=== PATIENT | male | born 1940 | race Caucasian/White ===

== ENCOUNTER → 2016-12-04 | Outpatient (CLI) | payer OTHER, BC ==
[~2016-12-04] MED LIST: ASPI1TAB83 PO; CHOL1TAB2 PO; CRG625 PO; CYAN100020 PO; FISHOIL PO; GLUCTAB7 PO; LISI-729 PO; LPT/40 PO; SERT-234 PO; SITA50TA5 PO; VITA25006 PO; VITACAP26 PO
[2016-12-04 09:51] LABS: ESTIMATED AVERAGE GLUCOSE 148 mg/dl; HA1C FLAG Normal (Normal)
[2016-12-04 10:01] LABS: ALT/SGPT 22 U/L (12-78); AST/SGOT 11 U/L (15-37); BLOOD UREA NITROGEN 25 mg/dl (7-18); BUN/CREATININE RATIO 21.2 (10-20); CALCIUM 8.9 mg/dl (8.5-10.1); CARBON DIOXIDE 24 mmol/L (21-32); CHLORIDE 106 mmol/L (98-107); GLUCOSE 155 mg/dl (70-99); POTASSIUM 4.1 mmol/L (3.5-5.1); SODIUM 139 mmol/L (136-145)
[2016-12-04 10:12] LABS: ALB/GLOB RATIO 1.1 (0.9-2); ALKALINE PHOSPHATASE 49 U/L (45-117); CHOLESTEROL 87 mg/dl (0-200); CHOLESTEROL/HDL RATIO 2.6; HDL CHOLESTEROL 34 mg/dl; LDL CHOLESTEROL CALCULATED 32 mg/dl; RATIO 455.6 mcg/mg (0-30.0); TRIGLYCERIDES 104 mg/dl (0-150); VERY LOW DENSITY LIPOPROT CALC 21 mg/dl
== END | disposition home or self-care (01) ==
LOC: C.LAB1850 08:29
PROVIDERS: ATTEND Family Medicine
DX: I25.10 Atherosclerotic heart disease of native coronary artery without angina pectoris (principal); E11.9 Type 2 diabetes mellitus without complications; E78.5 Hyperlipidemia, unspecified; I10 Essential (primary) hypertension

== ENCOUNTER → 2017-06-29 | Outpatient (CLI) | payer OTHER, BC ==
[~2017-06-29] MED LIST changes: +ASCO100061 PO; +CARV6.252 PO; +CIPR1TAB11 PO; +OMEG10007 PO; +TAMS0.4C38 PO
[2017-06-29 09:28] LABS: HEMATOCRIT 39.1 % (42-52); MEAN CELL VOLUME 95.1 fL (80-100); MEAN CORPUSCULAR HEMOGLOBIN 31.4 pg (25-34); MEAN PLATELET VOLUME 11.9 fL (7.4-10.4); PLATELET COUNT 149 K/uL (130-400); RED BLOOD COUNT 4.11 M/uL (4.7-6.1); WHITE BLOOD COUNT 7.03 K/uL (4.8-10.8)
[2017-06-29 09:45] LABS: ALT/SGPT 23 U/L (12-78); BLOOD UREA NITROGEN 18 mg/dl (7-18); BUN/CREATININE RATIO 16.5 (10-20); CARBON DIOXIDE 28 mmol/L (21-32); CHLORIDE 105 mmol/L (98-107); CHOLESTEROL 103 mg/dl (0-200); GLUCOSE 170 mg/dl (70-99); SODIUM 140 mmol/L (136-145); TRIGLYCERIDES 148 mg/dl (0-150); VERY LOW DENSITY LIPOPROT CALC 30 mg/dl
[2017-06-29 09:47] LABS: ALB/GLOB RATIO 1.1 (0.9-2); ALKALINE PHOSPHATASE 53 U/L (45-117); AST/SGOT 12 U/L (15-37); CHOLESTEROL/HDL RATIO 2.8; HDL CHOLESTEROL 37 mg/dl; LDL CHOLESTEROL CALCULATED 36 mg/dl
[2017-06-29 10:30] LABS: ESTIMATED AVERAGE GLUCOSE 163 mg/dl; HA1C FLAG Normal (Normal)
== END ==
LOC: C.LAB1850 08:11
PROVIDERS: ATTEND Family Medicine
DX: E55.9 Vitamin D deficiency, unspecified (principal); D64.9 Anemia, unspecified; E11.9 Type 2 diabetes mellitus without complications; E78.5 Hyperlipidemia, unspecified

== ENCOUNTER 2017-06-30 08:00 | Emergency (ER) | payer OTHER, BC ==
[~2017-06-30] VITALS: Ht 188 cm; Wt 105.9 kg
[~2017-06-30 08:00] MED LIST changes: -ASCO100061 PO; -CARV6.252 PO; -CIPR1TAB11 PO; -OMEG10007 PO; -TAMS0.4C38 PO
[2017-06-30 08:04] VITALS: TEMP 36.4; Ht 188 cm; Wt 105.9 kg
[2017-06-30] MEDS ORDERED: CARV6.252 PO (08:33)
[2017-06-30] MEDS ORDERED: ASCO100061 PO (08:33)
[2017-06-30] MEDS ORDERED: OMEG10007 PO (08:33)
--- NOTE | 2017-06-30 08:37 | EMERGENCY ROOM VISIT NOTE ---
History First contact with patient: 08:09 Chief Complaint: URINARY SYMPTOMS Stated Complaint: PROBLEMS OF FREQ./PAINFUL URINATION History of Present Illness The patient is a 76 year old male who presents to the Emergency Room with complaints of urinary pain The patient states that he has had 1 day or urinary burning with urination, rates the pain 5/10. The pain is at the meatus. He also urinates with a sense of incomplete voiding. He was urinating 3-4 times per hour but had difficulty getting good urinary flow. He denies any prostate problems. He denies flank pain or CVA pain. He denies abdominal pain, nausea, vomiting, diarrhea, or constipation. He denies chest pain, palpitations, shortness of breath, orthopnea, lower extremity edema. He denies shortness of breath, wheezing, or cough. He has not had fevers, chills or sweats. His appetite and intake of been within normal limits. Review of Systems A 10 point review of systems was negative unless stated above. Past Medical/Surgical History Medical Problems: (1) Ischemic cardiomyopathy (2) Ventricular fibrillation Family History No known family history Social History Smoking Status: Former Smoker Alcohol Use: none Drug Use: none Marital Status: Housing Status: lives with significant other Occupation Status: retired Current/Historical Medications Scheduled Ascorbic Acid (Ascorbic Acid), 1 TAB PO DAILY Aspirin (Aspirin), 81 MG PO DAILY Atorvastatin (Lipitor), 40 MG PO DAILY Carvedilol (Coreg), 6.25 MG PO BID Cholecalciferol (Vitamin D-3), 1,000 INTER.UNIT PO DAILY Ciprofloxacin Tab (Cipro), 2 TAB PO BID Cyanocobalamin (Vitamin B12), 1,000 MCG PO DAILY Fish Oil ([place]-3), 2 CAP PO DAILY Goomobcskaw-Nzqgorqxgqn-Zxj C- (Glucosamine Chondroitin), 1 TAB PO DAILY Lisinopril (Zestril), 5 MG PO DAILY Sertraline (Zoloft), 100 MG PO DAILY Sitagliptin-Metformin Hcl (Janumet), 50-1,000 MG PO BID Tamsulosin Hcl (Flomax), 0.4 MG PO DAILY Allergies NKA Physical Exam Vital Signs Date Time Temp Pulse Resp B/P (MAP) Pulse Ox O2 Delivery O2 Flow Rate FiO2 06/30/17 09:59 70 18 124/58 96 Room Air 06/30/17 08:04 36.4 71 17 126/71 97 Room Air Pain Rating (0-10): 0 Physical Exam Constitutional: Vital signs as above were reviewed. Eyes: Pupils equal, round, and reactive to light. Extraocular muscles are intact. No proptosis. No photophobia. ENT: Mucous membranes are moist. Oropharynx is clear. No sinus tenderness. Cardiovascular: Heart with a regular rate and rhythm. No pedal edema appreciated. Respiratory: Lungs clear to auscultation bilaterally. No wheezes, rales, or rhonchi appreciated. No accessory muscle use. No retractions. No increased work of breathing. GI: Abdomen soft, nontender, nondistended. Normal active bowel sounds. No abdominal hernias appreciated. No rebound. No guarding. No flank pain : No CVA tenderness appreciated. Rectal examination: No obvious prostatic enlargement or tenderness to palpation Musculoskeletal: No midline cervical or vertebral tenderness. No gross deformities. No bony tenderness. No calf swelling or tenderness. Integumentary: Warm, dry, no rashes appreciated. Neurological: Patient awake, alert, and oriented x 3. Lymph: No cervical lymphadenopathy appreciated. Medical Decision & Procedures Laboratory Results Test 06/30/17 08:07 Urine Color YELLOW Urine Appearance CLEAR (CLEAR) Urine pH 5.5 (4.5-7.5) Urine Specific [place] 1.015 (1.000-1.030) Urine Protein 1+ (NEG) Urine Glucose (UA) NEG (NEG) Urine Ketones NEG (NEG) Urine Occult Blood 2+ (NEG) Urine Nitrite NEG (NEG) Urine Bilirubin NEG (NEG) Urine Urobilinogen NEG (NEG) Urine Leukocyte Esterase MODERATE (NEG) Urine WBC (Auto) 10-30 /hpf (0-5) Urine RBC (Auto) 10-30 /hpf (0-4) Urine Hyaline Casts (Auto) 1-5 /lpf (0-5) Urine Epithelial Cells (Auto) 10-20 /lpf (0-5) Urine Bacteria (Auto) NEG (NEG) ED Course 08:10 - The patient was seen and evaluated by Dr. Danyel Rose MD [facility] UA and urine culture ordered 08:40 - Reviewed case with Dr. Katelynn Olmos. Bladder scanned 09:10 - Bladder scanned for 210 ml; catheterization deferred 09:15 - Antibiotics, Flomax prescribed Discussed post-hospital care with patient and plan to be re-assessed by PCP this week Patient discharge paperwork completed; patient discharged in stable condition Medical Decision This is a 76-year-old male presenting with dysuria for 1 day. Differential diagnosis includes urinary tract infection, STI, prostatitis, benign prostatic hypertrophy, pyelonephritis. The patient has stated a history of urinary tract stone, however symptoms were reportedly different at that time compared to now. His [id number] urinalysis did show leukocyte esterase without nitrites, and confirmatory urinalysis showed Leukocyte esterase without nitrites in addition to WBCs in the urine. The patient did not have any overt prostate tenderness or enlargement. The patient did have labs done yesterday by his PCP, in setting of being hemodynamically stable and appearing well, we reviewed these labs and noted that he was at baseline for his hemoglobin as well as his creatinine. As such, there was no acute indication to repeat labs in the emergency room today. The patient was bladder scanned in the emergency room for 210 ml. as such was no indication to place a straight a Mcneil catheter. Urinalysis was suggestive of UTI and outflow obstruction. Therefore both urinary tract infection as well as prostatitis with secondary mild outflow tract obstruction were considered in the diagnosis. Fortunately renal function was reviewed from yesterday and was normal. The patient was discharged on a course of ciprofloxacin with dosage adjusted to cover for a prostatitis. We recommended a minimum of 7 days to cover for urinary tract infection to the patient, and noted to him that the PCP will have to reassess and determine if a full 6 weeks course was required. He was also given Flomax given his symptoms of outflow obstruction. He was discharged in stable condition, given instructions on when to return to the emergency department or see his PCP. Head Trauma GCS Score: 15 Blood Pressure Screening Patient's blood pressure: Normal blood pressure Impression Primary Impression: Urinary tract infection Additional Impression: Prostatitis Departure Information Prescriptions Tamsulosin Hcl (FLOMAX) 0.4 Mg Cap 0.4 MG PO DAILY for 14 Days, #14 CAP Prov: Danyel Rose MD 06/30/17 Ciprofloxacin Tab (Cipro) 250 Mg Tab 2 TAB PO BID for 14 Days, #56 TAB Prov: Danyel Rose MD 06/30/17 Referrals Ritu Farrar MD (PCP) Patient Instructions My [facility] Problem Qualifiers
[2017-06-30 08:54] LABS: URINE APPEARANCE CLEAR (CLEAR); URINE BILIRUBIN NEG (NEG); URINE COLOR YELLOW; URINE NITRITE NEG (NEG); URINE PH 5.5 (4.5-7.5); URINE SPECIFIC GRAVITY 1.015 (1.000-1.030); UROBILINOGEN NEG (NEG)
[2017-06-30 08:59] LABS: MANUAL MICROSCOPIC REQUIRED? NO; REVIEW REQ? NO
[2017-06-30] MEDS ORDERED: TAMS0.4C38 PO (09:17)
[2017-06-30] MEDS ORDERED: CIPR1TAB11 PO (09:17)
[2017-06-30 09:59] VITALS: BP 124/58; PULSE 70; O2SAT 96
--- NOTE | 2017-06-30 14:53 | EMERGENCY ROOM VISIT NOTE ---
ED Visit Note First contact with patient: 08:09 Resident Physician Supervision Note: I interviewed and examined the patient. Discussed with Dr. Rose and agree with findings and plan as documented in the note. Any exceptions or clarifications are listed here: [None] The patient appeared to be doing well on exam. We discussed the urinalysis and physical exam findings. I did explain my concern over prostatitis versus UTI. The patient will be placed on Cipro 500 mg twice a day for 14 days. He will require an extended course and his PCP feels this is concerning for prostatitis at that time. Urine culture is pending. Documented By: Bruna Olmos
== END 2017-06-30 10:02 | disposition home or self-care (01) ==
LOC: C.EDB 08:02
DX: N39.0 Urinary tract infection, site not specified (principal); N41.9 Inflammatory disease of prostate, unspecified; I25.5 Ischemic cardiomyopathy; I49.01 Ventricular fibrillation; Z87.891 Personal history of nicotine dependence; Z79.82 Long term (current) use of aspirin; Z79.899 Other long term (current) drug therapy

== ENCOUNTER → 2017-08-06 | Outpatient (CLI) | payer OTHER, BC ==
[~2017-08-06] MED LIST changes: +ASCO100061 PO; +CARV6.252 PO; -CRG625 PO; -FISHOIL PO; +OMEG10007 PO; -VITA25006 PO; -VITACAP26 PO
== END | disposition home or self-care (01) ==
LOC: C.LAB1850 09:45
PROVIDERS: ATTEND Urology
DX: N41.1 Chronic prostatitis (principal)

== ENCOUNTER → 2017-09-24 | Outpatient (CLI) | payer OTHER, BC ==
--- NOTE | 2017-09-24 10:03 | DIAGNOSTIC IMAGING REPORT ---
KUB CLINICAL HISTORY: BLADDER STONE calcifications COMPARISON STUDY: CT 02/24/2011 FINDINGS: Nonobstructive bowel pattern. Several calcifications overlying the left kidney. Largest measures 3 cm overlying the left renal pelvis. 3 smaller calcifications overlying the lower pole left kidney measuring up to 1 cm. No significant right-sided nephrocalcinosis. Bowel pattern is nonobstructive. IMPRESSION: Several calcifications overlying left renal pelvis and lower pole left kidney with dimensions as noted. Nonobstructive bowel pattern. No significant pelvic bladder calcifications The above report was generated using voice recognition software. It may contain grammatical, syntax or spelling errors. Electronically signed by: Chaka Mason M.D. 09/24/2017 10:02 AM Dictated Date/Time: 09/24/2017 9:59 AM
== END | disposition home or self-care (01) ==
LOC: C.RAD1850 09:13
PROVIDERS: ATTEND Urology
DX: N21.0 Calculus in bladder (principal)

== ENCOUNTER → 2017-10-03 | Outpatient (CLI) | payer OTHER, BC ==
--- NOTE | 2017-10-03 09:55 | DIAGNOSTIC IMAGING REPORT ---
CT SCAN OF THE ABDOMEN AND PELVIS WITHOUT CONTRAST CLINICAL HISTORY: KIDNEY STONES COMPARISON STUDY: 02/24/2011 TECHNIQUE: CT scan of the abdomen and pelvis was performed from the lung bases to the proximal femurs. Images are reviewed in the axial, sagittal, and coronal planes. IV contrast was not administered for this examination. A dose lowering technique was utilized adhering to the principles of ALARA. CT DOSE: 936.52 mGy.cm FINDINGS: Lower chest: There is bilateral subpleural reticulation. There are no pleural effusions. Liver: The unenhanced liver is normal in size, contour, and attenuation. There is no intrahepatic biliary ductal dilatation. Gallbladder: Unremarkable. Spleen: Normal in size and attenuation. Pancreas: Unremarkable. Adrenal glands: Unremarkable. Kidneys: No right renal calculi are visualized. There is no right-sided hydronephrosis. There is mild to moderate left-sided hydronephrosis. There is a 2.5 cm calculus within the left renal pelvis. There are lower pole left renal calculi measuring 7 mm and 10 mm respectively. There are 2 punctate mid pole left renal calculi. There is left renal pelvis edema, likely secondary to obstructive change. Superimposed infection cannot be excluded. There is a ureteral transition at the level of the ureteral pelvic junction. This could be congenital, secondary to a stricture, or be secondary to the left renal pelvic calculus which may intermittently obstruct at this level. Bowel: There are no transition zones indicate bowel obstruction. There is colonic diverticulosis. There are no acute peridiverticular inflammatory changes. There are no findings to indicate acute appendicitis. Peritoneum: There is no intraperitoneal free air or abdominal ascites. There is a small fat-containing left inguinal hernia. Vasculature: The abdominal aorta is normal in course and caliber. Adenopathy: None. Pelvic viscera: The bladder, and pelvic viscera are unremarkable. Skeletal structures: No destructive osseous lesions are seen. IMPRESSION: 1. Left-sided nephrolithiasis. This includes a 2.5 cm calculus within the left renal pelvis, with secondary obstructive changes. There is mild to moderate left-sided hydronephrosis. There is left renal pelvic edema, likely secondary to obstruction although a superimposed infection could appear similar. Electronically signed by: Kevin Frias M.D. 10/03/2017 9:54 AM Dictated Date/Time: 10/03/2017 9:47 AM
== END | disposition home or self-care (01) ==
LOC: C.CTS 09:24
PROVIDERS: ATTEND Urology
DX: N20.0 Calculus of kidney (principal)

== ENCOUNTER 2017-10-26 15:01 | Observation (INO) | payer OTHER, BC ==
[~2017-10-26] VITALS: Ht 188 cm; Wt 100.9 kg
--- NOTE | 2017-10-26 15:35 | EMERGENCY ROOM VISIT NOTE ---
History Report prepared by Vini: Jos Galdamez Under the Supervision of: Dr. Lc Burnham M.D. First contact with patient: 15:27 Chief Complaint: CARDIAC ASSESSMENT Stated Complaint: DIZZINESS, DEFIBRILLATOR WENT OFF History of Present Illness The patient is a 76 year old male who presents to the Emergency Room for a cardiac assessment because his defibrillator suddenly went off around 1420 this afternoon while scraping some ice. He notes that he got dizzy prior to it going off. The patient denies any abdominal pain, fever, chills, nausea, vomiting, and diarrhea. He notes that he has been eating normally. Source of History: patient Onset: 1420 Position: other (heart) Quality: other (defibrillator went off) Timing: other (sudden) Associated Symptoms: No fevers, No chills, No nausea, No vomiting, No abdominal pain, No diarrhea Review of Systems See HPI for pertinent positives & negatives. A total of 10 systems reviewed and were otherwise negative. Past Medical & Surgical Medical Problems: (1) Defibrillator discharge (2) Ischemic cardiomyopathy (3) Ventricular fibrillation Social History Smoking Status: Former Smoker Alcohol Use: none Drug Use: none Marital Status: Housing Status: lives with significant other Occupation Status: retired Current/Historical Medications Scheduled Ascorbic Acid (Ascorbic Acid), 1,000 MG PO DAILY Aspirin (Aspirin), 81 MG PO DAILY Atorvastatin (Lipitor), 40 MG PO DAILY Carvedilol (Coreg), 12.5 MG PO BID Cholecalciferol (Vitamin D-3), 1,000 INTER.UNIT PO DAILY Cinnamon (Cinnamon), 1,000 MG PO DAILY Cyanocobalamin (Vitamin B12), 1,000 MCG PO DAILY Fish Oil ([place]-3), 2 CAP PO DAILY Glucosamine-Chondroitin (Glucosamine/Chondroitin), 1 TAB PO DAILY Lisinopril (Zestril), 20 MG PO DAILY Multivitamin (Multivitamin), 1 TAB PO DAILY Sitagliptin-Metformin Hcl (Janumet), 1 TAB PO BID Allergies Coded Allergies: No Known Allergies (Unverified , ., 06/30/17) Physical Exam Vital Signs Date Time Temp Pulse Resp B/P (MAP) Pulse Ox O2 Delivery O2 Flow Rate FiO2 10/26/17 17:19 68 20 119/75 96 Room Air 10/26/17 16:03 94 Room Air 10/26/17 16:03 94 Room Air 10/26/17 16:03 70 17 128/62 94 Room Air 10/26/17 15:49 69 10/26/17 15:10 36.6 79 18 147/71 97 Physical Exam GENERAL: Patient is a healthy-appearing well-nourished male HEAD: Normocephalic atraumatic EYES: Ocular movements intact pupils equal and react to light OROPHARYNX mucous membranes are moist no exudates present no erythema or edema present NECK: Supple no nuchal rigidity CHEST: Good equal expansion LUNGS: Clear and equal to auscultation CARDIAC: Normal S1 and S2 ABDOMEN: Soft nontender no guarding BACK: No CVA tenderness EXTREMITIES: No pain upon palpation normal muscle strength in all groups no clubbing cyanosis or edema NEURO: Patient is following commands and answering questions appropriately. Alert and oriented x3 Cranial Nerves 2-12 grossly intact Medical Decision & Procedures ER Provider Diagnostic Interpretation: Radiology results as stated below per my review and radiologist interpretation: CHEST ONE VIEW PORTABLE CLINICAL HISTORY: 76 years-old Male presenting with CHEST PAIN. TECHNIQUE: Portable upright AP view of the chest was obtained. COMPARISON: 02/26/2011. FINDINGS: Left subclavian implanted cardiac defibrillator with lead to the right ventricular apex unchanged. Median sternotomy wires and bypass graft rings noted. Multiple mediastinal surgical clips also noted. Atherosclerosis of aortic arch. Cardiac silhouette normal in size. Lungs and pleural spaces clear. Specifically, no pneumothorax. Hyperdensity at the lung apices could suggest calcification or pleurodesis. Post traumatic deformity of the left ribs. Degenerative changes of the spine. Upper abdomen normal. IMPRESSION: 1. No acute cardiopulmonary disease. Electronically signed by: Gavin Torres M.D. 10/26/2017 3:49 PM Dictated Date/Time: 10/26/2017 3:48 PM Laboratory Results 10/26/17 16:00 Red Blood Count 4.16, Mean Corpuscular Volume 93.0, Mean Corpuscular Hemoglobin 32.2, Mean Corpuscular Hemoglobin Concent 34.6, Mean Platelet Volume 12.1, Neutrophils (%) (Auto) 61.9, Lymphocytes (%) (Auto) 24.9, Monocytes (%) (Auto) 10.4, Eosinophils (%) (Auto) 2.4, Basophils (%) (Auto) 0.1, Neutrophils # (Auto ) 4.32, Lymphocytes # (Auto) 1.74, Monocytes # (Auto) 0.73, Eosinophils # (Auto ) 0.17, Basophils # (Auto) 0.01 Test 10/26/17 16:00 10/26/17 17:20 White Blood Count 6.99 K/uL (4.8-10.8) Red Blood Count 4.16 M/uL (4.7-6.1) Hemoglobin 13.4 g/dL (14.0-18.0) Hematocrit 38.7 % (42-52) Mean Corpuscular Volume 93.0 fL (80-100) Mean Corpuscular Hemoglobin 32.2 pg (25-34) Mean Corpuscular Hemoglobin Concent 34.6 g/dl (32-36) Platelet Count 153 K/uL (130-400) Mean Platelet Volume 12.1 fL (7.4-10.4) Neutrophils (%) (Auto) 61.9 % Lymphocytes (%) (Auto) 24.9 % Monocytes (%) (Auto) 10.4 % Eosinophils (%) (Auto) 2.4 % Basophils (%) (Auto) 0.1 % Neutrophils # (Auto) 4.32 K/uL (1.4-6.5) Lymphocytes # (Auto) 1.74 K/uL (1.2-3.4) Monocytes # (Auto) 0.73 K/uL (0.11-0.59) Eosinophils # (Auto) 0.17 K/uL (0-0.5) Basophils # (Auto) 0.01 K/uL (0-0.2) RDW Standard Deviation 45.7 fL (36.4-46.3) RDW Coefficient of Variation 13.4 % (11.5-14.5) Immature Granulocyte % (Auto) 0.3 % Immature Granulocyte # (Auto) 0.02 K/uL (0.00-0.02) Prothrombin Time 10.2 SECONDS (9.0-12.0) Prothromb Time International Ratio 1.0 (0.9-1.1) Activated Partial Thromboplast Time 25.2 SECONDS (21.0-31.0) Partial Thromboplastin Ratio 1.0 Total Bilirubin 0.5 mg/dl (0.2-1) Direct Bilirubin 0.1 mg/dl (0-0.2) Aspartate Amino Transf (AST/SGOT) 18 U/L (15-37) Alanine Aminotransferase (ALT/SGPT) 30 U/L (12-78) Alkaline Phosphatase 57 U/L (45-117) Total Creatine Kinase 72 U/L (39-308) Creatine Kinase MB 1.7 ng/ml (0.5-3.6) Creatine Kinase MB Ratio 2.4 (0-3.0) Total Protein 7.7 gm/dl (6.4-8.2) Albumin 3.8 gm/dl (3.4-5.0) Lipase 477 U/L (73-393) Influenza Type A Antigen Neg for Influ A (NEG) Influenza Type B Antigen Neg for Influ B (NEG) Labs reviewed by ED physician. Medications Administered Medications (Trade) Dose Ordered Sig/Tomy Route Start Time Stop Time Status Last Admin Dose Admin Amiodarone HCl (Cordarone Tab) 200 mg NOW STAT PO 10/26/17 17:01 10/26/17 17:02 DC 10/26/17 17:20 200 MG ECG Indication: other (defibrillator went off) Rate (beats per minute): 74 Rhythm: normal sinus Findings: other (Sinus arrythmia and old inferior infarct) Change: Patient's electrocardiogram per my interpretation. ED Course 1527: Past medical records reviewed. The patient was evaluated in room B11. A complete history and physical examination was performed. 1617: I discussed the patient's case with Dr. Serra - Cardiology, and he is going to talk with Dr. Mcnair - Cardiology about the case. 1701: Amiodarone HCl 200mg PO 1710: I reevaluated the patient, and I discussed the treatment plan with him and his family. He will be evaluated for further management by the hospitalist. 1713: I discussed the patient's case with Dr. Vazquez - [facility] Hospitalist, he has agreed to evaluate the patient for further management and care. Medical Decision Differential diagnosis: Etiologies such as cardiac ischemia, aortic dissection, pulmonary embolism, pneumonia, pneumothorax, musculoskeletal, infections, pericarditis, myocarditis , esophageal rupture, gastrointestinal, as well as others were entertained. This is a 76-year-old male who presents emergency department after in ICD firing. I did discuss the patient with his salesperson automobiles who asked that the patient be admitted and started on amiodarone. The pacer was interrogated by the [employer] and he has had 7 such episodes this week. Patient and family were in agreement with the treatment plan. Medication Reconcilliation Current Medication List: was personally reviewed by me Blood Pressure Screening Patient's blood pressure: Elevated blood pressure Monitored by the hospitalist Consults Time Called: 1701 Consulting Physician: Dr. George BERG Hospitalist Returned Call: [phone] I discussed the patient's case with Dr. Dr. George BERG Hospitalist, he has agreed to evaluate the patient for further management and care. Additional Consults: Time Called: 161 Consulted Physician: Dr. Serra - Cardiology Returned Call: [phone] Additional Comments: I discussed the patient's case with Dr. Maryse Riojas Cardiology, and he is going to talk with Dr. Mcnair - Cardiology about the case. Impression Primary Impression: Ventricular tachycardia Additional Impression: Defibrillator discharge Scribe Attestation The scribe's documentation has been prepared under my direction and personally reviewed by me in its entirety. I confirm that the note above accurately reflects all work, treatment, procedures, and medical decision making performed by me. Departure Information Dispostion Being Evaluated By Hospitalist Referrals Ritu Farrar MD (PCP) Patient Instructions My [facility] Problem Qualifiers
--- NOTE | 2017-10-26 15:51 | DIAGNOSTIC IMAGING REPORT ---
CHEST ONE VIEW PORTABLE CLINICAL HISTORY: 76 years-old Male presenting with CHEST PAIN. TECHNIQUE: Portable upright AP view of the chest was obtained. COMPARISON: 02/26/2011. FINDINGS: Left subclavian implanted cardiac defibrillator with lead to the right ventricular apex unchanged. Median sternotomy wires and bypass graft rings noted. Multiple mediastinal surgical clips also noted. Atherosclerosis of aortic arch. Cardiac silhouette normal in size. Lungs and pleural spaces clear. Specifically, no pneumothorax. Hyperdensity at the lung apices could suggest calcification or pleurodesis. Post traumatic deformity of the left ribs. Degenerative changes of the spine. Upper abdomen normal. IMPRESSION: 1. No acute cardiopulmonary disease. Electronically signed by: Gavin Torres M.D. 10/26/2017 3:49 PM Dictated Date/Time: 10/26/2017 3:48 PM
[2017-10-26] MEDS ORDERED: GLUC750T18 PO (16:03)
[2017-10-26] MEDS ORDERED: MULT-506 PO (16:03)
[2017-10-26] MEDS ORDERED: LISI-725 PO (16:03)
[2017-10-26] MEDS ORDERED: CINN1CAP2 PO (16:03)
[2017-10-26] MEDS ORDERED: CARV12.52 PO (16:03)
[2017-10-26 16:18] LABS: BASO % 0.1 %; BASO ABS # 0.01 K/uL (0-0.2); EOS % 2.4 %; EOS ABS # 0.17 K/uL (0-0.5); HEMATOCRIT 38.7 % (42-52); HEMOGLOBIN 13.4 g/dL (14.0-18.0); IG# 0.02 K/uL (0.00-0.02); LYMPH % 24.9 %; LYMPH ABS # 1.74 K/uL (1.2-3.4); MEAN CORPUSCULAR HEMOGLOBIN 32.2 pg (25-34); MEAN CORPUSCULAR HGB CONC 34.6 g/dl (32-36); MEAN PLATELET VOLUME 12.1 fL (7.4-10.4); MONO % 10.4 %; MONO ABS # 0.73 K/uL (0.11-0.59); NEUT % 61.9 %; NEUT ABS # 4.32 K/uL (1.4-6.5); PLATELET COUNT 153 K/uL (130-400); RED CELL DISTRIBUTION WIDTH CV 13.4 % (11.5-14.5); RED CELL DISTRIBUTION WIDTH SD 45.7 fL (36.4-46.3); WHITE BLOOD COUNT 6.99 K/uL (4.8-10.8)
[2017-10-26 16:38] LABS: ALBUMIN 3.8 gm/dl (3.4-5.0); ALT/SGPT 30 U/L (12-78); AST/SGOT 18 U/L (15-37); BLOOD UREA NITROGEN 24 mg/dl (7-18); CALCIUM 9.2 mg/dl (8.5-10.1); CARBON DIOXIDE 25 mmol/L (21-32); CREATININE 1.23 mg/dl (0.60-1.40); GLUCOSE 173 mg/dl (70-99); LIPASE 477 U/L (73-393); POTASSIUM 4.2 mmol/L (3.5-5.1); SODIUM 136 mmol/L (136-145)
[2017-10-26 16:43] LABS: ALKALINE PHOSPHATASE 57 U/L (45-117); CKMB 1.7 ng/ml (0.5-3.6); TOTAL PROTEIN 7.7 gm/dl (6.4-8.2)
[2017-10-26] MEDS ORDERED: AMIODARONE 200 MG TAB PO STA (17:01)
[2017-10-26] MEDS ORDERED: ACETAMINOPHEN 325 MG TAB PO PRN (17:30)
[2017-10-26] MEDS ORDERED: ALUMINUM/MAGNESIUM/SIMETH (MAALOX MAX) 30 ML UDC PO PRN (17:30)
[2017-10-26] MEDS ORDERED: NITROGLYCERIN 0.4 MG SL PER TAB CHARGE SL PRN (17:30)
[2017-10-26] MEDS ORDERED: MoRPHine SULFATE 2 MG/ML CARP IV PRN (17:30)
[2017-10-26] MEDS ORDERED: ONDANSETRON INJ 2 MG/ML 2 ML VIAL IV PRN (17:30)
[2017-10-26] MEDS ORDERED: MAGNESIUM HYDROXIDE SUSP 30 ML UDC PO PRN (17:30)
[2017-10-26] MEDS ORDERED: POLYETHYLENE (MIRALAX) 17 GM PACK PO PRN (17:30)
[2017-10-26 18:00] LABS: INFLUENZA B ANTIGEN Neg for Influ B (NEG)
--- NOTE | 2017-10-26 18:02 | History and Physical ---
History & Physical Date & Time of Service: Oct 26, 2017 at 17:36 Chief Complaint: Dizziness, Defibrillator Went Off Primary Care Physician: Ritu Farrar MD History of Present Illness Source: patient 76 y/o M Hx CAD, HTN, HPL, DM II, VF - defib placed 2001 - the pt had an episode of lightheadedness followed by his defibrillator discharging. This prompted him to attend the ER. His defibrillator was interrogated and 7 runs of sustained VT were appreciated over the past week. Cardiology was alerted and have instructed on admission for Amiodarone loading. The pt denies any CP, SOB, N/V, diaphoresis or fevers. 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 Smoking Status: Former Smoker Drug Use: none Marital Status: Housing status: lives with family Occupational Status: retired Immunizations History of Influenza Vaccine: N/A History of Tetanus Vaccine?: Yes History of Pneumococcal: Yes History of Hepatitis B Vaccine: No Multi-Drug Resistant Organisms History of MDRO: No Allergies Coded Allergies: No Known Allergies (Unverified , ., 06/30/17) Home Medications Scheduled Ascorbic Acid (Ascorbic Acid), 1,000 MG PO DAILY Aspirin (Aspirin), 81 MG PO DAILY Atorvastatin (Lipitor), 40 MG PO DAILY Carvedilol (Coreg), 12.5 MG PO BID Cholecalciferol (Vitamin D-3), 1,000 INTER.UNIT PO DAILY Cinnamon (Cinnamon), 1,000 MG PO DAILY Cyanocobalamin (Vitamin B12), 1,000 MCG PO DAILY Fish Oil ([place]-3), 2 CAP PO DAILY Glucosamine-Chondroitin (Glucosamine/Chondroitin), 1 TAB PO DAILY Lisinopril (Zestril), 20 MG PO DAILY Multivitamin (Multivitamin), 1 TAB PO DAILY Sitagliptin-Metformin Hcl (Janumet), 1 TAB PO BID Review of Systems Constitutional: No fever, No chills, No sweats Eyes: No worsening of vision ENT: No hearing loss, No unusual epistaxis, No nasal symptoms Respiratory: No cough, No sputum, No wheezing Cardiovascular: No chest pain, No orthopnea, No PND Abdomen: No pain, No vomiting Musculoskeletal: No joint pain Genitourinary - Male: No hematuria, No dysuria Neurologic: + problem reported (lightheaded prior to defib firing), No memory loss, No paralysis, No weakness Psychiatric: No depression symptoms Endocrine: No fatigue Hematologic / Lymphatic: No abnormal bleeding/bruising Integumentary: No rash Allergic / Immunologic: No environmental allergies Physical Exam Vital Signs Date Time Temp Pulse Resp B/P (MAP) Pulse Ox O2 Delivery O2 Flow Rate FiO2 10/26/17 17:19 68 20 119/75 96 Room Air 10/26/17 16:03 94 Room Air 10/26/17 16:03 94 Room Air 10/26/17 16:03 70 17 128/62 94 Room Air 10/26/17 15:49 69 10/26/17 15:10 36.6 79 18 147/71 97 General Appearance: WD/WN, no apparent distress, + pertinent finding (PLeasant , elderly male - AAO x 3 - no distress) Head: normocephalic Eyes: normal inspection ENT: normal ENT inspection, pharynx normal Neck: supple, no JVD Respiratory/Chest: chest non-tender, lungs clear, normal breath sounds Cardiovascular: regular rate, rhythm, no edema, no gallop Abdomen/GI: normal bowel sounds, non tender, soft Back: normal inspection Extremities/Musculoskelatal: normal inspection, no calf tenderness Neurologic/Psych: 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 II-XII nml as tested, no motor/sensory deficits, alert, oriented x 3 Skin: normal color Diagnostics Laboratory Results Results Past 24 Hours Test 10/26/17 16:00 10/26/17 17:20 Range/Units White Blood Count 6.99 4.8-10.8 K/uL Red Blood Count 4.16 4.7-6.1 M/uL Hemoglobin 13.4 14.0-18.0 g/dL Hematocrit 38.7 42-52 % Mean Corpuscular Volume 93.0 80-100 fL Mean Corpuscular Hemoglobin 32.2 25-34 pg Mean Corpuscular Hemoglobin Concent 34.6 32-36 g/dl Platelet Count 153 130-400 K/uL Mean Platelet Volume 12.1 7.4-10.4 fL Neutrophils (%) (Auto) 61.9 % Lymphocytes (%) (Auto) 24.9 % Monocytes (%) (Auto) 10.4 % Eosinophils (%) (Auto) 2.4 % Basophils (%) (Auto) 0.1 % Neutrophils # (Auto) 4.32 1.4-6.5 K/uL Lymphocytes # (Auto) 1.74 1.2-3.4 K/uL Monocytes # (Auto) 0.73 0.11-0.59 K/uL Eosinophils # (Auto) 0.17 0-0.5 K/uL Basophils # (Auto) 0.01 0-0.2 K/uL RDW Standard Deviation 45.7 36.4-46.3 fL RDW Coefficient of Variation 13.4 11.5-14.5 % Immature Granulocyte % (Auto) 0.3 % Immature Granulocyte # (Auto) 0.02 0.00-0.02 K/uL Sodium Level 136 136-145 mmol/L Potassium Level 4.2 3.5-5.1 mmol/L Chloride Level 103 98-107 mmol/L Carbon Dioxide Level 25 21-32 mmol/L Anion Gap 8.0 3-11 mmol/L Blood Urea Nitrogen 24 7-18 mg/dl Creatinine 1.23 0.60-1.40 mg/dl Est Creatinine Clear Calc Drug Dose 66.7 ml/min Estimated GFR () 66.1 Estimated GFR (Non- 57.1 BUN/Creatinine Ratio 19.8 10-20 Random Glucose 173 70-99 mg/dl Calcium Level 9.2 8.5-10.1 mg/dl Total Bilirubin 0.5 0.2-1 mg/dl Direct Bilirubin 0.1 0-0.2 mg/dl Aspartate Amino Transf (AST/SGOT) 18 15-37 U/L Alanine Aminotransferase (ALT/SGPT) 30 12-78 U/L Alkaline Phosphatase 57 45-117 U/L Total Creatine Kinase 72 39-308 U/L Creatine Kinase MB 1.7 0.5-3.6 ng/ml Creatine Kinase MB Ratio 2.4 0-3.0 Troponin I < 0.015 0-0.045 ng/ml Total Protein 7.7 6.4-8.2 gm/dl Albumin 3.8 3.4-5.0 gm/dl Lipase 477 73-393 U/L EKG Irregular sinus rhythm - inf inversions which are present on a previous EKG Impression Assessment and Plan 76 y/o M Hx CAD, HTN, HPL, DM II, VF - defib placed 2001 - the pt had an episode of lightheadedness followed by his defibrillator discharging. This prompted him to attend the ER. His defibrillator was interrogated and 7 runs of sustained VT were appreciated over the past week. Cardiology was alerted and have instructed on admission for Amiodarone loading. The pt denies any CP, SOB, N/V, diaphoresis or fevers. 1) Sustained VT - defib discharge - monitor on telemetry - started on loading dose of PO Amio per cardio instructions - will be evaluated by his warehouse logistics manager as inpatient 2) HTN - cont Carvedilol, Lisinopril 3) HPL - cont Atorvastatin 4) DM - placed on a SS Full code - Lovenox prophylaxis Total time for this admit including review of labs, meds, imaging, records - discussion with pt and ER attending - 40 min Level of Care Telemetry Resuscitation Status FULL RESUSCITATION VTE Prophylaxis VTE Risk Assessment Done? Y/N: Yes Risk Level: Moderate Given or contraindicated: Enoxaparin (Lovenox)SQ
[2017-10-26 19:26] VITALS: BP 131/72; PULSE 73; TEMP 36.7; O2SAT 95; Ht 188 cm; Wt 100.9 kg
[2017-10-26] MEDS: INSULIN ASPART 100 UNITS/ML 3 ML PEN SC SCH (19:44)
[2017-10-26 19:58] LABS: PTT PATIENT 25.2 SECONDS (21.0-31.0)
[2017-10-26] MEDS: CARVEDILOL 12.5 MG TAB PO SCH (21:13)
[2017-10-26] MEDS: AMIODARONE 200 MG TAB PO SCH (21:13)
[2017-10-26] MEDS ORDERED: IV FLUIDS COMPLETED PRN (21:15)
[2017-10-26] MEDS: ENOXAPARIN 40 MG/0.4 ML SYR SQ SCH (21:42)
[2017-10-26 23:12] VITALS: PULSE 77; O2SAT 98
[2017-10-26 23:39] VITALS: BP 107/60; PULSE 67; TEMP 36.4; O2SAT 97
[2017-10-27] VITALS (8 sets, daily range): BP systolic 91–128; BP diastolic 48–76; PULSE 65–73; TEMP 36.3–36.8; O2SAT 94–98
[2017-10-27] MEDS: CARVEDILOL 12.5 MG TAB PO SCH ×2 (07:25→21:44)
[2017-10-27] MEDS: ATORVASTATIN 20 MG TAB PO SCH (07:26)
[2017-10-27] MEDS: ASPIRIN 81 MG ECTAB PO SCH (07:26)
[2017-10-27] MEDS: AMIODARONE 200 MG TAB PO SCH ×4 (07:27→21:44)
[2017-10-27] MEDS: LISINOPRIL 20 MG TAB PO SCH (07:27)
[2017-10-27] MEDS: CYANOCOBALAMIN 500 MCG TAB (VIT B-12) PO SCH (07:28)
[2017-10-27] MEDS: INSULIN ASPART 100 UNITS/ML 3 ML PEN SC SCH ×4 (08:25→21:00)
[2017-10-27 08:28] LABS: BLOOD UREA NITROGEN 22 mg/dl (7-18); CALCIUM 8.9 mg/dl (8.5-10.1); CARBON DIOXIDE 28 mmol/L (21-32); CREATININE 1.26 mg/dl (0.60-1.40); GLUCOSE 199 mg/dl (70-99); POTASSIUM 4.3 mmol/L (3.5-5.1); SODIUM 137 mmol/L (136-145)
--- NOTE | 2017-10-27 14:03 | Hospitalist Progress Note ---
Hospitalist Progress Note Date of Service Oct 27, 2017. Subjective Pt evaluation today including: conversation w/ patient Patient is feeling well. He denies chest pain or shortness of breath. He did have a 14 beat run of V. tach on telemetry, followed by 1 normal beat, and then another 4 beat run of V. tach. All Other Systems: Reviewed and Negative Objective Vital Signs Date Time Temp Pulse Resp B/P (MAP) Pulse Ox O2 Delivery O2 Flow Rate FiO2 10/27/17 11:46 36.4 65 16 106/65 (79) 96 Nasal Cannula 10/27/17 11:36 Room Air 10/27/17 08:00 36.4 66 18 104/62 (76) 94 Room Air 10/27/17 08:00 Room Air 10/27/17 04:25 36.3 66 18 116/76 (89) 98 Room Air 10/27/17 04:00 Room Air 10/26/17 23:39 36.4 67 18 107/60 (76) 97 BiPAP 10/26/17 23:30 Room Air 10/26/17 23:12 77 98 10/26/17 20:00 Room Air 10/26/17 19:26 36.7 73 20 131/72 95 Room Air 10/26/17 18:44 74 22 158/90 95 10/26/17 17:19 68 20 119/75 96 Room Air 10/26/17 16:03 94 Room Air 10/26/17 16:03 94 Room Air 10/26/17 16:03 70 17 128/62 94 Room Air 10/26/17 15:49 69 10/26/17 15:10 36.6 79 18 147/71 97 Physical Exam General Appearance: WD/WN, no apparent distress Eyes: normal inspection, sclerae normal ENT: hearing grossly normal Neck: trachea midline Respiratory/Chest: lungs clear, normal breath sounds, no respiratory distress, no accessory muscle use Cardiovascular: regular rate, rhythm, no edema, no gallop, no murmur Abdomen: normal bowel sounds, non tender, soft, no organomegaly Extremities: non-tender, normal inspection, no pedal edema, no calf tenderness Neurologic/Psychiatric: no motor/sensory deficits, alert, normal mood/affect, oriented x 3 Skin: normal color, warm/dry, no rash Laboratory Results Last 24 Hours Test 2/9/18 16:00 10/26/17 17:20 10/26/17 19:23 10/27/17 06:48 White Blood Count 6.99 K/uL Red Blood Count 4.16 M/uL Hemoglobin 13.4 g/dL Hematocrit 38.7 % Mean Corpuscular Volume 93.0 fL Mean Corpuscular Hemoglobin 32.2 pg Mean Corpuscular Hemoglobin Concent 34.6 g/dl Platelet Count 153 K/uL Mean Platelet Volume 12.1 fL Neutrophils (%) (Auto) 61.9 % Lymphocytes (%) (Auto) 24.9 % Monocytes (%) (Auto) 10.4 % Eosinophils (%) (Auto) 2.4 % Basophils (%) (Auto) 0.1 % Neutrophils # (Auto) 4.32 K/uL Lymphocytes # (Auto) 1.74 K/uL Monocytes # (Auto) 0.73 K/uL Eosinophils # (Auto) 0.17 K/uL Basophils # (Auto) 0.01 K/uL RDW Standard Deviation 45.7 fL RDW Coefficient of Variation 13.4 % Immature Granulocyte % (Auto) 0.3 % Immature Granulocyte # (Auto) 0.02 K/uL Prothrombin Time 10.2 SECONDS Prothromb Time International Ratio 1.0 Activated Partial Thromboplast Time 25.2 SECONDS Partial Thromboplastin Ratio 1.0 Sodium Level 136 mmol/L Potassium Level 4.2 mmol/L Chloride Level 103 mmol/L Carbon Dioxide Level 25 mmol/L Anion Gap 8.0 mmol/L Blood Urea Nitrogen 24 mg/dl Creatinine 1.23 mg/dl Est Creatinine Clear Calc Drug Dose 66.7 ml/min Estimated GFR () 66.1 Estimated GFR (Non- 57.1 BUN/Creatinine Ratio 19.8 Random Glucose 173 mg/dl Calcium Level 9.2 mg/dl Total Bilirubin 0.5 mg/dl Direct Bilirubin 0.1 mg/dl Aspartate Amino Transf (AST/SGOT) 18 U/L Alanine Aminotransferase (ALT/SGPT) 30 U/L Alkaline Phosphatase 57 U/L Total Creatine Kinase 72 U/L Creatine Kinase MB 1.7 ng/ml Creatine Kinase MB Ratio 2.4 Troponin I < 0.015 ng/ml Total Protein 7.7 gm/dl Albumin 3.8 gm/dl Lipase 477 U/L Influenza Type A Antigen Neg for Influ A Influenza Type B Antigen Neg for Influ B Bedside Glucose 188 mg/dl 208 mg/dl Test 10/27/17 07:48 10/27/17 11:20 Sodium Level 137 mmol/L Potassium Level 4.3 mmol/L Chloride Level 102 mmol/L Carbon Dioxide Level 28 mmol/L Anion Gap 7.0 mmol/L Blood Urea Nitrogen 22 mg/dl Creatinine 1.26 mg/dl Est Creatinine Clear Calc Drug Dose 64.2 ml/min Estimated GFR () 64.2 Estimated GFR (Non- 55.4 BUN/Creatinine Ratio 17.5 Random Glucose 199 mg/dl Calcium Level 8.9 mg/dl Magnesium Level 2.1 mg/dl Troponin I < 0.015 ng/ml Bedside Glucose 197 mg/dl Assessment and Plan Patient is a 76 y/o male with a history of CAD S/P three-vessel CABG in 1998, HTN, HPL, DM II, VF - defib placed 2001 - the pt had an episode of lightheadedness followed by his defibrillator discharging. This prompted him to attend the ER. His defibrillator was interrogated and 7 runs of sustained VT were appreciated over the past week. Cardiology was alerted and have instructed on admission for Amiodarone loading. The pt denies any CP, SOB, N/V , diaphoresis or fevers. 1) Sustained VT - defib discharge -has had some recurrence of nonsustained V. tach since admission. Troponin negative 2. 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 Hemoglobin A1c well controlled at 7.3% in 2016 -Okay to restart home Janumet mg p.o. twice daily -Accu-Cheks and SSI-added carbohydrate coverage and lowered to the correction factor -Check hemoglobin A1c in the morning Full code - Lovenox prophylaxis Continued [facility] stay due to: abnormal vital signs Discharge planning: home
--- NOTE | 2017-10-27 16:13 | CARDIOLOGY CONSULTATION ---
DATE OF CONSULTATION: 10/27/2017 PERTINENT HISTORY: Mr. Carroll is a 76-year-old male admitted yesterday afternoon a defibrillator discharge. This consultation was ordered to assist in his cardiac management. Of note, he typically follows Dr. Craroll and Dr. Mcnair in the outpatient setting. The patient was in his usual state of health until yesterday afternoon when he had the abrupt onset of dizziness and then received a defibrillator discharge. He was scraping some ice at the time of this event. He then presented to the Emergency Room for further care. The [employer] public health representative interrogated his device and noted a total of 7 episodes of ventricular fibrillation. The initial 6 episodes were terminated by antitachycardia pacing. The 7th one required a defibrillation as described. The patient had been completely asymptomatic leading up to that defibrillator discharge. He has not experienced any palpitations. He also denies exertional anginal pectoris or limiting dyspnea. He further denies syncope, presyncope, PND, orthopnea, lower extremity edema, and claudication. The patient did have a device interrogation performed by Dr. Mcnair on 08/27/2017. This revealed only 1 episode of ventricular tachycardia which occurred on 09/02/2016. The patient had a stress echocardiogram performed in May 2016, which noted mild left ventricular dysfunction with an ejection fraction of 40-45%. There is an inferior wall motion abnormality. Stress images suggested diana-infarction ischemia. MEDICATIONS: Reviewed in detail. PAST MEDICAL HISTORY: 1. Coronary artery disease -- status post NM in 1988. 2. CABG x3 - 1998 -- JUNG to the LAD, radial artery graft to the OM1, and an SVG to the PDA. 3. Nonsustained ventricular tachycardia. 4. Single chamber ICD -- 2002, 2011. 5. Hypertension. 6. Hypercholesterolemia. 7. Diabetes mellitus. 8. Obstructive sleep apnea. 9. Nephrolithiasis. 10. BPH. 11. Depression. MEDICATIONS: 1. Carvedilol 12.5 mg b.i.d. 2. Lisinopril 20 mg per day. 3. Lipitor 40 mg at bedtime. 4. Aspirin 81 mg per day. 5. Vitamin B12 1000 mcg daily. 6. Glucophage 1000 mg b.i.d. 7. Januvia 50 mg b.i.d. 8. Lovenox 40 mg subQ daily. 9. Amiodarone 400 mg q.i.d. -- to be reduced. ALLERGIES: None. SOCIAL HISTORY: The patient is and lives with his . 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 Does not use tobacco or alcohol. FAMILY HISTORY: Father at age 47 from an NM. Mother at age 87 from a drug interaction. REVIEW OF SYSTEMS: A 10-point review of systems is negative except for that described above. PHYSICAL EXAMINATION: GENERAL: This is a well-developed, well-nourished white male in no acute distress. VITAL SIGNS: Blood pressure is 106/65 with a regular pulse of 65. Respiratory rate is 16. The patient is afebrile at 36.4 degrees Celsius. Saturations 96% on room air. HEENT: Negative. NECK: Supple with full carotid upstrokes. No carotid bruits. Jugular venous pressure is flat at 90 degrees. There is no thyromegaly. CARDIOVASCULAR: Reveals a regular rhythm with a normal S1 and S2. A 1/6 basal systolic ejection murmur is noted. No S3 or S4. CHEST: Reveals a well-healed midline scar. Palpable device is noted in the left subclavicular region. ABDOMEN: Soft without bruits. EXTREMITIES: Reveal intact radial artery pulses bilaterally. There is no peripheral edema. DATA: CBC notes a hemoglobin of 13.4, hematocrit 38.7, white count 6.99, platelet count 153,000. Electrolytes note a sodium of 137, potassium 4.3, chloride 102, bicarbonate 28, BUN 22, creatinine 1.26, glucose 199. Troponin I levels less than 0.015 x2. Chest x-ray notes a left-sided ICD. EKG notes sinus rhythm with an old inferior myocardial infarction. lunchroom monitor noted a 14-beat followed by a 4-beat run of ventricular tachycardia. No therapy is necessary. IMPRESSION: Mr. Carroll experienced 7 episodes of ventricular tachycardia which required therapies from his device. This occurred in approximately 1 week's time. I suggest initiating amiodarone to reduce his ventricular dysrhythmia. This was discussed with both Dr. Lisa and Dr. Mcnair who agreed. PLAN: 1. Change amiodarone to 200 mg q.i.d. 2. Continue all other medications. 3. Will likely be discharged tomorrow afternoon. 4. Further recommendations depending on his clinical course.
[2017-10-27] MEDS ORDERED: METFORMIN HCL 500 MG TAB PO SCH (16:15)
[2017-10-27] MEDS: SITAGLIPTIN 25 MG TAB PO SCH (21:43)
[2017-10-27] MEDS: ENOXAPARIN 40 MG/0.4 ML SYR SQ SCH (21:48)
[2017-10-28 04:16] VITALS: BP 107/65; PULSE 61; TEMP 36.4; O2SAT 99
[2017-10-28 06:17] LABS: CALCIUM 8.7 mg/dl (8.5-10.1); CREATININE 1.44 mg/dl (0.60-1.40); POTASSIUM 4.2 mmol/L (3.5-5.1)
[2017-10-28 07:23] VITALS: BP 114/69; PULSE 73; TEMP 36.5; O2SAT 92
[2017-10-28] MEDS: CYANOCOBALAMIN 500 MCG TAB (VIT B-12) PO SCH (07:57)
[2017-10-28] MEDS: SITAGLIPTIN 25 MG TAB PO SCH (07:57)
[2017-10-28] MEDS: ATORVASTATIN 20 MG TAB PO SCH (07:57)
[2017-10-28] MEDS: LISINOPRIL 20 MG TAB PO SCH (07:57)
[2017-10-28] MEDS: CARVEDILOL 12.5 MG TAB PO SCH (07:58)
[2017-10-28] MEDS: AMIODARONE 200 MG TAB PO SCH ×2 (07:58→11:52)
[2017-10-28] MEDS: ASPIRIN 81 MG ECTAB PO SCH (07:58)
[2017-10-28] MEDS: INSULIN ASPART 100 UNITS/ML 3 ML PEN SC SCH ×2 (08:00→11:54)
--- NOTE | 2017-10-28 10:07 | CARDIOLOGY PROGRESS NOTE ---
DATE: 10/28/2017 SUBJECTIVE: Mr. Carroll is resting comfortably in the bedside chair without complaints of chest pain, dyspnea, or palpitations. He also denies defibrillator discharges. OBJECTIVE: VITAL SIGNS: Blood pressure is 107/65 with a regular pulse of 61. Respiratory rate is 18. The patient is afebrile at 36.4 degrees Celsius. Saturation 99% on room air. NECK: Supple with full carotid upstrokes. No carotid bruits. Jugular venous pressure is flat at 90 degrees. There is no thyromegaly. CARDIOVASCULAR: Reveals a regular rhythm with normal S1 and S2. No S3, S4, or murmurs are noted. LUNGS: Clear without rales, rhonchi, or wheezes. ABDOMEN: Soft, nontender without bruits. EXTREMITIES: Reveal intact radial artery pulses bilaterally. There is no peripheral edema. DATA: CBC notes a hemoglobin of 13.4, hematocrit 38.7, white count 6.99, platelet count 153,000. Electrolytes note a sodium of 135, potassium 4.2, chloride 103, bicarb 26, BUN 30, creatinine 1.44, glucose 172. furniture designer noted one brief episode of ventricular tachycardia numbering 7 beats at approximately 12:30 a.m. IMPRESSION AND PLAN: 1. Recurrent ventricular tachycardia -- patient has tolerated the addition of amiodarone to his medical regimen. We will decrease him to 200 mg b.i.d. until seen by Dr. Mcnair in the outpatient setting. 2. Coronary artery disease -- status post myocardial infarction in 1988 and a 3-vessel bypass in 1998. Quiescent on his current medical regimen. 3. Single chamber implantable cardioverter-defibrillator - implanted in 2002, generator change in 2011. 4. Hypertension -- controlled. 5. Hypercholesterolemia -- continue statin. 6. Diabetes mellitus. 7. Disposition -- stable for hospital discharge.
[2017-10-28 11:40] VITALS: BP 114/69; PULSE 73; TEMP 36.5; O2SAT 92
[2017-10-28] MEDS ORDERED: CRD200 PO (11:40)
--- NOTE | 2017-10-28 11:49 | Discharge Instructions ---
Discharge Instructions Date of Service Oct 28, 2017. Admission Reason for Admission: Defibrillator Discharge Discharge Discharge Diagnosis / Problem: Defibrillator firing due to ventricular tachycardia Discharge Goals Goal(s): Learn about illness, Diagnostic testing, Therapeutic intervention Activity Recommendations Activity Limitations: resume your previous activity . Instructions / Follow-Up Instructions / Follow-Up From Dr. Marsh - You were admitted to the hospital because of your defibrillator firing. The [employer] malt liquors sales representative checked the device and confirmed that you had multiple episodes of ventricular tachycardia leading to the shocks. You were seen by Dr. Chele Serra, cardiology, who recommended starting amiodarone to PREVENT the ventricular tachycardia. At discharge we recommend AMIODARONE 200MG TWICE A DAY. This has been called into [facility], for you. Please see Dr. Mcnair, [facility] cardiology, within 2 weeks for your heart. Please see your primary care doctor within 1 week as well. Return to [facility] if - * your defibrillator fires * you experience chest pain or difficulty breathing * any other concerns Current Hospital Diet Patient's current hospital diet: Diabetes Type 2 Diet Discharge Diet Recommended Diet: AHA Diet (Heart Healthy), Diabetes Type 2 Diet Procedures Procedures Performed: interrogation of pacemaker/ICD showing multiple episodes of ventricular tachycardia Pending Studies Studies pending at discharge: yes List of pending studies: hemoglobin a1c Laboratory Results Hemoglobin A1c Test 10/28/17 05:22 Range/Units Medical Emergencies . Who to Call and When: Medical Emergencies: If at any time you feel your situation is an emergency, please call 911 immediately. . Non-Emergent Contact Non-Emergency issues call your: Primary Care Provider, [facility] Call Non-Emergent contact if: temperature is above 100.5, you have any medication questions . . "Provider Documentation" section prepared by Bola Marsh. . VTE Core Measure Inpt VTE Proph given/why not?: Enoxaparin (Lovenox)SQ
--- NOTE | 2017-10-28 17:16 | Discharge Summary ---
Discharge Summary Date of Service Oct 28, 2017. Discharge Summary Admission Date: Oct 26, 2017 at 17:23 Discharge Date: Oct 28, 2017 Discharge Disposition: Home Principal Diagnosis: ventricular tachycardia s/p AICD firing Problems/Secondary Diagnoses: 1) CAD s/p [place] 1988, CABG 1998 2) AICD/Pacer due to episodes of VF, VT 2001 - revised 2012 3) HTN 4) Hyperlipidemia 5) Type 2 DM Immunizations: Have You Had Influenza Vaccine: N/A History of Tetanus Vaccine?: Yes History of Pneumococcal: Yes History of Hepatitis B Vaccine: No Procedures: pacemaker/AICD interrogation Consultations: cardiology - Jaime Serra MD Medication Reconciliation New Medications: Amiodarone HCl (Amiodarone HCl) 200 Mg Tab 200 MG PO BID, #60 TAB 5 Refills for prevention of ventricular tachycardia Continued Medications: Ascorbic Acid (Ascorbic Acid) 1,000 Mg Tab 1000 MG PO DAILY Aspirin (Aspirin) 81 Mg Tab 81 MG PO DAILY Atorvastatin (Lipitor) 40 Mg Tab 40 MG PO DAILY, TAB Carvedilol (Coreg) 12.5 Mg Tab 12.5 MG PO BID, TAB Cholecalciferol (Vitamin D-3) 1,000 Unit Tab 1000 INTER.UNIT PO DAILY Cinnamon (Cinnamon) 500 Mg Cap 1000 MG PO DAILY Cyanocobalamin (Vitamin B12) 1,000 Mcg Tab 1000 MCG PO DAILY Fish Oil ([place]-3) 1 Ea Cap 2 CAP PO DAILY, CAP Glucosamine-Chondroitin (Glucosamine/Chondroitin) 1 Tab Tab 1 TAB PO DAILY Lisinopril (Zestril) 20 Mg Tab 20 MG PO DAILY, TAB Multivitamin (Multivitamin) Tab 1 TAB PO DAILY, TAB Sitagliptin-Metformin Hcl (Janumet) 1 Tab Tab 1 TAB PO BID Referrals At Discharge Follow up Referrals: Metaphysics Teacher Referral - Within 1-2 Weeks with Rojelio Mcnair M.D. Discharge Exam Physical Exam: General Appearance: WD/WN, no apparent distress ENT: pharynx normal Neck: no JVD Respiratory/Chest: lungs clear, no respiratory distress, no accessory muscle use Cardiovascular: regular rate, rhythm, no gallop, no murmur, normal peripheral pulses Abdomen / GI: normal bowel sounds, non tender, soft, no organomegaly Extremities: no pedal edema Neurologic/Psychiatric: alert, oriented x 3 Skin: no rash Hospital Course HISTORY OF PRESENT ILLNESS: 76 y/o male with history of CAD, HTN, Hyperlipidemia, DM II, VF/VT - defibrillator placed 2001 - who presented with an episode of lightheadedness followed by his defibrillator discharging. This prompted him to attend the ER. His defibrillator was interrogated and 7 runs of sustained VT were appreciated over the past week. Cardiology was alerted and gave instructions to perform amiodarone loading. The patient denied any CP, SOB, N/V, diaphoresis or fevers. HOSPITAL COURSE: Following amiodarone loading the patient demonstrated fewer runs of ventricular tachycardia on monitoring. He never had symptoms from the nonsustained ventricular tachycardia that was seen on telemetry. His defibrillator never fired while hospitalized. He was seen in consult by Dr. Chele Serra who recommended 200mg twice daily of amiodarone at discharge. Serial troponins were negative while hospitalized. He remained hemodynamically stable his entire course. He had no symptoms/signs of acute CHF during his brief stay. All other medical problems remained stable while here. Total Time Spent: Less than 30 minutes This includes examination of the patient, discharge planning, medication reconciliation, and communication with other providers. Discharge Instructions Please refer to the electronic Patient Visit Report (Discharge Instructions) for additional information. Follow-Up 1. see Dr. Farrar, PCP, within [address] Mcnair, cardiology, within 2 weeks Additional Copies To Lalit Carroll MD; Rojelio Mcnair M.D.; Ritu Farrar MD
[2017-10-29 06:36] LABS: HEMOGLOBIN A1C 8.2 % (4.5-5.6)
== END 2017-10-28 13:15 | disposition home or self-care (01) ==
LOC: C.EDB 15:03 → C.2T 17:23 → ENRESERV 18:34
PROVIDERS: ADMIT Internal Medicine; ATTEND Internal Medicine
DX: I47.2 Ventricular tachycardia (principal); I25.10 Atherosclerotic heart disease of native coronary artery without angina pectoris; I10 Essential (primary) hypertension; E78.5 Hyperlipidemia, unspecified; E11.9 Type 2 diabetes mellitus without complications; I25.5 Ischemic cardiomyopathy; E78.00 Pure hypercholesterolemia, unspecified; F32.9 Major depressive disorder, single episode, unspecified; G47.33 Obstructive sleep apnea (adult) (pediatric); N40.0 Benign prostatic hyperplasia without lower urinary tract symptoms; I25.2 Old myocardial infarction; Z95.1 Presence of aortocoronary bypass graft; Z95.810 Presence of automatic (implantable) cardiac defibrillator; Z79.82 Long term (current) use of aspirin; Z87.442 Personal history of urinary calculi; Z79.01 Long term (current) use of anticoagulants; Z87.891 Personal history of nicotine dependence; Z82.49 Family history of ischemic heart disease and other diseases of the circulatory system

== ENCOUNTER → 2017-11-09 | Outpatient (CLI) | payer OTHER, BC ==
[~2017-11-09] MED LIST changes: +CARV12.52 PO; -CARV6.252 PO; +CINN1CAP2 PO; +CRD200 PO; +GLUC750T18 PO; -GLUCTAB7 PO; +LISI-725 PO; -LISI-729 PO; +MULT-506 PO; -SERT-234 PO
== END | disposition home or self-care (01) ==
LOC: C.LAB1850 09:11
PROVIDERS: ATTEND Family Medicine
DX: E11.9 Type 2 diabetes mellitus without complications (principal)

== ENCOUNTER → 2017-11-27 | Outpatient (CLI) | payer OTHER, BC ==
[~2017-11-27] MED LIST changes: +ACET-1256 PO; +AMIO200T4 PO; +CHOL2000 PO; +KRIL1000 PO
[2017-11-27 12:37] LABS: ALBUMIN 3.8 gm/dl (3.4-5.0); TOTAL PROTEIN 7.2 gm/dl (6.4-8.2)
== END | disposition home or self-care (01) ==
LOC: C.LAB 10:37
PROVIDERS: ATTEND Internal Medicine Cardiovascular Disease

== ENCOUNTER 2017-12-11 05:16 | Inpatient (IN) | payer OTHER, BC ==
[2017-11-27 09:53] VITALS: BMI 29.0
--- NOTE | 2017-11-27 10:08 | PAT Medication Instructions ---
Service Date Nov 27, 2017. Current Home Medication List Acetaminophen (Tylenol), 500 MG PO PRN Amiodarone Hcl (Cordarone), 200 MG PO QAM Aspirin (Aspirin), 81 MG PO QAM Atorvastatin (Lipitor), 40 MG PO QPM Carvedilol (Coreg), 12.5 MG PO BID Cholecalciferol (Vitamin D3), 1 CAP PO NOON Cinnamon (Cinnamon), 1,000 MG PO NOON Cyanocobalamin (Vitamin B12), 500 MCG PO BID Glucosamine-Chondroitin (Glucosamine/Chondroitin), 1 TAB PO QPM Krill Oil (Krill Oil), 1 TAB PO NOON Lisinopril (Zestril), 20 MG PO QAM Multivitamin (Multivitamin), 1 TAB PO TIDM Sitagliptin-Metformin Hcl (Janumet), 1 TAB PO BID Medication Instructions For Your Scheduled Surgery - Hold the following medications 2 weeks prior to surgery: Krill Oil (Krill Oil), 1 TAB PO NOON Glucosamine-Chondroitin (Glucosamine/Chondroitin), 1 TAB PO QPM Cinnamon (Cinnamon), 1,000 MG PO NOON - Check with surgeon and certified wellness program manager for instructions: Aspirin (Aspirin), 81 MG PO QAM - Hold the following medications the morning of surgery: Cholecalciferol (Vitamin D3), 1 CAP PO NOON Cyanocobalamin (Vitamin B12), 500 MCG PO BID Lisinopril (Zestril), 20 MG PO QAM Multivitamin (Multivitamin), 1 TAB PO TIDM Sitagliptin-Metformin Hcl (Janumet), 1 TAB PO BID - Take the following medications the morning of surgery with a sip of water: Carvedilol (Coreg), 12.5 MG PO BID Acetaminophen (Tylenol), 500 MG PO PRN (okay to take up to 4 hours prior to surgery if needed) Amiodarone Hcl (Cordarone), 200 MG PO QAM - Take the following medications as scheduled the night before surgery: Sitagliptin-Metformin Hcl (Janumet), 1 TAB PO BID Multivitamin (Multivitamin), 1 TAB PO TIDM Cyanocobalamin (Vitamin B12), 500 MCG PO BID Carvedilol (Coreg), 12.5 MG PO BID Atorvastatin (Lipitor), 40 MG PO QPM Acetaminophen (Tylenol), 500 MG PO PRN (if needed) If you have any questions please call us at [phone] or [phone] or [phone]
[2017-11-27 11:21] LABS: BASO % 0.2 %; BASO ABS # 0.01 K/uL (0-0.2); EOS % 1.5 %; HEMATOCRIT 37.6 % (42-52); HEMOGLOBIN 13.2 g/dL (14.0-18.0); IG# 0.02 K/uL (0.00-0.02); LYMPH ABS # 1.32 K/uL (1.2-3.4); MEAN CELL VOLUME 93.1 fL (80-100); MEAN CORPUSCULAR HEMOGLOBIN 32.7 pg (25-34); MEAN CORPUSCULAR HGB CONC 35.1 g/dl (32-36); MEAN PLATELET VOLUME 12.6 fL (7.4-10.4); MONO % 10.3 %; MONO ABS # 0.68 K/uL (0.11-0.59); NEUT % 67.7 %; NEUT ABS # 4.46 K/uL (1.4-6.5); PLATELET COUNT 162 K/uL (130-400); RED CELL DISTRIBUTION WIDTH CV 14.1 % (11.5-14.5); RED CELL DISTRIBUTION WIDTH SD 47.6 fL (36.4-46.3); WHITE BLOOD COUNT 6.59 K/uL (4.8-10.8)
[2017-11-27 12:23] LABS: ALBUMIN 3.8 gm/dl (3.4-5.0); CALCIUM 9.6 mg/dl (8.5-10.1); CREATININE 1.52 mg/dl (0.60-1.40); POTASSIUM 4.9 mmol/L (3.5-5.1)
[2017-11-27 12:26] LABS: TOTAL PROTEIN 7.2 gm/dl (6.4-8.2)
[2017-12-11] VITALS (13 sets, daily range): BP systolic 108–130; BP diastolic 55–70; PULSE 55–62; TEMP 36.4–36.8; O2SAT 97–100; Ht 188 cm; Wt 99.8 kg
[~2017-12-11] VITALS: Ht 188 cm; Wt 99.8 kg
[~2017-12-11 05:16] MED LIST changes: -ASCO100061 PO; -CHOL1TAB2 PO; -CRD200 PO; -OMEG10007 PO
[2017-12-11] MEDS ORDERED: CEFAZOLIN 3000MG IV PUSH 22.5 ML IV SCH (06:00)
[2017-12-11] MEDS ORDERED: LACTATED RINGER'S 1000ML 1,000 ML IV SCH (06:00)
[2017-12-11] MEDS ORDERED: PROPOFOL IV EMULSION 10 MG/ML 20 ML VIAL IV ONE (06:32)
[2017-12-11] MEDS ORDERED: FENTANYL CITRATE INJ 50 MCG/1 ML 2 ML VIAL ONE (06:32)
[2017-12-11] MEDS ORDERED: MIDAZOLAM HCL 1 MG/ML 2ML VIAL ONE (06:32)
[2017-12-11] MEDS ORDERED: DEXAMETHASONE SOD INJ 4 MG/ML VIAL ONE (06:32)
[2017-12-11] MEDS ORDERED: ONDANSETRON INJ 2 MG/ML 2 ML VIAL ONE (06:32)
[2017-12-11] MEDS ORDERED: LIDOCAINE HCL 2% 2 ML VIAL (20MG/ML) ONE (06:32)
[2017-12-11] MEDS ORDERED: ROCURONIUM BROMIDE 10 MG/ML 5 ML VIAL IV ONE (06:32)
[2017-12-11] MEDS ORDERED: NEOSTIGMINE METHYLSULFATE 5 MG/5 ML SYR ONE (06:32)
[2017-12-11] MEDS ORDERED: GLYCOPYRROLATE INJ 0.2 MG/ML VIAL ONE (06:32)
[2017-12-11] MEDS ORDERED: SUCCINYLCHOLINE CHLORIDE 20 MG/ML 10 ML VIAL IV ONE (06:32)
[2017-12-11] MEDS ORDERED: Cysto-Conray II 17.2% 250ML BOTTLE ONE (07:04)
--- NOTE | 2017-12-11 07:06 | History & Physical Bridge Note ---
H&P Re-Evaluation Bridge Note: I have examined the patient, reviewed the History & Physical and in the interval since the performance of the History & Physical I have noted the following changes of clinical significance: No changes noted
[2017-12-11] MEDS ORDERED: EpHEDrine SULFATE INJ 50 MG/ML AMP IV PRN (07:30)
[2017-12-11] MEDS ORDERED: ONDANSETRON INJ 2 MG/ML 2 ML VIAL IV PRN ×2 (07:30→10:45)
[2017-12-11] MEDS ORDERED: FENTANYL CITRATE INJ 50 MCG/1 ML 2 ML VIAL IV PRN (07:30)
[2017-12-11] MEDS ORDERED: ATROPINE SULFATE 0.1 MG/ML 5ML SYR IV PRN (07:30)
[2017-12-11] MEDS ORDERED: OXYC1TAB3 PO (07:40)
[2017-12-11] MEDS ORDERED: SULF800T23 PO (07:40)
--- NOTE | 2017-12-11 07:43 | Discharge Instructions ---
Discharge Instructions Date of Service Dec 11, 2017. Admission Reason for Admission: Nephrolithiasis Discharge Discharge Diagnosis / Problem: Nephrolithiasis Discharge Goals Goal(s): Decrease discomfort, Improve function Activity Recommendations Activity Limitations: resume your previous activity Lifting Limitations: no more than 25 pounds, gradually increase as tolerated Exercise/Sports Limitations: rest today, gradually increase as tolerated Shower/Bathe: no limitations Driving or Machine Use: Resume driving in [address] while taking narcotics. . Instructions / Follow-Up Instructions / Follow-Up May have flank pain or bruising. Okay to increase activity slowly. May have blood in urine. May have pelvic discomfort. May have pain with voiding. Call if any fevers or chills. Monitor for drainage issues. You may resume taking your Aspirin and Krill oil in 1 week. Current Hospital Diet Patient's current hospital diet: Discharge Diet Recommended Diet: Diabetes Type 2 Diet Procedures Procedures Performed: PCNL Pending Studies Studies pending at discharge: yes List of pending studies: stone analysis Laboratory Results Hemoglobin A1c Test 11/09/17 09:17 Range/Units Estimated Average Glucose 183 mg/dl Hemoglobin A1c 8.0 H 4.5-5.6 % Medical Emergencies . Who to Call and When: Medical Emergencies: If at any time you feel your situation is an emergency, please call 911 immediately. . Non-Emergent Contact Non-Emergency issues call your: Primary Care Provider, Truck Repair Supervisor, Urologist Call Non-Emergent contact if: you have a fever, temperature is above 101, temperature is above 101.5, your pain is not controlled, your pain is worsening , your pain is unusual for you, your pain is concerning you, wound has increased drainage, wound has increased redness, wound has increased pain, you have any medication questions . . "Provider Documentation" section prepared by Miles Henderson. . [place] Drug Monitoring Program Search Results: patient reviewed within database, no issues identified
[2017-12-11] MEDS ORDERED: LIDOCAINE/EPINEPHRINE 1% 20 ML VIAL ONE (07:51)
[2017-12-11] MEDS ORDERED: BUPIVACAINE/EPINEPHRINE 0.5% MPF 1:200,000 30 ML VIAL ONE (07:53)
[2017-12-11] MEDS ORDERED: EpHEDrine SULFATE 50MG/5ML SYR ONE (08:23)
[2017-12-11] MEDS ORDERED: GELATIN SPONGE 12-7MM ONE (09:58)
--- NOTE | 2017-12-11 10:37 | [facility] Operative Report ---
Operative Report Operative Date Dec 11, 2017. Pre-Operative Diagnosis Large Left Renal Calculi, UPJ Post-Operative Diagnosis Same Procedure(s) Performed Left percutaneous nephroscopy with lithoclast lithlopaxy and dilation of nephrolithotomy and injection for nephrostogram and stent placement with nephrostomy tube exchange. Surgeon Santiago Corncob Pipes Assembler Surgeon(s) Wale Estimated Blood Loss Minimal Findings Large Left renal pelvis stone Specimens Stone fragments. Drains 10 Fr Nephrostomy Tube. 6 Fr Multilength Anesthesia Type General Complication(s) none Disposition Recovery Room / PACU Indications Large left stone with hydronephrosis 2.6 x 2.3 cm with addition 1 cm and 0.9 cm stones. Total stone volume > 5 cm. Risks and benefits discussed at length. Description of Procedure Patient was consented and brought back to the operating room. Patient was placed under anesthesia in the supine position. At this point, a catheter was placed and the patient was moved to the prone position. Patient was prepped and draped in the regular sterile fashion. A time out was completed. With timeout completed, a nephrostogram was completed through the tube, the nephrostomy tube was unsecured, and a wire was placed. This wire was manipulated and left into the ureter. Local anesthetic was placed into the skin. The nephrostomy tube was removed and an incision was made into the skin and subcutaneous tissues. The 8-10 Fr Dilator was taken over the wire and dilated the tract. The 10 fr sheath was left in place and a second wire was placed and secured once the sheath was removed. The balloon dilator was selected and the tissues were dilated to 12 mmHg. This was elevated for for adequate dilation and the nephrotomy sheath was placed over the partially deflated balloon. This was easily placed and advanced. The balloon was removed and the wire remained. The nephroscope was selected and taken into the pelvis.. The large stone was identified and the lithoclast device was selected. The stone was pulverized to fragments with the ultrasonic and pneumatic settings. Fragments were irrigated. The large stone was completely destroyed. Larger fragments were grasped and removed. The remaining pelvis was examined. Further stones were identified and pulverized with fragments removed. The lower pole was difficult to access and a stone in the lower pole could not be accessed. A flexible scope was selected an another attempt at accessing the 1 cm lower pole stone was attempted. This was unable to be accessed without considerable torquing of the sheath. The ureter and UPJ were inspected and stones were grasped and removed. The entire pelvis was found to be clear of stones except for the lower pole stone which could not be accessed. No additional stone fragments were discovered. The UPJ was examined and found to be clear of fragments. At this point, a 6Fr Multilength stent was placed into the bladder over the wire and curled into the renal pelvis. The Nephroscope was removed as well as the sheath and pressure was held for 5 minutes. This dislodged the stent and a wire had to be replaced and the stent readjusted. It was then replaced and found to be in better position. At this point, a second wire was placed. Surgical foam was placed into the subcutaneous tissues for assistance with hemostasis. The 10 Fr Nephrostomy tube was placed and curled into the renal pelvis. A final nephrostogram was completed and found to be in good position. The stent also remained in good position. The skin was cleaned. A 2-0 Vicryl suture was used to close subcutaneous tissues. A 2-0 Nylon was used to secure the tube in place. The Patient was cleaned and the nephrostomy tube bandaged. The patient was cleaned, aroused from anesthesia, and transferred to the pacu in stable condition having tolerated the procedure well with no complications. I was present and participated in all aspects of the procedure. I attest to the content of the Intraoperative Record and any orders documented therein. Any exceptions are noted below.
[2017-12-11] MEDS ORDERED: OXYBUTYNIN CHLORIDE 5 MG TAB PO PRN (10:45)
[2017-12-11] MEDS ORDERED: OXYCODONE/ACETAMINOPHEN 7.5-325 TAB PO PRN (10:45)
[2017-12-11] MEDS ORDERED: HYDROmorphone INJ 1 MG/ML SYR IV PRN (10:45)
[2017-12-11 11:19] LABS: HEMOGLOBIN 12.4 g/dL (14.0-18.0); MEAN CORPUSCULAR HEMOGLOBIN 32.4 pg (25-34); MEAN PLATELET VOLUME 11.6 fL (7.4-10.4); PLATELET COUNT 149 K/uL (130-400); RED CELL DISTRIBUTION WIDTH SD 47.9 fL (36.4-46.3); WHITE BLOOD COUNT 8.33 K/uL (4.8-10.8)
--- NOTE | 2017-12-11 11:19 | DIAGNOSTIC IMAGING REPORT ---
RETROGRADE INCLUDES KUB CLINICAL HISTORY: 77 years-old Male presenting with PERCUTANEOUS NEPHROLIHOTOMY. TECHNIQUE: 4 fluoroscopic spot image(s) obtained as part of an intraoperative procedure. COMPARISON: CT from 10/03/2017. FINDINGS/IMPRESSION: A nephroureterostomy tube was in place on the left with multiple prominent calculi evident in the left renal collecting system. Subsequently, a guidewire and scope were introduced into the collecting system. The dominant calculus was removed. Finally, a percutaneous left nephrostomy tube was placed. Please see surgical report for further details. Fluoroscopy dosage (mGy): 177.62. Fluoroscopy time: 599 seconds. Number of fluoroscopic spot images: 4. Electronically signed by: Gavin Torres M.D. 12/11/2017 11:18 AM Dictated Date/Time: 12/11/2017 11:16 AM
[2017-12-11 11:21] LABS: MEAN CORPUSCULAR HGB CONC 34.4 g/dl (32-36)
--- NOTE | 2017-12-11 11:34 | Anesthesiology Progress Note ---
Anesthesia Post Op Note Date & Time Dec 11, 2017 at 11:34 Vital Signs Pain Intensity: 0 Vital Signs Past 12 Hours Date Time Temp Pulse Resp B/P (MAP) Pulse Ox O2 Delivery O2 Flow Rate FiO2 12/11/17 11:22 36.8 100 Nasal Cannula 2 12/11/17 11:17 56 16 100 12/11/17 11:17 57 16 12/11/17 11:16 119/63 12/11/17 11:12 56 13 100 12/11/17 11:12 56 13 12/11/17 11:11 120/62 12/11/17 11:10 56 14 100 12/11/17 11:10 56 14 12/11/17 11:06 113/59 12/11/17 11:05 55 12 100 12/11/17 11:05 55 12 12/11/17 11:01 117/59 12/11/17 11:00 55 16 12/11/17 11:00 55 16 100 12/11/17 10:59 56 13 100 12/11/17 10:59 56 13 12/11/17 10:57 125/60 12/11/17 10:54 56 16 12/11/17 10:54 56 16 100 12/11/17 10:52 117/66 12/11/17 10:49 59 14 12/11/17 10:49 63 14 100 12/11/17 10:46 116/62 12/11/17 10:44 55 24 12/11/17 10:44 36.3 53 20 116/62 100 Oxymask 10 12/11/17 10:44 55 24 100 12/11/17 05:55 36.4 57 18 108/55 (72) 100 Room Air Notes Mental Status: alert / awake / arousable, participated in evaluation Pt Amnestic to Procedure: Yes Nausea / Vomiting: adequately controlled Pain: adequately controlled Airway Patency, RR, SpO2: stable & adequate BP & HR: stable & adequate Hydration State: stable & adequate Anesthetic Complications: no major complications apparent
[2017-12-11 11:38] LABS: CALCIUM 8.1 mg/dl (8.5-10.1); CREATININE 1.68 mg/dl (0.60-1.40); POTASSIUM 4.6 mmol/L (3.5-5.1)
[2017-12-11] MEDS: LACTATED RINGER'S 1000ML 1,000 ML IV SCH ×2 (13:00→21:31)
[2017-12-11] MEDS: ACETAMINOPHEN 500 MG TAB PO SCH ×2 (17:57→23:53)
[2017-12-11] MEDS: CIPROFLOXACIN / D5W 200 MG in PREMIXED IN D5W 100 ML IV SCH (17:57)
[2017-12-11] MEDS: MULTIVITAMIN TAB PO SCH (18:33)
[2017-12-11] MEDS: DOCUSATE SODIUM 100 MG CAP PO SCH (20:23)
[2017-12-11] MEDS: CARVEDILOL 12.5 MG TAB PO SCH (20:23)
[2017-12-11] MEDS: CYANOCOBALAMIN 500 MCG TAB (VIT B-12) PO SCH (20:23)
[2017-12-11] MEDS ORDERED: ATORVASTATIN 40 MG TAB PO SCH (21:00)
[2017-12-12 03:00] VITALS: BP 125/66; PULSE 59; TEMP 36.7; O2SAT 98
[2017-12-12] MEDS: CIPROFLOXACIN / D5W 200 MG in PREMIXED IN D5W 100 ML IV SCH (04:34)
[2017-12-12] MEDS: ACETAMINOPHEN 500 MG TAB PO SCH ×2 (05:38→11:20)
--- NOTE | 2017-12-12 07:14 | Clinical Documentation Query ---
CLINICAL DOCUMENTATION QUERY QUERY 1 OF 2 77 yo male admitted for left renal calculi. Lab results show a creatinine level of 1.68. Baseline as of 10/27/17 was 1.26. In your clinical opinion is this patient being managed for: ( X) Acute kidney failure ( ) Not Agree ( ) Other explanation of clinical findings (Please Explain) ( ) Unable to determine (Please Define) ( X ) Need to Discuss The medical record reflects the following clinical findings, treatment, and risk factors. Clinical Indicators: As above Treatment: IV hydration, I&O, serial PRPs Risk Factors: Age, CKD, HTN, s/p surgical intervention QUERY 2 OF 2 GFR ranges 38.9 to 55.4 over a one month period. In your clinical opinion is this patient being managed for: ( X ) Chronic kidney disease, stage 3 ( ) Not Agree ( ) Other explanation of clinical findings (Please Explain) ( ) Unable to determine (Please Define) ( X ) Need to Discuss The medical record reflects the following clinical findings, treatment, and risk factors. Clinical Indicators: As above Treatment: IV hydration, I&O, serial PRPs Risk Factors: Age, HTN, s/p surgical intervention Please clarify and document your clinical opinion in the progress notes and discharge summary. Terms such as "probable", "suspected", "likely", "questionable", "possible", or "still to be ruled out" are acceptable. IF IN AGREEMENT, YOU MUST DOCUMENT ABOVE DIAGNOSTIC STATEMENT IN DAILY PROGRESS NOTES AND DISCHARGE SUMMARY. This document is not part of the patient's record. Thank You, Latanya Capone RN [phone] Patient likely has SHARON on CKD3 due to obstructing staghorn stone. Had major procedure to treat stone which likely exacerbated symptoms temporarily due to intervention. Will adjust note to show this.
[2017-12-12 07:42] LABS: BASO % 0.1 %; BASO ABS # 0.01 K/uL (0-0.2); EOS ABS # 0.09 K/uL (0-0.5); HEMATOCRIT 35.5 % (42-52); HEMOGLOBIN 12.2 g/dL (14.0-18.0); IG# 0.03 K/uL (0.00-0.02); LYMPH % 16.2 %; LYMPH ABS # 1.41 K/uL (1.2-3.4); MEAN CELL VOLUME 94.9 fL (80-100); MEAN CORPUSCULAR HEMOGLOBIN 32.6 pg (25-34); MEAN CORPUSCULAR HGB CONC 34.4 g/dl (32-36); MEAN PLATELET VOLUME 11.8 fL (7.4-10.4); MONO % 16.7 %; MONO ABS # 1.46 K/uL (0.11-0.59); NEUT % 65.7 %; NEUT ABS # 5.72 K/uL (1.4-6.5); PLATELET COUNT 153 K/uL (130-400); RED CELL DISTRIBUTION WIDTH CV 14.2 % (11.5-14.5); RED CELL DISTRIBUTION WIDTH SD 48.8 fL (36.4-46.3); WHITE BLOOD COUNT 8.72 K/uL (4.8-10.8)
[2017-12-12 07:47] VITALS: BP 112/66; PULSE 57; TEMP 36.5; O2SAT 99
[2017-12-12] MEDS: LACTATED RINGER'S 1000ML 1,000 ML IV SCH (07:57)
[2017-12-12] MEDS: CARVEDILOL 12.5 MG TAB PO SCH (07:58)
[2017-12-12] MEDS: MULTIVITAMIN TAB PO SCH ×2 (07:59→11:19)
[2017-12-12] MEDS: CYANOCOBALAMIN 500 MCG TAB (VIT B-12) PO SCH (07:59)
[2017-12-12] MEDS: DOCUSATE SODIUM 100 MG CAP PO SCH (08:00)
[2017-12-12 08:07] LABS: CALCIUM 8.6 mg/dl (8.5-10.1); CREATININE 1.92 mg/dl (0.60-1.40); POTASSIUM 4.1 mmol/L (3.5-5.1)
--- NOTE | 2017-12-12 08:43 | DIAGNOSTIC IMAGING REPORT ---
ABD/PELVIS NO IV OR ORAL CONT CLINICAL HISTORY: 77 years-old Male presenting with s/p PCNL with stent placement and PCN placement . TECHNIQUE: Multidetector CT of the abdomen and pelvis was performed without the use of intravenous contrast. IV contrast: None. A dose lowering technique was used consistent with the principles of ALARA (as low as reasonably achievable). COMPARISON: 09/23/2017. CT DOSE (mGy.cm): The estimated cumulative dose is 1075.48 mGycm. FINDINGS: Fur Buyer topogram: Left percutaneous nephrostomy and left ureteral stent noted. Implanted cardiac defibrillator lead to the right ventricular apex. Median sternotomy wires with bypass graft rings noted. Lung bases: Minimal basilar opacities, likely atelectasis. Mosaic attenuation at the lung bases could suggest small airways disease. Normal heart size. Coronary artery, aortic valve, and minimal mitral annular calcification. No pericardial or pleural effusion. Liver: Normal morphology. Normal density. Biliary: No gross biliary ductal dilatation allowing for noncontrast technique. Gallbladder sludge or minimally radiodense gallstones may be present. Pancreas: Mild parenchymal atrophy. Coarse calcifications within the pancreatic head parenchyma may suggest a history of chronic pancreatitis. Spleen: Normal noncontrast appearance. Adrenal glands: Normal noncontrast appearance. Kidneys and ureters: A left percutaneous no fluoroscopy tube terminates in a lower pole calyx. A separate left ureteral stent is in place. High density material in the left renal collecting system likely suggest prior contrast administration. The previously noted large left renal calculus has been fragmented and much of it removed. Several nonobstructing renal calculi evident at the lower pole of the left kidney measuring up to 6 mm. Mild pelvocaliectasis on the left. Minimal fat stranding in the left renal pelvis and along the proximal left ureter, possibly in response to the presence of the stents. Minimal pelvocaliectasis on the right without convincing evidence of obstruction. Right ureter normal. No ureteral calculi. Bladder: Bladder decompressed with a Mcneli catheter. Gas within the bladder likely related to the presence of the Mcneil catheter. Pelvic organs: Prostate and seminal vesicles normal. Bowel: Few scattered diverticula in the sigmoid colon. The appendix is normal. No bowel obstruction. Peritoneal cavity: No free fluid or intraperitoneal gas. Lymph nodes: No gross lymphadenopathy allowing for noncontrast technique. Vasculature: Atherosclerosis of the normal caliber abdominal aorta. Abdominal wall: Small fat-containing right inguinal hernia. Nonspecific mild body wall edema. Musculoskeletal: Degenerative changes of the spine. Old fracture deformities of several posterior left ribs. Degenerative changes of the sacroiliac joints. IMPRESSION: 1. Left percutaneous nephrostomy and left ureteral stents in place. No left hydronephrosis. Mild prominence of the collecting system on the left likely indicates a flaccid system. 2. Interval fragmentation and removal of the majority of the previously noted large left renal calculus. Persistent nonobstructing lower pole left renal calculi. 3. Gallbladder sludge or minimally radiodense gallstones suggested. 4. Possible history of chronic pancreatitis. Electronically signed by: Gavin Torres M.D. 12/12/2017 8:41 AM Dictated Date/Time: 12/12/2017 6:59 AM
[2017-12-12] MEDS ORDERED: LISINOPRIL 20 MG TAB PO SCH (09:00)
[2017-12-12] MEDS ORDERED: AMIODARONE 200 MG TAB PO SCH (09:00)
--- NOTE | 2017-12-12 10:03 | Progress Note ---
Subjective Date of Service: Dec 12, 2017. Subjective Pt evaluation today including: conversation w/ patient, chart review, lab review 77 yo male s/p left PCNL. Pt denies pain this morning. Feels well. Mcneil catheter removed earlier this morning. Pt has not yet voided. PCN draining light martín colored urine. H&H stable. Cr slightly increased to 1.92 this morning. Problem List Medical Problems: (1) Prostatitis Status: Acute (2) Urinary tract infection Status: Acute (3) Ventricular tachycardia Status: Acute Review of Systems Constitutional: No fever, No chills Respiratory: No shortness of breath Cardiac: No chest pain Abdomen: No pain, No nausea, No vomiting Male : + hematuria Heme: No abnormal bleeding/bruising Objective Vital Signs Date Time Temp Pulse Resp B/P (MAP) Pulse Ox O2 Delivery O2 Flow Rate FiO2 12/12/17 08:00 Room Air 12/12/17 07:47 36.5 57 20 112/66 (81) 99 12/12/17 04:00 Room Air 12/12/17 03:00 36.7 59 16 125/66 (85) 98 Room Air 12/12/17 00:00 Room Air 12/11/17 23:05 36.6 61 16 112/65 (81) 97 BiPAP 12/11/17 20:00 Room Air 12/11/17 19:00 36.4 62 16 130/64 (86) 98 Room Air 12/11/17 15:32 36.4 59 18 116/64 (81) 100 Room Air 12/11/17 15:09 100 Room Air 12/11/17 15:00 36.6 55 18 118/62 (80) 100 12/11/17 14:00 36.7 62 18 121/64 (83) 100 Room Air 12/11/17 13:10 100 Room Air 12/11/17 13:07 55 18 116/70 (85) 100 Room Air 12/11/17 13:00 36.6 57 18 110/60 (77) 100 Room Air 12/11/17 13:00 36.6 60 18 110/62 (78) 100 Room Air 12/11/17 12:57 36.8 59 18 118/66 12/11/17 12:30 36.6 59 18 118/66 (83) 100 Room Air 12/11/17 12:00 36.8 59 16 118/66 (83) 100 Room Air 12/11/17 12:00 100 Room Air 12/11/17 12:00 36.8 57 16 119/63 (81) 100 Room Air 12/11/17 11:33 57 13 12/11/17 11:33 57 13 100 12/11/17 11:31 112/61 12/11/17 11:28 57 15 12/11/17 11:28 57 15 100 12/11/17 11:26 112/62 12/11/17 11:23 57 11 100 12/11/17 11:23 57 11 12/11/17 11:22 36.8 100 Nasal Cannula 2 12/11/17 11:21 120/64 12/11/17 11:18 57 11 12/11/17 11:18 57 11 100 12/11/17 11:17 56 16 100 12/11/17 11:17 57 16 12/11/17 11:16 119/63 12/11/17 11:12 56 13 100 12/11/17 11:12 56 13 12/11/17 11:11 120/62 12/11/17 11:10 56 14 100 12/11/17 11:10 56 14 12/11/17 11:06 113/59 12/11/17 11:05 55 12 100 12/11/17 11:05 55 12 12/11/17 11:01 117/59 12/11/17 11:00 55 16 12/11/17 11:00 55 16 100 12/11/17 10:59 56 13 100 12/11/17 10:59 56 13 12/11/17 10:57 125/60 12/11/17 10:54 56 16 12/11/17 10:54 56 16 100 12/11/17 10:52 117/66 12/11/17 10:49 59 14 12/11/17 10:49 63 14 100 12/11/17 10:46 116/62 12/11/17 10:44 55 24 12/11/17 10:44 36.3 53 20 116/62 100 Oxymask 10 12/11/17 10:44 55 24 100 Physical Exam General Appearance: no apparent distress Eyes: normal inspection ENT: hearing grossly normal Neck: no JVD Respiratory/Chest: no respiratory distress, no accessory muscle use Cardiovascular: no JVD Extremities: normal inspection Neurologic/Psychiatric: alert, normal mood/affect, oriented x 3 Skin: normal color Laboratory Results Last 24 Hours Test 12/11/17 11:05 12/11/17 11:07 12/11/17 16:12 12/11/17 20:30 Bedside Glucose 164 mg/dl 211 mg/dl 202 mg/dl White Blood Count 8.33 K/uL Red Blood Count 3.83 M/uL Hemoglobin 12.4 g/dL Hematocrit 36.0 % Mean Corpuscular Volume 94.0 fL Mean Corpuscular Hemoglobin 32.4 pg Mean Corpuscular Hemoglobin Concent 34.4 g/dl RDW Standard Deviation 47.9 fL RDW Coefficient of Variation 14.0 % Platelet Count 149 K/uL Mean Platelet Volume 11.6 fL Sodium Level 137 mmol/L Potassium Level 4.6 mmol/L Chloride Level 106 mmol/L Carbon Dioxide Level 23 mmol/L Anion Gap 8.0 mmol/L Blood Urea Nitrogen 25 mg/dl Creatinine 1.68 mg/dl Est Creatinine Clear Calc Drug Dose 46.6 ml/min Estimated GFR () 45.1 Estimated GFR (Non- 38.9 BUN/Creatinine Ratio 14.7 Random Glucose 181 mg/dl Calcium Level 8.1 mg/dl Test 12/12/17 06:25 12/12/17 07:27 Bedside Glucose 131 mg/dl White Blood Count 8.72 K/uL Red Blood Count 3.74 M/uL Hemoglobin 12.2 g/dL Hematocrit 35.5 % Mean Corpuscular Volume 94.9 fL Mean Corpuscular Hemoglobin 32.6 pg Mean Corpuscular Hemoglobin Concent 34.4 g/dl Platelet Count 153 K/uL Mean Platelet Volume 11.8 fL Neutrophils (%) (Auto) 65.7 % Lymphocytes (%) (Auto) 16.2 % Monocytes (%) (Auto) 16.7 % Eosinophils (%) (Auto) 1.0 % Basophils (%) (Auto) 0.1 % Neutrophils # (Auto) 5.72 K/uL Lymphocytes # (Auto) 1.41 K/uL Monocytes # (Auto) 1.46 K/uL Eosinophils # (Auto) 0.09 K/uL Basophils # (Auto) 0.01 K/uL RDW Standard Deviation 48.8 fL RDW Coefficient of Variation 14.2 % Immature Granulocyte % (Auto) 0.3 % Immature Granulocyte # (Auto) 0.03 K/uL Sodium Level 137 mmol/L Potassium Level 4.1 mmol/L Chloride Level 105 mmol/L Carbon Dioxide Level 26 mmol/L Anion Gap 6.0 mmol/L Blood Urea Nitrogen 21 mg/dl Creatinine 1.92 mg/dl Est Creatinine Clear Calc Drug Dose 41.3 ml/min Estimated GFR () 38.3 Estimated GFR (Non- 33.1 BUN/Creatinine Ratio 10.9 Random Glucose 129 mg/dl Calcium Level 8.6 mg/dl Assessment and Plan POD #1 s/p left PCNL AFVSS. Pt doing well post-op. Trial of void this AM. Advance diet as tolerated. Encourage use of IS. Encourage ambulation to hallway. Likely d/c home after lunch if tolerating PO, ambulating without difficulty, and voiding. Will plan to d/c PCN tube next week as an outpatient. Discharge planning: home
[2017-12-12] MEDS ORDERED: SULF800T23 PO ×3 (10:11→10:23)
[2017-12-12 10:59] VITALS: BP 112/69; PULSE 60; TEMP 36.6; O2SAT 100
[2017-12-12] MEDS ORDERED: CHOLECALCIFEROL 1000 INTER.UNIT TAB PO SCH (12:00)
--- NOTE | 2017-12-12 12:59 | Anesthesiology Progress Note ---
Anesthesia Post Op Note Date & Time Dec 12, 2017 at 12:58 Vital Signs Pain Intensity: 0.0 Vital Signs Past 12 Hours Date Time Temp Pulse Resp B/P (MAP) Pulse Ox O2 Delivery O2 Flow Rate FiO2 12/12/17 11:47 Room Air 12/12/17 10:59 36.6 60 20 112/69 (83) 100 3.0 12/12/17 08:00 Room Air 12/12/17 07:47 36.5 57 20 112/66 (81) 99 12/12/17 04:00 Room Air 12/12/17 03:00 36.7 59 16 125/66 (85) 98 Room Air Notes Mental Status: alert / awake / arousable, participated in evaluation Pt Amnestic to Procedure: Yes Nausea / Vomiting: adequately controlled Pain: adequately controlled Airway Patency, RR, SpO2: stable & adequate BP & HR: stable & adequate Hydration State: stable & adequate Anesthetic Complications: no major complications apparent
[2017-12-12 13:42] VITALS: BP 112/69; PULSE 60; TEMP 36.6; O2SAT 100
--- NOTE | 2017-12-12 15:43 | Discharge Summary ---
Discharge Summary Date of Service Dec 12, 2017. Admission Date/Reason Dec 11, 2017 at 10:54 Nephrolithiasis. Discharge Date/Disposition Dec 12, 2017 Home Diagnosis Principal Diagnosis: Left Staghorn Stone Secondary Diagnoses/Problems: SHARON on CKD3 Arrhythmia with AICD Procedure(s) Performed Left PCNL Medication Reconciliation See List and paper work Admission Physical Exam As per Admitting History & Physical. Hospital Course Patient was admitted and underwent procedure for large obstructing staghorn stone of kidney on left. Patient tolerated procedure well. Improved over time. Was monitored closely with imaging and labs postoperatively. POD1 the catheter was removed. The Neph tube was draining well. Mild blood in urine with light pink color. Patient was ambulating and tolerated diet. No issues. No flatus. No N/v. Improved overall. Patient was discharged to care of family. Discharge Instructions Please refer to the electronic Patient Visit Report (Discharge Instructions) for additional information.
[2017-12-12] MEDS ORDERED: METFORMIN HCL 500 MG TAB PO SCH (16:45)
[2017-12-12] MEDS ORDERED: SITAGLIPTIN 25 MG TAB PO SCH (16:45)
[2017-12-12] MEDS ORDERED: [UNRECOGNIZED DRUG - OTHER] PO SCH (21:00)
== END 2017-12-12 14:14 | disposition home or self-care (01) | DRG 660 ==
LOC: C.ACU 05:16 → C.2T 10:54 → ENRESERV 11:14
PROVIDERS: ADMIT Urology; ATTEND Urology
PROC: 0TC44ZZ Extirpation of Matter from Left Kidney Pelvis, Percutaneous Endoscopic Approach (ICD-10-PCS; principal; 2017-12-11 07:15)
PROC: 0T744DZ Dilation of Left Kidney Pelvis with Intraluminal Device, Percutaneous Endoscopic Approach (ICD-10-PCS; principal; 2017-12-11 07:15)
PROC: 0TC74ZZ Extirpation of Matter from Left Ureter, Percutaneous Endoscopic Approach (ICD-10-PCS; principal; 2017-12-11 07:15)
PROC: 0T7 Urinary System, Dilation (ICD-10-PCS; principal; 2017-12-11 07:15)
PROC: 0TF44ZZ Fragmentation in Left Kidney Pelvis, Percutaneous Endoscopic Approach (ICD-10-PCS; principal; 2017-12-11 07:15)
PROC: 0TP570Z Removal of Drainage Device from Kidney, Via Natural or Artificial Opening (ICD-10-PCS; principal; 2017-12-11 07:15)
PROC: 0TH Urinary System, Insertion (ICD-10-PCS; principal; 2017-12-11 07:15)
DX: N13.2 Hydronephrosis with renal and ureteral calculous obstruction (principal); N17.9 Acute kidney failure, unspecified; I49.9 Cardiac arrhythmia, unspecified; I13.10 Hypertensive heart and chronic kidney disease without heart failure, with stage 1 through stage 4 chronic kidney disease, or unspecified chronic kidney disease; E11.22 Type 2 diabetes mellitus with diabetic chronic kidney disease; N18.3 Chronic kidney disease, stage 3 (moderate); I25.10 Atherosclerotic heart disease of native coronary artery without angina pectoris; E78.5 Hyperlipidemia, unspecified; G47.33 Obstructive sleep apnea (adult) (pediatric); E55.9 Vitamin D deficiency, unspecified; E66.3 Overweight; Z68.28 Body mass index [BMI] 28.0-28.9, adult; Z79.82 Long term (current) use of aspirin; Z79.899 Other long term (current) drug therapy; Z95.1 Presence of aortocoronary bypass graft; Z95.810 Presence of automatic (implantable) cardiac defibrillator; Z98.890 Other specified postprocedural states; Z87.891 Personal history of nicotine dependence; Z80.3 Family history of malignant neoplasm of breast; Z80.8 Family history of malignant neoplasm of other organs or systems; Z83.3 Family history of diabetes mellitus; Z82.49 Family history of ischemic heart disease and other diseases of the circulatory system

== ENCOUNTER → 2018-01-30 | Outpatient (CLI) | payer OTHER, BC ==
[~2018-01-30] MED LIST changes: -ACET-1256 PO; -ASPI1TAB83 PO; -KRIL1000 PO; +OXYC1TAB3 PO
--- NOTE | 2018-01-30 10:13 | DIAGNOSTIC IMAGING REPORT ---
EXAMINATION: RENAL ULTRASOUND CLINICAL HISTORY: N20.0 Nephrolithiasis COMPARISON STUDY: CT scan dated 12/12/2017, renal ultrasound performed February 2008 FINDINGS: The right kidney measures 10.8 cm. The left kidney measures 11.4 cm. There is no evidence of right-sided hydronephrosis. There is minimal prominence of the left renal collecting system and proximal left ureter. There is a minimally complex 13 mm right renal cystic lesion. There is a 9 mm left renal cyst. There are echogenic foci within the lower pole the left kidney consistent with calculi. Bilateral ureteral jets are visualized. IMPRESSION : 1. Newly complex 13 mm right renal cyst, and 9 mm left renal cyst 2. Lower pole left-sided nephrolithiasis 3. Minimal prominence left renal pelvis and proximal left ureter. Significant obstruction is not felt to be present as bilateral ureteral jets were visualized Electronically signed by: Kevin Frias M.D. 01/30/2018 10:12 AM Dictated Date/Time: 01/30/2018 10:08 AM
== END | disposition home or self-care (01) ==
LOC: C.ULTR 09:31
PROVIDERS: ATTEND Urology
DX: N20.0 Calculus of kidney (principal); N28.1 Cyst of kidney, acquired

== ENCOUNTER 2018-05-04 17:58 | Emergency (ER) | payer OTHER, BC ==
[~2018-05-04] VITALS: Ht 188 cm; Wt 104.2 kg
[~2018-05-04 17:58] MED LIST changes: +OXYC-737 PO; -OXYC1TAB3 PO
[2018-05-04 18:03] VITALS: TEMP 36.3; Ht 188 cm; Wt 104.2 kg
[2018-05-04] MEDS ORDERED: LIDOCAINE 1% BUFFERED INJ 20 ML VIAL INFIL STA (18:26)
[2018-05-04] MEDS ORDERED: DIPHTHERIA/TETANUS/PERTUSSIS 0.5 ML SYR/VIAL IM. ONE (18:30)
--- NOTE | 2018-05-04 18:35 | EMERGENCY ROOM VISIT NOTE ---
ED Visit Note First contact with patient: 18:07 CHIEF COMPLAINT: Right thumb laceration HISTORY OF PRESENT ILLNESS: This [id number] 77-year-old male patient presents to the emergency department, ambulatory, approximately 30 minutes after cutting the right first finger on a tuna can. The patient states he was grabbing the lid of the can when he sliced the lateral aspect of the thumb. The bleeding has stopped. Denies weakness or numbness of the finger. The patient has full range of motion of the fingers. The patient rates the pain as throbbing and 1/10. The patient denies any other injuries. The patient's tetanus shot is not up to date. REVIEW OF SYSTEMS: A 6 system review of systems was completed with positives and pertinent negatives listed in the HPI. ALLERGIES: None MEDICATIONS: Amiodarone, atorvastatin, carvedilol, vitamin D, vitamin B12, lisinopril, Janumet PMH: Diabetes, hyperlipidemia, hypertension SOCIAL HISTORY: The patient lives locally with family. He denies drug, alcohol , tobacco use. PHYSICAL EXAM: Vital Signs: Reviewed Nurse's notes, vital signs stable. GENERAL : This is a 77-year-old white male, in no acute distress, well developed, well nourished. SKIN: There is a 1 cm long laceration on the lateral aspect of the right first finger. The laceration does not extend to the nail. The edges gape apart with traction. There is no foreign material in the wound and it looks clean. There is no active bleeding. No deep structures such as tendons, bones, or significant blood vessels are seen in the base of the wound. Extension and flexion of the finger is full and strong. Full range of motion of the wrist and other fingers. Capillary refill less than 2 seconds. Normal sensation to light and sharp touch. EMERGENCY DEPARTMENT COURSE: I examined the patient. Verbal consent was obtained to perform the procedure. Using sterile technique the wound was cleansed with Betadine. 1 ml of 1% buffered lidocaine was used to locally anesthetize the patient. The area was sterilely draped. Once the patient was anesthetized, the wound was copiously irrigated under pressure with sterile saline. The wound was explored and there were no deep structures injured. The laceration was repaired using 4 simple interrupted 5-0 nylon sutures. The patient tolerated the procedure well. Hemostasis was achieved. The area was cleaned with sterile saline and dressed with bacitracin ointment and bandage. The patient was given a tetanus booster. The patient was discharged home in good condition. I attest that I have personally reviewed the patient's current medication list. Patient was found to have normal blood pressure on screening and does not require follow-up. Differential diagnosis includes laceration, contusion, fracture, sprain/strain, tendon or ligament injury, neurovascular compromise, foreign body, assault, and others DIAGNOSIS: right thumb laceration The chart was completed utilizing [address] [employer] Speech voice recognition software. Grammatical errors, random word insertions, pronoun errors, and incomplete sentences are an occasional consequence of this system due to software limitations, ambient noise, and hardware issues. Any formal questions or concerns about the content, text, or information contained within the body of this dictation should be directly addressed to the provider for clarification. Problem List Medical Problems: (1) Ischemic cardiomyopathy Status: Chronic (2) Ventricular fibrillation Status: Chronic Current/Historical Medications Scheduled Amiodarone Hcl (Cordarone), 200 MG PO QAM Atorvastatin (Lipitor), 40 MG PO QPM Carvedilol (Coreg), 12.5 MG PO BID Cholecalciferol (Vitamin D3), 1 CAP PO NOON Cinnamon (Cinnamon), 1,000 MG PO NOON Cyanocobalamin (Vitamin B12), 500 MCG PO BID Glucosamine-Chondroitin (Glucosamine/Chondroitin), 1 TAB PO QPM Lisinopril (Zestril), 20 MG PO QAM Multivitamin (Multivitamin), 1 TAB PO TIDM Sitagliptin-Metformin Hcl (Janumet), 1 TAB PO BID Scheduled PRN Oxycodone Immediate Rel Tab (Roxicodone Ir), 5 MG PO Q4H PRN for Severe Pain Allergies Coded Allergies: No Known Allergies (Unverified , ., 12/11/17) Vital Signs Date Time Temp Pulse Resp B/P (MAP) Pulse Ox O2 Delivery O2 Flow Rate FiO2 05/04/18 18:03 36.3 59 20 145/75 98 Room Air Departure Information Impression Primary Impression: Laceration of finger Additional Impression: Need for tetanus booster Dispostion Home / Self-Care Condition GOOD Referrals Josafat Kohler D.OTrell (PCP) Patient Instructions ED Laceration Hand, My [facility] Additional Instructions You have received 4 sutures on your right thumb. These sutures are NOT dissolvable and WILL need to be removed by a health care provider in 12-14 days. You can return to the Emergency Department or contact your Primary Care Provider to have the sutures removed. You did receive a Tdap booster. Proper wound care is essential for adequate wound healing and infection prevention. You can shower and clean the wound with soap and water. Do not scour over the wound, pat dry with a towel. Do not submerse the wound (i.e. bathe or dish wash) until the sutures have been removed. You can use an antibiotic ointment with a dressing over the wound for the next 3-4 days. After this time you may leave the wound dry and open to the air. If crust develops over the wound you can use a Q-tip to apply a 1:1 peroxide:water solution to clean the wound. Look for signs of infection of the wound including: increased pain, swelling, foul discharge, streaking, or increased temperature. If any of these are noticed you should return to the Emergency Department for further assessment and treatment. As with any laceration you may have received nerve damage to the surrounding tissues. This damage may or may not be permanent. You should keep the area covered with sunscreen for the first 6 months to 1 year when at risk for exposure to help minimize scarring. For pain control, you can use the following yowd-lqr-skrhliu medicines (if >12 yo): Acetaminophen(Tylenol) may be used for fever or pain. Use 1000mg every six hours as needed. Avoid using more than 3000mg in a 24 hour period. Return to the emergency department if your symptoms worsen despite treatment course outlined above. Problem Qualifiers Primary Impression: Laceration of finger Encounter type: initial encounter Finger: thumb Damage to nail status: without damage Foreign body presence: without foreign body Laterality: right Qualified Codes: S61.011A - Laceration without foreign body of right thumb without damage to nail, initial encounter
--- NOTE | 2018-05-04 18:51 | EMERGENCY ROOM VISIT NOTE ---
ED Visit Note First contact with patient: 18:07 Staff note: I have reviewed the Patients chart and have discussed this case with my PA. I generally agree with the ED note and findings.
[2018-05-04 19:12] VITALS: BP 153/76; PULSE 56; O2SAT 97
== END 2018-05-04 19:14 | disposition home or self-care (01) ==
LOC: C.EDB 18:00 → C.EDD 19:14
DX: S61.011A Laceration without foreign body of right thumb without damage to nail, initial encounter (principal); W26.8XXA Contact with other sharp object(s), not elsewhere classified, initial encounter; E11.9 Type 2 diabetes mellitus without complications; I10 Essential (primary) hypertension; E78.5 Hyperlipidemia, unspecified; I49.01 Ventricular fibrillation; I25.5 Ischemic cardiomyopathy; Z79.84 Long term (current) use of oral hypoglycemic drugs; Z79.899 Other long term (current) drug therapy; Z23 Encounter for immunization

== ENCOUNTER 2019-07-16 16:18 | Inpatient (IN) ==
[2019-07-16 17:33] LABS: Alanine Aminotransferase 39 U/L (12-78); Albumin Level 3.6 gm/dl (3.4-5.0); Aspartate Aminotransferase 19 U/L (15-37); BUN Creatinine Ratio 16.3 (10-20); Blood Urea Nitrogen 25 mg/dl (7-18); Calcium 9.7 mg/dl (8.5-10.1); Carbon Dioxide 27 mmol/L (21-32); Chloride 108 mmol/L (98-107); Creatinine Clr Calc Pharmacy 50.9 ml/min; Est GFR (African American) 49.3; Est GFR (Non-African American) 42.5; Glucose 166 mg/dl (70-99); Lipase 313 U/L (73-393); Potassium 4.3 mmol/L (3.5-5.1); Sodium 141 mmol/L (136-145)
[2019-07-16 17:38] LABS: Alkaline Phosphatase 59 U/L (45-117); Bilirubin,Total 0.6 mg/dl (0.2-1); Creatine Kinase MB 2.7 ng/ml (0.5-3.6); Globulin 3.5 gm/dl (2.5-4.0); Total Protein 7.1 gm/dl (6.4-8.2); Troponin I < 0.015 ng/ml (0-0.045)
--- NOTE | 2019-07-16 17:40 | XRay Report ---
XR chest 1V portable CLINICAL HISTORY: Chest Pain dyspnea COMPARISON STUDY: 07/12/2019 FINDINGS: Permanent unipolar cardiac pacemaker/defibrillator. Chronic interstitial change left base. Lungs otherwise appear clear. IMPRESSION: Chronic and postoperative change. No acute process. The above report was generated using voice recognition software. It may contain grammatical, syntax or spelling errors. Electronically signed by: Chaka Mason M.D. 07/16/2019 5:39 PM
[2019-07-16 18:04] LABS: Hematocrit (blood only) 37.8 % (42-52); Hemoglobin 12.6 g/dL (14.0-18.0); Mean Corpuscular Hemoglobin 32.6 pg (25-34); Mean Corpuscular Hgb Conc 33.3 g/dL (32-36); Mean Corpuscular Volume 97.9 fL (80-100); Mean Platelet Volume 12.2 fL (7.4-10.4); Platelet Count 118 K/uL (130-400); RDW Coefficient of Variation 14.7 % (11.5-14.5); Red Blood Count 3.86 M/uL (4.7-6.1); White Blood Count 5.91 K/uL (4.8-10.8)
[2019-07-16 18:05] LABS: Basophils # (auto) 0.01 K/uL (0-0.2); Basophils % (auto) 0.2 %; Eosinophils # (auto) 0.16 K/uL (0-0.5); Eosinophils % (auto) 2.7 %; Immature Granulocytes # (auto) 0.01 K/uL (0.00-0.02); Immature Granulocytes % (auto) 0.2 %; Lymphocytes # (auto) 1.58 K/uL (1.2-3.4); Lymphocytes % (auto) 26.7 %; Monocytes # (auto) 0.63 K/uL (0.11-0.59); Monocytes % (auto) 10.7 %; Neutrophils # (auto) 3.52 K/uL (1.4-6.5); Neutrophils % (auto) 59.5 %; Platelet Estimate Decreased (Normal); Schistocytes 1+
--- NOTE | 2019-07-16 18:47 | History & Physical Report ---
Date of Service July 16, 2019 Assessment & Plan (1) Implantable cardioverter-defibrillator (ICD) discharge: (2) Pacemaker: (3) CAD (coronary atherosclerotic disease): (4) Chronic kidney disease, stage III (moderate): (5) Obstructive sleep apnea: (6) On amiodarone therapy: (7) Overweight: (8) Ischemic cardiomyopathy: (9) Defibrillator discharge: We will monitor on the telemetry floor. Cardiology was notified. Repeat labs in a.m. Monitor electrolytes. Check magnesium levels. Defibrillator was checked by the nursing technician today. Add subcu heparin for DVT prophylaxis. Add gentle IV fluids. Add sliding scale insulin. Continue home medications. CODE STATUS full code History of Present Illness Chief Complaint: Defibrillator fired x2 Primary Care Provider: Josafat Kohler DO The patient is 78-year-old male with history of ischemic cardiomyopathy, status post defibrillator. Today he presented to the emergency room after his defibrillator fired 2 times while he was mowing the lawn. He denies any chest pain. No shortness of breath, although he has history of dyspnea on exertion. His defibrillator was checked by the nursing technician and it appears that patient has had more than 23 episodes of V. tach since 05/26/2019. Cardiology was notified and patient will be admitted under observation for further evaluation and management. Allergies Allergy/AdvReac Type Severity Reaction Status Date / Time No Known Allergies Allergy . Verified 07/12/19 12:29 Home Medications Home Medications Medication Instructions Recorded Confirmed Type aspirin [Aspir-81] 81 mg PO QAM 11/13/18 07/16/19 History cyanocobalamin (vitamin B-12) 5,000 mcg PO QDL 11/13/18 07/16/19 History krill oil 1,000 mg PO QDL 11/13/18 07/16/19 History carvedilol 12.5 mg tablet 12.5 mg PO BID #180 tab 02/28/19 07/16/19 Rx lisinopril 20 mg tablet 20 mg PO QAM #90 tab 02/28/19 07/16/19 Rx cholecalciferol (vitamin D3) 2,000 2,000 units PO QDL 03/03/19 07/16/19 History unit capsule multivitamin tablet 1 tab PO TIDM tab 03/04/19 07/16/19 History hlnmwmduwkoti-nysbeesitegxb-ibpywghrovh 1 tab PO QAM PRN 03/04/19 07/16/19 History 5 mg-325 mg-200 mg tablet atorvastatin 40 mg PO HS 07/12/19 07/16/19 History sitagliptin-metformin [Janumet] 1 tab PO BIDM 07/12/19 07/16/19 History amiodarone 200 mg tablet 200 mg PO BID 07/15/19 07/16/19 History Past Med/Surg History Medical History Anemia (Acute) Benign prostatic hyperplasia (Acute) Bladder stones (Acute) Cardiac defibrillator in place (Acute) Chronic kidney disease, stage III (moderate) (Acute) Diabetes mellitus (Acute) Hearing loss (Acute) Hydronephrosis (Acute) Obstructive sleep apnea (Acute) On amiodarone therapy (Acute) Overweight (Acute) Paroxysmal ventricular tachycardia (Acute) SNHL (sensorineural hearing loss) (Acute) Sustained SVT (Acute) Ureteric stone (Acute) Urinary frequency (Acute) Vitamin D deficiency (Acute) Ischemic cardiomyopathy (Chronic Unknown) CAD (coronary artery disease) H/O [place] 1988, S/P CABG 1998 Depression Diabetes mellitus, type 2 H/O acute myocardial infarction 1988 History of ventricular fibrillation Hyperlipidemia Hypertension patient denies having HTN ICD (implantable cardioverter-defibrillator) in place 2002 AND REPLACED 2012-FIRED LAST SPRING 2017 Kidney stones AND BLADDER STONE Sleep apnea CPAP Surgical History S/P CABG (coronary artery bypass graft) (Acute) History of adenoidectomy History of cataract surgery R/L History of coronary artery bypass graft 3 VESSELS 1998 History of cystoscopy REMOVAL KIDNEY STONE History of laminectomy History of nasal septoplasty History of tonsillectomy S/P ICD (internal cardiac defibrillator) procedure Placed 2002, replaced 2012. Family History Mother Breast cancer Grandmother (Maternal) No problems noted. 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[employer] Model Required: No Beliefs That Will Affect Care: None Current Living Situation: Spouse Feels Safe at Home: Yes Smoking Status: Former smoker Second Hand Exposure: No ; Hx Alcohol Use: No Hx Substance Use: No Review of Systems Review of Systems: All systems reviewed & are unremarkable except as noted in HPI & below Physical Exam Physical Exam: GENERAL : No acute distress EYES: No icterus, gaze conjugate NOSE: No evidence of epistaxis MOUTH: No lesions or candidiasis, mucosa moist NECK: Supple LUNGS: CTA B/L, no wheezes, rales or rhonchi HEART: Regular, rate controlled ABDOMEN: Soft, NT, ND, BS Present EXTREMITIES: No LE edema, pedal pulses intact NEURO: A&OX3 Results & Data Vital Signs (Past 12 Hours) Vital Signs Temp Pulse Resp BP Pulse Ox 07/16/19 16:31 97 07/16/19 16:20 97.3 F L 72 22 161/77 H 97 Laboratory Results 07/16/19 17:00 07/16/19 17:00 Diagnostic Findings XR chest 1V portable CLINICAL HISTORY: Chest Pain dyspnea COMPARISON STUDY: 07/12/2019 FINDINGS: Permanent unipolar cardiac pacemaker/defibrillator. Chronic interstitial change left base. Lungs otherwise appear clear. IMPRESSION: Chronic and postoperative change. No acute process. Code Status & VTE Plan Code Status Full code VTE Prophylaxis Plan VTE Prophylaxis will be ordered: Yes PG Care Time/CCT Total # of Minutes Spent Total Time Spent with Patient: Total time spent is greater than 50% in coordination of care (as documented) at patient's floor/unit and/or counseling patient: 60 min
[2019-07-16] MEDS ORDERED: GLUCOSE 40% GEL 15 GM TUBE PO PRN (20:15)
[2019-07-16] MEDS ORDERED: CARBOHYDRATES FOR HYPOGLYCEMIA PO PRN (20:15)
[2019-07-16] MEDS ORDERED: GLUCAGON FOR INJ 1 MG VIAL IM PRN (20:15)
[2019-07-16] MEDS ORDERED: DEXTROSE 50% 50 ML SYRINGE IV PRN (20:15)
[2019-07-16] MEDS ORDERED: GLUCOSE 10 TABS/TUBE PO PRN (20:15)
--- NOTE | 2019-07-16 20:36 | Emergency Department Note ---
Entered by Anaya Murillo acting as a scribe for Jaime Beverly DO History of Present Illness General Chief complaint: Cardiac Assessment Stated complaint: DEFIBULLATOR WENT OFF Time Seen by Provider: 07/16/19 16:25 Source: patient History of Present Illness Provider complaint: Cardiac Assessment Onset (ago): hour(s) 1 Location: chest Radiation: non-radiation Relieved By: + none Exacerbated By: + none Associated symptoms: + denies other symptoms (Palpitations); no chest pain and no nausea/vomiting The patient is a 78 year old male who presents to the Emergency Room with complaints of cardiac symptoms that began about 1 hour prior when his life vest defibrillator went off. The patient states the symptoms do not radiate anywhere else on his body and are not relieved nor exacerbated by anything specific. The patient denies experiencing any chest pain, palpitations, or nausea/vomiting. The patient mentioned that he was at the emergency department on Sunday. Home Medications Home Medications Medication Instructions Recorded Confirmed Type aspirin [Aspir-81] 81 mg PO QAM 11/13/18 07/16/19 History cyanocobalamin (vitamin B-12) 5,000 mcg PO QDL 11/13/18 07/16/19 History krill oil 1,000 mg PO QDL 11/13/18 07/16/19 History carvedilol 12.5 mg tablet 12.5 mg PO BID #180 tab 02/28/19 07/16/19 Rx lisinopril 20 mg tablet 20 mg PO QAM #90 tab 02/28/19 07/16/19 Rx cholecalciferol (vitamin D3) 2,000 2,000 units PO QDL 03/03/19 07/16/19 History unit capsule multivitamin tablet 1 tab PO TIDM tab 03/04/19 07/16/19 History wzwfmoaabsegs-jmsebbfnjqjmr-eliesjmwbqc 1 tab PO QAM PRN 03/04/19 07/16/19 History 5 mg-325 mg-200 mg tablet atorvastatin 40 mg PO HS 07/12/19 07/16/19 History sitagliptin-metformin [Janumet] 1 tab PO BIDM 07/12/19 07/16/19 History amiodarone 200 mg tablet 200 mg PO BID 07/15/19 07/16/19 History Allergies Allergy/AdvReac Type Severity Reaction Status Date / Time No Known Allergies Allergy . Verified 07/12/19 12:29 Past Med/Surg History Medical History Anemia (Acute) Benign prostatic hyperplasia (Acute) Bladder stones (Acute) Cardiac defibrillator in place (Acute) Chronic kidney disease, stage III (moderate) (Acute) Diabetes mellitus (Acute) Hearing loss (Acute) Hydronephrosis (Acute) Obstructive sleep apnea (Acute) On amiodarone therapy (Acute) Overweight (Acute) Paroxysmal ventricular tachycardia (Acute) SNHL (sensorineural hearing loss) (Acute) Sustained SVT (Acute) Ureteric stone (Acute) Urinary frequency (Acute) Vitamin D deficiency (Acute) Ischemic cardiomyopathy (Chronic Unknown) CAD (coronary artery disease) H/O HI 1988, S/P CABG 1998 Depression Diabetes mellitus, type 2 H/O acute myocardial infarction 1988 History of ventricular fibrillation Hyperlipidemia Hypertension patient denies having HTN ICD (implantable cardioverter-defibrillator) in place 2002 AND REPLACED 2012-FIRED LAST SPRING 2017 Kidney stones AND BLADDER STONE Sleep apnea CPAP Surgical History S/P CABG (coronary artery bypass graft) (Acute) History of adenoidectomy History of cataract surgery R/L History of coronary artery bypass graft 3 VESSELS 1998 History of cystoscopy REMOVAL KIDNEY STONE History of laminectomy History of nasal septoplasty History of tonsillectomy S/P ICD (internal cardiac defibrillator) procedure Placed 2002, replaced 2012. Family History Mother Breast cancer Grandmother (Maternal) No problems noted. 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 and A total of 10 systems reviewed and were otherwise negative Physical Exam Vital Signs Vital Signs - 24 hr 07/16/19 16:20 07/16/19 16:31 07/16/19 16:32 Temperature 36.3 C L Temperature Source Oral Sepsis Recent Fever Within 48 Hours No Sepsis New/Unexplained Change in Mental Status No Sepsis Action Taken by Nursing No Action Required Pulse Rate 72 67 Respiratory Rate 22 24 Blood Pressure 161/77 H 157/76 H Blood Pressure Mean 105 103 Pulse Oximetry 97 97 95 Oxygen Delivery Method Room Air Room Air Room Air 07/16/19 16:39 07/16/19 16:45 07/16/19 17:00 Temperature Temperature Source Sepsis Recent Fever Within 48 Hours Sepsis New/Unexplained Change in Mental Status Sepsis Action Taken by Nursing Pulse Rate 67 64 Respiratory Rate 13 15 Blood Pressure Blood Pressure Mean Pulse Oximetry 96 94 Oxygen Delivery Method Room Air Room Air Room Air 07/16/19 17:30 07/16/19 18:00 Temperature Temperature Source Sepsis Recent Fever Within 48 Hours Sepsis New/Unexplained Change in Mental Status Sepsis Action Taken by Nursing Pulse Rate 63 63 Respiratory Rate 20 17 Blood Pressure Blood Pressure Mean Pulse Oximetry 92 94 Oxygen Delivery Method Room Air Room Air GENERAL: Patient is awake, alert, and in no acute distress.Patient is resting comfortably and showing no signs of anxiety EYES: The conjunctivae are clear. The pupils are round and reactive. EARS, NOSE, MOUTH AND THROAT: The nose is without any evidence of any deformity. Mucous membranes are moist.Tongue is midline NECK: The neck is nontender and supple. RESPIRATORY: Normal respiratory effort is noted. There is no evidence of wheezing rhonchi or rales to auscultation. CARDIOVASCULAR: Regular rate and rhythm noted. There no murmurs rubs or gallops normal S1 normal S2 GASTROINTESTINAL: The abdomen is soft. Bowel sounds are present in all quadrants. Abdomen is nontender. MUSCULOSKELETAL/EXTREMITIES: There is no evidence of gross deformity. Full range of motion is noted in the hips and shoulders. SKIN: There is no obvious evidence of any rash. There are no petechiae, pallor or cyanosis noted. Trace pedal edema bilaterally. NEUROLOGIC: Patient is awake alert and oriented x3. Strength is symmetric. Patellar reflexes are 2+ bilaterally. Course 1640: Past medical records reviewed. The patient was seen and evaluated by the Resident Physician in room C06 at this time. History and physical were discussed with me. 1811: I spoke with Dr. Gary-Cardiology about the patient's case and he recommends admission. 182: I spoke with Dr. Escalona- Hospitalist about the patient's case and he will accept the patient for further evaluation. Administered Medications Aspirin (Ecotrin Ectab) 81 mg PO QAM JANEEN Stop: 08/16/19 08:59 Last Admin: 07/17/19 08:44 Dose: 81 mg Documented by: [id number] Atorvastatin Calcium (Lipitor) 40 mg PO HS JANEEN Stop: 08/15/19 20:59 Last Admin: 07/16/19 21:05 Dose: 40 mg Documented by: [id number] Carvedilol (Coreg) 12.5 mg PO BID JANEEN Stop: 08/15/19 20:59 Last Admin: 07/17/19 08:45 Dose: 12.5 mg Documented by: [id number] Admin: 07/16/19 21:04 Dose: 12.5 mg Documented by: [id number] Enoxaparin Sodium (Lovenox) 40 mg SQ Q24H JANEEN Stop: 08/15/19 20:59 Last Admin: 07/16/19 21:04 Dose: 40 mg Documented by: [id number] Sodium Chloride (Nss 1000ml) 1,000 mls @ 60 mls/hr IV .[id number] JANEEN Stop: 08/15/19 19:47 Last Admin: 07/16/19 21:15 Dose: 60 mls/hr Documented by: [id number] Insulin Aspart (Novolog Flexpen) 0 units SC ACHS JANEEN Stop: 08/15/19 20:59 Last Admin: 07/17/19 08:42 Dose: 4 units Documented by: [id number] Cosigned by: [id number] Admin: 07/16/19 21:48 Dose: 3 units Documented by: [id number] Cosigned by: [id number] Lisinopril (Zestril) 20 mg PO QAM JANEEN Stop: 08/16/19 08:59 Last Admin: 07/17/19 08:44 Dose: 20 mg Documented by: [id number] Metformin HCl (Glucophage) 1,000 mg PO BIDM [facility] Stop: 08/16/19 07:59 Last Admin: 07/17/19 08:44 Dose: 1,000 mg Documented by: [id number] Multivitamins (Multivitamin Tab) 1 tab PO TIDM [facility] Stop: 08/16/19 07:59 Last Admin: 07/17/19 08:44 Dose: 1 tab Documented by: [id number] Sitagliptin Phosphate (Januvia) 50 mg PO BIDM [facility] Stop: 08/16/19 07:59 Last Admin: 07/17/19 08:44 Dose: 50 mg Documented by: [id number] Discontinued Medications Amiodarone HCl (Cordarone) 200 mg PO BID JANEEN Stop: 08/15/19 20:59 Last Admin: 07/17/19 08:43 Dose: 200 mg Documented by: [id number] Admin: 07/16/19 21:05 Dose: 200 mg Documented by: [id number] Amiodarone HCl (Cordarone) 200 mg PO NOW ONE Stop: 07/17/19 09:52 Last Admin: 07/17/19 10: Dose: 200 mg Documented by: [id number] Medical Decision Making Differential Diagnosis Differential diagnosis includes etiologies such as premature contractions, electrolyte abnormality, cardiac dysrhythmia, thyroid dysfunction, pulmonary embolism, infection, gastrointestinal, as well as others were entertained. Medical Records Attestation: I reviewed the patient's medical records. Home Medications Current Medication List: was personally reviewed by me Laboratory Data Attestation: I reviewed the patient's lab results. Result diagrams: 07/17/19 02:04 07/17/19 02:04 Lab Results 07/16/19 07/16/19 Range/Units 17:00 17:00 WBC 5.91 (4.8-10.8) K/uL RBC 3.86 L (4.7-6.1) M/uL Hgb 12.6 L (14.0-18.0) g/dL Hct 37.8 L (42-52) % MCV 97.9 (80-100) fL MCH 32.6 (25-34) pg MCHC 33.3 (32-36) g/dL RDW Std Deviation 52.0 H (36.4-46.3) fL RDW Coeff of David 14.7 H (11.5-14.5) % Plt Count 118 L (130-400) K/uL MPV 12.2 H (7.4-10.4) fL Immature Gran % (Auto) 0.2 % Neut % (Auto) 59.5 % Lymph % (Auto) 26.7 % Banks % (Auto) 10.7 % Eos % (Auto) 2.7 % Baso % (Auto) 0.2 % Immature Gran # (Auto) 0.01 (0.00-0.02) K/uL Neut # (Auto) 3.52 (1.4-6.5) K/uL Lymph # (Auto) 1.58 (1.2-3.4) K/uL Banks # (Auto) 0.63 H (0.11-0.59) K/uL Eos # (Auto) 0.16 (0-0.5) K/uL Baso # (Auto) 0.01 (0-0.2) K/uL Platelet Estimate Decreased L (Normal) Schistocytes 1+ Sodium 141 (136-145) mmol/L Potassium 4.3 (3.5-5.1) mmol/L Chloride 108 H (98-107) mmol/L Carbon Dioxide 27 (21-32) mmol/L Anion Gap 6.0 (3-11) BUN 25 H (7-18) mg/dl Creatinine 1.55 H (0.6-1.4) mg/dl Est Cr Clr Drug Dosing 50.9 ml/min Est GFR ( Amer) 49.3 Est GFR (Non-Af Amer) 42.5 BUN/Creatinine Ratio 16.3 (10-20) Glucose 166 H (70-99) mg/dl Calcium 9.7 (8.5-10.1) mg/dl Total Bilirubin 0.6 (0.2-1) mg/dl AST 19 (15-37) U/L ALT 39 (12-78) U/L Alkaline Phosphatase 59 (45-117) U/L CK-MB (CK-2) 2.7 (0.5-3.6) ng/ml Troponin I < 0.015 (0-0.045) ng/ml Total Protein 7.1 (6.4-8.2) gm/dl Albumin 3.6 (3.4-5.0) gm/dl Globulin 3.5 (2.5-4.0) gm/dl Albumin/Globulin Ratio 1.0 (0.9-2) Lipase 313 (73-393) U/L Imaging Data Radiologist's Impression: Radiology results as stated below per my review and the radiologist's interpretation: XR chest 1V portable CLINICAL HISTORY: Chest Pain dyspnea COMPARISON STUDY: 07/12/2019 FINDINGS: Permanent unipolar cardiac pacemaker/defibrillator. Chronic interstitial change left base. Lungs otherwise appear clear. IMPRESSION: Chronic and postoperative change. No acute process. The above report was generated using voice recognition software. It may contain grammatical, syntax or spelling errors. Electronically signed by: Chaka Mason M.D. 07/16/2019 5:39 PM ECG Data Attestation: I personally reviewed and interpreted this ECG as follows: Indication: other (Cardiac Assessment) Rate (beats per minute): 73 Rhythm: normal sinus ECG ST segments: ST depression (Atypical and lateral) ECG Findings: Other (No PACs or PVCs ) Comparison ECG Date: from (07/12/2019) Change: no significant change Blood Pressure Blood Pressure Findings: Elevated blood pressure Blood Pressure Disposition: further management by hospitalist USMAN Narrative Patient is a 78-year-old male who presented to the emergency department for an evaluation of chest pain. The patient has a history of a cardiac defibrillator he was seen in our facility recently for similar complaints when his defibrillator fired. He was mowing his grass today when he noticed his defibrillator firing. At this time he has no complaints. We had his defibr illator interrogated and it did fire appropriately. We discussed his case with the [facility] hardness inspector and they did recommend it at this time given the patient's return visit for wide-complex tachycardia he be admitted to the hospital for further inpatient work-up. We discussed his case with the on-call [facility] hospitalist group. They have agreed to evaluate the patient in the emergency department for further management disposition. Impression & Plan Chest pain, Defibrillator discharge, Non-sustained ventricular tachycardia Discharge Plan Visit Data *Final* Discharge Date/Time: 07/16/19 19:35 Chief Complaint: Cardiac Assessment Stated Complaint: DEFIBULLATOR WENT OFF ED Provider: Jaime Beverly ED Midlevel Provider: Pedro Don Problem: Chest pain, Defibrillator discharge, Non-sustained ventricular tachycardia Patient Disposition: Admitted As Inpatient Discharge Instructions Interventions: ED Discharge Assessment Last Done: 07/16/19 19:35 The scribe's documentation has been prepared under my direction and personally reviewed by me in its entirety. I confirm that the note above accurately reflects all work, treatment, procedures, and medical decision making performed by me.
[2019-07-16] MEDS: ENOXAPARIN INJ 40 MG/0.4 ML SYR SQ SCH (21:04)
[2019-07-16] MEDS: CARVEDILOL 12.5 MG TAB PO SCH (21:04)
[2019-07-16] MEDS: AMIODARONE 200 MG TAB PO SCH (21:05)
[2019-07-16] MEDS: ATORVASTATIN 40 MG TAB PO SCH (21:05)
[2019-07-16] MEDS: SODIUM CHLORIDE 0.9% 1000ML 1,000 ML IV SCH (21:15)
[2019-07-16] MEDS: INSULIN ASPART 100 UNITS/ML 3 ML PEN SC SCH (21:48)
[2019-07-17 04:05] LABS: Alanine Aminotransferase 32 U/L (12-78); Albumin Level 3.1 gm/dl (3.4-5.0); Alkaline Phosphatase 48 U/L (45-117); Aspartate Aminotransferase 13 U/L (15-37); BUN Creatinine Ratio 18.3 (10-20); Bilirubin,Total 0.6 mg/dl (0.2-1); Blood Urea Nitrogen 24 mg/dl (7-18); Calcium 8.6 mg/dl (8.5-10.1); Carbon Dioxide 30 mmol/L (21-32); Chloride 109 mmol/L (98-107); Creatinine Clr Calc Pharmacy 58.7 ml/min; Est GFR (African American) 59.3; Est GFR (Non-African American) 51.2; Glucose 146 mg/dl (70-99); Potassium 3.8 mmol/L (3.5-5.1); Sodium 142 mmol/L (136-145); Total Protein 6.1 gm/dl (6.4-8.2); Troponin I < 0.015 ng/ml (0-0.045)
[2019-07-17 04:07] LABS: Hemoglobin 11.5 g/dL (14.0-18.0); Mean Corpuscular Hemoglobin 31.9 pg (25-34); Mean Corpuscular Hgb Conc 32.9 g/dL (32-36); Mean Corpuscular Volume 97.2 fL (80-100); Mean Platelet Volume 12.3 fL (7.4-10.4); Platelet Count 108 K/uL (130-400); RDW Coefficient of Variation 14.6 % (11.5-14.5); RDW Standard Deviation 51.7 fL (36.4-46.3); White Blood Count 5.35 K/uL (4.8-10.8)
[2019-07-17 04:17] LABS: Bilirubin Direct 0.2 mg/dl (0-0.2)
[2019-07-17] MEDS: INSULIN ASPART 100 UNITS/ML 3 ML PEN SC SCH ×4 (08:42→21:39)
[2019-07-17] MEDS: AMIODARONE 200 MG TAB PO SCH ×2 (08:43→17:31)
[2019-07-17] MEDS: LISINOPRIL 20 MG TAB PO SCH (08:44)
[2019-07-17] MEDS: MULTIVITAMIN TAB PO SCH ×3 (08:44→17:32)
[2019-07-17] MEDS: ASPIRIN 81 MG ECTAB PO SCH (08:44)
[2019-07-17] MEDS: METFORMIN HCL 500 MG TAB PO SCH ×2 (08:44→17:32)
[2019-07-17] MEDS: SITAGLIPTIN PHOSPHATE 25 MG TAB PO SCH ×2 (08:44→17:31)
[2019-07-17] MEDS: CARVEDILOL 12.5 MG TAB PO SCH ×2 (08:45→21:22)
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
[2019-07-17] MEDS ORDERED: AMIODARONE 200 MG TAB PO ONE (09:51)
[2019-07-17] MEDS ORDERED: ATROPINE SULFATE 0.1 MG/ML 10ML SYR IV ONE (12:46)
[2019-07-17] MEDS ORDERED: DOBUTamine HCL 12.5 MG/ML 20 ML VIAL IV ONE (12:46)
[2019-07-17] MEDS ORDERED: METOPROLOL TARTRATE 1 MG/ML VIAL IV ONE (12:46)
[2019-07-17] MEDS: CHOLECALCIFEROL 1,000 UNITS TAB PO SCH (13:58)
[2019-07-17] MEDS: SODIUM CHLORIDE 0.9% 1000ML 1,000 ML IV SCH (13:59)
[2019-07-17] MEDS: CYANOCOBALAMIN (VITAMIN B-12) 2,500 MCG TAB.SUBL SL SCH (13:59)
--- NOTE | 2019-07-17 17:15 | Hospitalist Progress Note ---
Date of Service July 17, 2019 Assessment & Plan (1) Non-sustained ventricular tachycardia: interrogation of pacer shows multiple episodes of V tach most have been paced out of defibrillator went off twice though continue increased dose of Amiodarone Dr. Mcnair managing (2) Defibrillator discharge: due to V tach, happened twice (3) Implantable cardioverter-defibrillator (ICD) discharge: see above (4) Pacemaker: (5) CAD (coronary atherosclerotic disease): no ischemic changes on stress echo today (6) Chronic kidney disease, stage III (moderate): Cr is stable (7) Obstructive sleep apnea: (8) On amiodarone therapy: increase dose due to V tach (9) Overweight: (10) Ischemic cardiomyopathy: EF lower than in the past at 35% no signs of volume overload will d/w Dr. Mcnair tomorrow continue Coreg, Lisinopril Subjective patient feeling fine since admission, no further discharges of the defibrillator no chest pain or pressure, no dyspnea eating well d/w Dr. Mcnair, he would like to get dobutamine stress echo stress echo did not show any ischemic changes however, the EF has reduced to 35% which is new will follow up further with cardiology Review of Systems Review of Systems: All systems reviewed & are unremarkable except as noted in HPI & below Constitutional: no fever, no fatigue and no weakness Respiratory: no cough and no dyspnea Cardiovascular: no chest pain, no palpitations, no syncope and no edema Gastrointestinal: no abdominal pain, no nausea, no vomiting, no constipation and no diarrhea/loose stools Genitourinary: no dysuria and no urinary hesitancy Physical Exam Constitutional: WD/WN, vitals as above Eyes: PERRL, conjunctivae normal, anicteric sclerae ENMT: external ear and nose normal, oropharynx normal Neck: trachea midline, no thyromegaly Respiratory: normal respiratory effort, lungs clear to auscultation Cardiovascular: RRR, no murmur, no edema Gastrointestinal (Abdomen): normal bowel sounds, soft, nontender, no hepatosplenomegaly Musculoskeletal: no cyanosis or clubbing, extremities motor strength 5/5 Skin: no rashes, warm and dry Neurologic: patellar DTR's 2+ bilat, sensation intact and PERRL, EOMI, accommodation nl, no face palsy, no dysarthria Psychiatric: A+Ox3, euthymic affect Lymphatic: no cervical or axillary lymphadenopathy Results & Data Vital Signs (Past 12 Hours) Vital Signs Temp Pulse Pulse Resp BP Pulse Ox 07/17/19 16:01 59 L 07/17/19 15:27 36.6 C 56 L 18 104/53 L 95 07/17/19 11:10 36.5 C 58 L 18 126/55 L 97 07/17/19 07:07 36.4 C L 50 L 18 120/53 L 96 Laboratory Results Laboratory Results - last 24 hr 07/16/19 07/16/19 07/16/19 17:00 17:00 19:56 WBC 5.91 RBC 3.86 L Hgb 12.6 L Hct 37.8 L MCV 97.9 MCH 32.6 MCHC 33.3 RDW Std Deviation 52.0 H RDW Coeff of David 14.7 H Plt Count 118 L MPV 12.2 H Immature Gran % (Auto) 0.2 Neut % (Auto) 59.5 Lymph % (Auto) 26.7 [place] % (Auto) 10.7 Eos % (Auto) 2.7 Baso % (Auto) 0.2 Immature Gran # (Auto) 0.01 Neut # (Auto) 3.52 Lymph # (Auto) 1.58 [place] # (Auto) 0.63 H Eos # (Auto) 0.16 Baso # (Auto) 0.01 Platelet Estimate Decreased L Schistocytes 1+ Sodium 141 Potassium 4.3 Chloride 108 H Carbon Dioxide 27 Anion Gap 6.0 BUN 25 H Creatinine 1.55 H Est Cr Clr Drug Dosing 50.9 Est GFR ( Amer) 49.3 Est GFR (Non-Af Amer) 42.5 BUN/Creatinine Ratio 16.3 Glucose 166 H POC Glucose 144 H Calcium 9.7 Magnesium Total Bilirubin 0.6 Direct Bilirubin AST 19 ALT 39 Alkaline Phosphatase 59 CK-MB (CK-2) 2.7 Troponin I < 0.015 Total Protein 7.1 Albumin 3.6 Globulin 3.5 Albumin/Globulin Ratio 1.0 Lipase 313 Amiodarone Desmethylamiodarone 07/17/19 07/17/19 07/17/19 02:04 02:04 07:24 WBC 5.35 RBC 3.60 L Hgb 11.5 L Hct 35.0 L MCV 97.2 MCH 31.9 MCHC 32.9 RDW Std Deviation 51.7 H RDW Coeff of David 14.6 H Plt Count 108 L MPV 12.3 H Immature Gran % (Auto) Neut % (Auto) Lymph % (Auto) [place] % (Auto) Eos % (Auto) Baso % (Auto) Immature Gran # (Auto) Neut # (Auto) Lymph # (Auto) [place] # (Auto) Eos # (Auto) Baso # (Auto) Platelet Estimate Schistocytes Sodium 142 Potassium 3.8 Chloride 109 H Carbon Dioxide 30 Anion Gap 3.0 BUN 24 H Creatinine 1.33 Est Cr Clr Drug Dosing 58.7 Est GFR ( Amer) 59.3 Est GFR (Non-Af Amer) 51.2 BUN/Creatinine Ratio 18.3 Glucose 146 H POC Glucose 163 H Calcium 8.6 Magnesium 2.0 Total Bilirubin 0.6 Direct Bilirubin 0.2 AST 13 L ALT 32 Alkaline Phosphatase 48 CK-MB (CK-2) Troponin I < 0.015 Total Protein 6.1 L Albumin 3.1 L Globulin 3.0 Albumin/Globulin Ratio 1.0 Lipase Amiodarone Desmethylamiodarone 07/17/19 07/17/19 07/17/19 10:45 10:45 11:23 WBC RBC Hgb Hct MCV MCH MCHC RDW Std Deviation RDW Coeff of David Plt Count MPV Immature Gran % (Auto) Neut % (Auto) Lymph % (Auto) [place] % (Auto) Eos % (Auto) Baso % (Auto) Immature Gran # (Auto) Neut # (Auto) Lymph # (Auto) [place] # (Auto) Eos # (Auto) Baso # (Auto) Platelet Estimate Schistocytes Sodium Potassium Chloride Carbon Dioxide Anion Gap BUN Creatinine Est Cr Clr Drug Dosing Est GFR ( Amer) Est GFR (Non-Af Amer) BUN/Creatinine Ratio Glucose POC Glucose 132 H Calcium Magnesium Total Bilirubin Direct Bilirubin AST ALT Alkaline Phosphatase CK-MB (CK-2) Troponin I < 0.015 Total Protein Albumin Globulin Albumin/Globulin Ratio Lipase Amiodarone Pending Desmethylamiodarone Pending 07/17/19 16:10 WBC RBC Hgb Hct MCV MCH MCHC RDW Std Deviation RDW Coeff of David Plt Count MPV Immature Gran % (Auto) Neut % (Auto) Lymph % (Auto) [place] % (Auto) Eos % (Auto) Baso % (Auto) Immature Gran # (Auto) Neut # (Auto) Lymph # (Auto) [place] # (Auto) Eos # (Auto) Baso # (Auto) Platelet Estimate Schistocytes Sodium Potassium Chloride Carbon Dioxide Anion Gap BUN Creatinine Est Cr Clr Drug Dosing Est GFR ( Amer) Est GFR (Non-Af Amer) BUN/Creatinine Ratio Glucose POC Glucose 173 H Calcium Magnesium Total Bilirubin Direct Bilirubin AST ALT Alkaline Phosphatase CK-MB (CK-2) Troponin I Total Protein Albumin Globulin Albumin/Globulin Ratio Lipase Amiodarone Desmethylamiodarone Medications Administered Current Inpatient Medications Amiodarone HCl (Cordarone) 400 mg PO BIDM [facility] Stop: 08/16/19 16:59 Aspirin (Ecotrin Ectab) 81 mg PO QAM JANEEN Stop: 08/16/19 08:59 Last Admin: 07/17/19 08:44 Dose: 81 mg Documented by: Atorvastatin Calcium (Lipitor) 40 mg PO HS JANEEN Stop: 08/15/19 20:59 Last Admin: 07/16/19 21:05 Dose: 40 mg Documented by: Carvedilol (Coreg) 12.5 mg PO BID JANEEN Stop: 08/15/19 20:59 Last Admin: 07/17/19 08:45 Dose: 12.5 mg Documented by: Cyanocobalamin (Vitamin B-12) 5,000 mcg SL QDL JANEEN Stop: 08/16/19 11:29 Last Admin: 07/17/19 13:59 Dose: 5,000 mcg Documented by: Dextrose (Dextrose 50%) 25 - 50 ml IV UD PRN; Protocol PRN Reason: Hypoglycemia Protocol Stop: 08/15/19 20:14 Enoxaparin Sodium (Lovenox) 40 mg SQ Q24H JANEEN Stop: 08/15/19 20:59 Last Admin: 07/16/19 21:04 Dose: 40 mg Documented by: Glucagon (Glucagen) 1 mg IM UD PRN; Protocol PRN Reason: Hypoglycemia Protocol Stop: 08/15/19 20:14 Glucose (Glucose 40%) 15 - 30 gm PO UD PRN; Protocol PRN Reason: Hypoglycemia Protocol Stop: 08/15/19 20:14 Glucose (Dex4 Glucose) 4 - 8 tabs PO UD PRN; Protocol PRN Reason: Hypoglycemia Protocol Stop: 08/15/19 20:14 Sodium Chloride (Nss 1000ml) 1,000 mls @ 60 mls/hr IV .[id number] [facility] Stop: 08/15/19 19:47 Last Admin: 07/17/19 13:59 Dose: 60 mls/hr Documented by: Insulin Aspart (Novolog Flexpen) 0 units SC ACHS [facility] Stop: 08/15/19 20:59 Last Admin: 07/17/19 08:42 Dose: 4 units Documented by: Lisinopril (Zestril) 20 mg PO QAM [facility] Stop: 08/16/19 08:59 Last Admin: 07/17/19 08:44 Dose: 20 mg Documented by: Metformin HCl (Glucophage) 1,000 mg PO BIDM [facility] Stop: 08/16/19 07:59 Last Admin: 07/17/19 08:44 Dose: 1,000 mg Documented by: Miscellaneous (Carbohydrates For Hypoglycemia) 15 - 30 gm PO UD PRN PRN Reason: Hypoglycemia Treatment Stop: 08/15/19 20:14 Multivitamins (Multivitamin Tab) 1 tab PO TIDM [facility] Stop: 08/16/19 07:59 Last Admin: 07/17/19 13:59 Dose: 1 tab Documented by: Sitagliptin Phosphate (Januvia) 50 mg PO BIDM [facility] Stop: 08/16/19 07:59 Last Admin: 07/17/19 08:44 Dose: 50 mg Documented by: Vitamin D (Vitamin D3) 2,000 units PO QDL [facility] Stop: 08/16/19 11:29 Last Admin: 07/17/19 13:58 Dose: 2,000 units Documented by: PG Care Time/CCT Total # of Minutes Spent Total Time Spent with Patient: Total time spent is greater than 50% in coordination of care (as documented) at patient's floor/unit and/or counseling patient:
[2019-07-17] MEDS: ENOXAPARIN INJ 40 MG/0.4 ML SYR SQ SCH (21:19)
[2019-07-17] MEDS: ATORVASTATIN 40 MG TAB PO SCH (21:20)
[2019-07-18] MEDS: SODIUM CHLORIDE 0.9% 1000ML 1,000 ML IV SCH (06:41)
[2019-07-18] MEDS: INSULIN ASPART 100 UNITS/ML 3 ML PEN SC SCH ×2 (07:54→12:02)
[2019-07-18] MEDS: SITAGLIPTIN PHOSPHATE 25 MG TAB PO SCH (07:55)
[2019-07-18] MEDS: METFORMIN HCL 500 MG TAB PO SCH (07:55)
[2019-07-18] MEDS: CARVEDILOL 12.5 MG TAB PO SCH (07:55)
[2019-07-18] MEDS: AMIODARONE 200 MG TAB PO SCH (07:56)
[2019-07-18] MEDS: LISINOPRIL 20 MG TAB PO SCH (07:56)
[2019-07-18] MEDS: MULTIVITAMIN TAB PO SCH ×2 (07:56→11:34)
[2019-07-18] MEDS: ASPIRIN 81 MG ECTAB PO SCH (07:57)
[2019-07-18] MEDS: CYANOCOBALAMIN (VITAMIN B-12) 2,500 MCG TAB.SUBL SL SCH (11:34)
[2019-07-18] MEDS: CHOLECALCIFEROL 1,000 UNITS TAB PO SCH (11:34)
--- NOTE | 2019-07-18 14:49 | Discharge Summary ---
Date of Service July 18, 2019 Admission HPI Per Admitting Provider The patient is 78-year-old male with history of ischemic cardiomyopathy, status post defibrillator. Today he presented to the emergency room after his defibrillator fired 2 times while he was mowing the lawn. He denies any chest pain. No shortness of breath, although he has history of dyspnea on exertion. His defibrillator was checked by the accredited pharmacy technician and it appears that patient has had more than 23 episodes of V. tach since 05/26/2019. Cardiology was notified and patient will be admitted under observation for further evaluation and management. Principal Diagnosis Recurrent episodes of Ventricular tachycardia, discharge of ICD Discharge Exam Constitutional WD/WN, vitals as above Eyes PERRL, conjunctivae normal, anicteric sclerae ENMT external ear and nose normal, oropharynx normal Neck trachea midline, no thyromegaly Respiratory normal respiratory effort, lungs clear to auscultation Cardiovascular RRR, no murmur, no edema Gastrointestinal (Abdomen) normal bowel sounds, soft, nontender, no hepatosplenomegaly Musculoskeletal no cyanosis or clubbing, extremities motor strength 5/5 Skin no rashes, warm and dry Neurologic patellar DTR's 2+ bilat, sensation intact and PERRL, EOMI, accommodation nl, no face palsy, no dysarthria Psychiatric A+Ox3, euthymic affect Lymphatic no cervical or axillary lymphadenopathy Discharge Data Allergies Allergy/AdvReac Type Severity Reaction Status Date / Time No Known Allergies Allergy . Verified 07/12/19 12:29 Consultations 07/16/19 18:18 ED Decision to Admit Stat 07/16/19 19:48 Consult Cardiology Routine Hospital Course (1) Non-sustained ventricular tachycardia: interrogation of pacer shows multiple episodes of V tach most have been paced out defibrillator went off twice though Amiodarone increased from 200mg BID to 400mg BID amiodarone drug levels ordered, results pending discussed with Dr. Mcnair at length he would like the patient to be on 400mg BID for 7 more days then resume 200mg BID he will see the patient in a week in the office advised the patient to refrain from strenuous activity he can take light walks but told him to hire someone to complete some landscaping that needs done (2) Ischemic cardiomyopathy: EF lower than in the past at 35% no signs of volume overload continue Coreg, Lisinopril Dr. Mcnair feels that there is both an ischemic and non-ischemic component no need for heart catheterization follow up in one week, Dr. Mcnair will likely replace Lisinopril with Entresto provided patient with instructions to weigh himself daily (3) Defibrillator discharge: due to V tach, happened twice follow up with Dr. Mcnair (4) Pacemaker: (5) CAD (coronary atherosclerotic disease): no ischemic changes on stress echo on 07/17 (6) Chronic kidney disease, stage III (moderate): Cr is stable (7) Obstructive sleep apnea: (8) On amiodarone therapy: increase dose due to V tach see above (9) Overweight: Total Time Total Time Spent Total Time Spent (In Minutes): 35 min Total Time Includes: Examination of the Patient, Discharge Planning, Medication Reconciliation and Communication With Other Providers (Dr. Mcnair) Discharge Plan Discharge Items Patient Disposition: Home - Self-Care Reason For Visit: CARDIAC ARRHYTHMIA Discharge Diagnosis: ICD firing due to Ventricular Tachycardia Chronic systolic heart failure Cardiomyopathy Condition on Discharge: Good Goals: continue on Amiodarone twice a day for the next week Activity: Per Instructions section Lifting: None Bathing: No limitations Exercise/Sports: Gradually increase as tolerated Exercise Comment: no more than light walks, allow heart to rest, limit stress Driving/Machine Use: Resume 3 days after discharge Non-emergency contact: Primary Care Provider and Material Dispatcher Call non-emergency contact if: you have any medication questions and your symptoms worsen Follow-up/Referrals: Josafat Kohler, DO [Primary Care Provider] - Diet: Heart Healthy Addtl Attending Provider Instructions: Medications: - AMIODARONE: continue the increased dose of 400mg twice a day for the next 7 days, then resume 200mg twice a day Ventricular tachycardia causing discharge of ICD interrogation of the ICD shows that you have had multiple episodes of ventricular tachycardia, most episodes were "paced" out but twice you required shocks Dr. Mcnair recommends increased dose of Amiodarone the next week continue on Coreg he would like to see you in the clinic in one week to further discuss plan Systolic heart failure, cardiomyopathy echocardiogram shows ejection fraction is 35%, slightly reduced compared to prior echocardiogram you examine euvolemic (normal volume status) continue on Coreg and Lisinopril Dr. Mcnair plans to discuss changing some medications when you follow up with him, specifically starting Entresto be sure to weigh yourself every day to make sure you are not gaining water weight typically recommend that you weigh yourself in the morning after you urinate, prior to eating breakfast if your weight is ever up by 2-3 lbs from your baseline then you should call Dr. Mcnair's office FOLLOW UP - Dr. Mcnair in one week Pending Studies at Discharge: Yes Studies:: amiodarone levels in blood Stand-Alone Forms: My [facility], Smoking Cessation Medications and DC Order Prescriptions: New amiodarone 200 mg Tablet 400 mg PO BIDM 7 Days Qty: 28 RF: 0 Continued lisinopril 20 mg tablet 20 mg PO QAM Qty: 90 RF: 3 carvedilol 12.5 mg tablet 12.5 mg PO BID Qty: 180 RF: 3 amiodarone 200 mg tablet 200 mg PO BID RF: 0 cholecalciferol (vitamin D3) 2,000 unit capsule 2,000 units PO QDL RF: 0 atorvastatin 40 mg tablet 40 mg PO HS RF: 0 Janumet 50-1,000 mg tablet 1 tab PO BIDM RF: 0 cyanocobalamin (vitamin B-12) 5,000 mcg Capsule 5,000 mcg PO QDL RF: 0 krill oil 500 mg Capsule 1,000 mg PO QDL RF: 0 aspirin [Aspir-81] 81 mg Tablet,Delayed Release (Dr/Ec) 81 mg PO QAM RF: 0 multivitamin tablet 1 tab PO TIDM RF: 0 Mucinex Sinus-Max Sev Congestn 5-325-200 mg tablet 1 tab PO QAM PRN (Reason: Allergy Symptoms) RF: 0 Discharge Orders: Discharge Order (Routine); Ordered 07/18/19 Ordered By: Steve Garcias/Other Patient Handouts: Amiodarone Hydrochloride Oral tablet Admission Data Admit Date/Time: 07/16/19 18:25 Attending Provider: Steve Mendoza Admit Provider: Jeffery Escalona Primary Care Provider: Josafat Kohler Other Providers: Jeffery Escalona ; Eben Gary Other Interventions: Discharge Summary Assessment (RN) Last Done: 07/18/19 13:52 DC Date/Time DO NOT enter until pt leaves facility: 07/18/19 14:43
--- NOTE | 2019-07-18 22:22 | Cardiology Progress Note ---
Date of Service July 18, 2019 Assessment & Plan (1) Paroxysmal ventricular tachycardia: He has had a flurry of ventricular tachycardia recently, most paced terminated but several receiving ICD shocks when antitachycardia pacing failed. It appears to be a monomorphic ventricular tachycardia. There does appear to be an exercise component to it, however there is no clear evidence of ischemia on stress testing therefore it could just be a high catecholamine state. Amiodarone was reduced relatively recently, which may have contributed to the recurrence of ventricular tachycardia now. An amiodarone level is pending. I would like to continue the higher dose (400 mg twice daily) for a week while we wait the level to return, and then we should decrease it to 400 mg daily as long as the level is not high. (2) CAD (coronary atherosclerotic disease): He has a history of coronary artery disease, he does not have typical anginal symptoms but there does seem to be an exertional component to his ventricular tach based on the stress test however it does not appear to be ischemia. Nevertheless increase beta-blockade may help over the long run. (3) Cardiac defibrillator in place: His ICD is functioning well, it was interrogated and evaluated on admission here and I have reviewed his ventricular tachycardia and his settings which seem to be appropriate. Battery life is good. (4) Fatigue: He is describing fatigue which is worse lately than had been in the past. This is probably due to progressive left ventricular dysfunction. . (5) Ischemic cardiomyopathy: He has an ischemic cardiomyopathy, it has worsened recently. He is not on optimal medical therapy and we should try to get him there. I do not want to make too many changes all at once and with his increasing amiodarone I would prefer to wait to change his heart failure medications. I will be seeing him in the office in about a week, at that point I would like to try to increase his carvedilol which may also help with the ventricular tachycardia, and subsequently I would like to switch to Entresto. Subjective He is feeling well, no palpitations, no side effects on the increased amiodarone. Physical Exam Physical Exam: Constitutional: Alert, cooperative and in no distress. HEENT: Unremarkable Neck: No jugular venous distention, carotid pulses are normal and equal bilaterally without bruits. Pulmonary: Clear to auscultation bilaterally. Cardiac: Regular rhythm with no murmur, gallop or rub. Abdomen: Soft, nontender with normal bowel sounds. Extremities: No edema. Distal pulses intact. Neurologic: No focal findings. Gait is steady. Skin: The device site is well-healed without erythema, swelling or tenderness. No rash, ecchymoses or petechiae. Results & Data Vital Signs (Past 12 Hours) Vital Signs Temp Pulse Resp BP BP Pulse Ox 07/18/19 13:52 36.9 C 54 L 20 124/49 L 112/49 L 95 07/18/19 11:59 36.9 C 54 L 20 124/49 L 95 Laboratory Results Abnormal lab results 07/18/19 07/18/19 Range/Units 07:09 11:13 POC Glucose 138 H 127 H (70-99) Diagnostic Findings Stress test: No clear evidence of ischemia although target heart rate was not reached. Worsening of left ventricular function. Telemetry: Sinus rhythm, no ventricular tachycardia PG Care Time/CCT Total # of Minutes Spent Total Time Spent with Patient: Total time spent is greater than 50% in coordination of care (as documented) at patient's floor/unit and/or counseling patient:
== END 2019-07-18 14:43 | disposition home or self-care (01) | DRG 309 ==
LOC: ED 16:18 → 2E 18:25 → SUATTDRO 18:25 → 2E 19:35

== ENCOUNTER 2021-10-25 12:20 | Inpatient (IN) ==
[2021-10-25] MEDS ORDERED: ONDANSETRON INJ 2 MG/ML 2 ML VIAL IV STA (13:22)
[2021-10-25] MEDS ORDERED: SODIUM CHLORIDE 0.9% 1000ML 1,000 ML IV SCH (13:30)
--- NOTE | 2021-10-25 13:40 | XRay Report ---
XR chest 1V portable CLINICAL HISTORY: weakness TECHNIQUE: Single frontal radiograph of the chest was obtained. Comparison: Comparison is made to chest and abdomen radiographs 09/02/2020 FINDINGS: Pacemaker defibrillator is seen. Multiple fractured median sternotomy wires are noted. The cardiomedi astinal silhouette is stable. Reticular interstitial changes are seen in the bilateral lower lungs. N o evidence of acute airspace disease. No evidence of pleural effusion or pneumothorax. Old healed rib fractures are seen. IMPRESSION: Stable interstitial changes in bilateral lower lungs may represent atelectasis or fibrosis. No eviden ce of acute abnormality. ACT 112: Negative or not required by law. Electronically signed by: Steve Lomeli M.D. 10/25/2021 1:39 PM
--- NOTE | 2021-10-25 13:54 | CT Scan Report ---
CT head/brain wo con CLINICAL HISTORY: ed weak Technique: Contiguous axial CT images of the head were acquired from the base of the skull to the patti pierce without intravenous contrast administration. Images were viewed in brain, subd[facility] . Automated dose lowering techniques and/or adjustment according to patient size were utilized for this exam. Comparison: Comparison is made to CT head 09/01/2020 Findings: Areas of decreased attenuation are present in the periventricular and subcortical white matter bilate rally consistent with small vessel ischemic disease. Generalized cerebral atrophy with commensurate e nlargement of the ventricles, sulci, and cisterns is also present. There is no acute intracranial hem orrhage or evidence of acute territorial infarction. No shift of the midline structures, mass effect, or extra-axial abnormalities are shown. Atherosclerotic calcifications are present in the intracran ial segments of the internal carotid arteries. Imaged portions of the paranasal sinuses and mastoid air cells are clear. The orbits appear normal. There are no acute fractures of the calvaria or scalp swelling. Impression: No acute intracranial hemorrhage, no evidence of acute territorial infarction or other acute intracra nial disease process. ACT 112: Negative or not required by law. Electronically signed by: Steve Lomeli M.D. 10/25/2021 1:53 PM
[2021-10-25 14:01] LABS: Basophils # (auto) 0.01 K/uL (0-0.2); Basophils % (auto) 0.2 %; Eosinophils % (auto) 3.4 %; Hemoglobin 12.6 g/dL (14.0-18.0); Immature Granulocytes # (auto) 0.03 K/uL (0.00-0.02); Immature Granulocytes % (auto) 0.5 %; Lymphocytes # (auto) 1.01 K/uL (1.2-3.4); Lymphocytes % (auto) 17.4 %; Mean Corpuscular Hemoglobin 32.9 pg (25-34); Mean Corpuscular Hgb Conc 33.2 g/dL (32-36); Mean Corpuscular Volume 99.2 fL (80-100); Monocytes # (auto) 0.94 K/uL (0.11-0.59); Monocytes % (auto) 16.2 %; Neutrophils # (auto) 3.62 K/uL (1.4-6.5); Neutrophils % (auto) 62.3 %; Platelet Count 94 K/uL (130-400); Platelet Estimate Decreased (Normal); RDW Coefficient of Variation 16.7 % (11.5-14.5); RDW Standard Deviation 59.5 fL (36.4-46.3); Red Blood Count 3.83 M/uL (4.7-6.1); White Blood Count 5.81 K/uL (4.8-10.8)
[2021-10-25 14:22] LABS: Troponin I < 0.03 ng/ml (0-0.04)
[2021-10-25 14:43] LABS: Alanine Aminotransferase 62 U/L (7-52); Albumin Globulin Ratio 0.7 (0.9-2); Albumin Level 3.3 gm/dl (3.4-5.0); Alkaline Phosphatase 101 U/L (34-104); Anion Gap 6 (3-11); Aspartate Aminotransferase 72 U/L (13-39); BUN Creatinine Ratio 13.9 (10-20); Bilirubin,Total 0.7 mg/dl (0.2-1.0); Blood Urea Nitrogen 46 mg/dl (6-23); Calcium 12.2 mg/dl (8.5-10.1); Carbon Dioxide 25 mmol/L (21-32); Chloride 104 mmol/L (98-107); Creatinine Clr Calc Pharmacy 19.9 ml/min; Est GFR (African American) 19.5 ml/min; Est GFR (Non-African American) 16.8 ml/min; Glucose 122 mg/dl (70-99(Fasting)); Potassium 4.1 mmol/L (3.5-5.1); Sodium 135 mmol/L (136-145); Total Protein 7.8 gm/dl (6.0-8.3)
[2021-10-25 14:54] LABS: Appearance Urine Clear (Clear); Bilirubin Urine Negative (Negative); Blood Urine Negative (Negative); Color Urine Dark Yellow; Glucose Urine UA Negative (Negative); Ketones Urine Negative (Negative); Leukocyte Esterase Urine Negative (Negative); Nitrite Urine Negative (Negative); Protein Urine Negative (Negative); Specific Gravity Urine 1.016 (1.000-1.030); Urobilinogen Urine Negative (Negative); pH Urine 5.5 (4.5-7.5)
[2021-10-25 15:19] LABS: Globulin 4.5 gm/dl (2.5-4.0)
--- NOTE | 2021-10-25 15:38 | Emergency Department Note ---
History of Present Illness General Chief complaint: TIA Symptoms Stated complaint: REF FOR POSS MINI STROKE, FALL SUNDAY, TIA SYMPTOM Time Seen by Provider: 10/25/21 13:03 History of Present Illness Maximum Pain Intensity: 1 80-year-old male presents to the ED with a chief complaint of feeling a little dizzy. He also states that he is having some difficulty recalling some words and speaking slower than usual. He states that he seems to be very shaky when he is on his feet and has fallen 3 times since last . The patient states that he fell on when he slipped on the ice. On Sunday he fell twice by losing his balance. He states that he did not hit his head. He does complain of a mild frontal headache, however. Denies any upper respiratory symptoms. He has had some diarrhea for the past week or so. It seems to be under somewhat control with Pepto-Bismol and Imodium. He states that he has a little bit of nausea and decreased p.o. intake because of poor appetite. He has generalized weakness as well. He did vomit once in the emergency department shortly after arrival Home Medications Medication Instructions Recorded Confirmed Type cyanocobalamin (vitamin B-12) 5,000 mcg PO DAILY 11/13/18 10/25/21 History 5,000 mcg capsule cholecalciferol (vitamin D3) 50 2,000 units PO DAILY 03/03/19 10/25/21 History mcg (2,000 unit) capsule multivitamin 1 tab PO BID tab 03/04/19 10/25/21 History aspirin 81 mg tablet,delayed 81 mg PO DAILY 07/05/20 10/25/21 History release amiodarone 200 mg tablet 200 mg PO BID tab 10/29/20 10/25/21 History lutein 25 mg-zeaxanthin 5 mg 1 cap PO HS 11/05/20 10/25/21 History capsule tamsulosin 0.4 mg capsule 0.4 mg PO HS 11/05/20 10/25/21 History hydrocodone 5 mg-acetaminophen 325 1 tab PO Q4H PRN #20 tab 12/31/20 10/25/21 Rx mg tablet liraglutide 0.6 mg/0.1 mL (18 mg/3 1.2 mg SQ QAM #18 ml 04/21/21 10/25/21 Rx mL) subcutaneous pen injector (Victoza 2-Ronen) pen needle,diabetic dual safty 30 #100 ea 04/22/21 10/25/21 Rx gauge x 3/16" (BD AutoShield Duo Pen Needle) sitagliptin 50 mg-metformin 1,000 1 tab PO BID #180 tab 05/20/21 10/25/21 Rx mg tablet (Janumet) atorvastatin 40 mg tablet 40 mg PO HS #90 tab 05/31/21 10/25/21 Rx krill oil 500 mg capsule 500 mg PO DAILY cap 07/18/21 10/25/21 History triamterene 37.5 1 cap PO QAM #90 cap 08/15/21 10/25/21 Rx mg-hydrochlorothiazide 25 mg capsule carvedilol 12.5 mg tablet 12.5 mg PO BID #180 tab 08/29/21 10/25/21 Rx gabapentin 100 mg capsule 100 mg PO HS #90 cap 10/19/21 10/25/21 Rx Allergies Allergy/AdvReac Type Severity Reaction Status Date / Time No Known Drug Allergies Allergy Verified 10/25/21 14:22 Past Med/Surg History Medical History Atrial flutter Presented to the emergency room on August 16, 2020 after syncopal episode; arrhythmia ID'd based on his ICD evaluation, converted with an ICD shock and "seems to have remained in sinus rhythm. His current interrogation demonstrates no further atrial flutter since that shock." (Per cardio note 09/20/20) Benign prostatic hyperplasia CAD (coronary artery disease) H/O IN 1988, S/P CABG 1998 Chronic kidney disease, stage III (moderate) Depression HX Diabetes mellitus, type 2 H/O acute myocardial infarction 1988 History of ventricular fibrillation s/p ICD IONE (hard of hearing) Hyperlipidemia Hypertension patient denies having HTN/REPORTS HAS HAD LOW BLOOD PRESSURE OFF AND ON ICD (implantable cardioverter-defibrillator) in place INITIALLY IMPLANTED 2002 ; GENERATOR CHANGE 2011 AND DECEMBER 02, 2019- LAST SHOCK 07/2020 Ischemic cardiomyopathy (Unknown) S/p ICD implantation EF 40% per most recent echo 08/2020 Obstructive sleep apnea On CPAP Retroperitoneal lymphadenopathy SNHL (sensorineural hearing loss) Surgical History Difficult airway for intubation PT REPORTS WAS TOLD PT WAS DIFFICULT INTUBATION - UNKNOWN FURTHER DETAILS - ? SURGERY WAS TOLD THIS- POSSIBLY BYPASS SURGERY PER -PER PT 30+ YRS AGO? H/O tympanomastoidectomy RIGHT 11/12/20 [facility] History of adenoidectomy History of cardiac cath PRIOR TO HEART SURGERY, [facility] - NO STENT(S) History of cataract surgery R/L History of colonoscopy History of coronary artery bypass graft 3 [facility]SE[facility] 1999 History of cystoscopy REMOVAL KIDNEY STONE History of ear surgery left tympanomastoidectomy on 12/31/20 - Dr. Lynn History of laminectomy History of nasal septoplasty History of tonsillectomy and adenoidectomy Implantation of internal cardiac defibrillator (05/02/12) S/P ICD (internal cardiac defibrillator) procedure Placed 2002, generator change 2011 and 2019 Family History Mother Breast cancer Family history of diabetes mellitus Grandmother (Maternal) No problems noted. Grandmother (Paternal) Myocardial infarction Breast cancer Father Myocardial infarction Brother Brain cancer Sister Cancer Denies family history of Ovarian cancer Prostate cancer Colorectal cancer Social History Smoking Status: Former smoker Tobacco Type: Cigarettes Second Hand Exposure: No; Hx Alcohol Use: No Hx Substance Use: No Preferred Language: Amharic Communication Ability: Effective Visual Impairment: No Limitations Hearing Ability: Normal Candy Cutter Machine Required: No Beliefs That Will Affect Care: None marital status: Current Living Situation: Spouse current occupational status: retired Feels Safe at Home: Yes Childhood Exposure to Second-Hand Smoke: No Diet Comment: "go low" Dental Care, Regularly: Yes Physical Activity Frequency: 1-2 Times per Week Seatbelt Use: always Sunscreen Use: No Assistive Devices: None Review of Systems A total of 10 systems reviewed and were otherwise negative Physical Exam Vital Signs Vital Signs - 24 hr 10/25/21 12:22 10/25/21 14:58 Temperature 36.5 C Temperature Source Temporal Artery Scan Pulse Rate 56 L Respiratory Rate 18 Blood Pressure 121/73 Blood Pressure Mean 89 Pulse Oximetry 99 Oxygen Delivery Method Room Air Room Air Sepsis Recent Fever Within 48 Hours No Sepsis New/Unexplained Change in Mental Status No Sepsis Action Taken by Nursing No Action Required CONSTITUTIONAL/VITAL SIGNS: Reviewed / noted above. GENERAL: Non-toxic in appearance. INTEGUMENTARY: Warm, dry, and [place]. HEAD: Normocephalic. EYES: without scleral icterus or trauma. ENT/OROPHARYNX: clear and moist. LYMPHADENOPATHY/NECK: Is supple without lymphadenopathy or meningismus. RESPIRATORY: Clear to auscultation bilaterally. No increased work of breathing. CARDIOVASCULAR: Regular rate and rhythm. GI/ABDOMEN: Soft and nontender. No organomegaly or pulsatile mass. EXTREMITIES: Warm and well perfused. BACK: No CVA tenderness. NEUROLOGICAL: Intact without focal deficits. PSYCHIATRIC: normal affect. MUSCULOSKELETAL: Normally developed with good muscle tone. TRIAGE NURSING DOCUMENTATION REVIEWED. Course Administered Medications Discontinued Medications Ondansetron HCl (Ondansetron Inj 2 Mg/Ml 2 Ml Vial) 4 mg IV NOW STA Stop: 10/25/21 13:23 Last Admin: 10/25/21 13:42 Dose: 4 mg Documented by: [id number] Medical Decision Making Differential Diagnosis Differential includes acute coronary syndrome, myocardial infarction, CVA, TIA, anemia, infection, pneumonia, UTI, pyelonephritis, poor nutrition, dehydration, electrolyte disturbance,hypoglycemia. Medical Records Attestation: I reviewed the patient's medical records. Home Medications Current Medication List: was personally reviewed by me Laboratory Data Attestation: I reviewed the patient's lab results. Result diagrams: 10/25/21 12:44 10/25/21 12:44 Lab Results 10/25/21 10/25/21 10/25/21 Range/Units 12:44 12:44 12:44 WBC 5.81 (4.8-10.8) K/uL RBC 3.83 L (4.7-6.1) M/uL Hgb 12.6 L (14.0-18.0) g/dL Hct 38.0 L (42-52) % MCV 99.2 (80-100) fL MCH 32.9 (25-34) pg MCHC 33.2 (32-36) g/dL RDW Std Deviation 59.5 H (36.4-46.3) fL RDW Coeff of David 16.7 H (11.5-14.5) % Plt Count 94 L (130-400) K/uL Immature Gran % (Auto) 0.5 % Neut % (Auto) 62.3 % Lymph % (Auto) 17.4 % [place] % (Auto) 16.2 % Eos % (Auto) 3.4 % Baso % (Auto) 0.2 % Neut # (Auto) 3.62 (1.4-6.5) K/uL Lymph # (Auto) 1.01 L (1.2-3.4) K/uL [place] # (Auto) 0.94 H (0.11-0.59) K/uL Eos # (Auto) 0.20 (0-0.5) K/uL Baso # (Auto) 0.01 (0-0.2) K/uL Immature Gran # (Auto) 0.03 H (0.00-0.02) K/uL Platelet Estimate Decreased L (Normal) Sodium 135 L (136-145) mmol/L Potassium 4.1 (3.5-5.1) mmol/L Chloride 104 (98-107) mmol/L Carbon Dioxide 25 (21-32) mmol/L Anion Gap 6 (3-11) BUN 46 H (6-23) mg/dl Creatinine 3.30 H (0.6-1.4) mg/dl Est Cr Clr Drug Dosing 19.9 ml/min Est GFR ( Amer) 19.5 ml/min Est GFR (Non-Af Amer) 16.8 ml/min BUN/Creatinine Ratio 13.9 (10-20) Glucose 122 H (70-99(Fasting)) mg/dl Calcium 12.2 H* (8.5-10.1) mg/dl Total Bilirubin 0.7 (0.2-1.0) mg/dl AST 72 H (13-39) U/L ALT 62 H (7-52) U/L Alkaline Phosphatase 101 (34-104) U/L Troponin I < 0.03 (0-0.04) ng/ml Total Protein 7.8 (6.0-8.3) gm/dl Albumin 3.3 L (3.4-5.0) gm/dl Globulin 4.5 H (2.5-4.0) gm/dl Albumin/Globulin Ratio 0.7 L (0.9-2) TSH 3.221 (0.300-4.500) uIu/ml Urine Color Urine Appearance (Clear) Urine pH (4.5-7.5) Ur Specific Bradley (1.000-1.030) Urine Protein (Negative) Urine Glucose (UA) (Negative) Urine Ketones (Negative) Urine Blood (Negative) Urine Nitrite (Negative) Urine Bilirubin (Negative) Urine Urobilinogen (Negative) Ur Leukocyte Esterase (Negative) 10/25/21 Range/Units 14:20 WBC (4.8-10.8) K/uL RBC (4.7-6.1) M/uL Hgb (14.0-18.0) g/dL Hct (42-52) % MCV (80-100) fL MCH (25-34) pg MCHC (32-36) g/dL RDW Std Deviation (36.4-46.3) fL RDW Coeff of David (11.5-14.5) % Plt Count (130-400) K/uL Immature Gran % (Auto) % Neut % (Auto) % Lymph % (Auto) % [place] % (Auto) % Eos % (Auto) % Baso % (Auto) % Neut # (Auto) (1.4-6.5) K/uL Lymph # (Auto) (1.2-3.4) K/uL [place] # (Auto) (0.11-0.59) K/uL Eos # (Auto) (0-0.5) K/uL Baso # (Auto) (0-0.2) K/uL Immature Gran # (Auto) (0.00-0.02) K/uL Platelet Estimate (Normal) Sodium (136-145) mmol/L Potassium (3.5-5.1) mmol/L Chloride (98-107) mmol/L Carbon Dioxide (21-32) mmol/L Anion Gap (3-11) BUN (6-23) mg/dl Creatinine (0.6-1.4) mg/dl Est Cr Clr Drug Dosing ml/min Est GFR ( Amer) ml/min Est GFR (Non-Af Amer) ml/min BUN/Creatinine Ratio (10-20) Glucose (70-99(Fasting)) mg/dl Calcium (8.5-10.1) mg/dl Total Bilirubin (0.2-1.0) mg/dl AST (13-39) U/L ALT (7-52) U/L Alkaline Phosphatase (34-104) U/L Troponin I (0-0.04) ng/ml Total Protein (6.0-8.3) gm/dl Albumin (3.4-5.0) gm/dl Globulin (2.5-4.0) gm/dl Albumin/Globulin Ratio (0.9-2) TSH (0.300-4.500) uIu/ml Urine Color Dark Yellow Urine Appearance Clear (Clear) Urine pH 5.5 (4.5-7.5) Ur Specific [place] 1.016 (1.000-1.030) Urine Protein Negative (Negative) Urine Glucose (UA) Negative (Negative) Urine Ketones Negative (Negative) Urine Blood Negative (Negative) Urine Nitrite Negative (Negative) Urine Bilirubin Negative (Negative) Urine Urobilinogen Negative (Negative) Ur Leukocyte Esterase Negative (Negative) Imaging Data Radiologist's Impression: Chest X-Ray 10/25/21 13:18 XR chest 1V portable CLINICAL HISTORY: weakness TECHNIQUE: Single frontal radiograph of the chest was obtained. Comparison: Comparison is made to chest and abdomen radiographs 09/02/2020 FINDINGS: Pacemaker defibrillator is seen. Multiple fractured median sternotomy wires are noted. The cardiomediastinal silhouette is stable. Reticular interstitial changes are seen in the bilateral lower lungs. No evidence of acute airspace disease. No evidence of pleural effusion or pneumothorax. Old healed rib fractures are seen. IMPRESSION: Stable interstitial changes in bilateral lower lungs may represent atelectasis or fibrosis. No evidence of acute abnormality. ACT 112: Negative or not required by law. Electronically signed by: Steve Lomeli M.D. 10/25/2021 1:[address] 10/25/21 13:18 CT head/brain wo con CLINICAL HISTORY: ed weak Technique: Contiguous axial CT images of the head were acquired from the base of the skull to the vertex without intravenous contrast administration. Images were viewed in brain, subdural and bone windows. Automated dose lowering techniques and/or adjustment according to patient size were utilized for this exam. Comparison: Comparison is made to CT head 09/01/2020 Findings: Areas of decreased attenuation are present in the periventricular and subcortical white matter bilaterally consistent with small vessel ischemic disease. Generalized cerebral atrophy with commensurate enlargement of the ventricles, sulci, and cisterns is also present. There is no acute intracranial hemorrhage or evidence of acute territorial infarction. No shift of the midline structures, mass effect, or extra-axial abnormalities are shown. Atherosclerotic calcifications are present in the intracranial segments of the internal carotid arteries. Imaged portions of the paranasal sinuses and mastoid air cells are clear. The orbits appear normal. There are no acute fractures of the calvaria or scalp swelling. Impression: No acute intracranial hemorrhage, no evidence of acute territorial infarction or other acute intracranial disease process. ACT 112: Negative or not required by law. Electronically signed by: Steve Lomeli M.D. 10/25/2021 1:53 PM ECG Data Attestation: I personally reviewed and interpreted this ECG as follows: Additional Comments: Twelve-lead EKG: Per my interpretation there is a sinus bradycardia rate of 56. Occasional PVC. No ST elevation. Normal QTC. MDM Narrative 80-year-old male with a chief complaint of generalized weakness, decreased appetite, diarrhea for the past week had some nausea and vomiting. CT scan of the brain and chest x-ray did not show acute process. EKG shows a sinus rhythm at a rate of 56 with some occasional PVCs. CBC showed a slightly low platelet count. No cerumen anemia Troponin is negative. Chemistry panel was unremarkable with exception of a hypercalcemia. Urinalysis did not show obvious infection. Because of the patient's symptoms and hypercalcemia, I feel be beneficial to bring the patient in for further evaluation and care. Hospitalist will see the patient. Impression & Plan Hypercalcemia, Weakness, Fall, Anorexia, Diarrhea Discharge Plan Visit Data Chief Complaint: TIA Symptoms Stated Complaint: REF FOR POSS MINI STROKE, FALL SUNDAY, TIA SYMPTOM ED Provider: Lc Lew Discharge Problem: Hypercalcemia, Weakness, Fall, Anorexia, Diarrhea Patient Disposition: Being Evaluated by Hospitalist Forms Stand Alone Forms: My [facility] Prescriptions Prescriptions: No Action Victoza 2-Ronen 0.6 mg/0.1 mL (18 mg/3 mL) pen injector 1.2 mg SQ QAM Qty: 18 RF: 5 (DME) BD AutoShield Duo Pen Needle 30 gauge x 3/16" needle See Rx Instructions .ROUTE .MEDSUPPLY Qty: 100 RF: 1 Janumet 50-1,000 mg tablet 1 tab PO BID Qty: 180 RF: 1 atorvastatin 40 mg tablet 40 mg PO HS Qty: 90 RF: 1 triamterene-hydrochlorothiazid 37.5-25 mg capsule 1 cap PO QAM Qty: 90 RF: 3 carvedilol 12.5 mg tablet 12.5 mg PO BID Qty: 180 RF: 3 COVID-19 vacc,mRNA(Pfizer)(PF) 30 mcg/0.3 mL suspension for reconstitution 0.3 ml IM ONCE Qty: 0.3 RF: 0 amiodarone 200 mg tablet 200 mg PO BID RF: 0 cholecalciferol (vitamin D3) 2,000 unit capsule 2,000 units PO DAILY RF: 0 gabapentin 100 mg capsule 100 mg PO HS Qty: 90 RF: 1 tamsulosin 0.4 mg capsule 0.4 mg PO HS RF: 0 lutein-zeaxanthin 25-5 mg capsule 1 cap PO HS RF: 0 cyanocobalamin (vitamin B-12) 5,000 mcg Capsule 5,000 mcg PO DAILY RF: 0 multivitamin tablet 1 tab PO BID RF: 0 krill oil 500 mg capsule 500 mg PO DAILY RF: 0 aspirin 81 mg Tablet,Delayed Release (Dr/Ec) 81 mg PO DAILY RF: 0 hydrocodone-acetaminophen 5-325 mg tablet 1 tab PO Q4H PRN (Reason: pain) Qty: 20 RF: 0 Referrals Referrals: Josafat Kohler, [Primary Care Provider] -
--- NOTE | 2021-10-25 16:11 | History & Physical Report ---
Date of Service October 25, 2021 Assessment & Plan (1) Hypercalcemia: Plan: I believe his recent unsteadiness, dizziness, GI symptoms, feeling unwell, etc are from the high calcium levels. Suspect that the hypercalcemia is due to lymphoma. He is on HCTZ but has been on such for a long time and all previous calcium levels were normal. Doubt hyperparathyroidism, but will check intact PTH level. He has been losing weight with poor appetite. Again suspect these symptoms are from lymphoma. Plan - * NS hydration * calcitonin SC, 4units/kg, x 1 now * zometa 4mg IV x 1 * consider repeat calcitonin if effective * consider lasix if any volume overload * repeat BMP tonight * then another BMP in am * hold HCTZ * hold vitamin D supplements (2) Lymphoma: Plan: In 2020 he had imaging studies that were highly concerning for lymphoma. He has seen Dr Leon, and over the last few months he has simply been monitored carefully as opposed to starting treatment. Will check CT chest/abd/pelvis to determine if there is lymphoma progression. Will consult Dr Leon from oncology in the am. (3) Weakness: Plan: 2nd to #1. Perhaps also due to #2. Treat the high calcium. PT, OT when able. (4) Acute kidney injury: Plan: u/a is bland thus not suggestive of ATN. CT abd/pelvis does not show obstruction from kidney stones, BPH, or retroperitoneal lymph nodes. The SHARNO may simply be pre-renal from dehydration as he reports poor appetite/liquid intake of late as well as diarrhea. Further, he is on HCTZ. Hydrate with NS overnight BMP tonight, then again tomorrow. Treat high calcium. Hold HCTZ. (5) Chronic renal failure, stage 3b: Plan: baseline CrCl 30s/low 40s baseline Cr 1.6 to 1.8; today >3; see above (6) Fall: Plan: Suspect 2nd to rising calcium levels. PT/OT while here. (7) Severe protein-calorie malnutrition: Plan: 10kg of weight loss in the last 6-12 months. suspect 2nd to lymphoma. (8) Prolonged QT interval: Plan: likely due to amiodarone. but will check magnesium level in am. K level wnl. (9) Atrial flutter: Plan: continue beta lina continue amiodarone he is not on chronic anticoagulation (10) CAD (coronary atherosclerotic disease): Plan: no ischemic symptoms at this time hold statin due to transaminitis cont coreg cont asa (11) Diabetes mellitus: Plan: hold home meds loose sliding scale with novolog last A1c was February 2021 and was 7.5% (12) Paroxysmal ventricular tachycardia: Plan: continue amiodarone has ICD in place as well could consider an interrogation to ensure that dysrhythmia, etc is not contributing to his fatigue, etc (13) Transaminitis: Plan: etiology? hold statin trend (14) DVT prophylaxis: Plan: heparin 5000 BID History of Present Illness Chief Complaint: fatigue, poor appetite, falls/balance issues, weight loss Primary Care Provider: Josafat Kohler, DO Sal 80yo male with an extensive heart history including acute TX in 1988, CABG 3-vessel in 1998, T2DM, v. fib s/p AICD, kidney stones, CKD stage 3, aflutter, and recent dx of lymphoma in 2020 presents with difficulty with balance over the last 4-5 days, multiple episodes of nearly falling due to the imbalance, weakness, fatigue, weight loss, nausea, vague abdominal discomfort, and an episode of emesis in the ER today. Symptoms of fatigue/weight loss began in the last 2-3 months and have worsened. He is now down to <200 pounds which is the lowest he has been in a long time. He has been followed by Dr Leon for lymphoma and last set of CT scans/PET was in late 2020. He hadn't had a biopsy but lymphoma was suspected based on his CT scans. Denies any change in his chronic paresthesias. 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 Denies any fevers, chills, nightsweats. Today in the ER his total calcium level was noted to be 12.2. Previous levels were all normal. Allergies Allergy/AdvReac Type Severity Reaction Status Date / Time No Known Drug Allergies Allergy Verified 10/25/21 14:22 Home Medications Medication Instructions Recorded Confirmed Type cyanocobalamin (vitamin B-12) 5,000 mcg PO DAILY 11/13/18 10/25/21 History 5,000 mcg capsule cholecalciferol (vitamin D3) 50 2,000 units PO DAILY 03/03/19 10/25/21 History mcg (2,000 unit) capsule multivitamin 1 tab PO BID tab 03/04/19 10/25/21 History aspirin 81 mg tablet,delayed 81 mg PO DAILY 07/05/20 10/25/21 History release amiodarone 200 mg tablet 200 mg PO BID tab 10/29/20 10/25/21 History lutein 25 mg-zeaxanthin 5 mg 1 cap PO HS 11/05/20 10/25/21 History capsule tamsulosin 0.4 mg capsule 0.4 mg PO HS 11/05/20 10/25/21 History hydrocodone 5 mg-acetaminophen 325 1 tab PO Q4H PRN #20 tab 12/31/20 10/25/21 Rx mg tablet liraglutide 0.6 mg/0.1 mL (18 mg/3 1.2 mg SQ QAM #18 ml 04/21/21 10/25/21 Rx mL) subcutaneous pen injector ([employer] 2-Ronen) pen needle,diabetic dual safty 30 #100 ea 04/22/21 10/25/21 Rx gauge x 3/16" (BD AutoShield Duo Pen Needle) sitagliptin 50 mg-metformin 1,000 1 tab PO BID #180 tab 05/20/21 10/25/21 Rx mg tablet (Janumet) atorvastatin 40 mg tablet 40 mg PO HS #90 tab 05/31/21 10/25/21 Rx krill oil 500 mg capsule 500 mg PO DAILY cap 07/18/21 10/25/21 History triamterene 37.5 1 cap PO QAM #90 cap 08/15/21 10/25/21 Rx mg-hydrochlorothiazide 25 mg capsule carvedilol 12.5 mg tablet 12.5 mg PO BID #180 tab 08/29/21 10/25/21 Rx gabapentin 100 mg capsule 100 mg PO HS #90 cap 10/19/21 10/25/21 Rx Past Med/Surg History Medical History Atrial flutter Presented to the emergency room on August 16, 2020 after syncopal episode; arrhythmia ID'd based on his ICD evaluation, converted with an ICD shock and "seems to have remained in sinus rhythm. His current interrogation demonstrates no further atrial flutter since that shock." (Per cardio note 09/20/20) Benign prostatic hyperplasia CAD (coronary artery disease) H/O TX 1988, S/P CABG 1998 Chronic kidney disease, stage III (moderate) Depression HX Diabetes mellitus, type 2 H/O acute myocardial infarction 1988 History of ventricular fibrillation s/p ICD [place] (hard of hearing) Hyperlipidemia Hypertension patient denies having HTN/REPORTS HAS HAD LOW BLOOD PRESSURE OFF AND ON ICD (implantable cardioverter-defibrillator) in place INITIALLY IMPLANTED 2002 ; GENERATOR CHANGE 2011 AND DECEMBER 02, 2019- LAST SHOCK 07/2020 Ischemic cardiomyopathy (Unknown) S/p ICD implantation EF 40% per most recent echo 08/2020 Obstructive sleep apnea On CPAP Retroperitoneal lymphadenopathy SNHL (sensorineural hearing loss) Surgical History Difficult airway for intubation PT REPORTS WAS TOLD PT WAS DIFFICULT INTUBATION - UNKNOWN FURTHER DETAILS - ? SURGERY WAS TOLD THIS- POSSIBLY BYPASS SURGERY PER -PER PT 30+ YRS AGO? H/O tympanomastoidectomy RIGHT 11/12/20 [facility] History of adenoidectomy History of cardiac cath PRIOR TO HEART SURGERY, [facility] - NO STENT(S) History of cataract surgery R/L History of colonoscopy History of coronary artery bypass graft 3 VESSELS 1998 History of cystoscopy REMOVAL KIDNEY STONE History of ear surgery left tympanomastoidectomy on 12/31/20 - Dr. Lynn History of laminectomy History of nasal septoplasty History of tonsillectomy and adenoidectomy Implantation of internal cardiac defibrillator (05/02/12) S/P ICD (internal cardiac defibrillator) procedure Placed 2002, generator change 2011 and 2019 Family History Mother Breast cancer Family history of diabetes mellitus Grandmother (Maternal) No problems noted. Grandmother (Paternal) Myocardial infarction Breast cancer Father Myocardial infarction Brother Brain cancer Sister Cancer Denies family history of Ovarian cancer Prostate cancer Colorectal cancer Social History (Updated 10/25/21 @ 23:05 by Bola Marsh) Smoking Status: Former smoker Tobacco Type: Cigarettes packs per day: 2; Years Smoked: 31; Second Hand Exposure: No; Hx Alcohol Use: Yes (stopped use in 1976) Hx Substance Use: No Preferred Language: Kyrgyz Communication Ability: Effective Visual Impairment: No Limitations Hearing Ability: Normal Process Safety Engineer Required: No Beliefs That Will Affect Care: None marital status: Current Living Situation: Spouse current occupational status: 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 How many Children do You have: 2 Other Information That Helps Us Care for You: No Feels Safe at Home: Yes Childhood Exposure to Second-Hand Smoke: No Diet Comment: "go low" Dental Care, Regularly: Yes Physical Activity Frequency: 1-2 Times per Week Seatbelt Use: always Sunscreen Use: No Assistive Devices: None Review of Systems Review of Systems: gen - no fevers, no chills, no night-sweats; weight loss - about 10kg since early 2020 eyes - no visual loss HENT - no dysphagia neck - no pain CV - no chest pain or orthopnea Pulm - no cough, no dyspnea GI - emesis x 1 in the ER today; recent abdominal discomfort at home; nausea at home; diarrhea for 1-2 weeks - no dysuria musculo - no myalgias skin - no rash neuro - no focal motor weakness but has had balance troubles of late, unsteadiness, falls psych - no depression Physical Exam Physical Exam: gen - NAD, pleasant, awake & alert eyes - PERRL mouth - MM mildly dry neck - no JVD heart - RRR, s1 s2 lungs - CTA b/l abd - soft, NT, ND, BS+, no HSM ext - pulses 2+ b/l, no edema lymph - no cervical lymph nodes palpable; no axillary lymph nodes palpable neuro - strength 5/5 x 4 exts; DTRs 2+ b/l; no facial droop; finger/nose/finger maneuver w/o ataxia b/l psych - a/o x 3 skin - no rash chest - pacemaker/ICD device L upper chest Results & Data Results & Data ([facility]) Vital Signs (Past 12 Hours) Vital Signs Temp Pulse Pulse Resp BP BP Pulse Ox 10/25/21 15:36 53 L 18 137/58 L 100 10/25/21 12:22 36.5 C 56 L 18 121/73 99 Laboratory Results Laboratory Results - last 24 hr 10/25/21 10/25/21 10/25/21 12:44 12:44 12:44 WBC 5.81 RBC 3.83 L Hgb 12.6 L Hct 38.0 L MCV 99.2 MCH 32.9 MCHC 33.2 RDW Std Deviation 59.5 H RDW Coeff of David 16.7 H Plt Count 94 L Immature Gran % (Auto) 0.5 Neut % (Auto) 62.3 Lymph % (Auto) 17.4 [place] % (Auto) 16.2 Eos % (Auto) 3.4 Baso % (Auto) 0.2 Neut # (Auto) 3.62 Lymph # (Auto) 1.01 L [place] # (Auto) 0.94 H Eos # (Auto) 0.20 Baso # (Auto) 0.01 Immature Gran # (Auto) 0.03 H Platelet Estimate Decreased L Sodium 135 L Potassium 4.1 Chloride 104 Carbon Dioxide 25 Anion Gap 6 BUN 46 H Creatinine 3.30 H Est Cr Clr Drug Dosing 19.9 Est GFR ( Amer) 19.5 Est GFR (Non-Af Amer) 16.8 BUN/Creatinine Ratio 13.9 Glucose 122 H POC Glucose Calcium 12.2 H* Total Bilirubin 0.7 AST 72 H ALT 62 H Alkaline Phosphatase 101 Troponin I < 0.03 Total Protein 7.8 Albumin 3.3 L Globulin 4.5 H Albumin/Globulin Ratio 0.7 L TSH 3.221 Urine Color Urine Appearance Urine pH Ur Specific [place] Urine Protein Urine Glucose (UA) Urine Ketones Urine Blood Urine Nitrite Urine Bilirubin Urine Urobilinogen Ur Leukocyte Esterase SARS-CoV-2, RNA, NAAT 10/25/21 10/25/21 10/25/21 14:20 15:32 20:22 WBC RBC Hgb Hct MCV MCH MCHC RDW Std Deviation RDW Coeff of David Plt Count Immature Gran % (Auto) Neut % (Auto) Lymph % (Auto) [place] % (Auto) Eos % (Auto) Baso % (Auto) Neut # (Auto) Lymph # (Auto) [place] # (Auto) Eos # (Auto) Baso # (Auto) Immature Gran # (Auto) Platelet Estimate Sodium Potassium Chloride Carbon Dioxide Anion Gap BUN Creatinine Est Cr Clr Drug Dosing Est GFR ( Amer) Est GFR (Non-Af Amer) BUN/Creatinine Ratio Glucose POC Glucose 121 H Calcium Total Bilirubin AST ALT Alkaline Phosphatase Troponin I Total Protein Albumin Globulin Albumin/Globulin Ratio TSH Urine Color Dark Yellow Urine Appearance Clear Urine pH 5.5 Ur Specific [place] 1.016 Urine Protein Negative Urine Glucose (UA) Negative Urine Ketones Negative Urine Blood Negative Urine Nitrite Negative Urine Bilirubin Negative Urine Urobilinogen Negative Ur Leukocyte Esterase Negative SARS-CoV-2, RNA, NAAT NEGATIVE Diagnostic Findings Chest X-Ray 10/25/21 13:18 XR chest 1V portable CLINICAL HISTORY: weakness TECHNIQUE: Single frontal radiograph of the chest was obtained. Comparison: Comparison is made to chest and abdomen radiographs 09/02/2020 FINDINGS: Pacemaker defibrillator is seen. Multiple fractured median sternotomy wires are noted. The cardiomediastinal silhouette is stable. Reticular interstitial changes are seen in the bilateral lower lungs. No evidence of acute airspace disease. No evidence of pleural effusion or pneumothorax. Old healed rib fractures are seen. IMPRESSION: Stable interstitial changes in bilateral lower lungs may represent atelectasis or fibrosis. No evidence of acute abnormality. ACT 112: Negative or not required by law. Electronically signed by: Steve Lomeli M.D. 10/25/2021 1:[address] 10/25/21 13:18 CT head/brain wo con CLINICAL HISTORY: ed weak Technique: Contiguous axial CT images of the head were acquired from the base of the skull to the vertex without intravenous contrast administration. Images were viewed in brain, subdural and bone windows. Automated dose lowering techniques and/or adjustment according to patient size were utilized for this exam. Comparison: Comparison is made to CT head 09/01/2020 Findings: Areas of decreased attenuation are present in the periventricular and subcortical white matter bilaterally consistent with small vessel ischemic disease. Generalized cerebral atrophy with commensurate enlargement of the ventricles, sulci, and cisterns is also present. There is no acute intracranial hemorrhage or evidence of acute territorial infarction. No shift of the midline structures, mass effect, or extra-axial abnormalities are shown. Atherosclerotic calcifications are present in the intracranial segments of the internal carotid arteries. Imaged portions of the paranasal sinuses and mastoid air cells are clear. The orbits appear normal. There are no acute fractures of the calvaria or scalp swelling. Impression: No acute intracranial hemorrhage, no evidence of acute territorial infarction or other acute intracranial disease process. ACT 112: Negative or not required by law. Electronically signed by: Steve Lomeli M.D. 10/25/2021 1:53 PM Abdomen/Pelvis CT 10/25/21 16:47 CT abd pelvis wo con CLINICAL HISTORY: lymphoma, ARF; assess for obstruction, lymph nodes TECHNIQUE: Helical axial images of the abdomen and pelvis were obtained. Automated dose lowering techniques and/or adjustment according to patient size were utilized for this exam. This exam was performed without intravenous contrast. COMPARISON: Comparison is made to CT abdomen pelvis 07/27/2021 FINDINGS: Lower chest: For findings above the diaphragm, please see CT chest performed same day. Liver: Unremarkable. No focal lesions are seen. Gallbladder and biliary tree: No calcified gallstones. Normal caliber wall. No intra- or extrahepatic biliary ductal dilation. Pancreas: Unremarkable, no focal lesions. Spleen: Unremarkable. Adrenals: Unremarkable. Kidneys and ureters: Nonobstructive nephrolithiasis is seen. Bladder: Unremarkable. Reproductive organs: Unremarkable. Bowel: Diverticulosis is seen without evidence of diverticulitis. The appendix is normal. Lymph nodes Retroperitoneal: Interval enlargement in previously noted lymphadenopathy. For example, previously noted 33 x 21 mm node now measures 37 x 29 mm. Adjacent node measures 52 x 30 mm. Mesenteric: Subcentimeter lymph nodes are noted. Pelvic: Unremarkable. Peritoneum: Trace ascites is seen about the liver and spleen. Vessels: Atherosclerotic calcifications are seen. Abdominal wall: Fat-containing inguinal hernias are seen bilaterally. There is a small amount of fluid in the right hernia. Bones: Degenerative changes in the visualized spine. IMPRESSION: 1. Evaluation is limited by noncontrast technique. Interval enlargement of previously noted retroperitoneal lymphadenopathy. 2. Minimal ascites. 3. Nonobstructive nephrolithiasis. 4. Additional findings as above. ACT 112: Negative or not required by law. Electronically signed by: Steve Lomeli M.D. 10/25/2021 5:[address] 10/25/21 16:47 CT chest diagnostic wo con CLINICAL HISTORY: lymphoma; assess for chest involvement TECHNIQUE: Multidetector row helical CT of the chest was performed. Coronal and sagittal reformations were obtained. Automated dose lowering techniques and/or adjustment according to patient size were utilized for this exam. Comparison: Comparison is made to CT chest 02/24/2011 FINDINGS: Lungs and pleura: A right major fissure intraparenchymal lymph node is seen. Heart and pericardium: Heart size is normal. No pericardial effusion. Vessels: Moderate atherosclerotic changes in the aorta and coronary arteries. Mediastinum and david: Unremarkable. Chest wall and lower neck: Unremarkable. Abdomen: For findings below the diaphragm, please refer to CT of the abdomen dated the same. Bones: Degenerative changes of the thoracic spine. Old healed rib fractures are seen. IMPRESSION: Unremarkable evaluation of the chest. No lymphadenopathy is seen. ACT 112: Negative or not required by law. Electronically signed by: Steve Lomeli M.D. 10/25/2021 5:48 PM EKG - my reading - NSR, PVC, insignificant q's inferior leads, no ST changes; prolonged QTc Code Status & VTE Plan Code Status DNR/DNI PG Care Time/CCT Total # of Minutes Spent Total Time Spent with Patient: Total time spent is greater than 50% in coordination of care (as documented) at patient's floor/unit and/or counseling patient: Coding Level of Care Code 29299 Initial Inpt Care Lvl 3 Diagnoses Hypercalcemia E83.52 Weakness R53.1 Fall W19.XXXA Severe protein-calorie malnutrition E43 Lymphoma C85.90 Prolonged QT interval R94.31 Acute kidney injury N17.9 Chronic renal failure, stage 3b N18.32 Atrial flutter I48.3 Atrial flutter type: typical CAD (coronary atherosclerotic disease) I25.10 Diabetes mellitus E11.22; N18.3 Diabetes mellitus type: type 2 Diabetes mellitus usp insulin use: without usp use Diabetes mellitus complication status: with kidney complications Diabetes mellitus complication detail: with chronic kidney disease Chronic kidney disease stage: stage 3 (moderate) Paroxysmal ventricular tachycardia I47.2 Transaminitis R74.01 DVT prophylaxis Z29.9 (1) Atrial flutter Atrial flutter type: typical Qualified Code(s): I48.3 - Typical atrial flutter (2) Diabetes mellitus Diabetes mellitus type: type 2 Diabetes mellitus usp insulin use: without terminal carman use Diabetes mellitus complication status: with kidney complications Diabetes mellitus complication detail: with chronic kidney disease Chronic kidney disease stage: stage 3 (moderate) Qualified Code(s): E11.22 - Type 2 diabetes mellitus with diabetic chronic kidney disease; N18.3 - Chronic kidney disease, stage 3 (moderate)
[2021-10-25] MEDS ORDERED: CALCITONIN SALMON 400 UNITS/2 ML SQ ONE (16:49)
[2021-10-25] MEDS ORDERED: ZOLEDRONIC ACID 4 MG in 0.9 % SODIUM CHLORIDE 100 ML IV ONE (17:30)
[2021-10-25] MEDS ORDERED: CALCITONIN SALMON SQ ONE (17:30)
--- NOTE | 2021-10-25 17:49 | CT Scan Report ---
CT chest diagnostic wo con CLINICAL HISTORY: lymphoma; assess for chest involvement TECHNIQUE: Multidetector row helical CT of the chest was performed. Coronal and sagittal reformations were obtained. Automated dose lowering techniques and/or adjustment according to patient size were u tilized for this exam. Comparison: Comparison is made to CT chest 02/24/2011 FINDINGS: Lungs and pleura: A right major fissure intraparenchymal lymph node is seen. Heart and pericardium: Heart size is normal. No pericardial effusion. Vessels: Moderate atherosclerotic changes in the aorta and coronary arteries. Mediastinum and david: Unremarkable. Chest wall and lower neck: Unremarkable. Abdomen: For findings below the diaphragm, please refer to CT of the abdomen dated the same. Bones: Degenerative changes of the thoracic spine. Old healed rib fractures are seen. IMPRESSION: Unremarkable evaluation of the chest. No lymphadenopathy is seen. ACT 112: Negative or not required by law. Electronically signed by: Steve Lomeli M.D. 10/25/2021 5:48 PM
[2021-10-25] MEDS: SODIUM CHLORIDE 0.9% 1000ML 1,000 ML IV SCH ×2 (17:56→21:45)
--- NOTE | 2021-10-25 17:56 | CT Scan Report ---
CT abd pelvis wo con CLINICAL HISTORY: lymphoma, ARF; assess for obstruction, lymph nodes TECHNIQUE: Helical axial images of the abdomen and pelvis were obtained. Automated dose lowering tech niques and/or adjustment according to patient size were utilized for this exam. This exam was perfor med without intravenous contrast. COMPARISON: Comparison is made to CT abdomen pelvis 07/27/2021 FINDINGS: Lower chest: For findings above the diaphragm, please see CT chest performed same day. Liver: Unremarkable. No focal lesions are seen. Gallbladder and biliary tree: No calcified gallstones. Normal caliber wall. No intra- or extrahepatic biliary ductal dilation. Pancreas: Unremarkable, no focal lesions. Spleen: Unremarkable. Adrenals: Unremarkable. Kidneys and ureters: Nonobstructive nephrolithiasis is seen. Bladder: Unremarkable. Reproductive organs: Unremarkable. Bowel: Diverticulosis is seen without evidence of diverticulitis. The appendix is normal. Lymph nodes Retroperitoneal: Interval enlargement in previously noted lymphadenopathy. For example, previously no poppy 33 x 21 mm node now measures 37 x 29 mm. Adjacent node measures 52 x 30 mm. Mesenteric: Subcentimeter lymph nodes are noted. Pelvic: Unremarkable. Peritoneum: Trace ascites is seen about the liver and spleen. Vessels: Atherosclerotic calcifications are seen. Abdominal wall: Fat-containing inguinal hernias are seen bilaterally. There is a small amount of flui d in the right hernia. Bones: Degenerative changes in the visualized spine. IMPRESSION: 1. Evaluation is limited by noncontrast technique. Interval enlargement of previously noted retroper itoneal lymphadenopathy. 2. Minimal ascites. 3. Nonobstructive nephrolithiasis. 4. Additional findings as above. ACT 112: Negative or not required by law. Electronically signed by: Steve Lomeli M.D. 10/25/2021 5:54 PM
[2021-10-25] MEDS ORDERED: NITROGLYCERIN SL 0.4 MG/TAB TAB SL PRN (19:27)
[2021-10-25] MEDS ORDERED: ONDANSETRON INJ 2 MG/ML 2 ML VIAL IV PRN (19:27)
[2021-10-25] MEDS: INSULIN ASPART PER UNIT SC SCH (20:38)
[2021-10-25] MEDS ORDERED: ATORVASTATIN 40 MG TAB PO SCH (21:00)
[2021-10-25] MEDS: AMIODARONE 200 MG TAB PO SCH (21:52)
[2021-10-25] MEDS: TAMSULOSIN HCL 0.4 MG CAP PO SCH (21:52)
[2021-10-25] MEDS: GABAPENTIN 100 MG CAP PO SCH (21:52)
[2021-10-25] MEDS: carvediloL 12.5 MG TAB PO SCH (21:52)
[2021-10-25 23:45] LABS: BUN Creatinine Ratio 14.3 (10-20); Calcium 11.2 mg/dl (8.5-10.1); Creatinine Clr Calc Pharmacy 21.4 ml/min; Est GFR (African American) 21.3 ml/min; Est GFR (Non-African American) 18.4 ml/min; Potassium 4.4 mmol/L (3.5-5.1)
[2021-10-26] MEDS: ASPIRIN 81 MG ECTAB PO SCH (07:35)
[2021-10-26] MEDS: AMIODARONE 200 MG TAB PO SCH ×2 (07:36→20:25)
[2021-10-26] MEDS: CYANOCOBALAMIN (B-12) 2,500 MCG TABLET SCH (07:36)
[2021-10-26] MEDS: MULTIVITAMIN TAB PO SCH (07:36)
[2021-10-26] MEDS: carvediloL 12.5 MG TAB PO SCH ×2 (07:36→21:45)
[2021-10-26 08:11] LABS: BUN Creatinine Ratio 14.6 (10-20); Calcium 10.5 mg/dl (8.5-10.1); Creatinine Clr Calc Pharmacy 21.8 ml/min; Est GFR (African American) 21.8 ml/min; Est GFR (Non-African American) 18.8 ml/min; Magnesium 1.9 mg/dl (1.7-2.4)
[2021-10-26] MEDS ORDERED: HEPARIN SOD 5,000 UNIT/0.5 ML VIAL SQ SCH (09:00)
[2021-10-26 09:04] LABS: Potassium 4.5 mmol/L (3.5-5.1)
[2021-10-26] MEDS: INSULIN ASPART PER UNIT SC SCH ×4 (09:28→21:23)
[2021-10-26] MEDS: SODIUM CHLORIDE 0.9% 1000ML 1,000 ML IV SCH (12:20)
--- NOTE | 2021-10-26 13:38 | Hospitalist Progress Note ---
Date of Service October 26, 2021 Assessment & Plan (1) Hypercalcemia: Plan: Manifested by symptoms of unsteadiness, dizziness, and poor appetite; suspect hypercalcemia 2/2 lymphoma (unconfirmed) Continue gentle IV fluid hydration Calcium has improved this morning status post calcitonin and Zometa We will repeat calcitonin dose 4 units/kg subcu x1 now Intact PTH drawn, low level noted on labs this morning subsequently inconsistent with hyperparathyroidism Hydrochlorothiazide is on hold, will continue holding as patient does appear dehydrated Hold all vitamin D supplements Repeat BMP tomorrow morning (2) Lymphoma: Plan: In 2020 he had imaging studies that were highly concerning for lymphoma. He has seen Dr Leon, and over the last few months he has simply been monitored carefully as opposed to starting treatment. CT abdomen and pelvis as well as chest without contrast performed on 10/25/2021. Slight progression of the retroperitoneal lymphadenopathy noted. No lymphadenopathy noted in the chest. Dr Leon from oncology consulted, appreciate assistance. He is recommending lymph node biopsy. Consult placed to Dr. Pagan for biopsy. (3) Weakness: Plan: Secondary likely to both undiagnosed lymphoma as well as hypercalcemia Physical and Occupational Therapy eval has been placed (4) Acute kidney injury: Plan: Likely due to dehydration and poor oral intake Continue gentle IV fluid hydration and continue to closely monitor renal functi on Hold nephrotoxic agents Continue holding HCTZ (5) Chronic renal failure, stage 3b: Plan: Baseline CrCl 30s/low 40s Baseline Cr 1.6 to 1.8; today >3; see above (6) Severe protein-calorie malnutrition: Plan: 10kg of weight loss in the last 6-12 months like d/t #2 (7) Prolonged QT interval: Plan: Likely due to amiodarone. Magnesium and potassium both within normal limits (8) Atrial flutter: Plan: Currently examines in normal sinus rhythm Continue beta lina Continue amiodarone He is not on chronic anticoagulation (9) CAD (coronary atherosclerotic disease): Plan: No ischemic symptoms at this time Hold statin due to transaminitis Cont coreg and asa (10) Diabetes mellitus: Plan: Hold home meds Loose sliding scale with novolog Last A1c was February 2021 and was 7.5% (11) Paroxysmal ventricular tachycardia: Plan: Continue amiodarone Has ICD in place as well (12) Transaminitis: Plan: Etiology? Hold statin & trend (13) DVT prophylaxis: Plan: Chemoprophylaxis contraindicated in the setting of thrombocytopenia Discontinue heparin Plan: Discussed case with Dr. Leon, consulted general surgery for biopsy; however, they are stating that they are not able to biopsy node. Will discuss referral to tertiary center for biopsy. Consult cancelled. Dr. Leon will see in office in 1-2 weeks after discharge. Therapy asking for script for walker, no notes in chart for review. Pt may benefit from short stay in rehab due to his weakness and unstable gait; but ultimately, will wait to review therapy eval. Interventions as noted above, f/u labs in AM. Continue hydration and closely monitor for s/sx of volume overload. Admission and Anticipated Discharge Date Admission Date: October 25, 2021 Subjective Patient seen on rounds this morning. Pt resting comfortably in bed. Denies cp, dyspnea, n/v/d, f/c, headache, or gu symptoms. He reports trouble with ambulati ng to the bathroom, feels weak, dizzy, and unsteady. Hospitalized for hypercalcemia in setting of suspected lymphoma following with Dr. Leon. Seen this AM by Dr. Leon who recommends consult for lymph node biopsy. Review of Systems Review of Systems: CONSTITUTIONAL: +weight loss, weakness. Denies weight gain, fever and chills. HEENT: Denies changes in vision and hearing. RESPIRATORY: Denies SOB, cough, wheezing. CV: Denies palpitations, CP, lower extremity edema, orthopnea, PND. GI: +decreased appetite. Denies abdominal pain, nausea, vomiting and diarrhea (at least today). : Denies dysuria and urinary frequency, urgency, hesitancy. MUSCULOSKELETAL: Denies myalgia and joint pain. SKIN: Denies rash and pruritus. NEUROLOGICAL: +dizziness and unsteady gait. Denies headache, syncope, focal weakness, numbness, tingling. PSYCHIATRIC: Denies recent changes in mood. Denies anxiety and depression. Physical Exam Physical Exam: GENERAL: 80 yo wd/wn elderly WM. Pleasant, cooperative, NAD. LUNGS: Clear to auscultation bilaterally. No W/R/R. CARDIOVASCULAR: Regular rate and rhythm. No M/G/R. No JVD. ABDOMEN: Soft, non-tender and non-distended. BS normal x 4 quad. EXTREMITIES: No edema. Non-tender. Peripheral pulses +2/4. NEUROLOGIC: A&O x3. PSYCHIATRIC: Cooperative. Appropriate mood and affect. SKIN: Warm, dry, intact. No rashes or lesions. Results & Data Results & Data ([facility]) Vital Signs (Past 12 Hours) Vital Signs Temp Pulse Pulse Resp BP Pulse Ox 10/26/21 11:33 36.4 C L 16 132/64 96 10/26/21 08:29 55 L 10/26/21 07:37 36.5 C 56 L 16 121/56 L 97 10/26/21 03:51 36.3 C L 64 16 117/65 93 Laboratory Results 10/25/21 12:44 10/26/21 08:24 Ca= 10.5 down from 12.2 Creat=3.01 down from 3.07 AST=63 down from 72 ALT=54 down from 62 PG Care Time/CCT Total # of Minutes Spent Total Time Spent with Patient: Total time spent is greater than 50% in coordination of care (as documented) at patient's floor/unit and/or counseling patient: Coding Level of Care Code 98320 Subseq Hosp Care Lvl 3 Diagnoses Hypercalcemia E83.52 Lymphoma C85.90 Weakness R53.1 Acute kidney injury N17.9 Chronic renal failure, stage 3b N18.32 Severe protein-calorie malnutrition E43 Prolonged QT interval R94.31 Atrial flutter I48.3 Atrial flutter type: typical CAD (coronary atherosclerotic disease) I25.10 Diabetes mellitus E11.22; N18.3 Diabetes mellitus type: type 2 Diabetes mellitus half-way insulin use: without half-way use Diabetes mellitus complication status: with kidney complications Diabetes mellitus complication detail: with chronic kidney disease Chronic kidney disease stage: stage 3 (moderate) Paroxysmal ventricular tachycardia I47.2 Transaminitis R74.01 DVT prophylaxis Z29.9 (1) Atrial flutter Atrial flutter type: typical Qualified Code(s): I48.3 - Typical atrial flutter (2) Diabetes mellitus Diabetes mellitus type: type 2 Diabetes mellitus superintendent terminal insulin use: without superintendent terminal use Diabetes mellitus complication status: with kidney complications Diabetes mellitus complication detail: with chronic kidney disease Chronic kidney disease stage: stage 3 (moderate) Qualified Code(s): E11.22 - Type 2 diabetes mellitus with diabetic chronic kidney disease; N18.3 - Chronic kidney disease, stage 3 (moderate)
[2021-10-26] MEDS ORDERED: CALCITONIN SALMON 400 UNITS/2 ML SQ STA (14:03)
--- NOTE | 2021-10-26 14:22 | Consultation Report ---
MEDICAL ONCOLOGY CONSULTATION DATE OF SERVICE: 10/26/2021. REASON FOR CONSULTATION: Retroperitoneal lymphadenopathy. HISTORY OF PRESENT ILLNESS: Tony was admitted to [facility] yesterday as a result of difficulty with balance over the past 5 days or so, multiple episodes of nearly falling due to imb alance, weakness, fatigue, weight loss and anorexia. He also relates some vague abdominal discomfort . Had an emesis episode in the Emergency Room as well. Tony was introduced to me last year when I wa s consulted by his primary provider and general surgery for evaluation and management of retroperiton eal lymphadenopathy seen on the radiographic study. At that time, Tony had suffered a fall at home. He was evaluated by physicians in the [facility], and apparently, they had done radiogr aphic studies for potential trauma, which revealed retroperitoneal lymphadenopathy initially. He was recommended followup with his primary care physician thereafter. For the most part, Tony had remain ed asymptomatic. Both he and his were on a weight loss crusade and readily admitted that he had lost some weight,however, not unintentionally. He denied B symptoms at that time. Ultimately, a PE T scan was performed identifying the same lesion in the aortocaval area of the retroperitoneum measur ing 3.6 x 3 cm with an impressive SUV of 23.4. Dr. Pagan had been on consultation at the time and let the impression, he was not anxious to explore the area laparoscopically. Hence, Tony was sent t o me to determine expediencing necessary to establish diagnosis. I last visited with Tony in with plans to follow up in 3-4 months and a repeat CT scan of the abdomen and pelvis. However, now he is an inpatient with hypercalcemia and there is now a concern with disease progression, possible connection with his ongoing symptoms. PAST MEDICAL HISTORY: Significant for atrial flutter, BPH, CAD, chronic kidney disease, depression, type 2 diabetes mellitus, ventricular fibrillation, hyperlipidemia, hypertension, ICD implantation, i schemic cardiomyopathy, obstructive sleep apnea. PAST SURGICAL HISTORY: Including implantation of an internal cardiac defibrillator, tonsillectomy/ad enoidectomy, nasal septoplasty, laminectomy, history of ear surgery, cystoscopy to remove kidney ston e, history of coronary artery bypass grafting in 1998, colonoscopy, cataract surgery, adenoidectomy a nd tympanomastoidectomy. MEDICATIONS PRIOR TO ADMISSION: Include cyanocobalamin 5000 mcg p.o. daily, cholecalciferol 2000 uni ts p.o. daily, multivitamin 1 tablet p.o. b.i.d., aspirin 81 mg p.o. daily, amiodarone 200 mg p.o. b. i.d., tamsulosin 0.4 mg p.o. daily, hydrocodone/acetaminophen 1 tablet p.o. q.4 hours p.r.n., Victoza subcutaneous pen 1.2 mg subQ daily, sitagliptin 1 tablet p.o. b.i.d., atorvastatin 40 mg p.o. daily, triamterene/hydrochlorothiazide 1 capsule p.o. daily, carvedilol 12.5 mg p.o. b.i.d., gabapentin 100 mg p.o. daily. ALLERGIES: No known drug allergies. FAMILY HISTORY: Mother suffered from breast cancer and diabetes mellitus. Father of myocardial infarction. SOCIAL HISTORY: The patient is a reformed smoker, smoked for 31 years, stopped in 1976. Negative fo r alcohol or illicit drugs. He is and lives with his spouse. REVIEW OF SYSTEMS: As per HPI. PHYSICAL EXAMINATION: GENERAL: A very pleasant 80-year-old gentleman, awake, alert, appropriate, in no acute distress. VITAL SIGNS: Temperature 36.5, pulse 56, respiratory rate 16, blood pressure 121/56. SKIN: Warm, dry, noncyanotic without petechia, rash or ecchymosis. HEENT: Atraumatic, normocephalic. Eyes: PERRLA. EOMI. Sclerae nonicteric. No conjunctival inject ion. Nares patent without rhinorrhea or discharge. Throat clear. Tongue midline. Mucous membranes are moist. NECK: Supple without JVD or thyromegaly. LYMPHATICS: No cervical, supraclavicular, axillary or inguinal palpable nodes. HEART: Regular rate and rhythm. No clicks, rubs, murmurs or gallops. LUNGS: Clear to auscultation bilaterally. ABDOMEN: Obese, soft, nontender, nondistended, without palpable hepatosplenomegaly. EXTREMITIES: No calf tenderness or swelling. No clubbing, cyanosis or edema. NEUROLOGIC: He is awake, alert, appropriate, grossly intact otherwise. RADIOGRAPHIC DATA: CT scan of the abdomen and pelvis reveals enlarging retroperitoneal lymphadenopat hy, node now measures 37 x 29 mm, previously 33 x 21 mm. Adjacent node is now 52 x 30 mm in size. LABORATORY DATA: WBC count 5810, hemoglobin 10.6, platelet count 94,000. Sodium 135, potassium 4.4, chloride 106, carbon dioxide 23, creatinine 3.07. BUN 44, calcium 11.2, AST 72, ALT 62, albumin 3.3 . IMPRESSION: 1. Hypercalcemia attributable to malignancy. 2. Retroperitoneal lymphadenopathy suspicious for a lymphoproliferative disease. 3. Generalized weakness. 4. Acute renal injury. 5. Status post fall. 6. Severe protein-calorie malnutrition. 7. History of diabetes mellitus. PLAN: I have been asked to visit with Mr. Carroll at bedside today. Very familiar with this gentleman , met him last year with retroperitoneal lymphadenopathy. At the time of his initial visit and subse quent followup in July, Tony had remained largely asymptomatic and with his comorbid issues, unde rstand the reluctance of pursuing surgical biopsy. Retroperitoneal lymphadenopathy would require lap aroscopic approach. Unfortunately, there were no peripheral nodes detected on physical examination. However, with these ongoing symptoms and now with hypercalcemia, I suspect maybe connected to lympho proliferative disease. Again, keeping in mind the lymph node on PET examination a few months back, FINNEY V was quite impressive, so without a doubt, I believe he does suffer from an underlying non-Hodgkin's lymphoma. Perhaps treatment would be beneficial at this point. Again, I understand the reluctance moving forward with his comorbid issues. For now, we need to get Mr. Carroll square away from an elect rolyte perspective, work on his renal function, rehydration and hopefully some strengthening. Dr. Cindi Pagan has been in consult with Mr. Carroll in the past and would alert him to his inpatient st atus and perhaps begin the process of establishing a plan for tissue diagnosis moving forward. I hav e nothing further to add at this time. We will continue to follow him periodically during inpatient stay. Thank you very much for allowing me to participate in his care. Job ID: [id number]
[2021-10-26] MEDS ORDERED: CALCITONIN SALMON SQ ONE (14:30)
--- NOTE | 2021-10-26 14:37 | Surgery Consultation ---
Date of Consultation October 26, 2021 Assessment & Plan (1) Retroperitoneal lymphadenopathy: The aortocaval node cannot easily be biopsied. He does not have any other adenopathy by exam or imaging. We can review the case with oncology and possibly radiology although further work-up can be completed as an outpatient. Supervising Physician Co-Signing Physician Notes I personally saw and evaluated the patient with Pino Bhat PA-C and agree with the assessment and plan. 80-year-old male with aortocaval adenopathy concerning for lymphoma Due to the location of the lymph nodes I would not be able to safely biopsy these Would recommend referral to surgical oncology for consideration of biopsy This can be done as an outpatient History of Present Illness Attending Physician: Reji Hong MD History of Present Illness 80 y/o male presented to ED with dizziness, several falls and admitted for eval yesterday. Has been following with oncology for incidental aortocaval adenopathy and has had outpatient CT and PET scans. He was seen by Dr. Pagan last March for possible biopsy, however the location is not amenable to laparoscopic biopsy. He was not symptomatic at the time and no further diagnosis or treatment was pursued. He now has hypercalcemia which may be attributed to malignancy and biopsy was again requested. Allergies Allergy/AdvReac Type Severity Reaction Status Date / Time No Known Drug Allergies Allergy Verified 10/25/21 14:22 Home Medications Medication Instructions Recorded Confirmed Type cyanocobalamin (vitamin B-12) 5,000 mcg PO DAILY 11/13/18 10/25/21 History 5,000 mcg capsule cholecalciferol (vitamin D3) 50 2,000 units PO DAILY 03/03/19 10/25/21 History mcg (2,000 unit) capsule multivitamin 1 tab PO BID tab 03/04/19 10/25/21 History aspirin 81 mg tablet,delayed 81 mg PO DAILY 07/05/20 10/25/21 History release amiodarone 200 mg tablet 200 mg PO BID tab 10/29/20 10/25/21 History lutein 25 mg-zeaxanthin 5 mg 1 cap PO HS 11/05/20 10/25/21 History capsule tamsulosin 0.4 mg capsule 0.4 mg PO HS 11/05/20 10/25/21 History hydrocodone 5 mg-acetaminophen 325 1 tab PO Q4H PRN #20 tab 12/31/20 10/25/21 Rx mg tablet liraglutide 0.6 mg/0.1 mL (18 mg/3 1.2 mg SQ QAM #18 ml 04/21/21 10/25/21 Rx mL) subcutaneous pen injector (Voxbone 2-Ronen) pen needle,diabetic dual safty 30 #100 ea 04/22/21 10/25/21 Rx gauge x 3/16" (BD AutoShield Duo Pen Needle) sitagliptin 50 mg-metformin 1,000 1 tab PO BID #180 tab 05/20/21 10/25/21 Rx mg tablet (Janumet) atorvastatin 40 mg tablet 40 mg PO HS #90 tab 05/31/21 10/25/21 Rx krill oil 500 mg capsule 500 mg PO DAILY cap 07/18/21 10/25/21 History triamterene 37.5 1 cap PO QAM #90 cap 08/15/21 10/25/21 Rx mg-hydrochlorothiazide 25 mg capsule carvedilol 12.5 mg tablet 12.5 mg PO BID #180 tab 08/29/21 10/25/21 Rx gabapentin 100 mg capsule 100 mg PO HS #90 cap 10/19/21 10/25/21 Rx Patient History Medical History Atrial flutter Presented to the emergency room on August 16, 2020 after syncopal episode; arrhythmia ID'd based on his ICD evaluation, converted with an ICD shock and "seems to have remained in sinus rhythm. His current interrogation demonstr ates no further atrial flutter since that shock." (Per cardio note 09/20/20) Benign prostatic hyperplasia CAD (coronary artery disease) H/O OK 1988, S/P CABG 1998 Chronic kidney disease, stage III (moderate) Depression HX Diabetes mellitus, type 2 H/O acute myocardial infarction 1988 History of ventricular fibrillation s/p ICD [place] (hard of hearing) Hyperlipidemia Hypertension patient denies having HTN/REPORTS HAS HAD LOW BLOOD PRESSURE OFF AND ON ICD (implantable cardioverter-defibrillator) in place INITIALLY IMPLANTED 2002 ; GENERATOR CHANGE 2011 AND DECEMBER 02, 2019- LAST PHOEBE CK 07/2020 Ischemic cardiomyopathy (Unknown) S/p ICD implantation EF 40% per most recent echo 08/2020 Obstructive sleep apnea On CPAP Retroperitoneal lymphadenopathy SNHL (sensorineural hearing loss) Surgical History Difficult airway for intubation PT REPORTS WAS TOLD PT WAS DIFFICULT INTUBATION - UNKNOWN FURTHER DETAILS - ? SURGERY WAS TOLD THIS- POSSIBLY BYPASS SURGERY PER -PER PT 30+ YRS AGO? H/O tympanomastoidectomy RIGHT 11/12/20 [facility] History of adenoidectomy History of cardiac cath PRIOR TO HEART SURGERY, [facility] - NO STENT(S) History of cataract surgery R/L History of colonoscopy History of coronary artery bypass graft 3 VESSELS 1998 History of cystoscopy REMOVAL KIDNEY STONE History of ear surgery left tympanomastoidectomy on 12/31/20 - Dr. Lynn History of laminectomy History of nasal septoplasty History of tonsillectomy and adenoidectomy Implantation of internal cardiac defibrillator (05/02/12) S/P ICD (internal cardiac defibrillator) procedure Placed 2002, generator change 2011 and 2019 Family History Mother Breast cancer Family history of diabetes mellitus Grandmother (Maternal) No problems noted. Grandmother (Paternal) Myocardial infarction Breast cancer Father Myocardial infarction Brother Brain cancer Sister Cancer Denies family history of Ovarian cancer Prostate cancer Colorectal cancer Social History Smoking Status: Former smoker Tobacco Type: Cigarettes packs per day: 2; Years Smoked: 31; Second Hand Exposure: No; Hx Alcohol Use: Yes (stopped use in 1976) Hx Substance Use: No Preferred Language: Japanese Communication Ability: Effective Visual Impairment: No Limitations Hearing Ability: Normal Conduit Helper Required: No Beliefs That Will Affect Care: None marital status: Current Living Situation: Spouse current occupational status: 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 How many Children do You have: 2 Other Information That Helps Us Care for You: No Feels Safe at Home: Yes Childhood Exposure to Second-Hand Smoke: No Diet Comment: "go low" Dental Care, Regularly: Yes Physical Activity Frequency: 1-2 Times per Week Seatbelt Use: always Sunscreen Use: No Assistive Devices: CPAP Review of Systems Constitutional: + weight loss ( has changed cooking/eating habits ); no fever, no chills, no sweats, no fatigue and no anorexia Gastrointestinal: no abdominal pain, no nausea and no vomiting Hematologic / Lymphatic: no lymphadenopathy and no night sweats Physical Exam Constitutional: WD/WN, vitals as above Neck: trachea midline, no thyromegaly (no adenopathy) Gastrointestinal (Abdomen): Inspection/Auscultation: abdomen not distended Percussion/Palpation: abdomen soft; abdomen nontender Lymphatic: no cervical or axillary lymphadenopathy no preauricular lymphadenopathy and no inguinal lymphadenopathy Results & Data ([facility]) Vital Signs (Past 12 Hours) Vital Signs Temp Pulse Pulse Resp BP Pulse Ox 10/26/21 11:33 36.4 C L 16 132/64 96 10/26/21 08:29 55 L 10/26/21 07:37 36.5 C 56 L 16 121/56 L 97 10/26/21 03:51 36.3 C L 64 16 117/65 93 PG Care Time/CCT Total # of Minutes Spent Total Time Spent with Patient: Total time spent is greater than 50% in coordination of care (as documented) at patient's floor/unit and/or counseling patient: Coding Level of Care Code 21519 Initial Inpt Care Lvl 1 Diagnoses Retroperitoneal lymphadenopathy R59.0
[2021-10-26] MEDS: GABAPENTIN 100 MG CAP PO SCH (20:25)
[2021-10-26] MEDS: TAMSULOSIN HCL 0.4 MG CAP PO SCH (20:26)
--- NOTE | 2021-10-26 21:54 | Electrocardiogram Report ---
Test Reason : Blood Pressure : / mmHG Vent. Rate : 056 BPM Atrial Rate : 056 BPM P-R Int : 176 ms QRS Dur : 116 ms QT Int : 520 ms P-R-T Axes : 113 054 083 degrees QTc Int : 501 ms Sinus bradycardia with sinus arrhythmia with occasional Premature ventricular complexes Inferior infarct , age undetermined Prolonged QT Abnormal ECG When compared with ECG of 02-SEP-2020 17:20, Ventricular paced complexes are no longer present Confirmed by Eben Gary ([id number]) on 10/26/2021 9:54:12 PM Referred By: Confirmed By:Eben Gary
[2021-10-26] MEDS: ACETAMINOPHEN 325 MG TAB PO PRN (22:37)
[2021-10-27] MEDS: SODIUM CHLORIDE 0.9% 1000ML 1,000 ML IV SCH (02:08)
[2021-10-27] MEDS: ACETAMINOPHEN 325 MG TAB PO PRN (03:17)
[2021-10-27 07:04] LABS: Mean Corpuscular Hgb Conc 33.3 g/dL (32-36)
[2021-10-27 07:22] LABS: Hematocrit (blood only) 34.8 % (42-52); Hemoglobin 11.6 g/dL (14.0-18.0); Mean Corpuscular Hemoglobin 32.6 pg (25-34); Mean Corpuscular Volume 97.8 fL (80-100); RDW Coefficient of Variation 16.8 % (11.5-14.5); RDW Standard Deviation 59.1 fL (36.4-46.3); Red Blood Count 3.56 M/uL (4.7-6.1); White Blood Count 5.48 K/uL (4.8-10.8)
[2021-10-27 07:40] LABS: Basophils # (auto) 0.01 K/uL (0-0.2); Basophils % (auto) 0.2 %; Eosinophils # (auto) 0.24 K/uL (0-0.5); Eosinophils % (auto) 4.4 %; Immature Granulocytes # (auto) 0.01 K/uL (0.00-0.02); Immature Granulocytes % (auto) 0.2 %; Lymphocytes # (auto) 1.21 K/uL (1.2-3.4); Lymphocytes % (auto) 22.1 %; Monocytes # (auto) 0.87 K/uL (0.11-0.59); Monocytes % (auto) 15.9 %; Neutrophils # (auto) 3.14 K/uL (1.4-6.5); Neutrophils % (auto) 57.2 %; Platelet Count 83 K/uL (130-400); Platelet Estimate Decreased (Normal)
[2021-10-27 07:55] LABS: BUN Creatinine Ratio 13.7 (10-20); Calcium 9.7 mg/dl (8.5-10.1); Creatinine Clr Calc Pharmacy 22.5 ml/min; Est GFR (African American) 22.6 ml/min; Est GFR (Non-African American) 19.5 ml/min; Potassium 3.9 mmol/L (3.5-5.1)
[2021-10-27] MEDS: INSULIN ASPART PER UNIT SC SCH ×2 (07:56→11:52)
[2021-10-27] MEDS: AMIODARONE 200 MG TAB PO SCH (08:45)
[2021-10-27] MEDS: MULTIVITAMIN TAB PO SCH (08:45)
[2021-10-27] MEDS: ASPIRIN 81 MG ECTAB PO SCH (08:45)
[2021-10-27] MEDS: CYANOCOBALAMIN (B-12) 2,500 MCG TABLET SCH (08:45)
[2021-10-27] MEDS: carvediloL 12.5 MG TAB PO SCH (08:45)
[2021-10-27 08:48] LABS: Albumin Level 2.7 gm/dl (3.4-5.0); Bilirubin Direct 0.1 mg/dl (0-0.2); Bilirubin,Total 0.7 mg/dl (0.2-1.0); Total Protein 6.4 gm/dl (6.0-8.3)
--- NOTE | 2021-10-27 12:45 | Discharge Summary ---
Date of Service October 27, 2021 Admission HPI Per Admitting Provider Doron 80yo male with an extensive heart history including acute AR in 1988, CABG 3-vessel in 1998, T2DM, v. fib s/p AICD, kidney stones, CKD stage 3, aflutter, and recent dx of lymphoma in 2020 presents with difficulty with balance over the last 4-5 days, multiple episodes of nearly falling due to the imbalance, weakness, fatigue, weight loss, nausea, vague abdominal discomfort, and an episode of emesis in the ER today. Symptoms of fatigue/weight loss began in the last 2-3 months and have worsened. He is now down to <200 pounds which is the lowest he has been in a long time. He has been followed by Dr Leon for lymphoma and last set of CT scans/PET was in late 2020. He hadn't had a biopsy but lymphoma was suspected based on his CT scans. Denies any change in his chronic paresthesias. 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 Denies any fevers, chills, nightsweats. Today in the ER his total calcium level was noted to be 12.2. Previous levels were all normal. Principal Diagnosis 1. Hypercalcemia 2. Retroperitoneal lymphadenopathy, suspected/presumed lymphoma 3. SHARON on CKD Discharge Exam GENERAL: 80 yo wd/wn elderly WM. Pleasant, cooperative, NAD. LUNGS: Clear to auscultation bilaterally. No W/R/R. CARDIOVASCULAR: Regular rate and rhythm. No M/G/R. No JVD. ABDOMEN: Soft, non-tender and non-distended. BS normal x 4 quad. EXTREMITIES: No edema. Non-tender. Peripheral pulses +2/4. NEUROLOGIC: A&O x3. PSYCHIATRIC: Cooperative. Appropriate mood and affect. SKIN: Warm, dry, intact. No rashes or lesions. Discharge Data Allergies Allergy/AdvReac Type Severity Reaction Status Date / Time No Known Drug Allergies Allergy Verified 10/25/21 14:[address] Leon consulted due to his established relationship with Mr. Carroll for this lymphadenopathy and suspected lymphoma, please see consult note for further details General surgery consulted due to need for lymph node biopsy--see by LEANDRO, they cannot access this node, see consult note Ordered Studies Chest X-Ray 10/25/21 13:18 XR chest 1V portable CLINICAL HISTORY: weakness TECHNIQUE: Single frontal radiograph of the chest was obtained. Comparison: Comparison is made to chest and abdomen radiographs 09/02/2020 FINDINGS: Pacemaker defibrillator is seen. Multiple fractured median sternotomy wires are noted. The cardiomediastinal silhouette is stable. Reticular interstitial edward es are seen in the bilateral lower lungs. No evidence of acute airspace disease. No evidence of pleural effusion or pneumothorax. Old healed rib fractures are seen. IMPRESSION: Stable interstitial changes in bilateral lower lungs may represent atelectasis or fibrosis. No evidence of acute abnormality. ACT 112: Negative or not required by law. Electronically signed by: Steve Lomeli M.D. 10/25/2021 1:[address] 10/25/21 13:18 CT head/brain wo con CLINICAL HISTORY: ed weak Technique: Contiguous axial CT images of the head were acquired from the base of the skull to the vertex without intravenous contrast administration. Images were viewed in brain, subdural and bone windows. Automated dose lowering techniques and/or adjustment according to patient size were utilized for this exam. Comparison: Comparison is made to CT head 09/01/2020 Findings: Areas of decreased attenuation are present in the periventricular and subcortical white matter bilaterally consistent with small vessel ischemic disease. Generalized cerebral atrophy with commensurate enlargement of the ventricles, sulci, and cisterns is also present. There is no acute intracranial hemorrhage or evidence of acute territorial infarction. No shift of the midline structures, mass effect, or extra-axial abnormalities are shown. Atherosclerotic calcifications are present in the intracranial segments of the internal carotid arteries. Imaged portions of the paranasal sinuses and mastoid air cells are clear. The orbits appear normal. There are no acute fractures of the calvaria or scalp swelling. Impression: No acute intracranial hemorrhage, no evidence of acute territorial infarction or other acute intracranial disease process. ACT 112: Negative or not required by law. Electronically signed by: Steve Lomeli M.D. 10/25/2021 1:53 PM Abdomen/Pelvis CT 10/25/21 16:47 CT abd pelvis wo con CLINICAL HISTORY: lymphoma, ARF; assess for obstruction, lymph nodes TECHNIQUE: Helical axial images of the abdomen and pelvis were obtained. Automated dose lowering techniques and/or adjustment according to patient size were utilized for this exam. This exam was performed without intravenous contrast. COMPARISON: Comparison is made to CT abdomen pelvis 07/27/2021 FINDINGS: Lower chest: For findings above the diaphragm, please see CT chest performed same day. Liver: Unremarkable. No focal lesions are seen. Gallbladder and biliary tree: No calcified gallstones. Normal caliber wall. No intra- or extrahepatic biliary ductal dilation. Pancreas: Unremarkable, no focal lesions. Spleen: Unremarkable. Adrenals: Unremarkable. Kidneys and ureters: Nonobstructive nephrolithiasis is seen. Bladder: Unremarkable. Reproductive organs: Unremarkable. Bowel: Diverticulosis is seen without evidence of diverticulitis. The appendix is normal. Lymph nodes Retroperitoneal: Interval enlargement in previously noted lymphadenopathy. For example, previously noted 33 x 21 mm node now measures 37 x 29 mm. Adjacent node measures 52 x 30 mm. Mesenteric: Subcentimeter lymph nodes are noted. Pelvic: Unremarkable. Peritoneum: Trace ascites is seen about the liver and spleen. Vessels: Atherosclerotic calcifications are seen. Abdominal wall: Fat-containing inguinal hernias are seen bilaterally. There is a small amount of fluid in the right hernia. Bones: Degenerative changes in the visualized spine. IMPRESSION: 1. Evaluation is limited by noncontrast technique. Interval enlargement of previously noted retroperitoneal lymphadenopathy. 2. Minimal ascites. 3. Nonobstructive nephrolithiasis. 4. Additional findings as above. ACT 112: Negative or not required by law. Electronically signed by: Steve Lomeli M.D. 10/25/2021 5:[address] 10/25/21 16:47 CT chest diagnostic wo con CLINICAL HISTORY: lymphoma; assess for chest involvement TECHNIQUE: Multidetector row helical CT of the chest was performed. Coronal and sagittal reformations were obtained. Automated dose lowering techniques and/or adjustment according to patient size were utilized for this exam. Comparison: Comparison is made to CT chest 02/24/2011 FINDINGS: Lungs and pleura: A right major fissure intraparenchymal lymph node is seen. Heart and pericardium: Heart size is normal. No pericardial effusion. Vessels: Moderate atherosclerotic changes in the aorta and coronary arteries. Mediastinum and david: Unremarkable. Chest wall and lower neck: Unremarkable. Abdomen: For findings below the diaphragm, please refer to CT of the abdomen dated the same. Bones: Degenerative changes of the thoracic spine. Old healed rib fractures are seen. IMPRESSION: Unremarkable evaluation of the chest. No lymphadenopathy is seen. ACT 112: Negative or not required by law. Electronically signed by: Steve Lomeli M.D. 10/25/2021 5:48 PM Hospital Course (1) Hypercalcemia: Manifested by symptoms of unsteadiness, dizziness, and poor appetite; suspect hypercalcemia 2/2 lymphoma (unconfirmed) Continue gentle IV fluid hydration Calcium has improved this morning status post calcitonin and Zometa administered 10/25 Repeated calcitonin dose 4 units/kg subcu x1 on 10/26, this AM calcium is 9.7 Intact PTH drawn, low level noted on labs this morning subsequently inconsistent with hyperparathyroidism Hydrochlorothiazide stopped due to dehydration and SHARON Vitamin D also stopped d/t the hypercalcemia (2) Lymphoma: In 2020 he had imaging studies that were highly concerning for lymphoma. He has seen Dr Leon, and over the last few months he has simply been monitored carefully as opposed to starting treatment. CT abdomen and pelvis as well as chest without contrast performed on 10/25/2021. Slight progression of the retroperitoneal lymphadenopathy noted. No lymphadenopathy noted in the chest. Dr Leon from oncology consulted, appreciate assistance. He is recommending lymph node biopsy. Consult placed to general surgery but they feel due to the location of the lymph node in question, they do not feel that they can access it Discussed case with [facility], they will arrange to have lymph node biopsied, will contact patient to schedule. Will fax order today. (3) Weakness: Secondary likely to both undiagnosed lymphoma as well as hypercalcemia Physical and Occupational Therapy eval has been placed, recommending home w/ home PT/OT services Provided patient with script for a walker (4) Acute kidney injury: Likely due to dehydration and poor oral intake Continued on gentle IVF hydration throughout his hospitalization Rental function is slowly improving Will ultimately discontinue his HCTZ/Triamterene Obtain f/u labs to reassess kidney function next week, results to pcp (5) Chronic renal failure, stage 3b: Baseline CrCl 30s/low 40s Baseline Cr 1.6 to 1.8; today 2.92 (3.30 upon admit), as above (6) Severe protein-calorie malnutrition: 10kg of weight loss in the last 6-12 months like d/t #2 (7) Prolonged QT interval: Likely due to amiodarone. Magnesium and potassium both within normal limits (8) Atrial flutter: Currently examines in normal sinus rhythm Continue beta lina Continue amiodarone He is not on chronic anticoagulation (9) CAD (coronary atherosclerotic disease): No ischemic symptoms at this time Hold statin due to transaminitis, continue holding upon d/c Cont coreg and asa (10) Diabetes mellitus: Hold home meds Loose sliding scale with novolog Last A1c was February 2021 and was 7.5% (11) Paroxysmal ventricular tachycardia: Continue amiodarone Has ICD in place as well (12) Transaminitis: Etiology? Hold statin upon d/c, f/u labs as outpatient (13) DVT prophylaxis: Chemoprophylaxis contraindicated in the setting of thrombocytopenia Discontinue heparin Discussed case with Dr. Leon, consulted general surgery for biopsy; however, they are stating that they are not able to biopsy node. Subsequently, reached out to [facility] who will reach out to patient to schedule the procedure. Results to be forwarded to Dr. Leon and pt is to follow up with him in 1-2 weeks. Interventions as outlined above upon discharge. Follow all discharge instructions. Medications to be taken as directed on med reconciliation. Follow up with PCP within 1 week. Total Time Total Time Spent Total Time Spent (In Minutes): >30 minutes Discharge Plan Discharge Items Patient Disposition: Home - Home Health Services Reason For Visit: HYPERCALCEMIA Discharge Diagnosis: Elevated calcium level in blood Probable lymphoma Activity: As commented below Activity Comment: with assist of walker Non-emergency contact: Primary Care Provider and Surgeon Call non-emergency contact if: you have any medication questions and your symptoms worsen Follow-up/Referrals: David Leon DO [Physician] - (1-2 weeks) Josafat Kohler DO [Primary Care Provider] - Diet: Carb Consistent or DM2 Ambulatory Orders: Comprehensive Metabolic Panel (Routine) Timeframe: 20211102 Location: Determined by Patient Ordered By: Tequila Bolden biopsy lymph node (Routine) Timeframe: 20211027 Location: Outside Location Ordered By: Tequila Bolden Addtl Attending Provider Instructions: You were hospitalized due to elevated calcium level in your bloodstream. When this occurs, you can have symptoms consistent with the ones you were experiencing, poor appetite, generalized weakness/malaise, dizziness, and nausea. You were given medications in the hospital to help lower your calcium. However, ultimately, the likely cause is an enlarged lymph node that is being monitored in your body due to concern for lymphoma. We cannot diagnose you with lymphoma without first testing the lymph node which would include taking a piece if not the entire lymph node out for biopsy. Due to the location of the lymph node, this presents a challenge for our surgery team here to access it. Subsequently, we have reached out to [facility] who has radiologists there that can use imaging tools to guide them while they access the lymph node to biopsy. They will be in touch with your to schedule the procedure. It is advised that you STOP your Vitamin D supplementation. For now, I want you to NOT TAKE your Lipitor until you are otherwise instructed by your family doctor. This medication needs to be held because your liver function tests were slightly elevated and statins (such as Lipitor) can cause this. We recommend that you continue keeping up with your hydration by drinking plenty of water throughout the day. We have STOPPED your Hydrochlorothiazide/Triamterene. The reason for this is due to decreased kidney function which can happen when you are dehydrated as well as when you take medications that make you pee out more fluid. We will have you get labwork next week to follow up with this. Pending Studies at Discharge: No Stand-Alone Forms: My [facility] Therapeutic Monitoring Services, Smoking Cessation Medications and DC Order Prescriptions: Continued Victoza 2-Ronen 0.6 mg/0.1 mL (18 mg/3 mL) pen injector 1.2 mg SQ QAM Qty: 18 RF: 5 (DME) BD AutoShield Duo Pen Needle 30 gauge x 3/16" needle See Rx Instructions .ROUTE .MEDSUPPLY Qty: 100 RF: 1 Janumet 50-1,000 mg tablet 1 tab PO BID Qty: 180 RF: 1 carvedilol 12.5 mg tablet 12.5 mg PO BID Qty: 180 RF: 3 COVID-19 vacc,mRNA(Pfizer)(PF) 30 mcg/0.3 mL suspension for reconstitution 0.3 ml IM ONCE Qty: 0.3 RF: 0 amiodarone 200 mg tablet 200 mg PO BID RF: 0 gabapentin 100 mg capsule 100 mg PO HS Qty: 90 RF: 1 tamsulosin 0.4 mg capsule 0.4 mg PO HS RF: 0 lutein-zeaxanthin 25-5 mg capsule 1 cap PO HS RF: 0 cyanocobalamin (vitamin B-12) 5,000 mcg Capsule 5,000 mcg PO DAILY RF: 0 multivitamin tablet 1 tab PO BID RF: 0 krill oil 500 mg capsule 500 mg PO DAILY RF: 0 aspirin 81 mg Tablet,Delayed Release (Dr/Ec) 81 mg PO DAILY RF: 0 hydrocodone-acetaminophen 5-325 mg tablet 1 tab PO Q4H PRN (Reason: pain) Qty: 20 RF: 0 Discontinued atorvastatin 40 mg tablet 40 mg PO HS Qty: 90 RF: 1 triamterene-hydrochlorothiazid 37.5-25 mg capsule 1 cap PO QAM Qty: 90 RF: 3 cholecalciferol (vitamin D3) 2,000 unit capsule 2,000 units PO DAILY RF: 0 Discharge Orders: Discharge Order (Routine); Ordered 10/27/21 Ordered By: Tequila Bolden Admission Data Admit Date/Time: 10/25/21 16:58 Attending Provider: Reji Hong Admit Provider: Bola Marsh Primary Care Provider: Josafat Kohler Other Providers: Bola Marsh ; David Leon V. ; [facility] Coding Level of Care Code D/C DAY MANAGEMENT >30 MINS Diagnoses Hypercalcemia E83.52 Lymphoma C85.90 Weakness R53.1 Acute kidney injury N17.9 Chronic renal failure, stage 3b N18.32 Severe protein-calorie malnutrition E43 Prolonged QT interval R94.31 Atrial flutter I48.3 Atrial flutter type: typical CAD (coronary atherosclerotic disease) I25.10 Diabetes mellitus E11.22; N18.3 Chronic kidney disease stage: stage 3 (moderate) Diabetes mellitus complication detail: with chronic kidney disease Diabetes mellitus complication status: with kidney complications Diabetes mellitus rat exterminator insulin use: without rat exterminator use Diabetes mellitus type: type 2 Paroxysmal ventricular tachycardia I47.2 Transaminitis R74.01 DVT prophylaxis Z29.9
== END 2021-10-27 15:55 | disposition home health service (06) | DRG 840 ==
LOC: ED 12:20 → EDINP 16:58 → SUATTDRO 16:58 → EDINP 19:26 → 2S 21:38

== ENCOUNTER 2022-01-13 09:47 | Inpatient (IN) ==
[2022-01-13] MEDS ORDERED: SODIUM CHLORIDE 0.9% 500 ML IV STA (10:21)
[2022-01-13] MEDS ORDERED: ONDANSETRON INJ 2 MG/ML 2 ML VIAL IV STA (10:21)
--- NOTE | 2022-01-13 10:25 | Emergency Department Note ---
History of Present Illness General Chief complaint: Abdominal Pain Stated complaint: ABD PAIN Time Seen by Provider: 01/13/22 10:10 Source: patient and family Mode of arrival: ambulatory Limitations: no limitations History of Present Illness Maximum Pain Intensity: 8 Home Medications Medication Instructions Recorded Confirmed Type cyanocobalamin (vitamin B-12) 5,000 mcg PO HS 11/13/18 01/13/22 History 5,000 mcg capsule multivitamin 1 tab PO BID tab 03/04/19 01/13/22 History aspirin 81 mg tablet,delayed 81 mg PO QAM 07/05/20 01/13/22 History release lutein 25 mg-zeaxanthin 5 mg 1 cap PO HS 11/05/20 01/13/22 History capsule liraglutide 0.6 mg/0.1 mL (18 mg/3 1.2 mg SQ QAM #18 ml 04/21/21 01/13/22 Rx mL) subcutaneous pen injector (RocketHub 2-Ronen) krill oil 500 mg capsule 500 mg PO HS cap 07/18/21 01/13/22 History carvedilol 12.5 mg tablet 12.5 mg PO BID #180 tab 08/29/21 01/13/22 Rx gabapentin 100 mg capsule 100 mg PO HS #90 cap 10/19/21 01/13/22 Rx amiodarone 200 mg tablet 200 mg PO BID #180 tab 11/04/21 01/13/22 Rx pen needle,diabetic dual safty 30 #100 ea 11/07/21 01/13/22 Rx gauge x 3/16" (BD AutoShield Duo Pen Needle) tamsulosin 0.4 mg capsule 0.4 mg PO HS #30 cap 11/08/21 01/13/22 Rx ondansetron 4 mg disintegrating 4 mg PO Q8H PRN #30 tab 11/11/21 01/13/22 Rx tablet sitagliptin 50 mg-metformin 1,000 1 tab PO BID #180 tab 11/17/21 01/13/22 Rx mg tablet (Janumet) furosemide 20 mg tablet (Lasix) 20 mg PO QAM 12/16/21 01/13/22 History prochlorperazine maleate 10 mg 10 mg PO Q6H PRN 12/16/21 01/13/22 History tablet Allergies Allergy/AdvReac Type Severity Reaction Status Date / Time No Known Drug Allergies Allergy Verified 12/22/21 11:18 Past Med/Surg History Medical History Atrial flutter Presented to the emergency room on August 16, 2020 after syncopal episode; arrhythmia identified on arrival- based on his ICD evaluation, converted with an ICD shock and "seems to have remained in sinus rhythm. 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 Needle biopsy at [facility] dx 11/2021. Surgical History Difficult airway for intubation PT REPORTS WAS TOLD PT WAS DIFFICULT INTUBATION - UNKNOWN FURTHER DE TAILS - ? SURGERY WAS TOLD THIS- POSSIBLY BYPASS SURGERY PER -PER PT 30+ YRS AGO? H/O tympanomastoidectomy RIGHT 11/12/20 [facility] History of adenoidectomy History of cardiac cath PRIOR TO HEART SURGERY, [facility] - NO STENT(S) History of cataract surgery R/L History of colonoscopy History of coronary artery bypass graft 3 VESSELS 1998 History of cystoscopy REMOVAL KIDNEY STONE History of laminectomy History of nasal septoplasty History of tonsillectomy and adenoidectomy History of tympanomastoidectomy (~12/2020) LEFT Implantation of internal cardiac defibrillator (05/02/12) Port-A-Cath in place (12/22/21) Insertion of Access Port Right Subclavian with Fluoroscopy(Right) - Ivan Peacock, 12/22/2021 S/P ICD (internal cardiac defibrillator) procedure Placed 2002, generator change 2011 and 2019 Family History Mother Breast cancer Family history of diabetes mellitus Grandmother (Maternal) No problems noted. Grandmother (Paternal) Myocardial infarction Breast cancer Father Myocardial infarction Brother Brain cancer Sister Cancer Denies family history of Ovarian cancer Prostate cancer Colorectal cancer Social History Smoking Status: Former smoker Tobacco Type: Cigarettes packs per day: 2; Years Smoked: 31; Second Hand Exposure: No; Hx Alcohol Use: Yes (stopped use in 1976) Hx Substance Use: No Preferred Language: Russian Communication Ability: Effective Visual Impairment: No Limitations Hearing Ability: Normal Rivet Tosser Required: No Beliefs That Will Affect Care: None marital status: Current Living Situation: Spouse current occupational status: 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 How many Children do You have: 2 Feels Safe at Home: Yes Childhood Exposure to Second-Hand Smoke: No Diet Comment: "go low" Dental Care, Regularly: Yes Physical Activity Frequency: 1-2 Times per Week Seatbelt Use: always Sunscreen Use: No Assistive Devices: CPAP, Denture - Lower, Glasses and Hearing Aid - Bilateral Review of Systems A total of 10 systems reviewed and were otherwise negative Physical Exam Vital Signs Vital Signs - 24 hr 01/13/22 09:49 01/13/22 10:33 01/13/22 10:41 Temperature 36.4 C L Temperature Source Temporal Artery Scan Pulse Rate 72 Pulse Rate [Finger] 74 Pulse Rhythm Regular Pulse Rhythm [Finger] Regular Pulse Strength Normal Pulse Strength [Finger] Normal Respiratory Rate 20 16 Respiratory Effort / Characteristics Non-Labored Spontaneous Non-Labored Respiratory Depth Normal Normal Respiratory Pattern Regular Blood Pressure 141/64 H Blood Pressure [Right Arm] 118/55 L Blood Pressure Mean 89 Blood Pressure Mean [Right Arm] 76 Pulse Oximetry 97 96 Oxygen Delivery Method Room Air Room Air Room Air Sepsis Recent Fever Within 48 Hours No Sepsis New/Unexplained Change in Mental Status No Sepsis Action Taken by Nursing No Action Required 01/13/22 12:00 Temperature Temperature Source Pulse Rate Pulse Rate [Finger] 72 Pulse Rhythm Pulse Rhythm [Finger] Pulse Strength Pulse Strength [Finger] Respiratory Rate 19 Respiratory Effort / Characteristics Respiratory Depth Respiratory Pattern Blood Pressure Blood Pressure [Right Arm] 123/78 Blood Pressure Mean Blood Pressure Mean [Right Arm] 93 Pulse Oximetry 94 Oxygen Delivery Method Room Air Sepsis Recent Fever Within 48 Hours Sepsis New/Unexplained Change in Mental Status Sepsis Action Taken by Nursing General: Well developed well nourished older male who is holding emesis bag and complaint of abdominal pain, distention and vomiting but in no acute respiratory distress, breathing comfortably on room air. Normal speech HEENT: Normal cephalic atraumatic. Pupils are equal round and reactive to light. Extraocular movements are intact. Oropharynx is pink with moist mucous membranes. No swelling of the mouth lips or tongue. Neck: Supple with a midline trachea. No meningeal signs or stiffness, no JVD or bruits. No Stridor. Chest: Clear to auscultation bilaterally. No wheezes or rhonchi. No increased work of breathing. Heart: Regular rate and rhythm without murmurs or gallops. Abdomen: Soft, diffusely tender and distended without rebound guarding or rigidity. Extremities: No cyanosis clubbing or edema. No calf tenderness or assymetry Spine/Back. Non tender to palpation. No CVA tenderness Skin: Good turgor without rashes. Neurologic exam: Cranial nerves two through 12 are intact. Motor and sensation are intact and symmetrical throughout. Course Administered Medications Discontinued Medications Sodium Chloride (Nss) 500 mls @ 999 mls/hr IV .Q31M STA Stop: 01/13/22 10:51 Last Admin: 01/13/22 11:19 Dose: 999 mls/hr Documented by: [id number] Morphine Sulfate (Morphine Sulfate 2 Mg/Ml Carp) 2 mg IV NOW STA Stop: 01/13/22 10:54 Last Admin: 01/13/22 11:19 Dose: 2 mg Documented by: [id number] Ondansetron HCl (Ondansetron Inj 2 Mg/Ml 2 Ml Vial) 4 mg IV NOW STA Stop: 01/13/22 10:22 Last Admin: 01/13/22 10:31 Dose: 4 mg Documented by: [id number] Medical Decision Making Differential Diagnosis Bowel obstruction, side effect from chemo, infection, intra-abdominal process, aneurysm, cardiac disease, dehydration, electrolyte or metabolic abnormality Medical Records Attestation: I reviewed the patient's medical records. Home Medications Current Medication List: was personally reviewed by me Laboratory Data Attestation: I reviewed the patient's lab results. Result diagrams: 01/13/22 11:33 01/13/22 11:33 Lab Results 01/13/22 01/13/22 01/13/22 Range/Units 10:30 11:24 11:33 WBC (4.8-10.8) K/uL RBC (4.7-6.1) M/uL Hgb (14.0-18.0) g/dL Hct (42-52) % MCV (80-100) fL MCH (25-34) pg MCHC (32-36) g/dL RDW Std Deviation (36.4-46.3) fL RDW Coeff of David (11.5-14.5) % Plt Count (130-400) K/uL Immature Gran % (Auto) % Neut % (Auto) % Lymph % (Auto) % [place] % (Auto) % Eos % (Auto) % Baso % (Auto) % Neut # (Auto) (1.4-6.5) K/uL Lymph # (Auto) (1.2-3.4) K/uL [place] # (Auto) (0.11-0.59) K/uL Eos # (Auto) (0-0.5) K/uL Baso # (Auto) (0-0.2) K/uL Immature Gran # (Auto) (0.00-0.02) K/uL Platelet Estimate (Normal) Anisocytosis Macrocytosis Sodium (136-145) mmol/L Potassium (3.5-5.1) mmol/L Chloride (98-107) mmol/L Carbon Dioxide (21-32) mmol/L Anion Gap (3-11) BUN (6-23) mg/dl Creatinine (0.6-1.4) mg/dl Est Cr Clr Drug Dosing Est GFR ( Amer) ml/min Est GFR (Non-Af Amer) ml/min BUN/Creatinine Ratio (10-20) Glucose (70-99(Fasting)) mg/dl Lactate (0.4-2.0) mmol/L Calcium (8.5-10.1) mg/dl Total Bilirubin (0.2-1.0) mg/dl AST (13-39) U/L ALT (7-52) U/L Alkaline Phosphatase (34-104) U/L Troponin I High Sens 11.2 (0-20) pg/ml Total Protein (6.0-8.3) gm/dl Albumin (3.4-5.0) gm/dl Globulin (2.5-4.0) gm/dl Albumin/Globulin Ratio (0.9-2) Lipase (11-82) U/L Urine Color Yellow Urine Appearance Clear (Clear) Urine pH 5.0 (4.5-7.5) Ur Specific [place] 1.016 (1.000-1.030) Urine Protein Negative (Negative) Urine Glucose (UA) Negative (Negative) Urine Ketones Negative (Negative) Urine Blood Negative (Negative) Urine Nitrite Negative (Negative) Urine Bilirubin Negative (Negative) Urine Urobilinogen Negative (Negative) Ur Leukocyte Esterase Negative (Negative) SARS-CoV-2 (PCR) NEGATIVE (Negative) Influenza Type A (PCR) Negative (Neg) Influenza Type B (PCR) Negative (Neg) RSV (RT-PCR) Negative (Neg) 01/13/22 01/13/22 01/13/22 Range/Units 11:33 11:33 13:25 WBC 3.39 L (4.8-10.8) K/uL RBC 2.53 L (4.7-6.1) M/uL Hgb 8.3 L (14.0-18.0) g/dL Hct 25.9 L (42-52) % MCV 102.4 H (80-100) fL MCH 32.8 (25-34) pg MCHC 32.0 (32-36) g/dL RDW Std Deviation 70.4 H (36.4-46.3) fL RDW Coeff of David 18.8 H (11.5-14.5) % Plt Count 92 L (130-400) K/uL Immature Gran % (Auto) 0.0 % Neut % (Auto) 85.2 % Lymph % (Auto) 12.4 % [place] % (Auto) 1.2 % Eos % (Auto) 0.9 % Baso % (Auto) 0.3 % Neut # (Auto) 2.89 (1.4-6.5) K/uL Lymph # (Auto) 0.42 L (1.2-3.4) K/uL [place] # (Auto) 0.04 L (0.11-0.59) K/uL Eos # (Auto) 0.03 (0-0.5) K/uL Baso # (Auto) 0.01 (0-0.2) K/uL Immature Gran # (Auto) 0.00 (0.00-0.02) K/uL Platelet Estimate Decreased L (Normal) Anisocytosis Present Macrocytosis Present Sodium 136 (136-145) mmol/L Potassium 4.5 (3.5-5.1) mmol/L Chloride 108 H (98-107) mmol/L Carbon Dioxide 20 L (21-32) mmol/L Anion Gap 8 (3-11) BUN 41 H (6-23) mg/dl Creatinine 1.91 H (0.6-1.4) mg/dl Est Cr Clr Drug Dosing Not Reportable Est GFR ( Amer) 37.5 ml/min Est GFR (Non-Af Amer) 32.4 ml/min BUN/Creatinine Ratio 21.5 H (10-20) Glucose 164 H (70-99(Fasting)) mg/dl Lactate 1.5 (0.4-2.0) mmol/L Calcium 8.5 (8.5-10.1) mg/dl Total Bilirubin 0.9 (0.2-1.0) mg/dl AST 34 (13-39) U/L ALT 25 (7-52) U/L Alkaline Phosphatase 65 (34-104) U/L Troponin I High Sens (0-20) pg/ml Total Protein 6.1 (6.0-8.3) gm/dl Albumin 3.1 L (3.4-5.0) gm/dl Globulin 3.0 (2.5-4.0) gm/dl Albumin/Globulin Ratio 1.0 (0.9-2) Lipase 75 (11-82) U/L Urine Color Urine Appearance (Clear) Urine pH (4.5-7.5) Ur Specific [place] (1.000-1.030) Urine Protein (Negative) Urine Glucose (UA) (Negative) Urine Ketones (Negative) Urine Blood (Negative) Urine Nitrite (Negative) Urine Bilirubin (Negative) Urine Urobilinogen (Negative) Ur Leukocyte Esterase (Negative) SARS-CoV-2 (PCR) (Negative) Influenza Type A (PCR) (Neg) Influenza Type B (PCR) (Neg) RSV (RT-PCR) (Neg) Imaging Data Attestation: I personally reviewed and interpreted this imaging study as follows: My Impression: Chest x-rayno acute infiltrate or pneumothorax. There is some mild interstitial thickening and he could have some mild CHF. Radiologist's Impression: Abdomen/Pelvis CT 01/13/22 10:[address] WITHOUT CONTRAST CT DOSE: 1082.37 mGy.cm HISTORY: Generalized abdominal pain. Vomiting. TECHNIQUE: Multiaxial CT images of the abdomen and pelvis were performed without contrast. A dose lowering technique was utilized adhering to the principles of ALARA. COMPARISON STUDY: Abdomen and pelvis CT 11/30/2021. FINDINGS: Mild interlobular septal thickening at the lung bases likely representing mild pulmonary edema and the background of congestive change. There are patchy densities within the lung bases posteriorly which may represent atelectasis. Small bilateral pleural effusions have developed in the interval. The heart is mildly enlarged. Partially visualized pacemaker wires are present. No pneumoperitoneum. No pneumatosis. Old, healed left-sided rib fractures. There are poststernotomy changes. Small fat-containing midline epigastric hernia. Moderate body wall edema. Slightly hyperdense liver, unchanged. Stable 1.2 cm hypodense focus within the left hepatic lobe. The unenhanced spleen, adrenal gla nds, and pancreas appear unremarkable. There is a punctate stone within the left kidney. No ureteral stones. No hydronephrosis. Mild thickening of the majority of the duodenum and jejunum, unchanged. Normal bladder. Small amount of ascites which has progressed. Subtle nodular contour to the liver consistent with mild cirrhosis. Stable 12 mm nodule posterior to the liver on image 166. Calcified plaque within the normal caliber abdominal aorta. Soft tissue retroperitoneal mass has decreased in size in the interval. The dominant component adjacent to the IVC currently measures approximately 5.3 x 3.3 cm. This previously measured 7.5 x 4.7 cm. No evidence for bowel obstruction. Colonic diverticulosis. No evidence for acute diverticulitis. Normal appendix. The gallbladder is decompressed. IMPRESSION: 1. Interval decrease in size in the retroperitoneal mass compared to the prior study. 2. Interval development of mild interstitial pulmonary edema and small bilateral pleural effusions. 3. Moderate body wall edema and a small amount of ascites has also progressed. 4. Mild bowel wall thickening involving the duodenum and proximal jejunum. This is nonspecific and could be due to the patient's diffuse edematous state versus a mild enteritis. 5. Additional findings as described above. ACT 112: Negative or not required by law. Electronically signed by: Jhoan Alvarez M.D. 01/13/2022 11:23 AM Chest X-Ray 01/13/22 10:21 XR chest 1V portable CLINICAL HISTORY: emesis COMPARISON STUDY: Chest CT October 2021. Chest radiograph December 22, 2021. FINDINGS: Left subclavian pacer/AICD is in place. There is a right subclavian [id number]. Mediastinal wires are noted. Cardiomegaly is unchanged. There is pulmonary vascular congestion with possible mild pulmonary edema. No pneumothorax or pleural effusion is noted. Old left-sided rib fractures are noted. IMPRESSION: Cardiomegaly. Pulmonary vascular congestion with possible mild pulmonary edema. ACT 112: Negative or not required by law. Electronically signed by: Rick Treadwell M.D. 01/13/2022 11:02 AM ECG Data Attestation: I personally reviewed and interpreted this ECG as follows: Indication: + abdominal pain, + nausea and + vomiting Rate (beats per minute): 74 Rhythm: + normal sinus ECG Intervals/blocks: + Normal QRS, + Normal QT and + Normal [place] ECG [place]: + Normal ECG ST segments: + Nonspecific ST abnormalities ECG Findings: no PACs or no PVCs Comparison ECG Date: from (10/25/21) Change: no significant change MDM Narrative This patient comes in as described above. He was placed on a media monitor and room B9. He is here for treatment evaluation of abdominal pain and vomiting he has testicular cancer and has a second round of chemo. his abdomen is distended and diffusely tender. He was sent over from the cancer center. His port was accessed. he was hydrated with 1 L IV normal saline bolus and given Zo nahid 4 mg IV and morphine 2 mg IV for pain and nausea management. He did have a labs drawn earlier's morning and his creatinine is 1.9 which is around his baseline of 2 given his renal insufficiency order the CAT scan without contrast. His chest x-ray and the CAT scan shows some anasarca and fluid overload. In light of this, I did give him only judicious IV fluids here he had about 250 cc I,V he was feeling better after receiving the morphine as well although seems very tender. His white count not elevated. His CAT scan shows enteritis. He has no significant electrolyte or metabolic abnormality with exception of some baseline renal insufficiency. I do think he needs to be admitted for pain management and observation. I have consulted Dr. Hunt to see him in ER for these measures. Continuous cardiac monitoring: An order was placed in the EMR for continuous cardiac monitoring. Upon my interpretation the patient was noted to be in normal sinus rhythm with a rate of 72 Impression & Plan Abdominal pain, Vomiting, Chemotherapy adverse reaction, Lab test negative for COVID-19 virus, Dehydration Discharge Plan Visit Data Chief Complaint: Abdominal Pain Stated Complaint: ABD PAIN ED Provider: Coleman Martinez Discharge Problem: Abdominal pain, Vomiting, Chemotherapy adverse reaction, Lab test negative for COVID-19 virus, Dehydration Forms Stand Alone Forms: My [facility] Prescriptions Prescriptions: No Action Victoza 2-Ronen 0.6 mg/0.1 mL (18 mg/3 mL) pen injector 1.2 mg SQ QAM Qty: 18 RF: 5 carvedilol 12.5 mg tablet 12.5 mg PO BID Qty: 180 RF: 3 amiodarone 200 mg tablet 200 mg PO BID Qty: 180 RF: 3 (DME) BD AutoShield Duo Pen Needle 30 gauge x 3/16" needle See Rx Instructions .ROUTE .MEDSUPPLY Qty: 100 RF: 1 tamsulosin 0.4 mg capsule 0.4 mg PO HS Qty: 30 RF: 5 ondansetron 4 mg tablet,disintegrating 4 mg PO Q8H PRN (Reason: nausea and vomiting) Qty: 30 RF: 1 Janumet 50-1,000 mg tablet 1 tab PO BID Qty: 180 RF: 1 prochlorperazine maleate 10 mg tablet 10 mg PO Q6H PRN (Reason: Nausea) RF: 0 furosemide [Lasix] 20 mg tablet 20 mg PO QAM RF: 0 gabapentin 100 mg capsule 100 mg PO HS Qty: 90 RF: 1 lutein-zeaxanthin 25-5 mg capsule 1 cap PO HS RF: 0 cyanocobalamin (vitamin B-12) 5,000 mcg Capsule 5,000 mcg PO HS RF: 0 multivitamin tablet 1 tab PO BID RF: 0 krill oil 500 mg capsule 500 mg PO HS RF: 0 aspirin 81 mg Tablet,Delayed Release (Dr/Ec) 81 mg PO QAM RF: 0 Referrals Referrals: Josafat Kohler, [Primary Care Provider] -
[2022-01-13] MEDS ORDERED: MoRPHine SULFATE 2 MG/ML CARP IV STA (10:53)
--- NOTE | 2022-01-13 11:03 | XRay Report ---
XR chest 1V portable CLINICAL HISTORY: emesis COMPARISON STUDY: Chest CT October 2021. Chest radiograph December 22, 2021. FINDINGS: Left subclavian pacer/AICD is in place. There is a right subclavian [id number]. Mediasti nal wires are noted. Cardiomegaly is unchanged. There is pulmonary vascular congestion with possible mild pulmonary edema. No pneumothorax or pleural effusion is noted. Old left-sided rib fractures are noted. IMPRESSION: Cardiomegaly. Pulmonary vascular congestion with possible mild pulmonary edema. ACT 112: Negative or not required by law. Electronically signed by: Rick Treadwell M.D. 01/13/2022 11:02 AM
--- NOTE | 2022-01-13 11:25 | CT Scan Report ---
ABDOMEN AND PELVIS CT WITHOUT CONTRAST CT DOSE: 1082.37 mGy.cm HISTORY: Generalized abdominal pain. Vomiting. TECHNIQUE: Multiaxial CT images of the abdomen and pelvis were performed without contrast. A dose lo wering technique was utilized adhering to the principles of ALARA. COMPARISON STUDY: Abdomen and pelvis CT 11/30/2021. FINDINGS: Mild interlobular septal thickening at the lung bases likely representing mild pulmonary ed argelia and the background of congestive change. There are patchy densities within the lung bases posteri alejandra which may represent atelectasis. Small bilateral pleural effusions have developed in the interva l. The heart is mildly enlarged. Partially visualized pacemaker wires are present. No pneumoperitoneu m. No pneumatosis. Old, healed left-sided rib fractures. There are poststernotomy changes. Small fat- containing midline epigastric hernia. Moderate body wall edema. Slightly hyperdense liver, unchanged. Stable 1.2 cm hypodense focus within the left hepatic lobe. The unenhanced spleen, adrenal glands, a nd pancreas appear unremarkable. There is a punctate stone within the left kidney. No ureteral stones . No hydronephrosis. Mild thickening of the majority of the duodenum and jejunum, unchanged. Normal b ladder. Small amount of ascites which has progressed. Subtle nodular contour to the liver consistent with mild cirrhosis. Stable 12 mm nodule posterior to the liver on image 166. Calcified plaque within the normal caliber abdominal aorta. Soft tissue retroperitoneal mass has decreased in size in the in terval. The dominant component adjacent to the IVC currently measures approximately 5.3 x 3.3 cm. Thi s previously measured 7.5 x 4.7 cm. No evidence for bowel obstruction. Colonic diverticulosis. No harish dence for acute diverticulitis. Normal appendix. The gallbladder is decompressed. IMPRESSION: 1. Interval decrease in size in the retroperitoneal mass compared to the prior study. 2. Interval development of mild interstitial pulmonary edema and small bilateral pleural effusions. 3. Moderate body wall edema and a small amount of ascites has also progressed. 4. Mild bowel wall thickening involving the duodenum and proximal jejunum. This is nonspecific and co uld be due to the patient's diffuse edematous state versus a mild enteritis. 5. Additional findings as described above. ACT 112: Negative or not required by law. Electronically signed by: Jhoan Alvarez M.D. 01/13/2022 11:23 AM
[2022-01-13 11:44] LABS: Appearance Urine Clear (Clear); Bilirubin Urine Negative (Negative); Blood Urine Negative (Negative); Color Urine Yellow; Glucose Urine UA Negative (Negative); Ketones Urine Negative (Negative); Leukocyte Esterase Urine Negative (Negative); Nitrite Urine Negative (Negative); Protein Urine Negative (Negative); Specific Gravity Urine 1.016 (1.000-1.030); Urobilinogen Urine Negative (Negative)
[2022-01-13 11:54] LABS: Influenza A virus by PCR Negative (Neg); Influenza B virus by PCR Negative (Neg); RSV by PCR Negative (Neg); SARS CoV2 RNA(COVID-19) InHosp NEGATIVE (Negative)
[2022-01-13 12:11] LABS: Alanine Aminotransferase 25 U/L (7-52); Albumin Level 3.1 gm/dl (3.4-5.0); Alkaline Phosphatase 65 U/L (34-104); Anion Gap 8 (3-11); Aspartate Aminotransferase 34 U/L (13-39); BUN Creatinine Ratio 21.5 (10-20); Bilirubin,Total 0.9 mg/dl (0.2-1.0); Blood Urea Nitrogen 41 mg/dl (6-23); Calcium 8.5 mg/dl (8.5-10.1); Carbon Dioxide 20 mmol/L (21-32); Chloride 108 mmol/L (98-107); Est GFR (African American) 37.5 ml/min; Est GFR (Non-African American) 32.4 ml/min; Glucose 164 mg/dl (70-99(Fasting)); Lipase 75 U/L (11-82); Potassium 4.5 mmol/L (3.5-5.1); Sodium 136 mmol/L (136-145); Total Protein 6.1 gm/dl (6.0-8.3)
[2022-01-13 12:36] LABS: Hematocrit (blood only) 25.9 % (42-52); Hemoglobin 8.3 g/dL (14.0-18.0); Mean Corpuscular Hemoglobin 32.8 pg (25-34); Mean Corpuscular Volume 102.4 fL (80-100); Platelet Count 92 K/uL (130-400); RDW Coefficient of Variation 18.8 % (11.5-14.5); RDW Standard Deviation 70.4 fL (36.4-46.3); Red Blood Count 2.53 M/uL (4.7-6.1); White Blood Count 3.39 K/uL (4.8-10.8)
[2022-01-13 12:37] LABS: Anisocytosis Present; Basophils # (auto) 0.01 K/uL (0-0.2); Basophils % (auto) 0.3 %; Eosinophils # (auto) 0.03 K/uL (0-0.5); Eosinophils % (auto) 0.9 %; Lymphocytes # (auto) 0.42 K/uL (1.2-3.4); Lymphocytes % (auto) 12.4 %; Macrocytosis Present; Monocytes # (auto) 0.04 K/uL (0.11-0.59); Monocytes % (auto) 1.2 %; Neutrophils # (auto) 2.89 K/uL (1.4-6.5); Neutrophils % (auto) 85.2 %; Platelet Estimate Decreased (Normal)
--- NOTE | 2022-01-13 12:40 | History & Physical Report ---
Date of Service January 13, 2022 Assessment & Plan (1) Abdominal pain: Plan: With diffuse abdominal pain, nausea/vomiting that came on acutely and is severe in nature This is in the setting of immune suppression currently on chemotherapy With chills at home but no fevers here, no neutropenia here CT abdomen/pelvis with nonspecific mild bowel thickening in the duodenum and proximal jejunum secondary to diffuse edematous state versus mild enteritis, otherwise nothing acute With concern for abdominal exam with diffuse tenderness out of proportion to what is expected with CT findings-concern for mesenteric ischemia His elevated creatinine prohibits him from having CT angiogram abdomen/pelvis without risking worsening renal disease-discussed with patient and his -Admit to medical floor with telemetry -Check lactate stat and consult general surgery now-discussed the case with Dr. Howard on the phone -Serial abdominal exams -IV Dilaudid as needed for pain-avoid morphine in the setting of CKD -Start IV Zosyn as he is immune suppressed and could potentially have peritonitis -Keep n.p.o. for now -IV Zosyn as needed for nausea -Will give very gentle LR at 70 mL/h x 2 L but discontinue if develops any respiratory distress given his history of ischemic cardiomyopathy-he will be n.p.o. 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 as above Follow clinically (6) Diabetes mellitus: Plan: Hold home Janumet would not recommend restarting metformin in the setting of CKD stage III-IV with GFR less than 30 Hold home Sitagliptin and when restarted should be at the 25 mg daily dosed for GFR less than 30 Hold home Victoza Give NovoLog sliding scale, check blood sugar every 6 hours while n.p.o. Check hemoglobin A1c in the morning (7) CAD (coronary atherosclerotic disease): Plan: Status post CABG No ongoing chest pain, no ischemic changes on ECG Continue home aspirin, carvedilol Not on statin (8) Presence of single chamber implantable cardioverter-defibrillator (ICD): Plan: Placed for history of V. fib and VT Follows with cardiology at [facility] No acute issues Continue amiodarone (9) Chronic kidney disease, stage III (moderate): Plan: With CKD stage III-IV Creatinine actually slightly below baseline today at 1.9 -Avoid nephrotoxins -renally dose meds when appropriate-note should be discontinued from metformin and lower dose of Sitagliptin as above -follow BMP -Holding Lasix for n.p.o. status and nausea/vomiting (10) Atrial flutter: Plan: Remote history of such and has never been on anticoagulation due to subarachnoid hemorrhage and minimal recurrence of atrial flutter Follows with cardiology In a sinus rhythm here Continue carvedilol (11) Obstructive sleep apnea: Plan: His will bring in his BiPAP from home Plan: DVT prophylaxis-SCDs only in case of need for intervention surgically Disposition-admit to medical floor with telemetry, expect a least a 2 midnight stay DNR/DNI as per discussion with patient and his at the bedside History of Present Illness Chief Complaint: Nausea/vomiting, abdominal pain Primary Care Provider: Josafat Kohler, This patient is an 81-year-old male with history of metastatic testicular cancer (mixed germ cell type with retroperitoneal lymphadenopathy conglomeration) currently on chemotherapy with cisplatin and etoposide, CKD stage III, CAD s/p 3V CABG 1998, DM2, HTN, SVT, atrial flutter and ventricular fibrillation s/p ICD, ischemic cardiomyopathy, STAN on CPAP, depression, and peripheral edema, who presents to the ER with abdominal pain and nausea/vomiting. He recently received his second round of chemotherapy this week at the cancer center. He was there today for labs and chemotherapy and was sent to the ER from the cancer center for the current symptoms. He reports acute onset of abdominal pain at 815 this morning after drinking coffee for breakfast. The abdominal pain is diffuse and severe, 10/10 on the pain scale. His pain is worse with any movement or even taking a deep breath. He did vomit 3 times and it was nonbloody. He had 1 bowel movement this morning that was nonbloody. He has been taking loperamide and Pepto-Bismol to help with loose stools from chemotherapy for the last 6 weeks. He has been having chills but no fevers although his who is a nurse reports that he felt warm to the touch at home. He does feel slightly improved with pain since being given IV morphine and the nausea has improved somewhat with IV Zofran. His CT abdomen/pelvis showed moderate body wall edema and small amount of progressed ascites, mild bowel wall thickening involving duodenum and proximal jejunum that is nonspecific-could be related to diffuse edematous state versus mild enteritis, mild pulmonary edema and small bilateral pleural effusions, as well as an interval decrease in size of the retroperitoneal mass compared to prior. No bowel obstruction. His labs were all fairly stable to improved from previous with chronic pancytopenia from chemotherapy, but ANC normal at 3380. With creatinine 1.9 which is improved from previous, with increased BUN from previous at 41. LFTs and lipase normal. A COVID/RSV/influenza PCR test was negative. In the ER, he was given 1 dose of IV morphine and 1 dose of IV Zosyn as well as 250 mL of normal saline and hospitalist service was consulted for admission for nausea/vomiting and abdominal pain. I am concerned that his physical exam is out of proportion to the CT abdomen/pelvis findings and I am concerned for mesenteric ischemia. He cannot have a CT angiogram the abdomen/pelvis due to CKD stage III-IV. A lactate was ordered and general surgery consultation placed at the time of admission. Allergies Allergy/AdvReac Type Severity Reaction Status Date / Time No Known Drug Allergies Allergy Verified 12/22/21 11:18 Home Medications Medication Instructions Recorded Confirmed Type cyanocobalamin (vitamin B-12) 5,000 mcg PO HS 11/13/18 01/13/22 History 5,000 mcg capsule multivitamin 1 tab PO BID tab 03/04/19 01/13/22 History aspirin 81 mg tablet,delayed 81 mg PO QAM 07/05/20 01/13/22 History release lutein 25 mg-zeaxanthin 5 mg 1 cap PO HS 11/05/20 01/13/22 History capsule liraglutide 0.6 mg/0.1 mL (18 mg/3 1.2 mg SQ QAM #18 ml 04/21/21 01/13/22 Rx mL) subcutaneous pen injector (Victoza 2-Ronen) krill oil 500 mg capsule 500 mg PO HS cap 07/18/21 01/13/22 History carvedilol 12.5 mg tablet 12.5 mg PO BID #180 tab 08/29/21 01/13/22 Rx gabapentin 100 mg capsule 100 mg PO HS #90 cap 10/19/21 01/13/22 Rx amiodarone 200 mg tablet 200 mg PO BID #180 tab 11/04/21 01/13/22 Rx pen needle,diabetic dual safty 30 #100 ea 11/07/21 01/13/22 Rx gauge x 3/16" (BD AutoShield Duo Pen Needle) tamsulosin 0.4 mg capsule 0.4 mg PO HS #30 cap 11/08/21 01/13/22 Rx ondansetron 4 mg disintegrating 4 mg PO Q8H PRN #30 tab 11/11/21 01/13/22 Rx tablet sitagliptin 50 mg-metformin 1,000 1 tab PO BID #180 tab 11/17/21 01/13/22 Rx mg tablet (Janumet) furosemide 20 mg tablet (Lasix) 20 mg PO QAM 12/16/21 01/13/22 History prochlorperazine maleate 10 mg 10 mg PO Q6H PRN 12/16/21 01/13/22 History tablet Past Med/Surg History Medical History (Updated 01/13/22 @ 13:27 by Maida Hunt MD) Atrial flutter Presented to the emergency room on August 16, 2020 after syncopal episode; arrhythmia identified on arrival- based on his ICD evaluation, converted with an ICD shock and "seems to have remained in sinus rhythm. His current interrogation demonstrates no further atrial flutter since that shock." No sycnope since that time (Per cardio note 07/18/21) Benign prostatic hyperplasia CAD (coronary artery disease) H/O IA 1988, S/P CABG 3 vessel 1998 Chronic kidney disease, stage III (moderate) Depression HX Diabetes mellitus, type 2 Germ cell cancer Reason for port placement - on chemo H/O acute myocardial infarction 1988 History of subarachnoid hemorrhage History of ventricular fibrillation s/p ICD [place] (hard of hearing) Hyperlipidemia ICD (implantable cardioverter-defibrillator) in place INITIALLY IMPLANTED 2002 ; GENERATOR CHANGE 2011 AND DECEMBER 02, 2019- [employer] Ischemic cardiomyopathy (Unknown) S/p ICD implantation EF 40% per most recent echo 08/2020 Obstructive sleep apnea On CPAP Retroperitoneal lymphadenopathy SNHL (sensorineural hearing loss) Testicular cancer with mets to the lymph nodes. Needle biopsy at [facility] dx 11/2021. Surgical History Difficult airway for intubation PT REPORTS WAS TOLD PT WAS DIFFICULT INTUBATION - UNKNOWN FURTHER DETAILS - ? SURGERY WAS TOLD THIS- POSSIBLY BYPASS SURGERY PER -PER PT 30+ YRS AGO? H/O tympanomastoidectomy RIGHT 11/12/20 [facility] History of adenoidectomy History of cardiac cath PRIOR TO HEART SURGERY, [facility] - NO STENT(S) History of cataract surgery R/L History of colonoscopy History of coronary artery bypass graft 3 VESSELS 1998 History of cystoscopy REMOVAL KIDNEY STONE History of laminectomy History of nasal septoplasty History of tonsillectomy and adenoidectomy History of tympanomastoidectomy (~12/2020) LEFT Implantation of internal cardiac defibrillator (05/02/12) Port-A-Cath in place (12/22/21) Insertion of Access Port Right Subclavian with Fluoroscopy(Right) - Ivan Peacock, 12/22/2021 S/P ICD (internal cardiac defibrillator) procedure Placed 2002, generator change 2011 and 2019 Family History Mother Breast cancer Family history of diabetes mellitus Grandmother (Maternal) No problems noted. Grandmother (Paternal) Myocardial infarction Breast cancer Father Myocardial infarction Brother Brain cancer Sister Cancer Denies family history of Ovarian cancer Prostate cancer Colorectal cancer Social History Smoking Status: Former smoker Tobacco Type: Cigarettes packs per day: 2; Years Smoked: 31; Second Hand Exposure: No; Hx Alcohol Use: Yes (stopped use in 1976) Hx Substance Use: No Preferred Language: Polish Communication Ability: Effective Visual Impairment: No Limitations Hearing Ability: Normal Shredder Picker Required: No Beliefs That Will Affect Care: None marital status: Current Living Situation: Spouse current occupational status: 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 Has chronic shortness of breath. Has had a splitting of his urinary stream similar to what he has had in the past with kidney stones, but no hematuria. Physical Exam Constitutional: WD/WN, vitals as above Eyes: PERRL, conjunctivae normal, anicteric sclerae ENMT: external ear and nose normal, oropharynx normal Neck: trachea midline, no thyromegaly Respiratory: normal respiratory effort, lungs clear to auscultation Cardiovascular: Rate/Rhythm: regular rate and regular rhythm Heart Sounds: normal S1 and normal S2; no murmur Extremities: + edema (2+ pitting edema of the feet and legs bilaterally to the knees) Chest (Breasts): Chest: normal inspection of chest Gastrointestinal (Abdomen): Inspection/Auscultation: abdomen normal to inspection, + abdomen distended (Moderately distended) and + abdominal edema; + abnormal bowel sounds (Hypoactive), no visible herniation and Haque-Mendoza sign absent Percussion/Palpation: + abdomen tender (Diffusely tender with guarding); no hepatosplenomegaly and no hernia Musculoskeletal: Extremities: extremities normal to inspection; no cyanosis and no clubbing Skin: no rashes, warm and dry Neurologic: moves all extremities and awake; no focal motor deficits Psychiatric: A+Ox3, euthymic affect Results & Data Results & Data ([facility]) Vital Signs (Past 12 Hours) Vital Signs Temp Pulse Pulse Resp BP BP Pulse Ox 01/13/22 12:00 72 19 123/78 94 01/13/22 10:41 74 16 118/55 L 96 01/13/22 09:49 36.4 C L 72 20 141/64 H 97 Laboratory Results 01/13/22 01/13/22 01/13/22 Range/Units 11:33 11:33 11:33 WBC Pending RBC Pending Hgb Pending Hct Pending MCV Pending MCH Pending MCHC 32.0 (32-36) g/dL Plt Count Pending Sodium 136 (136-145) mmol/L Potassium 4.5 (3.5-5.1) mmol/L Chloride 108 H (98-107) mmol/L Carbon Dioxide 20 L (21-32) mmol/L Anion Gap 8 (3-11) BUN 41 H (6-23) mg/dl Creatinine 1.91 H (0.6-1.4) mg/dl Est Cr Clr Drug Dosing Not Reportable Est GFR ( Amer) 37.5 ml/min Est GFR (Non-Af Amer) 32.4 ml/min BUN/Creatinine Ratio 21.5 H (10-20) Glucose 164 H (70-99(Fasting)) mg/dl Calcium 8.5 (8.5-10.1) mg/dl Total Bilirubin 0.9 (0.2-1.0) mg/dl AST 34 (13-39) U/L ALT 25 (7-52) U/L Alkaline Phosphatase 65 (34-104) U/L Troponin I High Sens 11.2 (0-20) pg/ml Total Protein 6.1 (6.0-8.3) gm/dl Albumin 3.1 L (3.4-5.0) gm/dl Globulin 3.0 (2.5-4.0) gm/dl Albumin/Globulin Ratio 1.0 (0.9-2) Lipase 75 (11-82) U/L Urine Color Urine Appearance (Clear) Urine pH (4.5-7.5) Ur Specific [place] (1.000-1.030) Urine Protein (Negative) Urine Glucose (UA) (Negative) Urine Ketones (Negative) Urine Blood (Negative) Urine Nitrite (Negative) Urine Bilirubin (Negative) Urine Urobilinogen (Negative) Ur Leukocyte Esterase (Negative) SARS-CoV-2 (PCR) (Negative) Influenza Type A (PCR) (Neg) Influenza Type B (PCR) (Neg) RSV (RT-PCR) (Neg) 01/13/22 01/13/22 Range/Units 11:24 10:30 WBC RBC Hgb Hct MCV MCH MCHC (32-36) g/dL Plt Count Sodium (136-145) mmol/L Potassium (3.5-5.1) mmol/L Chloride (98-107) mmol/L Carbon Dioxide (21-32) mmol/L Anion Gap (3-11) BUN (6-23) mg/dl Creatinine (0.6-1.4) mg/dl Est Cr Clr Drug Dosing Est GFR ( Amer) ml/min Est GFR (Non-Af Amer) ml/min BUN/Creatinine Ratio (10-20) Glucose (70-99(Fasting)) mg/dl Calcium (8.5-10.1) mg/dl Total Bilirubin (0.2-1.0) mg/dl AST (13-39) U/L ALT (7-52) U/L Alkaline Phosphatase (34-104) U/L Troponin I High Sens (0-20) pg/ml Total Protein (6.0-8.3) gm/dl Albumin (3.4-5.0) gm/dl Globulin (2.5-4.0) gm/dl Albumin/Globulin Ratio (0.9-2) Lipase (11-82) U/L Urine Color Yellow Urine Appearance Clear (Clear) Urine pH 5.0 (4.5-7.5) Ur Specific [place] 1.016 (1.000-1.030) Urine Protein Negative (Negative) Urine Glucose (UA) Negative (Negative) Urine Ketones Negative (Negative) Urine Blood Negative (Negative) Urine Nitrite Negative (Negative) Urine Bilirubin Negative (Negative) Urine Urobilinogen Negative (Negative) Ur Leukocyte Esterase Negative (Negative) SARS-CoV-2 (PCR) NEGATIVE (Negative) Influenza Type A (PCR) Negative (Neg) Influenza Type B (PCR) Negative (Neg) RSV (RT-PCR) Negative (Neg) Diagnostic Findings Abdomen/Pelvis CT 01/13/22 10:[address] WITHOUT CONTRAST CT DOSE: 1082.37 mGy.cm HISTORY: Generalized abdominal pain. Vomiting. TECHNIQUE: Multiaxial CT images of the abdomen and pelvis were performed without contrast. A dose lowering technique was utilized adhering to the principles of ALARA. COMPARISON STUDY: Abdomen and pelvis CT 11/30/2021. FINDINGS: Mild interlobular septal thickening at the lung bases likely representing mild pulmonary edema and the background of congestive change. There are patchy densities within the lung bases posteriorly which may represent atelectasis. Small bilateral pleural effusions have developed in the interval. The heart is mildly enlarged. Partially visualized pacemaker wires are present. No pneumoperitoneum. No pneumatosis. Old, healed left-sided rib fractures. There are poststernotomy changes. Small fat-containing midline epigastric hernia. Moderate body wall edema. Slightly hyperdense liver, unchanged. Stable 1.2 cm hy podense focus within the left hepatic lobe. The unenhanced spleen, adrenal glands, and pancreas appear unremarkable. There is a punctate stone within the left kidney. No ureteral stones. No hydronephrosis. Mild thickening of the majority of the duodenum and jejunum, unchanged. Normal bladder. Small amount of ascites which has progressed. Subtle nodular contour to the liver consistent with mild cirrhosis. Stable 12 mm nodule posterior to the liver on image 166. Calcified plaque within the normal caliber abdominal aorta. Soft tissue retroperitoneal mass has decreased in size in the interval. The dominant component adjacent to the IVC currently measures approximately 5.3 x 3.3 cm. This previously measured 7.5 x 4.7 cm. No evidence for bowel obstruction. Colonic diverticulosis. No evidence for acute diverticulitis. Normal appendix. The gallbladder is decompressed. IMPRESSION: 1. Interval decrease in size in the retroperitoneal mass compared to the prior study. 2. Interval development of mild interstitial pulmonary edema and small bilateral pleural effusions. 3. Moderate body wall edema and a small amount of ascites has also progressed. 4. Mild bowel wall thickening involving the duodenum and proximal jejunum. This is nonspecific and could be due to the patient's diffuse edematous state versus a mild enteritis. 5. Additional findings as described above. ACT 112: Negative or not required by law. Electronically signed by: Jhoan Alvarez M.D. 01/13/2022 11:23 AM Chest X-Ray 01/13/22 10:21 XR chest 1V portable CLINICAL HISTORY: emesis COMPARISON STUDY: Chest CT October 2021. Chest radiograph December 22, 2021. FINDINGS: Left subclavian pacer/AICD is in place. There is a right subclavian [id number]. Mediastinal wires are noted. Cardiomegaly is unchanged. There is pulmonary vascular congestion with possible mild pulmonary edema. No pneumothorax or pleural effusion is noted. Old left-sided rib fractures are noted. IMPRESSION: Cardiomegaly. Pulmonary vascular congestion with possible mild pulmonary edema. ACT 112: Negative or not required by law. Electronically signed by: Rick Treadwell M.D. 01/13/2022 11:02 AM ECG Additional Comments: ECG on 01/13/2022 at 10:33 AM with normal sinus rhythm, rate 74, nonspecific ST and T wave abnormality in inferior and lateral leads, unchanged from previous Code Status & VTE Plan Code Status DNR/DNI as discussed with patient with his at the bedside VTE Prophylaxis Plan VTE Prophylaxis will be ordered: Yes PG Care Time/CCT Total # of Minutes Spent Total Time Spent with Patient: Total time spent is greater than 50% in coordination of care (as documented) at patient's floor/unit and/or counseling patient: Coding Level of Care Code 97057 Initial Inpt Care Lvl 3 Diagnoses Abdominal pain R10.84 Abdominal location: generalized Vomiting R11.2 Nausea presence: with nausea Vomiting type: unspecified Diabetes mellitus E11.22; N18.3 Chronic kidney disease stage: stage 3 (moderate) Diabetes mellitus complication detail: with chronic kidney disease Diabetes mellitus complication status: with kidney complications Diabetes mellitus longterm insulin use: without longterm use Diabetes mellitus type: type 2 CAD (coronary atherosclerotic disease) I25.10 Presence of single chamber implantable cardioverter-defibrillator (ICD) Z95.810 Chronic kidney disease, stage III (moderate) N18.3 Atrial flutter I48.3 Atrial flutter type: typical Germ cell tumor C80.1 Obstructive sleep apnea G47.33 Pancytopenia due to antineoplastic chemotherapy D61.810; T45.1X5A Anasarca R60.1 (1) Diabetes mellitus Chronic kidney disease stage: stage 3 (moderate) Diabetes mellitus complication detail: with chronic kidney disease Diabetes mellitus complication status: with kidney complications 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
[2022-01-13] MEDS ORDERED: PIPERACILLIN/TAZOBACTAM 3.375 GM in DEXTROSE 5% 100 ML/100 ML BAG IV STA (13:17)
--- NOTE | 2022-01-13 13:49 | Surgery Consultation ---
Date of Consultation January 13, 2022 Assessment & Plan (1) Pancytopenia due to antineoplastic chemotherapy: (2) Abdominal pain: Sudden onset this morning. No acute findings at this time, lactate pending. HR and BP normal. Will continue to follow. Supervising Physician Co-Signing Physician Notes I personally saw and evaluated the patient with Pino Bhat PA-C and agree with the assessment and plan. 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 Had steak and potato dinner last night. Some chills today which he has also been having at night, no fever. No diarrhea. Allergies Allergy/AdvReac Type Severity Reaction Status Date / Time No Known Drug Allergies Allergy Verified 12/22/21 11:18 Home Medications Medication Instructions Recorded Confirmed Type cyanocobalamin (vitamin B-12) 5,000 mcg PO HS 11/13/18 01/13/22 History 5,000 mcg capsule multivitamin 1 tab PO BID tab 03/04/19 01/13/22 History aspirin 81 mg tablet,delayed 81 mg PO QAM 07/05/20 01/13/22 History release lutein 25 mg-zeaxanthin 5 mg 1 cap PO HS 11/05/20 01/13/22 History capsule liraglutide 0.6 mg/0.1 mL (18 mg/3 1.2 mg SQ QAM #18 ml 04/21/21 01/13/22 Rx mL) subcutaneous pen injector (Victoza 2-Ronen) krill oil 500 mg capsule 500 mg PO HS cap 07/18/21 01/13/22 History carvedilol 12.5 mg tablet 12.5 mg PO BID #180 tab 08/29/21 01/13/22 Rx gabapentin 100 mg capsule 100 mg PO HS #90 cap 10/19/21 01/13/22 Rx amiodarone 200 mg tablet 200 mg PO BID #180 tab 11/04/21 01/13/22 Rx pen needle,diabetic dual safty 30 #100 ea 11/07/21 01/13/22 Rx gauge x 3/16" (BD AutoShield Duo Pen Needle) tamsulosin 0.4 mg capsule 0.4 mg PO HS #30 cap 11/08/21 01/13/22 Rx ondansetron 4 mg disintegrating 4 mg PO Q8H PRN #30 tab 11/11/21 01/13/22 Rx tablet sitagliptin 50 mg-metformin 1,000 1 tab PO BID #180 tab 11/17/21 01/13/22 Rx mg tablet (Janumet) furosemide 20 mg tablet (Lasix) 20 mg PO QAM 12/16/21 01/13/22 History prochlorperazine maleate 10 mg 10 mg PO Q6H PRN 12/16/21 01/13/22 History tablet Patient History Medical History Atrial flutter Presented to the emergency room on August 16, 2020 after syncopal episode; arrhythmia identified on arrival- based on his ICD evaluation, converted with an ICD shock and "seems to have remained in sinus rhythm. His current interrogation demonstrates no further atrial flutter since that shock." No sycnope since that time (Per cardio note 07/18/21) Benign prostatic hyperplasia CAD (coronary artery disease) H/O PA 1988, S/P CABG 3 vessel 1998 Chronic kidney disease, stage III (moderate) Depression HX Diabetes mellitus, type 2 Germ cell cancer Reason for port placement - on chemo H/O acute myocardial infarction 1988 History of subarachnoid hemorrhage History of ventricular fibrillation s/p ICD ANGOON (hard of hearing) Hyperlipidemia ICD (implantable cardioverter-defibrillator) in place INITIALLY IMPLANTED 2002 ; GENERATOR CHANGE 2011 AND DECEMBER 02, 2019- [place] Ischemic cardiomyopathy (Unknown) S/p ICD implantation EF 40% per most recent echo 08/2020 Obstructive sleep apnea On CPAP Retroperitoneal lymphadenopathy SNHL (sensorineural hearing loss) Testicular cancer with mets to the lymph nodes. Needle biopsy at [facility] dx 11/2021. Surgical History Difficult airway for intubation PT REPORTS WAS TOLD PT WAS DIFFICULT INTUBATION - UNKNOWN FURTHER DETAILS - ? SURGERY WAS TOLD THIS- POSSIBLY BYPASS SURGERY PER -PER PT 30+ YRS AGO? H/O tympanomastoidectomy RIGHT 11/12/20 [facility] History of adenoidectomy History of cardiac cath PRIOR TO HEART SURGERY, [facility] - NO STENT(S) History of cataract surgery R/L History of colonoscopy History of coronary artery bypass graft 3 VESSELS 1998 History of cystoscopy REMOVAL KIDNEY STONE History of laminectomy History of nasal septoplasty History of tonsillectomy and adenoidectomy History of tympanomastoidectomy (~12/2020) LEFT Implantation of internal cardiac defibrillator (05/02/12) Port-A-Cath in place (12/22/21) Insertion of Access Port Right Subclavian with Fluoroscopy(Right) - Ivan Peacock DO 12/22/2021 S/P ICD (internal cardiac defibrillator) procedure Placed 2002, generator change 2011 and 2019 Family History Mother Breast cancer Family history of diabetes mellitus Grandmother (Maternal) No problems noted. Grandmother (Paternal) Myocardial infarction Breast cancer Father Myocardial infarction Brother Brain cancer Sister Cancer Denies family history of Ovarian cancer Prostate cancer Colorectal cancer Social History Smoking Status: Former smoker Tobacco Type: Cigarettes packs per day: 2; Years Smoked: 31; Cigarettes Per Day: 2.5; Second Hand Exposure: No; Do You Dip or Chew Tobacco: No; Tobacco Cessation Education Requested by Patient: No Hx Alcohol Use: No Hx Substance Use: Yes Last Used Substance: Days (ago) Preferred Language: Fijian Communication Ability: Effective Visual Impairment: No Limitations Hearing Ability: Normal 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 Beliefs That Will Affect Care: None marital status: Current Living Situation: Spouse current occupational status: 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 How many Children do You have: 2 Other Information That Helps Us Care for You: No Feels Safe at Home: Yes Safety Concerns: Feels Safe At This Time Childhood Exposure to Second-Hand Smoke: No Diet Comment: "go low" Dental Care, Regularly: Yes Physical Activity Frequency: 1-2 Times per Week Seatbelt Use: always Sunscreen Use: No Assistive Devices: Cane, CPAP, Denture - Lower, Glasses, Hearing Aid - Left and Walker Review of Systems Constitutional: + chills; no fever Gastrointestinal: + abdominal pain, + nausea and + vomiting; no coffee ground emesis, no hematemesis, no change in bowel habits, no diarrhea/loose stools and no blood in stools Physical Exam Constitutional: WD/WN, vitals as above Respiratory: normal respiratory effort; no respiratory distress Cardiovascular: RRR, no murmur, no edema Rate/Rhythm: regular rate Extremities: no edema Gastrointestinal (Abdomen): Inspection/Auscultation: abdomen not distended Percussion/Palpation: + abdomen tender, + guarding and abdomen soft Results & Data ([facility]) Vital Signs (Past 12 Hours) Vital Signs Temp Pulse Pulse Resp BP BP Pulse Ox 01/13/22 12:00 72 19 123/78 94 01/13/22 10:41 74 16 118/55 L 96 01/13/22 09:49 36.4 C L 72 20 141/64 H 97 PG Care Time/CCT Total # of Minutes Spent Total Time Spent with Patient: Total time spent is greater than 50% in coordination of care (as documented) at patient's floor/unit and/or counseling patient: Coding Level of Care Code 06318 Inpt Consult Level 3 Diagnoses Pancytopenia due to antineoplastic chemotherapy D61.810; T45.1X5A Abdominal pain R10.84 Abdominal location: generalized (1) Abdominal pain Abdominal location: generalized Qualified Code(s): R10.84 - Generalized abdominal pain
--- NOTE | 2022-01-13 13:52 | Electrocardiogram Report ---
Test Reason : Blood Pressure : / mmHG Vent. Rate : 074 BPM Atrial Rate : 074 BPM P-R Int : 176 ms QRS Dur : 100 ms QT Int : 400 ms P-R-T Axes : 000 084 133 degrees QTc Int : 444 ms Normal sinus rhythm Nonspecific ST and T wave abnormality Abnormal ECG When compared with ECG of 25-OCT-2021 12:36, Premature ventricular complexes are no longer Present Criteria for Inferior infarct are no longer Present QT has shortened Confirmed by Jaime Serra ([id number]) on 01/13/2022 1:51:53 PM Referred By: REFERRED SELF Confirmed By:Jaime Serra
[2022-01-13] MEDS ORDERED: HYDROmorphone INJ 0.5 MG/0.5 ML SYR IV PRN (17:47)
[2022-01-13] MEDS ORDERED: CARBOHYDRATES FOR HYPOGLYCEMIA PO PRN (17:47)
[2022-01-13] MEDS ORDERED: GLUCAGON FOR INJ 1 MG VIAL SQ PRN (17:47)
[2022-01-13] MEDS ORDERED: ONDANSETRON INJ 2 MG/ML 2 ML VIAL IV PRN (17:47)
[2022-01-13] MEDS ORDERED: INSULIN ASPART PER UNIT SC SCH (17:47)
[2022-01-13] MEDS ORDERED: DEXTROSE 50% 50 ML SYRINGE IV PRN (17:47)
[2022-01-13] MEDS ORDERED: GLUCOSE 10 TABS/TUBE PO PRN (17:47)
[2022-01-13] MEDS ORDERED: PIPERACILL/TAZOBAC CONSULT ACTIVE PRN (17:47)
[2022-01-13] MEDS ORDERED: GLUCOSE 40% GEL 15 GM TUBE PO PRN (17:47)
[2022-01-13] MEDS ORDERED: ACETAMINOPHEN 325 MG TAB PO PRN (17:47)
[2022-01-13] MEDS: LACTATED RINGER'S 1,000 ML IV SCH (18:45)
[2022-01-13] MEDS: carvediloL 12.5 MG TAB PO SCH (20:52)
[2022-01-13] MEDS: TAMSULOSIN HCL 0.4 MG CAP PO SCH (20:52)
[2022-01-13] MEDS: AMIODARONE 200 MG TAB PO SCH (20:52)
[2022-01-13] MEDS: PIPERACILLIN/TAZOBACTAM 3.375 GM in DEXTROSE 5% 100 ML IV SCH (21:00)
[2022-01-14] MEDS: INSULIN ASPART PER UNIT SC SCH ×4 (00:20→20:16)
[2022-01-14] MEDS: PIPERACILLIN/TAZOBACTAM 3.375 GM in DEXTROSE 5% 100 ML IV SCH ×3 (04:19→20:21)
--- NOTE | 2022-01-14 05:38 | Surgery Progress Note ---
Date of Service January 14, 2022 Assessment & Plan (1) Abdominal pain: Plan: The patient has been admitted on the hospitalist service: No findings noted on his admission CAT scan that would necessitate surgical intervention His abdominal pain has resolved Check a.m. labs when available If a.m. labs are acceptable and patient continues to be pain-free could consider slowly advancing his diet Admission and Anticipated Discharge Date Admission Date: January 13, 2022 Supervising Physician Co-Signing Physician Notes I personally saw and evaluated the patient with Jv Bear and agree with the assessment and plan. 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 He notes abdominal pain that was present at time of admission has resolved. He denies any nausea or vomiting. He denies any bowel movement or flatus since admission. Physical Exam Gastrointestinal (Abdomen): Abdomen is soft, nontender, and nondistended. There is no pain with palpation Results & Data ([facility]) Vital Signs (Past 12 Hours) Vital Signs Temp Pulse Pulse Resp BP BP Pulse Ox 01/14/22 03:05 36.4 C L 75 16 121/70 90 01/13/22 22:53 36.5 C 76 16 112/59 L 92 01/13/22 22:20 83 01/13/22 20:26 36.7 C 85 18 128/66 96 01/13/22 19:51 82 01/13/22 19:04 78 19 122/71 98 01/13/22 18:00 78 19 122/71 98 01/13/22 17:47 Pulse Ox 01/14/22 03:05 01/13/22 22:53 01/13/22 22:20 01/13/22 20:26 01/13/22 19:51 01/13/22 19:04 01/13/22 18:00 01/13/22 17:47 94 PG Care Time/CCT Total # of Minutes Spent Total Time Spent with Patient: Total time spent is greater than 50% in coordination of care (as documented) at patient's floor/unit and/or counseling patient: Coding Level of Care Code 56462 Subseq Hosp Care Lvl 1 Diagnoses Abdominal pain R10.84 Abdominal location: generalized (1) Abdominal pain Abdominal location: generalized Qualified Code(s): R10.84 - Generalized abdominal pain
[2022-01-14 06:16] LABS: Mean Corpuscular Hgb Conc 33.3 g/dL (32-36)
[2022-01-14 06:40] LABS: Mean Corpuscular Hemoglobin 33.6 pg (25-34); Mean Corpuscular Volume 100.8 fL (80-100); RDW Coefficient of Variation 18.7 % (11.5-14.5); RDW Standard Deviation 68.5 fL (36.4-46.3); Red Blood Count 2.38 M/uL (4.7-6.1); White Blood Count 4.11 K/uL (4.8-10.8)
[2022-01-14 06:44] LABS: Anisocytosis Present; Eosinophils # (auto) 0.02 K/uL (0-0.5); Eosinophils % (auto) 0.5 %; Immature Granulocytes # (auto) 0.02 K/uL (0.00-0.02); Immature Granulocytes % (auto) 0.5 %; Lymphocytes % (auto) 14.6 %; Monocytes # (auto) 0.06 K/uL (0.11-0.59); Monocytes % (auto) 1.5 %; Neutrophils # (auto) 3.41 K/uL (1.4-6.5); Neutrophils % (auto) 82.9 %; Platelet Count 73 K/uL (130-400); Platelet Estimate Decreased (Normal)
[2022-01-14 07:59] LABS: Albumin Globulin Ratio 0.9 (0.9-2); Albumin Level 2.9 gm/dl (3.4-5.0); BUN Creatinine Ratio 19.8 (10-20); Bilirubin,Total 1.5 mg/dl (0.2-1.0); Calcium 8.3 mg/dl (8.5-10.1); Creatinine Clr Calc Pharmacy 34.6 ml/min; Est GFR (African American) 35.1 ml/min; Est GFR (Non-African American) 30.2 ml/min; Globulin 3.1 gm/dl (2.5-4.0); Phosphorus 3.5 mg/dl (2.5-4.9); Potassium 4.6 mmol/L (3.5-5.1)
[2022-01-14 08:54] LABS: Estimated Average Glucose 126 mg/dl
[2022-01-14] MEDS: ASPIRIN 81 MG ECTAB PO SCH (09:31)
[2022-01-14] MEDS: AMIODARONE 200 MG TAB PO SCH ×2 (09:31→20:15)
[2022-01-14] MEDS: carvediloL 12.5 MG TAB PO SCH ×2 (09:31→20:16)
--- NOTE | 2022-01-14 11:09 | Hospitalist Progress Note ---
Date of Service January 14, 2022 Assessment & Plan (1) Abdominal pain: Plan: Diffuse abdominal pain, nausea/vomiting that presented acutely on 01/13/22 and was severe in nature This is in the setting of immunosuppression, currently on chemotherapy Has remained afebrile during his visit; Lactate level 1.5, Lipase 75. CT abdomen/pelvis with nonspecific mild bowel thickening in the duodenum and proximal jejunum secondary to diffuse edematous state versus mild enteritis, otherwise nothing acute Surgery consulted due to concern for mesenteric ischemia, unfortunately CT angio AP cannot be completed due to CKD. Recommend advancing diet as pain is improving. WBC remains stable (decreased due to recent chemo); no evidence of sepsis at this time. - Will advance to CLD starting at lunch, advance as tolerated throughout the day. - IV Dilaudid prn pain; avoid morphine due to CKD. - Continue Zosyn IV for at least an additional 24 hours due to immunosuppressed state, coverage of peritonitis. - Will discontinue IV fluids and monitor volume status closely. 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 Will need to follow up with oncology prior to next cycle of chemo (scheduled for cycle 3 on 01/30/22) (4) Pancytopenia due to antineoplastic chemotherapy: Plan: Follow and give transfusional support as needed Hgb 8.0 - will repeat CBC in the AM and transfuse 2 units for Hgb <8. WBC 4.11, Plt 73K. (5) Anasarca: Plan: With peripheral edema, ascites, pleural effusions and pulmonary edema Secondary to severe protein calorie malnutrition in the setting of chemotherapy Holding home Lasix; will monitor daily weights. (6) Diabetes mellitus: Plan: Hold home Janumet; would not recommend restarting metformin in the setting of CKD stage III-IV with GFR less than 30 Hold home Sitagliptin and when restarted should be at the 25 mg daily dosed for GFR less than 30 Hold home Victoza Give NovoLog sliding scale; glucose checks ACHS. Hgb A1C 6.0 (7) CAD (coronary atherosclerotic disease): Plan: Status post CABG Continue home aspirin, carvedilol Not on statin (8) Presence of single chamber implantable cardioverter-defibrillator (ICD): Plan: Placed for history of V. fib and VT Follows with cardiology at [facility] Continue amiodarone (9) Chronic kidney disease, stage III (moderate): Plan: With CKD stage III-IV Creatinine level 2.02, improved from baseline. -Avoid nephrotoxins -Renally dose meds when appropriate- note should be discontinued from metformin and lower dose of Sitagliptin as above -Holding Lasix; recommend resuming at 20 mg PO daily following discharge. (10) Atrial flutter: Plan: Remote history of such and has never been on anticoagulation due to subarachnoid hemorrhage and minimal recurrence of atrial flutter Follows with cardiology NSR on monitor Continue carvedilol (11) Obstructive sleep apnea: Plan: BiPAP qhs - his brought machine from home Plan: DVT prophylaxis- SCDs & encourage ambulation; start Lovenox 40 mg subQ daily on 01/15/22. Disposition- Med/surg with tele. Discharge on 01/15 if he is tolerating diet and abd pain improved. DNR/DNI as per discussion with patient and his at the bedside Admission and Anticipated Discharge Date Admission Date: January 13, 2022 Supervising Physician Co-Signing Physician Notes Attending Attestation - Chart reviewed in detail, care plan d/w KASHIF Luna. I agree w/ the lawrence components of her documentation. Bola Marsh MD Subjective Mr. Carroll has had improvement in abd pain overnight -- now rated as a 2/10 at rest and 5/10 with palpation. Most recent BM yesterday. SOB is stable, does have chronic LE edema. He remains NPO. Surgery following, recommend advancing diet as abd pain has improved. Unfortunately, CT Abd Angio cannot be performed due to chronic renal failure but likelihood is low at this point as pain has improved and lab work stable. Review of Systems Review of Systems: Constitutional: Negative for weight loss, night sweats, or fever Eyes: Negative for event change of vision ENT: Negative for epistaxis, nasal discharge, sore throat, or deafness Cardiovascular: Negative for anginal type chest pain, palpitations, dizziness, diaphoresis Respiratory: Negative for new shortness of breath,hemoptysis, or purulent cough Gastrointestinal: +Abd pain; Negative for diarrhea, hematemesis, melena, nausea, vomiting, or dyspepsia Integumentary (skin): Negative for rash or jaundice discoloration Genitourinary: Negative for urinary frequency, hematuria, or dysuria Neurological: Negative for weakness, seizure activity, headache, or dizziness Lymphatic/Hematologic: Negative for petechiae, bleeding or new adenopathy Musculoskeletal: Negative for new joint or back pain Allergic/Immunologic: Negative for unusual rash or pruritis Physical Exam Physical Exam: Constitutional: Vitals are stable Respiratory: Lung sounds were generally clear bilaterally. Cardiovascular: Heart was RRR without significant murmur, gallops or rubs. Gastrointestinal: +TTP over general abd. Lymphatic system: There was no palpable peripheral lymphadenopathy. Musculoskeletal System: The musculoskeletal system seemed concordant with age. Skin: The skin was negative for jaundice. Extremities: Negative for edema or erythema Results & Data Results & Data ([facility]) Vital Signs (Past 12 Hours) Vital Signs Temp Pulse Pulse Resp BP Pulse Ox 01/14/22 10:54 36.6 C 66 18 130/72 96 01/14/22 08:14 73 01/14/22 07:00 36.9 C 69 18 103/57 L 94 01/14/22 03:05 36.4 C L 75 16 121/70 90 Laboratory Results 01/14/22 01/14/22 01/14/22 Range/Units 11:17 06:07 05:34 WBC (4.8-10.8) K/uL RBC (4.7-6.1) M/uL Hgb (14.0-18.0) g/dL Hct (42-52) % MCV (80-100) fL MCH (25-34) pg MCHC (32-36) g/dL RDW Std Deviation (36.4-46.3) fL RDW Coeff of David (11.5-14.5) % Plt Count (130-400) K/uL Immature Gran % (Auto) % Neut % (Auto) % Lymph % (Auto) % [place] % (Auto) % Eos % (Auto) % Baso % (Auto) % Neut # (Auto) (1.4-6.5) K/uL Lymph # (Auto) (1.2-3.4) K/uL [place] # (Auto) (0.11-0.59) K/uL Eos # (Auto) (0-0.5) K/uL Baso # (Auto) (0-0.2) K/uL Immature Gran # (Auto) (0.00-0.02) K/uL Platelet Estimate (Normal) Anisocytosis Macrocytosis Sodium (136-145) mmol/L Potassium (3.5-5.1) mmol/L Chloride (98-107) mmol/L Carbon Dioxide (21-32) mmol/L Anion Gap (3-11) BUN (6-23) mg/dl Creatinine (0.6-1.4) mg/dl Est Cr Clr Drug Dosing Est GFR ( Amer) ml/min Est GFR (Non-Af Amer) ml/min BUN/Creatinine Ratio (10-20) Glucose (70-99(Fasting)) mg/dl POC Glucose 167 H 160 H (70-99) mg/dl Estimat Average Glucose 126 mg/dl Hemoglobin A1c 6.0 H (4.5-5.6) % Lactate (0.4-2.0) mmol/L Calcium (8.5-10.1) mg/dl Phosphorus (2.5-4.9) mg/dl Magnesium (1.7-2.4) mg/dl Total Bilirubin (0.2-1.0) mg/dl AST (13-39) U/L ALT (7-52) U/L Alkaline Phosphatase (34-104) U/L Troponin I High Sens (0-20) pg/ml Total Protein (6.0-8.3) gm/dl Albumin (3.4-5.0) gm/dl Globulin (2.5-4.0) gm/dl Albumin/Globulin Ratio (0.9-2) Lipase (11-82) U/L Urine Color Urine Appearance (Clear) Urine pH (4.5-7.5) Ur Specific [place] (1.000-1.030) Urine Protein (Negative) Urine Glucose (UA) (Negative) Urine Ketones (Negative) Urine Blood (Negative) Urine Nitrite (Negative) Urine Bilirubin (Negative) Urine Urobilinogen (Negative) Ur Leukocyte Esterase (Negative) SARS-CoV-2 (PCR) (Negative) Influenza Type A (PCR) (Neg) Influenza Type B (PCR) (Neg) RSV (RT-PCR) (Neg) 01/14/22 01/14/22 01/14/22 Range/Units 05:34 05:34 00:08 WBC 4.11 L (4.8-10.8) K/uL RBC 2.38 L (4.7-6.1) M/uL Hgb 8.0 L (14.0-18.0) g/dL Hct 24.0 L (42-52) % MCV 100.8 H (80-100) fL MCH 33.6 (25-34) pg MCHC 33.3 (32-36) g/dL RDW Std Deviation 68.5 H (36.4-46.3) fL RDW Coeff of David 18.7 H (11.5-14.5) % Plt Count 73 L (130-400) K/uL Immature Gran % (Auto) 0.5 % Neut % (Auto) 82.9 % Lymph % (Auto) 14.6 % [place] % (Auto) 1.5 % Eos % (Auto) 0.5 % Baso % (Auto) 0.0 % Neut # (Auto) 3.41 (1.4-6.5) K/uL Lymph # (Auto) 0.60 L (1.2-3.4) K/uL [place] # (Auto) 0.06 L (0.11-0.59) K/uL Eos # (Auto) 0.02 (0-0.5) K/uL Baso # (Auto) 0.00 (0-0.2) K/uL Immature Gran # (Auto) 0.02 (0.00-0.02) K/uL Platelet Estimate Decreased L (Normal) Anisocytosis Present Macrocytosis Sodium 137 (136-145) mmol/L Potassium 4.6 (3.5-5.1) mmol/L Chloride 108 H (98-107) mmol/L Carbon Dioxide 22 (21-32) mmol/L Anion Gap 7 (3-11) BUN 40 H (6-23) mg/dl Creatinine 2.02 H (0.6-1.4) mg/dl Est Cr Clr Drug Dosing 34.6 Est GFR ( Amer) 35.1 ml/min Est GFR (Non-Af Amer) 30.2 ml/min BUN/Creatinine Ratio 19.8 (10-20) Glucose 162 H (70-99(Fasting)) mg/dl POC Glucose 193 H (70-99) mg/dl Estimat Average Glucose mg/dl Hemoglobin A1c (4.5-5.6) % Lactate (0.4-2.0) mmol/L Calcium 8.3 L (8.5-10.1) mg/dl Phosphorus 3.5 (2.5-4.9) mg/dl Magnesium 2.0 (1.7-2.4) mg/dl Total Bilirubin 1.5 H D (0.2-1.0) mg/dl AST 29 (13-39) U/L ALT 23 (7-52) U/L Alkaline Phosphatase 52 (34-104) U/L Troponin I High Sens (0-20) pg/ml Total Protein 6.0 (6.0-8.3) gm/dl Albumin 2.9 L (3.4-5.0) gm/dl Globulin 3.1 (2.5-4.0) gm/dl Albumin/Globulin Ratio 0.9 (0.9-2) Lipase (11-82) U/L Urine Color Urine Appearance (Clear) Urine pH (4.5-7.5) Ur Specific [place] (1.000-1.030) Urine Protein (Negative) Urine Glucose (UA) (Negative) Urine Ketones (Negative) Urine Blood (Negative) Urine Nitrite (Negative) Urine Bilirubin (Negative) Urine Urobilinogen (Negative) Ur Leukocyte Esterase (Negative) SARS-CoV-2 (PCR) (Negative) Influenza Type A (PCR) (Neg) Influenza Type B (PCR) (Neg) RSV (RT-PCR) (Neg) 01/13/22 01/13/22 01/13/22 Range/Units 20:17 13:25 11:33 WBC (4.8-10.8) K/uL RBC (4.7-6.1) M/uL Hgb (14.0-18.0) g/dL Hct (42-52) % MCV (80-100) fL MCH (25-34) pg MCHC (32-36) g/dL RDW Std Deviation (36.4-46.3) fL RDW Coeff of David (11.5-14.5) % Plt Count (130-400) K/uL Immature Gran % (Auto) % Neut % (Auto) % Lymph % (Auto) % [place] % (Auto) % Eos % (Auto) % Baso % (Auto) % Neut # (Auto) (1.4-6.5) K/uL Lymph # (Auto) (1.2-3.4) K/uL [place] # (Auto) (0.11-0.59) K/uL Eos # (Auto) (0-0.5) K/uL Baso # (Auto) (0-0.2) K/uL Immature Gran # (Auto) (0.00-0.02) K/uL Platelet Estimate (Normal) Anisocytosis Macrocytosis Sodium 136 (136-145) mmol/L Potassium 4.5 (3.5-5.1) mmol/L Chloride 108 H (98-107) mmol/L Carbon Dioxide 20 L (21-32) mmol/L Anion Gap 8 (3-11) BUN 41 H (6-23) mg/dl Creatinine 1.91 H (0.6-1.4) mg/dl Est Cr Clr Drug Dosing Not Reportable Est GFR ( Amer) 37.5 ml/min Est GFR (Non-Af Amer) 32.4 ml/min BUN/Creatinine Ratio 21.5 H (10-20) Glucose 164 H (70-99(Fasting)) mg/dl POC Glucose 216 H (70-99) mg/dl Estimat Average Glucose mg/dl Hemoglobin A1c (4.5-5.6) % Lactate 1.5 (0.4-2.0) mmol/L Calcium 8.5 (8.5-10.1) mg/dl Phosphorus (2.5-4.9) mg/dl Magnesium (1.7-2.4) mg/dl Total Bilirubin 0.9 (0.2-1.0) mg/dl AST 34 (13-39) U/L ALT 25 (7-52) U/L Alkaline Phosphatase 65 (34-104) U/L Troponin I High Sens (0-20) pg/ml Total Protein 6.1 (6.0-8.3) gm/dl Albumin 3.1 L (3.4-5.0) gm/dl Globulin 3.0 (2.5-4.0) gm/dl Albumin/Globulin Ratio 1.0 (0.9-2) Lipase 75 (11-82) U/L Urine Color Urine Appearance (Clear) Urine pH (4.5-7.5) Ur Specific [place] (1.000-1.030) Urine Protein (Negative) Urine Glucose (UA) (Negative) Urine Ketones (Negative) Urine Blood (Negative) Urine Nitrite (Negative) Urine Bilirubin (Negative) Urine Urobilinogen (Negative) Ur Leukocyte Esterase (Negative) SARS-CoV-2 (PCR) (Negative) Influenza Type A (PCR) (Neg) Influenza Type B (PCR) (Neg) RSV (RT-PCR) (Neg) 01/13/22 01/13/22 01/13/22 Range/Units 11:33 11:33 11:24 WBC 3.39 L (4.8-10.8) K/uL RBC 2.53 L (4.7-6.1) M/uL Hgb 8.3 L (14.0-18.0) g/dL Hct 25.9 L (42-52) % MCV 102.4 H (80-100) fL MCH 32.8 (25-34) pg MCHC 32.0 (32-36) g/dL RDW Std Deviation 70.4 H (36.4-46.3) fL RDW Coeff of David 18.8 H (11.5-14.5) % Plt Count 92 L (130-400) K/uL Immature Gran % (Auto) 0.0 % Neut % (Auto) 85.2 % Lymph % (Auto) 12.4 % [place] % (Auto) 1.2 % Eos % (Auto) 0.9 % Baso % (Auto) 0.3 % Neut # (Auto) 2.89 (1.4-6.5) K/uL Lymph # (Auto) 0.42 L (1.2-3.4) K/uL [place] # (Auto) 0.04 L (0.11-0.59) K/uL Eos # (Auto) 0.03 (0-0.5) K/uL Baso # (Auto) 0.01 (0-0.2) K/uL Immature Gran # (Auto) 0.00 (0.00-0.02) K/uL Platelet Estimate Decreased L (Normal) Anisocytosis Present Macrocytosis Present Sodium (136-145) mmol/L Potassium (3.5-5.1) mmol/L Chloride (98-107) mmol/L Carbon Dioxide (21-32) mmol/L Anion Gap (3-11) BUN (6-23) mg/dl Creatinine (0.6-1.4) mg/dl Est Cr Clr Drug Dosing Est GFR ( Amer) ml/min Est GFR (Non-Af Amer) ml/min BUN/Creatinine Ratio (10-20) Glucose (70-99(Fasting)) mg/dl POC Glucose (70-99) mg/dl Estimat Average Glucose mg/dl Hemoglobin A1c (4.5-5.6) % Lactate (0.4-2.0) mmol/L Calcium (8.5-10.1) mg/dl Phosphorus (2.5-4.9) mg/dl Magnesium (1.7-2.4) mg/dl Total Bilirubin (0.2-1.0) mg/dl AST (13-39) U/L ALT (7-52) U/L Alkaline Phosphatase (34-104) U/L Troponin I High Sens 11.2 (0-20) pg/ml Total Protein (6.0-8.3) gm/dl Albumin (3.4-5.0) gm/dl Globulin (2.5-4.0) gm/dl Albumin/Globulin Ratio (0.9-2) Lipase (11-82) U/L Urine Color Yellow Urine Appearance Clear (Clear) Urine pH 5.0 (4.5-7.5) Ur Specific [place] 1.016 (1.000-1.030) Urine Protein Negative (Negative) Urine Glucose (UA) Negative (Negative) Urine Ketones Negative (Negative) Urine Blood Negative (Negative) Urine Nitrite Negative (Negative) Urine Bilirubin Negative (Negative) Urine Urobilinogen Negative (Negative) Ur Leukocyte Esterase Negative (Negative) SARS-CoV-2 (PCR) (Negative) Influenza Type A (PCR) (Neg) Influenza Type B (PCR) (Neg) RSV (RT-PCR) (Neg) 01/13/22 Range/Units 10:30 WBC (4.8-10.8) K/uL RBC (4.7-6.1) M/uL Hgb (14.0-18.0) g/dL Hct (42-52) % MCV (80-100) fL MCH (25-34) pg MCHC (32-36) g/dL RDW Std Deviation (36.4-46.3) fL RDW Coeff of David (11.5-14.5) % Plt Count (130-400) K/uL Immature Gran % (Auto) % Neut % (Auto) % Lymph % (Auto) % [place] % (Auto) % Eos % (Auto) % Baso % (Auto) % Neut # (Auto) (1.4-6.5) K/uL Lymph # (Auto) (1.2-3.4) K/uL [place] # (Auto) (0.11-0.59) K/uL Eos # (Auto) (0-0.5) K/uL Baso # (Auto) (0-0.2) K/uL Immature Gran # (Auto) (0.00-0.02) K/uL Platelet Estimate (Normal) Anisocytosis Macrocytosis Sodium (136-145) mmol/L Potassium (3.5-5.1) mmol/L Chloride (98-107) mmol/L Carbon Dioxide (21-32) mmol/L Anion Gap (3-11) BUN (6-23) mg/dl Creatinine (0.6-1.4) mg/dl Est Cr Clr Drug Dosing Est GFR ( Amer) ml/min Est GFR (Non-Af Amer) ml/min BUN/Creatinine Ratio (10-20) Glucose (70-99(Fasting)) mg/dl POC Glucose (70-99) mg/dl Estimat Average Glucose mg/dl Hemoglobin A1c (4.5-5.6) % Lactate (0.4-2.0) mmol/L Calcium (8.5-10.1) mg/dl Phosphorus (2.5-4.9) mg/dl Magnesium (1.7-2.4) mg/dl Total Bilirubin (0.2-1.0) mg/dl AST (13-39) U/L ALT (7-52) U/L Alkaline Phosphatase (34-104) U/L Troponin I High Sens (0-20) pg/ml Total Protein (6.0-8.3) gm/dl Albumin (3.4-5.0) gm/dl Globulin (2.5-4.0) gm/dl Albumin/Globulin Ratio (0.9-2) Lipase (11-82) U/L Urine Color Urine Appearance (Clear) Urine pH (4.5-7.5) Ur Specific [place] (1.000-1.030) Urine Protein (Negative) Urine Glucose (UA) (Negative) Urine Ketones (Negative) Urine Blood (Negative) Urine Nitrite (Negative) Urine Bilirubin (Negative) Urine Urobilinogen (Negative) Ur Leukocyte Esterase (Negative) SARS-CoV-2 (PCR) NEGATIVE (Negative) Influenza Type A (PCR) Negative (Neg) Influenza Type B (PCR) Negative (Neg) RSV (RT-PCR) Negative (Neg) PG Care Time/CCT Total # of Minutes Spent Total Time Spent with Patient: Total time spent is greater than 50% in coordination of care (as documented) at patient's floor/unit and/or counseling patient: [place] [address] Subseq Hosp Care Lvl 2 Patient Type Established Diagnoses Abdominal pain R10.84 Abdominal location: generalized Vomiting R11.2 Nausea presence: with nausea Vomiting type: unspecified Germ cell tumor C80.1 Pancytopenia due to antineoplastic chemotherapy D61.810; T45.1X5A Anasarca R60.1 Diabetes mellitus E11.22; N18.3 Chronic kidney disease stage: stage 3 (moderate) Diabetes mellitus complication detail: with chronic kidney disease Diabetes mellitus complication status: with kidney complications Diabetes mellitus residential insulin use: without rn long term care use Diabetes mellitus type: type 2 CAD (coronary atherosclerotic disease) I25.10 Presence of single chamber implantable cardioverter-defibrillator (ICD) Z95.810 Chronic kidney disease, stage III (moderate) N18.3 Atrial flutter I48.3 Atrial flutter type: typical Obstructive sleep apnea G47.33 (1) Diabetes mellitus Chronic kidney disease stage: stage 3 (moderate) Diabetes mellitus complication detail: with chronic kidney disease Diabetes mellitus complication status: with kidney complications Diabetes mellitus rn long term care insulin use: without rn long term care use Diabetes mellitus type: type 2 Qualified Code(s): E11.22 - Type 2 diabetes mellitus with diabetic chronic kidney disease; N18.3 - Chronic kidney disease, stage 3 (moderate) (2) Atrial flutter Atrial flutter type: typical Qualified Code(s): I48.3 - Typical atrial flutter (3) Abdominal pain Abdominal location: generalized Qualified Code(s): R10.84 - Generalized abdominal pain (4) Vomiting Nausea presence: with nausea Vomiting type: unspecified Qualified Code(s): R11.2 - Nausea with vomiting, unspecified
[2022-01-14] MEDS ORDERED: Nursing to Pharmacy Communication SCH (16:30)
[2022-01-14] MEDS: TAMSULOSIN HCL 0.4 MG CAP PO SCH (20:16)
[2022-01-14] MEDS: LACTATED RINGER'S 1,000 ML IV SCH (21:42)
[2022-01-15] MEDS: PIPERACILLIN/TAZOBACTAM 3.375 GM in DEXTROSE 5% 100 ML IV SCH ×2 (04:15→12:52)
[2022-01-15] MEDS: ASPIRIN 81 MG ECTAB PO SCH (08:19)
[2022-01-15] MEDS: carvediloL 12.5 MG TAB PO SCH (08:19)
[2022-01-15] MEDS: AMIODARONE 200 MG TAB PO SCH (08:19)
[2022-01-15] MEDS: INSULIN ASPART PER UNIT SC SCH ×2 (08:20→12:49)
[2022-01-15] MEDS ORDERED: ENOXAPARIN INJ 30 MG/0.3 ML SYR SQ SCH (09:00)
[2022-01-15 09:03] LABS: Albumin Globulin Ratio 0.9 (0.9-2); Albumin Level 2.8 gm/dl (3.4-5.0); BUN Creatinine Ratio 17.7 (10-20); Bilirubin,Total 1.1 mg/dl (0.2-1.0); Calcium 8.1 mg/dl (8.5-10.1); Creatinine Clr Calc Pharmacy 37.6 ml/min; Est GFR (African American) 38.7 ml/min; Est GFR (Non-African American) 33.4 ml/min; Globulin 3.1 gm/dl (2.5-4.0); Potassium 4.2 mmol/L (3.5-5.1); Total Protein 5.9 gm/dl (6.0-8.3)
[2022-01-15 09:04] LABS: Hematocrit (blood only) 22.1 % (42-52); Hemoglobin 7.3 g/dL (14.0-18.0); Mean Corpuscular Hemoglobin 33.3 pg (25-34); Mean Corpuscular Volume 100.9 fL (80-100); RDW Coefficient of Variation 18.4 % (11.5-14.5); RDW Standard Deviation 66.3 fL (36.4-46.3); Red Blood Count 2.19 M/uL (4.7-6.1); White Blood Count 5.14 K/uL (4.8-10.8)
[2022-01-15 09:14] LABS: Platelet Estimate Decreased (Normal)
[2022-01-15 09:15] LABS: Platelet Count 45 K/uL (130-400)
--- NOTE | 2022-01-15 11:39 | Discharge Summary ---
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 He recently received his second round of chemotherapy this week at the [facility]. He was there today for labs and chemotherapy and was sent to the ER from the [facility] for the current symptoms. He reports acute onset of abdominal pain at 815 this morning after drinking coffee for breakfast. The abdominal pain is diffuse and severe, 10/10 on the pain scale. His pain is worse with any movement or even taking a deep breath. He did vomit 3 times and it was nonbloody. He had 1 bowel movement this morning that was nonbloody. He has been taking loperamide and Pepto-Bismol to help with loose stools from chemotherapy for the last 6 weeks. He has been having chills but no fevers although his who is a nurse reports that he felt warm to the touch at home. He does feel slightly improved with pain since being given IV morphine and the nausea has improved somewhat with IV Zofran. His CT abdomen/pelvis showed moderate body wall edema and small amount of progressed ascites, mild bowel wall thickening involving duodenum and proximal jejunum that is nonspecific-could be related to diffuse edematous state versus mild enteritis, mild pulmonary edema and small bilateral pleural effusions, as well as an interval decrease in size of the retroperitoneal mass compared to prior. No bowel obstruction. His labs were all fairly stable to improved from previous with chronic pancytopenia from chemotherapy, but ANC normal at 3380. With creatinine 1.9 which is improved from previous, with increased BUN from previous at 41. LFTs and lipase normal. A COVID/RSV/influenza PCR test was negative. In the ER, he was given 1 dose of IV morphine and 1 dose of IV Zosyn as well as 250 mL of normal saline and hospitalist service was consulted for admission for nausea/vomiting and abdominal pain. I am concerned that his physical exam is out of proportion to the CT abdomen/pelvis findings and I am concerned for mesenteric ischemia. He cannot have a CT angiogram the abdomen/pelvis due to CKD stage III-IV. A lactate was ordered and general surgery consultation placed at the time of admission. Principal Diagnosis Enteritis, self-limited Discharge Exam General: A&Ox3. NAD. Cooperative. HEENT: Atraumatic, normocephalic. Pulm: CTAB A&P. -wheezes, -rales, -rhonchi. Symmetrical chest rise. No increase in work of breathing. No respiratory distress. Cardiac: RRR, -mrg. Radial pulses intact and symmetrical. Abdominal: Nontender, nondistended, soft. BS present. Discharge Data Allergies Allergy/AdvReac Type Severity Reaction Status Date / Time No Known Drug Allergies Allergy Verified 12/22/21 11:18 Consultations 01/13/22 12:15 ED Decision to Admit Stat 01/13/22 13:05 Consult General Surgery Stat Ordered Studies 01/13/22 10:21 CT abd pelvis wo con Stat Hospital Course (1) Abdominal pain: Tony Carroll is an 81-year-old male with a history of germ cell tumor undergoing cisplatin/etoposide who presented with acute onset of abdominal pain, nausea, and vomiting. CT showed evidence of mesenteric edema versus enteritis, no evidence of perforation/ischemia although this was not contrast-enhanced due to CKD. Surgery was consulted and reviewed images, surgical intervention was not recommended and bowel ischemia was not likely based on imaging review, clinical improvement, and normal labs including lactate. Arias symptoms gradually improved, and on day of discharge was tolerating a normal diet with minimal to no pain in the abdomen. Suspected transient enteritis and was discharged to outpatient follow-up. He did not have a leukocytosis, was afeb rile, lactate 1.5 To do as outpatient: 1. Routine follow-up with PCP 2. Follow-up with oncology prior to next cycle of chemo 01/30/2022 Abdominal pain Diffuse abdominal pain, nausea/vomiting that presented acutely on 01/13/22 and was severe in nature This is in the setting of immunosuppression, currently on chemotherapy Has remained afebrile during his visit; Lactate level 1.5, Lipase 75. CT abdomen/pelvis with nonspecific mild bowel thickening in the duodenum and proximal jejunum secondary to diffuse edematous state versus mild enteritis, otherwise nothing acute Surgery consulted due to concern for mesenteric ischemia, unfortunately CT angio AP cannot be completed due to CKD. Recommend advancing diet as pain is improving. WBC remains stable (decreased due to recent chemo); no evidence of sepsis at this time. C. 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 Will need to follow up with oncology prior to next cycle of chemo (scheduled for cycle 3 on 01/30/22) (4) Pancytopenia due to antineoplastic chemotherapy: Follow and give transfusional support as needed Hgb 8.0 - will repeat CBC in the AM and transfuse 2 units for Hgb <8. WBC 4.11, Plt 73K. (5) Anasarca: With peripheral edema, ascites, pleural effusions and pulmonary edema Secondary to severe protein calorie malnutrition in the setting of chemotherapy Holding home Lasix; will monitor daily weights. (6) Diabetes mellitus: Hold home Janumet; would not recommend restarting metformin in the setting of CKD stage III-IV with GFR less than 30 Hold home Sitagliptin and when restarted should be at the 25 mg daily dosed for GFR less than 30 Hold home Victoza Give NovoLog sliding scale; glucose checks ACHS. Hgb A1C 6.0 (7) CAD (coronary atherosclerotic disease): Status post CABG Continue home aspirin, carvedilol Not on statin (8) Presence of single chamber implantable cardioverter-defibrillator (ICD): Placed for history of V. fib and VT Follows with cardiology at [facility] Continue amiodarone (9) Chronic kidney disease, stage III (moderate): With CKD stage III-IV Creatinine level 2.02, improved from baseline. -Avoid nephrotoxins -Renally dose meds when appropriate- note should be discontinued from metformin and lower dose of Sitagliptin as above -Holding Lasix; recommend resuming at 20 mg PO daily following discharge. (10) Atrial flutter: Remote history of such and has never been on anticoagulation due to subarachnoid hemorrhage and minimal recurrence of atrial flutter Follows with cardiology NSR on monitor Continue carvedilol (11) Obstructive sleep apnea: BiPAP qhs - his brought machine from home DVT prophylaxis- SCDs & encourage ambulation; start Lovenox 40 mg subQ daily on 01/15/22. Disposition- Med/surg with tele. Discharge on 01/15 if he is tolerating diet and abd pain improved. DNR/DNI as per discussion with patient and his at the bedside Total Time Total Time Spent Total Time Spent (In Minutes): Time spend day of discharge 40 minutes including direct patient care, documentation, review of labs and images, and coordination of care. Discharge Plan Discharge Items Patient Disposition: Home - Self-Care Reason For Visit: ABDOMINAL PAIN, NAUSEA/VOMITING Discharge Diagnosis: Abdominal Pain Activity: Resume your previous activity Non-emergency contact: Primary Care Provider Call non-emergency contact if: you have any medication questions, your symptoms worsen, your pain is not controlled, your pain is unusual for you and you have a fever Follow-up/Referrals: Josafat Kohler DO [Primary Care Provider] - Diet: Regular Addtl Attending Provider Instructions: He was seen in the hospital for diffuse abdominal pain with nausea and vomiting that presented acutely 01/13/2022 and which improved. A CTA of your abdomen and pelvis showed mild enteritis. Your case was reviewed by surgery due to concern for mesenteric ischemia. On review of labs and blood work it was not felt mesenteric ischemia, a condition where adequate blood is not getting to the intestines, was present and no surgical intervention was recommended. You did not show any evidence of sepsis during admission. You were treated with empiric antibiotics with Zosyn with no additional signs of worsening infection, this was discontinued at discharge. Your food tolerance improved, and at time of discharge you were tolerating meals well without pain and without signs of acute abdominal infection. You are independently ambulatory at home, and felt at/near your normal baseline. Follow-up is being scheduled for you with your primary care provider as above. You should be seen for follow-up within 1 week. You have not been started on new medications at this time. If you develop any new or worsening symptoms including fever, chills, sweats, chest pain, chest pressure, difficulty breathing, uncontrolled nausea/vomiting, rash, wheezing, passing out or nearly passing out, bleeding, black/bloody bowel movements, or other new or concerning symptoms please call your primary care physician, or call 911 for re-evaluation in the emergency department if you are very concerned. Pending Studies at Discharge: No Stand-Alone Forms: My [facility], Smoking Cessation Medications and DC Order Prescriptions: Continued Victoza 2-Ronen 0.6 mg/0.1 mL (18 mg/3 mL) pen injector 1.2 mg SQ QAM Qty: 18 RF: 5 carvedilol 12.5 mg tablet 12.5 mg PO BID Qty: 180 RF: 3 amiodarone 200 mg tablet 200 mg PO BID Qty: 180 RF: 3 (DME) BD AutoShield Duo Pen Needle 30 gauge x 3/16" needle See Rx Instructions .ROUTE .MEDSUPPLY Qty: 100 RF: 1 tamsulosin 0.4 mg capsule 0.4 mg PO HS Qty: 30 RF: 5 ondansetron 4 mg tablet,disintegrating 4 mg PO Q8H PRN (Reason: nausea and vomiting) Qty: 30 RF: 1 Janumet 50-1,000 mg tablet 1 tab PO BID Qty: 180 RF: 1 prochlorperazine maleate 10 mg tablet 10 mg PO Q6H PRN (Reason: Nausea) RF: 0 furosemide [Lasix] 20 mg tablet 20 mg PO QAM RF: 0 gabapentin 100 mg capsule 100 mg PO HS Qty: 90 RF: 1 lutein-zeaxanthin 25-5 mg capsule 1 cap PO HS RF: 0 cyanocobalamin (vitamin B-12) 5,000 mcg Capsule 5,000 mcg PO HS RF: 0 multivitamin tablet 1 tab PO BID RF: 0 krill oil 500 mg capsule 500 mg PO HS RF: 0 aspirin 81 mg Tablet,Delayed Release (Dr/Ec) 81 mg PO QAM RF: 0 Discharge Orders: Discharge Order (Routine); Ordered 01/15/22 Ordered By: Gavin Moy Admission Data Admit Date/Time: 01/13/22 13:17 Attending Provider: Gavin Moy Admit Provider: Maida Hunt Primary Care Provider: Josafat Kohler Other Providers: Maida Hunt ; Doroteo Howard Other Interventions: Discharge Summary Assessment (RN) Last Done: 01/15/22 15:18 Coding Level of Care Code D/C DAY MANAGEMENT >30 MINS Diagnoses Abdominal pain R10.84 Abdominal location: generalized Vomiting R11.2 Nausea presence: with nausea Vomiting type: unspecified Germ cell tumor C80.1 Pancytopenia due to antineoplastic chemotherapy D61.810; T45.1X5A Anasarca R60.1 Diabetes mellitus E11.22; N18.3 Chronic kidney disease stage: stage 3 (moderate) Diabetes mellitus complication detail: with chronic kidney disease Diabetes mellitus complication status: with kidney complications 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
== END 2022-01-15 16:00 | disposition home or self-care (01) | DRG 391 ==
LOC: ED 09:47 → EDINP 13:17 → SUATTDRO 13:17 → 2W 19:36

== ENCOUNTER 2022-04-19 13:09 | Inpatient (IN) ==
[2022-04-19] MEDS ORDERED: ONDANSETRON INJ 2 MG/ML 2 ML VIAL IV STA (14:15)
[2022-04-19] MEDS ORDERED: SODIUM CHLORIDE 0.9% 1000ML 1,000 ML IV SCH (14:15)
--- NOTE | 2022-04-19 14:26 | Emergency Department Note ---
Impression & Plan Weakness, SHARON (acute kidney injury), Hypocalcemia, Status post chemotherapy, Anemia ED Provider Note NAME: BENIGNO HOLBROOK AGE: 81 SEX: M : 1940 ARRIVES VIA: Ambulance INFORMANT: [Patient] ED PROVIDER(S): [Forrest Grey MD] CHIEF COMPLAINT: Weakness HISTORY OF PRESENT ILLNESS: The patient is an 81-year-old male who presents to the ED with several days of increasing weakness and fatigue. He feels unsteady. There has been no chest pain or fever or cough. He feels a bit short of breath because of the weakness. He has not fallen. The weakness is diffuse, not one-sided. The patient has lost 30 pounds since starting chemotherapy. His last chemotherapy was 3 weeks ago. 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 He states that this is making it even harder for him to eat. The patient's was concerned today about how weak he seemed. The ambulance was summoned. REVIEW OF SYSTEMS: See HPI for pertinent positives and negatives. A total of ten systems were reviewed and were otherwise negative. PMHx/PSHx: See Below SOCIAL HISTORY: See Below. PHYSICAL EXAM: GENERAL: Patient is in no acute distress. HEENT: No acute trauma, normocephalic atraumatic, mucous membranes dry, no nasal congestion, no scleral icterus. NECK: No stridor, no adenopathy, no meningismus, trachea is midline. LUNGS: Clear to auscultation bilaterally, no wheeze, no rhonchi, breath sounds equal. HEART: Without murmurs gallops or rubs, regular rate and rhythm. ABDOMEN: Soft, nontender, bowel sounds positive, no peritonitis. EXTREMITIES: No cyanosis or edema, full range of motion of all the joints without pain or difficulty, no signs for acute trauma. NEUROLOGIC: Oriented x 3, no acute motor or sensory deficits, no focal weakness. SKIN: No rash, no jaundice, no diaphoresis. Pale. DIFFERENTIAL DIAGNOSIS: Infection, dehydration, UTI, COVID-19, metabolic abnormality, hypo/hyperglycemia, electrolyte disturbance, anemia, hypoxia, cardiac sources, intracerebral event, toxicologic issues, stroke, TIA, as well as other pathologies. EMERGENCY DEPARTMENT COURSE/PROCEDURES: ECG: Indication was weakness. The ECG shows a normal sinus rhythm with a rate of 61. There is an inverted T wave in lead V2. There is some diffuse T wave flattening. No ST elevation, no PVCs. The QTc is 543. Compared to an ECG from 13 January 2022, the inverted T wave in V2 is new. The QTc has lengthened. Continuous Cardiac Monitoring: An order was placed for continuous cardiac monitoring. The monitor shows a rate of 71 with normal sinus rhythm. MEDICAL DECISION MAKING: There is no leukocytosis. The patient is anemic but this appears baseline lately looking back at previous testing. There is a normal platelet count. Potassium and sodium are both slightly low. Creatinine was elevated consistent with acute kidney injury and dehydration. Calcium was low at 7.8. No concerning elevation to the lactic acid level, this certainly made sepsis less likely. No worrisome liver enzyme elevation. The patient appeared to be in a euthyroid state. Urinalysis did not show infection. COVID, RSV and influenza test were negative. Chest x-ray did not show pneumonia. Brain CT showed no acute bleed or mass-effect. A right-sided mastoid effusion was seen on CT im aging. The patient was given IV saline, 2 L. He received IV Zofran. He was given IV calcium. He received oral Tylenol. The patient presents with increasing weakness status postchemotherapy. He has some acute kidney injury, a low calcium, he is anemic. He appears dehydrated. I do think a hospital stay is warranted. I spoke with the patient and his family, I spoke with case management. The on- call hospitalist was consulted. Past Med/Surg History Medical History Abdominal pain Atrial flutter Presented to the emergency room on August 16, 2020 after syncopal episode; arrhythmia identified on arrival- based on his ICD evaluation, converted with an ICD shock and "seems to have remained in sinus rhythm. 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 Needle biopsy at [facility] dx 11/2021. Surgical History Difficult airway for intubation PT REPORTS WAS TOLD PT WAS DIFFICULT INTUBATION - UNKNOWN FURTHER DETAILS - ? SURGERY WAS TOLD THIS- POSSIBLY BYPASS SURGERY PER -PER PT 30+ YRS AGO? H/O tympanomastoidectomy RIGHT 11/12/20 [facility] History of adenoidectomy History of cardiac cath PRIOR TO HEART SURGERY, [facility] - NO STENT(S) History of cataract surgery R/L History of colonoscopy History of coronary artery bypass graft 3 VESSELS 1998 History of cystoscopy REMOVAL KIDNEY STONE History of laminectomy History of nasal septoplasty History of tonsillectomy and adenoidectomy History of tympanomastoidectomy (~12/2020) LEFT Implantation of internal cardiac defibrillator (05/02/12) Port-A-Cath in place (12/22/21) Insertion of Access Port Right Subclavian with Fluoroscopy(Right) - Ivan Peacock, 12/22/2021 S/P ICD (internal cardiac defibrillator) procedure Placed 2002, generator change 2011 and 2019 Family History Mother Breast cancer Family history of diabetes mellitus Grandmother (Maternal) No problems noted. Grandmother (Paternal) Myocardial infarction Breast cancer Father Myocardial infarction Brother Brain cancer Sister Cancer Denies family history of Ovarian cancer Prostate cancer Colorectal cancer Social History Smoking Status: Former smoker Tobacco Type: Cigarettes packs per day: 2; Years Smoked: 31; Cigarettes Per Day: 2.5; Second Hand Exposure: No; Hx Alcohol Use: No Hx Substance Use: Yes Last Used Substance: Days (ago) Preferred Language: Luxembourgish Communication Ability: Effective Visual Impairment: No Limitations Hearing Ability: Normal Product Builder Required: No Beliefs That Will Affect Care: None marital status: Current Living Situation: Spouse current occupational status: 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 How many Children do You have: 2 Feels Safe at Home: Yes Childhood Exposure to Second-Hand Smoke: No Diet Comment: "go low" Dental Care, Regularly: Yes Physical Activity Frequency: 1-2 Times per Week Seatbelt Use: always Sunscreen Use: No Assistive Devices: Cane and Walker Allergies Allergies Allergy/AdvReac Type Severity Reaction Status Date / Time No Known Drug Allergies Allergy nkda Verified 04/19/22 17:31 Home Meds Home Medications Medication Instructions Recorded Confirmed cyanocobalamin (vitamin B-12) 5,000 mcg PO DAILY 11/13/18 04/19/22 5,000 mcg capsule multivitamin 1 tab PO BID 03/04/19 04/19/22 aspirin 81 mg tablet,delayed 81 mg PO QAM 07/05/20 04/19/22 release lutein 25 mg-zeaxanthin 5 mg 1 cap PO HS 11/05/20 04/19/22 capsule krill oil 500 mg capsule 500 mg PO HS 07/18/21 04/19/22 prochlorperazine maleate 10 mg 10 mg PO Q6H PRN Nausea 12/16/21 04/19/22 tablet furosemide 20 mg tablet (Lasix) 20 mg PO BID 01/18/22 04/19/22 acetaminophen 500 mg tablet 1,000 mg PO Q6H PRN Pain 04/19/22 04/19/22 (Tylenol Extra Strength) Previous Rx's Medication Instructions Recorded carvedilol 12.5 mg tablet 12.5 mg PO BID #180 tabs 08/29/21 gabapentin 100 mg capsule 100 mg PO HS #90 caps 10/19/21 amiodarone 200 mg tablet 200 mg PO BID #180 tabs 11/04/21 pen needle,diabetic dual safty 30 #100 ea 11/07/21 gauge x 3/16" (BD AutoShield Duo Pen Needle) tamsulosin 0.4 mg capsule 0.4 mg PO HS #30 caps 11/08/21 ondansetron 4 mg disintegrating 4 mg PO Q8H PRN nausea and 11/11/21 tablet vomiting #30 tabs sitagliptin 50 mg-metformin 1,000 1 tab PO BID diabetes mellitus 11/17/21 mg tablet (Janumet) #180 tabs Saccharomyces boulardii 250 mg 250 mg PO BID #60 caps 04/03/22 capsule (Florastor) ciprofloxacin HCl 0.3 % eye drops See Rx Instructions ophthalmic 04/14/22 (eye) .COMPLEX #10 mL liraglutide 0.6 mg/0.1 mL (18 mg/3 See Rx Instructions .Route 04/18/22 mL) subcutaneous pen injector .COMPLEX #18 mL (Victoza 2-Ronen) Results & Data (ED) Vital Signs Vital Signs - 24 hr 04/19/22 13:29 04/19/22 13:38 04/19/22 13:32 Temperature 37 C Temperature Source Oral Pulse Rate 71 55 L Pulse Rate from SpO2 Sensor 53 L Respiratory Rate 20 10 L Blood Pressure 125/60 Blood Pressure Mean 81 Pulse Oximetry 99 99 96 Oxygen Delivery Method Room Air Room Air Sepsis Recent Fever Within 48 Hours No Sepsis New/Unexplained Change in Mental Status No Sepsis Action Taken by Nursing No Action Required 04/19/22 13:40 04/19/22 13:50 04/19/22 14:00 Temperature Temperature Source Pulse Rate 54 L 53 L Pulse Rate from SpO2 Sensor 54 L 53 L Respiratory Rate 0 L 8 L Blood Pressure 104/51 L Blood Pressure Mean 68 Pulse Oximetry 98 98 Oxygen Delivery Method Sepsis Recent Fever Within 48 Hours Sepsis New/Unexplained Change in Mental Status Sepsis Action Taken by Nursing 04/19/22 14:00 04/19/22 14:10 04/19/22 14:20 Temperature Temperature Source Pulse Rate 57 L 53 L 54 L Pulse Rate from SpO2 Sensor 56 L 50 L 54 L Respiratory Rate 13 13 12 Blood Pressure Blood Pressure Mean Pulse Oximetry 96 96 94 Oxygen Delivery Method Sepsis Recent Fever Within 48 Hours Sepsis New/Unexplained Change in Mental Status Sepsis Action Taken by Nursing 04/19/22 14:35 04/19/22 14:40 04/19/22 14:50 Temperature Temperature Source Pulse Rate 99 H 55 L 51 L Pulse Rate from SpO2 Sensor 54 L 51 L Respiratory Rate 12 15 Blood Pressure Blood Pressure Mean Pulse Oximetry 100 99 Oxygen Delivery Method Sepsis Recent Fever Within 48 Hours Sepsis New/Unexplained Change in Mental Status Sepsis Action Taken by Nursing 04/19/22 15:00 04/19/22 15:00 04/19/22 15:10 Temperature Temperature Source Pulse Rate 53 L 52 L Pulse Rate from SpO2 Sensor 52 L 54 L Respiratory Rate 10 L 15 Blood Pressure 121/54 L Blood Pressure Mean 76 Pulse Oximetry 99 99 Oxygen Delivery Method Sepsis Recent Fever Within 48 Hours Sepsis New/Unexplained Change in Mental Status Sepsis Action Taken by Nursing 04/19/22 15:20 04/19/22 15:30 04/19/22 15:30 Temperature Temperature Source Pulse Rate 53 L 59 L Pulse Rate from SpO2 Sensor 52 L Respiratory Rate 14 21 Blood Pressure 114/58 L Blood Pressure Mean 76 Pulse Oximetry 99 Oxygen Delivery Method Sepsis Recent Fever Within 48 Hours Sepsis New/Unexplained Change in Mental Status Sepsis Action Taken by Nursing 04/19/22 15:40 04/19/22 15:50 04/19/22 16:00 Temperature Temperature Source Pulse Rate 50 L 57 L Pulse Rate from SpO2 Sensor Respiratory Rate 15 13 Blood Pressure 123/79 Blood Pressure Mean 93 Pulse Oximetry Oxygen Delivery Method Sepsis Recent Fever Within 48 Hours Sepsis New/Unexplained Change in Mental Status Sepsis Action Taken by Nursing 04/19/22 16:00 04/19/22 16:10 04/19/22 16:20 Temperature Temperature Source Pulse Rate 56 L 55 L 53 L Pulse Rate from SpO2 Sensor 55 L 55 L 53 L Respiratory Rate 15 11 L 14 Blood Pressure Blood Pressure Mean Pulse Oximetry 99 99 100 Oxygen Delivery Method Sepsis Recent Fever Within 48 Hours Sepsis New/Unexplained Change in Mental Status Sepsis Action Taken by Nursing 04/19/22 16:30 04/19/22 16:30 04/19/22 16:40 Temperature Temperature Source Pulse Rate 53 L 58 L Pulse Rate from SpO2 Sensor 52 L 57 L Respiratory Rate 22 15 Blood Pressure 113/57 L Blood Pressure Mean 75 Pulse Oximetry 99 100 Oxygen Delivery Method Sepsis Recent Fever Within 48 Hours Sepsis New/Unexplained Change in Mental Status Sepsis Action Taken by Nursing 04/19/22 16:50 Temperature Temperature Source Pulse Rate 57 L Pulse Rate from SpO2 Sensor 57 L Respiratory Rate 14 Blood Pressure Blood Pressure Mean Pulse Oximetry 100 Oxygen Delivery Method Sepsis Recent Fever Within 48 Hours Sepsis New/Unexplained Change in Mental Status Sepsis Action Taken by Intermediate Medications Current Medication List: was personally reviewed by me Laboratory Data Attestation: I reviewed the patient's lab results. Result diagrams: 04/19/22 13:34 04/19/22 13:34 Lab Results 04/19/22 04/19/22 04/19/22 Range/Units 13:34 13:34 13:34 WBC 9.28 (4.8-10.8) K/ul RBC 3.18 L (4.63-6.08) M/uL Hgb 9.9 L (14.0-18.0) g/dl Hct 30.6 L (40.1-51.0) % MCV 96.2 (80.0-100.0) fL MCH 31.1 (25.0-34.0) pg MCHC 32.4 (32.0-36.0) g/dL RDW Std Deviation 66.9 H (36.4-46.3) fL RDW Coeff of David 18.8 H (11.5-14.5) % Plt Count 131 (130-400) K/uL MPV 13.6 H (9.4-12.4) fL Immature Gran % (Auto) 1.6 % Neut % (Auto) 77.2 % Lymph % (Auto) 9.6 % [place] % (Auto) 11.2 % Eos % (Auto) 0.2 % Baso % (Auto) 0.2 % Neut # (Auto) 7.16 H (1.4-6.5) K/uL Lymph # (Auto) 0.89 L (1.2-3.4) K/uL [place] # (Auto) 1.04 H (0.24-0.82) K/uL Eos # (Auto) 0.02 (0-0.50) K/uL Baso # (Auto) 0.02 (0-0.2) K/uL Immature Gran # (Auto) 0.15 H (0.00-0.02) K/uL Sodium 135 L (136-145) mmol/L Potassium 3.4 L (3.5-5.1) mmol/L Chloride 102 (98-107) mmol/L Carbon Dioxide 23 (21-32) mmol/L Anion Gap 10 (3-11) BUN 28 H (6-23) mg/dl Creatinine 2.68 H (0.6-1.4) mg/dl Est Cr Clr Drug Dosing 24.1 ml/min Est GFR ( Amer) 24.9 ml/min Est GFR (Non-Af Amer) 21.5 ml/min BUN/Creatinine Ratio 10.4 (10-20) Glucose 123 H (70-99(Fasting)) mg/dl Lactate (0.4-2.0) mmol/L Calcium 7.8 L (8.5-10.1) mg/dl Phosphorus (2.5-4.9) mg/dl Magnesium 1.8 (1.7-2.4) mg/dl Total Bilirubin 0.7 (0.2-1.0) mg/dl AST 37 (13-39) U/L ALT 15 (7-52) U/L Alkaline Phosphatase 83 (34-104) U/L Troponin I High Sens 15.1 (0-20) pg/ml Total Protein 6.0 (6.0-8.3) gm/dl Albumin 2.6 L (3.4-5.0) gm/dl Globulin 3.4 (2.5-4.0) gm/dl Albumin/Globulin Ratio 0.8 L (0.9-2) TSH 1.930 (0.300-4.500) uIu/ml SARS-CoV-2 (PCR) (Negative) Influenza Type A (PCR) (Neg) Influenza Type B (PCR) (Neg) RSV (RT-PCR) (Neg) 04/19/22 04/19/22 04/19/22 Range/Units 15:00 15:02 16:15 WBC (4.8-10.8) K/ul RBC (4.63-6.08) M/uL Hgb (14.0-18.0) g/dl Hct (40.1-51.0) % MCV (80.0-100.0) fL MCH (25.0-34.0) pg MCHC (32.0-36.0) g/dL RDW Std Deviation (36.4-46.3) fL RDW Coeff of David (11.5-14.5) % Plt Count (130-400) K/uL MPV (9.4-12.4) fL Immature Gran % (Auto) % Neut % (Auto) % Lymph % (Auto) % [place] % (Auto) % Eos % (Auto) % Baso % (Auto) % Neut # (Auto) (1.4-6.5) K/uL Lymph # (Auto) (1.2-3.4) K/uL [place] # (Auto) (0.24-0.82) K/uL Eos # (Auto) (0-0.50) K/uL Baso # (Auto) (0-0.2) K/uL Immature Gran # (Auto) (0.00-0.02) K/uL Sodium (136-145) mmol/L Potassium (3.5-5.1) mmol/L Chloride (98-107) mmol/L Carbon Dioxide (21-32) mmol/L Anion Gap (3-11) BUN (6-23) mg/dl Creatinine (0.6-1.4) mg/dl Est Cr Clr Drug Dosing ml/min Est GFR ( Amer) ml/min Est GFR (Non-Af Amer) ml/min BUN/Creatinine Ratio (10-20) Glucose (70-99(Fasting)) mg/dl Lactate 1.0 (0.4-2.0) mmol/L Calcium (8.5-10.1) mg/dl Phosphorus 3.6 (2.5-4.9) mg/dl Magnesium (1.7-2.4) mg/dl Total Bilirubin (0.2-1.0) mg/dl AST (13-39) U/L ALT (7-52) U/L Alkaline Phosphatase (34-104) U/L Troponin I High Sens (0-20) pg/ml Total Protein (6.0-8.3) gm/dl Albumin (3.4-5.0) gm/dl Globulin (2.5-4.0) gm/dl Albumin/Globulin Ratio (0.9-2) TSH (0.300-4.500) uIu/ml SARS-CoV-2 (PCR) NEGATIVE (Negative) Influenza Type A (PCR) Negative (Neg) Influenza Type B (PCR) Negative (Neg) RSV (RT-PCR) Negative (Neg) Administered Medications Discontinued Medications Acetaminophen (Acetaminophen 325 Mg Tab) Confirm Administered Dose 650 mg .ROUTE .STK-MED ONE Stop: 04/19/22 17:45 Last Admin: 04/19/22 17:47 Dose: 650 mg Documented By: RDD Acetaminophen (Acetaminophen 325 Mg Tab) 650 mg PO NOW STA Stop: 04/19/22 17:47 Last Admin: 04/19/22 17:48 Dose: Not Given Documented By: RDD Sodium Chloride (Nss 1000ml) 1,000 mls @ 999 mls/hr IV .Q1H1M JANEEN Stop: 04/19/22 15:15 Last Infusion: 04/19/22 16:07 Dose: 0 mls/hr Documented By: Admin: 04/19/22 15:06 Dose: 999 mls/hr Documented By: ALMA Calcium Gluconate () 1,000 mg in 60 mls @ 240 mls/hr IV NOW STA Stop: 04/19/22 15:22 Last Infusion: 04/19/22 16:06 Dose: 0 mls/hr Documented By: Admin: 04/19/22 15:51 Dose: 240 mls/hr Documented By: ALMA Sodium Chloride (Nss 1000ml) 1,000 mls @ 999 mls/hr IV .Q1H1M ONE Stop: 04/19/22 17:04 Last Infusion: 04/19/22 18:19 Dose: 0 mls/hr Documented By: Admin: 04/19/22 17:18 Dose: 999 mls/hr Documented By: ALMA Ondansetron HCl (Ondansetron Inj 2 Mg/Ml 2 Ml Vial) 4 mg IV NOW STA Stop: 04/19/22 14:16 Last Admin: 04/19/22 15:06 Dose: 4 mg Documented By: ALMA Imaging Data Radiologist's Impression: Chest X-Ray 04/19/22 14:15 XR chest 1V portable HISTORY: weakness COMPARISON: Chest 01/13/2022. FINDINGS: No pneumothorax. No pleural effusions. The heart is normal in size. There are poststernotomy changes and left-sided pacemaker/diffuse bladder. Right subclavian Port-A-Cath terminates at the proximal SVC. There are old, healed left-sided rib fractures. Slight focal pleural calcifications are again noted. No new focal lung consolidations to suggest pneumonia. No evidence for pulmonary edema. IMPRESSION: No acute process within the chest. Additional findings as described above. ACT 112: Negative or not required by law. Electronically signed by: Jhoan Alvarez M.D. 04/19/2022 4:[address] 04/19/22 14:15 CT head/brain wo con CLINICAL HISTORY: 81 years-old Male with weakness. Acute weakness TECHNIQUE: Multiple axial CT images of the head were obtained without contrast. A dose lowering technique was utilized adhering to the principles of ALARA. CT DOSE: 537.48 mGy.cm COMPARISON: 10/25/2019 exam. FINDINGS: No acute intracranial hemorrhage, midline shift, intra-axial mass, hydrocephalus, territorial ischemia or abnormal extra-axial collection. 1.1 severe hyperdense focus is noted within the region of the foramen of Monro on image 15 suggestive of probable choroid plexus. Cerebral vascular calcifications. Age-related involutional changes. Mild white matter hypodensiti es suggest chronic microvascular ischemic disease. Calcifications of the falx cerebri. The calvarium is intact. Large right mastoid effusion. Left mastoid air cells are clear. The paranasal sinuses are also clear. Unremarkable soft tissues. Prior bilateral lens repair. IMPRESSION: 1. No acute intracranial abnormality. 2. Large right mastoid effusion. ACT 112: Negative or not required by law. The above report was generated using voice recognition software. It may contain grammatical, syntax or spelling errors. Electronically signed by: Marquis Cullen M.D. 04/19/2022 2:42 PM Discharge Plan Visit Data Chief Complaint: Weakness Stated Complaint: WEAKNESS, PT WANTS EVAL. ED Provider: Forrest Grey Discharge Problem: Weakness, SHARON (acute kidney injury), Hypocalcemia, Status post chemotherapy, Anemia Patient Disposition: Admitted As Inpatient Condition: Fair
[2022-04-19 14:31] LABS: Hematocrit (blood only) 30.6 % (40.1-51.0); Hemoglobin 9.9 g/dl (14.0-18.0); Mean Corpuscular Hemoglobin 31.1 pg (25.0-34.0); Mean Corpuscular Hgb Conc 32.4 g/dL (32.0-36.0); Mean Corpuscular Volume 96.2 fL (80.0-100.0); RDW Coefficient of Variation 18.8 % (11.5-14.5); RDW Standard Deviation 66.9 fL (36.4-46.3); Red Blood Count 3.18 M/uL (4.63-6.08); White Blood Count 9.28 K/ul (4.8-10.8)
[2022-04-19 14:34] LABS: Basophils # (auto) 0.02 K/uL (0-0.2); Basophils % (auto) 0.2 %; Eosinophils # (auto) 0.02 K/uL (0-0.50); Eosinophils % (auto) 0.2 %; Immature Granulocytes # (auto) 0.15 K/uL (0.00-0.02); Immature Granulocytes % (auto) 1.6 %; Lymphocytes # (auto) 0.89 K/uL (1.2-3.4); Lymphocytes % (auto) 9.6 %; Mean Platelet Volume 13.6 fL (9.4-12.4); Monocytes # (auto) 1.04 K/uL (0.24-0.82); Monocytes % (auto) 11.2 %; Neutrophils # (auto) 7.16 K/uL (1.4-6.5); Neutrophils % (auto) 77.2 %; Platelet Count 131 K/uL (130-400)
--- NOTE | 2022-04-19 14:43 | CT Scan Report ---
CT head/brain wo con CLINICAL HISTORY: 81 years-old Male with weakness. Acute weakness TECHNIQUE: Multiple axial CT images of the head were obtained without contrast. A dose lowering tech nique was utilized adhering to the principles of ALARA. CT DOSE: 537.48 mGy.cm COMPARISON: 10/25/2019 exam. FINDINGS: No acute intracranial hemorrhage, midline shift, intra-axial mass, hydrocephalus, territorial ischemi a or abnormal extra-axial collection. 1.1 severe hyperdense focus is noted within the region of the f oramen of Monro on image 15 suggestive of probable choroid plexus. Cerebral vascular calcifications. Age-related involutional changes. Mild white matter hypodensities suggest chronic microvascular ische marcia disease. Calcifications of the falx cerebri. The calvarium is intact. Large right mastoid effusion. Left mastoid air cells are clear. The paranas al sinuses are also clear. Unremarkable soft tissues. Prior bilateral lens repair. IMPRESSION: 1. No acute intracranial abnormality. 2. Large right mastoid effusion. ACT 112: Negative or not required by law. The above report was generated using voice recognition software. It may contain grammatical, syntax o r spelling errors. Electronically signed by: Marquis Cullen M.D. 04/19/2022 2:42 PM
[2022-04-19 14:48] LABS: Albumin Globulin Ratio 0.8 (0.9-2); Albumin Level 2.6 gm/dl (3.4-5.0); BUN Creatinine Ratio 10.4 (10-20); Bilirubin,Total 0.7 mg/dl (0.2-1.0); Calcium 7.8 mg/dl (8.5-10.1); Creatinine Clr Calc Pharmacy 24.1 ml/min; Est GFR (African American) 24.9 ml/min; Est GFR (Non-African American) 21.5 ml/min; Globulin 3.4 gm/dl (2.5-4.0); Magnesium 1.8 mg/dl (1.7-2.4); Potassium 3.4 mmol/L (3.5-5.1)
[2022-04-19 14:49] LABS: Troponin I High Sensitivity 15.1 pg/ml (0-20)
[2022-04-19] MEDS ORDERED: CALCIUM GLUCONATE 1,000 MG/60 ML BAG IV STA (15:08)
--- NOTE | 2022-04-19 16:02 | XRay Report ---
XR chest 1V portable HISTORY: weakness COMPARISON: Chest 01/13/2022. FINDINGS: No pneumothorax. No pleural effusions. The heart is normal in size. There are poststernotom y changes and left-sided pacemaker/diffuse bladder. Right subclavian Port-A-Cath terminates at the pr oximal SVC. There are old, healed left-sided rib fractures. Slight focal pleural calcifications are a gain noted. No new focal lung consolidations to suggest pneumonia. No evidence for pulmonary edema. IMPRESSION: No acute process within the chest. Additional findings as described above. ACT 112: Negative or not required by law. Electronically signed by: Jhoan Alvarez M.D. 04/19/2022 4:00 PM
[2022-04-19] MEDS ORDERED: SODIUM CHLORIDE 0.9% 1000ML 1,000 ML IV ONE (16:04)
--- NOTE | 2022-04-19 16:22 | History & Physical Report ---
Date of Service April 19, 2022 Assessment & Plan (1) Weakness: Plan: Tony Carroll is an 81-year-old male with a past medical history of CKD 3, CAD with pacemaker/ICD, atrial flutter, chronic mastoiditis, germ cell cancer with mets, history of subarachnoid hemorrhage, pancytopenia 2/2 chemo, QT P, DM who presents with several days of worsening weakness and fatigue and unsteadiness on his feet. He has not had chest pain or chest pressure. Has been undergoing chemotherapy with last treatment 3 weeks ago, and has decreased p.o. intake in the setting of recent diagnosis of TMJ. He presents for generalized weakness. Weakness suspect 2/2 severe volume depletion, poor p.o. intake in the setting of recent chemotherapy Completed fourth cycle of chemotherapy 3 weeks ago as noted, very poor p.o. intake since Denies difficulty swallowing/mechanical difficulty eating, but just has generally poor appetite - No leukocytosis - Afebrile - Hgb 9.9 - Ca low, +cacarb ordered - SHARON on admission, received 2 L fluid. LR 60cc/hr x500, with PO cautious IVF w/ EF 40% PT/OT, follow clinically Denies urinary symptoms including polyuria/dysuria. Patient would likely benefit from trial of appetite stimulant such as Remeron, however this is precluded by QT at this time. Will optimize electrolytes, hold Zofran and continue to follow and consider if normalizes Sharon on CKD - Admit Cr 2.68 - Cr baseline 1.77-2.16 - Acutely elevated to 2.68 - Likely prerenal with poor intake + diarrhea - S/p 2L NSS in ER - LR overnight x500 cc, cautious fluids w EF 40% - Repeat BMP in AM CAD hx triple CABG, no hx stents -Reports he follows with Oralia Doyle as outpatient -Single-chamber ICD functioning normally, 1 episode of V. tach with appropriate shock from ICD Reports he has been doing well and has been stable on amiodarone Unable to tolerate higher doses than 12.5 mg of carvedilol, continued at this time High-sensitivity troponin normal on admission with no cardiac symptoms. No evidence of ACS or arrhythmia at this time. If cardiac symptoms develop, transfer to telemetry - Echo 11/2020 with EF 40%, cautious IVF EKG: NSR with sinus arrhythmia. QT prolonged at 540. Avoid QT prolonging meds/Zofran Hypokalemia - K 3.4 - +20meq x3 ordered for goal of 4.0 - Mg 1.8, +Magox PO for goal Mg 2.0 -Suspect poor intake and additional losses from diarrhea. Diarrhea Chronic, improved slightly after course of treatment for C. difficile and then worsened and returned to liquid up to 5 bowel movements per day Repeat stool study pending, if positive would treat as recurrence If C. difficile negative, treat symptomatically with Imodium and likely 2/2 chemotherapy Zofran avoided due to QT greater than 530, optimizing magnesium as noted Chronic R Mastoiditis -Chronic, continue Cipro drops 7-day course as started on outpatient treatment - Associated w some jaw pain DM2 - Hold [employer] antiglycemics Goal BSG 1001 40 Given DM2 but very poor p.o. intake and concern for hypoglycemia, dose reduce basal/bolus, pharmacy consulted for additional assistance with management Testicular cancer Mixed germ cell testicular cancer diagnosed 11/14/2021 CT at diagnosis with aortocaval adenopathy Last seen by heme-onc 04/06/2022. At that time planning for 3-month follow-up with 3-month interval CT, per pt has had good response to chemo - 30lbs since chemo started Completed 4 cycles of cisplatin/etoposide on 02/18/2022 Diagnosed with C. difficile colitis 03/21, completed Vanco course on 04/05. Diarrhea eval as ntoed. DVT prophylaxis: Heparin in the setting of SHARON CODE STATUS: DNR/DNI Diet: DM, boost (2) Chronic kidney disease, stage 4 (severe): (3) History of cancer chemotherapy: (4) Prolonged QT interval: (5) Atrial flutter: (6) Non-sustained ventricular tachycardia: (7) Presence of single chamber implantable cardioverter-defibrillator (ICD): (8) CAD (coronary atherosclerotic disease): (9) Diabetes mellitus: History of Present Illness Primary Care Provider: DO Tony Vaz Glen is an 81-year-old male with a past medical history of CKD 3, CAD with pacemaker/ICD, atrial flutter, chronic mastoiditis, germ cell cancer with mets, history of subarachnoid hemorrhage, pancytopenia 2/2 chemo, QT P, DM who presents with several days of worsening weakness and fatigue and unsteadiness on his feet. He has not had chest pain or chest pressure. Has been undergoing chemotherapy with last treatment 3 weeks ago, and has decreased p.o. intake in the setting of recent diagnosis of TMJ. He presents for generalized weakness. Seen at bedside with family Finished 4th round of chemo 3 weeks ago for testicular cancer. 'Been going downhill since.' Weaker, not drinking/eating much, increased fatigue. No fevers/chills/sweats. Some cranberry juice today and yesterday, but minimal appetite. Talked to Dr. Kohler and was recommended to come in for evaluation. Pt denies trouble swallowing, just reports he has no appetite once he sees food. Has tried milkshakes, ensure but just has very little desire to eat. No vomiting. +Diarrhea, +nausea daily. Diarrhea for several weeks, even prior to chemo. Was treated for C diff and improved slightly then leveled off and stopped improving. Remains near completely liquid. BMs 1-3 times per day/ Medical History: Reviewed Medications: Reviewed Surgical History: Reviewed Allergies: Reviewed Social History: No tobacco in 40 years. No alcohol use. Code Status: Surrogate HELLEN Bonilla @ [phone]. DNR/DNI Allergies Allergy/AdvReac Type Severity Reaction Status Date / Time No Known Drug Allergies Allergy Verified 04/13/22 14:24 Home Medications Medication Instructions Recorded Confirmed Type cyanocobalamin (vitamin B-12) 5,000 mcg PO HS 11/13/18 04/13/22 History 5,000 mcg capsule multivitamin 1 tab PO BID 03/04/19 04/13/22 History aspirin 81 mg tablet,delayed 81 mg PO QAM 07/05/20 04/13/22 History release lutein 25 mg-zeaxanthin 5 mg 1 cap PO HS 11/05/20 04/13/22 History capsule krill oil 500 mg capsule 500 mg PO HS 07/18/21 04/13/22 History carvedilol 12.5 mg tablet 12.5 mg PO BID #180 tabs 08/29/21 04/13/22 Rx gabapentin 100 mg capsule 100 mg PO HS #90 caps 10/19/21 04/13/22 Rx amiodarone 200 mg tablet 200 mg PO BID #180 tabs 11/04/21 04/13/22 Rx pen needle,diabetic dual safty 30 #100 ea 11/07/21 04/13/22 Rx gauge x 3/16" (BD AutoShield Duo Pen Needle) tamsulosin 0.4 mg capsule 0.4 mg PO HS #30 caps 11/08/21 04/13/22 Rx ondansetron 4 mg disintegrating 4 mg PO Q8H PRN nausea and 11/11/21 04/13/22 Rx tablet vomiting #30 tabs sitagliptin 50 mg-metformin 1,000 1 tab PO BID diabetes mellitus 11/17/21 04/13/22 Rx mg tablet (Janumet) #180 tabs prochlorperazine maleate 10 mg 10 mg PO Q6H PRN Nausea 12/16/21 04/13/22 History tablet furosemide 20 mg tablet (Lasix) 20 mg PO BID 01/18/22 04/13/22 History Saccharomyces boulardii 250 mg 250 mg PO BID #60 caps 04/03/22 04/13/22 Rx capsule (Florastor) ciprofloxacin HCl 0.3 % eye drops See Rx Instructions ophthalmic 04/14/22 Rx (eye) .COMPLEX #10 mL liraglutide 0.6 mg/0.1 mL (18 mg/3 See Rx Instructions .Route 04/18/22 Rx mL) subcutaneous pen injector .COMPLEX #18 mL (Victoza 2-Ronen) Past Med/Surg History Medical History Abdominal pain Atrial flutter Presented to the emergency room on August 16, 2020 after syncopal episode; arrhythmia identified on arrival- based on his ICD evaluation, converted with an ICD shock and "seems to have remained in sinus rhythm. His current i nterrogation demonstrates no further atrial flutter since that shock." No sycnope since that time (Per cardio note 07/18/21) Benign prostatic hyperplasia CAD (coronary artery disease) H/O [place] 1988, S/P CABG 3 vessel 1998 Chronic kidney disease, stage 4 (severe) Chronic kidney disease, stage III (moderate) Dehydration Depression HX Diabetes mellitus, type 2 Germ cell cancer Reason for port placement - on chemo H/O acute myocardial infarction 1988 History of subarachnoid hemorrhage History of ventricular fibrillation s/p ICD [place] (hard of hearing) Hyperlipidemia ICD (implantable cardioverter-defibrillator) in place INITIALLY IMPLANTED 2002 ; GENERATOR CHANGE 2011 AND DECEMBER 02, 2019- [employer] Ischemic cardiomyopathy (Unknown) S/p ICD implantation EF 40% per most recent echo 08/2020 Retroperitoneal lymphadenopathy SNHL (sensorineural hearing loss) Testicular cancer with mets to the lymph nodes. Needle biopsy at [facility] dx 11/2021. Surgical History Difficult airway for intubation PT REPORTS WAS TOLD PT WAS DIFFICULT INTUBATION - UNKNOWN FURTHER DETAILS - ? SURGERY WAS TOLD THIS- POSSIBLY BYPASS SURGERY PER -PER PT 30+ YRS AGO? H/O tympanomastoidectomy RIGHT 11/12/20 [facility] History of adenoidectomy History of cardiac cath PRIOR TO HEART SURGERY, [facility] - NO STENT(S) History of cataract surgery R/L History of colonoscopy History of coronary artery bypass graft 3 VESSE[facility] 1998 History of cystoscopy REMOVAL KIDNEY STONE History of laminectomy History of nasal septoplasty History of tonsillectomy and adenoidectomy History of tympanomastoidectomy (~12/2020) LEFT Implantation of internal cardiac defibrillator (05/02/12) Port-A-Cath in place (12/22/21) Insertion of Access Port Right Subclavian with Fluoroscopy(Right) - Ivan Peacock, 12/22/2021 S/P ICD (internal cardiac defibrillator) procedure Placed 2002, generator change 2011 and 2019 Family History Mother Breast cancer Family history of diabetes mellitus Grandmother (Maternal) No problems noted. Grandmother (Paternal) Myocardial infarction Breast cancer Father Myocardial infarction Brother Brain cancer Sister Cancer Denies family history of Ovarian cancer Prostate cancer Colorectal cancer Social History Smoking Status: Former smoker Tobacco Type: Cigarettes packs per day: 2; Years Smoked: 31; Cigarettes Per Day: 2.5; Second Hand Exposure: No; Hx Alcohol Use: No Hx Substance Use: Yes Last Used Substance: Days (ago) Preferred Language: [place] Communication Ability: Effective Visual Impairment: No Limitations Hearing Ability: Normal Cardroom Supervisor Required: No Beliefs That Will Affect Care: None marital status: Current Living Situation: Spouse current occupational status: 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 Appears fatigued, chronically ill HEENT: Atraumatic, normocephalic. Pupils equal and reactive to light. Vision and hearing intact. Pulm: Diminished but CTAB A&P. -wheezes, -rales, -rhonchi. Symmetrical chest rise. No increase in work of breathing. No respiratory distress. Cardiac: RRR, -mrg. Radial pulses intact and symmetrical. Abdominal: Nontender, nondistended, soft. BS present. Extremities: Warm, dry. Moves all extremities equally Results & Data Results & Data ([facility]) Vital Signs (Past 12 Hours) Vital Signs Temp Pulse Resp BP Pulse Ox O2 Del Method 04/19/22 16:00 56 L 15 99 04/19/22 16:00 123/79 04/19/22 15:50 57 L 13 04/19/22 15:40 50 L 15 04/19/22 15:30 59 L 21 04/19/22 15:30 114/58 L 04/19/22 15:20 53 L 14 99 04/19/22 15:10 52 L 15 99 04/19/22 15:00 53 L 10 L 99 04/19/22 15:00 121/54 L 04/19/22 14:50 51 L 15 99 04/19/22 14:40 55 L 12 100 04/19/22 14:35 99 H 04/19/22 14:20 54 L 12 94 04/19/22 14:10 53 L 13 96 04/19/22 14:00 57 L 13 96 04/19/22 14:00 104/51 L 04/19/22 13:50 53 L 8 L 98 04/19/22 13:40 54 L 0 L 98 04/19/22 13:32 55 L 10 L 96 04/19/22 13:38 99 Room Air 04/19/22 13:29 37 C 71 20 125/60 99 Room Air PG Care Time/CCT Total # of Minutes Spent Total Time Spent with Patient: Total time spent is greater than 50% in coordination of care (as documented) at patient's floor/unit and/or counseling patient: Coding Level of Care Code 89203 Initial Inpt Care Lvl 2 Diagnoses Weakness R53.1 Chronic kidney disease, stage 4 (severe) N18.4 History of cancer chemotherapy Z92.21 Prolonged QT interval R94.31 Atrial flutter I48.3 Atrial flutter type: typical Non-sustained ventricular tachycardia I47.2 Presence of single chamber implantable cardioverter-defibrillator (ICD) Z95.810 CAD (coronary atherosclerotic disease) I25.10 Diabetes mellitus E11.22; N18.3 Diabetes mellitus type: type 2 Diabetes mellitus senior care insulin use: without senior care use Diabetes mellitus complication status: with kidney complications Diabetes mellitus complication detail: with chronic kidney disease Chronic kidney disease stage: stage 3 (moderate) (1) Atrial flutter Atrial flutter type: typical Qualified Code(s): I48.3 - Typical atrial flutter (2) Diabetes mellitus Diabetes mellitus type: type 2 Diabetes mellitus rn long term care insulin use: without rn long term care use Diabetes mellitus complication status: with kidney complications Diabetes mellitus complication detail: with chronic kidney disease Chronic kidney disease stage: stage 3 (moderate) Qualified Code(s): E11.22 - Type 2 diabetes mellitus with diabetic chronic kidney disease; N18.3 - Chronic kidney disease, stage 3 (moderate)
--- NOTE | 2022-04-19 17:36 | Electrocardiogram Report ---
Test Reason : Blood Pressure : / mmHG Vent. Rate : 061 BPM Atrial Rate : 061 BPM P-R Int : 158 ms QRS Dur : 116 ms QT Int : 540 ms P-R-T Axes : 119 063 129 degrees QTc Int : 543 ms Normal sinus rhythm with sinus arrhythmia Nonspecific ST and T wave abnormality Prolonged QT Abnormal ECG When compared with ECG of 13-JAN-2022 10:33, Inverted T waves have replaced nonspecific T wave abnormality in Anterior leads QT has lengthened Confirmed by Lalit Lisa ([id number]) on 04/19/2022 5:36:16 PM Referred By: REFERRED SELF Confirmed By:Cody Lisa
[2022-04-19 17:44] LABS: Influenza A virus by PCR Negative (Neg); Influenza B virus by PCR Negative (Neg); RSV by PCR Negative (Neg); SARS CoV2 RNA(COVID-19) InHosp NEGATIVE (Negative)
[2022-04-19] MEDS ORDERED: ACETAMINOPHEN 325 MG TAB ONE (17:44)
[2022-04-19] MEDS ORDERED: ACETAMINOPHEN 325 MG TAB PO STA (17:46)
[2022-04-19] MEDS ORDERED: PHARMACY GLYCEMIC MGMT CONSULT PRN (18:57)
[2022-04-19] MEDS ORDERED: POLYETHYLENE (MIRALAX) 17 GM PACK PO PRN (18:57)
[2022-04-19 19:04] LABS: Appearance Urine Clear (Clear); Bilirubin Urine Negative (Negative); Blood Urine Negative (Negative); Color Urine Yellow; Glucose Urine UA Negative (Negative); Ketones Urine Negative (Negative); Leukocyte Esterase Urine Negative (Negative); Nitrite Urine Negative (Negative); Protein Urine Negative (Negative); Specific Gravity Urine 1.012 (1.000-1.030); Urobilinogen Urine Negative (Negative)
--- NOTE | 2022-04-19 20:00 | Pharmacy Report ---
Pharmacy Glycemic Short Note 2 - Date of Service April 19, 2022 - Glycemic Short BSG Results (Last 24 hours): 04/19/22 13:34 Glucose 123 H OUTPATIENT ANTIDIABETIC REGIMEN: * Metformin * Sitagliptin * Liraglutide ASSESSMENT: * 81 yo M with T2DM admitted for SHARON, N/V, and poor po intake * No Lantus unless BSG > 140 mg/dL as random BSG OK and po intake has been poor * Initiate weight-based moderate stress Novolog PLAN FOR INPATIENT GLYCEMIC CONTROL: * Hold outpatient oral diabetes medications * Basal insulin * Lantus 0-10 units SQ x1 * Bolus insulin * NovoLog per scale ACHS or Q6hrs while NPO * Goal Range: Low 110 mg/dL - High 140 mg/dL * Correction Factor: 30 mg/dL/unit * Nutritional / Prandial insulin per carb ratio of 1 unit per 10 grams CHO consumed
[2022-04-19] MEDS ORDERED: SODIUM CHLORIDE 0.9% 1000ML 500 ML IV ONE (21:36)
[2022-04-19] MEDS: GABAPENTIN 100 MG CAP PO SCH (21:56)
[2022-04-19] MEDS: POTASSIUM CHLORIDE CRTAB 20 MEQ TABCR PO SCH (21:57)
[2022-04-19] MEDS: MAGNESIUM OXIDE 400 MG TAB PO SCH (21:57)
[2022-04-19] MEDS: CALCIUM CARBONATE 1,250 MG/5 ML UDC PO SCH (21:58)
[2022-04-19] MEDS: carvediloL 12.5 MG TAB PO SCH (21:59)
[2022-04-19] MEDS: HEPARIN SOD 5,000 UNIT/0.5 ML VIAL SQ SCH (21:59)
[2022-04-19] MEDS: TAMSULOSIN HCL 0.4 MG CAP PO SCH (22:04)
[2022-04-19] MEDS: LANTUS PER UNIT CHARGE SQ SCH (22:25)
[2022-04-19] MEDS: INSULIN ASPART PER UNIT SC SCH (22:25)
[2022-04-19] MEDS: HEPARIN 100 UNIT/ML 5ML FLUSH FLUSH PRN (23:51)
[2022-04-19] MEDS: ACETAMINOPHEN 325 MG TAB PO PRN (23:54)
[2022-04-20] MEDS: CIPROFLOXACIN HCL 0.3% OP SOLN 2.5 ML BTL OT SCH ×3 (00:23→20:35)
[2022-04-20] MEDS ORDERED: traMADol HCL 50 MG TABLET PO STA (01:23)
[2022-04-20 07:54] LABS: Adenovirus F 40/41 PCR Not Detected (NotDetected); Astrovirus PCR Not Detected (NotDetected); Campylobacter PCR Not Detected (NotDetected); Cryptosporidium PCR Not Detected (NotDetected); Cyclospora cayetanensis PCR Not Detected (NotDetected); Entamoeba histolytica PCR Not Detected (NotDetected); Enteroaggregative E.coli(EAEC) Not Detected (NotDetected); Enteropathogenic E.coli (EPEC) Not Detected (NotDetected); Enterotoxigenic E.coli (ETEC) Not Detected (NotDetected); Giardia lamblia PCR Not Detected (NotDetected); Norovirus GI/GII PCR Not Detected (NotDetected); Plesiomonas shigelloides PCR Not Detected (NotDetected); Rotavirus A PCR Not Detected (NotDetected); Salmonella PCR Not Detected (NotDetected); Sapovirus PCR Not Detected (NotDetected); Shiga-like Toxin E.coli (STEC) Not Detected (NotDetected); Shigella/Enteroinvasive E.coli Not Detected (NotDetected); Vibrio cholerae PCR Not Detected (NotDetected); Vibrio species PCR Not Detected (NotDetected); Yersinia enterocolitica PCR Not Detected (NotDetected)
[2022-04-20 08:19] LABS: Basophils # (auto) 0.02 K/uL (0-0.2); Basophils % (auto) 0.2 %; Eosinophils # (auto) 0.02 K/uL (0-0.50); Eosinophils % (auto) 0.2 %; Hematocrit (blood only) 28.9 % (40.1-51.0); Hemoglobin 9.5 g/dl (14.0-18.0); Immature Granulocytes # (auto) 0.12 K/uL (0.00-0.02); Immature Granulocytes % (auto) 1.4 %; Lymphocytes # (auto) 1.02 K/uL (1.2-3.4); Mean Corpuscular Hemoglobin 30.7 pg (25.0-34.0); Mean Corpuscular Hgb Conc 32.9 g/dL (32.0-36.0); Mean Corpuscular Volume 93.5 fL (80.0-100.0); Mean Platelet Volume 12.9 fL (9.4-12.4); Monocytes # (auto) 1.03 K/uL (0.24-0.82); Monocytes % (auto) 12.1 %; Neutrophils % (auto) 74.1 %; Platelet Count 121 K/uL (130-400); RDW Standard Deviation 65.4 fL (36.4-46.3); Red Blood Count 3.09 M/uL (4.63-6.08); White Blood Count 8.51 K/ul (4.8-10.8)
[2022-04-20] MEDS: POTASSIUM CHLORIDE CRTAB 20 MEQ TABCR PO SCH ×2 (08:21→13:29)
[2022-04-20] MEDS: carvediloL 12.5 MG TAB PO SCH ×2 (08:21→17:33)
[2022-04-20] MEDS: ASPIRIN 81 MG ECTAB PO SCH (08:21)
[2022-04-20] MEDS: MAGNESIUM OXIDE 400 MG TAB PO SCH (08:21)
[2022-04-20] MEDS: CALCIUM CARBONATE 1,250 MG/5 ML UDC PO SCH ×2 (08:21→20:33)
[2022-04-20] MEDS: HEPARIN SOD 5,000 UNIT/0.5 ML VIAL SQ SCH ×2 (08:22→20:34)
[2022-04-20] MEDS: ACETAMINOPHEN 325 MG TAB PO PRN ×2 (08:28→22:14)
[2022-04-20] MEDS: INSULIN ASPART PER UNIT SC SCH ×4 (08:38→20:47)
[2022-04-20 09:09] LABS: BUN Creatinine Ratio 12.2 (10-20); Calcium 7.7 mg/dl (8.5-10.1); Creatinine Clr Calc Pharmacy 29.1 ml/min; Est GFR (African American) 31.3 ml/min; Magnesium 1.7 mg/dl (1.7-2.4); Phosphorus 3.5 mg/dl (2.5-4.9); Potassium 3.5 mmol/L (3.5-5.1)
[2022-04-20 09:23] LABS: Cdiff Antigen Positive
[2022-04-20 09:24] LABS: Cdiff Toxin A+B Negative Cdiff Toxin (Negative)
[2022-04-20 10:11] LABS: Estimated Average Glucose 100 mg/dl; Hemoglobin A1C 5.1 % (4.5-5.6)
[2022-04-20] MEDS: FIDAXOMICIN 200 MG TAB PO SCH ×2 (11:45→20:34)
[2022-04-20] MEDS: traMADol HCL 50 MG TABLET PO PRN ×2 (11:45→17:28)
[2022-04-20 16:35] LABS: A calco-baum cmplx NotReported Not Detected (NotDetected); Bact fragilis Not Reported Not Detected (NotDetected); C auris Not Reported Not Detected (NotDetected); Calbicans Not Reported Not Detected (NotDetected); Candida glabrata Not Reported Not Detected (NotDetected); Candida krusei Not Reported Not Detected (NotDetected); Cneoformans/gatti Not Reported Not Detected (NotDetected); Cparapsilosis Not Reported Not Detected (NotDetected); Ctropicalis Not Reported Not Detected (NotDetected); E cloacae compx Not Reported Not Detected (NotDetected); Efaecalis Not Reported Not Detected (NotDetected); Efaecium Not Reported Not Detected (NotDetected); Enterobacterales Not Reported Not Detected (NotDetected); Escherichia coli Not Reported Not Detected (NotDetected); H influenzae Not Reported Not Detected (NotDetected); K aerogenes Not Reported Not Detected (NotDetected); Koxytoca Not Reported Not Detected (NotDetected); Kpneumoniae grp Not Reported Not Detected (NotDetected); Lmonocyt Not Reported Not Detected (NotDetected); N meningitidis Not Reported Not Detected (NotDetected); P aeruginosa Not Reported Not Detected (NotDetected); Proteus spp Not Reported Not Detected (NotDetected); Salmonella spp Not Reported Not Detected (NotDetected); Smarcescens Not Reported Not Detected (NotDetected); Staph lugdunensis Not Reported Not Detected (NotDetected); Staph spp. Not Reported DETECTED (NotDetected); Staphaureus Not Reported Not Detected (NotDetected); Staphepi Not Reported Not Detected (NotDetected); Stenmaltophilia Not Reported Not Detected (NotDetected); Strep agal(GrpB) Not Reported Not Detected (NotDetected); Strep pneum Not Reported Not Detected (NotDetected); Strep pyog (GrpA) Not Reported Not Detected (NotDetected); Strep spp Not Reported Not Detected (NotDetected)
[2022-04-20 17:04] LABS: Staphylococcus spp. DETECTED (NotDetected)
[2022-04-20] MEDS ORDERED: VANCOMYCIN CONSULT ACTIVE PRN (17:09)
--- NOTE | 2022-04-20 17:16 | Hospitalist Progress Note ---
Date of Service April 20, 2022 Assessment & Plan (1) Weakness: Plan: Blood culture positive; underdose contaminant (coag negative staph) would explain; vancomycin, ID culture; multiple other factors such as recent chemo; diarrhea, C. difficile RI thank you you asked for a test (2) Gram-positive bacteremia: Plan: Repeat cultures, await identification, vancomycin for now (3) Chronic kidney disease, stage 4 (severe): Plan: Seems stablefollow (4) History of cancer chemotherapy: Plan: Mixed germ cell testicular cancer diagnosed 11/14/2021 CT at diagnosis with aortocaval adenopathy Last seen by heme-onc 04/06/2022. At that time planning for 3-month follow-up with 3-month interval CT, per pt has had good response to chemo - 30lbs since chemo started Completed 4 cycles of cisplatin/etoposide on 02/18/2022 Finished chemo according to him (5) Prolonged QT interval: Plan: Follow; maintain electrolytes (6) Non-sustained ventricular tachycardia: Plan: Stable on amiodaronecontinue; episode of V. tach with 1 appropriate ICD shock by historyat present does not seem urgent issue (7) Presence of single chamber implantable cardioverter-defibrillator (ICD): Plan: See above (8) CAD (coronary atherosclerotic disease): Plan: No angina, follow (9) Diabetes mellitus: Plan: Pharmacy glycemic consultsugars reasonable (10) Diarrhea: Plan: Unclear if recurrent C. difficile, gene positive; treat for now Plan Follow anemia and mild thrombocytopenia Large mastoid effusionlikely of no particular significance but ENT input Admission and Anticipated Discharge Date Admission Date: April 19, 2022 Subjective Follow-up of primary presentation with weakness-complain of pain near the right ear, 4 diarrheal stools Physical Exam Physical Exam: Constitutional and general: No acute distress, looks biologic age Head and face: No puffiness, atraumatic Eyes: No scleral icterus, extraocular movements normal Neck: Supple, no JVD Musculoskeletal: No acute joint swelling, no bony abnormalities Skin/dermatologic/integument: No rash, no purpura Hematologic and lymphatic: pallor +, no petechia Gastrointestinal/abdomen: Nondistended, soft, nonacute Neurologic: Cranial nerves intact, nonfocal Psychiatry: Awake, alert, pleasant, communicative Cardiovascular: Heart rhythm regular, no rub, no murmur, no gallop Respiratory: Chest movements equal, no use of accessory muscles, no adventitious sounds Extremities: No edema, no cyanosis Results & Data Results & Data ([place]) Vital Signs (Past 12 Hours) Vital Signs Temp Pulse Resp BP Pulse Ox O2 Del Method 04/20/22 16:14 36.5 C 57 L 16 130/64 100 Room Air 04/20/22 08:16 36.3 C L 53 L 16 121/64 100 Room Air Laboratory Results Laboratory Results - last 24 hr 04/19/22 04/19/22 04/19/22 15:00 15:02 16:15 WBC RBC Hgb Hct MCV MCH MCHC RDW Std Deviation RDW Coeff of David Plt Count MPV Immature Gran % (Auto) Neut % (Auto) Lymph % (Auto) [place] % (Auto) Eos % (Auto) Baso % (Auto) Neut # (Auto) Lymph # (Auto) [place] # (Auto) Eos # (Auto) Baso # (Auto) Immature Gran # (Auto) Sodium Potassium Chloride Carbon Dioxide Anion Gap BUN Creatinine Est Cr Clr Drug Dosing Est GFR ( Amer) Est GFR (Non-Af Amer) BUN/Creatinine Ratio Glucose POC Glucose Estimat Average Glucose Hemoglobin A1c Calcium Phosphorus 3.6 Magnesium Urine Color Urine Appearance Urine pH Ur Specific [place] Urine Protein Urine Glucose (UA) Urine Ketones Urine Blood Urine Nitrite Urine Bilirubin Urine Urobilinogen Ur Leukocyte Esterase Stl C. cayetanensis PCR Stool Rotavirus A PCR Stl Adenov F 40/41 PCR Stool Astrovirus (PCR) Stool Campylobacter PCR Stl C.difficile Tox A&B Stl C. diff Tox A/B PCR Stool Cryptosporidium PCR Stl E.coli Shiga Tox PCR Stl Enterotoxigenic E PCR Stool EPEC (PCR) Stool EAEC (PCR) Stl E. histolytica PCR Stool Giardia Lamblia PCR Stool Salmonella PCR Stool Sapovirus (PCR) Stl P. shigelloides PCR Stl Shigella/EIEC PCR St Y.enterocolitica PCR Stool Vibrio (PCR) Stl Vibrio cholerae PCR Stl Norovirus GI/GII PCR SARS-CoV-2 (PCR) NEGATIVE Influenza Type A (PCR) Negative Influenza Type B (PCR) Negative RSV (RT-PCR) Negative Staphylococcus sp PCR DETECTED A Bld Cult ID Panel PCR See PCR Comment 08/12/0604/19/22 04/20/22 18:49 22:12 05:15 WBC RBC Hgb Hct MCV MCH MCHC RDW Std Deviation RDW Coeff of David Plt Count MPV Immature Gran % (Auto) Neut % (Auto) Lymph % (Auto) [place] % (Auto) Eos % (Auto) Baso % (Auto) Neut # (Auto) Lymph # (Auto) [place] # (Auto) Eos # (Auto) Baso # (Auto) Immature Gran # (Auto) Sodium Potassium Chloride Carbon Dioxide Anion Gap BUN Creatinine Est Cr Clr Drug Dosing Est GFR ( Amer) Est GFR (Non-Af Amer) BUN/Creatinine Ratio Glucose POC Glucose 88 Estimat Average Glucose Hemoglobin A1c Calcium Phosphorus Magnesium Urine Color Yellow Urine Appearance Clear Urine pH 5.0 Ur Specific [place] 1.012 Urine Protein Negative Urine Glucose (UA) Negative Urine Ketones Negative Urine Blood Negative Urine Nitrite Negative Urine Bilirubin Negative Urine Urobilinogen Negative Ur Leukocyte Esterase Negative Stl C. cayetanensis PCR Not Detected Stool Rotavirus A PCR Not Detected Stl Adenov F 40/41 PCR Not Detected Stool Astrovirus (PCR) Not Detected Stool Campylobacter PCR Not Detected Stl C.difficile Tox A&B Negative Cdiff Toxin Stl C. diff Tox A/B PCR C.diff Gene Detected A Stool Cryptosporidium PCR Not Detected Stl E.coli Shiga Tox PCR Not Detected Stl Enterotoxigenic E PCR Not Detected Stool EPEC (PCR) Not Detected Stool EAEC (PCR) Not Detected Stl E. histolytica PCR Not Detected Stool Giardia Lamblia PCR Not Detected Stool Salmonella PCR Not Detected Stool Sapovirus (PCR) Not Detected Stl P. shigelloides PCR Not Detected Stl Shigella/EIEC PCR Not Detected St Y.enterocolitica PCR Not Detected Stool Vibrio (PCR) Not Detected Stl Vibrio cholerae PCR Not Detected Stl Norovirus GI/GII PCR Not Detected SARS-CoV-2 (PCR) Influenza Type A (PCR) Influenza Type B (PCR) RSV (RT-PCR) Staphylococcus sp PCR Bld Cult ID Panel PCR 04/20/22 04/20/22 04/20/22 07:39 07:39 07:39 WBC 8.51 RBC 3.09 L Hgb 9.5 L Hct 28.9 L MCV 93.5 MCH 30.7 MCHC 32.9 RDW Std Deviation 65.4 H RDW Coeff of David 19.0 H Plt Count 121 L MPV 12.9 H Immature Gran % (Auto) 1.4 Neut % (Auto) 74.1 Lymph % (Auto) 12.0 [place] % (Auto) 12.1 Eos % (Auto) 0.2 Baso % (Auto) 0.2 Neut # (Auto) 6.30 Lymph # (Auto) 1.02 L [place] # (Auto) 1.03 H Eos # (Auto) 0.02 Baso # (Auto) 0.02 Immature Gran # (Auto) 0.12 H Sodium 137 Potassium 3.5 Chloride 106 Carbon Dioxide 23 Anion Gap 8 BUN 27 H Creatinine 2.22 H D Est Cr Clr Drug Dosing 29.1 Est GFR ( Amer) 31.3 Est GFR (Non-Af Amer) 27.0 BUN/Creatinine Ratio 12.2 Glucose 87 POC Glucose Estimat Average Glucose 100 Hemoglobin A1c 5.1 Calcium 7.7 L Phosphorus 3.5 Magnesium 1.7 Urine Color Urine Appearance Urine pH Ur Specific [place] Urine Protein Urine Glucose (UA) Urine Ketones Urine Blood Urine Nitrite Urine Bilirubin Urine Urobilinogen Ur Leukocyte Esterase Stl C. cayetanensis PCR Stool Rotavirus A PCR Stl Adenov F 40/41 PCR Stool Astrovirus (PCR) Stool Campylobacter PCR Stl C.difficile Tox A&B Stl C. diff Tox A/B PCR Stool Cryptosporidium PCR Stl E.coli Shiga Tox PCR Stl Enterotoxigenic E PCR Stool EPEC (PCR) Stool EAEC (PCR) Stl E. histolytica PCR Stool Giardia Lamblia PCR Stool Salmonella PCR Stool Sapovirus (PCR) Stl P. shigelloides PCR Stl Shigella/EIEC PCR St Y.enterocolitica PCR Stool Vibrio (PCR) Stl Vibrio cholerae PCR Stl Norovirus GI/GII PCR SARS-CoV-2 (PCR) Influenza Type A (PCR) Influenza Type B (PCR) RSV (RT-PCR) Staphylococcus sp PCR Bld Cult ID Panel PCR 04/20/22 04/20/22 04/20/22 08:18 12:37 16:49 WBC RBC Hgb Hct MCV MCH MCHC RDW Std Deviation RDW Coeff of David Plt Count MPV Immature Gran % (Auto) Neut % (Auto) Lymph % (Auto) [place] % (Auto) Eos % (Auto) Baso % (Auto) Neut # (Auto) Lymph # (Auto) [place] # (Auto) Eos # (Auto) Baso # (Auto) Immature Gran # (Auto) Sodium Potassium Chloride Carbon Dioxide Anion Gap BUN Creatinine Est Cr Clr Drug Dosing Est GFR ( Amer) Est GFR (Non-Af Amer) BUN/Creatinine Ratio Glucose POC Glucose 88 96 88 Estimat Average Glucose Hemoglobin A1c Calcium Phosphorus Magnesium Urine Color Urine Appearance Urine pH Ur Specific [place] Urine Protein Urine Glucose (UA) Urine Ketones Urine Blood Urine Nitrite Urine Bilirubin Urine Urobilinogen Ur Leukocyte Esterase Stl C. cayetanensis PCR Stool Rotavirus A PCR Stl Adenov F 40/41 PCR Stool Astrovirus (PCR) Stool Campylobacter PCR Stl C.difficile Tox A&B Stl C. diff Tox A/B PCR Stool Cryptosporidium PCR Stl E.coli Shiga Tox PCR Stl Enterotoxigenic E PCR Stool EPEC (PCR) Stool EAEC (PCR) Stl E. histolytica PCR Stool Giardia Lamblia PCR Stool Salmonella PCR Stool Sapovirus (PCR) Stl P. shigelloides PCR Stl Shigella/EIEC PCR St Y.enterocolitica PCR Stool Vibrio (PCR) Stl Vibrio cholerae PCR Stl Norovirus GI/GII PCR SARS-CoV-2 (PCR) Influenza Type A (PCR) Influenza Type B (PCR) RSV (RT-PCR) Staphylococcus sp PCR Bld Cult ID Panel PCR PG Care Time/CCT Total # of Minutes Spent Total Time Spent with Patient: Total time spent is greater than 50% in coordination of care (as documented) at patient's floor/unit and/or counseling patient: Coding Level of Care Code 85841 Subseq Hosp Care Lvl 3 Diagnoses Weakness R53.1 Gram-positive bacteremia R78.81 Chronic kidney disease, stage 4 (severe) N18.4 History of cancer chemotherapy Z92.21 Prolonged QT interval R94.31 Non-sustained ventricular tachycardia I47.2 Presence of single chamber implantable cardioverter-defibrillator (ICD) Z95.810 CAD (coronary atherosclerotic disease) I25.10 Diabetes mellitus E11.22; N18.3 Chronic kidney disease stage: stage 3 (moderate) Diabetes mellitus complication detail: with chronic kidney disease Diabetes mellitus complication status: with kidney complications Diabetes mellitus supervisor long goods insulin use: without [facility] use Diabetes mellitus type: type 2 Diarrhea R19.7 (1) Diabetes mellitus Chronic kidney disease stage: stage 3 (moderate) Diabetes mellitus complication detail: with chronic kidney disease Diabetes mellitus complication status: with kidney complications Diabetes mellitus [facility] insulin use: without supervisor [employer] use Diabetes mellitus type: type 2 Qualified Code(s): E11.22 - Type 2 diabetes mellitus with diabetic chronic kidney disease; N18.3 - Chronic kidney disease, stage 3 (moderate)
[2022-04-20] MEDS ORDERED: VANCOMYCIN HCL 1,500 MG in SODIUM CHLORIDE 0.9% 500 ML IV ONE (17:30)
[2022-04-20] MEDS: GABAPENTIN 100 MG CAP PO SCH (20:34)
[2022-04-20] MEDS: TAMSULOSIN HCL 0.4 MG CAP PO SCH (20:34)
[2022-04-20] MEDS: HEPARIN 100 UNIT/ML 5ML FLUSH FLUSH PRN (20:36)
[2022-04-20] MEDS: LANTUS PER UNIT CHARGE SQ SCH (20:48)
[2022-04-21] MEDS: HEPARIN SOD 5,000 UNIT/0.5 ML VIAL SQ SCH ×2 (08:39→20:25)
[2022-04-21] MEDS: HEPARIN 100 UNIT/ML 5ML FLUSH FLUSH PRN (08:39)
[2022-04-21] MEDS: traMADol HCL 50 MG TABLET PO PRN ×2 (08:39→20:24)
[2022-04-21] MEDS: CALCIUM CARBONATE 1,250 MG/5 ML UDC PO SCH ×2 (08:40→20:24)
[2022-04-21] MEDS: INSULIN ASPART PER UNIT SC SCH ×4 (08:40→21:51)
[2022-04-21] MEDS: carvediloL 12.5 MG TAB PO SCH ×2 (08:40→17:37)
[2022-04-21] MEDS: CIPROFLOXACIN HCL 0.3% OP SOLN 2.5 ML BTL OT SCH ×2 (08:40→20:24)
[2022-04-21] MEDS: MAGNESIUM OXIDE 400 MG TAB PO SCH (08:44)
[2022-04-21] MEDS: ASPIRIN 81 MG ECTAB PO SCH (08:45)
[2022-04-21] MEDS: AMIODARONE 200 MG TAB PO SCH ×2 (08:45→17:36)
[2022-04-21] MEDS: FIDAXOMICIN 200 MG TAB PO SCH ×2 (08:48→20:33)
[2022-04-21 08:58] LABS: Basophils # (auto) 0.01 K/uL (0-0.2); Basophils % (auto) 0.1 %; Eosinophils # (auto) 0.05 K/uL (0-0.50); Eosinophils % (auto) 0.5 %; Hematocrit (blood only) 32.3 % (40.1-51.0); Hemoglobin 10.4 g/dl (14.0-18.0); Immature Granulocytes # (auto) 0.11 K/uL (0.00-0.02); Immature Granulocytes % (auto) 1.1 %; Lymphocytes # (auto) 0.95 K/uL (1.2-3.4); Lymphocytes % (auto) 9.7 %; Mean Corpuscular Hemoglobin 30.9 pg (25.0-34.0); Mean Corpuscular Hgb Conc 32.2 g/dL (32.0-36.0); Mean Corpuscular Volume 95.8 fL (80.0-100.0); Mean Platelet Volume 12.8 fL (9.4-12.4); Monocytes # (auto) 1.07 K/uL (0.24-0.82); Monocytes % (auto) 10.9 %; Neutrophils % (auto) 77.7 %; Platelet Count 147 K/uL (130-400); RDW Coefficient of Variation 19.2 % (11.5-14.5); RDW Standard Deviation 67.8 fL (36.4-46.3); Red Blood Count 3.37 M/uL (4.63-6.08); White Blood Count 9.79 K/ul (4.8-10.8)
[2022-04-21 09:20] LABS: Albumin Globulin Ratio 0.7 (0.9-2); Albumin Level 2.6 gm/dl (3.4-5.0); Bilirubin,Total 0.6 mg/dl (0.2-1.0); Calcium 8.3 mg/dl (8.5-10.1); Est GFR (African American) 43.2 ml/min; Est GFR (Non-African American) 37.3 ml/min; Globulin 3.5 gm/dl (2.5-4.0); Magnesium 1.7 mg/dl (1.7-2.4); Phosphorus 2.8 mg/dl (2.5-4.9); Potassium 4.1 mmol/L (3.5-5.1); Total Protein 6.1 gm/dl (6.0-8.3)
[2022-04-21] MEDS: ACETAMINOPHEN 325 MG TAB PO PRN (12:33)
--- NOTE | 2022-04-21 13:59 | Pharmacy Report ---
Pharmacy Glycemic Short Note 2 - Date of Service April 21, 2022 - Glycemic Short BSG Results (Last 24 hours): 04/20/22 04/20/22 04/20/22 16:49 17:31 20:33 POC Glucose 88 98 95 Fasting Glucose 04/21/22 04/21/22 04/21/22 08:02 08:29 12:03 POC Glucose 127 H 131 H Fasting Glucose 119 H OUTPATIENT ANTIDIABETIC REGIMEN: * Janument 50-1000 mg PO BIDM * Liraglutide 1.2 mg SC qAM HbA1c: 5.1% (04/20/22) ASSESSMENT: 04/21/22 * BSGs have been very well-controlled since admission with no insulin * Patient's PO intake has remained poor, although 27 carbs documented with lunch today * Will allow for possible addition of basal insulin this evening if needed 04/19/22 * 81 yo M with T2DM admitted for SHRAON, N/V, and poor po intake * No Lantus unless BSG > 140 mg/dL as random BSG OK and po intake has been poor * Initiate weight-based moderate stress Novolog PLAN FOR INPATIENT GLYCEMIC CONTROL: * Hold outpatient oral diabetes medications * Basal insulin * Lantus 0-5 units SQ HS (see EHR) * Bolus insulin * NovoLog per scale ACHS or Q6hrs while NPO * Goal Range: Low 110 mg/dL - High 140 mg/dL * Correction Factor: 35 mg/dL/unit * Nutritional / Prandial insulin per carb ratio of 1 unit per 12 grams CHO consumed
--- NOTE | 2022-04-21 15:22 | ENT Consultation ---
Date of Consultation April 21, 2022 Assessment & Plan (1) Chronic mastoiditis of right side: History of chronic mastoiditis status post tympanomastoidectomy, facial recess approach with reconstructed tympanic membrane. T-tube in place, patent with no sign of drainage. Opacification is most likely due to scar tissue and mastoid. No sign of infection at this time. No treatment needed. (2) Chronic mastoiditis of left side: History of Present Illness Reason for Consultation: Right opacified mastoid Attending Physician: Yesenia Leos MD History of Present Illness This 81-year-old gentleman had tympanomastoidectomy by [facility] for the right ear 2 years ago. He had persistent drainage. Facial recess approach was used with r econstructed tympanic membrane. T-tube was placed at that time. He denies further drainage. Hearing through the right ear. No pain or discomfort. Allergies Allergy/AdvReac Type Severity Reaction Status Date / Time No Known Drug Allergies Allergy nkda Verified 04/19/22 17:31 Home Medications Medication Instructions Recorded Confirmed Type cyanocobalamin (vitamin B-12) 5,000 mcg PO DAILY 11/13/18 04/19/22 History 5,000 mcg capsule multivitamin 1 tab PO BID 03/04/19 04/19/22 History aspirin 81 mg tablet,delayed 81 mg PO QAM 07/05/20 04/19/22 History release lutein 25 mg-zeaxanthin 5 mg 1 cap PO HS 11/05/20 04/19/22 History capsule krill oil 500 mg capsule 500 mg PO HS 07/18/21 04/19/22 History carvedilol 12.5 mg tablet 12.5 mg PO BID #180 tabs 08/29/21 04/19/22 Rx gabapentin 100 mg capsule 100 mg PO HS #90 caps 10/19/21 04/19/22 Rx amiodarone 200 mg tablet 200 mg PO BID #180 tabs 11/04/21 04/19/22 Rx pen needle,diabetic dual safty 30 #100 ea 11/07/21 04/19/22 Rx gauge x 3/16" (BD AutoShield Duo Pen Needle) tamsulosin 0.4 mg capsule 0.4 mg PO HS #30 caps 11/08/21 04/19/22 Rx ondansetron 4 mg disintegrating 4 mg PO Q8H PRN nausea and 11/11/21 04/19/22 Rx tablet vomiting #30 tabs sitagliptin 50 mg-metformin 1,000 1 tab PO BID diabetes mellitus 11/17/21 04/19/22 Rx mg tablet (Janumet) #180 tabs prochlorperazine maleate 10 mg 10 mg PO Q6H PRN Nausea 12/16/21 04/19/22 History tablet furosemide 20 mg tablet (Lasix) 20 mg PO BID 01/18/22 04/19/22 History Saccharomyces boulardii 250 mg 250 mg PO BID #60 caps 04/03/22 04/19/22 Rx capsule (Florastor) ciprofloxacin HCl 0.3 % eye drops See Rx Instructions ophthalmic 04/14/22 04/19/22 Rx (eye) .COMPLEX #10 mL liraglutide 0.6 mg/0.1 mL (18 mg/3 See Rx Instructions .Route 04/18/22 04/19/22 Rx mL) subcutaneous pen injector .COMPLEX #18 mL (Victoza 2-Ronen) acetaminophen 500 mg tablet 1,000 mg PO Q6H PRN Pain 04/19/22 04/19/22 History (Tylenol Extra Strength) Patient History Medical History Abdominal pain Atrial flutter Presented to the emergency room on August 16, 2020 after syncopal episode; arrhythmia identified on arrival- based on his ICD evaluation, converted with an ICD shock and "seems to have remained in sinus rhythm. His current interrogation demonstrates no further atrial flutter since that shock." No sycnope since that time (Per cardio note 07/18/21) Benign prostatic hyperplasia CAD (coronary artery disease) H/O OR 1988, S/P CABG 3 vessel 1998 Chronic kidney disease, stage 4 (severe) Chronic kidney disease, stage III (moderate) Dehydration Depression HX Diabetes mellitus, type 2 Germ cell cancer Reason for port placement - on chemo H/O acute myocardial infarction 1988 History of subarachnoid hemorrhage History of ventricular fibrillation s/p ICD [place] (hard of hearing) Hyperlipidemia ICD (implantable cardioverter-defibrillator) in place INITIALLY IMPLANTED 2002 ; GENERATOR CHANGE 2011 AND DECEMBER 02, 2019- [employer] Ischemic cardiomyopathy (Unknown) S/p ICD implantation EF 40% per most recent echo 08/2020 Retroperitoneal lymphadenopathy SNHL (sensorineural hearing loss) Testicular cancer with mets to the lymph nodes. Needle biopsy at [facility] dx 11/2021. Surgical History Difficult airway for intubation PT REPORTS WAS TOLD PT WAS DIFFICULT INTUBATION - UNKNOWN FURTHER DETAILS - ? SURGERY WAS TOLD THIS- POSSIBLY BYPASS SURGERY PER -PER PT 30+ YRS AGO? H/O tympanomastoidectomy RIGHT 11/12/20 [facility] History of adenoidectomy History of cardiac cath PRIOR TO HEART SURGERY, [facility] - NO STENT(S) History of cataract surgery R/L History of colonoscopy History of coronary artery bypass graft 3 VESSELS 1998 History of cystoscopy REMOVAL KIDNEY STONE History of laminectomy History of nasal septoplasty History of tonsillectomy and adenoidectomy History of tympanomastoidectomy (~12/2020) LEFT Implantation of internal cardiac defibrillator (05/02/12) Port-A-Cath in place (12/22/21) Insertion of Access Port Right Subclavian with Fluoroscopy(Right) - Ivan Peacock, 12/22/2021 S/P ICD (internal cardiac defibrillator) procedure Placed 2002, generator change 2011 and 2019 Family History Mother Breast cancer Family history of diabetes mellitus Grandmother (Maternal) No problems noted. Grandmother (Paternal) Myocardial infarction Breast cancer Father Myocardial infarction Brother Brain cancer Sister Cancer Denies family history of Ovarian cancer Prostate cancer Colorectal cancer Social History Smoking Status: Former smoker Tobacco Type: Cigarettes packs per day: 2; Years Smoked: 31; Cigarettes Per Day: 2.5; Second Hand Exposure: No; Do You Dip or Chew Tobacco: No; Hx Alcohol Use: No Hx Substance Use: No Preferred Language: Malawian Communication Ability: Effective Visual Impairment: No Limitations Hearing Ability: Normal Clinical Services Specialist Required: No Beliefs That Will Affect Care: None marital status: Current Living Situation: Spouse current occupational status: 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 How many Children do You have: 1 Other Information That Helps Us Care for You: No Feels Safe at Home: Yes Safety Concerns: Feels Safe At This Time Childhood Exposure to Second-Hand Smoke: No Diet Comment: "go low" Dental Care, Regularly: Yes Physical Activity Frequency: 1-2 Times per Week Seatbelt Use: always Sunscreen Use: No Assistive Devices: Cane and Walker Assistive Devices Comment: shower chair Physical Exam Constitutional: WD/WN, vitals as above Eyes: PERRL, conjunctivae normal, anicteric sclerae ENMT: external ear and nose normal, oropharynx normal Ears: + TM abnormality (T tubes in place in both TMs with no drainage) Neck: trachea midline, no thyromegaly Results & Data ([facility]) Vital Signs (Past 12 Hours) Vital Signs Temp Pulse Resp BP Pulse Ox O2 Del Method 04/21/22 14:29 36.3 C L 61 16 147/75 H 99 Room Air 04/21/22 07:12 36.3 C L 54 L 16 136/76 100 Room Air Diagnostic Findings CT of head reviewed. Opacified right mastoid with previous mastoidectomy defect
--- NOTE | 2022-04-21 15:59 | Hospitalist Progress Note ---
Date of Service April 21, 2022 Assessment & Plan (1) Weakness: Plan: No clear single factor identified; other than positive C. difficile which may not necessarily be relapse though being treated as suchtoday feels better, supportive care (2) Gram-positive bacteremia: Plan: Appears contaminantCNS (3) Chronic kidney disease, stage 4 (severe): Plan: Slightly improved, could be a factor in #1follow (4) History of cancer chemotherapy: Plan: Mixed germ cell testicular cancer diagnosed 11/14/2021 CT at diagnosis with aortocaval adenopathy Last seen by heme-onc 04/06/2022. At that time planning for 3-month follow-up with 3-month interval CT, per pt has had good response to chemo - 30lbs since chemo started Completed 4 cycles of cisplatin/etoposide on 02/18/2022 Finished chemo according to him; Oncology follow-up (5) Prolonged QT interval: Plan: Follow; maintain electrolytes (6) Non-sustained ventricular tachycardia: Plan: Stable on amiodaronecontinue; episode of V. tach with 1 appropriate ICD shock by historyat present does not seem urgent issue (7) Presence of single chamber implantable cardioverter-defibrillator (ICD): Plan: See above (8) CAD (coronary atherosclerotic disease): Plan: No angina, follow (9) Diabetes mellitus: Plan: Pharmacy glycemic consultsugars reasonable (10) Diarrhea: Plan: Unclear if recurrent C. difficile, gene positive; treat for now Plan Follow anemia Large mastoid effusionlikely of no particular significance but ENT input Right TMJ painpersistent; will CT Admission and Anticipated Discharge Date Admission Date: April 19, 2022 Subjective Follow-up of primary presentation with weakness-overall feels better; diarrhea better; does have discomfort right TMJ Physical Exam Physical Exam: Constitutional and general: No acute distress, looks biologic age Head and face: No puffiness, atraumatic Eyes: No scleral icterus, extraocular movements normal Neck: Supple, no JVD Musculoskeletal: No acute joint swelling, no bony abnormalities Skin/dermatologic/integument: No rash, no purpura Hematologic and lymphatic: pallor +, no petechia Gastrointestinal/abdomen: Nondistended, soft, nonacute Neurologic: Cranial nerves intact, nonfocal Psychiatry: Awake, alert, pleasant, communicative Cardiovascular: Heart rhythm regular, no rub, no murmur, no gallop Respiratory: Chest movements equal, no use of accessory muscles, no adventitious sounds Extremities: No edema, no cyanosis Results & Data Results & Data ([facility]) Vital Signs (Past 12 Hours) Vital Signs Temp Pulse Resp BP Pulse Ox O2 Del Method 04/21/22 14:29 36.3 C L 61 16 147/75 H 99 Room Air 04/21/22 07:12 36.3 C L 54 L 16 136/76 100 Room Air Laboratory Results Laboratory Results - last 24 hr 04/19/22 04/20/22 04/20/22 15:00 16:49 17:31 WBC RBC Hgb Hct MCV MCH MCHC RDW Std Deviation RDW Coeff of David Plt Count MPV Immature Gran % (Auto) Neut % (Auto) Lymph % (Auto) [place] % (Auto) Eos % (Auto) Baso % (Auto) Neut # (Auto) Lymph # (Auto) [place] # (Auto) Eos # (Auto) Baso # (Auto) Immature Gran # (Auto) Sodium Potassium Chloride Carbon Dioxide Anion Gap BUN Creatinine Est Cr Clr Drug Dosing Est GFR ( Amer) Est GFR (Non-Af Amer) POC Glucose 88 98 Fasting Glucose Calcium Phosphorus Magnesium Total Bilirubin AST ALT Alkaline Phosphatase Total Protein Albumin Globulin Albumin/Globulin Ratio Random Vancomycin Staphylococcus sp PCR DETECTED A Bld Cult ID Panel PCR See PCR Comment 04/20/22 04/21/22 04/21/22 20:33 08:02 08:29 WBC 9.79 RBC 3.37 L Hgb 10.4 L Hct 32.3 L MCV 95.8 MCH 30.9 MCHC 32.2 RDW Std Deviation 67.8 H RDW Coeff of David 19.2 H Plt Count 147 MPV 12.8 H Immature Gran % (Auto) 1.1 Neut % (Auto) 77.7 Lymph % (Auto) 9.7 [place] % (Auto) 10.9 Eos % (Auto) 0.5 Baso % (Auto) 0.1 Neut # (Auto) 7.60 H Lymph # (Auto) 0.95 L [place] # (Auto) 1.07 H Eos # (Auto) 0.05 Baso # (Auto) 0.01 Immature Gran # (Auto) 0.11 H Sodium Potassium Chloride Carbon Dioxide Anion Gap BUN Creatinine Est Cr Clr Drug Dosing Est GFR ( Amer) Est GFR (Non-Af Amer) POC Glucose 95 127 H Fasting Glucose Calcium Phosphorus Magnesium Total Bilirubin AST ALT Alkaline Phosphatase Total Protein Albumin Globulin Albumin/Globulin Ratio Random Vancomycin Staphylococcus sp PCR Bld Cult ID Panel PCR 04/21/22 04/21/22 04/21/22 08:29 08:29 12:03 WBC RBC Hgb Hct MCV MCH MCHC RDW Std Deviation RDW Coeff of David Plt Count MPV Immature Gran % (Auto) Neut % (Auto) Lymph % (Auto) [place] % (Auto) Eos % (Auto) Baso % (Auto) Neut # (Auto) Lymph # (Auto) [place] # (Auto) Eos # (Auto) Baso # (Auto) Immature Gran # (Auto) Sodium 136 Potassium 4.1 Chloride 105 Carbon Dioxide 22 Anion Gap 9 BUN 23 Creatinine 1.70 H D Est Cr Clr Drug Dosing 38.0 Est GFR ( Amer) 43.2 Est GFR (Non-Af Amer) 37.3 POC Glucose 131 H Fasting Glucose 119 H Calcium 8.3 L Phosphorus 2.8 Magnesium 1.7 Total Bilirubin 0.6 AST 22 ALT 13 Alkaline Phosphatase 88 Total Protein 6.1 Albumin 2.6 L Globulin 3.5 Albumin/Globulin Ratio 0.7 L Random Vancomycin Staphylococcus sp PCR Bld Cult ID Panel PCR PG Care Time/CCT Total # of Minutes Spent Total Time Spent with Patient: Total time spent is greater than 50% in coordination of care (as documented) at patient's floor/unit and/or counseling patient: Coding Level of Care Code 29922 Subseq Hosp Care Lvl 2 Diagnoses Weakness R53.1 Gram-positive bacteremia R78.81 Chronic kidney disease, stage 4 (severe) N18.4 History of cancer chemotherapy Z92.21 Prolonged QT interval R94.31 Non-sustained ventricular tachycardia I47.2 Presence of single chamber implantable cardioverter-defibrillator (ICD) Z95.810 CAD (coronary atherosclerotic disease) I25.10 Diabetes mellitus E11.22; N18.3 Chronic kidney disease stage: stage 3 (moderate) Diabetes mellitus complication detail: with chronic kidney disease Diabetes mellitus complication status: with kidney complications Diabetes mellitus assisted insulin use: without assisted use Diabetes mellitus type: type 2 Diarrhea R19.7 (1) Diabetes mellitus Chronic kidney disease stage: stage 3 (moderate) Diabetes mellitus complication detail: with chronic kidney disease Diabetes mellitus complication status: with kidney complications 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
--- NOTE | 2022-04-21 17:14 | CT Scan Report ---
MAXILLOFACIAL CT CT DOSE: 755.55 mGy.cm HISTORY: Persistent jaw pain right side TECHNIQUE: Multiaxial CT images of the maxillofacial region were performed and reformatted in the cor onal plane without the use of contrast. A dose lowering technique was utilized adhering to the princ iplFausto. COMPARISON: None. FINDINGS: The visualized cervical spine,, pterygoid plates, zygomatic arches, lamina papyracea, and o rbital floors are intact. Old nasal bone fractures are noted. Left deviation of the nasal septum. The paranasal sinuses and left mastoid air cells are clear. Evidence for prior right mastoidectomy with small amount of fluid remaining at the resection site. No fracture or dislocation within the mandible . No significant degenerative changes within the temporomandibular joints. However, there is asymmetr ic soft tissue thickening surrounding the angle and ramus of the right hemimandible primarily involvi ng the auto mechanic apprentice muscles at this location. This includes the distal temporalis, lateral pterygoid, m asseter, and buccinator muscles. No definite fluid collections on this noncontrast study. There is qu estionable minimal fat stranding at this location. No bony destruction identified. No lymphadenopathy within the upper cervical region. IMPRESSION: 1. Asymmetric soft tissue thickening surrounding the angle and ramus of the right hemimandible and in volving the auto mechanic apprentice muscles at this location as described above. There is minimal adjacent fat str anding at this location. Therefore, this could represent an inflammatory/infectious process or possib ly a soft tissue mass. ENT consultation recommended for further evaluation. 2. No fracture or dislocation within the mandible. ACT 112: Positive. There are findings on this exam that require communication between the performing entity and the patient following Patient Test Result Information Act ([place] Act 112) guidelines. Electronically signed by: Jhoan Alvarez M.D. 04/21/2022 5:13 PM
[2022-04-21] MEDS: TAMSULOSIN HCL 0.4 MG CAP PO SCH (20:24)
[2022-04-21] MEDS: GABAPENTIN 100 MG CAP PO SCH (20:24)
[2022-04-21] MEDS: LANTUS PER UNIT CHARGE SQ SCH (21:52)
[2022-04-22 07:03] LABS: Basophils # (auto) 0.01 K/uL (0-0.2); Basophils % (auto) 0.1 %; Eosinophils # (auto) 0.06 K/uL (0-0.50); Eosinophils % (auto) 0.7 %; Hematocrit (blood only) 32.9 % (40.1-51.0); Hemoglobin 10.7 g/dl (14.0-18.0); Immature Granulocytes # (auto) 0.09 K/uL (0.00-0.02); Immature Granulocytes % (auto) 1.1 %; Lymphocytes # (auto) 1.15 K/uL (1.2-3.4); Lymphocytes % (auto) 13.6 %; Mean Corpuscular Hemoglobin 31.2 pg (25.0-34.0); Mean Corpuscular Hgb Conc 32.5 g/dL (32.0-36.0); Mean Corpuscular Volume 95.9 fL (80.0-100.0); Mean Platelet Volume 12.4 fL (9.4-12.4); Monocytes # (auto) 1.23 K/uL (0.24-0.82); Monocytes % (auto) 14.6 %; Neutrophils # (auto) 5.89 K/uL (1.4-6.5); Neutrophils % (auto) 69.9 %; Platelet Count 138 K/uL (130-400); RDW Coefficient of Variation 19.1 % (11.5-14.5); RDW Standard Deviation 67.4 fL (36.4-46.3); Red Blood Count 3.43 M/uL (4.63-6.08); White Blood Count 8.43 K/ul (4.8-10.8)
[2022-04-22 07:36] LABS: Albumin Globulin Ratio 0.8 (0.9-2); Albumin Level 2.6 gm/dl (3.4-5.0); Bilirubin,Total 0.6 mg/dl (0.2-1.0); Calcium 8.3 mg/dl (8.5-10.1); Creatinine Clr Calc Pharmacy 41.2 ml/min; Est GFR (African American) 47.5 ml/min; Globulin 3.3 gm/dl (2.5-4.0); Magnesium 1.6 mg/dl (1.7-2.4); Phosphorus 2.3 mg/dl (2.5-4.9); Potassium 4.3 mmol/L (3.5-5.1); Total Protein 5.9 gm/dl (6.0-8.3)
[2022-04-22] MEDS ORDERED: GLUCOSE 10 TAB/TUBE PO PRN (07:45)
[2022-04-22] MEDS ORDERED: GLUCOSE 40% GEL 15 GM TUBE PO PRN (07:45)
[2022-04-22] MEDS ORDERED: DEXTROSE 50% 50 ML SYRINGE IV PRN (07:45)
[2022-04-22] MEDS ORDERED: CARBOHYDRATES FOR HYPOGLYCEMIA PO PRN (07:45)
[2022-04-22] MEDS ORDERED: GLUCAGON FOR INJ 1 MG VIAL IM PRN (07:45)
[2022-04-22] MEDS: carvediloL 12.5 MG TAB PO SCH ×2 (08:46→17:51)
[2022-04-22] MEDS: CALCIUM CARBONATE 1,250 MG/5 ML UDC PO SCH ×2 (08:54→21:07)
[2022-04-22] MEDS: AMIODARONE 200 MG TAB PO SCH ×2 (08:54→17:53)
[2022-04-22] MEDS: traMADol HCL 50 MG TABLET PO PRN ×2 (08:54→15:12)
[2022-04-22] MEDS: ASPIRIN 81 MG ECTAB PO SCH (08:54)
[2022-04-22] MEDS: MAGNESIUM OXIDE 400 MG TAB PO SCH (08:55)
[2022-04-22] MEDS: HEPARIN SOD 5,000 UNIT/0.5 ML VIAL SQ SCH ×2 (08:55→21:07)
[2022-04-22] MEDS: CIPROFLOXACIN HCL 0.3% OP SOLN 2.5 ML BTL OT SCH (08:55)
[2022-04-22] MEDS: INSULIN ASPART PER UNIT SC SCH ×4 (09:01→21:03)
[2022-04-22] MEDS: FIDAXOMICIN 200 MG TAB PO SCH ×2 (09:02→21:16)
--- NOTE | 2022-04-22 09:24 | Oral/Maxillofacial Consult ---
Date of Consultation April 22, 2022 Assessment & Plan (1) Failure of dental implant due to infection: (2) Pathological resorption of teeth, unspecified: History of Present Illness Reason for Consultation: Right side jaw pain Attending Physician: Yesenia Leos MD History of Present Illness Oral Maxillofacial Surgery Exam---Persistent right side jaw pain Present Complaint: Evaluation of pain right TMJ and angle of the jaw. There is pus coming from the lower right tooth # 29 which is a dental implant that is failing. I will be getting the dental x rays from his dentist to see the status of this implant and if it is possible to remove while in the hospital. I do not believe we have the instruments to remove a dental implant unless the implant is not integrated and can be removed as a simple extraction--once I get the X Rays this can be decided. Imaging: MAXILLOFACIAL CT HISTORY: Persistent jaw pain right side FINDINGS: The visualized cervical spine,, pterygoid plates, zygomatic arches, lamina papyracea, and orbital floors are intact. Old nasal bone fractures are noted. Left deviation of the nasal septum. The paranasal sinuses and left mastoid air cells are clear. Evidence for prior right mastoidectomy with small amount of fluid remaining at the resection site. No fracture or dislocation within the mandible. No significant degenerative changes within the temporomandibular joints. However, there is asymmetric soft tissue thickening surrounding the angle and ramus of the right hemimandible primarily involving the install and repair technician muscles at this location. This includes the distal temporalis, lateral pterygoid, masseter, and buccinator muscles. No definite fluid collections on this noncontrast study. There is questionable minimal fat stranding at this location. No bony destruction identified. No lymphadenopathy within the upper cervical region. IMPRESSION: 1. Asymmetric soft tissue thickening surrounding the angle and ramus of the right hemimandible and involving the install and repair technician muscles at this location as described above. There is minimal adjacent fat stranding at this location. Therefore, this could represent an inflammatory/infectious process or possibly a soft tissue mass. ENT consultation recommended for further evaluation. 2. No fracture or dislocation within the mandible. Treatment Plan: Based on the recent CT scan there is no TMJ bony pathology noted. Of interest there is a large either carious or resorptive defect of the distal of tooth # 31 (lower right ) associated with an impacted lower wisdom tooth # 32. There is a failing dental implant at site # 29. This process has been going on for years but may now be causing referred pain to the angle of the jaw and TMJ area. The patient was recently at his dentist who suggested TMJ etiology for the jaw pain. I will call his and try to get information as who the dentist is and then follow up with that dentist. The dentist is Dr Xiao in [place]--I will call the office and obtain the information I need to determine what can be done while in the hospital vs as an out patient Tooth # 31 (lower right last molar) is decayed and fractured and removal may be needed for # 31 as well as removal of failing and infected dental implant # 29 I received the current X rays but they were not helpful . The last set of dental X Rays was taken over 5 years ago. I am not able to determine the prognosis of the implant at # 29 or if the infection is from the implant, # 28 or the failed # 30 implant site. I have e mailed Dr Xiao to get Mr. Carroll into her office [place]THE[place] to obtain a set of dental X Rays so a treatment plan can be developed and extraction of an teeth or implants with a poor prognosis can be taken care of. From OMS point of view OK for discharge with follow up at his dentist MATTHEW X Ray and tx plan will be sent to me for coordination of care once tx plan finalized. Suggest oral antibiotics and Peridex. I called Mr Carroll and informed him of my suggestions and need for follow up MATTHEW with Dr Xiao. Allergies Allergy/AdvReac Type Severity Reaction Status Date / Time No Known Drug Allergies Allergy nkda Verified 04/19/22 17:31 Home Medications Medication Instructions Recorded Confirmed Type cyanocobalamin (vitamin B-12) 5,000 mcg PO DAILY 11/13/18 04/19/22 History 5,000 mcg capsule multivitamin 1 tab PO BID 03/04/19 04/19/22 History aspirin 81 mg tablet,delayed 81 mg PO QAM 07/05/20 04/19/22 History release lutein 25 mg-zeaxanthin 5 mg 1 cap PO HS 11/05/20 04/19/22 History capsule krill oil 500 mg capsule 500 mg PO HS 07/18/21 04/19/22 History carvedilol 12.5 mg tablet 12.5 mg PO BID #180 tabs 08/29/21 04/19/22 Rx gabapentin 100 mg capsule 100 mg PO HS #90 caps 10/19/21 04/19/22 Rx amiodarone 200 mg tablet 200 mg PO BID #180 tabs 11/04/21 04/19/22 Rx pen needle,diabetic dual safty 30 #100 ea 11/07/21 04/19/22 Rx gauge x 3/16" (BD AutoShield Duo Pen Needle) tamsulosin 0.4 mg capsule 0.4 mg PO HS #30 caps 11/08/21 04/19/22 Rx ondansetron 4 mg disintegrating 4 mg PO Q8H PRN nausea and 11/11/21 04/19/22 Rx tablet vomiting #30 tabs sitagliptin 50 mg-metformin 1,000 1 tab PO BID diabetes mellitus 11/17/21 04/19/22 Rx mg tablet (Janumet) #180 tabs prochlorperazine maleate 10 mg 10 mg PO Q6H PRN Nausea 12/16/21 04/19/22 History tablet furosemide 20 mg tablet (Lasix) 20 mg PO BID 01/18/22 04/19/22 History Saccharomyces boulardii 250 mg 250 mg PO BID #60 caps 04/03/22 04/19/22 Rx capsule (Florastor) ciprofloxacin HCl 0.3 % eye drops See Rx Instructions ophthalmic 04/14/22 04/19/22 Rx (eye) .COMPLEX #10 mL liraglutide 0.6 mg/0.1 mL (18 mg/3 See Rx Instructions .Route 04/18/22 04/19/22 Rx mL) subcutaneous pen injector .COMPLEX #18 mL (Victoza 2-Ronen) acetaminophen 500 mg tablet 1,000 mg PO Q6H PRN Pain 04/19/22 04/19/22 History (Tylenol Extra Strength) Patient History Medical History Abdominal pain Atrial flutter Presented to the emergency room on August 16, 2020 after syncopal episode; arrhythmia identified on arrival- based on his ICD evaluation, converted with an ICD shock and "seems to have remained in sinus rhythm. His current interrogation demonstrates no further atrial flutter since that shock." No sycnope since that time (Per cardio note 07/18/21) Benign prostatic hyperplasia CAD (coronary artery disease) H/O FL 1988, S/P CABG 3 vessel 1998 Chronic kidney disease, stage 4 (severe) Chronic kidney disease, stage III (moderate) Dehydration Depression HX Diabetes mellitus, type 2 Germ cell cancer Reason for port placement - on chemo H/O acute myocardial infarction 1988 History of subarachnoid hemorrhage History of ventricular fibrillation s/p ICD UNALAKLEET (hard of hearing) Hyperlipidemia ICD (implantable cardioverter-defibrillator) in place INITIALLY IMPLANTED 2002 ; GENERATOR CHANGE 2011 AND DECEMBER 02, 2019- [employer] Ischemic cardiomyopathy (Unknown) S/p ICD implantation EF 40% per most recent echo 08/2020 Retroperitoneal lymphadenopathy SNHL (sensorineural hearing loss) Testicular cancer with mets to the lymph nodes. Needle biopsy at [facility] dx 11/2021. Surgical History Difficult airway for intubation PT REPORTS WAS TOLD PT WAS DIFFICULT INTUBATION - UNKNOWN FURTHER DETAILS - ? SURGERY WAS TOLD THIS- POSSIBLY BYPASS SURGERY PER -PER PT 30+ YRS AGO? H/O tympanomastoidectomy RIGHT 11/12/20 [facility] History of adenoidectomy History of cardiac cath PRIOR TO HEART SURGERY, [facility] - NO STENT(S) History of cataract surgery R/L History of colonoscopy History of coronary artery bypass graft 3 VESSELS 1998 History of cystoscopy REMOVAL KIDNEY STONE History of laminectomy History of nasal septoplasty History of tonsillectomy and adenoidectomy History of tympanomastoidectomy (~12/2020) LEFT Implantation of internal cardiac defibrillator (05/02/12) Port-A-Cath in place (12/22/21) Insertion of Access Port Right Subclavian with Fluoroscopy(Right) - Ivan Peacock, 12/22/2021 S/P ICD (internal cardiac defibrillator) procedure Placed 2002, generator change 2011 and 2019 Family History Mother Breast cancer Family history of diabetes mellitus Grandmother (Maternal) No problems noted. Grandmother (Paternal) Myocardial infarction Breast cancer Father Myocardial infarction Brother Brain cancer Sister Cancer Denies family history of Ovarian cancer Prostate cancer Colorectal cancer Social History Smoking Status: Former smoker Tobacco Type: Cigarettes packs per day: 2; Years Smoked: 31; Cigarettes Per Day: 2.5; Second Hand Exposure: No; Do You Dip or Chew Tobacco: No; Hx Alcohol Use: No Hx Substance Use: No Preferred Language: [place] Communication Ability: Effective Visual Impairment: No Limitations Hearing Ability: Normal Demolition Specialist Required: No Beliefs That Will Affect Care: None marital status: Current Living Situation: Spouse current occupational status: 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 How many Children do You have: 1 Other Information That Helps Us Care for You: No Feels Safe at Home: Yes Safety Concerns: Feels Safe At This Time Childhood Exposure to Second-Hand Smoke: No Diet Comment: "go low" Dental Care, Regularly: Yes Physical Activity Frequency: 1-2 Times per Week Seatbelt Use: always Sunscreen Use: No Assistive Devices: Cane and Walker Assistive Devices Comment: shower chair Results & Data ([facility]) Vital Signs (Past 12 Hours) Vital Signs Temp Pulse Resp BP Pulse Ox O2 Del Method 04/22/22 07:45 Room Air 04/22/22 07:30 36.5 C 68 16 95/57 L 97 Room Air 04/21/22 22:16 36.5 C 66 16 95/57 L 97 Room Air PG Care Time/CCT Total # of Minutes Spent Total Time Spent with Patient: Total time spent is greater than 50% in coordination of care (as documented) at patient's floor/unit and/or counseling patient: 60 [place] [address] Initial Inpt Care Lvl 3 Patient Type New History Expanded Problem Focused Exam Problem Focused Medical Decision Making Moderate Complexity Diagnoses 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
--- NOTE | 2022-04-22 11:19 | Pharmacy Report ---
Pharmacy Glycemic Sign Off Nt - Date of Service April 22, 2022 - Assessment & Plan ASSESSMENT: * Pharmacy was consulted by Dr. Moy on 04/19/22 for glycemic control and to write orders per formerly [facility] inpatient glycemic control protocol. * Major changes made by pharmacy to antidiabetic regimen include: * Holding oral meds and starting basal bolus insulin * Patient has been receiving/requiring 0-5 units of insulin per day for adequate glycemic control * BSGs ranging 88-131 mg/dl * Regimen has only required minor adjustments over the past 48hrs to achieve this level of control * Do not anticipate further changes in patient status that would quickly deteriorate glycemic control (i.e. patient to be NPO for upcoming procedure, steroids tapering, starting tube feedings, etc). * Please see recommendations for outpatient antidiabetic regimen below. PLAN FOR INPATIENT GLYCEMIC CONTROL: No changes needed to current regimen. * Continue basal insulin with Lantus 0-5 units SC HS per scale (see eMAR) * Continue NovoLog per scale ACHS/Q6hrs while NPO * Goal range = 110-140 mg/dl * CF = 35 mg/dl/unit * CR = 1 unit for ever 12 g CHO consumed * Pharmacy is signing off of glycemic consult and will no longer be making adjustments to inpatient regimen. Please feel free to re-consult if needed. Thank you.
[2022-04-22] MEDS: MAGNESIUM SULFATE / D5W 1 GM/100 ML BAG IV SCH ×3 (12:26→16:10)
--- NOTE | 2022-04-22 16:37 | Hospitalist Progress Note ---
Date of Service April 22, 2022 Assessment & Plan (1) Weakness: Plan: No clear single factor identified; other than positive C. difficile which may not necessarily be relapse though being treated as suchfeels better, supportive care (2) Gram-positive bacteremia: Plan: Appears contaminantCNS (3) History of cancer chemotherapy: Plan: Mixed germ cell testicular cancer diagnosed 11/14/2021 CT at diagnosis with aortocaval adenopathy Last seen by heme-onc 04/06/2022. At that time planning for 3-month follow-up with 3-month interval CT, per pt has had good response to chemo - 30lbs since chemo started Completed 4 cycles of cisplatin/etoposide on 02/18/2022 Finished chemo according to him; Oncology follow-up (4) Prolonged QT interval: Plan: Follow; maintain electrolytes (5) Non-sustained ventricular tachycardia: Plan: Stable on amiodaronecontinue; episode of V. tach with 1 appropriate ICD shock by historyat present does not seem urgent issue (6) Presence of single chamber implantable cardioverter-defibrillator (ICD): Plan: See above (7) CAD (coronary atherosclerotic disease): Plan: No angina, follow (8) Diabetes mellitus: Plan: Pharmacy glycemic consultsugars reasonable (9) Diarrhea: Plan: Unclear if recurrent C. difficile, gene positive; treat for now and improving (10) CKD (chronic kidney disease): Plan: Appears underlying CKD, stage III based on current parameters, fluctuating but improvedfollow Plan Follow anemia Abnormality seen on facial CT unclear significanceoverall surgery consulted but ultimately may be outpatient follow-up; at present hold off antibiotics in this regard CRP notedagain unclear significance; clinically follow Repeat Pro-Ashvin in a.m. can observe sodium, phosphate Admission and Anticipated Discharge Date Admission Date: April 19, 2022 Subjective Follow-up of primary presentation with weakness-overall feels better; diarrhea better Physical Exam Physical Exam: Constitutional and general: No acute distress, looks biologic age Head and face: No puffiness, atraumatic Eyes: No scleral icterus, extraocular movements normal Neck: Supple, no JVD Musculoskeletal: No acute joint swelling, no bony abnormalities Skin/dermatologic/integument: No rash, no purpura Hematologic and lymphatic: pallor +, no petechia Gastrointestinal/abdomen: distended, soft, nonacute Neurologic: Cranial nerves intact, nonfocal Psychiatry: Awake, alert, pleasant, communicative Cardiovascular: Heart rhythm regular, no rub, no murmur, no gallop Respiratory: Chest movements equal, no use of accessory muscles, no adventitious sounds Extremities: No edema, no cyanosis Results & Data Results & Data ([facility]) Vital Signs (Past 12 Hours) Vital Signs Temp Pulse Resp BP Pulse Ox O2 Del Method 04/22/22 15:06 36.5 C 70 18 129/72 100 Room Air 04/22/22 07:45 Room Air 04/22/22 07:30 36.5 C 68 16 95/57 L 97 Room Air Laboratory Results Laboratory Results - last 24 hr 04/21/22 04/21/22 04/21/22 08:29 08:29 17:16 WBC RBC Hgb Hct MCV MCH MCHC RDW Std Deviation RDW Coeff of David Plt Count MPV Immature Gran % (Auto) Neut % (Auto) Lymph % (Auto) [place] % (Auto) Eos % (Auto) Baso % (Auto) Neut # (Auto) Lymph # (Auto) [place] # (Auto) Eos # (Auto) Baso # (Auto) Immature Gran # (Auto) Sodium Potassium Chloride Carbon Dioxide Anion Gap BUN Creatinine Est Cr Clr Drug Dosing Est GFR ( Amer) Est GFR (Non-Af Amer) POC Glucose 107 H Fasting Glucose Calcium Phosphorus Magnesium Total Bilirubin AST ALT Alkaline Phosphatase C-Reactive Protein 10.00 H Total Protein Albumin Globulin Albumin/Globulin Ratio Procalcitonin 0.28 04/21/22 04/22/22 04/22/22 20:46 06:46 06:46 WBC 8.43 RBC 3.43 L Hgb 10.7 L Hct 32.9 L MCV 95.9 MCH 31.2 MCHC 32.5 RDW Std Deviation 67.4 H RDW Coeff of David 19.1 H Plt Count 138 MPV 12.4 Immature Gran % (Auto) 1.1 Neut % (Auto) 69.9 Lymph % (Auto) 13.6 [place] % (Auto) 14.6 Eos % (Auto) 0.7 Baso % (Auto) 0.1 Neut # (Auto) 5.89 Lymph # (Auto) 1.15 L [place] # (Auto) 1.23 H Eos # (Auto) 0.06 Baso # (Auto) 0.01 Immature Gran # (Auto) 0.09 H Sodium 135 L Potassium 4.3 Chloride 104 Carbon Dioxide 25 Anion Gap 6 BUN 19 Creatinine 1.57 H Est Cr Clr Drug Dosing 41.2 Est GFR ( Amer) 47.5 Est GFR (Non-Af Amer) 41.0 POC Glucose 101 H Fasting Glucose 111 H Calcium 8.3 L Phosphorus 2.3 L Magnesium 1.6 L Total Bilirubin 0.6 AST 19 ALT 11 Alkaline Phosphatase 85 C-Reactive Protein Total Protein 5.9 L Albumin 2.6 L Globulin 3.3 Albumin/Globulin Ratio 0.8 L Procalcitonin 04/22/22 04/22/22 07:48 11:56 WBC RBC Hgb Hct MCV MCH MCHC RDW Std Deviation RDW Coeff of David Plt Count MPV Immature Gran % (Auto) Neut % (Auto) Lymph % (Auto) [place] % (Auto) Eos % (Auto) Baso % (Auto) Neut # (Auto) Lymph # (Auto) [place] # (Auto) Eos # (Auto) Baso # (Auto) Immature Gran # (Auto) Sodium Potassium Chloride Carbon Dioxide Anion Gap BUN Creatinine Est Cr Clr Drug Dosing Est GFR ( Amer) Est GFR (Non-Af Amer) POC Glucose 112 H 124 H Fasting Glucose Calcium Phosphorus Magnesium Total Bilirubin AST ALT Alkaline Phosphatase C-Reactive Protein Total Protein Albumin Globulin Albumin/Globulin Ratio Procalcitonin PG Care Time/CCT Total # of Minutes Spent Total Time Spent with Patient: Total time spent is greater than 50% in coordination of care (as documented) at patient's floor/unit and/or counseling patient: Coding Level of Care Code 06121 Subseq Hosp Care Lvl 2 Diagnoses Weakness R53.1 Gram-positive bacteremia R78.81 History of cancer chemotherapy Z92.21 Prolonged QT interval R94.31 Non-sustained ventricular tachycardia I47.2 Presence of single chamber implantable cardioverter-defibrillator (ICD) Z95.810 CAD (coronary atherosclerotic disease) I25.10 Diabetes mellitus E11.22; N18.3 Diabetes mellitus type: type 2 Diabetes mellitus terminal worker insulin use: without residential use Diabetes mellitus complication status: with kidney complications Diabetes mellitus complication detail: with chronic kidney disease Chronic kidney disease stage: stage 3 (moderate) Diarrhea R19.7 CKD (chronic kidney disease) N18.9 (1) Diabetes mellitus Diabetes mellitus type: type 2 Diabetes mellitus terminal worker insulin use: without residential use Diabetes mellitus complication status: with kidney complications Diabetes mellitus complication detail: with chronic kidney disease Chronic kidney disease stage: stage 3 (moderate) Qualified Code(s): E11.22 - Type 2 diabetes mellitus with diabetic chronic kidney disease; N18.3 - Chronic kidney disease, stage 3 (moderate)
[2022-04-22] MEDS: HEPARIN 100 UNIT/ML 5ML FLUSH FLUSH PRN (18:16)
[2022-04-22] MEDS: LANTUS PER UNIT CHARGE SQ SCH (21:03)
[2022-04-22] MEDS: ACETAMINOPHEN 325 MG TAB PO PRN (21:06)
[2022-04-22] MEDS: GABAPENTIN 100 MG CAP PO SCH (21:08)
[2022-04-22] MEDS: TAMSULOSIN HCL 0.4 MG CAP PO SCH (21:09)
[2022-04-23] MEDS: HEPARIN 100 UNIT/ML 5ML FLUSH FLUSH PRN (07:12)
[2022-04-23 07:26] LABS: Basophils # (auto) 0.03 K/uL (0-0.2); Basophils % (auto) 0.4 %; Eosinophils # (auto) 0.11 K/uL (0-0.50); Eosinophils % (auto) 1.4 %; Hemoglobin 10.4 g/dl (14.0-18.0); Immature Granulocytes # (auto) 0.08 K/uL (0.00-0.02); Lymphocytes # (auto) 1.45 K/uL (1.2-3.4); Lymphocytes % (auto) 17.8 %; Mean Corpuscular Hgb Conc 33.5 g/dL (32.0-36.0); Mean Corpuscular Volume 92.3 fL (80.0-100.0); Mean Platelet Volume 12.3 fL (9.4-12.4); Monocytes # (auto) 1.14 K/uL (0.24-0.82); Neutrophils # (auto) 5.32 K/uL (1.4-6.5); Neutrophils % (auto) 65.4 %; Platelet Count 144 K/uL (130-400); RDW Coefficient of Variation 19.1 % (11.5-14.5); RDW Standard Deviation 64.7 fL (36.4-46.3); Red Blood Count 3.36 M/uL (4.63-6.08); White Blood Count 8.13 K/ul (4.8-10.8)
[2022-04-23 07:57] LABS: Albumin Globulin Ratio 0.7 (0.9-2); Albumin Level 2.5 gm/dl (3.4-5.0); Bilirubin,Total 0.6 mg/dl (0.2-1.0); Calcium 8.3 mg/dl (8.5-10.1); Creatinine Clr Calc Pharmacy 47.9 ml/min; Est GFR (African American) 57.1 ml/min; Est GFR (Non-African American) 49.2 ml/min; Globulin 3.4 gm/dl (2.5-4.0); Phosphorus 1.8 mg/dl (2.5-4.9); Total Protein 5.9 gm/dl (6.0-8.3)
[2022-04-23] MEDS: INSULIN ASPART PER UNIT SC SCH ×4 (09:13→21:09)
[2022-04-23] MEDS: AMIODARONE 200 MG TAB PO SCH ×2 (09:15→18:03)
[2022-04-23] MEDS: carvediloL 12.5 MG TAB PO SCH ×2 (09:15→18:03)
[2022-04-23] MEDS: MAGNESIUM OXIDE 400 MG TAB PO SCH (09:16)
[2022-04-23] MEDS: ASPIRIN 81 MG ECTAB PO SCH (09:16)
[2022-04-23] MEDS: FIDAXOMICIN 200 MG TAB PO SCH ×2 (09:16→21:12)
[2022-04-23] MEDS: HEPARIN SOD 5,000 UNIT/0.5 ML VIAL SQ SCH ×2 (09:16→21:08)
[2022-04-23] MEDS: ACETAMINOPHEN 325 MG TAB PO PRN ×3 (09:16→19:35)
[2022-04-23] MEDS: CALCIUM CARBONATE 1,250 MG/5 ML UDC PO SCH ×2 (09:16→21:08)
[2022-04-23] MEDS ORDERED: VANCOMYCIN CONSULT ACTIVE PRN (10:06)
[2022-04-23] MEDS ORDERED: VANCOMYCIN HCL 1,500 MG in SODIUM CHLORIDE 0.9% 500 ML IV STA (10:23)
[2022-04-23] MEDS ORDERED: SODIUM CHLORIDE 0.9% 500 ML IV SCH (10:30)
[2022-04-23] MEDS ORDERED: SODIUM CHLORIDE 0.9% 1,000 ML IV SCH (10:56)
[2022-04-23] MEDS: SODIUM CHLORIDE 0.9% 1000ML 1,000 ML IV SCH (11:13)
--- NOTE | 2022-04-23 11:52 | Pharmacy Report ---
Pharmacy PK ABX Note - Date of Service April 23, 2022 - Assessment and Plan Assessment 81 year old M receiving vancomycin + metronidazole for treatment of parotid infection. Blood cultures 2/4 Coag negative staph- suspected contaminant. Recommendation to start unasyn and d/c flagyl as current therapy has no gram negative coverage- provider would like to continue vancomycin + metronidazole at this time. Plan Vancomycin * Loading dose: 1500 mg IV x 1 * Maintenance dose: 1000 mg IV every 18 hours * Regimen is predicted to achieve target AUC/MEEK of 400-600 mg/L.hr * Random to be ordered if vancomycin continued >8 hrs Pharmacy will continue to follow and will adjust dose/frequency as necessary. Thank you. Pharmacy has transitioned to AUC monitoring for vancomycin. AUC/MEEK is the preferred PK/PD target and is associated with decreased risk of nephrotoxicity compared to traditional trough targets.
[2022-04-23] MEDS ORDERED: SODIUM PHOSPHATE 3 MMOL/1 ML INFUSION IV STA (12:31)
[2022-04-23] MEDS ORDERED: SODIUM PHOSPHATE 30 MMOL in SODIUM CHLORIDE 0.9% 500 ML IV ONE (12:45)
[2022-04-23] MEDS ORDERED: metroNIDAZOLE 500 MG TAB PO SCH (14:00)
[2022-04-23] MEDS ORDERED: PIPERACILLIN/TAZOBACTAM 3.375 GM in DEXTROSE 5% 100 ML IV ONE (14:45)
--- NOTE | 2022-04-23 17:32 | Hospitalist Progress Note ---
Date of Service April 23, 2022 Assessment & Plan (1) Weakness: Plan: Possibly multifactorialnow probable mastoiditis detected, possible parotitis, positive C. difficile though may not necessarily be relapse, being treated as such Overall actually feels better Continue treating treatable factors, supportive care (2) Mastoiditis: Plan: Seen by ENT; however teri purulent drainage noted on pillow though nothing overt at present during rounds; discussed with Dr. Lynn-he thinks likely mastoiditis and recommended antibiotics; culture requested though at present not much drainage-Zosyn added given post chemo state; de-escalate depending on course; Requested Dr. Lynn to reevaluate (3) Parotitis: Plan: Also discussed pain and findings on CT scan near right hemimandible-he thinks parotitis which is invariably gram-positive; at risk of MRSA vancomycin initiated pending nasal MRSA; also hydration recommended; oral surgery draft no te noted with defect of tooth #31 and 32 (4) Gram-positive bacteremia: Plan: Appears contaminantCNS (5) History of cancer chemotherapy: Plan: Mixed germ cell testicular cancer diagnosed 11/14/2021 CT at diagnosis with aortocaval adenopathy Last seen by heme-onc 04/06/2022. At that time planning for 3-month follow-up with 3-month interval CT, per pt has had good response to chemo - 30lbs since chemo started Completed 4 cycles of cisplatin/etoposide on 02/18/2022 Finished chemo according to him; Oncology follow-up (6) Prolonged QT interval: Plan: Follow; maintain electrolytes (7) Non-sustained ventricular tachycardia: Plan: Stable on amiodaronecontinue; episode of V. tach with 1 appropriate ICD shock by historyat present does not seem urgent issue (8) Presence of single chamber implantable cardioverter-defibrillator (ICD): Plan: See above (9) CAD (coronary atherosclerotic disease): Plan: No angina, follow (10) Diabetes mellitus: Plan: Pharmacy glycemic consultsugars reasonable (11) Diarrhea: Plan: Unclear if recurrent C. difficile (only gene positive) but had diarrhea that has improved on treatment (12) CKD (chronic kidney disease): Plan: Appears underlying CKD, stage III based on current parameters, fluctuating but improvedfollow (13) Ascites: Plan: Clinically and see PET scan result -diagnostic, therapeutic paracentesis requested Plan Follow anemia Hypophosphatemiareplace Cognizant that antibiotics are being given C. difficile recent and current treatment! De-escalate/stop depending on course and ENT evaluation Admission and Anticipated Discharge Date Admission Date: April 19, 2022 Subjective Follow-up of primary presentation with weakness-overall feels better; diarrhea better; one of his symptom was nagging pain lower right side of face near the ear; this morning woke up with purulent drainage on his pillow from right ear Physical Exam Physical Exam: Constitutional and general: No acute distress, looks biologic age Head and face: No puffiness, atraumatic Eyes: No scleral icterus, extraocular movements normal Neck: Supple, no JVD Musculoskeletal: No acute joint swelling, no bony abnormalities Skin/dermatologic/integument: No rash, no purpura Hematologic and lymphatic: pallor +, no petechia Gastrointestinal/abdomen: distended, soft, nonacute Neurologic: Cranial nerves intact, nonfocal Psychiatry: Awake, alert, pleasant, communicative Cardiovascular: Heart rhythm regular, no rub, no murmur, no gallop Respiratory: Chest movements equal, no use of accessory muscles, no adventitious sounds Extremities: No edema, no cyanosis Results & Data Results & Data ([facility]) Vital Signs (Past 12 Hours) Vital Signs Temp Pulse Resp BP Pulse Ox O2 Del Method 04/23/22 15:19 36.2 C L 57 L 107/57 L 97 Room Air 04/23/22 09:15 63 120/78 04/23/22 07:10 Room Air 04/23/22 06:55 36.4 C L 67 16 120/72 97 Room Air Laboratory Results Laboratory Results - last 24 hr 04/22/22 04/23/22 04/23/22 20:35 07:05 07:05 WBC 8.13 RBC 3.36 L Hgb 10.4 L Hct 31.0 L MCV 92.3 MCH 31.0 MCHC 33.5 RDW Std Deviation 64.7 H RDW Coeff of David 19.1 H Plt Count 144 MPV 12.3 Immature Gran % (Auto) 1.0 Neut % (Auto) 65.4 Lymph % (Auto) 17.8 [place] % (Auto) 14.0 Eos % (Auto) 1.4 Baso % (Auto) 0.4 Neut # (Auto) 5.32 Lymph # (Auto) 1.45 [place] # (Auto) 1.14 H Eos # (Auto) 0.11 Baso # (Auto) 0.03 Immature Gran # (Auto) 0.08 H Sodium 133 L Potassium 4.0 Chloride 104 Carbon Dioxide 26 Anion Gap 3 BUN 16 Creatinine 1.35 Est Cr Clr Drug Dosing 47.9 Est GFR ( Amer) 57.1 Est GFR (Non-Af Amer) 49.2 POC Glucose 142 H Fasting Glucose 97 Calcium 8.3 L Phosphorus 1.8 L Magnesium 2.0 Total Bilirubin 0.6 AST 21 ALT 12 Alkaline Phosphatase 84 Total Protein 5.9 L Albumin 2.5 L Globulin 3.4 Albumin/Globulin Ratio 0.7 L Procalcitonin 04/23/22 04/23/22 04/23/22 07:05 08:13 12:37 WBC RBC Hgb Hct MCV MCH MCHC RDW Std Deviation RDW Coeff of David Plt Count MPV Immature Gran % (Auto) Neut % (Auto) Lymph % (Auto) [place] % (Auto) Eos % (Auto) Baso % (Auto) Neut # (Auto) Lymph # (Auto) [place] # (Auto) Eos # (Auto) Baso # (Auto) Immature Gran # (Auto) Sodium Potassium Chloride Carbon Dioxide Anion Gap BUN Creatinine Est Cr Clr Drug Dosing Est GFR ( Amer) Est GFR (Non-Af Amer) POC Glucose 93 87 Fasting Glucose Calcium Phosphorus Magnesium Total Bilirubin AST ALT Alkaline Phosphatase Total Protein Albumin Globulin Albumin/Globulin Ratio Procalcitonin 0.17 04/23/22 16:58 WBC RBC Hgb Hct MCV MCH MCHC RDW Std Deviation RDW Coeff of David Plt Count MPV Immature Gran % (Auto) Neut % (Auto) Lymph % (Auto) [place] % (Auto) Eos % (Auto) Baso % (Auto) Neut # (Auto) Lymph # (Auto) [place] # (Auto) Eos # (Auto) Baso # (Auto) Immature Gran # (Auto) Sodium Potassium Chloride Carbon Dioxide Anion Gap BUN Creatinine Est Cr Clr Drug Dosing Est GFR ( Amer) Est GFR (Non-Af Amer) POC Glucose 125 H Fasting Glucose Calcium Phosphorus Magnesium Total Bilirubin AST ALT Alkaline Phosphatase Total Protein Albumin Globulin Albumin/Globulin Ratio Procalcitonin PG Care Time/CCT Total # of Minutes Spent Total Time Spent with Patient: Total time spent is greater than 50% in coordination of care (as documented) at patient's floor/unit and/or counseling patient: Coding Level of Care Code 67272 Subseq Hosp Care Lvl 2 Diagnoses Weakness R53.1 Mastoiditis H70.90 Parotitis K11.20 Gram-positive bacteremia R78.81 History of cancer chemotherapy Z92.21 Prolonged QT interval R94.31 Non-sustained ventricular tachycardia I47.2 Presence of single chamber implantable cardioverter-defibrillator (ICD) Z95.810 CAD (coronary atherosclerotic disease) I25.10 Diabetes mellitus E11.22; N18.3 Diabetes mellitus type: type 2 Diabetes mellitus residential insulin use: without rodent exterminator use Diabetes mellitus complication status: with kidney complications Diabetes mellitus complication detail: with chronic kidney disease Chronic kidney disease stage: stage 3 (moderate) Diarrhea R19.7 CKD (chronic kidney disease) N18.9 Ascites R18.8 (1) Diabetes mellitus Diabetes mellitus type: type 2 Diabetes mellitus rodent exterminator insulin use: without residential use Diabetes mellitus complication status: with kidney complications Diabetes mellitus complication detail: with chronic kidney disease Chronic kidney disease stage: stage 3 (moderate) Qualified Code(s): E11.22 - Type 2 diabetes mellitus with diabetic chronic kidney disease; N18.3 - Chronic kidney disease, stage 3 (moderate)
[2022-04-23] MEDS: PIPERACILLIN/TAZOBACTAM 3.375 GM in DEXTROSE 5% 100 ML IV SCH (19:36)
[2022-04-23] MEDS: GABAPENTIN 100 MG CAP PO SCH (21:08)
[2022-04-23] MEDS: TAMSULOSIN HCL 0.4 MG CAP PO SCH (21:08)
[2022-04-24] MEDS: PIPERACILLIN/TAZOBACTAM 3.375 GM in DEXTROSE 5% 100 ML IV SCH ×3 (03:20→20:39)
[2022-04-24] MEDS: SODIUM CHLORIDE 0.9% 1000ML 1,000 ML IV SCH (04:23)
[2022-04-24] MEDS ORDERED: VANCOMYCIN HCL 1,000 MG in SODIUM CHLORIDE 0.9% 250 ML IV SCH (06:00)
[2022-04-24 08:01] LABS: Basophils # (auto) 0.02 K/uL (0-0.2); Basophils % (auto) 0.3 %; Eosinophils % (auto) 1.6 %; Hematocrit (blood only) 30.3 % (40.1-51.0); Hemoglobin 9.9 g/dl (14.0-18.0); Immature Granulocytes # (auto) 0.08 K/uL (0.00-0.02); Immature Granulocytes % (auto) 1.2 %; Lymphocytes % (auto) 17.1 %; Mean Corpuscular Hgb Conc 32.7 g/dL (32.0-36.0); Mean Platelet Volume 12.9 fL (9.4-12.4); Monocytes # (auto) 0.96 K/uL (0.24-0.82); Monocytes % (auto) 14.9 %; Neutrophils # (auto) 4.18 K/uL (1.4-6.5); Neutrophils % (auto) 64.9 %; Platelet Count 115 K/uL (130-400); RDW Standard Deviation 66.3 fL (36.4-46.3); Red Blood Count 3.19 M/uL (4.63-6.08); White Blood Count 6.44 K/ul (4.8-10.8)
[2022-04-24 08:12] LABS: INR 1.1 (0.9-1.1); Prothrombin Time 11.5 Seconds (9.0-12.0)
[2022-04-24 08:22] LABS: Calcium 7.8 mg/dl (8.5-10.1); Creatinine Clr Calc Pharmacy 50.1 ml/min; Est GFR (African American) 60.3 ml/min; Potassium 3.7 mmol/L (3.5-5.1)
--- NOTE | 2022-04-24 08:42 | Hospitalist Progress Note ---
Date of Service April 24, 2022 Assessment & Plan (1) Weakness: Plan: Multifactorial now probable mastoiditis detected, possible parotitis - positive C. difficile though may not necessarily be relapse, being treated as such with Vanco PO Patient reported 04/24 feeling much better, no further diarrhea, improvement in generalized weakness. Tx w/ Vanco/Zosyn for mastoiditis/parotiditis (CT w/ is asymmetric soft tissue thickening surrounding the angle and ramus of the right hemimandible primarily involving the alliance manager muscles at this location) Nasal swab negative for MRSA and de-escalated to Zosyn for now but could consider Unasyn Dr Zuniga eval AM 04/24, pus from removable denture/implant to R mandible, tooth #29 which is implant. He called patient regular dentist and this is acute on chronic issue and will need close f/u dentist at discharge and continue PO abx possibly with Augmentin and also mouth rinse. Dr Zuniga to update patient on plan/coordinate with usual dentist. PT/OT consulted -- home with home health PT (2) Mastoiditis: Plan: Seen by ENT; however teri purulent drainage noted on pillow though nothing overt at present during rounds; discussed with Dr. Lynn previously who thought likely mastoidisit and recommended abx Cx requested-- monitor De-escalated to Zosyn for now given post-chemo state, possible PO in AM if dc (3) Parotitis: Plan: Also discussed pain and findings on CT scan near right hemimandible-he thinks parotitis which is invariably gram-positive; at risk of MRSA vancomycin initiated but d/c given negative nasal swab Oral surgery consulted as above (4) Gram-positive bacteremia: Plan: Appears contaminantCNS (5) History of cancer chemotherapy: Plan: Mixed germ cell testicular cancer diagnosed 11/14/2021 CT at diagnosis with aortocaval adenopathy Last seen by heme-onc 04/06/2022. At that time planning for 3-month follow-up with 3-month interval CT, per pt has had good response to chemo - 30lbs since chemo started Completed 4 cycles of cisplatin/etoposide on 02/18/2022 Finished chemo according to patient. Discussed with Perlita Maciel and patient with stable scans and on surveillanc e currently. Routine f/u outpatient with heme/oncology (6) Prolonged QT interval: Plan: Follow; maintain electrolytes (7) Non-sustained ventricular tachycardia: Plan: Stable on amiodaronecontinue; episode of V. tach with 1 appropriate ICD shock by historyat present does not seem urgent issue (8) Presence of single chamber implantable cardioverter-defibrillator (ICD): Plan: See above (9) CAD (coronary atherosclerotic disease): Plan: No angina, follow (10) Diabetes mellitus: Plan: Pharmacy glycemic consultsugars reasonable (11) Diarrhea: Plan: Unclear if recurrent C. difficile (only gene positive) but had diarrhea that has improved on treatment and will continue with such (12) CKD (chronic kidney disease): Plan: Appears underlying CKD, stage III based on current parameters, fluctuating but improvedfollow (13) Ascites: Plan: Orders for paracentesis placed. Afebrile, no abdominal pain, does have some distention but nothing compared to in past reported by patient (PET scan March 29 with mod-marked abdominal and pelvic ascites) Cancelled paracentesis order, can f/u outpatient if any ongoing issues but would avoid to prevent introduction of additional infection when not currently causing patient issues Plan continued inpatient stay, possible d/c tomorrow on PO abx (also PO vanco for +cdiff) [facility] Admission and Anticipated Discharge Date Admission Date: April 19, 2022 Supervising Physician Co-Signing Physician Notes Attending Attestation - Chart reviewed in detail, care plan d/w KASHIF Jones. I agree w/ the lawrence components of her documentation. Plan of care also d/w Dr Smooth Zuniga. Bola Marsh MD Subjective patient evaluated around lunch doing well, diarrhea slowed and he reports this is resolved. pain manageable but states has been taking tylenol/tramadol but doesn't seem to be taking the edge off discomfort to the R jaw/mandible. Discussed opiates, he states he has tolerated in past without issue other than sometimes how they make him feel. Discussed trial 5mg to get over hump then as needed with baseline level of control discussed paracentesis, patient not having abd pain. did have distension for years, after 3rd cycle did get sent to ER and sounds like possible need for paracentesis. Follows with Perlita Maciel. Will cancel the paracentesis for now. No fever/chills, chest pain, shortness of breath, nausea/vomiting, dysuria at this time. Strength improving and hopeful for possible d/c in next 24-48 hours. Review of Systems Review of Systems: All systems reviewed & are unremarkable except as noted in HPI & below Physical Exam Physical Exam: General: WD frail elderly male sitting up in bed, NAD HEENT: head normocephalic atraumatic, pupils equal and reactive, mmm, trachea midline poor dentition, back molars with caps, R lower mandible tender to palpation, no purulent drainage able to be expressed currently (just done so with Dr Zuniga leaving room moments prior), no terell step off Resp: CTAB, no w/c, on room air CV: RRR, no m/r/g, no edema or calf tenderness GI: +BS, soft nontender no lovelace Msk/neuro: moves all extremities, no focal deficits Skin: cool, dry Results & Data Results & Data ([facility]) Vital Signs (Past 12 Hours) Vital Signs Temp Pulse Resp BP Pulse Ox O2 Del Method 04/24/22 07:13 36.4 C L 82 12 93/59 L 99 Room Air Laboratory Results 04/24/22 04/24/22 04/24/22 Range/Units 11:49 08:09 07:47 WBC (4.8-10.8) K/ul RBC (4.63-6.08) M/uL Hgb (14.0-18.0) g/dl Hct (40.1-51.0) % MCV (80.0-100.0) fL MCH (25.0-34.0) pg MCHC (32.0-36.0) g/dL RDW Std Deviation (36.4-46.3) fL RDW Coeff of David (11.5-14.5) % Plt Count (130-400) K/uL MPV (9.4-12.4) fL Immature Gran % (Auto) % Neut % (Auto) % Lymph % (Auto) % Barber % (Auto) % Eos % (Auto) % Baso % (Auto) % Neut # (Auto) (1.4-6.5) K/uL Lymph # (Auto) (1.2-3.4) K/uL Barber # (Auto) (0.24-0.82) K/uL Eos # (Auto) (0-0.50) K/uL Baso # (Auto) (0-0.2) K/uL Immature Gran # (Auto) (0.00-0.02) K/uL PT 11.5 (9.0-12.0) Seconds INR 1.1 (0.9-1.1) Sodium (136-145) mmol/L Potassium (3.5-5.1) mmol/L Chloride (98-107) mmol/L Carbon Dioxide (21-32) mmol/L Anion Gap (3-11) BUN (6-23) mg/dl Creatinine (0.6-1.4) mg/dl Est Cr Clr Drug Dosing ml/min Est GFR ( Amer) ml/min Est GFR (Non-Af Amer) ml/min POC Glucose 171 H 121 H (70-99) mg/dl Fasting Glucose (70-99) mg/dl Calcium (8.5-10.1) mg/dl Phosphorus (2.5-4.9) mg/dl Magnesium (1.7-2.4) mg/dl Total Bilirubin (0.2-1.0) mg/dl AST (13-39) U/L ALT (7-52) U/L Alkaline Phosphatase (34-104) U/L Total Protein (6.0-8.3) gm/dl Albumin (3.4-5.0) gm/dl Globulin (2.5-4.0) gm/dl Albumin/Globulin Ratio (0.9-2) Nasal Screen MRSA (PCR) (Negative) 04/24/22 04/24/22 04/23/22 Range/Units 07:47 07:47 20:30 WBC 6.44 (4.8-10.8) K/ul RBC 3.19 L (4.63-6.08) M/uL Hgb 9.9 L (14.0-18.0) g/dl Hct 30.3 L (40.1-51.0) % MCV 95.0 (80.0-100.0) fL MCH 31.0 (25.0-34.0) pg MCHC 32.7 (32.0-36.0) g/dL RDW Std Deviation 66.3 H (36.4-46.3) fL RDW Coeff of David 19.0 H (11.5-14.5) % Plt Count 115 L (130-400) K/uL MPV 12.9 H (9.4-12.4) fL Immature Gran % (Auto) 1.2 % Neut % (Auto) 64.9 % Lymph % (Auto) 17.1 % Barber % (Auto) 14.9 % Eos % (Auto) 1.6 % Baso % (Auto) 0.3 % Neut # (Auto) 4.18 (1.4-6.5) K/uL Lymph # (Auto) 1.10 L (1.2-3.4) K/uL Barber # (Auto) 0.96 H (0.24-0.82) K/uL Eos # (Auto) 0.10 (0-0.50) K/uL Baso # (Auto) 0.02 (0-0.2) K/uL Immature Gran # (Auto) 0.08 H (0.00-0.02) K/uL PT (9.0-12.0) Seconds INR (0.9-1.1) Sodium 135 L (136-145) mmol/L Potassium 3.7 (3.5-5.1) mmol/L Chloride 105 (98-107) mmol/L Carbon Dioxide 25 (21-32) mmol/L Anion Gap 5 (3-11) BUN 15 (6-23) mg/dl Creatinine 1.29 (0.6-1.4) mg/dl Est Cr Clr Drug Dosing 50.1 ml/min Est GFR ( Amer) 60.3 ml/min Est GFR (Non-Af Amer) 52.0 ml/min POC Glucose 114 H (70-99) mg/dl Fasting Glucose 139 H (70-99) mg/dl Calcium 7.8 L (8.5-10.1) mg/dl Phosphorus 2.9 D (2.5-4.9) mg/dl Magnesium 1.7 (1.7-2.4) mg/dl Total Bilirubin 0.5 (0.2-1.0) mg/dl AST 21 (13-39) U/L ALT 12 (7-52) U/L Alkaline Phosphatase 79 (34-104) U/L Total Protein 5.8 L (6.0-8.3) gm/dl Albumin 2.4 L (3.4-5.0) gm/dl Globulin 3.4 (2.5-4.0) gm/dl Albumin/Globulin Ratio 0.7 L (0.9-2) Nasal Screen MRSA (PCR) (Negative) 04/23/22 04/23/22 Range/Units 18:00 16:58 WBC (4.8-10.8) K/ul RBC (4.63-6.08) M/uL Hgb (14.0-18.0) g/dl Hct (40.1-51.0) % MCV (80.0-100.0) fL MCH (25.0-34.0) pg MCHC (32.0-36.0) g/dL RDW Std Deviation (36.4-46.3) fL RDW Coeff of David (11.5-14.5) % Plt Count (130-400) K/uL MPV (9.4-12.4) fL Immature Gran % (Auto) % Neut % (Auto) % Lymph % (Auto) % Barber % (Auto) % Eos % (Auto) % Baso % (Auto) % Neut # (Auto) (1.4-6.5) K/uL Lymph # (Auto) (1.2-3.4) K/uL Barber # (Auto) (0.24-0.82) K/uL Eos # (Auto) (0-0.50) K/uL Baso # (Auto) (0-0.2) K/uL Immature Gran # (Auto) (0.00-0.02) K/uL PT (9.0-12.0) Seconds INR (0.9-1.1) Sodium (136-145) mmol/L Potassium (3.5-5.1) mmol/L Chloride (98-107) mmol/L Carbon Dioxide (21-32) mmol/L Anion Gap (3-11) BUN (6-23) mg/dl Creatinine (0.6-1.4) mg/dl Est Cr Clr Drug Dosing ml/min Est GFR ( Amer) ml/min Est GFR (Non-Af Amer) ml/min POC Glucose 125 H (70-99) mg/dl Fasting Glucose (70-99) mg/dl Calcium (8.5-10.1) mg/dl Phosphorus (2.5-4.9) mg/dl Magnesium (1.7-2.4) mg/dl Total Bilirubin (0.2-1.0) mg/dl AST (13-39) U/L ALT (7-52) U/L Alkaline Phosphatase (34-104) U/L Total Protein (6.0-8.3) gm/dl Albumin (3.4-5.0) gm/dl Globulin (2.5-4.0) gm/dl Albumin/Globulin Ratio (0.9-2) Nasal Screen MRSA (PCR) Negative (Negative) PG Care Time/CCT Total # of Minutes Spent Total Time Spent with Patient: Total time spent is greater than 50% in coordination of care (as documented) at patient's floor/unit and/or counseling patient: Coding Level of Care Code 49122 Subseq Hosp Care Lvl 3 Diagnoses Weakness R53.1 Mastoiditis H70.90 Parotitis K11.20 Gram-positive bacteremia R78.81 History of cancer chemotherapy Z92.21 Prolonged QT interval R94.31 Non-sustained ventricular tachycardia I47.2 Presence of single chamber implantable cardioverter-defibrillator (ICD) Z95.810 CAD (coronary atherosclerotic disease) I25.10 Diabetes mellitus E11.22; N18.3 Chronic kidney disease stage: stage 3 (moderate) Diabetes mellitus complication detail: with chronic kidney disease Diabetes mellitus complication status: with kidney complications Diabetes mellitus intermediate manager insulin use: without chcf use Diabetes mellitus type: type 2 Diarrhea R19.7 CKD (chronic kidney disease) N18.9 Ascites R18.8 (1) Diabetes mellitus Chronic kidney disease stage: stage 3 (moderate) Diabetes mellitus complication detail: with chronic kidney disease Diabetes mellitus complication status: with kidney complications Diabetes mellitus intermediate manager insulin use: without intermediate manager use Diabetes mellitus type: type 2 Qualified Code(s): E11.22 - Type 2 diabetes mellitus with diabetic chronic kidney disease; N18.3 - Chronic kidney disease, stage 3 (moderate)
[2022-04-24] MEDS: carvediloL 12.5 MG TAB PO SCH ×3 (08:57→17:44)
[2022-04-24 08:58] LABS: Albumin Globulin Ratio 0.7 (0.9-2); Albumin Level 2.4 gm/dl (3.4-5.0); Bilirubin,Total 0.5 mg/dl (0.2-1.0); Globulin 3.4 gm/dl (2.5-4.0); Magnesium 1.7 mg/dl (1.7-2.4); Phosphorus 2.9 mg/dl (2.5-4.9); Total Protein 5.8 gm/dl (6.0-8.3)
[2022-04-24] MEDS: INSULIN ASPART PER UNIT SC SCH ×4 (09:04→20:41)
[2022-04-24] MEDS: FIDAXOMICIN 200 MG TAB PO SCH ×2 (09:05→20:39)
[2022-04-24] MEDS: ASPIRIN 81 MG ECTAB PO SCH (09:06)
[2022-04-24] MEDS: AMIODARONE 200 MG TAB PO SCH ×2 (09:06→17:44)
[2022-04-24] MEDS: MAGNESIUM OXIDE 400 MG TAB PO SCH (09:07)
[2022-04-24] MEDS: HEPARIN SOD 5,000 UNIT/0.5 ML VIAL SQ SCH ×2 (09:07→20:41)
[2022-04-24] MEDS: CALCIUM CARBONATE 1,250 MG/5 ML UDC PO SCH ×2 (09:07→20:39)
[2022-04-24] MEDS: ACETAMINOPHEN 325 MG TAB PO PRN (11:39)
[2022-04-24] MEDS ORDERED: oxyCODONE HCL IR 5 MG TAB (IMMEDIATE RELEASE) PO PRN (12:33)
--- NOTE | 2022-04-24 12:45 | Ears,Nose,Throat Progress Note ---
Date of Service April 24, 2022 Assessment & Plan (1) Parotitis: Plan: Examination today showed no swelling that is appreciable by me. No sign of parotitis. (2) Mastoiditis: Plan: He did have slight drainage on the pillow this weekend. T-tube in place with no sign of drainage today. May have just been wax. Admission and Anticipated Discharge Date Admission Date: April 19, 2022 Subjective This 81-year-old gentleman admitted for weakness. Previous mastoidectomy by me for chronic drainage. He had on Sunday 1 episode of slight drainage from the right ear. No further drainage today. No pain or pressure in the ear. However he does notice some pain in front of the right mandible. CT of facial some soft tissue swelling but no masses. Physical Exam Constitutional: WD/WN, vitals as above Eyes: PERRL, conjunctivae normal, anicteric sclerae ENMT: external ear and nose normal, oropharynx normal Ears: + TM abnormality (T-tube in place in right ear, no drainage noted today.) Mouth: + salivary duct abnormality (No sign of parotitis) and + TMJ tender (Some tenderness in front of the mandible. No masses) Neck: No palpable masses Results & Data ([facility]) Vital Signs (Past 12 Hours) Vital Signs Temp Pulse Resp BP Pulse Ox O2 Del Method 04/24/22 07:20 Room Air 04/24/22 09:00 64 123/69 04/24/22 07:13 36.4 C L 82 12 93/59 L 99 Room Air Diagnostic Findings CT of face reviewed. I do not see any masses. Cannot see the reason for the swelling.
[2022-04-24] MEDS: HEPARIN 100 UNIT/ML 5ML FLUSH FLUSH PRN (15:41)
[2022-04-24] MEDS: TAMSULOSIN HCL 0.4 MG CAP PO SCH (20:39)
[2022-04-24] MEDS: GABAPENTIN 100 MG CAP PO SCH (20:39)
[2022-04-25] MEDS: PIPERACILLIN/TAZOBACTAM 3.375 GM in DEXTROSE 5% 100 ML IV SCH ×2 (04:53→12:01)
[2022-04-25] MEDS: ACETAMINOPHEN 325 MG TAB PO PRN (06:12)
[2022-04-25 06:45] LABS: Basophils # (auto) 0.02 K/uL (0-0.2); Basophils % (auto) 0.4 %; Eosinophils # (auto) 0.09 K/uL (0-0.50); Eosinophils % (auto) 1.6 %; Hematocrit (blood only) 29.6 % (40.1-51.0); Hemoglobin 9.6 g/dl (14.0-18.0); Immature Granulocytes # (auto) 0.05 K/uL (0.00-0.02); Immature Granulocytes % (auto) 0.9 %; Lymphocytes # (auto) 0.99 K/uL (1.2-3.4); Lymphocytes % (auto) 17.7 %; Mean Corpuscular Hemoglobin 31.3 pg (25.0-34.0); Mean Corpuscular Hgb Conc 32.4 g/dL (32.0-36.0); Mean Corpuscular Volume 96.4 fL (80.0-100.0); Mean Platelet Volume 12.5 fL (9.4-12.4); Monocytes # (auto) 0.83 K/uL (0.24-0.82); Monocytes % (auto) 14.9 %; Neutrophils % (auto) 64.5 %; Platelet Count 101 K/uL (130-400); RDW Coefficient of Variation 19.2 % (11.5-14.5); RDW Standard Deviation 67.8 fL (36.4-46.3); Red Blood Count 3.07 M/uL (4.63-6.08); White Blood Count 5.58 K/ul (4.8-10.8)
[2022-04-25 07:13] LABS: Albumin Globulin Ratio 0.7 (0.9-2); Albumin Level 2.3 gm/dl (3.4-5.0); BUN Creatinine Ratio 10.6 (10-20); Bilirubin,Total 0.5 mg/dl (0.2-1.0); Calcium 7.8 mg/dl (8.5-10.1); Creatinine Clr Calc Pharmacy 45.5 ml/min; Est GFR (African American) 53.7 ml/min; Est GFR (Non-African American) 46.3 ml/min; Globulin 3.3 gm/dl (2.5-4.0); Magnesium 1.6 mg/dl (1.7-2.4); Phosphorus 2.5 mg/dl (2.5-4.9); Potassium 3.8 mmol/L (3.5-5.1); Total Protein 5.6 gm/dl (6.0-8.3)
--- NOTE | 2022-04-25 08:11 | Hospitalist Progress Note ---
Date of Service April 25, 2022 Assessment & Plan (1) Weakness: Plan: Multifactorial now probable mastoiditis detected, possible parotitis - positive C. difficile though may not necessarily be relapse, being treated as such with Vanco PO Patient reported 04/24 feeling much better, no further diarrhea, improvement in generalized weakness. Tx w/ Vanco/Zosyn for mastoiditis/parotiditis (CT w/ is asymmetric soft tissue thickening surrounding the angle and ramus of the right hemimandible primarily involving the equine vet muscles at this location) Nasal swab negative for MRSA and de-escalated to Zosyn for now but could consider Unasyn Dr Zuniga eval AM 04/24, pus from removable denture/implant to R mandible, tooth #29 which is implant. He called patient regular dentist and this is acute on chronic issue and will need close f/u dentist at discharge and continue PO abx possibly with Augmentin and also mouth rinse. Dr Zuniga to update patient on plan/coordinate with usual dentist. PT/OT consulted -- home with home health PT (2) Mastoiditis: Plan: Seen by ENT; however teri purulent drainage noted on pillow though nothing overt at present during rounds; discussed with Dr. Lynn previously who thought likely mastoidisit and recommended abx Cx requested-- monitor De-escalated to Zosyn for now given post-chemo state, possible PO in AM if dc (3) Parotitis: Plan: Also discussed pain and findings on CT scan near right hemimandible-he thinks parotitis which is invariably gram-positive; at risk of MRSA vancomycin initiated but d/c given negative nasal swab Oral surgery consulted as above (4) Gram-positive bacteremia: Plan: Appears contaminantCNS (5) History of cancer chemotherapy: Plan: Mixed germ cell testicular cancer diagnosed 11/14/2021 CT at diagnosis with aortocaval adenopathy Last seen by heme-onc 04/06/2022. At that time planning for 3-month follow-up with 3-month interval CT, per pt has had good response to chemo - 30lbs since chemo started Completed 4 cycles of cisplatin/etoposide on 02/18/2022 Finished chemo according to patient. Discussed with Perlita Maciel and patient with stable scans and on surveillanc e currently. Routine f/u outpatient with heme/oncology (6) Prolonged QT interval: Plan: Follow; maintain electrolytes (7) Non-sustained ventricular tachycardia: Plan: Stable on amiodaronecontinue; episode of V. tach with 1 appropriate ICD shock by historyat present does not seem urgent issue (8) Presence of single chamber implantable cardioverter-defibrillator (ICD): Plan: See above (9) CAD (coronary atherosclerotic disease): Plan: No angina, follow (10) Diabetes mellitus: Plan: Pharmacy glycemic consultsugars reasonable (11) Diarrhea: Plan: Unclear if recurrent C. difficile (only gene positive) but had diarrhea that has improved on treatment and will continue with such (12) CKD (chronic kidney disease): Plan: Appears underlying CKD, stage III based on current parameters, fluctuating but improvedfollow (13) Ascites: Plan: Orders for paracentesis placed. Afebrile, no abdominal pain, does have some distention but nothing compared to in past reported by patient (PET scan March 29 with mod-marked abdominal and pelvic ascites) Cancelled paracentesis order, can f/u outpatient if any ongoing issues but would avoid to prevent introduction of additional infection when not currently causing patient issues Plan continued inpatient stay, possible d/c tomorrow on PO abx (also PO vanco for +cdiff) and close f/u dentist at [facility] [place] Admission and Anticipated Discharge Date Admission Date: April 19, 2022 Results & Data Results & Data ([facility]) Vital Signs (Past 12 Hours) Vital Signs Temp Pulse Resp BP Pulse Ox O2 Del Method 04/25/22 08:07 36.4 C L 61 14 125/77 97 Room Air 04/24/22 20:42 36.8 C 59 L 18 117/64 95 Room Air PG Care Time/CCT Total # of Minutes Spent Total Time Spent with Patient: Total time spent is greater than 50% in coordination of care (as documented) at patient's floor/unit and/or counseling patient: Coding Diagnoses Weakness R53.1 Mastoiditis H70.90 Parotitis K11.20 Gram-positive bacteremia R78.81 History of cancer chemotherapy Z92.21 Prolonged QT interval R94.31 Non-sustained ventricular tachycardia I47.2 Presence of single chamber implantable cardioverter-defibrillator (ICD) Z95.810 CAD (coronary atherosclerotic disease) I25.10 Diabetes mellitus E11.22; N18.3 Chronic kidney disease stage: stage 3 (moderate) Diabetes mellitus complication detail: with chronic kidney disease Diabetes mellitus complication status: with kidney complications Diabetes mellitus alf insulin use: without alf use Diabetes mellitus type: type 2 Diarrhea R19.7 CKD (chronic kidney disease) N18.9 Ascites R18.8 (1) Diabetes mellitus Chronic kidney disease stage: stage 3 (moderate) Diabetes mellitus complication detail: with chronic kidney disease Diabetes mellitus complication status: with kidney complications 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: without termite control representative use Diabetes mellitus type: type 2 Qualified Code(s): E11.22 - Type 2 diabetes mellitus with diabetic chronic kidney disease; N18.3 - Chronic kidney disease, stage 3 (moderate)
[2022-04-25] MEDS: carvediloL 12.5 MG TAB PO SCH ×2 (09:15→16:02)
[2022-04-25] MEDS: ASPIRIN 81 MG ECTAB PO SCH (09:15)
[2022-04-25] MEDS: MAGNESIUM OXIDE 400 MG TAB PO SCH (09:15)
[2022-04-25] MEDS: CALCIUM CARBONATE 1,250 MG/5 ML UDC PO SCH (09:16)
[2022-04-25] MEDS: AMIODARONE 200 MG TAB PO SCH ×2 (09:16→18:12)
[2022-04-25] MEDS: HEPARIN SOD 5,000 UNIT/0.5 ML VIAL SQ SCH (09:16)
[2022-04-25] MEDS: INSULIN ASPART PER UNIT SC SCH ×3 (09:29→17:53)
[2022-04-25] MEDS: MAGNESIUM SULFATE / D5W 1 GM/100 ML BAG IV SCH ×2 (09:29→12:01)
[2022-04-25] MEDS: FIDAXOMICIN 200 MG TAB PO SCH ×2 (09:29→18:38)
[2022-04-25] MEDS ORDERED: CHLORHEXIDINE GLUCONATE 0.12% 480 ML MT SCH (12:15)
--- NOTE | 2022-04-25 14:21 | Discharge Summary ---
Date of Service April 25, 2022 Admission HPI Per Admitting Provider Tony Carroll is an 81-year-old male with a past medical history of CKD 3, CAD with pacemaker/ICD, atrial flutter, chronic mastoiditis, germ cell cancer with mets, history of subarachnoid hemorrhage, pancytopenia 2/2 chemo, QT P, DM who presents with several days of worsening weakness and fatigue and unsteadiness on his feet. He has not had chest pain or chest pressure. Has been undergoing chemotherapy with last treatment 3 weeks ago, and has decreased p.o. intake in the setting of recent diagnosis of TMJ. He presents for generalized weakness. Seen at bedside with family Finished 4th round of chemo 3 weeks ago for testicular cancer. 'Been going downhill since.' Weaker, not drinking/eating much, increased fatigue. No fevers/chills/sweats. Some cranberry juice today and yesterday, but minimal appetite. Talked to Dr. Kohler and was recommended to come in for evaluation. Pt denies trouble swallowing, just reports he has no appetite once he sees food. Has tried milkshakes, ensure but just has very little desire to eat. No vomiting. +Diarrhea, +nausea daily. Diarrhea for several weeks, even prior to chemo. Was treated for C diff and improved slightly then leveled off and stopped improving. Remains near c ompletely liquid. BMs 1-3 times per day/ Medical History: Reviewed Medications: Reviewed Surgical History: Reviewed Allergies: Reviewed Social History: No tobacco in 40 years. No alcohol use. Code Status: Surrogate HELLEN Bonilla @ [phone]. DNR/DNI Admission Exam Per Admitting Provider General: A&Ox3. Appears fatigued, chronically ill HEENT: Atraumatic, normocephalic. Pupils equal and reactive to light. Vision and hearing intact. Pulm: Diminished but CTAB A&P. -wheezes, -rales, -rhonchi. Symmetrical chest rise. No increase in work of breathing. No respiratory distress. Cardiac: RRR, -mrg. Radial pulses intact and symmetrical. Abdominal: Nontender, nondistended, soft. BS present. Extremities: Warm, dry. Moves all extremities equally Principal Diagnosis Dental Infection Discharge Exam General: WD frail elderly male sitting up in bed, NAD HEENT: head normocephalic atraumatic, pupils equal and reactive, mmm, trachea midline poor dentition, back molars with caps, R front lower mandible tender to palpation, no purulent drainage able to be expressed currently, no terell step off, Ttube in place RIGHT ear Resp: CTAB, no w/c, on room air CV: RRR, no m/r/g, no edema or calf tenderness GI: +BS, +ascites, soft, nontender no lovelace Msk/neuro: moves all extremities, no focal deficits Skin: cool, dry Discharge Data Allergies Allergy/AdvReac Type Severity Reaction Status Date / Time No Known Drug Allergies Allergy nkda Verified 04/19/22 17:31 Consultations 04/19/22 16:03 ED Decision to Admit Stat 04/20/22 08:45 Consult General Surgery Routine 04/21/22 18:37 Consult Oromaxillofacial Surgery Routine Ordered Studies Chest X-Ray 04/19/22 14:15 XR chest 1V portable HISTORY: weakness COMPARISON: Chest 01/13/2022. FINDINGS: No pneumothorax. No pleural effusions. The heart is normal in size. There are poststernotomy changes and left-sided pacemaker/diffuse bladder. Right subclavian Port-A-Cath terminates at the proximal SVC. There are old, healed left-sided rib fractures. Slight focal pleural calcifications are again noted. No new focal lung consolidations to suggest pneumonia. No evidence for pulmonary edema. IMPRESSION: No acute process within the chest. Additional findings as described above. ACT 112: Negative or not required by law. Electronically signed by: Jhoan Alvarez M.D. 04/19/2022 4:[address] 04/19/22 14:15 CT head/brain wo con CLINICAL HISTORY: 81 years-old Male with weakness. Acute weakness TECHNIQUE: Multiple axial CT images of the head were obtained without contrast. A dose lowering technique was utilized adhering to the principles of ALARA. CT DOSE: 537.48 mGy.cm COMPARISON: 10/25/2019 exam. FINDINGS: No acute intracranial hemorrhage, midline shift, intra-axial mass, hydrocephalus, territorial ischemia or abnormal extra-axial collection. 1.1 severe hyperdense focus is noted within the region of the foramen of Monro on image 15 suggestive of probable choroid plexus. Cerebral vascular calcifications. Age-related involutional changes. Mild white matter hypodensities suggest chronic microvascular ischemic disease. Calcifications of the falx cerebri. The calvarium is intact. Large right mastoid effusion. Left mastoid air cells are clear. The paranasal sinuses are also clear. Unremarkable soft tissues. Prior bilateral lens repair. IMPRESSION: 1. No acute intracranial abnormality. 2. Large right mastoid effusion. ACT 112: Negative or not required by law. The above report was generated using voice recognition software. It may contain grammatical, syntax or spelling errors. Electronically signed by: Marquis Cullen M.D. 04/19/2022 2:[address] 04/21/22 16:[address] DOSE: 755.55 mGy.cm HISTORY: Persistent jaw pain right side TECHNIQUE: Multiaxial CT images of the maxillofacial region were performed and reformatted in the coronal plane without the use of contrast. A dose lowering technique was utilized adhering to the principles of ALARA. COMPARISON: None. FINDINGS: The visualized cervical spine,, pterygoid plates, zygomatic arches, lamina papyracea, and orbital floors are intact. Old nasal bone fractures are noted. Left deviation of the nasal septum. The paranasal sinuses and left mastoid air cells are clear. Evidence for prior right mastoidectomy with small amount of fluid remaining at the resection site. No fracture or dislocation within the mandible. No significant degenerative changes within the temporomandibular joints. However, there is asymmetric soft tissue thickening surrounding the angle and ramus of the right hemimandible primarily involving the dag sprayer muscles at this location. This includes the distal temporalis, lateral pterygoid, masseter, and buccinator muscles. No definite fluid collections on this noncontrast study. There is questionable minimal fat stranding at this location. No bony destruction identified. No lymphadenopathy within the upper cervical region. IMPRESSION: 1. Asymmetric soft tissue thickening surrounding the angle and ramus of the right hemimandible and involving the dag sprayer muscles at this location as described above. There is minimal adjacent fat stranding at this location. Therefore, this could represent an inflammatory/infectious process or possibly a soft tissue mass. ENT consultation recommended for further evaluation. 2. No fracture or dislocation within the mandible. ACT 112: Positive. There are findings on this exam that require communication between the performing entity and the patient following Patient Test Result Information Act ([place] Act 112) guidelines. Electronically signed by: Jhoan Alvarez M.D. 04/21/2022 5:13 PM Hospital Course (1) Weakness: Multifactorial, dental infection, positive cdiff toxin (not gene, but recent tx and on abx and continued), acute kidney injury on admit CT maxillofacial with IMPRESSION: 1. Asymmetric soft tissue thickening surrounding the angle and ramus of the right hemimandible and involving the dag sprayer muscles at this location as described above. There is minimal adjacent fat stranding at this location. Therefore, this could represent an inflammatory/infectious process or possibly a soft tissue mass. ENT consultation recommended for further evaluation. (there is asymmetric soft tissue thickening surrounding the angle and ramus of the right hemimandible primarily involving the dag sprayer muscles at this location.) 2. No fracture or dislocation within the mandible. Dr Zuniga consulted, previously had implant at site #29, also with large either carious or resorptive defect of distal tooth #31 (lower right) associated with impacted lower wisdom tooth. Requested and received dental xrays over [address] Xiao in [place] Needing need set of dental xrays to determine prognosis of implant at #29 or if the infection is from the implant #28 or the failed #30 implant site Patient called and has appointment with Dr Xiao tomorrow 04/26 at 10am and those xrays are to be sent to Dr Zuniga for further treatment plan to be determined Also to continue peridex mouth wash BID Covered with IV antibiotics during inpatient stay (Vanco/Zosyn initially given immunocompromised/finished chemo), nasal MRSA negative and de-escalated to Zosyn and planned Augmentin at discharge Also sent with rx for dificid for +gene with reported diarrhea and on abx. Bolton checked. To get dose this evening and resume tomorrow although do note NOT active toxin positive Initially concerns for a possible mastoiditis/patoitiditis. Seen by Dr Lynn, T- tube in place from R ear, culture with normal skin microbiota. No evidence for such on exam BCx on admit with coag neg staph not ludg, suspected contaminent. Repeat bcx NGTD WBC wnl, remained afebrile PT/OT consulted and patient made improvements with treatment of infection and able to go home safely. Of note, was mod-marked ascites on recent PET scan. No abdominal pain or fevers and non-tender on exam but does have ascites. Given not tender/no evidence for infection and discussion of cancer in surveillance, no paracentesis inpatient and can be done on outpatient basis if any issues. also of note, patient with Cr 2.68 on admission, had been taking lasix 20mg BID at home. Last admit in December with recs to decrease this to once daily at discharge. Has been on hold during inpatient stay with improvement in creatinine and instructed to hold for tomorrow and can resume once daily dosing thereafter (2) CKD (chronic kidney disease): Appears to have had an acute kidney injury on admission with Cr 2.68 with baseline closer to 2 *Of note, last notes in december 2021 with recs to decrease lasix to 20mg once daily but has been on 20mg bid. 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 At that time planning for 3-month follow-up with 3-month interval CT, per pt has had good response to chemo - 30lbs since chemo started Completed 4 cycles of cisplatin/etoposide on 02/18/2022 Finished chemo according to patient. Discussed with Perlita Maciel and patient with stable scans and on surveillance currently. Routine f/u outpatient with heme/oncology for any need for paracentesis in future (6) Mastoiditis: Pain to jaw, imaging as above. concerned initially but more likely dental infection as outlined above Dr Lynn consulted, no evidence for mastoiditis in patient with hx mastoidectomy for such Cx no growth Abx as outlined for above (7) Parotitis: Also discussed pain and findings on CT scan near right hemimandible, as above more suspection for dental infection in same region Abx and outpatient f/u as outlined (8) Gram-positive bacteremia: Appears contaminantCNS Repeat ngtd (9) Prolonged QT interval: Followed; maintained electrolytes remained stable (10) CAD (coronary atherosclerotic disease): No angina continued home medications (11) Diabetes mellitus: Last A1c 5.1, improved from priors Pharmacy consulted while inpatient, ISS utilizied Resumed home meds at discharge WITH EXCEPTION JANUMET GIVEN A1C 5.1 AND CR 2.68 ON ADMIT WITH BSGS WELL CONTROLLED REC'D OUTPATIENT FOLLOW UP (12) Diarrhea: Unclear if recurrent C. difficile (only gene positive) but had diarrhea that has improved on treatment and will continue with such Did get PO mag oxide which caused loose stools but no further cramping/liquid Dificid at d/c as outlined given on abx for dental infection (13) Ascites: Orders for paracentesis placed. Afebrile, no abdominal pain, does have some distention but nothing compared to in past reported by patient (PET scan March 29 with mod-marked abdominal and pelvic ascites) Cancelled paracentesis order, can f/u outpatient if any ongoing issues but would avoid to prevent introduction of additional infection when not currently causing patient issues Total Time Total Time Spent Total Time Spent (In Minutes): 70 Discharge Plan Discharge Items Patient Disposition: Home - Self-Care Reason For Visit: SHARON, N/V, INADEQUATE PO INTAKE Discharge Diagnosis: Dental Infection, Cdiff Condition on Discharge: Fair Goals: You have been hospitalized for an acute medical problem. During your stay at [facility], we have made an effort to correct the problem that brought you to the hospital while keeping you as comfortable as possible. Medications were used to bring your condition under control and your discharge instructions will include directions for any medications you should take after leaving the hospital. Please make sure you see your Primary Care Provider as part of your follow up plan. Activity: Resume your previous activity Non-emergency contact: Primary Care Provider and Specialist Call non-emergency contact if: you have any medication questions, your symptoms worsen, your pain is not controlled and you have a fever Follow-up/Referrals: Dionne Xiao [Other] Josafat Kohler DO [Primary Care Provider] - 05/01/22 4:00 pm (APPT WITH REFUGIO TERRAZAS) Smooth Zuniga DMD [Physician] - 04/28/22 9:15 am Diet: Carb Consistent or DM2 and Heart Healthy Addtl Attending Provider Instructions: You have been hospitalized for weakness,fatigue and found to have dental infection vs a failed previous implant. Dr Zuniga was consulted and discussed with your primary dentist previous imaging and will need repeat dental xrays as an outpatient to determine the next best steps and your dentist Dr Xiao is to have the imaging sent to Dr Zuniga after they are obtained. You have been treated with IV antibiotics while in the hospital and are being sent home on oral Augmentin TWICE DAILY in the meantime. You will also have a mouth wash called Peridex to help keep the mouth clean in the meantime and this should be used twice daily. Given antibiotics and previous cdiff, we sent this for testing and this was positive for the gene but NOT the toxin, but given immunosuppressed/history of cancer, you will continue oral Dificid 200mg by mouth twice daily for another 5 days after today. Lastly, with your weakness, your kidney numbers were on the higher side on admission and you were taking lasix twice daily at home. It is recommended to hold this for tomorrow and you can resume ONCE DAILY after that. Your blood sugars have also been very well controlled, and your last A1c was actually in the pre-diabetic range. Given your kidney disease and well controlled blood sugars, we have STOPPED the JANUMET (sitagliptan-metformin) for now and can have outpatient follow up. Weakness could have also been contributed to be acute kidney injury and your levels have been stable with holding the lasix. Please follow up with the dentist and Dr Zuniga this week. Please follow up with your primary care provider in the next 7-10 days to monitor your progress after discharge. It has been a pleasure being a part of the medical team providing for you while you have been in the hospital. Take care! Pending Studies at Discharge: Yes Studies:: Blood cultures, NO GROWTH TO DATE Stand-Alone Forms: My [facility] Medications and DC Order Prescriptions: New Dificid 200 mg Tablet 200 mg PO BID Qty: 11 0RF chlorhexidine gluconate [Paroex Oral Rinse] 0.12 % mouthwash 15 ml buccal BID Qty: 473 0RF amoxicillin-pot clavulanate 875-125 mg tablet 1 tab PO BID Qty: 14 0RF oxycodone 5 mg Tablet 5 mg PO Q6H PRN (Reason: pain) Qty: 6 0RF Continued carvedilol 12.5 mg tablet 12.5 mg PO BID Qty: 180 3RF Rx Instructions: must administer with a meal/food amiodarone 200 mg tablet 200 mg PO BID Qty: 180 3RF (DME) BD AutoShield Duo Pen Needle 30 gauge x 3/16" needle See Rx Instructions .ROUTE .MEDSUPPLY Qty: 100 1RF Rx Instructions: Use once daily to inject Victoza. DX E11.22 tamsulosin 0.4 mg capsule 0.4 mg PO HS Qty: 30 5RF ondansetron 4 mg tablet,disintegrating 4 mg PO Q8H PRN (Reason: nausea and vomiting) Qty: 30 1RF prochlorperazine maleate 10 mg tablet 10 mg PO Q6H PRN (Reason: Nausea) ciprofloxacin HCl 0.3 % drops See Rx Instructions ophthalmic (eye) .COMPLEX Qty: 10 3RF Rx Instructions: 5 drops into affected ear BID x 7 days then PRN pain or drainage. Victoza 2-Ronen 0.6 mg/0.1 mL (18 mg/3 mL) pen injector See Rx Instructions .ROUTE .COMPLEX Qty: 18 3RF Dose Instruction: INJECT 0.2ML (=1.2MG) SUBCUTANEOUSLY EVERY MORNING Rx Instructions: INJECT 0.2ML (=1.2MG) SUBCUTANEOUSLY EVERY MORNING Saccharomyces boulardii [Florastor] 250 mg capsule 250 mg PO BID Qty: 60 0RF gabapentin 100 mg capsule 100 mg PO HS Qty: 90 1RF lutein-zeaxanthin 25-5 mg capsule 1 cap PO HS cyanocobalamin (vitamin B-12) 5,000 mcg Capsule 5,000 mcg PO DAILY Rx Instructions: @ lunch multivitamin tablet 1 tab PO BID krill oil 500 mg capsule 500 mg PO HS aspirin 81 mg Tablet,Delayed Release (Dr/Ec) 81 mg PO QAM acetaminophen [Tylenol Extra Strength] 500 mg Tablet 1,000 mg PO Q6H PRN (Reason: Pain) Changed furosemide [Lasix] 20 mg tablet 20 mg PO DAILY Qty: 30 0RF Discontinued Janumet 50-1,000 mg tablet 1 tab PO BID Qty: 180 1RF Rx Instructions: TAKE THIS MED WITH BREAKFAST AND EVENING MEAL. Discharge Orders: Discharge Order (Routine); Ordered 04/25/22 Ordered By: Perlita Jones Admission Data Admit Date/Time: 04/19/22 17:00 Attending Provider: Maida Hunt Admit Provider: Gavin Moy Primary Care Provider: Josafat Kohler Other Providers: Gavin Moy ; Yina Lynn ; Smooth Zuniga Other Interventions: Discharge Summary Assessment (RN) Last Done: 04/25/22 15:49 Supervising Physician Co-Signing Physician Notes PA Supervision Note: I personally saw and examined the patient. I verified all lawrence points and agree with KASHIF Jones with the following exceptions and/or additions: S-Pt feeling better, no concerns. 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
[2022-04-25] MEDS: HEPARIN 100 UNIT/ML 5ML FLUSH FLUSH PRN (16:02)
== END 2022-04-25 19:22 | disposition home or self-care (01) | DRG 683 ==
LOC: ED 13:09 → SUATTDRO 17:00 → EDINP 17:00 → 3W 22:29
DX: Z95.0 Presence of cardiac pacemaker; E86.9 Volume depletion, unspecified; M27.62 Post-osseointegration biological failure of dental implant; E87.6 Hypokalemia; H70.11 Chronic mastoiditis, right ear; N18.4 Chronic kidney disease, stage 4 (severe); R18.8 Other ascites; Z79.82 Long term (current) use of aspirin; C62.90 Malignant neoplasm of unspecified testis, unspecified whether descended or undescended; Z87.891 Personal history of nicotine dependence; Z66 Do not resuscitate; I25.10 Atherosclerotic heart disease of native coronary artery without angina pectoris; R19.7 Diarrhea, unspecified; N17.9 Acute kidney failure, unspecified; I48.92 Unspecified atrial flutter; E11.22 Type 2 diabetes mellitus with diabetic chronic kidney disease; Z95.810 Presence of automatic (implantable) cardiac defibrillator

== ENCOUNTER 2022-06-19 13:19 | Inpatient (IN) ==
[2022-06-19 13:50] LABS: Basophils # (auto) 0.02 K/uL (0-0.2); Basophils % (auto) 0.4 %; Eosinophils # (auto) 0.06 K/uL (0-0.50); Eosinophils % (auto) 1.2 %; Hematocrit (blood only) 39.5 % (40.1-51.0); Hemoglobin 12.8 g/dl (14.0-18.0); Immature Granulocytes # (auto) 0.02 K/uL (0.00-0.02); Immature Granulocytes % (auto) 0.4 %; Mean Corpuscular Hemoglobin 31.9 pg (25.0-34.0); Mean Corpuscular Hgb Conc 32.4 g/dL (32.0-36.0); Mean Corpuscular Volume 98.5 fL (80.0-100.0); Mean Platelet Volume 12.8 fL (9.4-12.4); Monocytes # (auto) 0.61 K/uL (0.24-0.82); Monocytes % (auto) 12.2 %; Neutrophils % (auto) 63.8 %; Platelet Count 125 K/uL (130-400); RDW Coefficient of Variation 17.2 % (11.5-14.5); RDW Standard Deviation 61.9 fL (36.4-46.3); Red Blood Count 4.01 M/uL (4.63-6.08); White Blood Count 5.01 K/ul (4.8-10.8)
[2022-06-19 14:03] LABS: INR 1.1 (0.9-1.1); Partial Thromboplastin Time 26.6 Seconds (21.0-31.0); Prothrombin Time 11.8 Seconds (9.0-12.0)
[2022-06-19 14:11] LABS: Albumin Globulin Ratio 0.7 (0.9-2); Albumin Level 2.9 gm/dl (3.4-5.0); BUN Creatinine Ratio 14.6 (10-20); Bilirubin,Total 0.8 mg/dl (0.2-1.0); Calcium 8.6 mg/dl (8.5-10.1); Creatinine Clr Calc Pharmacy 41.2 ml/min; Est GFR (African American) 47.5 ml/min; Globulin 3.9 gm/dl (2.5-4.0); Magnesium 2.1 mg/dl (1.7-2.4); Potassium 3.3 mmol/L (3.5-5.1); Total Protein 6.8 gm/dl (6.0-8.3)
[2022-06-19] MEDS ORDERED: LIDOCAINE 1%/EPINEPHRINE 1:100,000 50 ML VIAL ONE (15:35)
[2022-06-19] MEDS ORDERED: LIDO/EPINEPHRINE/SOD BICARB 20 ML VIAL INFIL ONE (15:36)
--- NOTE | 2022-06-19 16:38 | XRay Report ---
XR chest 1V portable HISTORY: 81 years-old Male SOB acute shortness of breath COMPARISON: Chest radiograph 04/19/2022 TECHNIQUE: Portable AP view of the chest FINDINGS: Cardiac silhouette is upper limits of normal in size. Prior median sternotomy with CABG. Left subclav rakel pacer/AICD. Right subclavian Kwynnb-d-Mlet catheter distal tip is noted within the expected locat ion of the upper SVC. Moderate hemidiaphragmatic elevation. No pneumothorax, large pleural effusion o r overt pulmonary edema. Chronic interstitial coarsening. Degenerative changes of the shoulders and s pine. Healed chronic left-sided rib fractures. IMPRESSION: No acute process. ACT 112: Negative or not required by law. The above report was generated using voice recognition software. It may contain grammatical, syntax o r spelling errors. Electronically signed by: Marquis Cullen M.D. 06/19/2022 4:37 PM
--- NOTE | 2022-06-19 17:59 | CT Scan Report ---
CT chest diagnostic wo con CT DOSE: HISTORY: ro mets from testicular cancer TECHNIQUE: Multiaxial CT images of the chest were performed without contrast. A dose lowering techni que was utilized adhering to the principles of ALARA. COMPARISON: Chest CT 10/25/2021. FINDINGS: Biapical calcified pleural-parenchymal scarlike densities are again noted. Stable 3 mm nodu le within the right lung apex image 45. Stable 3 mm subpleural nodule within the left lower lobe on i mage 96 abutting the major fissure. No new or suspicious pulmonary nodules identified. Small patchy g roundglass and nodular densities within the right lower lobe and right middle lobe which are new from the prior study. This favors a pneumonia. Interstitial thickening at the lung bases is likely chroni c. This is similar to the prior study. The central airways are patent. No pneumothorax. Trace right p leural effusion. Normal thyroid gland. There is left-sided pacemaker and a right subclavian Port-A-Ca th which terminates at the SVC. Mild body wall edema and bilateral gynecomastia again noted. Please r efer to same day abdomen and pelvis CT for further evaluation of the abdominal structures. Ascites no poppy within the upper abdomen. No mediastinal or hilar lymphadenopathy. Normal caliber esophagus. Norm al caliber thoracic aorta. The heart is normal in size. No pericardial effusion. No suspicious lytic or blastic osseous lesions. Old, healed left-sided rib fractures are again noted. There are poststern otomy changes. IMPRESSION: 1. No evidence for metastatic disease within the chest. 2. Small patchy groundglass and nodular densities within the right lower lobe and right middle lobe w hich is new from the prior study. This favors a pneumonia. 3. Please refer the same day abdomen and pelvis CT for further evaluation of the abdominal structures . ACT 112: Negative or not required by law. Electronically signed by: Jhoan Alvarez M.D. 06/19/2022 5:56 PM
--- NOTE | 2022-06-19 18:02 | CT Scan Report ---
ABDOMEN AND PELVIS CT WITHOUT CONTRAST CT DOSE: 748.63 mGy.cm HISTORY: Abdominal pelvic ascites. new ascites ro mets from testicular ca TECHNIQUE: Multiaxial CT images of the abdomen and pelvis were performed without contrast. A dose lo wering technique was utilized adhering to the principles of ALARA. COMPARISON STUDY: Head CT 03/29/2022, CT abdomen and pelvis 01/13/2022 FINDINGS: Cardiomegaly with partially imaged pacer leads. Coronary artery calcifications. Trace right pleural effusion. Subsegmental patchy opacities of the right middle lobe with additional bibasilar a telectasis/scarring. No pneumatosis or pneumoperitoneum. Unremarkable spleen. Mildly atrophic pancreas with scattered punctate calcifications suggestive of ch ronic pancreatitis. Unremarkable adrenal glands. The visualized gallbladder is unremarkable. Hyperatt enuation of the liver, [place] of 80. Mild marginal nodularity of the liver. Unchanged 1.2 cm hypo dense No hepatic mass identified. 1.7 cm cyst within the inferior pole right kidney with layering mil k of calcium. 4 mm nonobstructing calculus of the inferior pole left kidney. No ureteral calculi or h ydronephrosis. Atherosclerosis of the aorta without aneurysm. Mild retroperitoneal soft tissue thicke marcello at the site of the previously noted pathologic lymphadenopathy appears stable. There is no new o r progressive lymphadenopathy identified. Study is limited without the use of contrast. Small hiatal hernia. Wall thickening of the mid to distal stomach with partial distention. No bowel o bstruction. Wall thickening is noted involving several loops of small bowel. Colonic diverticulosis. Noninflamed appendix. Moderate abdominal pelvic ascites has progressed from the prior studies. Mild g eneralized body wall edema. Healed chronic rib fractures are again noted. Gynecomastia. No destructiv e osteoblastic or osteolytic skeletal lesions identified. IMPRESSION: 1. Hyperattenuation of the liver redemonstrated which may represent sequela of prior drug toxicity, c opper or iron deposition. Additionally, there is evidence of cirrhosis with worsened abdominal pelvic ascites. Trace right pleural effusion with body wall edema. 2. No bowel obstruction or pneumoperitoneum. 3. Wall thickening involving several loops of small bowel is likely secondary to the patient's edemat ous state. A nonspecific enteritis appear similarly. 4. Persistent soft tissue thickening within the area of the previously described retroperitoneal mass /lymphadenopathy. No new or progressive lymphadenopathy identified. 5. Additional findings as above. ACT 112: Negative or not required by law. The above report was generated using voice recognition software. It may contain grammatical, syntax o r spelling errors. Electronically signed by: Marquis Cullen M.D. 06/19/2022 6:01 PM
--- NOTE | 2022-06-19 18:02 | Electrocardiogram Report ---
Test Reason : Blood Pressure : / mmHG Vent. Rate : 074 BPM Atrial Rate : 074 BPM P-R Int : 148 ms QRS Dur : 080 ms QT Int : 364 ms P-R-T Axes : 000 019 157 degrees QTc Int : 404 ms Sinus rhythm with occasional Premature ventricular complexes Inferior infarct , age undetermined Cannot rule out Anterior infarct , new When compared with ECG of 19-APR-2022 13:23, Premature ventricular complexes are now Present QRS duration has decreased Inferior infarct is now Present Confirmed by Lalit Lisa ([id number]) on 06/19/2022 6:02:46 PM Referred By: Confirmed By:Cody Lisa
[2022-06-19 18:41] LABS: Appearance Peritoneal Fluid Clear; Color Peritoneal Fluid Yellow; RBC Peritoneal Fluid (A) < 2000 /uL; WBC Peritoneal Fluid (A) 71 /ul (0-300)
[2022-06-19] MEDS ORDERED: SPIRONOLACTONE 25 MG TAB PO ONE (19:35)
[2022-06-19] MEDS ORDERED: DOXYCYCLINE HYCLATE 100 MG CAP PO STA (19:35)
[2022-06-19] MEDS ORDERED: POTASSIUM CHLORIDE 10 MEQ TABCR PO STA (19:35)
[2022-06-19 20:02] LABS: Lymphocytes, Fluid 34 %; Mono,Macrophage,Mesothelial 63 %; Neutrophils, Fluid 3 %
--- NOTE | 2022-06-19 20:41 | History & Physical Report ---
Date of Service June 19, 2022 Assessment & Plan (1) Ascites: Plan: 81-year-old male with history of metastatic testicular cancer presenting with progressive abdominal pain and distention. Found to have large amount of ascites which was removed via paracentesis in the ER. Cytology sent and is pending Ascitic albumin level pending Continue Lasix and spironolacton (2) Weakness: Plan: Progressive weakness over the last several months Possibly secondary to chronic illness PT/OT evaluation (3) Pneumonia: Plan: CT of the chest with small patchy groundglass and nodular densities within the right lower lobe and right middle lobe which is new from prior study. Favoring pneumonia. Patient is afebrile, nontoxic in appearance Ceftriaxone and azithromycin for now Monitor clinically (4) Atrial flutter: Plan: Patient with history of atrial flutter. Presently in sinus rhythm Continue amiodarone 200 mg p.o. twice daily Continue carvedilol Continue to monitor (5) Diabetes mellitus: Plan: Chronic. Blood sugar = 193 at present.Last hemoglobin A1c on 04/20/2022 = 5.1 Insulin sliding scale Goal blood sugar 1 -140 (6) Chronic kidney disease, stage III (moderate): Plan: BUN and creatinine near baseline Avoid nephrotoxic agents Repeat chemistry in a.m. (7) CAD (coronary atherosclerotic disease): Plan: Chronic. Stable. Patient denies chest pain Continue aspirin Continue carvedilol F/E/NHep-Lock. Heart healthy/consistent carb diet as tolerated, easy to chew texture. ProphylaxisLovenox 40 daily CodeDNR/DNI per discussion with patient Dispositionadmit to medical History of Present Illness Primary Care Provider: Josafat Kohler DO Tony Carroll is an 81yo male with history of multiple medical problems to include metastatic testicular cancer s/p chemotherapy - follows with Oncology, CAD s/p AL, AICD in place for history of NSVT, CKD, DM presenting with abdominal pain and distention as well as shortness of breath. Symptoms have been ongoing for the last week. He has had progressive abdominal distention. He denies fever, chills, chest pain, nausea, vomiting, diarrhea or constipation. Patient found to have significant amount of ascites. Had a paracentesis performed with 4L ascitic fluid removed. WBC=71 Overall he does endorse a progressive decline in functional status, energy and overall quality of life over the last several months. He reports losing quite a bit of weight, poor appetite and decreased oral intake. He has had diffuse weakness since February. He lives at home with his . Has difficulty with ambulation at times, has to climb steps to get into the home and to bed. Patient's voices some concern about getting home and getting the patient safely into bed. They request to stay at the hospital overnight. ER course: Doxycycline, Lasix, spironolactone, potassium Allergies Allergy/AdvReac Type Severity Reaction Status Date / Time No Known Drug Allergies Allergy nkda Verified 06/15/22 17:02 Home Medications Medication Instructions Recorded Confirmed Type cyanocobalamin (vitamin B-12) 5,000 mcg PO QPM 11/13/18 06/08/22 History 5,000 mcg capsule multivitamin 1 tab PO QPM 03/04/19 06/08/22 History aspirin 81 mg tablet,delayed 81 mg PO QAM 07/05/20 06/08/22 History release lutein 25 mg-zeaxanthin 5 mg 1 cap PO HS 11/05/20 06/08/22 History capsule krill oil 500 mg capsule 500 mg PO QPM 07/18/21 06/08/22 History carvedilol 12.5 mg tablet 12.5 mg PO BID #180 tabs 08/29/21 06/08/22 Rx amiodarone 200 mg tablet 200 mg PO BID #180 tabs 11/04/21 06/08/22 Rx pen needle,diabetic dual safty 30 #100 ea 11/07/21 06/08/22 Rx gauge x 3/16" (BD AutoShield Duo Pen Needle) tamsulosin 0.4 mg capsule 0.4 mg PO HS #30 caps 11/08/21 06/08/22 Rx ondansetron 4 mg disintegrating 4 mg PO Q8H PRN nausea and 11/11/21 06/08/22 Rx tablet vomiting #30 tabs prochlorperazine maleate 10 mg 10 mg PO Q6H PRN Nausea 12/16/21 06/08/22 History tablet liraglutide 0.6 mg/0.1 mL (18 mg/3 See Rx Instructions .Route 04/18/22 06/08/22 Rx mL) subcutaneous pen injector .COMPLEX #18 mL (Victoza 2-Ronen) acetaminophen 500 mg tablet 1,000 mg PO Q6H PRN Pain 04/19/22 06/08/22 History (Tylenol Extra Strength) BiPap Machine #1 ea 05/23/22 06/08/22 Rx Marijuana-Medical Card 1 inh inhalation UD PRN Nausea 05/29/22 06/08/22 History chlorhexidine gluconate 0.12 % 15 ml buccal HS 05/29/22 06/08/22 History mouthwash (Paroex Oral Rinse) furosemide 20 mg tablet (Lasix) 20 mg PO QAM 05/29/22 06/08/22 History amoxicillin 875 mg-potassium 1 tab PO Q12H #20 tabs 06/05/22 06/08/22 Rx clavulanate 125 mg tablet hydrocodone 5 mg-acetaminophen 325 1 tab PO Q4H PRN pain #20 tabs 06/05/22 06/08/22 Rx mg tablet ondansetron HCl 8 mg tablet 8 mg PO Q8H PRN nausea and 06/05/22 06/08/22 Rx vomiting #14 tabs amoxicillin 875 mg-potassium 1 tab PO Q12H #20 tabs 06/12/22 Rx clavulanate 125 mg tablet mirtazapine 15 mg tablet 15 mg PO DAILY #30 tabs 06/15/22 06/15/22 Rx silver sulfadiazine 1 % topical 1 applic topical ONCE #50 grams 06/15/22 06/15/22 Rx cream (Silvadene) doxycycline hyclate 100 mg capsule 100 mg PO BID 7 days #14 caps 06/19/22 Rx furosemide 20 mg tablet (Lasix) 20 mg PO DAILY #10 tabs 06/19/22 Rx spironolactone 50 mg tablet 50 mg PO DAILY #14 tabs 06/19/22 Rx Past Med/Surg History Medical History Abdominal pain Atrial flutter Presented to the emergency room on August 16, 2020 after syncopal episode; arrhythmia identified on arrival- based on his ICD evaluation, converted with an ICD shock and "seems to have remained in sinus rhythm. His current interrogation demonstrates no further atrial flutter since that shock." No sycnope since that time (Per cardio note 07/18/21) Benign prostatic hyperplasia CAD (coronary artery disease) H/O AL 1988, S/P CABG 3 vessel 1998 Chronic kidney disease, stage 4 (severe) Chronic kidney disease, stage III (moderate) Dehydration Depression HX Diabetes mellitus, type 2 Germ cell cancer Reason for port placement -CHEMO COMPLETED 04/17/2022 H/O acute myocardial infarction 1988 History of bladder stone History of cancer chemotherapy History of kidney stones History of subarachnoid hemorrhage History of ventricular fibrillation s/p ICD [place] (hard of hearing) Hyperlipidemia ICD (implantable cardioverter-defibrillator) in place INITIALLY IMPLANTED 2002 ; GENERATOR CHANGE 2011 AND DECEMBER 02, 2019- [employer] Ischemic cardiomyopathy (Unknown) S/p ICD implantation EF 40% per most recent echo 08/2020 Retroperitoneal lymphadenopathy SNHL (sensorineural hearing loss) Testicular cancer with mets to the lymph nodes. Needle biopsy at [facility] dx 11/2021. Surgical History Difficult airway for intubation PT REPORTS WAS TOLD PT WAS DIFFICULT INTUBATION - UNKNOWN FURTHER D ETAILS - ? SURGERY WAS TOLD THIS- POSSIBLY BYPASS SURGERY PER -PER PT 30+ YRS AGO?-NO RECENT ISSUES PER PT H/O tympanomastoidectomy RIGHT 11/12/20 [facility] History of adenoidectomy History of cardiac cath PRIOR TO HEART SURGERY, [facility] - NO STENT(S) History of cataract surgery R/L History of colonoscopy History of coronary artery bypass graft 3 [facility]SE[facility] 1998 History of cystoscopy REMOVAL KIDNEY STONE History of laminectomy History of nasal septoplasty History of tonsillectomy History of tonsillectomy and adenoidectomy History of tympanomastoidectomy (~12/2020) LEFT Hx of oral surgery (06/05/22) Removal of Infected Necrotic Bone Right Posterior Mandible and Infected Bone Screw and Fractured Teeth(Right) - Smooth Zuniga, DMD Implantation of internal cardiac defibrillator (05/02/12) Port-A-Cath in place (12/22/21) Insertion of Access Port Right Subclavian with Fluoroscopy(Right) - Ivan Peacock DO 12/22/2021 S/P ICD (internal cardiac defibrillator) procedure Placed 2002, generator change 2011 and 2019 Status post chemotherapy Family History Mother Breast cancer Family history of diabetes mellitus Grandmother (Maternal) No problems noted. Grandmother (Paternal) Myocardial infarction Breast cancer Father Myocardial infarction Brother Brain cancer Sister Cancer Denies family history of Ovarian cancer Prostate cancer Colorectal cancer Social History Smoking Status: Former smoker Tobacco Type: Cigarettes packs per day: 2; Years Smoked: 31; Cigarettes Per Day: 2.5; Smoking End Date: 1984; Second Hand Exposure: No; Hx Alcohol Use: Yes Hx Substance Use: No Preferred Language: [place] Communication Ability: Effective Visual Impairment: No Limitations Hearing Ability: Normal Showroom Manager Required: No Beliefs That Will Affect Care: None marital status: Current Living Situation: Spouse current occupational status: retired current occupation: How many Children do You have: 1 Other Information That Helps Us Care for You: No Feels Safe at Home: Yes Safety Concerns: Feels Safe At This Time Childhood Exposure to Second-Hand Smoke: No Diet Comment: "go low" Dental Care, Regularly: Yes Physical Activity Frequency: 1-2 Times per Week Seatbelt Use: always Sunscreen Use: No Assistive Devices: Cane, Denture - Upper, Denture - Lower, Glasses, Hearing Aid - Bilateral and Walker Assistive Devices Comment: glasses in room; other devices at home Review of Systems Review of Systems: All systems reviewed & are unremarkable except as noted in HPI & below Physical Exam Physical Exam: General: frail, chronically ill appearing patient resting comfortably, NAD, non-toxic in appearance, AA&O x 4 Skin: warm, dry, Stage II decubitus right hip, no bleeding or infection HEENT: NC/AT, PERRL, EOMI, anicteric sclera, conjunctiva without injection, ext ernal ear normal to inspection and nontender, nares patent, moist mucus membranes, no oropharyngeal lesions, neck supple, trachea midline, no LAD, no thyromegaly, no JVD Heart: +S1/S2, regular, no m/r/g, ICD left chest, port right chest Lungs: equal air entry bilaterally, no rales/rhonchi/wheezes Abd: +BS, soft, NT, +distention, no masses/organomegaly/ascites Ext: warm, 2+ pulses in UE/LE bilaterally, no clubbing/cyanosis or edema Neuro: nonfocal, patient AA&O x 4, speech intact, no facial droop, moving all extremities on command with equal strength 5/5 Results & Data Results & Data ([facility]) Vital Signs (Past 12 Hours) Vital Signs Temp Pulse Resp BP Pulse Ox O2 Del Method 06/19/22 20:00 61 15 96 06/19/22 20:00 126/70 06/19/22 19:30 61 19 99 06/19/22 19:30 123/71 06/19/22 19:12 61 22 96 06/19/22 19:12 134/70 06/19/22 19:11 96 06/19/22 17:30 62 20 97 06/19/22 17:30 112/69 06/19/22 17:00 62 17 98 06/19/22 17:00 128/76 06/19/22 16:30 55 L 13 97 06/19/22 16:30 125/78 06/19/22 16:01 64 14 97 06/19/22 16:01 153/76 H 06/19/22 16:00 64 16 95 06/19/22 15:30 62 13 97 06/19/22 15:30 126/74 06/19/22 15:07 66 12 98 06/19/22 15:20 77 25 H 97 Room Air 06/19/22 15:20 97 Room Air 06/19/22 15:20 26 H 97 Room Air 06/19/22 15:20 16 06/19/22 13:31 36.8 C 73 20 100/68 97 Room Air Laboratory Results Lab Results 06/19/22 06/19/22 06/19/22 Range/Units 13:37 13:37 13:37 WBC 5.01 (4.8-10.8) K/ul RBC 4.01 L (4.63-6.08) M/uL Hgb 12.8 L (14.0-18.0) g/dl Hct 39.5 L (40.1-51.0) % MCV 98.5 (80.0-100.0) fL MCH 31.9 (25.0-34.0) pg MCHC 32.4 (32.0-36.0) g/dL RDW Std Deviation 61.9 H (36.4-46.3) fL RDW Coeff of David 17.2 H (11.5-14.5) % Plt Count 125 L (130-400) K/uL MPV 12.8 H (9.4-12.4) fL Immature Gran % (Auto) 0.4 % Neut % (Auto) 63.8 % Lymph % (Auto) 22.0 % Butler % (Auto) 12.2 % Eos % (Auto) 1.2 % Baso % (Auto) 0.4 % Neut # (Auto) 3.20 (1.4-6.5) K/uL Lymph # (Auto) 1.10 L (1.2-3.4) K/uL Butler # (Auto) 0.61 (0.24-0.82) K/uL Eos # (Auto) 0.06 (0-0.50) K/uL Baso # (Auto) 0.02 (0-0.2) K/uL Immature Gran # (Auto) 0.02 (0.00-0.02) K/uL PT 11.8 (9.0-12.0) Seconds INR 1.1 (0.9-1.1) APTT 26.6 (21.0-31.0) Seconds PTT Ratio 1.0 Sodium 141 (136-145) mmol/L Potassium 3.3 L (3.5-5.1) mmol/L Chloride 107 (98-107) mmol/L Carbon Dioxide 27 (21-32) mmol/L Anion Gap 7 (3-11) BUN 23 (6-23) mg/dl Creatinine 1.57 H (0.6-1.4) mg/dl Est Cr Clr Drug Dosing 41.2 ml/min Est GFR ( Amer) 47.5 ml/min Est GFR (Non-Af Amer) 41.0 ml/min BUN/Creatinine Ratio 14.6 (10-20) Glucose 193 H (70-99(Fasting)) mg/dl POC Glucose (70-99) mg/dl Calcium 8.6 (8.5-10.1) mg/dl Magnesium 2.1 (1.7-2.4) mg/dl Total Bilirubin 0.8 (0.2-1.0) mg/dl AST 24 (13-39) U/L ALT 13 (7-52) U/L Alkaline Phosphatase 77 (34-104) U/L Total Protein 6.8 (6.0-8.3) gm/dl Albumin 2.9 L (3.4-5.0) gm/dl Globulin 3.9 (2.5-4.0) gm/dl Albumin/Globulin Ratio 0.7 L (0.9-2) Lipase (11-82) U/L Fluid Neutrophils % % Fluid Lymphocytes % % Fluid Meso/Macro/Butler % % Fluid Comment Peritoneal Color Peritoneal Appearance Peritoneal WBC (0-300) /ul Peritoneal RBC /uL Peritoneal Tot Protein gm/dl Peritoneal Albumin gm/dl SARS-CoV-2, RNA, NAAT (NEGATIVE) 06/19/22 06/19/22 06/19/22 Range/Units 13:37 15:50 15:50 WBC (4.8-10.8) K/ul RBC (4.63-6.08) M/uL Hgb (14.0-18.0) g/dl Hct (40.1-51.0) % MCV (80.0-100.0) fL MCH (25.0-34.0) pg MCHC (32.0-36.0) g/dL RDW Std Deviation (36.4-46.3) fL RDW Coeff of David (11.5-14.5) % Plt Count (130-400) K/uL MPV (9.4-12.4) fL Immature Gran % (Auto) % Neut % (Auto) % Lymph % (Auto) % Butler % (Auto) % Eos % (Auto) % Baso % (Auto) % Neut # (Auto) (1.4-6.5) K/uL Lymph # (Auto) (1.2-3.4) K/uL Butler # (Auto) (0.24-0.82) K/uL Eos # (Auto) (0-0.50) K/uL Baso # (Auto) (0-0.2) K/uL Immature Gran # (Auto) (0.00-0.02) K/uL PT (9.0-12.0) Seconds INR (0.9-1.1) APTT (21.0-31.0) Seconds PTT Ratio Sodium (136-145) mmol/L Potassium (3.5-5.1) mmol/L Chloride (98-107) mmol/L Carbon Dioxide (21-32) mmol/L Anion Gap (3-11) BUN (6-23) mg/dl Creatinine (0.6-1.4) mg/dl Est Cr Clr Drug Dosing ml/min Est GFR ( Amer) ml/min Est GFR (Non-Af Amer) ml/min BUN/Creatinine Ratio (10-20) Glucose (70-99(Fasting)) mg/dl POC Glucose (70-99) mg/dl Calcium (8.5-10.1) mg/dl Magnesium (1.7-2.4) mg/dl Total Bilirubin (0.2-1.0) mg/dl AST (13-39) U/L ALT (7-52) U/L Alkaline Phosphatase (34-104) U/L Total Protein (6.0-8.3) gm/dl Albumin (3.4-5.0) gm/dl Globulin (2.5-4.0) gm/dl Albumin/Globulin Ratio (0.9-2) Lipase 68 (11-82) U/L Fluid Neutrophils % 3 % Fluid Lymphocytes % 34 % Fluid Meso/Macro/Butler % 63 % Fluid Comment Peritoneal Color Yellow Peritoneal Appearance Clear Peritoneal WBC 71 (0-300) /ul Peritoneal RBC < 2000 /uL Peritoneal Tot Protein < 3.0 gm/dl Peritoneal Albumin gm/dl SARS-CoV-2, RNA, NAAT (NEGATIVE) 06/19/22 06/19/22 06/19/22 Range/Units 15:50 20:40 22:08 WBC (4.8-10.8) K/ul RBC (4.63-6.08) M/uL Hgb (14.0-18.0) g/dl Hct (40.1-51.0) % MCV (80.0-100.0) fL MCH (25.0-34.0) pg MCHC (32.0-36.0) g/dL RDW Std Deviation (36.4-46.3) fL RDW Coeff of David (11.5-14.5) % Plt Count (130-400) K/uL MPV (9.4-12.4) fL Immature Gran % (Auto) % Neut % (Auto) % Lymph % (Auto) % Butler % (Auto) % Eos % (Auto) % Baso % (Auto) % Neut # (Auto) (1.4-6.5) K/uL Lymph # (Auto) (1.2-3.4) K/uL Butler # (Auto) (0.24-0.82) K/uL Eos # (Auto) (0-0.50) K/uL Baso # (Auto) (0-0.2) K/uL Immature Gran # (Auto) (0.00-0.02) K/uL PT (9.0-12.0) Seconds INR (0.9-1.1) APTT (21.0-31.0) Seconds PTT Ratio Sodium (136-145) mmol/L Potassium (3.5-5.1) mmol/L Chloride (98-107) mmol/L Carbon Dioxide (21-32) mmol/L Anion Gap (3-11) BUN (6-23) mg/dl Creatinine (0.6-1.4) mg/dl Est Cr Clr Drug Dosing ml/min Est GFR ( Amer) ml/min Est GFR (Non-Af Amer) ml/min BUN/Creatinine Ratio (10-20) Glucose (70-99(Fasting)) mg/dl POC Glucose 98 (70-99) mg/dl Calcium (8.5-10.1) mg/dl Magnesium (1.7-2.4) mg/dl Total Bilirubin (0.2-1.0) mg/dl AST (13-39) U/L ALT (7-52) U/L Alkaline Phosphatase (34-104) U/L Total Protein (6.0-8.3) gm/dl Albumin (3.4-5.0) gm/dl Globulin (2.5-4.0) gm/dl Albumin/Globulin Ratio (0.9-2) Lipase (11-82) U/L Fluid Neutrophils % % Fluid Lymphocytes % % Fluid Meso/Macro/Butler % % Fluid Comment Peritoneal Color Peritoneal Appearance Peritoneal WBC (0-300) /ul Peritoneal RBC /uL Peritoneal Tot Protein gm/dl Peritoneal Albumin < 1.5 gm/dl SARS-CoV-2, RNA, NAAT NEGATIVE (NEGATIVE) Code Status & VTE Plan VTE Prophylaxis Plan VTE Prophylaxis will be ordered: Yes PG Care Time/CCT Total # of Minutes Spent Total Time Spent with Patient: Total time spent is greater than 50% in coordination of care (as documented) at patient's floor/unit and/or counseling patient: Coding Level of Care Code 24952 Initial Inpt Care Lvl 3 Diagnoses Ascites R18.8 Weakness R53.1 Pneumonia J18.9 Atrial flutter I48.3 Atrial flutter type: typical Diabetes mellitus E11.22; N18.3 Chronic kidney disease stage: stage 3 (moderate) Diabetes mellitus complication detail: with chronic kidney disease Diabetes mellitus complication status: with kidney complications Diabetes mellitus senior care insulin use: without senior care use Diabetes mellitus type: type 2 Chronic kidney disease, stage III (moderate) N18.3 CAD (coronary atherosclerotic disease) I25.10 (1) Diabetes mellitus Chronic kidney disease stage: stage 3 (moderate) Diabetes mellitus complication detail: with chronic kidney disease Diabetes mellitus complication status: with kidney complications Diabetes mellitus senior care insulin use: without senior care use Diabetes mellitus type: type 2 Qualified Code(s): E11.22 - Type 2 diabetes mellitus with diabetic chronic kidney disease; N18.3 - Chronic kidney disease, stage 3 (moderate) (2) Atrial flutter Atrial flutter type: typical Qualified Code(s): I48.3 - Typical atrial flutter
--- NOTE | 2022-06-19 22:01 | Emergency Department Note ---
History of Present Illness General Chief complaint: Abdominal Pain Stated complaint: ABDOMINAL PAIN Time Seen by Provider: 06/19/22 14:49 History of Present Illness Provider complaint: Abdominal pain Onset (ago): week(s) 1 Location: abdomen Radiation: non-radiation Severity: moderate Maximum Pain Intensity: 6 Current Pain Intensity: 6 Quality: + dull and + other (pressure) Relieved By: + none Exacerbated By: + none Associated symptoms: + shortness of breath; no chest pain, no cough, no fever/chills, no headaches or no nausea/vomiting 81-year-old male presents emergency department for abdominal pain. Patient and report that the patient has been having increasing abdominal pain for the last week. reports that the patient's stomach is becoming increasingly distended. The patient also reports increased difficulty breathing. Patient reports no fever. Reports no nausea or vomiting. He reports no hematuria or dysuria. No melena or hematochezia. No chest pain. No hemoptysis. The patient does report that he has a history of testicular cancer but he states he finished treatment with Dr. Goodman in March and is cancer free. Home Medications Medication Instructions Recorded Confirmed Type cyanocobalamin (vitamin B-12) 5,000 mcg PO QPM 11/13/18 06/08/22 History 5,000 mcg capsule multivitamin 1 tab PO QPM 03/04/19 06/08/22 History aspirin 81 mg tablet,delayed 81 mg PO QAM 07/05/20 06/08/22 History release lutein 25 mg-zeaxanthin 5 mg 1 cap PO HS 11/05/20 06/08/22 History capsule krill oil 500 mg capsule 500 mg PO QPM 07/18/21 06/08/22 History carvedilol 12.5 mg tablet 12.5 mg PO BID #180 tabs 08/29/21 06/08/22 Rx amiodarone 200 mg tablet 200 mg PO BID #180 tabs 11/04/21 06/08/22 Rx pen needle,diabetic dual safty 30 #100 ea 11/07/21 06/08/22 Rx gauge x 3/16" (BD AutoShield Duo Pen Needle) tamsulosin 0.4 mg capsule 0.4 mg PO HS #30 caps 11/08/21 06/08/22 Rx ondansetron 4 mg disintegrating 4 mg PO Q8H PRN nausea and 11/11/21 06/08/22 Rx tablet vomiting #30 tabs prochlorperazine maleate 10 mg 10 mg PO Q6H PRN Nausea 12/16/21 06/08/22 History tablet liraglutide 0.6 mg/0.1 mL (18 mg/3 See Rx Instructions .Route 04/18/22 06/08/22 Rx mL) subcutaneous pen injector .COMPLEX #18 mL (Victoza 2-Ronen) acetaminophen 500 mg tablet 1,000 mg PO Q6H PRN Pain 04/19/22 06/08/22 History (Tylenol Extra Strength) BiPap Machine #1 ea 05/23/22 06/08/22 Rx Marijuana-Medical Card 1 inh inhalation UD PRN Nausea 05/29/22 06/08/22 History chlorhexidine gluconate 0.12 % 15 ml buccal HS 05/29/22 06/08/22 History mouthwash (Paroex Oral Rinse) furosemide 20 mg tablet (Lasix) 20 mg PO QAM 05/29/22 06/08/22 History amoxicillin 875 mg-potassium 1 tab PO Q12H #20 tabs 06/05/22 06/08/22 Rx clavulanate 125 mg tablet hydrocodone 5 mg-acetaminophen 325 1 tab PO Q4H PRN pain #20 tabs 06/05/22 06/08/22 Rx mg tablet ondansetron HCl 8 mg tablet 8 mg PO Q8H PRN nausea and 06/05/22 06/08/22 Rx vomiting #14 tabs amoxicillin 875 mg-potassium 1 tab PO Q12H #20 tabs 06/12/22 Rx clavulanate 125 mg tablet mirtazapine 15 mg tablet 15 mg PO DAILY #30 tabs 06/15/22 06/15/22 Rx silver sulfadiazine 1 % topical 1 applic topical ONCE #50 grams 06/15/22 Rx cream (Silvadene) doxycycline hyclate 100 mg capsule 100 mg PO BID 7 days #14 caps 06/19/22 Rx furosemide 20 mg tablet (Lasix) 20 mg PO DAILY #10 tabs 06/19/22 Rx spironolactone 50 mg tablet 50 mg PO DAILY #14 tabs 06/19/22 Rx Allergies Allergy/AdvReac Type Severity Reaction Status Date / Time No Known Drug Allergies Allergy nkda Verified 06/15/22 17:02 Past Med/Surg History Medical History Abdominal pain Atrial flutter Presented to the emergency room on August 16, 2020 after syncopal episode; arrhythmia identified on arrival- based on his ICD evaluation, converted with an ICD shock and "seems to have remained in sinus rhythm. 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 -CHEMO COMPLETED 04/17/2022 H/O acute myocardial infarction 1988 History of bladder stone History of cancer chemotherapy History of kidney stones History of subarachnoid hemorrhage History of ventricular fibrillation s/p ICD TORRES MARTINEZ (hard of hearing) Hyperlipidemia ICD (implantable cardioverter-defibrillator) in place INITIALLY IMPLANTED 2002 ; GENERATOR CHANGE 2011 AND DECEMBER 02, 2019- [employer] Ischemic cardiomyopathy (Unknown) S/p ICD implantation EF 40% per most recent echo 08/2020 Retroperitoneal lymphadenopathy SNHL (sensorineural hearing loss) Testicular cancer with mets to the lymph nodes. Needle biopsy at [facility] dx 11/2021. Surgical History Difficult airway for intubation PT REPORTS WAS TOLD PT WAS DIFFICULT INTUBATION - UNKNOWN FURTHER DETAILS - ? SURGERY WAS TOLD THIS- POSSIBLY BYPASS SURGERY PER -PER PT 30+ YRS AGO?-NO RECENT ISSUES PER PT H/O tympanomastoidectomy RIGHT 11/12/20 [facility] History of adenoidectomy History of cardiac cath PRIOR TO HEART SURGERY, [facility] - NO STENT(S) History of cataract surgery R/L History of colonoscopy History of coronary artery bypass graft 3 VESSELS 1998 History of cystoscopy REMOVAL KIDNEY STONE History of laminectomy History of nasal septoplasty History of tonsillectomy History of tonsillectomy and adenoidectomy History of tympanomastoidectomy (~12/2020) LEFT Hx of oral surgery (06/05/22) Removal of Infected Necrotic Bone Right Posterior Mandible and Infected Bone Screw and Fractured Teeth(Right) - Smooth Zuniga, DMD Implantation of internal cardiac defibrillator (05/02/12) Port-A-Cath in place (12/22/21) Insertion of Access Port Right Subclavian with Fluoroscopy(Right) - Ivan Peacock DO 12/22/2021 S/P ICD (internal cardiac defibrillator) procedure Placed 2002, generator change 2011 and 2019 Status post chemotherapy Family History Mother Breast cancer Family history of diabetes mellitus Grandmother (Maternal) No problems noted. Grandmother (Paternal) Myocardial infarction Breast cancer Father Myocardial infarction Brother Brain cancer Sister Cancer Denies family history of Ovarian cancer Prostate cancer Colorectal cancer Social History Smoking Status: Former smoker Tobacco Type: Cigarettes packs per day: 2; Years Smoked: 31; Cigarettes Per Day: 2.5; Second Hand Exposure: No; Hx Alcohol Use: No Hx Substance Use: No Preferred Language: Niuean Communication Ability: Effective Visual Impairment: No Limitations Hearing Ability: Normal Utility Locator Required: No Beliefs That Will Affect Care: Rastafari Rastafari Beliefs: ZOROASTRIANISM marital status: Current Living Situation: Spouse current occupational status: retired current occupation: How many Children do You have: 1 Feels Safe at Home: Yes Childhood Exposure to Second-Hand Smoke: No Diet Comment: "go low" Dental Care, Regularly: Yes Physical Activity Frequency: 1-2 Times per Week Seatbelt Use: always Sunscreen Use: No Assistive Devices: Denture - Lower, Glasses, Hearing Aid - Bilateral and Walker Review of Systems A total of 10 systems reviewed and were otherwise negative Physical Exam Vital Signs Vital Signs - 24 hr 06/19/22 13:31 06/19/22 15:20 06/19/22 15:20 Temperature 36.8 C Temperature Source Temporal Artery Scan Pulse Rate 73 Pulse Rate from SpO2 Sensor Pulse Rhythm Regular Pulse Strength Normal Respiratory Rate 20 16 26 H Respiratory Effort / Characteristics Non-Labored Spontaneous Non-Labored Respiratory Depth Normal Normal Respiratory Pattern Regular Blood Pressure 100/68 Blood Pressure Mean 78 Blood Pressure Position Sitting Pulse Oximetry 97 97 Oxygen Delivery Method Room Air Room Air Sepsis Recent Fever Within 48 Hours No Sepsis New/Unexplained Change in Mental Status No Sepsis Action Taken by Nursing No Action Required 06/19/22 15:20 06/19/22 15:20 06/19/22 15:07 Temperature Temperature Source Pulse Rate 77 66 Pulse Rate from SpO2 Sensor 65 Pulse Rhythm Regular Pulse Strength Respiratory Rate 25 H 12 Respiratory Effort / Characteristics Respiratory Depth Respiratory Pattern Blood Pressure Blood Pressure Mean Blood Pressure Position Pulse Oximetry 97 97 98 Oxygen Delivery Method Room Air Room Air Sepsis Recent Fever Within 48 Hours Sepsis New/Unexplained Change in Mental Status Sepsis Action Taken by Nursing 06/19/22 15:30 06/19/22 15:30 06/19/22 16:00 Temperature Temperature Source Pulse Rate 62 64 Pulse Rate from SpO2 Sensor 65 64 Pulse Rhythm Pulse Strength Respiratory Rate 13 16 Respiratory Effort / Characteristics Respiratory Depth Respiratory Pattern Blood Pressure 126/74 Blood Pressure Mean 91 Blood Pressure Position Pulse Oximetry 97 95 Oxygen Delivery Method Sepsis Recent Fever Within 48 Hours Sepsis New/Unexplained Change in Mental Status Sepsis Action Taken by Nursing 06/19/22 16:01 06/19/22 16:01 06/19/22 16:30 Temperature Temperature Source Pulse Rate 64 Pulse Rate from SpO2 Sensor 64 Pulse Rhythm Pulse Strength Respiratory Rate 14 Respiratory Effort / Characteristics Respiratory Depth Respiratory Pattern Blood Pressure 153/76 H 125/78 Blood Pressure Mean 101 93 Blood Pressure Position Pulse Oximetry 97 Oxygen Delivery Method Sepsis Recent Fever Within 48 Hours Sepsis New/Unexplained Change in Mental Status Sepsis Action Taken by Nursing 06/19/22 16:30 06/19/22 17:00 06/19/22 17:00 Temperature Temperature Source Pulse Rate 55 L 62 Pulse Rate from SpO2 Sensor 57 L 62 Pulse Rhythm Pulse Strength Respiratory Rate 13 17 Respiratory Effort / Characteristics Respiratory Depth Respiratory Pattern Blood Pressure 128/76 Blood Pressure Mean 93 Blood Pressure Position Pulse Oximetry 97 98 Oxygen Delivery Method Sepsis Recent Fever Within 48 Hours Sepsis New/Unexplained Change in Mental Status Sepsis Action Taken by Nursing 06/19/22 17:30 06/19/22 17:30 06/19/22 19:11 Temperature Temperature Source Pulse Rate 62 Pulse Rate from SpO2 Sensor 62 69 Pulse Rhythm Pulse Strength Respiratory Rate 20 Respiratory Effort / Characteristics Respiratory Depth Respiratory Pattern Blood Pressure 112/69 Blood Pressure Mean 83 Blood Pressure Position Pulse Oximetry 97 96 Oxygen Delivery Method Sepsis Recent Fever Within 48 Hours Sepsis New/Unexplained Change in Mental Status Sepsis Action Taken by Nursing 06/19/22 19:12 06/19/22 19:12 06/19/22 19:30 Temperature Temperature Source Pulse Rate 61 Pulse Rate from SpO2 Sensor 66 Pulse Rhythm Pulse Strength Respiratory Rate 22 Respiratory Effort / Characteristics Respiratory Depth Respiratory Pattern Blood Pressure 134/70 123/71 Blood Pressure Mean 91 88 Blood Pressure Position Pulse Oximetry 96 Oxygen Delivery Method Sepsis Recent Fever Within 48 Hours Sepsis New/Unexplained Change in Mental Status Sepsis Action Taken by Nursing 06/19/22 19:30 06/19/22 20:00 06/19/22 20:00 Temperature Temperature Source Pulse Rate 61 61 Pulse Rate from SpO2 Sensor 62 60 Pulse Rhythm Pulse Strength Respiratory Rate 19 15 Respiratory Effort / Characteristics Respiratory Depth Respiratory Pattern Blood Pressure 126/70 Blood Pressure Mean 88 Blood Pressure Position Pulse Oximetry 99 96 Oxygen Delivery Method Sepsis Recent Fever Within 48 Hours Sepsis New/Unexplained Change in Mental Status Sepsis Action Taken by Nursing 06/19/22 20:30 06/19/22 20:30 Temperature Temperature Source Pulse Rate 60 Pulse Rate from SpO2 Sensor 59 L Pulse Rhythm Pulse Strength Respiratory Rate 17 Respiratory Effort / Characteristics Respiratory Depth Respiratory Pattern Blood Pressure 125/73 Blood Pressure Mean 90 Blood Pressure Position Pulse Oximetry 97 Oxygen Delivery Method Sepsis Recent Fever Within 48 Hours Sepsis New/Unexplained Change in Mental Status Sepsis Action Taken by Nursing Physical Exam GENERAL: He is oriented to person, place, and time. He appears well-developed and well-nourished. He does not appear distressed. HENT: Exam performed. - Head: Normocephalic and atraumatic. - Right Ear: External ear normal. No mastoid tenderness. - Left Ear: External ear normal. No mastoid tenderness. - Mouth/Throat: The oropharynx is clear and moist. No trismus in the jaw. No dental abscesses or uvula swelling. No oropharyngeal exudate or tonsillar abscesses. EYES: Conjunctivae and EOM are normal. Pupils are equal, round, and reactive to light. Right eye exhibits no discharge. Left eye exhibits no discharge. No scleral icterus. NECK: Normal range of motion. Neck supple. No JVD present. No spinous process tenderness present. No carotid bruit present. No rigidity. No tracheal deviation and normal range of motion present. No Brudzinski's sign and no Kernig's sign noted. CV: Normal rate, regular rhythm, normal heart sounds and intact distal pulses. There is no peripheral edema. Palpable radial pulses bue. PULM/CHEST: Effort normal and breath sounds normal. No respiratory distress. No stridor. He has no wheezes. He has no rales. - Chest Wall: He exhibits no tenderness. ABD: The abdomen is soft and distended. No pain on palpation of the abdomen. MUSC/SKEL: Normal range of motion. There is no peripheral edema, tenderness or deformity. LYMPH: No cervical adenopathy. NEURO: He is alert and oriented to person, place, and time. He has normal strength. No cranial nerve deficit or sensory deficit. Coordination and gait normal. GCS eye subscore is 4. GCS verbal subscore is 5. GCS motor subscore is 6. Cerebellar tests wnl. SKIN: Skin is warm and dry. He is not diaphoretic. PSYCH: He has a normal mood and affect. Behavior is normal. Judgment and thought content normal. Procedures Paracentesis Time Out Performed: Yes Indication: possible spontaneous bacterial peritonitis Procedure: therapeutic paracentesis Location: RLQ Local Anesthetic: lidocaine 1% and with epi Amount of anesthesia used (mL): 3 Bedside Ultrasound Used: yes, real-time guidance Preparation: sterile prep and drape Amount of fluid obtained (mL): 4,000 Fluid: clear and sent to lab for analysis Post Procedure Exam: awake, alert, normal BP, normal HR and normal SpO2 Patient Tolerated Procedure: well Complications: none Course Course 1449: The patient was evaluated in room A4. A complete history and physical exam was performed Cardiac monitoring: An order was placed for continuous cardiac monitoring. The monitor shows a rate of 60 with sinus rhythm 1640: Vital signs stable. Labs within normal limits with the exception of potassium 3.3. Creatinine at baseline. Paracentesis was performed, see procedure note. 4 L of straw-colored fluid was removed. The fluid did not look cloudy purulent and did not look infected. Given this, there was concern that the patient's ascites could represent new malignancy. Discussed the case with oncology Dr. Morris she agrees that this could be a possibility. He recommends a CT of the chest and abdomen to rule out metastasis and recurrence of malignancy. Given the patient's creatinine and history of CKD she is okay with CT of the chest and abdomen being performed without contrast. She states that if there is no evidence of SBP the patient can be discharged and follow-up with her outpatient. 1915: Vital signs stable. Ascitic fluid is not concerning for SBP. CT of the chest shows possible right-sided pneumonia. CT of the abdomen shows hypoattenuation of the liver which may represent sequela of prior drug toxicity copper or iron deposition. There is evidence of cirrhosis with worsened a bdominal pelvic ascites. Discussed the case with GI on-call Dr. Londono. He recommends getting a albumin on the ascitic fluid though sent down. He states to start the patient on Lasix 20 mg daily and spironolactone 50 mg daily and that he can follow-up with him in the next week in the outpatient setting no need for admission. Discussed the case with the patient and at bedside and they are in agreement. First dose of spironolactone and Lasix given in the emergency department. Potassium repleted in the emergency department. Patient be treated with doxycycline for the possible pneumonia seen on CT imaging. DISCHARGE - Plan of care discussed with patient and questions answered. The p atient was given both verbal and printed discharge instructions. The patient verbalized understanding and ability to comply. The patient is to seek outpatient follow up as noted in the discharge instructions. The patient verbalized understanding and ability to comply. The patient is discharged in st able condition. The patient was instructed to return for worsening symptoms. 1945: At the time of discharge the states she does not feel comfortable taking the patient home as he is increasingly weak and they have lots of stairs in their house and she is asking if the patient could be admitted to the hospital overnight. Discussed the case with Dr. Zia Rubio [place] hospitalist will evaluate the patient for admission. Administered Medications Discontinued Medications Doxycycline Hyclate (Doxycycline Hyclate 100 Mg Cap) 100 mg PO NOW STA Stop: 06/19/22 19:36 Last Admin: 06/19/22 20:34 Dose: 100 mg Documented By: ALMA Lidocaine/Epinephrine (Lidocaine 1%/Epinephrine 1:100,000 50 Ml Vial) Confirm Administered Dose 50 ml .ROUTE .STK-MED ONE Stop: 06/19/22 15:36 Last Admin: 06/19/22 16:48 Dose: Not Given Documented By: RDD Lidocaine/Epinephrine (Lido/Epinephrine/Sod Bicarb 20 Ml Vial) Confirm Administered Dose 20 ml INFIL .STK-MED ONE Stop: 06/19/22 15:37 Last Admin: 06/19/22 16:48 Dose: Not Given Documented By: RDD Potassium Chloride (Potassium Chloride 10 Meq Tabcr) 20 meq PO NOW STA Stop: 06/19/22 19:36 Last Admin: 06/19/22 20:34 Dose: 20 meq Documented By: ALMA Spironolactone (Spironolactone 25 Mg Tab) 50 mg PO NOW ONE Stop: 06/19/22 19:36 Last Admin: 06/19/22 20:34 Dose: 50 mg Documented By: ALMA Medical Decision Making Laboratory Data Result diagrams: 06/19/22 13:37 06/19/22 13:37 Lab Results 06/19/22 06/19/22 06/19/22 Range/Units 13:37 13:37 13:37 WBC 5.01 (4.8-10.8) K/ul RBC 4.01 L (4.63-6.08) M/uL Hgb 12.8 L (14.0-18.0) g/dl Hct 39.5 L (40.1-51.0) % MCV 98.5 (80.0-100.0) fL MCH 31.9 (25.0-34.0) pg MCHC 32.4 (32.0-36.0) g/dL RDW Std Deviation 61.9 H (36.4-46.3) fL RDW Coeff of David 17.2 H (11.5-14.5) % Plt Count 125 L (130-400) K/uL MPV 12.8 H (9.4-12.4) fL Immature Gran % (Auto) 0.4 % Neut % (Auto) 63.8 % Lymph % (Auto) 22.0 % [place]upe % (Auto) 12.2 % Eos % (Auto) 1.2 % Baso % (Auto) 0.4 % Neut # (Auto) 3.20 (1.4-6.5) K/uL Lymph # (Auto) 1.10 L (1.2-3.4) K/uL [place] # (Auto) 0.61 (0.24-0.82) K/uL Eos # (Auto) 0.06 (0-0.50) K/uL Baso # (Auto) 0.02 (0-0.2) K/uL Immature Gran # (Auto) 0.02 (0.00-0.02) K/uL PT 11.8 (9.0-12.0) Seconds INR 1.1 (0.9-1.1) APTT 26.6 (21.0-31.0) Seconds PTT Ratio 1.0 Sodium 141 (136-145) mmol/L Potassium 3.3 L (3.5-5.1) mmol/L Chloride 107 (98-107) mmol/L Carbon Dioxide 27 (21-32) mmol/L Anion Gap 7 (3-11) BUN 23 (6-23) mg/dl Creatinine 1.57 H (0.6-1.4) mg/dl Est Cr Clr Drug Dosing 41.2 ml/min Est GFR ( Amer) 47.5 ml/min Est GFR (Non-Af Amer) 41.0 ml/min BUN/Creatinine Ratio 14.6 (10-20) Glucose 193 H (70-99(Fasting)) mg/dl Calcium 8.6 (8.5-10.1) mg/dl Magnesium 2.1 (1.7-2.4) mg/dl Total Bilirubin 0.8 (0.2-1.0) mg/dl AST 24 (13-39) U/L ALT 13 (7-52) U/L Alkaline Phosphatase 77 (34-104) U/L Total Protein 6.8 (6.0-8.3) gm/dl Albumin 2.9 L (3.4-5.0) gm/dl Globulin 3.9 (2.5-4.0) gm/dl Albumin/Globulin Ratio 0.7 L (0.9-2) Lipase (11-82) U/L Fluid Neutrophils % % Fluid Lymphocytes % % Fluid Meso/Macro/Guadalupe % % Fluid Comment Peritoneal Color Peritoneal Appearance Peritoneal WBC (0-300) /ul Peritoneal RBC /uL Peritoneal Tot Protein gm/dl Peritoneal Albumin gm/dl SARS-CoV-2, RNA, NAAT (NEGATIVE) 06/19/22 06/19/22 06/19/22 Range/Units 13:37 15:50 15:50 WBC (4.8-10.8) K/ul RBC (4.63-6.08) M/uL Hgb (14.0-18.0) g/dl Hct (40.1-51.0) % MCV (80.0-100.0) fL MCH (25.0-34.0) pg MCHC (32.0-36.0) g/dL RDW Std Deviation (36.4-46.3) fL RDW Coeff of David (11.5-14.5) % Plt Count (130-400) K/uL MPV (9.4-12.4) fL Immature Gran % (Auto) % Neut % (Auto) % Lymph % (Auto) % [place] % (Auto) % Eos % (Auto) % Baso % (Auto) % Neut # (Auto) (1.4-6.5) K/uL Lymph # (Auto) (1.2-3.4) K/uL [place] # (Auto) (0.24-0.82) K/uL Eos # (Auto) (0-0.50) K/uL Baso # (Auto) (0-0.2) K/uL Immature Gran # (Auto) (0.00-0.02) K/uL PT (9.0-12.0) Seconds INR (0.9-1.1) APTT (21.0-31.0) Seconds PTT Ratio Sodium (136-145) mmol/L Potassium (3.5-5.1) mmol/L Chloride (98-107) mmol/L Carbon Dioxide (21-32) mmol/L Anion Gap (3-11) BUN (6-23) mg/dl Creatinine (0.6-1.4) mg/dl Est Cr Clr Drug Dosing ml/min Est GFR ( Amer) ml/min Est GFR (Non-Af Amer) ml/min BUN/Creatinine Ratio (10-20) Glucose (70-99(Fasting)) mg/dl Calcium (8.5-10.1) mg/dl Magnesium (1.7-2.4) mg/dl Total Bilirubin (0.2-1.0) mg/dl AST (13-39) U/L ALT (7-52) U/L Alkaline Phosphatase (34-104) U/L Total Protein (6.0-8.3) gm/dl Albumin (3.4-5.0) gm/dl Globulin (2.5-4.0) gm/dl Albumin/Globulin Ratio (0.9-2) Lipase 68 (11-82) U/L Fluid Neutrophils % 3 % Fluid Lymphocytes % 34 % Fluid Meso/Macro/Gu[place]upe % 63 % Fluid Comment Peritoneal Color Yellow Peritoneal Appearance Clear Peritoneal WBC 71 (0-300) /ul Peritoneal RBC < 2000 /uL Peritoneal Tot Protein < 3.0 gm/dl Peritoneal Albumin gm/dl SARS-CoV-2, RNA, NAAT (NEGATIVE) 06/19/22 06/19/22 Range/Units 15:50 20:40 WBC (4.8-10.8) K/ul RBC (4.63-6.08) M/uL Hgb (14.0-18.0) g/dl Hct (40.1-51.0) % MCV (80.0-100.0) fL MCH (25.0-34.0) pg MCHC (32.0-36.0) g/dL RDW Std Deviation (36.4-46.3) fL RDW Coeff of David (11.5-14.5) % Plt Count (130-400) K/uL MPV (9.4-12.4) fL Immature Gran % (Auto) % Neut % (Auto) % Lymph % (Auto) % [place] % (Auto) % Eos % (Auto) % Baso % (Auto) % Neut # (Auto) (1.4-6.5) K/uL Lymph # (Auto) (1.2-3.4) K/uL [place] # (Auto) (0.24-0.82) K/uL Eos # (Auto) (0-0.50) K/uL Baso # (Auto) (0-0.2) K/uL Immature Gran # (Auto) (0.00-0.02) K/uL PT (9.0-12.0) Seconds INR (0.9-1.1) APTT (21.0-31.0) Seconds PTT Ratio Sodium (136-145) mmol/L Potassium (3.5-5.1) mmol/L Chloride (98-107) mmol/L Carbon Dioxide (21-32) mmol/L Anion Gap (3-11) BUN (6-23) mg/dl Creatinine (0.6-1.4) mg/dl Est Cr Clr Drug Dosing ml/min Est GFR ( Amer) ml/min Est GFR (Non-Af Amer) ml/min BUN/Creatinine Ratio (10-20) Glucose (70-99(Fasting)) mg/dl Calcium (8.5-10.1) mg/dl Magnesium (1.7-2.4) mg/dl Total Bilirubin (0.2-1.0) mg/dl AST (13-39) U/L ALT (7-52) U/L Alkaline Phosphatase (34-104) U/L Total Protein (6.0-8.3) gm/dl Albumin (3.4-5.0) gm/dl Globulin (2.5-4.0) gm/dl Albumin/Globulin Ratio (0.9-2) Lipase (11-82) U/L Fluid Neutrophils % % Fluid Lymphocytes % % Fluid Meso/Macro/[place] % % Fluid Comment Peritoneal Color Peritoneal Appearance Peritoneal WBC (0-300) /ul Peritoneal RBC /uL Peritoneal Tot Protein gm/dl Peritoneal Albumin < 1.5 gm/dl SARS-CoV-2, RNA, NAAT NEGATIVE (NEGATIVE) Imaging Data Radiologist's Impression: Chest X-Ray 06/19/22 13:37 XR chest 1V portable HISTORY: 81 years-old Male SOB acute shortness of breath COMPARISON: Chest radiograph 04/19/2022 TECHNIQUE: Portable AP view of the chest FINDINGS: Cardiac silhouette is upper limits of normal in size. Prior median sternotomy with CABG. Left subclavian pacer/AICD. Right subclavian [id number] catheter distal tip is noted within the expected location of the upper SVC. Moderate hemidiaphragmatic elevation. No pneumothorax, large pleural effusion or overt pulmonary edema. Chronic interstitial coarsening. Degenerative changes of the shoulders and spine. Healed chronic left-sided rib fractures. IMPRESSION: No acute process. ACT 112: Negative or not required by law. The above report was generated using voice recognition software. It may contain grammatical, syntax or spelling errors. Electronically signed by: Marquis Cullen M.D. 06/19/2022 4:37 PM Abdomen/Pelvis CT 06/19/22 16:[address] WITHOUT CONTRAST CT DOSE: 748.63 mGy.cm HISTORY: Abdominal pelvic ascites. new ascites ro mets from testicular ca TECHNIQUE: Multiaxial CT images of the abdomen and pelvis were performed without contrast. A dose lowering technique was utilized adhering to the principles of ALARA. COMPARISON STUDY: Head CT 03/29/2022, CT abdomen and pelvis 01/13/2022 FINDINGS: Cardiomegaly with partially imaged pacer leads. Coronary artery calcifications. Trace right pleural effusion. Subsegmental patchy opacities of the right middle lobe with additional bibasilar atelectasis/scarring. No pneumatosis or pneumoperitoneum. Unremarkable spleen. Mildly atrophic pancreas with scattered punctate calcifications suggestive of chronic pancreatitis. Unremarkable adrenal glands. The visualized gallbladder is unremarkable. Hyperattenuation of the liver, [place] of 80. Mild marginal nodularity of the liver. Unchanged 1.2 cm hy podense No hepatic mass identified. 1.7 cm cyst within the inferior pole right kidney with layering milk of calcium. 4 mm nonobstructing calculus of the inferior pole left kidney. No ureteral calculi or hydronephrosis. Atherosclerosis of the aorta without aneurysm. Mild retroperitoneal soft tissue thickening at the site of the previously noted pathologic lymphadenopathy appears stable. There is no new or progressive lymphadenopathy identified. Study is limited without the use of contrast. Small hiatal hernia. Wall thickening of the mid to distal stomach with partial d istention. No bowel obstruction. Wall thickening is noted involving several loops of small bowel. Colonic diverticulosis. Noninflamed appendix. Moderate abdominal pelvic ascites has progressed from the prior studies. Mild generalized body wall edema. Healed chronic rib fractures are again noted. Gynecomastia. No destructive osteoblastic or osteolytic skeletal lesions identified. IMPRESSION: 1. Hyperattenuation of the liver redemonstrated which may represent sequela of prior drug toxicity, copper or iron deposition. Additionally, there is evidence of cirrhosis with worsened abdominal pelvic ascites. Trace right pleural effusion with body wall edema. 2. No bowel obstruction or pneumoperitoneum. 3. Wall thickening involving several loops of small bowel is likely secondary to the patient's edematous state. A nonspecific enteritis appear similarly. 4. Persistent soft tissue thickening within the area of the previously described retroperitoneal mass/lymphadenopathy. No new or progressive lymphadenopathy identified. 5. Additional findings as above. ACT 112: Negative or not required by law. The above report was generated using voice recognition software. It may contain grammatical, syntax or spelling errors. Electronically signed by: Marquis Cullen M.D. 06/19/2022 6:[address] 06/19/22 16:42 CT chest diagnostic wo con CT DOSE: HISTORY: ro mets from testicular cancer TECHNIQUE: Multiaxial CT images of the chest were performed without contrast. A dose lowering technique was utilized adhering to the principles of ALARA. COMPARISON: Chest CT 10/25/2021. FINDINGS: Biapical calcified pleural-parenchymal scarlike densities are again noted. Stable 3 mm nodule within the right lung apex image 45. Stable 3 mm subpleural nodule within the left lower lobe on image 96 abutting the major fissure. No new or suspicious pulmonary nodules identified. Small patchy groundglass and nodular densities within the right lower lobe and right middle lobe which are new from the prior study. This favors a pneumonia. Interstitial thickening at the lung bases is likely chronic. This is similar to the prior study. The central airways are patent. No pneumothorax. Trace right pleural effusion. Normal thyroid gland. There is left-sided pacemaker and a right subclavian Port-A-Cath which terminates at the SVC. Mild body wall edema and bilateral gynecomastia again noted. Please refer to same day abdomen and pelvis CT for further evaluation of the abdominal structures. Ascites noted within the upper abdomen. No mediastinal or hilar lymphadenopathy. Normal caliber esophagus. Normal caliber thoracic aorta. The heart is normal in size. No pericardial effusion. No suspicious lytic or blastic osseous lesions. Old, healed left-sided rib fractures are again noted. There are poststernotomy change s. IMPRESSION: 1. No evidence for metastatic disease within the chest. 2. Small patchy groundglass and nodular densities within the right lower lobe and right middle lobe which is new from the prior study. This favors a pneumonia. 3. Please refer the same day abdomen and pelvis CT for further evaluation of the abdominal structures. ACT 112: Negative or not required by law. Electronically signed by: Jhoan Alvarez M.D. 06/19/2022 5:56 PM [facility] Narrative 1449: The patient was evaluated in room A4. A complete history and physical exam was performed Cardiac monitoring: An order was placed for continuous cardiac monitoring. The monitor shows a rate of 60 with sinus rhythm 1640: Vital signs stable. Labs within normal limits with the exception of potassium 3.3. Creatinine at baseline. Paracentesis was performed, see procedu re note. 4 L of straw-colored fluid was removed. The fluid did not look cloudy purulent and did not look infected. Given this, there was concern that the patient's ascites could represent new malignancy. Discussed the case with oncology Dr. Morris she agrees that this could be a possibility. He recommends a CT of the chest and abdomen to rule out metastasis and recurrence of malignancy. Given the patient's creatinine and history of CKD she is okay with CT of the chest and abdomen being performed without contrast. She states that if there is no evidence of SBP the patient can be discharged and follow-up with her outpatient. 1915: Vital signs stable. Ascitic fluid is not concerning for SBP. CT of the chest shows possible right-sided pneumonia. CT of the abdomen shows hypoattenuation of the liver which may represent sequela of prior drug toxicity copper or iron deposition. There is evidence of cirrhosis with worsened abdominal pelvic ascites. Discussed the case with GI on-call Dr. Londono. He recommends getting a albumin on the ascitic fluid though sent down. He states to start the patient on Lasix 20 mg daily and spironolactone 50 mg daily and that he can follow-up with him in the next week in the outpatient setting no need for admission. Discussed the case with the patient and at bedside and they are in agreement. First dose of spironolactone and Lasix given in the emergency department. Potassium repleted in the emergency department. Patient be treated with doxycycline for the possible pneumonia seen on CT imaging. DISCHARGE - Plan of care discussed with patient and questions answered. The patient was given both verbal and printed discharge instructions. The patient verbalized understanding and ability to comply. The patient is to seek outpatient follow up as noted in the discharge instructions. The patient verbalized understanding and ability to comply. The patient is discharged in stable condition. The patient was instructed to return for worsening symptoms. 1945: At the time of discharge the states she does not feel comfortable taking the patient home as he is increasingly weak and they have lots of stairs in their house and she is asking if the patient could be admitted to the hospital overnight. Discussed the case with Dr. Zia Torres hospitalist will evaluate the patient for admission. Impression & Plan Ascites, Chronic renal failure, stage 3b, Pneumonia Discharge Plan Visit Data Chief Complaint: Abdominal Pain Stated Complaint: ABDOMINAL PAIN ED Provider: Tremaine Murray Discharge Problem: Ascites, Chronic renal failure, stage 3b, Pneumonia Patient Disposition: Being Evaluated by Hospitalist
[2022-06-19] MEDS ORDERED: ONDANSETRON INJ 2 MG/ML 2 ML VIAL IV PRN (22:07)
[2022-06-19] MEDS ORDERED: AZITHROMYCIN 500 MG in DEXTROSE 5% 250 ML IV STA (22:07)
[2022-06-19] MEDS: cefTRIAXone SODIUM 1,000 MG in DEXTROSE 5% 50 ML IV SCH (22:55)
[2022-06-19] MEDS: ENOXAPARIN INJ 40 MG/0.4 ML SYR SQ SCH (23:20)
[2022-06-20] MEDS ORDERED: INFLUENZA VACCINE HIGH DOSE PF 65+ 0.7 ML SYR IM ONE (00:04)
[2022-06-20] MEDS ORDERED: CARBOHYDRATES FOR HYPOGLYCEMIA PO PRN (03:38)
[2022-06-20] MEDS ORDERED: GLUCOSE 10 TAB/TUBE PO PRN (03:38)
[2022-06-20] MEDS ORDERED: GLUCOSE 40% GEL 15 GM TUBE PO PRN (03:38)
[2022-06-20] MEDS ORDERED: GLUCAGON FOR INJ 1 MG VIAL SQ PRN (03:38)
[2022-06-20] MEDS ORDERED: DEXTROSE 50% 50 ML SYRINGE IV PRN (03:38)
[2022-06-20 06:33] LABS: Hematocrit (blood only) 33.2 % (40.1-51.0); Hemoglobin 11.2 g/dl (14.0-18.0); Mean Corpuscular Hemoglobin 32.1 pg (25.0-34.0); Mean Corpuscular Hgb Conc 33.7 g/dL (32.0-36.0); Mean Corpuscular Volume 95.1 fL (80.0-100.0); Mean Platelet Volume 12.4 fL (9.4-12.4); Platelet Count 100 K/uL (130-400); RDW Coefficient of Variation 16.9 % (11.5-14.5); RDW Standard Deviation 59.1 fL (36.4-46.3); Red Blood Count 3.49 M/uL (4.63-6.08); White Blood Count 4.15 K/ul (4.8-10.8)
[2022-06-20 06:37] LABS: BUN Creatinine Ratio 16.8 (10-20); Creatinine Clr Calc Pharmacy 46.6 ml/min; Est GFR (African American) 59.2 ml/min; Est GFR (Non-African American) 51.1 ml/min; Potassium 3.5 mmol/L (3.5-5.1)
[2022-06-20] MEDS: AMIODARONE 200 MG TAB PO SCH ×2 (08:59→18:10)
[2022-06-20] MEDS: carvediloL 12.5 MG TAB PO SCH ×2 (08:59→20:09)
[2022-06-20] MEDS ORDERED: FUROSEMIDE 20 MG TAB PO SCH (09:00)
[2022-06-20] MEDS: ASPIRIN 81 MG ECTAB PO SCH (09:00)
[2022-06-20] MEDS: INSULIN ASPART PER UNIT SC SCH ×4 (09:38→21:25)
--- NOTE | 2022-06-20 13:23 | Hospitalist Progress Note ---
Date of Service June 20, 2022 Assessment & Plan (1) Ascites: Plan: 81-year-old male with history of metastatic testicular cancer presenting with progressive abdominal pain and distention. Found to have large amount of ascites which was removed via paracentesis in the ER. Cytology sent and is pending Peritoneal fluid albumin level <1.5 Continue Lasix and spironolactone - Believe accumulation of acites is secondary to metastatic disease (2) Weakness: Plan: Progressive weakness over the last several months Possibly secondary to chronic illness PT/OT evaluation-recommending rehab - Case management following to assist in d/c planning and make referrals (3) Pneumonia: Plan: CT of the chest with small patchy groundglass and nodular densities within the right lower lobe and right middle lobe which is new from prior study. Favoring pneumonia. Patient is afebrile, nontoxic in appearance Ceftriaxone and azithromycin for now Monitor clinically - Duonebs PRN - Not requiring O2 (4) Atrial flutter: Plan: Patient with history of atrial flutter. Presently in sinus rhythm Continue amiodarone 200 mg p.o. twice daily Continue carvedilol Continue to monitor (5) Diabetes mellitus: Plan: Chronic. Blood sugar = 193 at present. Last hemoglobin A1c on 04/20/2022 = 5.1% Insulin sliding scale, acchuchecks AC and HS (6) Chronic kidney disease, stage III (moderate): Plan: Renal function at baseline Avoid nephrotoxic agents and monitor (7) CAD (coronary atherosclerotic disease): Plan: Chronic. Stable. 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 Given progressive decline, believe that this is appropriate. CM consulted to assist in dc planning. Referral made to [facility]. Medically stable for dc there if they should accept pt. Plan d/w Dr. Moy. Fu rther orders as warranted. Admission and Anticipated Discharge Date Admission Date: June 19, 2022 Subjective Patient seen on daily rounds this morning. Reports feeling better since removal of fluid from his abdomen. Denies abd pain, fever, chills, cough, dyspnea, cp. Therapy evaluated patient and feels that he will likely need rehab. Review of Systems Review of Systems: All systems reviewed and are unremarkable except as noted in HPI and below. +progressive generalized weakness Denies fever, chills, fatigue, headache, nasal congestion, sore throat, cough, chest pain, shortness of breath, palpitations, orthopnea, PND, abdominal pain, n/v/d, constipation, dysuria, hematuria, frequency, back pain, joint pain or swelling, easy bruising or bleeding, skin lesions or rashes. Physical Exam Physical Exam: GENERAL: 81 yo well developed but thin WM. NAD. LUNGS: Clear to auscultation bilaterally. No W/R/R. CARDIOVASCULAR: Regular rate and rhythm. No M/G/R. No JVD. ABDOMEN: Soft, non-tender and non-distended. No palpable masses. Bowel sounds normoactive x 4 quad. EXTREMITIES: No edema. Non-tender. Peripheral pulses +2/4. NEUROLOGIC: A&O x3. Nonfocal PSYCHIATRIC: Cooperative. Appropriate mood and affect. SKIN: Warm, dry, intact. No rashes or lesions. Results & Data Results & Data ([facility]) Vital Signs (Past 12 Hours) Vital Signs Temp Pulse Resp BP Pulse Ox O2 Del Method 06/20/22 09:41 Room Air 06/20/22 08:18 36.4 C L 60 16 110/64 100 Room Air Laboratory Results 06/20/22 05:47 06/20/22 05:47 PG Care Time/CCT Total # of Minutes Spent Total Time Spent with Patient: Total time spent is greater than 50% in coordination of care (as documented) at patient's floor/unit and/or counseling patient: Coding Level of Care Code 93711 Subseq Hosp Care Lvl 2 Diagnoses Ascites R18.8 Weakness R53.1 Pneumonia J18.9 Atrial flutter I48.3 Atrial flutter type: typical Diabetes mellitus E11.22; N18.3 Chronic kidney disease stage: stage 3 (moderate) Diabetes mellitus complication detail: with chronic kidney disease Diabetes mellitus complication status: with kidney complications Diabetes mellitus oxygen therapist insulin use: without oxygen therapist use Diabetes mellitus type: type 2 Chronic kidney disease, stage III (moderate) N18.3 CAD (coronary atherosclerotic disease) I25.10 Germ cell cancer C80.1 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
[2022-06-20] MEDS: AZITHROMYCIN 250 MG in DEXTROSE 5% 250 ML IV SCH (20:05)
[2022-06-20] MEDS: TAMSULOSIN HCL 0.4 MG CAP PO SCH (20:09)
[2022-06-20] MEDS: MIRTAZAPINE TAB 15 MG TAB PO SCH (20:09)
[2022-06-20] MEDS: cefTRIAXone SODIUM 1,000 MG in DEXTROSE 5% 50 ML IV SCH (22:13)
[2022-06-20] MEDS: ENOXAPARIN INJ 40 MG/0.4 ML SYR SQ SCH (22:14)
[2022-06-20] MEDS: HEPARIN 100 UNIT/ML 5ML FLUSH FLUSH PRN (22:51)
[2022-06-21] MEDS: carvediloL 12.5 MG TAB PO SCH ×2 (08:09→21:15)
[2022-06-21] MEDS: ASPIRIN 81 MG ECTAB PO SCH (08:10)
--- NOTE | 2022-06-21 08:38 | Hospitalist Progress Note ---
Date of Service June 21, 2022 Assessment & Plan (1) Ascites: Plan: 81-year-old male with history of metastatic testicular cancer presenting with progressive abdominal pain and distention. Found to have large amount of ascites which was removed via paracentesis in the ER. Paracentesis performed with 4L ascitis fluid removed, WBC 71 Cytology sent -- without evidence for malignancy Had completed 4 cycles of chemo in the summer recent PET scan with improvement in lymphadenopathy, discussed with Dr Morris Patient did have marked ascites on PET scan, only recently placed on lasix, not been on spironolactone Of note, patient states was on 40mg Lasix daily, recently decreased to 20mg daily Had not gotten since admission, ordered for this evening with PO KCl supplementation On admission was to be ordered lasix and spironolactone -- patient does admit lasix but NEVER taken spironolactone Resumed lasix 20mg daily, consider increasing back to 40mg vs addition low dose aldactone given ascites Portal US without evidence for obstruction as done in patient without evidence for liver mets on imaging noted cirrhosis and ascites, NO OBSTRUCTION Of note, patient with infected dental implant earlier in summer, surgery with Dr Zuniga Has been on Augmentin -- can have been completed after today (switched ceftriaxone to augmentin for anareobic coverage given prior office cx enterococcus and on Keflex outpatient) Prior blood cultures 1/2 coag neg staph not michael, given weaknes/ascites repeated blood cultures and can f/u outpatient. remains afebrile will also ask wound RN to see about the R groin wound Denies diarrhea, however with multiple recent abx would need to monitor --> did send rx for Dificid last admission for diarrhea with +gene but negative toxin (2) Cirrhosis: Plan: noted mod-marked abdominal and pelvic ascites on March PET scan LFTs wnl s/p paracentesis for 4L as above, cytology negative for malignancy Portal vein US obtained as no prior hx cirrhosis reported however CTA/P does note evidence for cirrhosis with worsened abdominal pelvic ascites. trace right pleural effusion with body wall edema Resumed Lasix, consider increased dose to 40mg but will add 12.5mg Aldactone for now and monitor (3) Weakness: Plan: Progressive weakness over the last several months, likely 2nd to development of ascites and chronic illness/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 from recent chemo this summer Abx for pneumonia as outlined below resume lasix, consider adding aldactone PT/OT rec rehab --> [facility] possibly tomorrow (4) Pneumonia: Plan: CT of the chest with small patchy groundglass and nodular densities within the right lower lobe and right middle lobe which is new from prior study. Favoring pneumonia. Patient is afebrile, nontoxic in appearance Placed on Ceftriaxone/Azithro Complete 5 days azithro switched from rocephin to Augmentin for better anaerobic coverage (complete 7-10 day course) Pleural fluid did not seem infected, no need for coverage of SBP Breathing stable, on room air Duonebs prn (5) Atrial flutter: Plan: Patient with history of atrial flutter. Presently in sinus rhythm Continue amiodarone 200 mg p.o. twice daily Continue carvedilol Continue to monitor (6) Diabetes mellitus: Plan: Chronic. Blood sugar = 193 at present. Last hemoglobin A1c on 04/20/2022 = 5.1% Insulin sliding scale, acchuchecks AC and HS (7) Chronic kidney disease, stage III (moderate): Plan: Renal function at baseline Avoid nephrotoxic agents and monitor (8) CAD (coronary atherosclerotic disease): Plan: Chronic. Stable. 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 Will have Dr Zuniga see patient. had been getting 4 cycles of chemo therapy, recent PET scan in April negative per patient and on yearly surveillance. Follows [facility], will reach out. Admit with ascites, had been on Lasix 40mg daily, on 20mg recently up until he was admitted, which he states he has not gotten any more Lasix since then. Was hopeful for rehab today, discussed checking portal US for completeness but will plan for rehab tomorrow once everything arranged. Review of Systems Review of Systems: All systems reviewed & are unremarkable except as noted in HPI & below Physical Exam Physical Exam: General: chronicall ill appearing male sitting up in bed, NAD HEENT; head normocephalic, atraumatic, mmm, trachea midline without deviation poor dentition, prior dental extraction noted, nonpainful on palpation Resp: CTAB, on room air CV: RRR, trace pitting edema, no calf tenderness GI: +BS, distension, non-tender, +ascites : no lovelace MSK/Neuro: moves all extremities, no focal deficits Skin: ulceration to R groin, covered with bandaid Results & Data Results & Data ([facility]) Vital Signs (Past 12 Hours) Vital Signs Temp Pulse Resp BP BP Pulse Ox O2 Del Method 06/21/22 07:30 36.5 C 54 L 18 137/76 99 Room Air 06/20/22 21:43 36.5 C 61 18 109/61 97 Room Air Laboratory Results 06/21/22 06/21/22 06/21/22 Range/Units 17:05 11:52 08:44 WBC (4.8-10.8) K/ul RBC (4.63-6.08) M/uL Hgb (14.0-18.0) g/dl Hct (40.1-51.0) % MCV (80.0-100.0) fL MCH (25.0-34.0) pg MCHC (32.0-36.0) g/dL RDW Std Deviation (36.4-46.3) fL RDW Coeff of David (11.5-14.5) % Plt Count (130-400) K/uL MPV (9.4-12.4) fL Immature Gran % (Auto) % Neut % (Auto) % Lymph % (Auto) % Williamson % (Auto) % Eos % (Auto) % Baso % (Auto) % Neut # (Auto) (1.4-6.5) K/uL Lymph # (Auto) (1.2-3.4) K/uL Williamson # (Auto) (0.24-0.82) K/uL Eos # (Auto) (0-0.50) K/uL Baso # (Auto) (0-0.2) K/uL Immature Gran # (Auto) (0.00-0.02) K/uL Polychromasia Echinocytes Acanthocytes (Spur) Sodium (136-145) mmol/L Potassium (3.5-5.1) mmol/L Chloride (98-107) mmol/L Carbon Dioxide (21-32) mmol/L Anion Gap (3-11) BUN (6-23) mg/dl Creatinine (0.6-1.4) mg/dl Est Cr Clr Drug Dosing ml/min Est GFR ( Amer) ml/min Est GFR (Non-Af Amer) ml/min BUN/Creatinine Ratio (10-20) Glucose (70-99(Fasting)) mg/dl POC Glucose 107 H 143 H (70-99) mg/dl Calcium (8.5-10.1) mg/dl Magnesium (1.7-2.4) mg/dl Total Bilirubin (0.2-1.0) mg/dl AST (13-39) U/L ALT (7-52) U/L Alkaline Phosphatase (34-104) U/L Total Protein (6.0-8.3) gm/dl Albumin (3.4-5.0) gm/dl Globulin (2.5-4.0) gm/dl Albumin/Globulin Ratio (0.9-2) TSH 3.738 (0.300-4.500) uIu/ml 06/21/22 06/21/22 06/21/22 Range/Units 08:44 08:44 08:01 WBC 3.66 L (4.8-10.8) K/ul RBC 3.83 L (4.63-6.08) M/uL Hgb 12.1 L (14.0-18.0) g/dl Hct 37.1 L (40.1-51.0) % MCV 96.9 (80.0-100.0) fL MCH 31.6 (25.0-34.0) pg MCHC 32.6 (32.0-36.0) g/dL RDW Std Deviation 58.8 H (36.4-46.3) fL RDW Coeff of David 16.7 H (11.5-14.5) % Plt Count 102 L (130-400) K/uL MPV 13.3 H (9.4-12.4) fL Immature Gran % (Auto) 0.3 % Neut % (Auto) 57.2 % Lymph % (Auto) 27.0 % Williamson % (Auto) 13.4 % Eos % (Auto) 1.6 % Baso % (Auto) 0.5 % Neut # (Auto) 2.09 (1.4-6.5) K/uL Lymph # (Auto) 0.99 L (1.2-3.4) K/uL Williamson # (Auto) 0.49 (0.24-0.82) K/uL Eos # (Auto) 0.06 (0-0.50) K/uL Baso # (Auto) 0.02 (0-0.2) K/uL Immature Gran # (Auto) 0.01 (0.00-0.02) K/uL Polychromasia 1+ Echinocytes 2+ Acanthocytes (Spur) 2+ Sodium 137 (136-145) mmol/L Potassium 3.5 (3.5-5.1) mmol/L Chloride 106 (98-107) mmol/L Carbon Dioxide 24 (21-32) mmol/L Anion Gap 7 (3-11) BUN 20 (6-23) mg/dl Creatinine 1.28 (0.6-1.4) mg/dl Est Cr Clr Drug Dosing 47.7 ml/min Est GFR ( Amer) 60.9 ml/min Est GFR (Non-Af Amer) 52.5 ml/min BUN/Creatinine Ratio 15.6 (10-20) Glucose 168 H (70-99(Fasting)) mg/dl POC Glucose 113 H (70-99) mg/dl Calcium 8.1 L (8.5-10.1) mg/dl Magnesium 1.9 (1.7-2.4) mg/dl Total Bilirubin 0.7 (0.2-1.0) mg/dl AST 18 (13-39) U/L ALT 10 (7-52) U/L Alkaline Phosphatase 71 (34-104) U/L Total Protein 6.1 (6.0-8.3) gm/dl Albumin 2.6 L (3.4-5.0) gm/dl Globulin 3.5 (2.5-4.0) gm/dl Albumin/Globulin Ratio 0.7 L (0.9-2) TSH (0.300-4.500) uIu/ml 06/20/22 Range/Units 20:50 WBC (4.8-10.8) K/ul RBC (4.63-6.08) M/uL Hgb (14.0-18.0) g/dl Hct (40.1-51.0) % MCV (80.0-100.0) fL MCH (25.0-34.0) pg MCHC (32.0-36.0) g/dL RDW Std Deviation (36.4-46.3) fL RDW Coeff of David (11.5-14.5) % Plt Count (130-400) K/uL MPV (9.4-12.4) fL Immature Gran % (Auto) % Neut % (Auto) % Lymph % (Auto) % Williamson % (Auto) % Eos % (Auto) % Baso % (Auto) % Neut # (Auto) (1.4-6.5) K/uL Lymph # (Auto) (1.2-3.4) K/uL Williamson # (Auto) (0.24-0.82) K/uL Eos # (Auto) (0-0.50) K/uL Baso # (Auto) (0-0.2) K/uL Immature Gran # (Auto) (0.00-0.02) K/uL Polychromasia Echinocytes Acanthocytes (Spur) Sodium (136-145) mmol/L Potassium (3.5-5.1) mmol/L Chloride (98-107) mmol/L Carbon Dioxide (21-32) mmol/L Anion Gap (3-11) BUN (6-23) mg/dl Creatinine (0.6-1.4) mg/dl Est Cr Clr Drug Dosing ml/min Est GFR ( Amer) ml/min Est GFR (Non-Af Amer) ml/min BUN/Creatinine Ratio (10-20) Glucose (70-99(Fasting)) mg/dl POC Glucose 153 H (70-99) mg/dl Calcium (8.5-10.1) mg/dl Magnesium (1.7-2.4) mg/dl Total Bilirubin (0.2-1.0) mg/dl AST (13-39) U/L ALT (7-52) U/L Alkaline Phosphatase (34-104) U/L Total Protein (6.0-8.3) gm/dl Albumin (3.4-5.0) gm/dl Globulin (2.5-4.0) gm/dl Albumin/Globulin Ratio (0.9-2) TSH (0.300-4.500) uIu/ml Diagnostic Findings Portal Vein US 06/21/22 09:06 US duplex portal hepatic veins HISTORY: 81 years-old Male ascites, ?cause ascites with testicular carcinoma COMPARISON: CT abdomen and pelvis 06/19/2022 TECHNIQUE: Multiple real-time sonographic images of the hepatic vasculature was obtained assessing grayscale appearance, color and spectral flow FINDINGS: Cirrhotic morphology of the liver. No hepatic mass identified. Abdominal ascites. Patency of the hepatic and portal veins. Hepatopedal flow within the portal vein. IMPRESSION: 1. Cirrhosis with ascites. 2. Patency of the hepatic and portal veins. ACT 112: Negative or not required by law. The above report was generated using voice recognition software. It may contain grammatical, syntax or spelling errors. Electronically signed by: Marquis Cullen M.D. 06/21/2022 1:35 PM PG Care Time/CCT Total # of Minutes Spent Total Time Spent with Patient: Total time spent is greater than 50% in coordination of care (as documented) at patient's floor/unit and/or counseling patient: Coding Level of Care Code 37335 Subseq Hosp Care Lvl 3 Diagnoses Ascites R18.8 Cirrhosis K74.60 Weakness R53.1 Pneumonia J18.9 Atrial flutter I48.3 Atrial flutter type: typical Diabetes mellitus E11.22; N18.3 Chronic kidney disease stage: stage 3 (moderate) Diabetes mellitus complication detail: with chronic kidney disease Diabetes mellitus complication status: with kidney complications Diabetes mellitus usp insulin use: without usp use Diabetes mellitus type: type 2 Chronic kidney disease, stage III (moderate) N18.3 CAD (coronary atherosclerotic disease) I25.10 Germ cell cancer C80.1 Pancytopenia due to antineoplastic chemotherapy D61.810; T45.1X5A (1) Diabetes mellitus Chronic kidney disease stage: stage 3 (moderate) Diabetes mellitus complication detail: with chronic kidney disease Diabetes mellitus complication status: with kidney complications Diabetes mellitus usp insulin use: without termite exterminator helper use Diabetes mellitus type: type 2 Qualified Code(s): E11.22 - Type 2 diabetes mellitus with diabetic chronic kidney disease; N18.3 - Chronic kidney disease, stage 3 (moderate) (2) Atrial flutter Atrial flutter type: typical Qualified Code(s): I48.3 - Typical atrial flutter
[2022-06-21] MEDS: AMIODARONE 200 MG TAB PO SCH ×2 (09:03→17:24)
[2022-06-21 09:20] LABS: Hematocrit (blood only) 37.1 % (40.1-51.0); Hemoglobin 12.1 g/dl (14.0-18.0); White Blood Count 3.66 K/ul (4.8-10.8)
[2022-06-21] MEDS: INSULIN ASPART PER UNIT SC SCH ×4 (09:35→21:15)
[2022-06-21 09:42] LABS: Mean Corpuscular Hemoglobin 31.6 pg (25.0-34.0); Mean Corpuscular Hgb Conc 32.6 g/dL (32.0-36.0); Mean Corpuscular Volume 96.9 fL (80.0-100.0); Mean Platelet Volume 13.3 fL (9.4-12.4); Platelet Count 102 K/uL (130-400); RDW Coefficient of Variation 16.7 % (11.5-14.5); RDW Standard Deviation 58.8 fL (36.4-46.3); Red Blood Count 3.83 M/uL (4.63-6.08)
[2022-06-21 09:51] LABS: Albumin Globulin Ratio 0.7 (0.9-2); Albumin Level 2.6 gm/dl (3.4-5.0); BUN Creatinine Ratio 15.6 (10-20); Bilirubin,Total 0.7 mg/dl (0.2-1.0); Calcium 8.1 mg/dl (8.5-10.1); Creatinine Clr Calc Pharmacy 47.7 ml/min; Est GFR (African American) 60.9 ml/min; Est GFR (Non-African American) 52.5 ml/min; Globulin 3.5 gm/dl (2.5-4.0); Magnesium 1.9 mg/dl (1.7-2.4); Potassium 3.5 mmol/L (3.5-5.1); Total Protein 6.1 gm/dl (6.0-8.3)
[2022-06-21 10:34] LABS: Acanthocytes 2+; Basophils # (auto) 0.02 K/uL (0-0.2); Basophils % (auto) 0.5 %; Echinocytes 2+; Eosinophils # (auto) 0.06 K/uL (0-0.50); Eosinophils % (auto) 1.6 %; Immature Granulocytes # (auto) 0.01 K/uL (0.00-0.02); Immature Granulocytes % (auto) 0.3 %; Lymphocytes # (auto) 0.99 K/uL (1.2-3.4); Monocytes # (auto) 0.49 K/uL (0.24-0.82); Monocytes % (auto) 13.4 %; Neutrophils # (auto) 2.09 K/uL (1.4-6.5); Neutrophils % (auto) 57.2 %; Polychromasia 1+
--- NOTE | 2022-06-21 13:37 | Ultrasound Report ---
US duplex portal hepatic veins HISTORY: 81 years-old Male ascites, ?cause ascites with testicular carcinoma COMPARISON: CT abdomen and pelvis 06/19/2022 TECHNIQUE: Multiple real-time sonographic images of the hepatic vasculature was obtained assessing gr ayscale appearance, color and spectral flow FINDINGS: Cirrhotic morphology of the liver. No hepatic mass identified. Abdominal ascites. Patency of the hepa tic and portal veins. Hepatopedal flow within the portal vein. IMPRESSION: 1. Cirrhosis with ascites. 2. Patency of the hepatic and portal veins. ACT 112: Negative or not required by law. The above report was generated using voice recognition software. It may contain grammatical, syntax o r spelling errors. Electronically signed by: Marquis Cullen M.D. 06/21/2022 1:35 PM
[2022-06-21] MEDS: POTASSIUM CHLORIDE 10 MEQ TABCR PO SCH (15:25)
[2022-06-21] MEDS: FUROSEMIDE 20 MG TAB PO SCH (15:26)
[2022-06-21] MEDS: AMOXICILLIN/CLAVULANATE 875 MG TAB PO SCH (17:24)
[2022-06-21] MEDS: SPIRONOLACTONE 12.5 MG TAB PO SCH (20:09)
[2022-06-21] MEDS: AZITHROMYCIN 250 MG in DEXTROSE 5% 250 ML IV SCH (20:10)
[2022-06-21] MEDS: MIRTAZAPINE TAB 15 MG TAB PO SCH (21:15)
[2022-06-21] MEDS: TAMSULOSIN HCL 0.4 MG CAP PO SCH (21:15)
[2022-06-21] MEDS: ENOXAPARIN INJ 40 MG/0.4 ML SYR SQ SCH (22:24)
[2022-06-22] MEDS: HEPARIN 100 UNIT/ML 5ML FLUSH FLUSH PRN (07:25)
[2022-06-22] MEDS: AMOXICILLIN/CLAVULANATE 875 MG TAB PO SCH ×2 (07:32→17:38)
[2022-06-22] MEDS: AMIODARONE 200 MG TAB PO SCH ×2 (07:32→17:25)
[2022-06-22] MEDS: ASPIRIN 81 MG ECTAB PO SCH (07:32)
[2022-06-22] MEDS: carvediloL 12.5 MG TAB PO SCH ×2 (07:32→20:51)
[2022-06-22] MEDS: POTASSIUM CHLORIDE 10 MEQ TABCR PO SCH (07:32)
[2022-06-22] MEDS: SPIRONOLACTONE 12.5 MG TAB PO SCH (07:32)
[2022-06-22] MEDS: FUROSEMIDE 20 MG TAB PO SCH (07:32)
[2022-06-22 08:02] LABS: Albumin Globulin Ratio 0.9 (0.9-2); Albumin Level 2.4 gm/dl (3.4-5.0); BUN Creatinine Ratio 18.5 (10-20); Bilirubin,Total 0.6 mg/dl (0.2-1.0); Calcium 7.5 mg/dl (8.5-10.1); Creatinine Clr Calc Pharmacy 49.2 ml/min; Est GFR (African American) 63.2 ml/min; Est GFR (Non-African American) 54.6 ml/min; Globulin 2.8 gm/dl (2.5-4.0); Magnesium 1.8 mg/dl (1.7-2.4); Potassium 3.2 mmol/L (3.5-5.1); Total Protein 5.2 gm/dl (6.0-8.3)
[2022-06-22 08:15] LABS: Hematocrit (blood only) 31.9 % (40.1-51.0); Hemoglobin 10.9 g/dl (14.0-18.0); Mean Corpuscular Hemoglobin 32.5 pg (25.0-34.0); Mean Corpuscular Hgb Conc 34.2 g/dL (32.0-36.0); Mean Corpuscular Volume 95.2 fL (80.0-100.0); Mean Platelet Volume 13.2 fL (9.4-12.4); Platelet Count 86 K/uL (130-400); Platelet Estimate Decreased (Normal); RDW Coefficient of Variation 16.5 % (11.5-14.5); RDW Standard Deviation 57.3 fL (36.4-46.3); Red Blood Count 3.35 M/uL (4.63-6.08); White Blood Count 3.51 K/ul (4.8-10.8)
[2022-06-22] MEDS ORDERED: POTASSIUM CHLORIDE CRTAB 20 MEQ TABCR PO STA (08:19)
--- NOTE | 2022-06-22 08:19 | Hospitalist Progress Note ---
Date of Service June 22, 2022 Assessment & Plan (1) Ascites: Plan: 81-year-old male with history of metastatic testicular cancer presenting with progressive abdominal pain and distention. Found to have large amount of ascites which was removed via paracentesis in the ER. Paracentesis performed with 4L ascitis fluid removed, WBC 71 Cytology sent -- without evidence for malignancy Had completed 4 cycles of chemo in the summer recent PET scan with improvement in lymphadenopathy, discussed with Dr Morris Patient did have marked ascites on PET scan, only recently placed on lasix, not been on spironolactone Of note, patient states was on 40mg Lasix daily, recently decreased to 20mg daily Had not gotten since admission, ordered for this evening with PO KCl supplementation On admission was to be ordered lasix and spironolactone -- patient does admit lasix but NEVER taken spironolactone Resumed lasix 20mg daily 06/21, consider increasing back to 40mg vs addition low dose aldactone given ascites Portal US without evidence for obstruction as done in patient without evidence for liver mets on imaging noted cirrhosis and ascites, NO OBSTRUCTION Of note, patient with infected dental implant earlier in summer, surgery with Dr Zuniga Has been on Augmentin -- can have been completed after today (switched ceftriaxone to augmentin for anareobic coverage given prior office cx enterococcus and on Keflex outpatient) Prior blood cultures /2 coag neg staph not michael, given weaknes/ascites repeated blood cultures and can f/u outpatient. remains afebrile will also ask wound RN to see about the R groin wound Denies diarrhea, however with multiple recent abx would need to monitor --> did send rx for Dificid last admission for diarrhea with +gene but negative toxin 06/22 reports improvement in appetite. Patient reports distention about the same, not any worse Resumed lasix 20mg last evening, started aldactone 12.5mg for abdominal distention/ascites Plan for additional 12.5mg Aldactone and continue 25mg po potassium supplementation ordered this morning for K 3.2 titrate up to 50mg over the next week if tolerated at [facility] Plans for d/c tomorrow to [facility] (2) Cirrhosis: Plan: noted mod-marked abdominal and pelvic ascites on March PET scan LFTs wnl s/p paracentesis for 4L as above, cytology negative for malignancy Portal vein US obtained as no prior hx cirrhosis reported however CTA/P does note evidence for cirrhosis with worsened abdominal pelvic ascites. trace right pleural effusion with body wall edema Resumed Lasix, consider increased dose to 40mg but will increase spironolactone as above for now and monitor continue titration outpatient as tolerated (3) Weakness: Plan: Progressive weakness over the last several months, likely 2nd to development of ascites and chronic illness/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 from recent chemo this summer 40lb weight loss, continued Abx for pneumonia as outlined below resume lasix, consider adding aldactone - increased to 25 mg daily Reporting improvement in weakness 06/22 Protein supplementation drinks per /PCP PT/OT rec rehab --> [facility] hopefully tomorrow (4) Pneumonia: Plan: CT of the chest with small patchy groundglass and nodular densities within the right lower lobe and right middle lobe which is new from prior study. Favoring pneumonia. Patient is afebrile, nontoxic in appearance Placed on Ceftriaxone/Azithro Complete 5 days azithro (day 3/5) switched from rocephin to Augmentin 06/21 for better anaerobic coverage (complete 7-10 day course) -- would continue through 06/26 Pleural fluid did not seem infected, no need for coverage of SBP Breathing stable, on room air some SOB -- improving. increased diuretics as above as well Duonebs prn (5) Atrial flutter: Plan: Patient with history of atrial flutter. Presently in sinus rhythm Continue amiodarone 200 mg p.o. twice daily, carvedilol (6) Diabetes mellitus: Plan: Chronic. Blood sugar = 193 at present. Last hemoglobin A1c on 04/20/2022 = 5.1% Insulin sliding scale, acchuchecks AC and HS BSgs acceptable (7) Chronic kidney disease, stage III (moderate): Plan: Renal function at baseline 1.24 Avoid nephrotoxic agents and monitor (8) CAD (coronary atherosclerotic disease): Plan: Chronic. Stable. 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 -- continue supplementation (11) Pressure ulcer: Plan: right hip, seen at PCP, cx enterococcus sensitive to PCNs also topical silver cream per PCP sleeps on that side c/w stage III pressure injury schedule for wound care f/u 06/28 also has scab to R knee and RLE (scabbed over, nonpainful, no drainage) suspect drainage/scabbing from excessive fluids/ascites swelling improved with addition of lasix/spironolactone as above Nonpainful on exam Augmentin for better anaerobic coverage wound rn consulted inpatient continue local wound care/follow up outpatient Plan continued inpatient stay continue lasix, increased dose spironolactone -- titrate at [facility] as tolerated hopefully d/c to [facility] tomorrow Admission and Anticipated Discharge Date Admission Date: June 19, 2022 Subjective Patient evalu this morning, at bedside. Seen by Dr Zuniga, doing great from oral standpoint. Breathing stable. Does endorse some shortness of breath at times but stable on room air. Less abdominal tightness as well as LE swelling. Discussed increasing the spironolactone as tolerated along with Lasix to prevent reaccumulation. No fever/chills, chest pain. No sputum production. Discussed cirrhosis on imaging, patient hasn't drink in over 15-20 years. Could be element of NELSON vs medication related from chemotherapy. Plans for [facility] later today but more comfortable waiting until tomorrow/increase spironolactone and monitor labs. She does note that his strength is improve and he does have a little better of an appetite. Will plan for [facility] tomorrow. They can continue to check labs/adjust medications as discussed. also brought in 20g drinks as recommended by PCP to help boost patient's stores. Questions/concerns addressed. Review of Systems Review of Systems: All systems reviewed & are unremarkable except as noted in HPI & below Physical Exam Physical Exam: General: chronically ill appearing male sitting up in bed, NAD HEENT; head normocephalic, atraumatic, mmm, trachea midline without deviation poor dentition, prior dental extraction noted, nonpainful on palpation no drainage Resp: CTAB, decreased in the bases, faint RLL crackles, 97% on RA CV: RRR, decreased pitting edema (almost completely resolved), no calf tenderness GI: +BS, distension, ascites (slightly less), non-tender, +ascites : no lovelace MSK/Neuro: moves all extremities, no focal deficits Skin: pressure ulcer to R groin, covered with band aid scab to R knee, scab also to anterior LLE rivas Results & Data Results & Data ([facility]) Vital Signs (Past 12 Hours) Vital Signs Temp Pulse Resp BP Pulse Ox O2 Del Method 06/22/22 07:31 36.4 C L 61 16 145/81 H 97 Room Air 06/21/22 23:13 36.5 C 62 18 128/72 99 Room Air 06/21/22 21:12 98/61 L Laboratory Results 06/22/22 06/22/22 06/21/22 Range/Units 07:18 07:18 20:57 WBC 3.51 L (4.8-10.8) K/ul RBC 3.35 L (4.63-6.08) M/uL Hgb 10.9 L (14.0-18.0) g/dl Hct 31.9 L (40.1-51.0) % MCV 95.2 (80.0-100.0) fL MCH 32.5 (25.0-34.0) pg MCHC 34.2 (32.0-36.0) g/dL RDW Std Deviation 57.3 H (36.4-46.3) fL RDW Coeff of David 16.5 H (11.5-14.5) % Plt Count 86 L (130-400) K/uL MPV 13.2 H (9.4-12.4) fL Immature Gran % (Auto) % Neut % (Auto) % Lymph % (Auto) % [place] % (Auto) % Eos % (Auto) % Baso % (Auto) % Neut # (Auto) (1.4-6.5) K/uL Lymph # (Auto) (1.2-3.4) K/uL [place] # (Auto) (0.24-0.82) K/uL Eos # (Auto) (0-0.50) K/uL Baso # (Auto) (0-0.2) K/uL Immature Gran # (Auto) (0.00-0.02) K/uL Platelet Estimate Decreased L (Normal) Polychromasia Echinocytes Acanthocytes (Spur) Sodium 135 L (136-145) mmol/L Potassium 3.2 L (3.5-5.1) mmol/L Chloride 105 (98-107) mmol/L Carbon Dioxide 24 (21-32) mmol/L Anion Gap 6 (3-11) BUN 23 (6-23) mg/dl Creatinine 1.24 (0.6-1.4) mg/dl Est Cr Clr Drug Dosing 49.2 ml/min Est GFR ( Amer) 63.2 ml/min Est GFR (Non-Af Amer) 54.6 ml/min BUN/Creatinine Ratio 18.5 (10-20) Glucose 120 H (70-99(Fasting)) mg/dl POC Glucose 142 H (70-99) mg/dl Calcium 7.5 L (8.5-10.1) mg/dl Magnesium 1.8 (1.7-2.4) mg/dl Total Bilirubin 0.6 (0.2-1.0) mg/dl AST 16 (13-39) U/L ALT 9 (7-52) U/L Alkaline Phosphatase 65 (34-104) U/L Total Protein 5.2 L (6.0-8.3) gm/dl Albumin 2.4 L (3.4-5.0) gm/dl Globulin 2.8 (2.5-4.0) gm/dl Albumin/Globulin Ratio 0.9 (0.9-2) TSH (0.300-4.500) uIu/ml 06/21/22 06/21/22 06/21/22 Range/Units 17:05 11:52 08:44 WBC (4.8-10.8) K/ul RBC (4.63-6.08) M/uL Hgb (14.0-18.0) g/dl Hct (40.1-51.0) % MCV (80.0-100.0) fL MCH (25.0-34.0) pg MCHC (32.0-36.0) g/dL RDW Std Deviation (36.4-46.3) fL RDW Coeff of David (11.5-14.5) % Plt Count (130-400) K/uL MPV (9.4-12.4) fL Immature Gran % (Auto) % Neut % (Auto) % Lymph % (Auto) % [place] % (Auto) % Eos % (Auto) % Baso % (Auto) % Neut # (Auto) (1.4-6.5) K/uL Lymph # (Auto) (1.2-3.4) K/uL [place] # (Auto) (0.24-0.82) K/uL Eos # (Auto) (0-0.50) K/uL Baso # (Auto) (0-0.2) K/uL Immature Gran # (Auto) (0.00-0.02) K/uL Platelet Estimate (Normal) Polychromasia Echinocytes Acanthocytes (Spur) Sodium (136-145) mmol/L Potassium (3.5-5.1) mmol/L Chloride (98-107) mmol/L Carbon Dioxide (21-32) mmol/L Anion Gap (3-11) BUN (6-23) mg/dl Creatinine (0.6-1.4) mg/dl Est Cr Clr Drug Dosing ml/min Est GFR ( Amer) ml/min Est GFR (Non-Af Amer) ml/min BUN/Creatinine Ratio (10-20) Glucose (70-99(Fasting)) mg/dl POC Glucose 107 H 143 H (70-99) mg/dl Calcium (8.5-10.1) mg/dl Magnesium (1.7-2.4) mg/dl Total Bilirubin (0.2-1.0) mg/dl AST (13-39) U/L ALT (7-52) U/L Alkaline Phosphatase (34-104) U/L Total Protein (6.0-8.3) gm/dl Albumin (3.4-5.0) gm/dl Globulin (2.5-4.0) gm/dl Albumin/Globulin Ratio (0.9-2) TSH 3.738 (0.300-4.500) uIu/ml 06/21/22 06/21/22 Range/Units 08:44 08:44 WBC 3.66 L (4.8-10.8) K/ul RBC 3.83 L (4.63-6.08) M/uL Hgb 12.1 L (14.0-18.0) g/dl Hct 37.1 L (40.1-51.0) % MCV 96.9 (80.0-100.0) fL MCH 31.6 (25.0-34.0) pg MCHC 32.6 (32.0-36.0) g/dL RDW Std Deviation 58.8 H (36.4-46.3) fL RDW Coeff of David 16.7 H (11.5-14.5) % Plt Count 102 L (130-400) K/uL MPV 13.3 H (9.4-12.4) fL Immature Gran % (Auto) 0.3 % Neut % (Auto) 57.2 % Lymph % (Auto) 27.0 % [place] % (Auto) 13.4 % Eos % (Auto) 1.6 % Baso % (Auto) 0.5 % Neut # (Auto) 2.09 (1.4-6.5) K/uL Lymph # (Auto) 0.99 L (1.2-3.4) K/uL [place] # (Auto) 0.49 (0.24-0.82) K/uL Eos # (Auto) 0.06 (0-0.50) K/uL Baso # (Auto) 0.02 (0-0.2) K/uL Immature Gran # (Auto) 0.01 (0.00-0.02) K/uL Platelet Estimate (Normal) Polychromasia 1+ Echinocytes 2+ Acanthocytes (Spur) 2+ Sodium 137 (136-145) mmol/L Potassium 3.5 (3.5-5.1) mmol/L Chloride 106 (98-107) mmol/L Carbon Dioxide 24 (21-32) mmol/L Anion Gap 7 (3-11) BUN 20 (6-23) mg/dl Creatinine 1.28 (0.6-1.4) mg/dl Est Cr Clr Drug Dosing 47.7 ml/min Est GFR ( Amer) 60.9 ml/min Est GFR (Non-Af Amer) 52.5 ml/min BUN/Creatinine Ratio 15.6 (10-20) Glucose 168 H (70-99(Fasting)) mg/dl POC Glucose (70-99) mg/dl Calcium 8.1 L (8.5-10.1) mg/dl Magnesium 1.9 (1.7-2.4) mg/dl Total Bilirubin 0.7 (0.2-1.0) mg/dl AST 18 (13-39) U/L ALT 10 (7-52) U/L Alkaline Phosphatase 71 (34-104) U/L Total Protein 6.1 (6.0-8.3) gm/dl Albumin 2.6 L (3.4-5.0) gm/dl Globulin 3.5 (2.5-4.0) gm/dl Albumin/Globulin Ratio 0.7 L (0.9-2) TSH (0.300-4.500) uIu/ml PG Care Time/CCT Total # of Minutes Spent Total Time Spent with Patient: Total time spent is greater than 50% in coordination of care (as documented) at patient's floor/unit and/or counseling patient: Coding Level of Care Code 18003 Subseq Hosp Care Lvl 3 Diagnoses Ascites R18.8 Cirrhosis K74.60 Weakness R53.1 Pneumonia J18.9 Atrial flutter I48.3 Atrial flutter type: typical Diabetes mellitus E11.22; N18.3 Chronic kidney disease stage: stage 3 (moderate) Diabetes mellitus complication detail: with chronic kidney disease Diabetes mellitus complication status: with kidney complications 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: without group home use Diabetes mellitus type: type 2 Chronic kidney disease, stage III (moderate) N18.3 CAD (coronary atherosclerotic disease) I25.10 Germ cell cancer C80.1 Pancytopenia due to antineoplastic chemotherapy D61.810; T45.1X5A Pressure ulcer L89.90 (1) Diabetes mellitus Chronic kidney disease stage: stage 3 (moderate) Diabetes mellitus complication detail: with chronic kidney disease Diabetes mellitus complication status: with kidney complications 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
--- NOTE | 2022-06-22 08:28 | Oral/Maxillofacial Progress Nt ---
Date of Service June 22, 2022 Assessment & Plan Admission and Anticipated Discharge Date Admission Date: June 19, 2022 Subjective POST OP NOTE at 2 weeks post oral surgery for chronic infection right side The patient did very well post operatively, healing is excellent. Well healed at 2 weeks minimal swelling as expected. The pain and muscle swelling is now gone. Tissue tone =healthy normal tissue Some mild nerve complications noted lower right lip but improving. Excellent ROM I will cancel the office appointment for tomorrow. Tony will call my office to reschedule in a few weeks Reviewed oral care Reviewed diet, massage, exercise and continued home/oral care Excellent healing from recent oral surgery no evidence of oral infection--area is now very well healed Results & Data ([facility]) Vital Signs (Past 12 Hours) Vital Signs Temp Pulse Resp BP Pulse Ox O2 Del Method 06/22/22 07:31 36.4 C L 61 16 145/81 H 97 Room Air 06/21/22 23:13 36.5 C 62 18 128/72 99 Room Air 06/21/22 21:12 98/61 L PG Care Time/CCT Total # of Minutes Spent Total Time Spent with Patient: Total time spent is greater than 50% in coordination of care (as documented) at patient's floor/unit and/or counseling patient: Coding Level of Care Code None
[2022-06-22] MEDS: INSULIN ASPART PER UNIT SC SCH ×4 (09:11→20:50)
[2022-06-22] MEDS ORDERED: SPIRONOLACTONE 12.5 MG TAB PO ONE (10:45)
[2022-06-22] MEDS: AZITHROMYCIN 250 MG in DEXTROSE 5% 250 ML IV SCH (20:03)
[2022-06-22] MEDS: MIRTAZAPINE TAB 15 MG TAB PO SCH (20:51)
[2022-06-22] MEDS: TAMSULOSIN HCL 0.4 MG CAP PO SCH (20:51)
[2022-06-22] MEDS: ENOXAPARIN INJ 40 MG/0.4 ML SYR SQ SCH (22:23)
[2022-06-23] MEDS: SPIRONOLACTONE 25 MG TAB PO SCH (07:49)
[2022-06-23] MEDS: FUROSEMIDE 20 MG TAB PO SCH (07:50)
[2022-06-23] MEDS: carvediloL 12.5 MG TAB PO SCH ×2 (07:50→21:52)
[2022-06-23] MEDS: ASPIRIN 81 MG ECTAB PO SCH (07:50)
[2022-06-23] MEDS: AMIODARONE 200 MG TAB PO SCH ×2 (07:50→18:24)
[2022-06-23] MEDS: AMOXICILLIN/CLAVULANATE 875 MG TAB PO SCH ×2 (07:50→18:25)
[2022-06-23] MEDS: INSULIN ASPART PER UNIT SC SCH ×4 (09:01→22:39)
--- NOTE | 2022-06-23 09:40 | Hospitalist Progress Note ---
Date of Service June 23, 2022 Assessment & Plan (1) Ascites: Plan: 81-year-old male with history of metastatic testicular cancer presenting with progressive abdominal pain and distention. Found to have large amount of ascites which was removed via paracentesis in the ER. Paracentesis performed with 4L ascitis fluid removed, WBC 71 Cytology sent -- without evidence for malignancy Had completed 4 cycles of chemo in the summer recent PET scan with improvement in lymphadenopathy, discussed with Dr Morris Patient did have marked ascites on PET scan, only recently placed on lasix, not been on spironolactone Of note, patient states was on 40mg Lasix daily, recently decreased to 20mg daily Had not gotten since admission, ordered for this evening with PO KCl supplementation On admission was to be ordered lasix and spironolactone -- patient does admit lasix but NEVER taken spironolactone Resumed lasix 20mg daily 06/21, consider increasing back to 40mg vs addition low dose aldactone given ascites Portal US without evidence for obstruction as done in patient without evidence for liver mets on imaging noted cirrhosis and ascites, NO OBSTRUCTION Of note, patient with infected dental implant earlier in summer, surgery with Dr Zuniga Has been on Augmentin -- can have been completed after today (switched ceftriaxone to augmentin for anareobic coverage given prior office cx enterococcus and on Keflex outpatient) Prior blood cultures /2 coag neg staph not michael, given weaknes/ascites repeated blood cultures and can f/u outpatient. remains afebrile will also ask wound RN to see about the R groin wound Denies diarrhea, however with multiple recent abx would need to monitor --> did send rx for Dificid last admission for diarrhea with +gene but negative toxin 06/22 reports improvement in appetite. Patient reports distention about the same, not any worse Resumed lasix 20mg last evening, started aldactone 12.5mg for abdominal distention/ascites Plan for additional 12.5mg Aldactone and continue 25mg po potassium supplementation ordered this morning for K 3.2 titrate up to 50mg over the next week if tolerated [facility] Plans for d/c tomorrow to [facility] 06/23 --> awaiting labs from this morning. Vitals stable. Suspect able to d/c [facility] today. continue Lasix/Aldactone and titrate up as needed for tx ascites Labs stable/slight increase in Cr to 1.47 but making good urine/not dehydrated on exam Had planned for dc and then patient with AICD shock this afternoon around 3/330 but reported feeling fine after. No palpitations/lightheadedness prior to event Left room and within ten minutes patient slid forward in the chair to the ground, denied LOC or trauma to head Has some nausea and reported lightheadedness with standing prior to the fall Repeat BP currently 126/77 Will hold AM dose diuretics for now, may need to space out through the day to prevent hypotension Will repeat CXR Check repeat labs/mag/replacement if needed Monitor overnight and hopefully will be able to get to [facility] tomorrow (2) Cirrhosis: Plan: noted mod-marked abdominal and pelvic ascites on March PET scan LFTs wnl s/p paracentesis for 4L as above, cytology negative for malignancy Portal vein US obtained as no prior hx cirrhosis reported however CTA/P does note evidence for cirrhosis with worsened abdominal pelvic ascites. trace right pleural effusion with body wall edema Resumed Lasix, consider increased dose to 40mg but will increase spironolactone as above for now and monitor continue titration outpatient as tolerated Will hold off increasing given low BP this afternoon/fall Monitor (3) Weakness: Plan: Progressive weakness over the last several months, likely 2nd to development of ascites and chronic illness/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 from recent chemo this summer 40lb weight loss, continued Abx for pneumonia as outlined below resume lasix, consider adding aldactone - increased to 25 mg daily. see above Reporting improvement in weakness / Protein supplementation drinks per /PCP PT/OT rec rehab --> [facility] hopefully tomorrow Will also check head CT --> patient denies hitting his head, no trauma on exam, however unclear if he passed out or not. He denies this but was with patient and then he stated felt lightheaded and doesn't appear with good recollection of passing out but also more worried about his nausea. Prior CT head with R mastoid effusion, ?if contributing to balance issues. No CT head on admit -- admit for ascites Monitor repeat CT (4) Pneumonia: Plan: CT of the chest with small patchy groundglass and nodular densities within the right lower lobe and right middle lobe which is new from prior study. Favoring pneumonia. Patient is afebrile, nontoxic in appearance Placed on Ceftriaxone/Azithro Complete 5 days azithro switched from rocephin to Augmentin 06/21 for better anaerobic coverage (complete 7-10 day course) -- would continue through 06/26 Pleural fluid did not seem infected, no need for coverage of SBP Breathing stable, on room air but reports shortness of breath diuretics for ascites as outlined scheduled albuterol hfa, added incentive spirometer Repeating CXR this afternoon given patient's complaints (5) Atrial flutter: Plan: Patient with history of atrial flutter. Presently in sinus rhythm Continue amiodarone 200 mg p.o. twice daily, carvedilol (6) Diabetes mellitus: Plan: Chronic. Blood sugar = 193 at present. Last hemoglobin A1c on 04/20/2022 = 5.1% Insulin sliding scale, acchuchecks AC and HS BSgs acceptable (7) Chronic kidney disease, stage III (moderate): Plan: Renal function at baseline 1.24 --> elevated to 1.4. Will hold am aldactone Avoid nephrotoxic agents and monitor (8) CAD (coronary atherosclerotic disease): Plan: Chronic. Stable. 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, last seen in March and completed 4 cycles of chemotherapy Recent PET scan with improvement Discussed with randal Watts for the cytology from pleural fluid to ensure not malignancy --> negative outpatient f/u (10) Pancytopenia due to antineoplastic chemotherapy: Plan: Stable resumed heparin SQ while inpatient given PLTs around what they usually are, no reported bleeding (sspect prior hgb from dilution from excess fluids) also with severe protein calorie malnutrition 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 -- continue supplementation (11) Pressure ulcer: Plan: right hip, seen at PCP, cx enterococcus sensitive to PCNs also topical silver cream per PCP sleeps on that side c/w stage III pressure injury schedule for wound care f/u 06/28 also has scab to R knee and RLE (scabbed over, nonpainful, no drainage) suspect drainage/scabbing from excessive fluids/ascites swelling improved with addition of lasix/spironolactone as above Nonpainful on exam Augmentin for better anaerobic coverage wound rn consulted inpatient continue local wound care/follow up outpatient Plan continued inpatient stay given fall when stable, hopefully tomorrow repeating labs/CXR, obtain CT head for completeness Admission and Anticipated Discharge Date Admission Date: June 19, 2022 Subjective eval this morning , doing well strength improved making good urine discussed continued monitoring of kidney function and titration of diuretics for ascites. still with shortness of breath but not worse no cough/sputum production had been getting ready to leave and his ICD went off states has been over 6 months since went off prior but felt fine after vitals were stable but BP borderline low but was going to still go to [facility]. after leaving room, patient in chair waiting for transport and slid forward to ground. denied hitting his head or any pain anywhere. does have a little nausea and lightheadedness reported prior to falling discussed keeping inpatient/will repeat CXR given SOB but not worse Discussed monitoring BP but BP 90s/60s prior to fall --- currently 126/77. No emesis but would prefer to monitor overnight. discussed with . Review of Systems Review of Systems: All systems reviewed & are unremarkable except as noted in HPI & below Physical Exam Physical Exam: General: chronically ill appearing male sitting up in bed, NAD HEENT; head normocephalic, atraumatic, mmm, trachea midline without deviation poor dentition, prior dental extraction noted, nonpainful on palpation no drainage Chest: aport R chest, ICD in place Resp: CTAB, decreased in the bases, faint RLL crackles, 97% on RA CV: RRR, decreased pitting edema RESOLVED, no calf tenderness GI: +BS, distension (about the same), ascites (slightly less), non-tender, : no lovelace MSK/Neuro: moves all extremities, no focal deficits Skin: pressure ulcer to R groin, covered with band aid scab to R knee, scab also to anterior LLE rivas Results & Data Results & Data ([facility]) Vital Signs (Past 12 Hours) Vital Signs Temp Pulse Resp BP BP Pulse Ox O2 Del Method 06/23/22 06:59 36.7 C 62 17 117/74 99 Room Air 06/22/22 22:13 36.4 C L 57 L 18 93/55 L 98 Room Air Laboratory Results 06/23/22 06/23/22 06/23/22 Range/Units 11:58 09:51 09:51 WBC 3.36 L (4.8-10.8) K/ul RBC 3.69 L (4.63-6.08) M/uL Hgb 11.9 L (14.0-18.0) g/dl Hct 35.3 L (40.1-51.0) % MCV 95.7 (80.0-100.0) fL MCH 32.2 (25.0-34.0) pg MCHC 33.7 (32.0-36.0) g/dL RDW Std Deviation 58.1 H (36.4-46.3) fL RDW Coeff of David 16.6 H (11.5-14.5) % Plt Count 84 L (130-400) K/uL MPV 13.8 H (9.4-12.4) fL Sodium 135 L (136-145) mmol/L Potassium 3.6 (3.5-5.1) mmol/L Chloride 105 (98-107) mmol/L Carbon Dioxide 24 (21-32) mmol/L Anion Gap 6 (3-11) BUN 23 (6-23) mg/dl Creatinine 1.47 H (0.6-1.4) mg/dl Est Cr Clr Drug Dosing 41.5 ml/min Est GFR ( Amer) 51.5 ml/min Est GFR (Non-Af Amer) 44.4 ml/min BUN/Creatinine Ratio 15.6 (10-20) Glucose 169 H (70-99(Fasting)) mg/dl POC Glucose 165 H (70-99) mg/dl Calcium 7.9 L (8.5-10.1) mg/dl Magnesium 1.9 (1.7-2.4) mg/dl 06/23/22 06/22/22 06/22/22 Range/Units 08:03 20:32 17:13 WBC (4.8-10.8) K/ul RBC (4.63-6.08) M/uL Hgb (14.0-18.0) g/dl Hct (40.1-51.0) % MCV (80.0-100.0) fL MCH (25.0-34.0) pg MCHC (32.0-36.0) g/dL RDW Std Deviation (36.4-46.3) fL RDW Coeff of David (11.5-14.5) % Plt Count (130-400) K/uL MPV (9.4-12.4) fL Sodium (136-145) mmol/L Potassium (3.5-5.1) mmol/L Chloride (98-107) mmol/L Carbon Dioxide (21-32) mmol/L Anion Gap (3-11) BUN (6-23) mg/dl Creatinine (0.6-1.4) mg/dl Est Cr Clr Drug Dosing ml/min Est GFR ( Amer) ml/min Est GFR (Non-Af Amer) ml/min BUN/Creatinine Ratio (10-20) Glucose (70-99(Fasting)) mg/dl POC Glucose 116 H 157 H 106 H (70-99) mg/dl Calcium (8.5-10.1) mg/dl Magnesium (1.7-2.4) mg/dl PG Care Time/CCT Total # of Minutes Spent Total Time Spent with Patient: Total time spent is greater than 50% in coordination of care (as documented) at patient's floor/unit and/or counseling patient: Coding Level of Care Code 55940 Subseq Hosp Care Lvl 3 Diagnoses Ascites R18.8 Cirrhosis K74.60 Weakness R53.1 Pneumonia J18.9 Atrial flutter I48.3 Atrial flutter type: typical Diabetes mellitus E11.22; N18.3 Chronic kidney disease stage: stage 3 (moderate) Diabetes mellitus complication detail: with chronic kidney disease Diabetes mellitus complication status: with kidney complications Diabetes mellitus retirement insulin use: without program host use Diabetes mellitus type: type 2 Chronic kidney disease, stage III (moderate) N18.3 CAD (coronary atherosclerotic disease) I25.10 Germ cell cancer C80.1 Pancytopenia due to antineoplastic chemotherapy D61.810; T45.1X5A Pressure ulcer L89.90 (1) Diabetes mellitus Chronic kidney disease stage: stage 3 (moderate) Diabetes mellitus complication detail: with chronic kidney disease Diabetes mellitus complication status: with kidney complications Diabetes mellitus retirement insulin use: without retirement use Diabetes mellitus type: type 2 Qualified Code(s): E11.22 - Type 2 diabetes mellitus with diabetic chronic kidney disease; N18.3 - Chronic kidney disease, stage 3 (moderate) (2) Atrial flutter Atrial flutter type: typical Qualified Code(s): I48.3 - Typical atrial flut ter
[2022-06-23 10:17] LABS: Hematocrit (blood only) 35.3 % (40.1-51.0); Hemoglobin 11.9 g/dl (14.0-18.0); White Blood Count 3.36 K/ul (4.8-10.8)
[2022-06-23 10:24] LABS: Mean Corpuscular Hemoglobin 32.2 pg (25.0-34.0); Mean Corpuscular Hgb Conc 33.7 g/dL (32.0-36.0); Mean Corpuscular Volume 95.7 fL (80.0-100.0); Mean Platelet Volume 13.8 fL (9.4-12.4); Platelet Count 84 K/uL (130-400); RDW Coefficient of Variation 16.6 % (11.5-14.5); RDW Standard Deviation 58.1 fL (36.4-46.3); Red Blood Count 3.69 M/uL (4.63-6.08)
[2022-06-23 10:36] LABS: BUN Creatinine Ratio 15.6 (10-20); Calcium 7.9 mg/dl (8.5-10.1); Creatinine Clr Calc Pharmacy 41.5 ml/min; Est GFR (African American) 51.5 ml/min; Est GFR (Non-African American) 44.4 ml/min; Magnesium 1.9 mg/dl (1.7-2.4); Potassium 3.6 mmol/L (3.5-5.1)
--- NOTE | 2022-06-23 11:07 | Discharge Summary ---
Date of Service June 23, 2022 Admission HPI Per Admitting Provider Tony Carroll is an 81yo male with history of multiple medical problems to include metastatic testicular cancer s/p chemotherapy - follows with Oncology, CAD s/p [place], AICD in place for history of NSVT, CKD, DM presenting with abdominal pain and distention as well as shortness of breath. Symptoms have been ongoing for the last week. He has had progressive abdominal distention. He denies fever, chills, chest pain, nausea, vomiting, diarrhea or constipation. Patient found to have significant amount of ascites. Had a paracentesis performed with 4L ascitic fluid removed. WBC=71 Overall he does endorse a progressive decline in functional status, energy and overall quality of life over the last several months. He reports losing quite a bit of weight, poor appetite and decreased oral intake. He has had diffuse weakness since February. He lives at home with his . Has difficulty with ambulation at times, has to climb steps to get into the home and to bed. Patient's voices some concern about getting home and getting the patient safely into bed. They request to stay at the hospital overnight. ER course: Doxycycline, Lasix, spironolactone, potassium Admission Exam Per Admitting Provider General: frail, chronically ill appearing patient resting comfortably, NAD, non-toxic in appearance, AA&O x 4 Skin: warm, dry, Stage II decubitus right hip, no bleeding or infection HEENT: NC/AT, PERRL, EOMI, anicteric sclera, conjunctiva without injection, external ear normal to inspection and nontender, nares patent, moist mucus membranes, no oropharyngeal lesions, neck supple, trachea midline, no LAD, no thyromegaly, no JVD Heart: +S1/S2, regular, no m/r/g, ICD left chest, port right chest Lungs: equal air entry bilaterally, no rales/rhonchi/wheezes Abd: +BS, soft, NT, +distention, no masses/organomegaly/ascites Ext: warm, 2+ pulses in UE/LE bilaterally, no clubbing/cyanosis or edema Neuro: nonfocal, patient AA&O x 4, speech intact, no facial droop, moving all extremities on command with equal strength 5/5 Principal Diagnosis Ascites Discharge Exam General: chronically ill appearing male sitting up in bed, NAD HEENT; head normocephalic, atraumatic, mmm, trachea midline without deviation poor dentition, prior dental extraction noted, nonpainful on palpation no drainage Chest: aport R chest, ICD in place Resp: CTAB, decreased in the bases, faint RLL crackles, 97% on RA CV: RRR, decreased pitting edema (almost completely resolved), no calf tenderness GI: +BS, distension (about the same), ascites (slightly less), non-tender, : no lovelace MSK/Neuro: moves all extremities, no focal deficits Skin: pressure ulcer to R groin, covered with band aid scab to R knee, scab also to anterior LLE rivas Discharge Data Allergies Allergy/AdvReac Type Severity Reaction Status Date / Time No Known Drug Allergies Allergy nkda Verified 06/15/22 17:02 Consultations 06/19/22 19:45 ED Decision to Admit Stat Ordered Studies Chest X-Ray 06/19/22 13:37 XR chest 1V portable HISTORY: 81 years-old Male SOB acute shortness of breath COMPARISON: Chest radiograph 04/19/2022 TECHNIQUE: Portable AP view of the chest FINDINGS: Cardiac silhouette is upper limits of normal in size. Prior median sternotomy with CABG. Left subclavian pacer/AICD. Right subclavian Cualgr-i-Bkcd catheter distal tip is noted within the expected location of the upper SVC. Moderate enrique diaphragmatic elevation. No pneumothorax, large pleural effusion or overt pulmonary edema. Chronic interstitial coarsening. Degenerative changes of the shoulders and spine. Healed chronic left-sided rib fractures. IMPRESSION: No acute process. ACT 112: Negative or not required by law. The above report was generated using voice recognition software. It may contain grammatical, syntax or spelling errors. Electronically signed by: Marquis Cullen M.D. 06/19/2022 4:37 PM Abdomen/Pelvis CT 06/19/22 16:[address] WITHOUT CONTRAST CT DOSE: 748.63 mGy.cm HISTORY: Abdominal pelvic ascites. new ascites ro mets from testicular ca TECHNIQUE: Multiaxial CT images of the abdomen and pelvis were performed without contrast. A dose lowering technique was utilized adhering to the principles of ALARA. COMPARISON STUDY: Head CT 03/29/2022, CT abdomen and pelvis 01/13/2022 FINDINGS: Cardiomegaly with partially imaged pacer leads. Coronary artery calcifications. Trace right pleural effusion. Subsegmental patchy opacities of the right middle lobe with additional bibasilar atelectasis/scarring. No pneumatosis or pneumoperitoneum. Unremarkable spleen. Mildly atrophic pancreas with scattered punctate calcifications suggestive of chronic pancreatitis. Unremarkable adrenal glands. The visualized gallbladder is unremarkable. Hyperattenuation of the liver, [place] of 80. Mild marginal nodularity of the liver. Unchanged 1.2 cm hypodense No hepatic mass identified. 1.7 cm cyst within the inferior pole right kidney with layering milk of calcium. 4 mm nonobstructing calculus of the inferior pole left kidney. No ureteral calculi or hydronephrosis. Atherosclerosis of the aorta without aneurysm. Mild retroperitoneal soft tissue thickening at the site of the previously noted pathologic lymphadenopathy appears stable. There is no new or progressive lymphadenopathy identified. Study is limited without the use of contrast. Small hiatal hernia. Wall thickening of the mid to distal stomach with partial distention. No bowel obstruction. Wall thickening is noted involving several loops of small bowel. Colonic diverticulosis. Noninflamed appendix. Moderate abdominal pelvic ascites has progressed from the prior studies. Mild generalized body wall edema. Healed chronic rib fractures are again noted. Gynecomastia. No destructive osteoblastic or osteolytic skeletal lesions identified. IMPRESSION: 1. Hyperattenuation of the liver redemonstrated which may represent sequela of prior drug toxicity, copper or iron deposition. Additionally, there is evidence of cirrhosis with worsened abdominal pelvic ascites. Trace right pleural effusion with body wall edema. 2. No bowel obstruction or pneumoperitoneum. 3. Wall thickening involving several loops of small bowel is likely secondary to the patient's edematous state. A nonspecific enteritis appear similarly. 4. Persistent soft tissue thickening within the area of the previously described retroperitoneal mass/lymphadenopathy. No new or progressive lymphadenopathy identified. 5. Additional findings as above. ACT 112: Negative or not required by law. The above report was generated using voice recognition software. It may contain grammatical, syntax or spelling errors. Electronically signed by: Marquis Cullen M.D. 06/19/2022 6:[address] 06/19/22 16:42 CT chest diagnostic wo con CT DOSE: HISTORY: ro mets from testicular cancer TECHNIQUE: Multiaxial CT images of the chest were performed without contrast. A dose lowering technique was utilized adhering to the principles of ALARA. COMPARISON: Chest CT 10/25/2021. FINDINGS: Biapical calcified pleural-parenchymal scarlike densities are again no poppy. Stable 3 mm nodule within the right lung apex image 45. Stable 3 mm subpleural nodule within the left lower lobe on image 96 abutting the major fissure. No new or suspicious pulmonary nodules identified. Small patchy groundglass and nodular densities within the right lower lobe and right middle lobe which are new from the prior study. This favors a pneumonia. Interstitial thickening at the lung bases is likely chronic. This is similar to the prior study. The central airways are patent. No pneumothorax. Trace right pleural effusion. Normal thyroid gland. There is left-sided pacemaker and a right subclavian Port-A-Cath which terminates at the SVC. Mild body wall edema and bilateral gynecomastia again noted. Please refer to same day abdomen and pelvis CT for further evaluation of the abdominal structures. Ascites noted within the upper abdomen. No mediastinal or hilar lymphadenopathy. Normal caliber esophagus. Normal caliber thoracic aorta. The heart is normal in size. No pericardial effusion. No suspicious lytic or blastic osseous lesions. Old, healed left-sided rib fractures are again noted. There are poststernotomy changes. IMPRESSION: 1. No evidence for metastatic disease within the chest. 2. Small patchy groundglass and nodular densities within the right lower lobe and right middle lobe which is new from the prior study. This favors a pneumonia. 3. Please refer the same day abdomen and pelvis CT for further evaluation of the abdominal structures. ACT 112: Negative or not required by law. Electronically signed by: Jhoan Alvarez M.D. 06/19/2022 5:56 PM Portal Vein US 06/21/22 09:06 US duplex portal hepatic veins HISTORY: 81 years-old Male ascites, ?cause ascites with testicular carcinoma COMPARISON: CT abdomen and pelvis 06/19/2022 TECHNIQUE: Multiple real-time sonographic images of the hepatic vasculature was obtained assessing grayscale appearance, color and spectral flow FINDINGS: Cirrhotic morphology of the liver. No hepatic mass identified. Abdominal ascites. Patency of the hepatic and portal veins. Hepatopedal flow within the portal vein. IMPRESSION: 1. Cirrhosis with ascites. 2. Patency of the hepatic and portal veins. ACT 112: Negative or not required by law. The above report was generated using voice recognition software. It may contain grammatical, syntax or spelling errors. Electronically signed by: Marquis Cullen M.D. 06/21/2022 1:35 PM Hospital Course (1) Ascites: 81-year-old male with history of metastatic testicular cancer presenting with progressive abdominal pain and distention. Found to have large amount of ascites which was removed via paracentesis in the ER. Paracentesis performed with 4L ascitis fluid removed, WBC 71 Cytology sent -- without evidence for malignancy Had completed 4 cycles of chemo in the summer recent PET scan with improvement in lymphadenopathy, discussed with Dr Morris Patient did have marked ascites on PET scan, only recently placed on lasix, not been on spironolactone Of note, patient states was on 40mg Lasix daily, recently decreased to 20mg daily Had not gotten since admission, ordered for this evening with PO KCl supplementation On admission was to be ordered lasix and spironolactone -- patient does admit lasix but NEVER taken spironolactone Resumed lasix 20mg daily 06/21, consider increasing back to 40mg vs addition low dose aldactone given ascites Portal US without evidence for obstruction as done in patient without evidence for liver mets on imaging noted cirrhosis and ascites, NO OBSTRUCTION Of note, patient with infected dental implant earlier in summer, surgery with Dr Zuniga Has been on Augmentin -- can have been completed after today (switched ceftriaxone to augmentin for anareobic coverage given prior office cx enterococcus and on Keflex outpatient) Prior blood cultures 1/2 coag neg staph not michael, given weaknes/ascites repeated blood cultures and can f/u outpatient. remains afebrile will also ask wound RN to see about the R groin wound Denies diarrhea, however with multiple recent abx would need to monitor --> did send rx for Dificid last admission for diarrhea with +gene but negative toxin 06/22 reports improvement in appetite. Patient reports distention about the same, not any worse Resumed lasix 20mg last evening, started aldactone 12.5mg for abdominal distention/ascites Plan for additional 12.5mg Aldactone and continue 25mg po potassium supplementation ordered this morning for K 3.2 titrate up to 50mg over the next week if tolerated [facility] Plans for d/c tomorrow to [facility] 06/23 --> awaiting labs from this morning. Vitals stable. Suspect able to d/c [facility] today. continue Lasix/Aldactone and titrate up as needed for tx ascites Tolerating increased dose aldactone. K wnl on AM labs Abd fullness stable, would rec continued titration and monitoring of labs at [facility] Will need f/u Oncology for continued surveillance of his germ cell ca and such Will continue augmentin through 06/26, additional 2 days Azithro F (2) Cirrhosis: noted mod-marked abdominal and pelvic ascites on March PET scan LFTs wnl s/p paracentesis for 4L as above, cytology negative for malignancy Portal vein US obtained as no prior hx cirrhosis reported however CTA/P does note evidence for cirrhosis with worsened abdominal pelvic ascites. trace right pleural effusion with body wall edema Resumed Lasix, consider increased dose to 40mg but will increase spironolactone as above for now and monitor continue titration outpatient as tolerated pancytopenia likely from cirrhosis no elevation in LFT/splenomegaly on exam, but could consider lyme/anaplasmosis testing if continued weakness issues (3) Weakness: Progressive weakness over the last several months, likely 2nd to development of ascites and chronic illness/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 from recent chemo this summer 40lb weight loss, continued Abx for pneumonia as outlined below resume lasix, consider adding aldactone - increased to 25 mg daily Reporting improvement in weakness 06/22 Protein supplementation drinks per /PCP PT/OT rec rehab --> [facility] hopefully tomorrow (4) Pneumonia: CT of the chest with small patchy groundglass and nodular densities within the right lower lobe and right middle lobe which is new from prior study. Favoring pneumonia. Patient is afebrile, nontoxic in appearance Placed on Ceftriaxone/Azithro Complete 5 days azithro (day 3/5) switched from rocephin to Augmentin 06/21 for better anaerobic coverage (complete 7-10 day course) -- would continue through 06/26 Pleural fluid did not seem infected, no need for coverage of SBP Breathing stable, on room air some SOB -- improving. increased diuretics as above as well Duonebs prn (5) Atrial flutter: Patient with history of atrial flutter. Presently in sinus rhythm Continue amiodarone 200 mg p.o. twice daily, carvedilol (6) Diabetes mellitus: Chronic. Blood sugar = 193 at present. Last hemoglobin A1c on 04/20/2022 = 5.1% Insulin sliding scale, acchuchecks AC and HS BSgs acceptable (7) Chronic kidney disease, stage III (moderate): Renal function at baseline 1.24 Avoid nephrotoxic agents and monitor (8) CAD (coronary atherosclerotic disease): Chronic. Stable. 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 on 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 -- continue supplementation (11) Pressure ulcer: right hip, seen at PCP, cx enterococcus sensitive to PCNs also topical silver cream per PCP sleeps on that side c/w stage III pressure injury schedule for wound care f/u 06/28 also has scab to R knee and RLE (scabbed over, nonpainful, no drainage) suspect drainage/scabbing from excessive fluids/ascites swelling improved with addition of lasix/spironolactone as above Nonpainful on exam Augmentin for better anaerobic coverage wound rn consulted inpatient continue local wound care/follow up outpatient Plan continued inpatient stay continue lasix, increased dose spironolactone -- titrate at [facility] as tolerated hopefully d/c to [facility] tomorrow Discharge Plan Discharge Items Patient Disposition: Transfer Inpatient Rehab Fac Reason For Visit: WEAKNESS Discharge Diagnosis: Weakness, Ascites, Pneumonia Goals: You have been hospitalized for an acute medical problem. During your stay at [facility], we have made an effort to correct the problem that brought you to the hospital while keeping you as comfortable as possible. Medications were used to bring your condition under control and your discharge instructions will include directions for any medications you should take after leaving the hospital. Please make sure you see your Primary Care Provider as part of your follow up plan. Activity: As commented below Non-emergency contact: Primary Care Provider and Oncologist Call non-emergency contact if: you have any medication questions and your symptoms worsen Follow-up/Referrals: Josafat Kohler, DO [Primary Care Provider] - Smooth Zuniga, MYRON [Physician] - (as needed) Candi Morris MD [Physician] - Diet: Heart Healthy and Low Sodium (2gm) Addtl Attending Provider Instructions: You have been hospitalized for weakness and found to have large amount of ascites (fluid in your abdominal cavity) They performed a paracentesis to remove the fluid. Analysis was negative for malignancy or infection thankfully. Imaging showed underlying cirrhosis, which could be from alcohol or more likely fatty liver disease, but can also be caused by medications. You had previously been on Lasix, which is continued at 20mg daily. This is continued, however treatment includes spironolactone and this was started and increased to 25mg daily. Ideally they will be able to titrate this up at [facility] to 50mg daily in the next couple of days but I would recommend monitoring of your kidney function and such while on this medication. You were also found to have a possible pneumonia and you were treated with IV antibiotics but given your groin lesion on the right, this area is typical to have anaerobic bacteria and you were restarted on Augmentin. You have an additional 7 doses (3.5 days) of Augmentin and will have another two doses of Azithromycin to complete treatment for pneumonia. You should continue incentive spirometer and inhaler as needed for shortness of breath. Please follow up with PCP in next 7-10 days. Please return to ER with any increased abdominal pain, shortness of breath, chest pain, or for any other symptoms concerning for you. It has been a pleasure being a part of the medical team providing for you while you have been in the hospital. Take care! Pending Studies at Discharge: Yes Studies:: Blood cultures -- no growth to date Stand-Alone Forms: My [facility] Skilled Items Patient informed of condition?: Yes DNR: Yes Discharge Level of Care: Acute rehab Communicable Disease: No Discharge Prognosis: Improving Lines: None Urinary Catheter: No Medications and DC Order Prescriptions: New spironolactone 25 mg Tablet 25 mg PO DAILY Qty: 30 0RF azithromycin 250 mg tablet 250 mg PO DAILY Qty: 2 0RF albuterol sulfate 90 mcg/actuation HFA aerosol inhaler 2 inh inhalation Q6H PRN (Reason: shortness of breath or wheezing) Qty: 6.7 0RF Continued carvedilol 12.5 mg tablet 12.5 mg PO BID Qty: 180 3RF Rx Instructions: must administer with a meal/food amiodarone 200 mg tablet 200 mg PO BID Qty: 180 3RF (DME) BD AutoShield Duo Pen Needle 30 gauge x 3/16" needle See Rx Instructions .ROUTE .MEDSUPPLY Qty: 100 1RF Rx Instructions: Use once daily to inject Victoza. DX E11.22 tamsulosin 0.4 mg capsule 0.4 mg PO HS Qty: 30 5RF ondansetron 4 mg tablet,disintegrating 4 mg PO Q8H PRN (Reason: nausea and vomiting) Qty: 30 1RF prochlorperazine maleate 10 mg tablet 10 mg PO Q6H PRN (Reason: Nausea) Victoza 2-Ronen 0.6 mg/0.1 mL (18 mg/3 mL) pen injector See Rx Instructions .ROUTE .COMPLEX Qty: 18 3RF Dose Instruction: INJECT 0.2ML (=1.2MG) SUBCUTANEOUSLY EVERY MORNING Rx Instructions: INJECT 0.2ML (=1.2MG) SUBCUTANEOUSLY EVERY MORNING hydrocodone-acetaminophen 5-325 mg tablet 1 tab PO Q4H PRN (Reason: pain) Qty: 20 0RF ondansetron HCl 8 mg tablet 8 mg PO Q8H PRN (Reason: nausea and vomiting) Qty: 14 0RF (DME) BiPap Machine Misc See Rx Instructions .MEDSUPPLY Qty: 1 0RF Rx Instructions: BIPAP 08/25 with heated humidification, tubing, and supplies. JANNIE: 99+ years. mirtazapine 15 mg tablet 15 mg PO DAILY Qty: 30 2RF silver sulfadiazine [Silvadene] 1 % cream 1 applic topical ONCE Qty: 50 1RF Rx Instructions: apply a 1.5 mm thickness lutein-zeaxanthin 25-5 mg capsule 1 cap PO HS cyanocobalamin (vitamin B-12) 5,000 mcg Capsule 5,000 mcg PO QPM Rx Instructions: @ lunch multivitamin tablet 1 tab PO QPM krill oil 500 mg capsule 500 mg PO QPM aspirin 81 mg Tablet,Delayed Release (Dr/Ec) 81 mg PO QAM furosemide [Lasix] 20 mg tablet 20 mg PO QAM chlorhexidine gluconate [Paroex Oral Rinse] 0.12 % mouthwash 15 ml buccal HS Marijuana-Medical Card 1 inh inhalation UD PRN (Reason: Nausea) amoxicillin-pot clavulanate 875-125 mg tablet 1 tab PO Q12H Qty: 7 0RF acetaminophen [Tylenol Extra Strength] 500 mg Tablet 1,000 mg PO Q6H PRN (Reason: Pain) Discontinued amoxicillin-pot clavulanate 875-125 mg tablet 1 tab PO Q12H Qty: 20 0RF Admission Data Admit Date/Time: 06/19/22 20:41 Attending Provider: Reji Hong Admit Provider: Monica Lizarraga Primary Care Provider: Josafat Kohler Other Providers: Monica Lizarraga ; [facility] Coding Diagnoses Ascites R18.8 Cirrhosis K74.60 Weakness R53.1 Pneumonia J18.9 Atrial flutter I48.3 Atrial flutter type: typical Diabetes mellitus E11.22; N18.3 Chronic kidney disease stage: stage 3 (moderate) Diabetes mellitus complication detail: with chronic kidney disease Diabetes mellitus complication status: with kidney complications Diabetes mellitus senior care insulin use: without senior care use Diabetes mellitus type: type 2 Chronic kidney disease, stage III (moderate) N18.3 CAD (coronary atherosclerotic disease) I25.10 Germ cell cancer C80.1 Pancytopenia due to antineoplastic chemotherapy D61.810; T45.1X5A Pressure ulcer L89.90
[2022-06-23] MEDS ORDERED: ALBUTEROL HFA 8 GM INHALER INH PRN ×2 (11:22→23:39)
[2022-06-23 16:40] LABS: Hematocrit (blood only) 37.7 % (40.1-51.0); Hemoglobin 12.7 g/dl (14.0-18.0); White Blood Count 4.46 K/ul (4.8-10.8)
[2022-06-23 16:50] LABS: Mean Corpuscular Hemoglobin 32.2 pg (25.0-34.0); Mean Corpuscular Hgb Conc 33.7 g/dL (32.0-36.0); Mean Corpuscular Volume 95.7 fL (80.0-100.0); Mean Platelet Volume 12.8 fL (9.4-12.4); Platelet Count 101 K/uL (130-400); RDW Coefficient of Variation 16.4 % (11.5-14.5); RDW Standard Deviation 58.2 fL (36.4-46.3); Red Blood Count 3.94 M/uL (4.63-6.08)
[2022-06-23 16:59] LABS: Calcium 8.1 mg/dl (8.5-10.1); Creatinine Clr Calc Pharmacy 39.1 ml/min; Est GFR (African American) 47.9 ml/min; Est GFR (Non-African American) 41.3 ml/min; Magnesium 1.8 mg/dl (1.7-2.4)
[2022-06-23 17:13] LABS: Acanthocytes 1+; Basophils # (auto) 0.03 K/uL (0-0.2); Basophils % (auto) 0.7 %; Eosinophils # (auto) 0.05 K/uL (0-0.50); Eosinophils % (auto) 1.1 %; Immature Granulocytes # (auto) 0.02 K/uL (0.00-0.02); Immature Granulocytes % (auto) 0.4 %; Lymphocytes # (auto) 1.04 K/uL (1.2-3.4); Lymphocytes % (auto) 23.3 %; Monocytes # (auto) 0.73 K/uL (0.24-0.82); Monocytes % (auto) 16.4 %; Neutrophils # (auto) 2.59 K/uL (1.4-6.5); Neutrophils % (auto) 58.1 %
--- NOTE | 2022-06-23 17:38 | XRay Report ---
XR chest 1V portable CLINICAL HISTORY: Shortness of breath status post fall. COMPARISON STUDY: Chest radiograph and chest CT June 19, 2022. FINDINGS: Left subclavian pacer/AICD is in place. There are median sternotomy wires and mediastinal s urgical clips. Multiple left-sided rib fractures are noted. The appearance of the chest is unchanged. Lung volumes are normal. Lungs are clear. There is no pneumothorax or pleural effusion. Cardiac size is normal. Mediastinal contours are normal. There is no evidence for pulmonary edema. IMPRESSION: No acute cardiopulmonary findings. No change in appearance of the chest. ACT 112: Negative or not required by law. Electronically signed by: Rick Treadwell M.D. 06/23/2022 5:37 PM
[2022-06-23] MEDS ORDERED: MAGNESIUM SULFATE / D5W 1 GM/100 ML BAG IV STA (18:04)
[2022-06-23] MEDS ORDERED: MAGNESIUM SULFATE / D5W 1 GM/100 ML BAG IV ONE (18:04)
[2022-06-23] MEDS: ALBUTEROL HFA 8 GM INHALER INH SCH ×3 (19:39→22:46)
--- NOTE | 2022-06-23 21:04 | CT Scan Report ---
CT head/brain wo con CLINICAL HISTORY: 81 years-old Male with s/p fall, weakness on admit, hx subarach. Acute head trauma status post fall TECHNIQUE: Multiple axial CT images of the head were obtained without contrast. A dose lowering tech nique was utilized adhering to the principles of ALARA. CT DOSE: 729.78 mGycm COMPARISON: Head CT 04/19/2022 FINDINGS: No acute intracranial hemorrhage, midline shift, intracranial mass, hydrocephalus, territorial ischem ia or abnormal extra-axial collection. Involutional changes. Calcifications of the falx cerebri. The calvarium is intact. Large right mastoid effusion. The left mastoid air cells are clear. Paranas al sinuses are also clear. Prior bilateral lens repair. IMPRESSION: No acute intracranial abnormality or calvarial fracture. ACT 112: Negative or not required by law. The above report was generated using voice recognition software. It may contain grammatical, syntax o r spelling errors. Electronically signed by: Marquis Cullen M.D. 06/23/2022 9:02 PM
[2022-06-23] MEDS: ENOXAPARIN INJ 40 MG/0.4 ML SYR SQ SCH (21:52)
[2022-06-23] MEDS: TAMSULOSIN HCL 0.4 MG CAP PO SCH (21:53)
[2022-06-23] MEDS: MIRTAZAPINE TAB 15 MG TAB PO SCH (21:53)
[2022-06-23] MEDS: AZITHROMYCIN 250 MG in DEXTROSE 5% 250 ML IV SCH (21:53)
[2022-06-24 05:50] LABS: Hematocrit (blood only) 34.2 % (40.1-51.0); Hemoglobin 11.9 g/dl (14.0-18.0); White Blood Count 4.48 K/ul (4.8-10.8)
[2022-06-24 06:09] LABS: Albumin Globulin Ratio 0.9 (0.9-2); Albumin Level 2.7 gm/dl (3.4-5.0); BUN Creatinine Ratio 16.1 (10-20); Bilirubin,Total 0.7 mg/dl (0.2-1.0); Calcium 8.1 mg/dl (8.5-10.1); Creatinine Clr Calc Pharmacy 43.2 ml/min; Est GFR (African American) 53.2 ml/min; Est GFR (Non-African American) 45.9 ml/min; Globulin 3.1 gm/dl (2.5-4.0); Magnesium 2.3 mg/dl (1.7-2.4); Total Protein 5.8 gm/dl (6.0-8.3)
[2022-06-24 06:35] LABS: Mean Corpuscular Hemoglobin 32.4 pg (25.0-34.0); Mean Corpuscular Hgb Conc 34.8 g/dL (32.0-36.0); Mean Corpuscular Volume 93.2 fL (80.0-100.0); Mean Platelet Volume 13.6 fL (9.4-12.4); Platelet Count 96 K/uL (130-400); RDW Coefficient of Variation 16.3 % (11.5-14.5); RDW Standard Deviation 55.3 fL (36.4-46.3); Red Blood Count 3.67 M/uL (4.63-6.08)
[2022-06-24 06:36] LABS: Acanthocytes 1+; Basophils # (auto) 0.03 K/uL (0-0.2); Basophils % (auto) 0.7 %; Eosinophils # (auto) 0.06 K/uL (0-0.50); Eosinophils % (auto) 1.3 %; Immature Granulocytes # (auto) 0.02 K/uL (0.00-0.02); Immature Granulocytes % (auto) 0.4 %; Lymphocytes # (auto) 1.55 K/uL (1.2-3.4); Lymphocytes % (auto) 34.6 %; Monocytes # (auto) 0.64 K/uL (0.24-0.82); Monocytes % (auto) 14.3 %; Neutrophils # (auto) 2.18 K/uL (1.4-6.5); Neutrophils % (auto) 48.7 %; Ovalocytes 1+; Polychromasia 1+
[2022-06-24] MEDS: INSULIN ASPART PER UNIT SC SCH ×4 (08:15→20:59)
--- NOTE | 2022-06-24 08:33 | Hospitalist Progress Note ---
Date of Service June 24, 2022 Assessment & Plan (1) Ascites: Plan: 81-year-old male with history of metastatic testicular cancer presenting with progressive abdominal pain and distention. Found to have large amount of ascites which was removed via paracentesis in the ER. Paracentesis performed with 4L ascitis fluid removed, WBC 71 Cytology sent -- without evidence for malignancy Had completed 4 cycles of chemo in the summer recent PET scan with improvement in lymphadenopathy, discussed with Dr Morris Patient did have marked ascites on PET scan, only recently placed on lasix, not been on spironolactone Of note, patient states was on 40mg Lasix daily, recently decreased to 20mg daily and had not gotten since admit, resumed 06/21. never taken aldactone Portal US without evidence for obstruction as done in patient without evidence for liver mets on imaging noted cirrhosis and ascites, NO OBSTRUCTION. ?if from amiodarone Of note, patient with infected dental implant earlier in summer, surgery with Dr Zuniga - completed augmentin, seen by Dr Zuniga and looked great 06/22 -- reported improvement in appetite. Started Aldactone 12.5mg daily and increased to 25mg daily 06/23 -- planning for discharge but then ICD fired x 2, had fall CT head negative, hx bleed BPs low, placed diuretics on hold for AM, transferred to telemetry and pacemaker interrogation/cards consulted 06/24-- patient flipped into afib/flutter this morning, ICD Dr Mcnair consulted, placed on diltiazem Again shocked this afternoon, could alter ICD setting but could miss true Vtach then, will keep for now Then, Dr Mcnair placed on amio gtt, obtaining amio level Discussed goals of care, likely not good candidate for 3hr therapy at [facility] given everything --> as remaining inpatient likely can consult for Sunday BP improved today to 134/73. Asked RN to obtain orthostatics given lightheadedness (2) Cirrhosis: Plan: noted mod-marked abdominal and pelvic ascites on March PET scan LFTs wnl s/p paracentesis for 4L as above, cytology negative for malignancy Portal vein US obtained as no prior hx cirrhosis reported however CTA/P does note evidence for cirrhosis with worsened abdominal pelvic ascites. trace right pleural effusion with body wall edema Diuretics on hold as above -- started Aldactone during inpatient stay but BPs lower/fall as above and BP stable and new start diltiazem 30mg TID May require repeat paracentesis, will check INR w/ AM labs (3) Weakness: Plan: Progressive weakness over the last several months, likely 2nd to development of ascites and chronic illness/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 from recent chemo this summer 40lb weight loss, continued Abx for pneumonia as outlined below resume lasix, consider adding aldactone - increased to 25 mg daily. see above Reporting improvement in weakness 06/22 Protein supplementation drinks per /PCP head CT --> patient denies hitting his head, no trauma on exam, however unclear if he passed out or not. He denies this but was with patient and then he stated felt lightheaded and doesn't appear with good recollection of passing out but also more worried about his nausea. Prior CT head with R mastoid effusion, ?if contributing to balance issues. CT head negative. Does have mastoid effusion (prior mastoidectomy) PT/OT rec rehab, accepted to [facility] but given above likely not good candidate. Need to consider SNF however considering palliative pending course over weekend (4) Pneumonia: Plan: CT of the chest with small patchy groundglass and nodular densities within the right lower lobe and right middle lobe which is new from prior study. Favoring pneumonia. Patient is afebrile, nontoxic in appearance Placed on Ceftriaxone/Azithro Complete 5 days azithro switched from rocephin to Augmentin 06/21 for better anaerobic coverage (complete 7-10 day course) -- would continue through 06/26 Pleural fluid did not seem infected, no need for coverage of SBP Breathing stable, on room air but reports shortness of breath baseline. Repeat CXR 06/23 no acute process Ordered incentive spirometer, albuterol HFA prn 93%on RA Monitor (5) Atrial flutter: Plan: Patient with history of atrial flutter. Presently in sinus rhythm Continue amiodarone 200 mg p.o. twice daily, carvedilol was to have decreased to once daily per cards, but remained on BID Placed on amio gtt given afib/flutter as above on telemetry 2gm IV mag given to keep closer to 2 could also have some GI/low appetite from the amio -- also ?if amio causing worsening cirrhosis as side effect given newer use and new cirrhosis (6) Diabetes mellitus: Plan: Chronic. Blood sugar = 193 at present. Last hemoglobin A1c on 04/20/2022 = 5.1% Insulin sliding scale, accu checkes AC/HS Monitor BSGs (7) Chronic kidney disease, stage III (moderate): Plan: Renal function at baseline 1.24 --> elevated to 1.4. Aldactone/lasix on hold for Cr 1.4, avoiding IVF to prevent excess volume overload Avoid nephrotoxic agents and monitor (8) CAD (coronary atherosclerotic disease): Plan: Chronic. Stable. 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, last seen in March and completed 4 cycles of chemotherapy Recent PET scan with improvement Discussed with randal Watts for the cytology from pleural fluid to ensure not malignancy --> negative outpatient f/u (10) Pancytopenia due to antineoplastic chemotherapy: Plan: Stable resumed Lovenox SQ while inpatient given PLTs around what they usually are, no reported bleeding (sspect prior hgb from dilution from excess fluids) --> some bleeding hemorrhoids this afternoon --> placed on hold moving forward also with severe protein calorie malnutrition with recent weight loss/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 on consult -- continue supplementation (11) Pressure ulcer: Plan: right hip, seen at PCP, cx enterococcus sensitive to PCNs also topical silver cream per PCP sleeps on that side c/w stage III pressure injury schedule for wound care f/u 06/28 also has scab to R knee and RLE (scabbed over, nonpainful, no drainage) suspect drainage/scabbing from excessive fluids/ascites swelling improved with addition of lasix/spironolactone as above Nonpainful on exam Augmentin for better anaerobic coverage wound rn consulted inpatient continue local wound care/follow up outpatient reporting stable/improved consider imaging R hip if continued issues however no warmth/erythema/drainage Plan continued inpatient stay Admission and Anticipated Discharge Date Admission Date: June 19, 2022 Subjective eval this morning states ate good breakfast doing ok up until this moring with repeat nausea but no further emesis/spit up since last night denied palpitations/chest pain breathing about the same 94% on RA Flipping in/out fib/flutter/NSR on tele Cardiology on consult, added diltiazem and will monitor response diuretics on hold abd distension about the same but abd softer today BM yesterday and feels like he has to have another one Hesitant to get up by himself, discussed to vamshi saunders to ensure someone with him to prevent an issues/repeat falls. Discussed CT head negative for acute bleed/CVA. This afternoon, patient underwent additional firing of ICD when he got up to go to the bathroom Dr Mcnair went to [facility], placed on amio gtt and continuing to monitor Discussed goals of care, they did not really think about this in the past but will think overnight. Discussed likely not able to tolerate 3hrs rehab at [facility] and may need to pursue different route at discharge. Discussed could have Dr Mcnair alter ICD settings but then could miss a true vtach and would have to be willing to accept that risk. They will continue current plan for now and think overnight. Possible consultation with palliative for Sunday. Review of Systems Review of Systems: All systems reviewed & are unremarkable except as noted in HPI & below Physical Exam Physical Exam: General: chronically ill appearing male sitting up in bed, NAD, reported some nausea this morning, improving with medication HEENT; head normocephalic, atraumatic, mm slightly dry, trachea midline without deviation poor dentition, prior dental extraction noted, nonpainful on palpation no drainage Chest: aport R chest, ICD in place Resp: CTAB, decreased in the bases, faint RLL crackles, 93% on RA CV: irregularly irregular (rate 83bpm), NO calf edematenderness GI: +BS, distension (about the same), SOFTER (reported BM) ascites (slightly less)/general body wall edema, non-tender to palpation : no lovelace MSK/Neuro: moves all extremities, no focal deficits Skin: pressure ulcer to R groin, covered with band aid scab to R knee, scab also to anterior LLE rivas Results & Data Results & Data ([facility]) Vital Signs (Past 12 Hours) Vital Signs Temp Pulse Resp BP BP Pulse Ox O2 Del Method 06/24/22 07:17 36.4 C L 57 L 16 132/76 97 Room Air 06/24/22 03:30 36.2 C L 55 L 16 133/75 100 Room Air 06/23/22 23:48 36.4 C L 55 L 16 99/60 L 99 Room Air 06/23/22 22:46 61 18 98 Room Air Laboratory Results 06/24/22 06/24/22 06/24/22 Range/Units 07:46 05:22 05:22 WBC 4.48 L (4.8-10.8) K/ul RBC 3.67 L (4.63-6.08) M/uL Hgb 11.9 L (14.0-18.0) g/dl Hct 34.2 L (40.1-51.0) % MCV 93.2 (80.0-100.0) fL MCH 32.4 (25.0-34.0) pg MCHC 34.8 (32.0-36.0) g/dL RDW Std Deviation 55.3 H (36.4-46.3) fL RDW Coeff of David 16.3 H (11.5-14.5) % Plt Count 96 L (130-400) K/uL MPV 13.6 H (9.4-12.4) fL Immature Gran % (Auto) 0.4 % Neut % (Auto) 48.7 % Lymph % (Auto) 34.6 % Clinton % (Auto) 14.3 % Eos % (Auto) 1.3 % Baso % (Auto) 0.7 % Neut # (Auto) 2.18 (1.4-6.5) K/uL Lymph # (Auto) 1.55 (1.2-3.4) K/uL Clinton # (Auto) 0.64 (0.24-0.82) K/uL Eos # (Auto) 0.06 (0-0.50) K/uL Baso # (Auto) 0.03 (0-0.2) K/uL Immature Gran # (Auto) 0.02 (0.00-0.02) K/uL Polychromasia 1+ Ovalocytes 1+ Acanthocytes (Spur) 1+ Sodium 134 L (136-145) mmol/L Potassium 4.0 (3.5-5.1) mmol/L Chloride 104 (98-107) mmol/L Carbon Dioxide 23 (21-32) mmol/L Anion Gap 7 (3-11) BUN 23 (6-23) mg/dl Creatinine 1.43 H (0.6-1.4) mg/dl Est Cr Clr Drug Dosing 43.2 ml/min Est GFR ( Amer) 53.2 ml/min Est GFR (Non-Af Amer) 45.9 ml/min BUN/Creatinine Ratio 16.1 (10-20) Glucose 126 H (70-99(Fasting)) mg/dl POC Glucose 120 H (70-99) mg/dl Calcium 8.1 L (8.5-10.1) mg/dl Magnesium 2.3 (1.7-2.4) mg/dl Total Bilirubin 0.7 (0.2-1.0) mg/dl AST 19 (13-39) U/L ALT 10 (7-52) U/L Alkaline Phosphatase 72 (34-104) U/L Ammonia (18-72) umol/L Total Protein 5.8 L (6.0-8.3) gm/dl Albumin 2.7 L (3.4-5.0) gm/dl Globulin 3.1 (2.5-4.0) gm/dl Albumin/Globulin Ratio 0.9 (0.9-2) 06/24/22 06/23/22 06/23/22 Range/Units 05:22 20:41 17:08 WBC (4.8-10.8) K/ul RBC (4.63-6.08) M/uL Hgb (14.0-18.0) g/dl Hct (40.1-51.0) % MCV (80.0-100.0) fL MCH (25.0-34.0) pg MCHC (32.0-36.0) g/dL RDW Std Deviation (36.4-46.3) fL RDW Coeff of David (11.5-14.5) % Plt Count (130-400) K/uL MPV (9.4-12.4) fL Immature Gran % (Auto) % Neut % (Auto) % Lymph % (Auto) % Clinton % (Auto) % Eos % (Auto) % Baso % (Auto) % Neut # (Auto) (1.4-6.5) K/uL Lymph # (Auto) (1.2-3.4) K/uL Clinton # (Auto) (0.24-0.82) K/uL Eos # (Auto) (0-0.50) K/uL Baso # (Auto) (0-0.2) K/uL Immature Gran # (Auto) (0.00-0.02) K/uL Polychromasia Ovalocytes Acanthocytes (Spur) Sodium (136-145) mmol/L Potassium (3.5-5.1) mmol/L Chloride (98-107) mmol/L Carbon Dioxide (21-32) mmol/L Anion Gap (3-11) BUN (6-23) mg/dl Creatinine (0.6-1.4) mg/dl Est Cr Clr Drug Dosing ml/min Est GFR ( Amer) ml/min Est GFR (Non-Af Amer) ml/min BUN/Creatinine Ratio (10-20) Glucose (70-99(Fasting)) mg/dl POC Glucose 146 H 145 H (70-99) mg/dl Calcium (8.5-10.1) mg/dl Magnesium (1.7-2.4) mg/dl Total Bilirubin (0.2-1.0) mg/dl AST (13-39) U/L ALT (7-52) U/L Alkaline Phosphatase (34-104) U/L Ammonia 23.0 (18-72) umol/L Total Protein (6.0-8.3) gm/dl Albumin (3.4-5.0) gm/dl Globulin (2.5-4.0) gm/dl Albumin/Globulin Ratio (0.9-2) 06/23/22 06/23/22 06/23/22 Range/Units 16:31 16:31 11:58 WBC 4.46 L (4.8-10.8) K/ul RBC 3.94 L (4.63-6.08) M/uL Hgb 12.7 L (14.0-18.0) g/dl Hct 37.7 L (40.1-51.0) % MCV 95.7 (80.0-100.0) fL MCH 32.2 (25.0-34.0) pg MCHC 33.7 (32.0-36.0) g/dL RDW Std Deviation 58.2 H (36.4-46.3) fL RDW Coeff of David 16.4 H (11.5-14.5) % Plt Count 101 L (130-400) K/uL MPV 12.8 H (9.4-12.4) fL Immature Gran % (Auto) 0.4 % Neut % (Auto) 58.1 % Lymph % (Auto) 23.3 % Clinton % (Auto) 16.4 % Eos % (Auto) 1.1 % Baso % (Auto) 0.7 % Neut # (Auto) 2.59 (1.4-6.5) K/uL Lymph # (Auto) 1.04 L (1.2-3.4) K/uL Clinton # (Auto) 0.73 (0.24-0.82) K/uL Eos # (Auto) 0.05 (0-0.50) K/uL Baso # (Auto) 0.03 (0-0.2) K/uL Immature Gran # (Auto) 0.02 (0.00-0.02) K/uL Polychromasia Ovalocytes Acanthocytes (Spur) 1+ Sodium 133 L (136-145) mmol/L Potassium 4.0 (3.5-5.1) mmol/L Chloride 103 (98-107) mmol/L Carbon Dioxide 22 (21-32) mmol/L Anion Gap 8 (3-11) BUN 25 H (6-23) mg/dl Creatinine 1.56 H (0.6-1.4) mg/dl Est Cr Clr Drug Dosing 39.1 ml/min Est GFR ( Amer) 47.9 ml/min Est GFR (Non-Af Amer) 41.3 ml/min BUN/Creatinine Ratio 16.0 (10-20) Glucose 155 H (70-99(Fasting)) mg/dl POC Glucose 165 H (70-99) mg/dl Calcium 8.1 L (8.5-10.1) mg/dl Magnesium 1.8 (1.7-2.4) mg/dl Total Bilirubin (0.2-1.0) mg/dl AST (13-39) U/L ALT (7-52) U/L Alkaline Phosphatase (34-104) U/L Ammonia (18-72) umol/L Total Protein (6.0-8.3) gm/dl Albumin (3.4-5.0) gm/dl Globulin (2.5-4.0) gm/dl Albumin/Globulin Ratio (0.9-2) 06/23/22 06/23/22 Range/Units 09:51 09:51 WBC 3.36 L (4.8-10.8) K/ul RBC 3.69 L (4.63-6.08) M/uL Hgb 11.9 L (14.0-18.0) g/dl Hct 35.3 L (40.1-51.0) % MCV 95.7 (80.0-100.0) fL MCH 32.2 (25.0-34.0) pg MCHC 33.7 (32.0-36.0) g/dL RDW Std Deviation 58.1 H (36.4-46.3) fL RDW Coeff of David 16.6 H (11.5-14.5) % Plt Count 84 L (130-400) K/uL MPV 13.8 H (9.4-12.4) fL Immature Gran % (Auto) % Neut % (Auto) % Lymph % (Auto) % Clinton % (Auto) % Eos % (Auto) % Baso % (Auto) % Neut # (Auto) (1.4-6.5) K/uL Lymph # (Auto) (1.2-3.4) K/uL Clinton # (Auto) (0.24-0.82) K/uL Eos # (Auto) (0-0.50) K/uL Baso # (Auto) (0-0.2) K/uL Immature Gran # (Auto) (0.00-0.02) K/uL Polychromasia Ovalocytes Acanthocytes (Spur) Sodium 135 L (136-145) mmol/L Potassium 3.6 (3.5-5.1) mmol/L Chloride 105 (98-107) mmol/L Carbon Dioxide 24 (21-32) mmol/L Anion Gap 6 (3-11) BUN 23 (6-23) mg/dl Creatinine 1.47 H (0.6-1.4) mg/dl Est Cr Clr Drug Dosing 41.5 ml/min Est GFR ( Amer) 51.5 ml/min Est GFR (Non-Af Amer) 44.4 ml/min BUN/Creatinine Ratio 15.6 (10-20) Glucose 169 H (70-99(Fasting)) mg/dl POC Glucose (70-99) mg/dl Calcium 7.9 L (8.5-10.1) mg/dl Magnesium 1.9 (1.7-2.4) mg/dl Total Bilirubin (0.2-1.0) mg/dl AST (13-39) U/L ALT (7-52) U/L Alkaline Phosphatase (34-104) U/L Ammonia (18-72) umol/L Total Protein (6.0-8.3) gm/dl Albumin (3.4-5.0) gm/dl Globulin (2.5-4.0) gm/dl Albumin/Globulin Ratio (0.9-2) Diagnostic Findings Chest X-Ray 06/23/22 16:14 XR chest 1V portable CLINICAL HISTORY: Shortness of breath status post fall. COMPARISON STUDY: Chest radiograph and chest CT June 19, 2022. FINDINGS: Left subclavian pacer/AICD is in place. There are median sternotomy wi res and mediastinal surgical clips. Multiple left-sided rib fractures are noted. The appearance of the chest is unchanged. Lung volumes are normal. Lungs are clear. There is no pneumothorax or pleural effusion. Cardiac size is normal. Mediastinal contours are normal. There is no evidence for pulmonary edema. IMPRESSION: No acute cardiopulmonary findings. No change in appearance of the chest. ACT 112: Negative or not required by law. Electronically signed by: Rick Treadwell M.D. 06/23/2022 5:[address] 06/23/22 18:04 CT head/brain wo con CLINICAL HISTORY: 81 years-old Male with s/p fall, weakness on admit, hx subarach. Acute head trauma status post fall TECHNIQUE: Multiple axial CT images of the head were obtained without contrast. A dose lowering technique was utilized adhering to the principles of ALARA. CT DOSE: 729.78 mGycm COMPARISON: Head CT 04/19/2022 FINDINGS: No acute intracranial hemorrhage, midline shift, intracranial mass, hydrocephalus, territorial ischemia or abnormal extra-axial collection. Involutional changes. Calcifications of the falx cerebri. The calvarium is intact. Large right mastoid effusion. The left mastoid air cells are clear. Paranasal sinuses are also clear. Prior bilateral lens repair. IMPRESSION: No acute intracranial abnormality or calvarial fracture. ACT 112: Negative or not required by law. The above report was generated using voice recognition software. It may contain grammatical, syntax or spelling errors. Electronically signed by: Marquis Cullen M.D. 06/23/2022 9:02 PM PG Care Time/CCT Total # of Minutes Spent Total Time Spent with Patient: Total time spent is greater than 50% in coordination of care (as documented) at patient's floor/unit and/or counseling patient: Coding Level of Care Code 68152 Subseq Hosp Care Lvl 3 Diagnoses Ascites R18.8 Cirrhosis K74.60 Weakness R53.1 Pneumonia J18.9 Atrial flutter I48.3 Atrial flutter type: typical Diabetes mellitus E11.22; N18.3 Chronic kidney disease stage: stage 3 (moderate) Diabetes mellitus complication detail: with chronic kidney disease Diabetes mellitus complication status: with kidney complications Diabetes mellitus intermediate insulin use: without predatory animal exterminator use Diabetes mellitus type: type 2 Chronic kidney disease, stage III (moderate) N18.3 CAD (coronary atherosclerotic disease) I25.10 Germ cell cancer C80.1 Pancytopenia due to antineoplastic chemotherapy D61.810; T45.1X5A Pressure ulcer L89.90 (1) Diabetes mellitus Chronic kidney disease stage: stage 3 (moderate) Diabetes mellitus complication detail: with chronic kidney disease Diabetes mellitus complication status: with kidney complications Diabetes mellitus predatory animal exterminator insulin use: without predatory animal exterminator use Diabetes mellitus type: type 2 Qualified Code(s): E11.22 - Type 2 diabetes mellitus with diabetic chronic kidney disease; N18.3 - Chronic kidney disease, stage 3 (moderate) (2) Atrial flutter Atrial flutter type: typical Qualified Code(s): I48.3 - Typical atrial flut ter
[2022-06-24] MEDS: AMOXICILLIN/CLAVULANATE 875 MG TAB PO SCH ×2 (08:55→17:40)
[2022-06-24] MEDS: ASPIRIN 81 MG ECTAB PO SCH (08:55)
[2022-06-24] MEDS: carvediloL 12.5 MG TAB PO SCH ×2 (08:55→21:00)
[2022-06-24] MEDS: AMIODARONE 200 MG TAB PO SCH ×2 (08:55→16:17)
[2022-06-24] MEDS ORDERED: SODIUM CHLORIDE 0.9% 1000ML 250 ML IV ONE (10:12)
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
--- NOTE | 2022-06-24 12:52 | Electrocardiogram Report ---
Test Reason : Blood Pressure : / mmHG Vent. Rate : 066 BPM Atrial Rate : 066 BPM P-R Int : 184 ms QRS Dur : 114 ms QT Int : 390 ms P-R-T Axes : 110 038 138 degrees QTc Int : 408 ms Normal sinus rhythm Low voltage QRS Cannot rule out Inferior infarct (cited on or before 19-JUN-2022) Abnormal ECG When compared with ECG of 19-JUN-2022 13:51, Premature ventricular complexes are no longer Present Confirmed by Rojelio Mcnair ([id number]) on 06/24/2022 12:52:09 PM Referred By: REFERRED SELF Confirmed By:Rojelio Mcnair
[2022-06-24] MEDS: dilTIAZem HCL 30 MG TAB PO SCH ×2 (13:37→21:00)
[2022-06-24] MEDS ORDERED: 0.2 MICRON FILTER SET 1 EACH IV ONE (15:40)
[2022-06-24] MEDS: AMIODARONE / D5W 360 MG/200 ML BAG IV SCH (16:13)
--- NOTE | 2022-06-24 16:51 | Electrocardiogram Report ---
Test Reason : Blood Pressure : / mmHG Vent. Rate : 094 BPM Atrial Rate : 084 BPM P-R Int : 000 ms QRS Dur : 128 ms QT Int : 424 ms P-R-T Axes : 000 039 189 degrees QTc Int : 530 ms Atrial fibrillation with pvcs Non-specific intra-ventricular conduction block Possible Inferior infarct (cited on or before 19-JUN-2022) Abnormal ECG When compared with ECG of 23-JUN-2022 17:38, Atrial fibrillation has replaced Sinus rhythm QT has lengthened Confirmed by Rojelio Mcnair ([id number]) on 06/24/2022 4:51:12 PM Referred By: REFERRED SELF Confirmed By:Rojelio Mcnair
[2022-06-24] MEDS: AZITHROMYCIN 250 MG in DEXTROSE 5% 250 ML IV SCH (20:59)
[2022-06-24] MEDS: TAMSULOSIN HCL 0.4 MG CAP PO SCH (21:00)
[2022-06-24] MEDS: MIRTAZAPINE TAB 15 MG TAB PO SCH (21:00)
--- NOTE | 2022-06-24 23:42 | Communication Note ---
Date of Service: June 24, 2022 Notified by patient's RN that patient's "AICD fired again at beginning of shift, monomorphic VTAC, rate 150-160, no LOC, no complaints of pain, no farther events. otherwise stable. resting in bed." At time of AICD firing, patient was reportedly resting in bed reading a book. According to tele, patient has been mostly maintaining a-fib, then went into a VT with subsequent AICD firing, then a paced sinus rhythm, and has since converted back into afib (rates initially 120s-130s, now in 90s). Patient remains asymptomatic. Chart reviewed including notes from primary team and cardiology. Patient has had multiple AICD firings and device has been interrogated multiple times (most recently interrogated this morning). Continuing carvedilol, amiodarone, and diltiazem as ordered. Resident Activity Tracking Resident Involvement: Resident Care Provided Care Provided: Adult Hospital Medicine
[2022-06-25] MEDS: AMIODARONE / D5W 360 MG/200 ML BAG IV SCH ×2 (00:50→13:02)
[2022-06-25 06:37] LABS: Hematocrit (blood only) 31.7 % (40.1-51.0); Hemoglobin 10.9 g/dl (14.0-18.0); White Blood Count 3.67 K/ul (4.8-10.8)
[2022-06-25 06:55] LABS: Albumin Globulin Ratio 0.8 (0.9-2); Albumin Level 2.5 gm/dl (3.4-5.0); BUN Creatinine Ratio 16.7 (10-20); Bilirubin,Total 0.4 mg/dl (0.2-1.0); Calcium 7.9 mg/dl (8.5-10.1); Creatinine Clr Calc Pharmacy 41.4 ml/min; Est GFR (African American) 50.2 ml/min; Est GFR (Non-African American) 43.3 ml/min; Globulin 3.3 gm/dl (2.5-4.0); Magnesium 2.2 mg/dl (1.7-2.4); Mean Corpuscular Hemoglobin 32.6 pg (25.0-34.0); Mean Corpuscular Hgb Conc 34.4 g/dL (32.0-36.0); Mean Corpuscular Volume 94.9 fL (80.0-100.0); Mean Platelet Volume 13.1 fL (9.4-12.4); Platelet Count 84 K/uL (130-400); Potassium 3.5 mmol/L (3.5-5.1); RDW Coefficient of Variation 16.4 % (11.5-14.5); RDW Standard Deviation 56.5 fL (36.4-46.3); Red Blood Count 3.34 M/uL (4.63-6.08); Total Protein 5.8 gm/dl (6.0-8.3)
[2022-06-25 07:01] LABS: INR 1.1 (0.9-1.1); Prothrombin Time 11.8 Seconds (9.0-12.0)
[2022-06-25 07:06] LABS: Basophils # (auto) 0.02 K/uL (0-0.2); Basophils % (auto) 0.5 %; Eosinophils # (auto) 0.03 K/uL (0-0.50); Eosinophils % (auto) 0.8 %; Immature Granulocytes # (auto) 0.01 K/uL (0.00-0.02); Immature Granulocytes % (auto) 0.3 %; Lymphocytes # (auto) 1.14 K/uL (1.2-3.4); Lymphocytes % (auto) 31.1 %; Monocytes # (auto) 0.61 K/uL (0.24-0.82); Monocytes % (auto) 16.6 %; Neutrophils # (auto) 1.86 K/uL (1.4-6.5); Neutrophils % (auto) 50.7 %; Ovalocytes 1+; Poikilocytosis Present; Polychromasia 1+
[2022-06-25] MEDS ORDERED: POTASSIUM CHLORIDE CRTAB 20 MEQ TABCR PO STA (08:23)
[2022-06-25] MEDS: INSULIN ASPART PER UNIT SC SCH ×4 (08:46→21:42)
--- NOTE | 2022-06-25 08:50 | Hospitalist Progress Note ---
Date of Service June 25, 2022 Assessment & Plan (1) Ventricular tachyarrhythmia: Plan: Moved to telemetry after planned d/c to [facility] after ICD shock/fall from chair to ground. CT head negative Additional shocks provided however per Dr Mcnair not all true Vtach, some supraventricular arrhythmia Most recent ICD firing AM 06/24, complex tachycardia. Gets diaphoretic sensation/lightheadedness right before shock Options discussed, patient and agreeable to possible AV rosa ablation procedure in AM to allow for atrial pacing, as they did not want to disable ICD therapy for him which would put him obviously at risk for not shocking a true Vtach Will make NPO at midnight and Dr Mcnair to discuss with patient/ in early AM Has remained on IV amiodarone (TSH now elevated? was normal earlier in stay? playing role in cirrhosis?/GI side effects). Amiodarone level pending Started on Cardizem 40mg TID, has been held for hypotension and systolic BP <90 on accession Hx CABG/Cardiomyopathy: Continue carvedilol BID, ASA Mildly reduced LV systolic function based on recent echo. Likely ischemic in origin. No CP reported but baseline SOB Continue to monitor on telemetry (2) Ascites: Plan: 81-year-old male with history of metastatic testicular cancer presenting with progressive abdominal pain and distention. Found to have large amount of ascites which was removed via paracentesis in the ER. Paracentesis performed with 4L ascitis fluid removed, WBC 71 Cytology sent -- without evidence for malignancy. No pain, or evidence for infection or need to cover for SBP Had completed 4 cycles of chemo in the summer recent PET scan with improvement in lymphadenopathy, discussed with Dr Morris Patient did have marked ascites on PET scan, only recently placed on lasix, not been on spironolactone Of note, patient states was on 40mg Lasix daily, recently decreased to 20mg daily and had not gotten since admit, resumed 06/21. never taken aldactone Portal US without evidence for obstruction as done in patient without evidence for liver mets on imaging noted cirrhosis and ascites, NO OBSTRUCTION. ?if from amiodarone Of note, patient with infected dental implant earlier in summer, surgery with Dr Zuniga - completed augmentin, seen by Dr Zuniga and looked great 06/22 -- reported improvement in appetite. Started Aldactone 12.5mg daily and increased to 25mg daily 06/23 -- planning for discharge but then ICD fired x 2, had fall CT head negative, hx bleed BPs low, placed diuretics on hold for AM, transferred to telemetry and pacemaker interrogation/cards consulted 06/24-- patient flipped into afib/flutter this morning, ICD Dr Mcnair consulted, placed on diltiazem Again shocked this afternoon, could alter ICD setting but could miss true Vtach then, will keep for now Then, Dr Mcnair placed on amio gtt, obtaining amio level Discussed goals of care, likely not good candidate for 3hr therapy at [facility] given everything --> as remaining inpatient likely can consult for Monday 06/25 -- ascites appears to be about the same, ?if would be able to arrange for repeat paracentesis. Will consult GI to weigh in. Nephrology resumed Lasix for hyponatremia this morning (labs incorrect), discussed and per nephro to hold for now (3) Cirrhosis: Plan: noted mod-marked abdominal and pelvic ascites on March PET scan LFTs wnl s/p paracentesis for 4L as above, cytology negative for malignancy Portal vein US obtained as no prior hx cirrhosis reported however CTA/P does note evidence for cirrhosis with worsened abdominal pelvic ascites. trace right pleural effusion with body wall edema Diuretics on hold as above -- started Aldactone during inpatient stay but BPs lower/fall as above and BP stable and new start diltiazem 30mg TID May require repeat paracentesis, will check INR w/ AM labs, consult GI for input (4) Weakness: Plan: Progressive weakness over the last several months, likely 2nd to development of ascites and chronic illness/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 from recent chemo this summer 40lb weight loss, continued Abx for pneumonia as outlined below resume lasix, consider adding aldactone - increased to 25 mg daily. see above Reporting improvement in weakness 06/22 Protein supplementation drinks per /PCP head CT --> patient denies hitting his head, no trauma on exam, however unclear if he passed out or not. He denies this but was with patient and then he stated felt lightheaded and doesn't appear with good recollection of passing out but also more worried about his nausea. Prior CT head with R mastoid effusion, ?if contributing to balance issues. CT head negative. Does have mastoid effusion (prior mastoidectomy) PT/OT rec rehab, accepted to [facility] but given above likely not good candidate. Need to consider SNF however considering palliative pending course over weekend (5) Pneumonia: Plan: CT of the chest with small patchy ground-glass and nodular densities within the right lower lobe and right middle lobe which is new from prior study. Favoring pneumonia. Patient is afebrile, nontoxic in appearance Placed on Ceftriaxone/Azithro, switched to Augmentin for anaerobic coverage and also to cover prior hip infxn (enteroccocus, sent on keflex outpatient) Continue incentive spirometer, albuterol HFA 96% on RA (6) Atrial flutter: Plan: Patient with history of atrial flutter. Continue amiodarone 200 mg p.o. twice daily, carvedilol was to have decreased to once daily per cards, but remained on BID Placed on amio gtt given afib/flutter as above on telemetry 2gm IV mag given to keep closer to 2 could also have some GI/low appetite from the amio -- also ?if amio causing worsening cirrhosis as side effect given newer use and new cirrhosis (7) Diabetes mellitus: Plan: Chronic. Blood sugar = 193 at present. Last hemoglobin A1c on 04/20/2022 = 5.1% Insulin sliding scale, accu checks AC/HS Monitor BSGs (8) Chronic kidney disease, stage III (moderate): Plan: Renal function at baseline 1.24 --> elevated to 1.5 Aldactone/lasix on hold for Cr 1.4, avoiding IVF to prevent excess volume overload 250nss IV ordered for some dehydration/poor PO intake, didn't eat dinner Avoid nephrotoxic agents and monitor (9) CAD (coronary atherosclerotic disease): Plan: Chronic. Stable. 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, last seen in March and completed 4 cycles of chemotherapy Recent PET scan with improvement Discussed with Dr Morris, recs for the cytology from pleural fluid to ensure not malignancy --> negative outpatient f/u (11) Pancytopenia due to antineoplastic chemotherapy: Plan: Stable resumed Lovenox SQ while inpatient given PLTs around what they usually are, no reported bleeding (sspect prior hgb from dilution from excess fluids) --> some bleeding hemorrhoids this afternoon --> placed on hold moving forward also with severe protein calorie malnutrition with recent weight loss/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 personal protection specialist on consult -- continue supplementation (12) Pressure ulcer: Plan: right hip, seen at PCP, cx enterococcus sensitive to PCNs also topical silver cream per PCP sleeps on that side c/w stage III pressure injury schedule for wound care f/u 06/28 also has scab to R knee and RLE (scabbed over, nonpainful, no drainage) suspect drainage/scabbing from excessive fluids/ascites swelling improved with addition of lasix/spironolactone as above Nonpainful on exam Augmentin for better anaerobic coverage wound rn consulted inpatient continue local wound care/follow up outpatient reporting stable/improved consider imaging R hip if continued issues however no warmth/erythema/drainage (13) S/P CABG (coronary artery bypass graft): (14) Hyponatremia: Plan: stable compared to prior values BNP elevated but multiple reasons for such (15) Cardiomyopathy: (16) Atrial fibrillation: Plan: in/out of such cards on consult planning for av rosa procedure for tomorrw Plan continued inpatient stay npo after midnight cards to dicuss AV rosa procedure in AM with /patient, GI consutled for cirrhosis, may need repeat para? Admission and Anticipated Discharge Date Admission Date: June 19, 2022 Subjective eval this afternoon ICD fired again overnight for Vtach after getting up from having BM on commode. Stated felt like he was having a warm flush come over him. Patient reports dizziness at times (reports chroinc x past two years) Does have advanced directive. Not wanting any artificial feeding Does not want intubated if recovery futile however would be will to short term intubation. Discussed can change code status, continue to have palliative discuss possibly goals of care tomorrow. Discussed Dr Mcnair wanting to consider AV rosa blocking procedure in AM. Patient contemplating, wanting to pursue, patient stated then he did want to have this done. Will make NPO at midnight and ask Dr Mcnair to touch base in AM/req to be in AM for questions. Shortness of breath at baseline, not changed, Doesn't believe any better or worse than days prior. Not using nebulizers. Discussed also repeating abd US to see if repeat paracentesis required. Does feel like room spinning at times, has not been up out of bed yet today. Appetite unchanged from yesterday. Could also have some amiodarone toxicity contributing to pulmonary symptoms/ Does have some perioral paresthesias. Patient reports prior on the right from surgery with Dr Zuniga but appears to be circumferental now. Review of Systems Review of Systems: All systems reviewed & are unremarkable except as noted in HPI & below Physical Exam Physical Exam: General: chronically ill appearing male sitting up in bed, thin, cachectic, NAD, depressed affect regarding chronic disease/illness, at bedside HEENT; head normocephalic, atraumatic, mm slightly dry, trachea midline without deviation poor dentition, prior dental extraction noted, nonpainful on palpation no drainage Chest: aport R chest, ICD in place Resp: CTAB, decreased in the bases, faint RLL crackles improving, 96% on RA CV: irregularly irregular (rate 83bpm), NO calf edema tenderness, trace pedal edema GI: +BS, distension (about the same), SOFTER (reported BM) ascites /general body wall edema, non-tender to palpation : no lovelace MSK/Neuro: moves all extremities, no focal deficits Skin: pressure ulcer to R groin, covered with band aid scab to R knee, scab also to anterior LLE rivas Results & Data Results & Data ([facility]) Vital Signs (Past 12 Hours) Vital Signs Temp Pulse Resp BP Pulse Ox O2 Del Method 06/25/22 07:48 36.5 C 97 H 18 110/69 99 Room Air 06/25/22 02:44 36.5 C 83 18 90/54 L 97 Room Air 06/24/22 23:47 36.8 C 90 18 92/46 L 96 Laboratory Results 06/25/22 06/25/22 06/25/22 Range/Units 07:19 06:09 06:09 WBC (4.8-10.8) K/ul RBC (4.63-6.08) M/uL Hgb (14.0-18.0) g/dl Hct (40.1-51.0) % MCV (80.0-100.0) fL MCH (25.0-34.0) pg MCHC (32.0-36.0) g/dL RDW Std Deviation (36.4-46.3) fL RDW Coeff of David (11.5-14.5) % Plt Count (130-400) K/uL MPV (9.4-12.4) fL Immature Gran % (Auto) % Neut % (Auto) % Lymph % (Auto) % [place] % (Auto) % Eos % (Auto) % Baso % (Auto) % Neut # (Auto) (1.4-6.5) K/uL Lymph # (Auto) (1.2-3.4) K/uL [place] # (Auto) (0.24-0.82) K/uL Eos # (Auto) (0-0.50) K/uL Baso # (Auto) (0-0.2) K/uL Immature Gran # (Auto) (0.00-0.02) K/uL Polychromasia Poikilocytosis Ovalocytes PT 11.8 (9.0-12.0) Seconds INR 1.1 (0.9-1.1) Sodium 127 L (136-145) mmol/L Potassium 3.5 (3.5-5.1) mmol/L Chloride 100 (98-107) mmol/L Carbon Dioxide 22 (21-32) mmol/L Anion Gap 5 (3-11) BUN 25 H (6-23) mg/dl Creatinine 1.50 H (0.6-1.4) mg/dl Est Cr Clr Drug Dosing 41.4 ml/min Est GFR ( Amer) 50.2 ml/min Est GFR (Non-Af Amer) 43.3 ml/min BUN/Creatinine Ratio 16.7 (10-20) Glucose 165 H (70-99(Fasting)) mg/dl POC Glucose 143 H (70-99) mg/dl Calcium 7.9 L (8.5-10.1) mg/dl Magnesium 2.2 (1.7-2.4) mg/dl Total Bilirubin 0.4 (0.2-1.0) mg/dl AST 21 (13-39) U/L ALT 11 (7-52) U/L Alkaline Phosphatase 72 (34-104) U/L Total Protein 5.8 L (6.0-8.3) gm/dl Albumin 2.5 L (3.4-5.0) gm/dl Globulin 3.3 (2.5-4.0) gm/dl Albumin/Globulin Ratio 0.8 L (0.9-2) Amiodarone Desmethylamiodarone 06/25/22 06/24/22 06/24/22 Range/Units 06:09 20:22 16:06 WBC 3.67 L (4.8-10.8) K/ul RBC 3.34 L (4.63-6.08) M/uL Hgb 10.9 L (14.0-18.0) g/dl Hct 31.7 L (40.1-51.0) % MCV 94.9 (80.0-100.0) fL MCH 32.6 (25.0-34.0) pg MCHC 34.4 (32.0-36.0) g/dL RDW Std Deviation 56.5 H (36.4-46.3) fL RDW Coeff of David 16.4 H (11.5-14.5) % Plt Count 84 L (130-400) K/uL MPV 13.1 H (9.4-12.4) fL Immature Gran % (Auto) 0.3 % Neut % (Auto) 50.7 % Lymph % (Auto) 31.1 % [place] % (Auto) 16.6 % Eos % (Auto) 0.8 % Baso % (Auto) 0.5 % Neut # (Auto) 1.86 (1.4-6.5) K/uL Lymph # (Auto) 1.14 L (1.2-3.4) K/uL [place] # (Auto) 0.61 (0.24-0.82) K/uL Eos # (Auto) 0.03 (0-0.50) K/uL Baso # (Auto) 0.02 (0-0.2) K/uL Immature Gran # (Auto) 0.01 (0.00-0.02) K/uL Polychromasia 1+ Poikilocytosis Present Ovalocytes 1+ PT (9.0-12.0) Seconds INR (0.9-1.1) Sodium (136-145) mmol/L Potassium (3.5-5.1) mmol/L Chloride (98-107) mmol/L Carbon Dioxide (21-32) mmol/L Anion Gap (3-11) BUN (6-23) mg/dl Creatinine (0.6-1.4) mg/dl Est Cr Clr Drug Dosing ml/min Est GFR ( Amer) ml/min Est GFR (Non-Af Amer) ml/min BUN/Creatinine Ratio (10-20) Glucose (70-99(Fasting)) mg/dl POC Glucose 165 H (70-99) mg/dl Calcium (8.5-10.1) mg/dl Magnesium (1.7-2.4) mg/dl Total Bilirubin (0.2-1.0) mg/dl AST (13-39) U/L ALT (7-52) U/L Alkaline Phosphatase (34-104) U/L Total Protein (6.0-8.3) gm/dl Albumin (3.4-5.0) gm/dl Globulin (2.5-4.0) gm/dl Albumin/Globulin Ratio (0.9-2) Amiodarone Pending Desmethylamiodarone Pending 06/24/22 06/24/22 Range/Units 15:38 11:32 WBC (4.8-10.8) K/ul RBC (4.63-6.08) M/uL Hgb (14.0-18.0) g/dl Hct (40.1-51.0) % MCV (80.0-100.0) fL MCH (25.0-34.0) pg MCHC (32.0-36.0) g/dL RDW Std Deviation (36.4-46.3) fL RDW Coeff of David (11.5-14.5) % Plt Count (130-400) K/uL MPV (9.4-12.4) fL Immature Gran % (Auto) % Neut % (Auto) % Lymph % (Auto) % [place] % (Auto) % Eos % (Auto) % Baso % (Auto) % Neut # (Auto) (1.4-6.5) K/uL Lymph # (Auto) (1.2-3.4) K/uL [place] # (Auto) (0.24-0.82) K/uL Eos # (Auto) (0-0.50) K/uL Baso # (Auto) (0-0.2) K/uL Immature Gran # (Auto) (0.00-0.02) K/uL Polychromasia Poikilocytosis Ovalocytes PT (9.0-12.0) Seconds INR (0.9-1.1) Sodium (136-145) mmol/L Potassium (3.5-5.1) mmol/L Chloride (98-107) mmol/L Carbon Dioxide (21-32) mmol/L Anion Gap (3-11) BUN (6-23) mg/dl Creatinine (0.6-1.4) mg/dl Est Cr Clr Drug Dosing ml/min Est GFR ( Amer) ml/min Est GFR (Non-Af Amer) ml/min BUN/Creatinine Ratio (10-20) Glucose (70-99(Fasting)) mg/dl POC Glucose 121 H 175 H (70-99) mg/dl Calcium (8.5-10.1) mg/dl Magnesium (1.7-2.4) mg/dl Total Bilirubin (0.2-1.0) mg/dl AST (13-39) U/L ALT (7-52) U/L Alkaline Phosphatase (34-104) U/L Total Protein (6.0-8.3) gm/dl Albumin (3.4-5.0) gm/dl Globulin (2.5-4.0) gm/dl Albumin/Globulin Ratio (0.9-2) Amiodarone Desmethylamiodarone PG Care Time/CCT Total # of Minutes Spent Total Time Spent with Patient: Total time spent is greater than 50% in coordination of care (as documented) at patient's floor/unit and/or counseling patient: Coding Level of Care Code 17324 Subseq Hosp Care Lvl 3 Diagnoses Ventricular tachyarrhythmia I47.20 Ascites R18.8 Cirrhosis K74.60 Weakness R53.1 Pneumonia J18.9 Atrial flutter I48.3 Atrial flutter type: typical Diabetes mellitus E11.22; N18.3 Chronic kidney disease stage: stage 3 (moderate) Diabetes mellitus complication detail: with chronic kidney disease Diabetes mellitus complication status: with kidney complications Diabetes mellitus mcfp insulin use: without truck terminal manager use Diabetes mellitus type: type 2 Chronic kidney disease, stage III (moderate) N18.3 CAD (coronary atherosclerotic disease) I25.10 Germ cell cancer C80.1 Pancytopenia due to antineoplastic chemotherapy D61.810; T45.1X5A Pressure ulcer L89.90 S/P CABG (coronary artery bypass graft) Z95.1 Hyponatremia E87.1 Cardiomyopathy I42.9 Atrial fibrillation I48.91 (1) Diabetes mellitus Chronic kidney disease stage: stage 3 (moderate) Diabetes mellitus complication detail: with chronic kidney disease Diabetes mellitus complication status: with kidney complications Diabetes mellitus mcfp insulin use: w [facility] mcfp use Diabetes mellitus type: type 2 Qualified Code(s): E11.22 - Type 2 diabetes mellitus with diabetic chronic kidney disease; N18.3 - Chronic kidney disease, stage 3 (moderate) (2) Atrial flutter Atrial flutter type: typical Qualified Code(s): I48.3 - Typical atrial flutter
[2022-06-25] MEDS: ASPIRIN 81 MG ECTAB PO SCH (08:53)
[2022-06-25] MEDS: AMIODARONE 200 MG TAB PO SCH ×2 (08:53→17:22)
[2022-06-25] MEDS: AMOXICILLIN/CLAVULANATE 875 MG TAB PO SCH ×2 (08:53→17:22)
[2022-06-25] MEDS: carvediloL 12.5 MG TAB PO SCH ×3 (09:00→21:04)
[2022-06-25] MEDS: dilTIAZem HCL 30 MG TAB PO SCH ×3 (09:00→21:03)
[2022-06-25 09:51] LABS: Thyroid Stimulating Hormone 5.54 uIu/ml (0.300-4.500)
[2022-06-25 10:36] LABS: T4 Free Thyroxine 1.44 ng/dl (0.61-1.60)
[2022-06-25 11:01] LABS: Appearance Urine Clear (Clear); Bacteria Urine Automated Negative (Negative); Bilirubin Urine Negative (Negative); Blood Urine Negative (Negative); Cast Urine Automated 0 /lpf (0-5); Color Urine Yellow; Glucose Urine UA Negative (Negative); Ketones Urine Negative (Negative); Leukocyte Esterase Urine Negative (Negative); Nitrite Urine Negative (Negative); Protein Urine Trace (Negative); RBC Urine Automated 0-4 /hpf (0-4); Specific Gravity Urine 1.015 (1.000-1.030); Urobilinogen Urine Negative (Negative)
--- NOTE | 2022-06-25 11:12 | Nephrology Consultation ---
Date of Consultation June 25, 2022 Assessment & Plan (1) Hyponatremia: (2) Cirrhosis: (3) Anemia: (4) Ascites: (5) Chronic renal failure, stage 3b: (6) Severe protein-calorie malnutrition: Plan 81-year-old gentlemen with stage IIIB CKD, cirrhosis, ascites, prior history of testicular cancer, ischemic cardiomyopathy admitted to the hospital with 1 week history of abdominal pain, worsening abdominal ascites. Abdominal pain and discomfort for improved after paracentesis. Renal function staying close to baseline of around 1.8-2. Noted to have acute hyponatremia on lab this morning with serum sodium 127, prior sodium close to 134 to 135. has been relatively hypotensive over last 2 days and history of ventricular tachycardia converted ICD. Hyponatremia most likely multifactorial including hypotension, cirrhosis and poor solute intake. -- recommend to resume spironolactone 25 mg daily and Lasix 20 mg daily, may need to increase to 40 mg daily if needed, monitor intake and output -- liberalize salt in diet, encourage increase protein intake -- repeat serum sodium this afternoon -- consider decreasing Carvedilol as blood pressure remains low -- iron study Thank you for allowing me to participate in your patient's care. It was a pleasure to see Tony. History of Present Illness Attending Physician: Tyrell Sanches History of Present Illness Mr. Tony Carroll is a 81-year-old male All with past medical history significant for stage IIIB CKD, history of coronary artery disease, diagnosis of testicular cancer in 2020 admitted to the hospital with abdominal pain, cirrhosis and worsening abdominal ascites. nephrology consult was requested as he developed acute hyponatremia with relatively stable CKD. EMR records reviewed in detail during patient's visit. Tony presented with 1 week history of abdominal pain and progressive abdominal distension and increased difficulty breathing. CT abdomen pelvis showed cirrhotic changes in liver with abdominal ascites. had paracentesis done which improved abdominal pain and respiratory distress but continues to have significant amount of ascites. Ascites fluid cytology was negative. Renal function stayed relatively close to baseline with creatinine around 1.5, electrolyte was acceptable. Urinalysis was negative for proteinuria or hematuria. There was no postrenal obstruction on CT A/P. His p.o. intake has been relatively poor. Serum sodium was staying around 134-135 since admission. This morning lab showed serum sodium 127. Urine osmolality and urine sodium cu rrently pending. he has been relatively hypotensive with systolic blood pressure in high 80s to high 90s. Lasix has been on hold because of hypotension. He generally avoid salt in diet. Did not receive any NSAID or hydrochlorothiazide during hospitalization. No history of hypothyroidism. Has Stage IIIB CKD, baseline creatinine has been quite variable around 1.8-2 with repeated history of SHARON. Has h/o testicular cancer diagnosed in 2020 and completed chemotherapy in March 2022. CT abdomen pelvis was negative for any new metastatic disease. h/o CAD status post CABG. History of ICD with repeated shock, yesterday he had an episode of ventricular tachycardia which the ICD converted. he was started on amiodarone drip without bolus. History of ischemic cardiomyopathy, last EF 40-45%. He has been having ascites and lower extremity edema for last few months, previously he was on Lasix 20 mg daily during last outpatient visit he was advised to increase Lasix to 40 mg daily. was also on spironolactone 25 mg daily. This morning he was awake, alert, comfortable, denied any shortness of breath or significant abdominal discomfort. renal function staying stable this morning, sodium dropped to 127 but other electrolytes remain acceptable. Allergies Allergy/AdvReac Type Severity Reaction Status Date / Time No Known Drug Allergies Allergy nkda Verified 06/15/22 17:02 Home Medications Medication Instructions Recorded Confirmed Type cyanocobalamin (vitamin B-12) 5,000 mcg PO QPM 11/13/18 06/08/22 History 5,000 mcg capsule multivitamin 1 tab PO QPM 03/04/19 06/08/22 History aspirin 81 mg tablet,delayed 81 mg PO QAM 07/05/20 06/08/22 History release lutein 25 mg-zeaxanthin 5 mg 1 cap PO HS 11/05/20 06/08/22 History capsule krill oil 500 mg capsule 500 mg PO QPM 07/18/21 06/08/22 History carvedilol 12.5 mg tablet 12.5 mg PO BID #180 tabs 08/29/21 06/08/22 Rx amiodarone 200 mg tablet 200 mg PO BID #180 tabs 11/04/21 06/08/22 Rx pen needle,diabetic dual safty 30 #100 ea 11/07/21 06/08/22 Rx gauge x 3/16" (BD AutoShield Duo Pen Needle) tamsulosin 0.4 mg capsule 0.4 mg PO HS #30 caps 11/08/21 06/08/22 Rx ondansetron 4 mg disintegrating 4 mg PO Q8H PRN nausea and 11/11/21 06/08/22 Rx tablet vomiting #30 tabs prochlorperazine maleate 10 mg 10 mg PO Q6H PRN Nausea 12/16/21 06/08/22 History tablet liraglutide 0.6 mg/0.1 mL (18 mg/3 See Rx Instructions .Route 04/18/22 06/08/22 Rx mL) subcutaneous pen injector .COMPLEX #18 mL (Victoza 2-Ronen) acetaminophen 500 mg tablet 1,000 mg PO Q6H PRN Pain 04/19/22 06/08/22 History (Tylenol Extra Strength) BiPap Machine #1 ea 05/23/22 06/08/22 Rx Marijuana-Medical Card 1 inh inhalation UD PRN Nausea 05/29/22 06/08/22 History chlorhexidine gluconate 0.12 % 15 ml buccal HS 05/29/22 06/08/22 History mouthwash (Paroex Oral Rinse) furosemide 20 mg tablet (Lasix) 20 mg PO QAM 05/29/22 06/08/22 History hydrocodone 5 mg-acetaminophen 325 1 tab PO Q4H PRN pain #20 tabs 06/05/22 06/08/22 Rx mg tablet ondansetron HCl 8 mg tablet 8 mg PO Q8H PRN nausea and 06/05/22 06/08/22 Rx vomiting #14 tabs mirtazapine 15 mg tablet 15 mg PO DAILY #30 tabs 06/15/22 06/15/22 Rx silver sulfadiazine 1 % topical 1 applic topical ONCE #50 grams 06/15/22 06/15/22 Rx cream (Silvadene) albuterol sulfate 90 mcg/actuation 2 inh inhalation Q6H PRN shortness 06/23/22 Rx aerosol inhaler of breath or wheezing #6.7 grams amoxicillin 875 mg-potassium 1 tab PO Q12H #7 tabs 06/23/22 Rx clavulanate 125 mg tablet azithromycin 250 mg tablet 250 mg PO DAILY #2 tabs 06/23/22 Rx spironolactone 25 mg tablet 25 mg PO DAILY #30 tabs 10/07/22 Rx Patient History Medical History (Updated 06/25/22 @ 11:33 by Mary Grace Hurd MD) Abdominal pain Atrial flutter Presented to the emergency room on August 16, 2020 after syncopal episode; arrhythmia identified on arrival- based on his ICD evaluation, converted with an ICD shock and "seems to have remained in sinus rhythm. 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 -CHEMO COMPLETED 04/17/2022 H/O acute myocardial infarction 1988 History of bladder stone History of cancer chemotherapy History of kidney stones History of subarachnoid hemorrhage History of ventricular fibrillation s/p ICD [place] (hard of hearing) Hyperlipidemia Hyponatremia ICD (implantable cardioverter-defibrillator) in place INITIALLY IMPLANTED 2002 ; GENERATOR CHANGE 2011 AND DECEMBER 02, 2019- [employer] Ischemic cardiomyopathy (Unknown) S/p ICD implantation EF 40% per most recent echo 08/2020 Retroperitoneal lymphadenopathy SNHL (sensorineural hearing loss) Testicular cancer with mets to the lymph nodes. Needle biopsy at [facility] dx 11/2021. Surgical History Difficult airway for intubation PT REPORTS WAS TOLD PT WAS DIFFICULT INTUBATION - UNKNOWN FURTHER DETAILS - ? SURGERY WAS TOLD THIS- POSSIBLY BYPASS SURGERY PER -PER PT 30+ YRS AGO?-NO RECENT ISSUES PER PT H/O tympanomastoidectomy RIGHT 11/12/20 [facility] History of adenoidectomy History of cardiac cath PRIOR TO HEART SURGERY, [facility] - NO STENT(S) History of cataract surgery R/L History of colonoscopy History of coronary artery bypass graft 3 VESSELS 1998 History of cystoscopy REMOVAL KIDNEY STONE History of laminectomy History of nasal septoplasty History of tonsillectomy History of tonsillectomy and adenoidectomy History of tympanomastoidectomy (~12/2020) LEFT Hx of oral surgery (06/05/22) Removal of Infected Necrotic Bone Right Posterior Mandible and Infected Bone Screw and Fractured Teeth(Right) - Smooth Zuniga, DMD Implantation of internal cardiac defibrillator (05/02/12) Port-A-Cath in place (12/22/21) Insertion of Access Port Right Subclavian with Fluoroscopy(Right) - Ivan Peacock DO 12/22/2021 S/P ICD (internal cardiac defibrillator) procedure Placed 2002, generator change 2011 and 2019 Status post chemotherapy Family History Mother Breast cancer Family history of diabetes mellitus Grandmother (Maternal) No problems noted. Grandmother (Paternal) Myocardial infarction Breast cancer Father Myocardial infarction Brother Brain cancer Sister Cancer Denies family history of Ovarian cancer Prostate cancer Colorectal cancer Social History Smoking Status: Former smoker Tobacco Type: Cigarettes packs per day: 2; Years Smoked: 31; Cigarettes Per Day: 2.5; Second Hand Exposure: No; Hx Alcohol Use: Yes Hx Substance Use: No Preferred Language: Wolof Communication Ability: Effective Visual Impairment: No Limitations Hearing Ability: Normal [employer] Development Intern Required: No Beliefs That Will Affect Care: None marital status: Current Living Situation: Spouse current occupational status: retired current occupation: How many Children do You have: 1 Feels Safe at Home: Yes Childhood Exposure to Second-Hand Smoke: No Diet Comment: "go low" Dental Care, Regularly: Yes Physical Activity Frequency: 1-2 Times per Week Seatbelt Use: always Sunscreen Use: No Assistive Devices: Walker Review of Systems Review of Systems: All systems reviewed & are unremarkable except as noted in HPI & below Physical Exam Constitutional: WD/WN, vitals as above + ill appearing and + cachectic; no acute distress Eyes: + anicteric sclerae ENMT: Ears: no hearing impairment Neck: normal visual inspection Respiratory: normal respiratory effort; no respiratory distress Auscultation: + diminished lung sounds; no crackles and no wheezes Cardiovascular: Rate/Rhythm: regular rate and regular rhythm Heart Sounds: normal S1 and normal S2 Extremities: + edema (trace b/l LE edema.) Gastrointestinal (Abdomen): Inspection/Auscultation: abdomen normal to inspection and normal bowel sounds Percussion/Palpation: abdomen soft; abdomen nontender Musculoskeletal: Extremities: extremities normal to inspection Skin: no rashes Neurologic: no focal motor deficits and not confused Psychiatric: Orientation: alert and oriented x 3 Affect: euthymic affect Results & Data ([facility]) Vital Signs (Past 12 Hours) Vital Signs Temp Pulse Pulse Resp BP Pulse Ox O2 Del Method 06/25/22 08:00 57 L 06/25/22 08:50 59 L 97/65 L 06/25/22 07:48 36.5 C 97 H 18 110/69 99 Room Air 06/25/22 02:44 36.5 C 83 18 90/54 L 97 Room Air 06/24/22 23:47 36.8 C 90 18 92/46 L 96 PG Care Time/CCT Total # of Minutes Spent Total Time Spent with Patient: Total time spent is greater than 50% in coordination of care (as documented) at patient's floor/unit and/or counseling patient: Coding Level of Care Code 85391 Inpt Consult Level 5 Diagnoses Hyponatremia E87.1 Cirrhosis K74.60 Anemia D64.9 Anemia type: unspecified type Ascites R18.8 Chronic renal failure, stage 3b N18.32 Severe protein-calorie malnutrition E43 (1) Anemia Anemia type: unspecified type Qualified Code(s): D64.9 - Anemia, unspecified
[2022-06-25] MEDS: FUROSEMIDE 20 MG TAB PO SCH (13:38)
--- NOTE | 2022-06-25 17:04 | Ultrasound Report ---
US abdomen ltd ascites HISTORY: 81 years-old Male eval for need for paracentesis acute generalized abdominal pain with poss ible ascites COMPARISON: CT abdomen and pelvis 06/19/2022 TECHNIQUE: Multiple real-time sonographic images of the abdomen were obtained assessing grayscale yamileth earance FINDINGS: Ascites within all four quadrants of the abdomen appears to be moderate. Cirrhotic morphology of the liver redemonstrated. IMPRESSION: Cirrhosis with moderate ascites. ACT 112: Negative or not required by law. The above report was generated using voice recognition software. It may contain grammatical, syntax o r spelling errors. Electronically signed by: Marquis Cullen M.D. 06/25/2022 5:02 PM
--- NOTE | 2022-06-25 17:56 | Cardiology Progress Note ---
Date of Service June 25, 2022 Assessment & Plan (1) Paroxysmal ventricular tachycardia: (2) Atrial fibrillation: (3) Atrial flutter: (4) Cardiomyopathy: (5) CAD (coronary atherosclerotic disease): (6) Presence of single chamber implantable cardioverter-defibrillator (ICD): (7) S/P CABG (coronary artery bypass graft): Plan ASSESSMENT/PLAN: 1. Ventricular tachycardia: Has had ICD shocks here while hospitalized, most recent this morning. The wide complex tachycardia appears after several attempts of ATP for what appears to be AFib with RVR. He was placed on intravenous amiodarone by Dr. Mcnair and has been on oral amiodarone as an outpatient as well chronically. Continue beta-lina. Diltiazem has been held for hypotension and he has had systolic blood pressures less than [address] Mcnair aware and is considering invasive options. Patient/ does not want his ICD to be disabled for therapy at this time. 2. Atrial fibrillation/flutter: Continue beta-lina. Diltiazem initiated during this hospital stay however has been quite orthostatic per nursing staff and otherwise mildly hypotensive. Not on anticoagulation therapy however invasive procedure planned for tomorrow. 3. CAD s/p CABG: No angina. Continue beta-lina and aspirin therapy. Most recent LDL well controlled. With multiple comorbidities, not certain that statin therapy would impact long-term care, but will defer to primary weaver dobby loom. 4. Cardiomyopathy: Mildly reduced LV systolic function based on recent echo. Likely ischemic in origin. He does not appear to be hypervolemic. 5. ICD: As per Dr. Mcnair. 6. Disposition: Plan of care communicated with Perlita Jones, of the primary hospitalist service. Discussed with Dr. Mcnair, his primary weaver dobby loom/roller inspector and mender. Admission and Anticipated Discharge Date Admission Date: June 19, 2022 Subjective Patient seen earlier today with his at the bedside. His code status has been changed to DNR/DNI. He states that he would like to have further adjustments done to his ICD, rather than disable treatment. He had another ICD shock this morning. He appeared to have rapid AFib with ATP attempts by his defibrillator, and then developed wide complex tachycardia and shock. This is his fourth shock in the past few days. He denies chest pain, shortness of breath, syncope, or edema. He states that he feels lightheaded and diaphoretic just before each shock. Nursing staff reports that his systolic blood pressure dropped to the 60s yesterday when standing up. Physical Exam Physical Exam: Gen.: No acute distress. Alert. HEENT: Anicteric sclera. Neck: No JVD. Cardiac: PMI was nondisplaced. No ventricular heave. Irregularly irregular. Normal rate. Normal S1-S2. No murmurs, rubs, or gallops. Pulmonary: Decreased breath sounds bilaterally, but otherwise clear to auscultation bilaterally without wheezes, rales, or rhonchi. Abdomen: Soft, nontender, nondistended, with normoactive bowel sounds. No bruits noted. Extremities: 2+ right radial pulse. s/p left radial harvest for CABG. 2+ posterior tibialis pulses bilaterally. Trace bilateral lower extremity edema. No cyanosis. Results & Data ([facility]) Vital Signs (Past 12 Hours) Vital Signs Temp Pulse Pulse Resp BP BP Pulse Ox 06/25/22 15:31 36.4 C L 70 17 90/56 L 99 06/25/22 15:00 100 H 06/25/22 13:35 84 87/49 L 06/25/22 11:32 36.3 C L 82 20 93/54 L 98 06/25/22 08:00 57 L 06/25/22 08:50 59 L 97/65 L 06/25/22 07:48 36.5 C 97 H 18 110/69 99 O2 Del Method 06/25/22 15:31 Room Air 06/25/22 15:00 06/25/22 13:35 06/25/22 11:32 Room Air 06/25/22 08:00 06/25/22 08:50 06/25/22 07:48 Room Air Intake & Output 06/23/22 06/24/22 06/25/22 06/26/22 06:59 06:59 06:59 06:59 Intake Total 552.5 / 552.5 527.5 / 527.5 1246.398 / 1246.398 440 / 440 Output Total 550 / 550 150 / 150 875 / 875 200 / 200 Balance 2.5 / 2.5 377.5 / 377.5 371.398 / 371.398 240 / 240 Weight 163 lb 9.328 oz 164 lb 7.437 oz Laboratory Results Laboratory Results - last 24 hr 06/24/22 06/25/22 06/25/22 20:22 06:09 06:09 WBC 3.67 L RBC 3.34 L Hgb 10.9 L Hct 31.7 L MCV 94.9 MCH 32.6 MCHC 34.4 RDW Std Deviation 56.5 H RDW Coeff of David 16.4 H Plt Count 84 L MPV 13.1 H Immature Gran % (Auto) 0.3 Neut % (Auto) 50.7 Lymph % (Auto) 31.1 Ralls % (Auto) 16.6 Eos % (Auto) 0.8 Baso % (Auto) 0.5 Neut # (Auto) 1.86 Lymph # (Auto) 1.14 L Ralls # (Auto) 0.61 Eos # (Auto) 0.03 Baso # (Auto) 0.02 Immature Gran # (Auto) 0.01 Polychromasia 1+ Poikilocytosis Present Ovalocytes 1+ PT 11.8 INR 1.1 Sodium Potassium Chloride Carbon Dioxide Anion Gap BUN Creatinine Est Cr Clr Drug Dosing Est GFR ( Amer) Est GFR (Non-Af Amer) BUN/Creatinine Ratio Glucose POC Glucose 165 H Osmolality Calcium Magnesium Total Bilirubin AST ALT Alkaline Phosphatase B-Natriuretic Peptide Total Protein Albumin Globulin Albumin/Globulin Ratio TSH Free T4 Urine Color Urine Appearance Urine pH Ur Specific [place] Urine Protein Urine Glucose (UA) Urine Ketones Urine Blood Urine Nitrite Urine Bilirubin Urine Urobilinogen Ur Leukocyte Esterase Urine WBC (Auto) Urine RBC (Auto) U Hyaline Cast (Auto) U Epithel Cells (Auto) Urine Bacteria (Auto) Urine Osmolality Ur Random Sodium 06/25/22 06/25/22 06/25/22 06:09 07:19 08:28 WBC RBC Hgb Hct MCV MCH MCHC RDW Std Deviation RDW Coeff of David Plt Count MPV Immature Gran % (Auto) Neut % (Auto) Lymph % (Auto) Ralls % (Auto) Eos % (Auto) Baso % (Auto) Neut # (Auto) Lymph # (Auto) Ralls # (Auto) Eos # (Auto) Baso # (Auto) Immature Gran # (Auto) Polychromasia Poikilocytosis Ovalocytes PT INR Sodium 135 L Potassium 3.5 Chloride 100 Carbon Dioxide 22 Anion Gap 9 BUN 25 H Creatinine 1.50 H Est Cr Clr Drug Dosing 41.4 Est GFR ( Amer) 50.2 Est GFR (Non-Af Amer) 43.3 BUN/Creatinine Ratio 16.7 Glucose 165 H POC Glucose 143 H Osmolality Calcium 7.9 L Magnesium 2.2 Total Bilirubin 0.4 AST 21 ALT 11 Alkaline Phosphatase 72 B-Natriuretic Peptide 1957 H Total Protein 5.8 L Albumin 2.5 L Globulin 3.3 Albumin/Globulin Ratio 0.8 L TSH Free T4 Urine Color Urine Appearance Urine pH Ur Specific [place] Urine Protein Urine Glucose (UA) Urine Ketones Urine Blood Urine Nitrite Urine Bilirubin Urine Urobilinogen Ur Leukocyte Esterase Urine WBC (Auto) Urine RBC (Auto) U Hyaline Cast (Auto) U Epithel Cells (Auto) Urine Bacteria (Auto) Urine Osmolality Ur Random Sodium 06/25/22 06/25/22 06/25/22 08:28 08:33 09:30 WBC RBC Hgb Hct MCV MCH MCHC RDW Std Deviation RDW Coeff of David Plt Count MPV Immature Gran % (Auto) Neut % (Auto) Lymph % (Auto) Ralls % (Auto) Eos % (Auto) Baso % (Auto) Neut # (Auto) Lymph # (Auto) Ralls # (Auto) Eos # (Auto) Baso # (Auto) Immature Gran # (Auto) Polychromasia Poikilocytosis Ovalocytes PT INR Sodium Potassium Chloride Carbon Dioxide Anion Gap BUN Creatinine Est Cr Clr Drug Dosing Est GFR ( Amer) Est GFR (Non-Af Amer) BUN/Creatinine Ratio Glucose POC Glucose Osmolality 284 Calcium Magnesium Total Bilirubin AST ALT Alkaline Phosphatase B-Natriuretic Peptide Total Protein Albumin Globulin Albumin/Globulin Ratio TSH 5.540 H Free T4 1.44 Urine Color Yellow Urine Appearance Clear Urine pH 5.0 Ur Specific [place] 1.015 Urine Protein Trace H Urine Glucose (UA) Negative Urine Ketones Negative Urine Blood Negative Urine Nitrite Negative Urine Bilirubin Negative Urine Urobilinogen Negative Ur Leukocyte Esterase Negative Urine WBC (Auto) 1-5 Urine RBC (Auto) 0-4 U Hyaline Cast (Auto) 0 U Epithel Cells (Auto) 5-10 H Urine Bacteria (Auto) Negative Urine Osmolality Ur Random Sodium 06/25/22 06/25/22 06/25/22 09:30 09:30 11:22 WBC RBC Hgb Hct MCV MCH MCHC RDW Std Deviation RDW Coeff of David Plt Count MPV Immature Gran % (Auto) Neut % (Auto) Lymph % (Auto) Ralls % (Auto) Eos % (Auto) Baso % (Auto) Neut # (Auto) Lymph # (Auto) Ralls # (Auto) Eos # (Auto) Baso # (Auto) Immature Gran # (Auto) Polychromasia Poikilocytosis Ovalocytes PT INR Sodium Potassium Chloride Carbon Dioxide Anion Gap BUN Creatinine Est Cr Clr Drug Dosing Est GFR ( Amer) Est GFR (Non-Af Amer) BUN/Creatinine Ratio Glucose POC Glucose 145 H Osmolality Calcium Magnesium Total Bilirubin AST ALT Alkaline Phosphatase B-Natriuretic Peptide Total Protein Albumin Globulin Albumin/Globulin Ratio TSH Free T4 Urine Color Urine Appearance Urine pH Ur Specific [place] Urine Protein Urine Glucose (UA) Urine Ketones Urine Blood Urine Nitrite Urine Bilirubin Urine Urobilinogen Ur Leukocyte Esterase Urine WBC (Auto) Urine RBC (Auto) U Hyaline Cast (Auto) U Epithel Cells (Auto) Urine Bacteria (Auto) Urine Osmolality 349 L Ur Random Sodium 19 06/25/22 06/25/22 14:43 16:14 WBC RBC Hgb Hct MCV MCH MCHC RDW Std Deviation RDW Coeff of David Plt Count MPV Immature Gran % (Auto) Neut % (Auto) Lymph % (Auto) Ralls % (Auto) Eos % (Auto) Baso % (Auto) Neut # (Auto) Lymph # (Auto) Ralls # (Auto) Eos # (Auto) Baso # (Auto) Immature Gran # (Auto) Polychromasia Poikilocytosis Ovalocytes PT INR Sodium 133 L Potassium Chloride Carbon Dioxide Anion Gap BUN Creatinine Est Cr Clr Drug Dosing Est GFR ( Amer) Est GFR (Non-Af Amer) BUN/Creatinine Ratio Glucose POC Glucose 136 H Osmolality Calcium Magnesium Total Bilirubin AST ALT Alkaline Phosphatase B-Natriuretic Peptide Total Protein Albumin Globulin Albumin/Globulin Ratio TSH Free T4 Urine Color Urine Appearance Urine pH Ur Specific [place] Urine Protein Urine Glucose (UA) Urine Ketones Urine Blood Urine Nitrite Urine Bilirubin Urine Urobilinogen Ur Leukocyte Esterase Urine WBC (Auto) Urine RBC (Auto) U Hyaline Cast (Auto) U Epithel Cells (Auto) Urine Bacteria (Auto) Urine Osmolality Ur Random Sodium Diagnostic Findings Telemetry personally reviewed: Summarized in subjective. Echo 05/12/2022: LVEF 45-50%. Hypokinesis of the base to mid inferior wall and dyskinesis of the basal inferolateral wall. Mild to moderate MR. Moderate TR. Medications Administered Current Inpatient Medications Acetaminophen (Acetaminophen 325 Mg Tab) 650 mg PO Q4H PRN PRN Reason: pain/fever Stop: 07/19/22 22:06 Albuterol (Albuterol Hfa 8 Gm Inhaler) 2 puffs INH Q4R PRN PRN Reason: Wheezing Stop: 07/23/22 16:29 Amiodarone HCl (Amiodarone 200 Mg Tab) 200 mg PO BIDM JANEEN Stop: 07/20/22 07:59 Last Admin: 06/25/22 17:22 Dose: 200 mg Amoxicillin/Clavulanate Potassium (Amoxicillin/Clavulanate 875 Mg Tab) 1 tab PO BIDM [facility] Stop: 06/28/22 16:59 Last Admin: 06/25/22 17:22 Dose: 1 tab Aspirin (Aspirin 81 Mg Ectab) 81 mg PO DAILY [facility] Stop: 07/20/22 08:59 Last Admin: 06/25/22 08:53 Dose: 81 mg Carvedilol (Carvedilol 12.5 Mg Tab) 12.5 mg PO BID JANEEN Stop: 07/20/22 08:59 Last Admin: 06/25/22 11:34 Dose: 12.5 mg Dextrose (Dextrose 50% 50 Ml Syringe) 25 - 50 ml IV UD PRN; Protocol PRN Reason: Hypoglycemia Protocol Stop: 07/20/22 03:37 Diltiazem HCl (Diltiazem Hcl 30 Mg Tab) 30 mg PO TID [facility] Stop: 07/24/22 12:09 Last Admin: 06/25/22 13:41 Dose: Not Given Furosemide (Furosemide 20 Mg Tab) 20 mg PO QAM JANEEN Stop: 07/25/22 11:44 Last Admin: 06/25/22 13:38 Dose: Not Given Glucagon (Glucagon For Inj 1 Mg Vial) 1 mg SQ UD PRN; Protocol PRN Reason: Hypoglycemia Protocol Stop: 07/20/22 03:37 Glucose (Glucose 40% Gel 15 Gm Tube) 15 - 30 gm PO UD PRN; Protocol PRN Reason: Hypoglycemia Protocol Stop: 07/20/22 03:37 Glucose (Glucose 10 Tab/Tube) 4 - 8 tab PO UD PRN; Protocol PRN Reason: Hypoglycemia Treatment Stop: 07/20/22 03:37 Heparin Sodium (Porcine) (Heparin 100 Unit/Ml 5ml Flush) 5 ml FLUSH PRN PRN PRN Reason: Flush Stop: 07/20/22 06:59 Last Admin: 06/22/22 07:25 Dose: 5 ml Azithromycin 250 mg/ Dextrose 252.5 mls @ 125 mls/hr IV Q24H JANEEN Stop: 06/27/22 19:59 Last Infusion: 06/25/22 00:46 Dose: Infused Amiodarone HCl/Dextrose (Nexterone / D5w) 360 mg in 200 mls @ 16.667 mls/hr IV .Q12H JANEEN Stop: 07/24/22 15:44 Last Admin: 06/25/22 13:02 Dose: 0.5 mg/min, 16.7 mls/hr Insulin Aspart (Insulin Aspart Per Unit) 0 units SC ACHS JANEEN Stop: 07/20/22 07:29 Last Admin: 06/25/22 17:23 Dose: Not Given Mirtazapine (Mirtazapine Tab 15 Mg Tab) 15 mg PO HS JANEEN Stop: 07/20/22 20:59 Last Admin: 06/24/22 21:00 Dose: 15 mg Miscellaneous (Carbohydrates For Hypoglycemia ) 15 - 30 gm PO UD PRN PRN Reason: Hypoglycemia Protocol Stop: 07/20/22 03:37 Ondansetron HCl (Ondansetron Inj 2 Mg/Ml 2 Ml Vial) 4 mg IV Q6H PRN PRN Reason: Nausea Stop: 07/19/22 22:06 Spironolactone (Spironolactone 25 Mg Tab) 25 mg PO DAILY JANEEN Stop: 07/23/22 08:59 Last Admin: 06/23/22 07:49 Dose: 25 mg Tamsulosin HCl (Tamsulosin Hcl 0.4 Mg Cap) 0.4 mg PO HS JANEEN Stop: 07/20/22 20:59 Last Admin: 06/24/22 21:00 Dose: 0.4 mg PG Care Time/CCT Total # of Minutes Spent Total Time Spent with Patient: Total time spent is greater than 50% in coordination of care (as documented) at patient's floor/unit and/or counseling patient: Coding Level of Care Code 77164 Subseq Hosp Care Lvl 3 Diagnoses Paroxysmal ventricular tachycardia I47.2 Atrial fibrillation I48.91 Atrial flutter I48.3 Atrial flutter type: typical Cardiomyopathy I42.9 CAD (coronary atherosclerotic disease) I25.10 Presence of single chamber implantable cardioverter-defibrillator (ICD) Z95.810 S/P CABG (coronary artery bypass graft) Z95.1 (1) Atrial flutter Atrial flutter type: typical Qualified Code(s): I48.3 - Typical atrial flutter
[2022-06-25] MEDS ORDERED: SODIUM CHLORIDE 0.9% 500 ML IV SCH (20:15)
[2022-06-25] MEDS: AZITHROMYCIN 250 MG in DEXTROSE 5% 250 ML IV SCH (20:59)
[2022-06-25] MEDS: TAMSULOSIN HCL 0.4 MG CAP PO SCH (21:01)
[2022-06-25] MEDS: MIRTAZAPINE TAB 15 MG TAB PO SCH (21:01)
[2022-06-26] MEDS: AMIODARONE / D5W 360 MG/200 ML BAG IV SCH ×2 (00:35→16:38)
[2022-06-26 05:57] LABS: Hematocrit (blood only) 32.3 % (40.1-51.0); Hemoglobin 10.9 g/dl (14.0-18.0); White Blood Count 3.71 K/ul (4.8-10.8)
[2022-06-26 06:06] LABS: Mean Corpuscular Hemoglobin 32.2 pg (25.0-34.0); Mean Corpuscular Hgb Conc 33.7 g/dL (32.0-36.0); Mean Corpuscular Volume 95.3 fL (80.0-100.0); Mean Platelet Volume 13.3 fL (9.4-12.4); Platelet Count 84 K/uL (130-400); RDW Coefficient of Variation 16.6 % (11.5-14.5); RDW Standard Deviation 57.7 fL (36.4-46.3); Red Blood Count 3.39 M/uL (4.63-6.08)
[2022-06-26 06:43] LABS: Ferritin 131.8 ng/ml (8-388)
[2022-06-26 06:45] LABS: Albumin Level 2.5 gm/dl (3.4-5.0); BUN Creatinine Ratio 15.6 (10-20); Calcium 7.7 mg/dl (8.5-10.1); Creatinine Clr Calc Pharmacy 43.9 ml/min; Est GFR (African American) 51.5 ml/min; Est GFR (Non-African American) 44.4 ml/min; Phosphorus 3.2 mg/dl (2.5-4.9); Potassium 3.8 mmol/L (3.5-5.1)
--- NOTE | 2022-06-26 07:44 | Hospitalist Progress Note ---
Date of Service June 26, 2022 Assessment & Plan (1) Ventricular tachyarrhythmia: Plan: 81-year-old male with history of metastatic testicular cancer presenting with progressive abdominal pain and distention. Found to have large amount of ascites which was removed via paracentesis in the ER. Moved to telemetry after planned d/c to [facility] after ICD shock/fall from chair to ground. CT head negative Mildly reduced LV systolic function based on recent echo. Likely ischemic in origin. No CP reported but baseline SOB Additional shocks provided however per Dr cMnair not all true Vtach, some supraventricular arrhythmia Most recent ICD firing AM 06/24, complex tachycardia. Gets diaphoretic sensation/lightheadedness right before shock They did not want to disable ICD therapy for him which would put him obviously at risk for not shocking a true Vtach Had remained on IV amiodarone (TSH now elevated? was normal earlier in stay? playing role in cirrhosis?/GI side effects). Amiodarone level pending -- send out test Started on Cardizem 30mg TID, has been held for hypotension and systolic BP <90 on accession Patient s/p AV rosa ablation with Dr Mcnair 06/26. Paced @ 80 this afternoon, tolerated procedure well Discussed with Dr Mcnair, d/c amiodarone gtt and diltiazem but was still on medication list *Patient reported feeling lightheaded slightly following procedure and appears his diltiazem 30mg was given and BP 106/78 in room. Discontinued diltiazem moving forward but continue the PO amiodarone and carvedilol for now Continue to monitor on telemetry (2) Ascites: Plan: Paracentesis performed with 4L ascitis fluid removed, WBC 71 in ER 06/19 Cytology sent -- without evidence for malignancy. No pain, or evidence for infection or need to cover for SBP Completed 4 cycles of chemo in the summer recent PET scan with improvement in lymphadenopathy, discussed with Dr Morris Patient did have marked ascites on PET scan, only recently placed on lasix, not been on spironolactone but was to d/c on spironolactone 50mg daily per ER discussion with Dr Ledezma following paracentesis in ER for 4L ascitic fluid Patient previously on 40mg daily in the past, recently decreased to 20mg Portal US without evidence of obstruction as done in patient without evicence for liver mets on imaging ?if amiodarone contributing to liver dz/cirrhosis. patient without reported etoh use in >20-30 years GI on consult -- will need outpt f/u Hoping to resume lasix 20mg in AM Aldactone 25mg and titrate up as tolerating regarding his BP which had been hypotensive due to elevated HR/volume overload but difficulty with diuresis as was started on aldactone close to dc to [facility] and had ICD shock/fall as above 10/7 If not able to tolerate diuresis/becomes uncomfortable consider repeat para but wanting to limit development of SBP in patient with multiple comorbidities Continue to monitor Appreciate continued GI f/u (3) Cirrhosis: Plan: noted mod-marked abdominal and pelvic ascites on March PET scan. No drinking 20- 30yrs, ?medication related/macias. US portal vein w/o obstruction LFTs wnl, INR 1.1 on recent check Diuretics hopefully to resume AM 06/27 as outlined above GI consulted/follow up Ammonia wnl (4) Weakness: Plan: Progressive weakness over the last several months, likely 2nd to development of ascites and chronic illness/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 from recent chemo this summer and possibly in/out elevated HR/afib/flutter 40lb weight loss R sided pneumonia on admit --> received abx, augmentin/azithromycin. completed more than 7 days, stopped Resume lasix/spironolactone in AM as above for BP, improved since AV ablation this morning Vat Washer consulted, continue protein supplementation CT head negative for CVA, bleeding (hx brain bleeding) PT/OT consulted, planned for [facility]. may not be good candidate for intensive therapy but will monitor Also consulted palliative for goals of care given complex medical nature/progressive decline over the past two years (5) Pneumonia: Plan: CT of the chest with small patchy ground-glass and nodular densities within the right lower lobe and right middle lobe which is new from prior study. Favoring pneumonia. Patient is afebrile, nontoxic in appearance Placed on Ceftriaxone/Azithro, switched to Augmentin for anaerobic coverage and also to cover prior hip infxn (enteroccocus, sent on keflex outpatient). Completed course inpatient On room air Stated breathing about the same sob, suspect rhtyhm control/volume overload contributing BNP elevated Diuretics to resume in AM Monitor response, albuterol HFA available (6) Atrial flutter: Plan: Patient with history of atrial flutter. Continue amiodarone 200 mg p.o. twice daily, carvedilol See #1 Keep K~4, mag ~2 Monitor on telemetry --> paced following ablation@ 80 (7) Diabetes mellitus: Plan: Chronic. Blood sugar = 193 at present. Last hemoglobin A1c on 04/20/2022 = 5.1% Insulin sliding scale, accu checks AC/HS Monitor BSGs (8) Chronic kidney disease, stage III (moderate): Plan: Renal function at baseline 1.24 --> elevated to 1.47 Gentle IV this morning with 250cc while npo for procedure/low BP lightheadedness , no further also suspect degree ATN from low BPs w/ elevated HRs Nephrology on consult, rec resuming diuretics, plan to do so AM 06/27 (9) CAD (coronary atherosclerotic disease): Plan: Chronic. 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 -- continue supplementation (12) Pressure ulcer: Plan: right hip, seen at PCP, cx enterococcus sensitive to PCNs also topical silver cream per PCP sleeps on that side c/w stage III pressure injury schedule for wound care f/u 06/28 -- can be seen inpatient also has scab to R knee and RLE (scabbed over, nonpainful, no drainage) suspect drainage/scabbing from excessive fluids/ascites --> NONE FURTHER swelling resolved and has remained stable Nonpainful on exam, no erythema/drainage expressed augmentin as outlined above now completed Monitor/frequent turns (13) S/P CABG (coronary artery bypass graft): Plan: noted (14) Hyponatremia: Plan: stable compared to prior values, likely from volume overload BNP elevated but multiple reasons for such planning to resume diuretics in AM monitor Bmp (15) Cardiomyopathy: (16) Atrial fibrillation: Plan: now paced Plan continued inpatient stay, s/p AV rosa ablation stopping IV amiodarone gtt, diltiazem BP improved --> plans to resume lasix/aldactone in AM. Monitor for need for repeat paracentesis Palliative consulted for goals of care [facility] planned initially when medically stable Admission and Anticipated Discharge Date Admission Date: June 19, 2022 Subjective eval this morning, at bedside patient states they brought breakfast and he thought he was to be NPO but checked with RN who was unaware as I forgot to place NPO order in chart last night. Patient admits he had improvement in appetite and actually ate all his oatmeal saw GI this morning and possible repeat need for paracentesis. Nephrology saw as well, Dr Hurd. Otherwise planning for AV rosa procedure this afternoon with Dr Mcnair. --> patient then seen following ablation, tolerated well. laying flat in bed, NAD. Does have some lightheadedness but no nausea/vomiting. Has not yet been out of bed. Discussed with patient/ possible paracentesis for tomorrow vs waiting to see if able to resume diuretics given risk for frequent para and SBP. Willing to try and resume diuretic therapy tomorrow but if unable to tolerate or BP unstable will consider paracentesis possibly on Sunday. Director at [facility] to visit at end of conversation. Review of Systems Review of Systems: All systems reviewed & are unremarkable except as noted in HPI & below Physical Exam Physical Exam: General: chronically ill appearing male sitting up in bed, thin, cachectic, at bedside, improved spirits and reported appetite and ate oatmeal this morning, NAD HEENT; head normocephalic, atraumatic, mmm, trachea midline without deviation poor dentition, prior dental extraction noted, nonpainful on palpation no drainage Chest: aport R chest, ICD in place Resp: CTAB, decreased in the bases, faint RLL crackles improving, on RA CV: irregularly irregular (rate 102bpm), NO calf edema tenderness, no pedal pitting edema GI: +BS, distension (about the same), firm but softer than days prior, + ascites /general body wall edema, non-tender to palpation, no guarding/warmth : no lovelace MSK/Neuro: moves all extremities, no focal deficits Skin: pressure ulcer to R groin, covered with band aid scab to R knee, scab also to anterior LLE rivas atrophic appearance to b/l LE skin Results & Data Results & Data ([facility]) Vital Signs (Past 12 Hours) Vital Signs Temp Pulse Pulse Resp BP Pulse Ox O2 Del Method 06/26/22 07:17 36.8 C 102 H 14 92/62 L 95 Room Air 06/25/22 23:00 93 H 06/26/22 04:00 36.3 C L 89 22 84/60 L 96 Nasal Cannula 06/25/22 21:00 Room Air 06/25/22 23:39 35.8 C L 96 H 18 99/61 L 98 Room Air 06/25/22 20:59 92/65 L Laboratory Results 06/26/22 06/26/22 06/26/22 Range/Units 11:22 07:43 05:26 WBC (4.8-10.8) K/ul RBC (4.63-6.08) M/uL Hgb (14.0-18.0) g/dl Hct (40.1-51.0) % MCV (80.0-100.0) fL MCH (25.0-34.0) pg MCHC (32.0-36.0) g/dL RDW Std Deviation (36.4-46.3) fL RDW Coeff of David (11.5-14.5) % Plt Count (130-400) K/uL MPV (9.4-12.4) fL Sodium (136-145) mmol/L Potassium (3.5-5.1) mmol/L Chloride (98-107) mmol/L Carbon Dioxide (21-32) mmol/L Anion Gap (3-11) BUN (6-23) mg/dl Creatinine (0.6-1.4) mg/dl Est Cr Clr Drug Dosing ml/min Est GFR ( Amer) ml/min Est GFR (Non-Af Amer) ml/min BUN/Creatinine Ratio (10-20) Glucose (70-99(Fasting)) mg/dl POC Glucose 141 H 129 H (70-99) mg/dl Calcium (8.5-10.1) mg/dl Phosphorus (2.5-4.9) mg/dl Magnesium 2.0 (1.7-2.4) mg/dl Iron (35-175) mcg/dl Transferrin (200-360) mg/dl Ferritin (8-388) ng/ml Albumin (3.4-5.0) gm/dl Folate (>5.38) ng/ml 06/26/22 06/26/22 06/26/22 Range/Units 05:26 05:26 05:26 WBC 3.71 L (4.8-10.8) K/ul RBC 3.39 L (4.63-6.08) M/uL Hgb 10.9 L (14.0-18.0) g/dl Hct 32.3 L (40.1-51.0) % MCV 95.3 (80.0-100.0) fL MCH 32.2 (25.0-34.0) pg MCHC 33.7 (32.0-36.0) g/dL RDW Std Deviation 57.7 H (36.4-46.3) fL RDW Coeff of David 16.6 H (11.5-14.5) % Plt Count 84 L (130-400) K/uL MPV 13.3 H (9.4-12.4) fL Sodium 135 L (136-145) mmol/L Potassium 3.8 (3.5-5.1) mmol/L Chloride 106 (98-107) mmol/L Carbon Dioxide 21 (21-32) mmol/L Anion Gap 8 (3-11) BUN 23 (6-23) mg/dl Creatinine 1.47 H (0.6-1.4) mg/dl Est Cr Clr Drug Dosing 43.9 ml/min Est GFR ( Amer) 51.5 ml/min Est GFR (Non-Af Amer) 44.4 ml/min BUN/Creatinine Ratio 15.6 (10-20) Glucose 143 H (70-99(Fasting)) mg/dl POC Glucose (70-99) mg/dl Calcium 7.7 L (8.5-10.1) mg/dl Phosphorus 3.2 (2.5-4.9) mg/dl Magnesium (1.7-2.4) mg/dl Iron 39 (35-175) mcg/dl Transferrin 166 L (200-360) mg/dl Ferritin 131.8 (8-388) ng/ml Albumin 2.5 L (3.4-5.0) gm/dl Folate 8.96 (>5.38) ng/ml 06/25/22 Range/Units 20:22 WBC (4.8-10.8) K/ul RBC (4.63-6.08) M/uL Hgb (14.0-18.0) g/dl Hct (40.1-51.0) % MCV (80.0-100.0) fL MCH (25.0-34.0) pg MCHC (32.0-36.0) g/dL RDW Std Deviation (36.4-46.3) fL RDW Coeff of David (11.5-14.5) % Plt Count (130-400) K/uL MPV (9.4-12.4) fL Sodium (136-145) mmol/L Potassium (3.5-5.1) mmol/L Chloride (98-107) mmol/L Carbon Dioxide (21-32) mmol/L Anion Gap (3-11) BUN (6-23) mg/dl Creatinine (0.6-1.4) mg/dl Est Cr Clr Drug Dosing ml/min Est GFR ( Amer) ml/min Est GFR (Non-Af Amer) ml/min BUN/Creatinine Ratio (10-20) Glucose (70-99(Fasting)) mg/dl POC Glucose 138 H (70-99) mg/dl Calcium (8.5-10.1) mg/dl Phosphorus (2.5-4.9) mg/dl Magnesium (1.7-2.4) mg/dl Iron (35-175) mcg/dl Transferrin (200-360) mg/dl Ferritin (8-388) ng/ml Albumin (3.4-5.0) gm/dl Folate (>5.38) ng/ml PG Care Time/CCT Total # of Minutes Spent Total Time Spent with Patient: Total time spent is greater than 50% in coordination of care (as documented) at patient's floor/unit and/or counseling patient: Coding Level of Care Code 16942 Subseq Hosp Care Lvl 3 Diagnoses Ventricular tachyarrhythmia I47.20 Ascites R18.8 Cirrhosis K74.60 Weakness R53.1 Pneumonia J18.9 Atrial flutter I48.3 Atrial flutter type: typical Diabetes mellitus E11.22; N18.3 Diabetes mellitus type: type 2 Diabetes mellitus chcf insulin use: without chcf use Diabetes mellitus complication status: with kidney complications Diabetes mellitus complication detail: with chronic kidney disease Chronic kidney disease stage: stage 3 (moderate) Chronic kidney disease, stage III (moderate) N18.3 CAD (coronary atherosclerotic disease) I25.10 Germ cell cancer C80.1 Pancytopenia due to antineoplastic chemotherapy D61.810; T45.1X5A Pressure ulcer L89.90 S/P CABG (coronary artery bypass graft) Z95.1 Hyponatremia E87.1 Cardiomyopathy I42.9 Atrial fibrillation I48.91 (1) Atrial flutter Atrial flutter type: typical Qualified Code(s): I48.3 - Typical atrial flutter (2) Diabetes mellitus Diabetes mellitus type: type 2 Diabetes mellitus air boatswain insulin use: without air boatswain use Diabetes mellitus complication status: with kidney complications Diabetes mellitus complication detail: with chronic kidney disease Chronic kidney disease stage: stage 3 (moderate) Qualified Code(s): E11.22 - Type 2 diabetes mellitus with diabetic chronic kidney disease; N18.3 - Chronic kidney disease, stage 3 (moderate)
[2022-06-26] MEDS ORDERED: POTASSIUM CHLORIDE CRTAB 20 MEQ TABCR PO STA (07:48)
[2022-06-26] MEDS ORDERED: SODIUM CHLORIDE 0.9% 500 ML IV SCH (08:00)
--- NOTE | 2022-06-26 08:56 | Cardiology Progress Note ---
Date of Service June 26, 2022 Assessment & Plan (1) Presence of single chamber implantable cardioverter-defibrillator (ICD): (2) Atrial flutter: (3) Cardiomyopathy: Plan 1. Single-chamber ICD: His ICD is working properly to convert his ventricular tachycardia, however it does detect his atrial arrhythmia as a ventricular arrhythmia and I have not been able to program around that. Since his VT rate is about the same as his flutter rate when it goes fast I can change rates w ithout potentially missing his VT. 2. Atrial flutter and atrial fibrillation: I believe his rapid heart rates requiring cardioversion started out as atrial flutter and degenerate to VT, think the most appropriate action since we have not been able to block AV rosa conduction sufficiently is to perform AV rosa ablation. He will then be dependent on his pacemaker but this is acceptable. 3. Cardiomyopathy: His last echocardiogram showed moderate left ventricular dysfunction and he does not have evidence of heart failure on OptiVol recordings in his ICD. Although we will be pacing him in the ventricle consistently following ablation this is preferable to what is currently occurring. In the future if it is necessary due to development of a pacemaker induced cardiomyopathy we can consider adding a coronary sinus lead and using biventricular pacing. I do not think this is going to be necessary. He ate breakfast therefore I cannot perform his ablation before late in the afternoon, I will schedule it then. I did discuss the indications, procedure, risks and alternatives of ablation with him and he understands and agrees to proceed. I also discussed conscious sedation with him and he agrees. This will be a single catheter from the right groin and he can return to his room following the procedure. Admission and Anticipated Discharge Date Admission Date: June 19, 2022 Subjective He is in good spirits today, he did have another ICD shock yesterday for what I believe started as atrial flutter with rapid AV conduction progressing to VT and ICD shock. AV rosa blocking medications have not been effective in controlling his rate under the current circumstances. He is willing to have AV rosa ablation performed, that was planned for today however he ate a full breakfast just before I got there. He has no cardiovascular complaints today and has no palpitations even with his rapid heart rates. Physical Exam Physical Exam: Constitutional: Alert, cooperative and in no distress. He looks cachectic. HEENT: Unremarkable Neck: No jugular venous distention, carotid pulses are irregular but otherwise normal and equal bilaterally without bruits. Pulmonary: Clear to auscultation bilaterally. Cardiac: Irregular somewhat rapid rhythm with no murmur, gallop or rub. Abdomen: Soft, nontender with normal bowel sounds. Extremities: No edema. Distal pulses intact. Neurologic: No focal findings. Gait was not tested. Skin: No rash, ecchymoses or petechiae. Results & Data ([facility]) Vital Signs (Past 12 Hours) Vital Signs Temp Pulse Pulse Resp BP Pulse Ox O2 Del Method 06/26/22 07:17 36.8 C 102 H 14 92/62 L 95 Room Air 06/25/22 23:00 93 H 06/26/22 04:00 36.3 C L 89 22 84/60 L 96 Nasal Cannula 06/25/22 21:00 Room Air 06/25/22 23:39 35.8 C L 96 H 18 99/61 L 98 Room Air 06/25/22 20:59 92/65 L Laboratory Results Cardiac Enzymes 06/25/22 Range/Units 08:28 B-Natriuretic Peptide 1957 H (0-100) pg/ml Coagulation 06/25/22 Range/Units 08:28 B-Natriuretic Peptide 1957 H (0-100) pg/ml CBC 06/26/22 Range/Units 05:26 WBC 3.71 L (4.8-10.8) K/ul RBC 3.39 L (4.63-6.08) M/uL Hgb 10.9 L (14.0-18.0) g/dl Hct 32.3 L (40.1-51.0) % Plt Count 84 L (130-400) K/uL Comprehensive Metabolic Panel 06/25/22 06/25/22 06/26/22 Range/Units 06:09 14:43 05:26 Sodium 135 L 133 L 135 L (136-145) mmol/L Potassium 3.8 (3.5-5.1) mmol/L Chloride 106 (98-107) mmol/L Carbon Dioxide 21 (21-32) mmol/L BUN 23 (6-23) mg/dl Creatinine 1.47 H (0.6-1.4) mg/dl Glucose 143 H (70-99(Fasting)) mg/dl Calcium 7.7 L (8.5-10.1) mg/dl Albumin 2.5 L (3.4-5.0) gm/dl Intake and Output 06/25/22 06/26/22 06/26/22 22:59 06:59 14:59 Intake Total 360 / 1495.385 695.385 / 1495.385 Output Total 325 / 765 240 / 765 Balance 35 / 730.385 455.385 / 730.385 Intake: IV 695.385 / 895.385 Amiodarone / D5w 360 mg In 200 192.885 / 392.885 ml @ 0.5 MG/MIN 16.667 mls/hr IV .Q12H JANEEN Rx#:[id number] Azithromycin 250 mg In Dextrose 252.5 / 252.5 5% 250 ml @ 125 mls/hr IV Q24H JANEEN Rx#:[id number] Sodium Chloride 0.9% 500 ml @ 250 / 250 80 mls/hr IV .Q6H15M JANEEN Rx#: [id number] Oral 360 / 600 Output: Urine 325 / 765 240 / 765 Other: Weight 77.4 kg Weight Measurement Method Built in [facility] Diagnostic Findings Telemetry: Rhythm remains atrial fibrillation atrial flutter with generally rapid heart rates, well over 100 typically. He did have an ICD shock yesterday morning for what I believe started as atrial flutter. PG Care Time/CCT Total # of Minutes Spent Total Time Spent with Patient: Total time spent is greater than 50% in coordination of care (as documented) at patient's floor/unit and/or counseling patient: Coding Level of Care Code 34905 Subseq Hosp Care Lvl 3 Diagnoses Presence of single chamber implantable cardioverter-defibrillator (ICD) Z95.810 Atrial flutter I48.3 Atrial flutter type: typical Cardiomyopathy I42.9 (1) Atrial flutter Atrial flutter type: typical Qualified Code(s): I48.3 - Typical atrial flutter
[2022-06-26] MEDS: INSULIN ASPART PER UNIT SC SCH ×4 (09:23→23:09)
[2022-06-26] MEDS: AMIODARONE 200 MG TAB PO SCH ×2 (09:24→16:38)
[2022-06-26] MEDS: AMOXICILLIN/CLAVULANATE 875 MG TAB PO SCH ×2 (09:24→16:38)
[2022-06-26] MEDS: ASPIRIN 81 MG ECTAB PO SCH (09:24)
[2022-06-26] MEDS: dilTIAZem HCL 30 MG TAB PO SCH ×2 (09:25→16:38)
[2022-06-26] MEDS: carvediloL 12.5 MG TAB PO SCH ×2 (09:25→20:38)
--- NOTE | 2022-06-26 09:40 | Gastrointestinal Consultation ---
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 SAAG 1.4 and ascitic fluid protein of 3 are more suggestive of ascites from cardiac origin vs from cirrhosis but likely multifactorial. Plan Suggest diuretic adjustment for management of ascites, consider increasing diuretics to furosemide 20/spironolactone 50 (currently on 25), but would defer to primary hospitalists and cardiology. History of Present Illness Reason for Consultation: Ascites Requesting Physician: Perlita Jones PA-C Attending Physician: Jam Kohler MD History of Present Illness Mr. Tony Carroll is an 81 yr old male pt of Dr. Josafat Kohler w a hx of CKD-3, CAD, ischemic cardiomyopathy, DM-2, testicular CA S/P chemo, who presented to [facility] on 06/19/22 for ascites as well as progressive weakness over several months. He does not have a hx of liver dx. CT on arrival w cirrhosis, doppler US w patent portal and hepatic veins and moderate ascites. Paracentesis was completed on arrival on 06/19/22 w T Pro3, Alb 1.5, 71 WBCs. Serum albumin on that day was 2.9. SAAG 2.9-1.5 = 1.4. Pt is seen/examined while he is resting in bed. He is generally weak, though is awake, alert, oriented w/o any evidence of confusion. Allergies Allergy/AdvReac Type Severity Reaction Status Date / Time No Known Drug Allergies Allergy nkda Verified 06/15/22 17:02 Home Medications Medication Instructions Recorded Confirmed Type cyanocobalamin (vitamin B-12) 5,000 mcg PO QPM 11/13/18 06/08/22 History 5,000 mcg capsule multivitamin 1 tab PO QPM 03/04/19 06/08/22 History aspirin 81 mg tablet,delayed 81 mg PO QAM 07/05/20 06/08/22 History release lutein 25 mg-zeaxanthin 5 mg 1 cap PO HS 11/05/20 06/08/22 History capsule krill oil 500 mg capsule 500 mg PO QPM 07/18/21 06/08/22 History carvedilol 12.5 mg tablet 12.5 mg PO BID #180 tabs 08/29/21 06/08/22 Rx amiodarone 200 mg tablet 200 mg PO BID #180 tabs 11/04/21 06/08/22 Rx pen needle,diabetic dual safty 30 #100 ea 11/07/21 06/08/22 Rx gauge x 3/16" (BD AutoShield Duo Pen Needle) tamsulosin 0.4 mg capsule 0.4 mg PO HS #30 caps 11/08/21 06/08/22 Rx ondansetron 4 mg disintegrating 4 mg PO Q8H PRN nausea and 11/11/21 06/08/22 Rx tablet vomiting #30 tabs prochlorperazine maleate 10 mg 10 mg PO Q6H PRN Nausea 12/16/21 06/08/22 History tablet liraglutide 0.6 mg/0.1 mL (18 mg/3 See Rx Instructions .Route 04/18/22 06/08/22 Rx mL) subcutaneous pen injector .COMPLEX #18 mL (Victoza 2-Ronen) acetaminophen 500 mg tablet 1,000 mg PO Q6H PRN Pain 04/19/22 06/08/22 History (Tylenol Extra Strength) BiPap Machine #1 ea 05/23/22 06/08/22 Rx Marijuana-Medical Card 1 inh inhalation UD PRN Nausea 05/29/22 06/08/22 History chlorhexidine gluconate 0.12 % 15 ml buccal HS 05/29/22 06/08/22 History mouthwash (Paroex Oral Rinse) furosemide 20 mg tablet (Lasix) 20 mg PO QAM 05/29/22 06/08/22 History hydrocodone 5 mg-acetaminophen 325 1 tab PO Q4H PRN pain #20 tabs 06/05/22 06/08/22 Rx mg tablet ondansetron HCl 8 mg tablet 8 mg PO Q8H PRN nausea and 06/05/22 06/08/22 Rx vomiting #14 tabs mirtazapine 15 mg tablet 15 mg PO DAILY #30 tabs 06/15/22 06/15/22 Rx silver sulfadiazine 1 % topical 1 applic topical ONCE #50 grams 06/15/22 06/15/22 Rx cream (Silvadene) albuterol sulfate 90 mcg/actuation 2 inh inhalation Q6H PRN shortness 06/23/22 Rx aerosol inhaler of breath or wheezing #6.7 grams amoxicillin 875 mg-potassium 1 tab PO Q12H #7 tabs 06/23/22 Rx clavulanate 125 mg tablet azithromycin 250 mg tablet 250 mg PO DAILY #2 tabs 06/23/22 Rx spironolactone 25 mg tablet 25 mg PO DAILY #30 tabs 06/23/22 Rx Patient History Medical History (Updated 06/26/22 @ 10:04 by REFUGIO Ariza) Abdominal pain Atrial flutter Presented to the emergency room on August 16, 2020 after syncopal episode; arrhythmia identified on arrival- based on his ICD evaluation, converted with an ICD shock and "seems to have remained in sinus rhythm. His current interrogation demonstrates no further atrial flutter since that shock." No sycnope since that time (Per cardio note 07/18/21) Benign prostatic hyperplasia CAD (coronary artery disease) H/O [place] 1988, S/P CABG 3 vessel 1998 Chronic kidney disease, stage 4 (severe) Chronic kidney disease, stage III (moderate) Dehydration Depression HX Diabetes mellitus, type 2 Germ cell cancer Reason for port placement -CHEMO COMPLETED 04/17/2022 H/O acute myocardial infarction 1988 History of bladder stone History of cancer chemotherapy History of kidney stones History of subarachnoid hemorrhage History of ventricular fibrillation s/p ICD AUGUSTINE (hard of hearing) Hyperlipidemia Hyponatremia ICD (implantable cardioverter-defibrillator) in place INITIALLY IMPLANTED 2002 ; GENERATOR CHANGE 2011 AND DECEMBER 02, 2019- [employer] Ischemic cardiomyopathy (Unknown) S/p ICD implantation EF 40% per most recent echo 08/2020 Retroperitoneal lymphadenopathy SNHL (sensorineural hearing loss) Testicular cancer with mets to the lymph nodes. Needle biopsy at [facility] dx 11/2021. Surgical History (Updated 06/25/22 @ 17:46 by Eben Gary MD) Difficult airway for intubation PT REPORTS WAS TOLD PT WAS DIFFICULT INTUBATION - UNKNOWN FURTHER DETAILS - ? SURGERY WAS TOLD THIS- POSSIBLY BYPASS SURGERY PER -PER PT 30+ YRS AGO?-NO RECENT ISSUES PER PT H/O tympanomastoidectomy RIGHT 11/12/20 [facility] History of adenoidectomy History of cardiac cath PRIOR TO HEART SURGERY, [facility] - NO STENT(S) History of cataract surgery R/L History of colonoscopy History of coronary artery bypass graft 3 VESSELS 1998 History of cystoscopy REMOVAL KIDNEY STONE History of laminectomy History of nasal septoplasty History of tonsillectomy History of tonsillectomy and adenoidectomy History of tympanomastoidectomy (~12/2020) LEFT Hx of oral surgery (06/05/22) Removal of Infected Necrotic Bone Right Posterior Mandible and Infected Bone Screw and Fractured Teeth(Right) - Smooth Zuniga, DMD Implantation of internal cardiac defibrillator (05/02/12) Port-A-Cath in place (12/22/21) Insertion of Access Port Right Subclavian with Fluoroscopy(Right) - Ivan Peacock DO 12/22/2021 S/P ICD (internal cardiac defibrillator) procedure Placed 2002, generator change 2011 and 2019 Status post chemotherapy Family History Mother Breast cancer Family history of diabetes mellitus Grandmother (Maternal) No problems noted. 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 Required: No Beliefs That Will Affect Care: None marital status: Current Living Situation: Spouse current occupational status: retired current occupation: How many Children do You have: 1 Feels Safe at Home: Yes Childhood Exposure to Second-Hand Smoke: No Diet Comment: "go low" Dental Care, Regularly: Yes Physical Activity Frequency: 1-2 Times per Week Seatbelt Use: always Sunscreen Use: No Assistive Devices: Walker Review of Systems Review of Systems: ROS: Gen: + progressive/general weakness, No fevers, No weight loss Eyes: No eye redness, or pain, no recent vision changes Resp: No SOB, no cough Cardio: Hx of A-fib, denies palpitations/irregular beats, no chest pain GI: Mild diffuse abd discomfort, No nausea/vomiting : Denies pain on urination Skin: No jaundice, itching or new rashes Physical Exam Constitutional: + ill appearing (chronically) and average body habitus; no acute distress Eyes: PERRL, conjunctivae normal, anicteric sclerae ENMT: external ear and nose normal, oropharynx normal Neck: trachea midline, no thyromegaly Respiratory: normal respiratory effort, lungs clear to auscultation Cardiovascular: RRR, no murmur, no edema Gastrointestinal (Abdomen): Inspection/Auscultation: + abdomen distended (moderate ascites) and normal bowel sounds; no abdominal edema Percussion/Palpation: abdomen soft; abdomen nontender Skin: no rashes, warm and dry (no jaundice) Neurologic: PERRL, EOMI, accommodation nl, no face palsy, no dysarthria Psychiatric: Orientation: oriented x 3 Speech: normal rate/rhythm/volume of speech Affect: + flat affect Mood: no irritable mood Lymphatic: no cervical or axillary lymphadenopathy [facility]) Vital Signs (Past 12 Hours) Vital Signs Temp Pulse Pulse Resp BP Pulse Ox O2 Del Method 06/26/22 07:17 36.8 C 102 H 14 92/62 L 95 Room Air 06/25/22 23:00 93 H 06/26/22 04:00 36.3 C L 89 22 84/60 L 96 Nasal Cannula 06/25/22 23:39 35.8 C L 96 H 18 99/61 L 98 Room Air Laboratory Results WBC 3.7, Hb 10.9, Hct 32.3, Plts 84, PT 11.8, INR 1.1, Na 135, K 3.8, Cl 106, CO2 21, Bn 23, Cr 1.47, glucose 143. Diagnostic Findings Non contrast CT 06/19/22: cirrhosis w ascites Doppler US 06/21/22: patent portal and hepatic veins US 10.9 cirrhosis w moderate ascites
--- NOTE | 2022-06-26 10:09 | Nephrology Progress Note ---
Date of Service June 26, 2022 Assessment & Plan (1) Chronic renal failure, stage 3b: (2) Hyponatremia: (3) Cirrhosis: (4) Anemia: (5) Ascites: (6) Severe protein-calorie malnutrition: Plan 81-year-old gentlemen with stage IIIB CKD, cirrhosis, ascites, prior history of testicular cancer, ischemic cardiomyopathy admitted to the hospital with 1 week history of abdominal pain, worsening abdominal ascites. Abdominal pain and discomfort for improved after paracentesis. Renal function staying close to baseline of around 1.8-2. Noted to have acute hyponatremia on lab this morning with serum sodium 127, prior sodium close to 134 to 135. has been relatively hypotensive over last 2 days and history of ventricular tachycardia converted by ICD. Hyponatremia noted yesterday was most likely lab error, repeat was 135, renal function stable. -- waiting on ablation this afternoon -- eventually will need to resume spironolactone 25 mg daily and Lasix 20 mg daily as ascites seems to be slowly increasing again -- liberalize salt in diet, encourage increase protein intake -- consider decreasing Carvedilol as blood pressure remains low Will sign off, OK to f/u outpt as currently scheduled. Thanks! Admission and Anticipated Discharge Date Admission Date: June 19, 2022 Cr Jimenez was seen and evaluated this morning, was at bedside. Denies any specific symptoms but ascites seems to be reaccumulating, denies pain or SOB. BP remains low but asymptomatic. Decent UO. renal function, electrolyte acceptable. Review of Systems Review of Systems: DEtail ROS was otherwise unremarkable. Physical Exam Constitutional: WD/WN, vitals as above + ill appearing and + cachectic Eyes: + anicteric sclerae Respiratory: normal respiratory effort, lungs clear to auscultation Cardiovascular: Rate/Rhythm: + tachycardic Extremities: no edema Gastrointestinal (Abdomen): Percussion/Palpation: abdomen soft; abdomen nontender ascites Skin: no rashes Neurologic: no focal motor deficits Psychiatric: Orientation: alert and oriented x 3 Affect: euthymic affect Results & Data ([facility]) Vital Signs (Past 12 Hours) Vital Signs Temp Pulse Pulse Resp BP Pulse Ox O2 Del Method 06/26/22 07:17 36.8 C 102 H 14 92/62 L 95 Room Air 06/25/22 23:00 93 H 06/26/22 04:00 36.3 C L 89 22 84/60 L 96 Nasal Cannula 06/25/22 23:39 35.8 C L 96 H 18 99/61 L 98 Room Air PG Care Time/CCT Total # of Minutes Spent Total Time Spent with Patient: Total time spent is greater than 50% in coordination of care (as documented) at patient's floor/unit and/or counseling patient: Coding Level of Care Code 90663 Subseq Hosp Care Lvl 2 Diagnoses Chronic renal failure, stage 3b N18.32 Hyponatremia E87.1 Cirrhosis K74.60 Anemia D64.9 Anemia type: unspecified type Ascites R18.8 Severe protein-calorie malnutrition E43 (1) Anemia Anemia type: unspecified type Qualified Code(s): D64.9 - Anemia, unspecified
--- NOTE | 2022-06-26 11:41 | Gastrointestinal Consultation ---
Date of Consultation June 26, 2022 Assessment & Plan (1) Cirrhosis: Likely cardiogenic in origin, but given comorbidities there's likely a NELSON component. At present, I agree with [facility] that patient's diuretics should be increased and would defer diuretic management to cardiology and nephrology in light of his ongoing cardiac and renal issues. This should improve the moderate ascites noted on US on 06/25/22. Of note, his diuretics are currently on hold. If unable to start, then could consider a repeat paracentesis, however patient is not tense/rigid/uncomfortable at present. He is scheduled for an ablation this afternoon with Dr. Mcnair. From a GI standpoint, further cirrhosis work-up/man agement should occur as an outpatient in terms of ruling out other causes, HCC surveillance, & variceal surveillance. Supervising Physician Co-Signing Physician Notes Agree with ROBERT Davila as above Abd: Soft, NT, ND, + Fluid wave, No appreciable HSM Continue current therapy and supportive care Will need diuretic therapy, but will defer to Cardiology and Nephrology regarding timing. Will follow clinical course and make further recommendations as needed. History of Present Illness Reason for Consultation: Ascites Attending Physician: Jam Kohler MD History of Present Illness Patient is an 81 yr old male with PMH of A fib, ischemic cardiomyopathy with ICD, DM2, CK3, bladder stones, CAD, chronic prostatitis, hearing loss, and testicular cancer s/p chemotherapy. Patient He was recently admitted to [facility] recently for ascites. He apparently underwent a paracentesis on 06/19/22 with a total protein of 3, Albumin 1.5 and 71 WBCs. His serum albumin at the time was 2.9 calculating to a SAAG of 1.4. Suspected etiology cardiac vs combo of NELSON cirrhosis. CMP and PT/INR is not suggestive of acute liver failure. GI had been consulted for ascites this morning. He was seen by Shalom HUFF of [facility] prior to determining that he should be seen by [facility] service. Recommendations were made to defer titration of diuretics to cardiology, with a minimum recommended of Lasix 20 mg and Aldactone 50 mg daily. No pertinent family history. CT imaging shows cirrhotic liver morphology on admission. US from 06/25/22 shows moderate ascites. Allergies Allergy/AdvReac Type Severity Reaction Status Date / Time No Known Drug Allergies Allergy nkda Verified 06/15/22 17:02 Home Medications Medication Instructions Recorded Confirmed Type cyanocobalamin (vitamin B-12) 5,000 mcg PO QPM 11/13/18 06/08/22 History 5,000 mcg capsule multivitamin 1 tab PO QPM 03/04/19 06/08/22 History aspirin 81 mg tablet,delayed 81 mg PO QAM 07/05/20 06/08/22 History release lutein 25 mg-zeaxanthin 5 mg 1 cap PO HS 11/05/20 06/08/22 History capsule krill oil 500 mg capsule 500 mg PO QPM 07/18/21 06/08/22 History carvedilol 12.5 mg tablet 12.5 mg PO BID #180 tabs 08/29/21 06/08/22 Rx amiodarone 200 mg tablet 200 mg PO BID #180 tabs 11/04/21 06/08/22 Rx pen needle,diabetic dual safty 30 #100 ea 11/07/21 06/08/22 Rx gauge x 3/16" (BD AutoShield Duo Pen Needle) tamsulosin 0.4 mg capsule 0.4 mg PO HS #30 caps 11/08/21 06/08/22 Rx ondansetron 4 mg disintegrating 4 mg PO Q8H PRN nausea and 11/11/21 06/08/22 Rx tablet vomiting #30 tabs prochlorperazine maleate 10 mg 10 mg PO Q6H PRN Nausea 12/16/21 06/08/22 History tablet liraglutide 0.6 mg/0.1 mL (18 mg/3 See Rx Instructions .Route 04/18/22 06/08/22 Rx mL) subcutaneous pen injector .COMPLEX #18 mL (Victoza 2-Ronen) acetaminophen 500 mg tablet 1,000 mg PO Q6H PRN Pain 04/19/22 06/08/22 History (Tylenol Extra Strength) BiPap Machine #1 ea 05/23/22 06/08/22 Rx Marijuana-Medical Card 1 inh inhalation UD PRN Nausea 05/29/22 06/08/22 History chlorhexidine gluconate 0.12 % 15 ml buccal HS 05/29/22 06/08/22 History mouthwash (Paroex Oral Rinse) furosemide 20 mg tablet (Lasix) 20 mg PO QAM 05/29/22 06/08/22 History hydrocodone 5 mg-acetaminophen 325 1 tab PO Q4H PRN pain #20 tabs 06/05/22 06/08/22 Rx mg tablet ondansetron HCl 8 mg tablet 8 mg PO Q8H PRN nausea and 06/05/22 06/08/22 Rx vomiting #14 tabs mirtazapine 15 mg tablet 15 mg PO DAILY #30 tabs 06/15/22 06/15/22 Rx silver sulfadiazine 1 % topical 1 applic topical ONCE #50 grams 06/15/22 06/15/22 Rx cream (Silvadene) albuterol sulfate 90 mcg/actuation 2 inh inhalation Q6H PRN shortness 06/23/22 Rx aerosol inhaler of breath or wheezing #6.7 grams amoxicillin 875 mg-potassium 1 tab PO Q12H #7 tabs 06/23/22 Rx clavulanate 125 mg tablet azithromycin 250 mg tablet 250 mg PO DAILY #2 tabs 06/23/22 Rx spironolactone 25 mg tablet 25 mg PO DAILY #30 tabs 06/23/22 Rx Patient History Medical History Abdominal pain Atrial flutter Presented to the emergency room on August 16, 2020 after syncopal episode; arrhythmia identified on arrival- based on his ICD evaluation, converted with an ICD shock and "seems to have remained in sinus rhythm. His current interrogation demonstrates no further atrial flutter since that shock." No sycnope since that time (Per cardio note 07/18/21) Benign prostatic hyperplasia CAD (coronary artery disease) H/O [place] 1988, S/P CABG 3 vessel 1998 Chronic kidney disease, stage 4 (severe) Chronic kidney disease, stage III (moderate) Dehydration Depression HX Diabetes mellitus, type 2 Germ cell cancer Reason for port placement -CHEMO COMPLETED 04/17/2022 H/O acute myocardial infarction 1988 History of bladder stone History of cancer chemotherapy History of kidney stones History of subarachnoid hemorrhage History of ventricular fibrillation s/p ICD COMANCHE (hard of hearing) Hyperlipidemia Hyponatremia ICD (implantable cardioverter-defibrillator) in place INITIALLY IMPLANTED 2002 ; GENERATOR CHANGE 2011 AND DECEMBER 02, 2019- [employer] Ischemic cardiomyopathy (Unknown) S/p ICD implantation EF 40% per most recent echo 08/2020 Retroperitoneal lymphadenopathy SNHL (sensorineural hearing loss) Testicular cancer with mets to the lymph nodes. Needle biopsy at [facility] dx 11/2021. Surgical History Difficult airway for intubation PT REPORTS WAS TOLD PT WAS DIFFICULT INTUBATION - UNKNOWN FURTHER DETAILS - ? SURGERY WAS TOLD THIS- POSSIBLY BYPASS SURGERY PER -PER PT 30+ YRS AGO?-NO RECENT ISSUES PER PT H/O tympanomastoidectomy RIGHT 11/12/20 [facility] History of adenoidectomy History of cardiac cath PRIOR TO HEART SURGERY, [facility] - NO STENT(S) History of cataract surgery R/L History of colonoscopy History of coronary artery bypass graft 3 VESSELS 1998 History of cystoscopy REMOVAL KIDNEY STONE History of laminectomy History of nasal septoplasty History of tonsillectomy History of tonsillectomy and adenoidectomy History of tympanomastoidectomy (~12/2020) LEFT Hx of oral surgery (06/05/22) Removal of Infected Necrotic Bone Right Posterior Mandible and Infected Bone Screw and Fractured Teeth(Right) - Smooth Zuniga, DMD Implantation of internal cardiac defibrillator (05/02/12) Port-A-Cath in place (12/22/21) Insertion of Access Port Right Subclavian with Fluoroscopy(Right) - Ivan Peacock, 12/22/2021 S/P ICD (internal cardiac defibrillator) procedure Placed 2002, generator change 2011 and 2019 Status post chemotherapy Family History Mother Breast cancer Family history of diabetes mellitus Grandmother (Maternal) No problems noted. Grandmother (Paternal) Myocardial infarction Breast cancer Father Myocardial infarction Brother Brain cancer Sister Cancer Denies family history of Ovarian cancer Prostate cancer Colorectal cancer Social History Smoking Status: Former smoker Tobacco Type: Cigarettes packs per day: 2; Years Smoked: 31; Cigarettes Per Day: 2.5; Second Hand Exposure: No; Hx Alcohol Use: Yes Hx Substance Use: No Preferred Language: Ugandan Communication Ability: Effective Visual Impairment: No Limitations Hearing Ability: Normal Beverage Specialist Required: No Beliefs That Will Affect Care: None marital status: Current Living Situation: Spouse current occupational status: retired current occupation: How many Children do You have: 1 Feels Safe at Home: Yes Childhood Exposure to Second-Hand Smoke: No Diet Comment: "go low" Dental Care, Regularly: Yes Physical Activity Frequency: 1-2 Times per Week Seatbelt Use: always Sunscreen Use: No Assistive Devices: Walker Review of Systems Constitutional: no fever and no chills Respiratory: no cough and no dyspnea Cardiovascular: no chest pain Gastrointestinal: + problem reported (ascites) Physical Exam Constitutional: well developed Respiratory: normal respiratory effort Cardiovascular: Rate/Rhythm: regular rate Gastrointestinal (Abdomen): Percussion/Palpation: + ascites Musculoskeletal: Head/Neck/Chest: normocephalic Psychiatric: Orientation: alert and oriented x 3 Results & Data ([facility]) Vital Signs (Past 12 Hours) Vital Signs Temp Pulse Resp BP Pulse Ox O2 Del Method 06/26/22 07:17 36.8 C 102 H 14 92/62 L 95 Room Air 06/26/22 04:00 36.3 C L 89 22 84/60 L 96 Nasal Cannula 06/25/22 23:39 35.8 C L 96 H 18 99/61 L 98 Room Air PG Care Time/CCT Total # of Minutes Spent Total Time Spent with Patient: Total time spent is greater than 50% in coordination of care (as documented) at patient's floor/unit and/or counseling patient: Coding Level of Care Code 74007 Initial Inpt Care Lvl 3 Diagnoses Cirrhosis K74.60
[2022-06-26] MEDS ORDERED: LIDOCAINE 1% LOCAL 20 ML VIAL ONE (14:42)
[2022-06-26] MEDS ORDERED: fentaNYL citrate 100 MCG/2 ML VIAL ONE (14:49)
[2022-06-26] MEDS ORDERED: MIDAZOLAM HCL 1 MG/ML 2ML VIAL ONE (14:49)
--- NOTE | 2022-06-26 15:27 | Pre Anesthesia Assessment ---
Date of Service June 26, 2022 Pre Sedation Assessment Vital Signs Temp Pulse Pulse Resp BP Pulse Ox O2 Del Method 06/26/22 14:30 105 H 14 93/67 L 99 Room Air 06/26/22 11:21 36.3 C L 85 18 97/66 L 100 Room Air 06/26/22 07:17 36.8 C 102 H 14 92/62 L 95 Room Air 06/25/22 23:00 93 H 06/26/22 04:00 36.3 C L 89 22 84/60 L 96 Nasal Cannula 06/25/22 21:00 Room Air 06/25/22 23:39 35.8 C L 96 H 18 99/61 L 98 Room Air 06/25/22 20:59 92/65 L 06/25/22 18:44 36.5 C 105 H 18 104/66 96 Room Air 06/25/22 15:31 36.4 C L 70 17 90/56 L 99 Room Air Cardiovascular + tachycardic and + irregularly irregular Respiratory normal respiratory effort, lungs clear to auscultation Pre-Sedation Airway Assessment Smoking Status: Former smoker Hx Sleep Apnea: Yes Short, Thick Neck: No Thyromental Distance: > or= 3.5 Finger Breadths Oral Cavity: + Dental Abnormalities Mallampati Class: II ASA: ASA3 NPO Status Date of Last Intake of Fluids: 06/26/22 Time of Last Intake of Fluids: 07:30 Date of Last Intake of Solid Food: 06/26/22 Time of Last Intake of Solid Foods: 07:30 Procedure Planning Contraindications for Sedation: none Current Medications Reviewed: Yes Notes The planned sedation has been discussed with the patient. Informed Consent was obtained. I have identified the patient, determined the appropriateness of sedation and have assessed the patient immediately prior to the procedure. All medicine(s) and interventions are by my order.
--- NOTE | 2022-06-26 15:55 | Electrophysiology Report ---
Date of Service June 26, 2022 Electrophysiology Procedure Electrophysiology Procedure Report Preprocedure diagnosis: Atrial flutter with rapid ventricular response Post procedure diagnosis: Same Procedure: AV rosa ablation Surgeon: Rojelio Mcnair MD Catheter: 8 mm steerable RF ablation Findings: The patient arrived in the laboratory with an atrial tachycardia versus atrial flutter at a cycle length of 400 ms. RF ablation was performed by positioning a steerable catheter at the AV junction, not documented his rhythm, recording a hiss potential and performing ablation just proximal to the His bundle recording location. AV block occurred during the early part of the first ablation, a total of two 60-minute RF applications were used. Following RF ablation the ICD was programmed to VVIR mode with a base rate of 80 bpm. Procedure: After obtaining informed consent for the procedure and sedation the patient was brought to the laboratory. He was identified in the laboratory, prepped and draped in standard sterile manner for an ablation procedure. The ICD was programmed to VVI 40 mode for the ablation. The right groin was anesthetized with lidocaine local anesthetic and an SR 0 ablation guide was advanced under fluoroscopic guidance to position in the right atrium. An 8 Tamazight steerable ablation catheter was advanced through the sheath to position at the AV junction. The AV junction was mapped for electrical activity as well as for His bundle potential. Once His bundle location was identified ablation was performed just proximal to that location. Two 60-minute temperature controlled RF applications were used, AV block ensued very quickly after initial RF application. Following ablation the ICD was reprogrammed to VVIR with a base rate of 80 beats per minutes. The patient remained in the laboratory for 30 minutes at which time complete heart block was confirmed. At the conclusion of the procedure the catheter was withdrawn under fluoroscopic guidance and the sheath was withdrawn and hemostasis obtained by firm pressure at the puncture site. The patient tolerated procedure well, there were no complications and the patient will be returned to telemetry. [facility] [place] Indication for Procedure (1) Atrial flutter: EP Procedure 1: Electrophysiology: 23643 Bundle of His recording Procedure 2: Electrophysiology: 13091 Intra-atrial recording Procedure 3: Electrophysiology: 10556 Ablation AV Node w/wo pace ICD Procedure 1: ICD: 72987 ICD single program PG Moderate Sedation Codes Moderate Sedation Codes Procedure 1: Sedation/Anesthesia: 89620 Mod Sedation by the same physician;Init15 Min Child Age 5 & Up Procedure 2: Sedation/Anesthesia: 58295 Mod Sedation by the same physician; Ea [id number] Minutes
--- NOTE | 2022-06-26 17:02 | Post Anesthesia Assessment ---
Date of Service June 26, 2022 Post Sedation Assessment Vital Signs Temp Pulse Pulse Resp BP Pulse Ox O2 Del Method 06/26/22 16:47 36.4 C L 80 20 106/78 100 Room Air 06/26/22 16:32 36.5 C 80 20 105/63 99 Room Air 06/26/22 16:17 36.4 C L 80 20 104/68 98 Room Air 06/26/22 14:30 105 H 14 93/67 L 99 Room Air 06/26/22 11:21 36.3 C L 85 18 97/66 L 100 Room Air 06/26/22 07:17 36.8 C 102 H 14 92/62 L 95 Room Air 06/25/22 23:00 93 H 06/26/22 04:00 36.3 C L 89 22 84/60 L 96 Nasal Cannula 06/25/22 21:00 Room Air 06/25/22 23:39 35.8 C L 96 H 18 99/61 L 98 Room Air 06/25/22 20:59 92/65 L 06/25/22 18:44 36.5 C 105 H 18 104/66 96 Room Air Discharge Sedation Level of Care: Fast Track Phase II Post Sedation Plan On clinical assessment, the patient appears to have tolerated the sedation without complications. Patient is recovering as anticipated. Patient will continue to be monitored by nursing and may be discharged when sedation discharge criteria are met per below protocol. Upon Completions of procedure up to 15 minutes continue every 5 minute vital si gns and the P.A.R. score; then discharge to a Phase I or Fast Track to Phase II per the following guidelines: * Discharge Patient to appropriate Phase II area if PAR is 8 or greater or return to pre- procedure baseline. The post - procedure orders will be as directed. * If PAR score is less than 8 or not return to pre-procedure baseline then patient will follow Phase I monitoring till PAR is reached for Phase II. The Phase I may be done in procedure room or may call to secure a Phase I area. * If naloxone or flumazenil are used for reversal, hold in Phase I for continued monitoring from when last reversal dose was given for a minimum of 60 minutes or longer pending the nurse and/or physician discretion of patient condition before discharge to Phase II. Please call the Sedation Physician to re-evaluate and complete post-note for discharge to Phase II area. Do NOT discharge from procedure sedation or Phase 1 until post- sedation evaluation note is complete by procedure /sedation MD Sedation Discharge Instructions to be given to the patient at discharge to home.
[2022-06-26] MEDS: MIRTAZAPINE TAB 15 MG TAB PO SCH (20:37)
[2022-06-26] MEDS: TAMSULOSIN HCL 0.4 MG CAP PO SCH (20:37)
[2022-06-27 05:50] LABS: Hematocrit (blood only) 32.6 % (40.1-51.0); Hemoglobin 11.1 g/dl (14.0-18.0); White Blood Count 4.06 K/ul (4.8-10.8)
[2022-06-27 06:09] LABS: BUN Creatinine Ratio 15.8 (10-20); Calcium 7.8 mg/dl (8.5-10.1); Creatinine Clr Calc Pharmacy 42.8 ml/min; Est GFR (African American) 51.9 ml/min; Est GFR (Non-African American) 44.8 ml/min
[2022-06-27 06:34] LABS: Mean Corpuscular Hemoglobin 32.6 pg (25.0-34.0); Mean Corpuscular Volume 95.9 fL (80.0-100.0); Mean Platelet Volume 13.6 fL (9.4-12.4); Platelet Count 88 K/uL (130-400); Platelet Estimate Decreased (Normal); RDW Coefficient of Variation 16.8 % (11.5-14.5); RDW Standard Deviation 58.5 fL (36.4-46.3)
[2022-06-27] MEDS: carvediloL 12.5 MG TAB PO SCH ×2 (08:44→20:14)
[2022-06-27] MEDS: ASPIRIN 81 MG ECTAB PO SCH (08:44)
[2022-06-27] MEDS: AMIODARONE 200 MG TAB PO SCH ×2 (08:45→17:08)
[2022-06-27] MEDS: INSULIN ASPART PER UNIT SC SCH ×4 (08:47→20:14)
--- NOTE | 2022-06-27 09:24 | Cardiology Progress Note ---
Date of Service June 27, 2022 Assessment & Plan (1) Presence of single chamber implantable cardioverter-defibrillator (ICD): (2) Atrial flutter: (3) Cardiomyopathy: Plan 1. Single-chamber ICD: His ICD had been working properly to convert his ventricular tachycardia, however it was detecting his atrial arrhythmia as a ventricular arrhythmia and I had not been able to program around that. Since his VT rate is about the same as his flutter rate when it goes fast I couldn't change rates without potentially missing his VT. Now following ablation he is pacing all the time in the ventricle as expected. He has had no further VT. I discontinued his intravenous amiodarone and if his amiodarone level (which is still pending) is high I would decrease his amiodarone from 400 mg daily to 200 mg daily. I believe his atrial flutter and antitachycardia pacing was inducing ventricular tachycardia and hopefully he will not have much of it going forward with rate control. 2. Atrial flutter and atrial fibrillation: I believe his rapid heart rates requiring cardioversion started out as atrial flutter and degenerate to VT, now with AV block this should not happen although he may have intrinsic VT. He is now dependent on his pacemaker but this is acceptable. 3. Cardiomyopathy: His last echocardiogram showed moderate left ventricular dysfunction and he does not have evidence of heart failure on OptiVol recordings in his ICD. We have not done an echocardiogram this visit. Although we will now be pacing him in the ventricle consistently following ablation this is preferable. In the future if it is necessary due to development of a pacemaker induced cardiomyopathy we can consider adding a coronary sinus lead and using biventricular pacing. I do not think this is going to be necessary and certainly would not consider it now. Admission and Anticipated Discharge Date Admission Date: June 19, 2022 Subjective He seems to be in good spirits and feeling well today. He is noncommittal as to whether he feels better today than yesterday, but he has not had a sensation of rapid heart rate. He appears more comfortable to me. He is mostly complaining of not sleeping well in the hospital. He has no right groin discomfort. Physical Exam Physical Exam: Constitutional: Alert, cooperative and in no distress. HEENT: Unremarkable Neck: No jugular venous distention, carotid pulses are normal and equal bilaterally without bruits. Pulmonary: Clear to auscultation bilaterally. Cardiac: Regular rhythm with no murmur, gallop or rub. Abdomen: Soft, nontender with normal bowel sounds. Extremities: No edema. Distal pulses intact. Neurologic: No focal findings. Gait was not tested. Skin: No rash, ecchymoses or petechiae. The right groin catheter insertion site looks good with no hematoma, erythema or tenderness. Results & Data ([facility]) Vital Signs (Past 12 Hours) Vital Signs Temp Pulse Pulse Resp BP Pulse Ox O2 Del Method 06/27/22 07:42 36.6 C 80 16 100/63 100 Room Air 06/27/22 00:00 80 06/27/22 03:20 36.3 C L 76 20 90/59 L 97 Room Air 06/27/22 02:46 80 06/26/22 23:40 36.3 C L 80 20 93/60 L 99 Room Air Laboratory Results CBC 06/27/22 Range/Units 05:21 WBC 4.06 L (4.8-10.8) K/ul RBC 3.40 L (4.63-6.08) M/uL Hgb 11.1 L (14.0-18.0) g/dl Hct 32.6 L (40.1-51.0) % Plt Count 88 L (130-400) K/uL Comprehensive Metabolic Panel 06/27/22 Range/Units 05:21 Sodium 134 L (136-145) mmol/L Potassium 4.0 (3.5-5.1) mmol/L Chloride 106 (98-107) mmol/L Carbon Dioxide 21 (21-32) mmol/L BUN 23 (6-23) mg/dl Creatinine 1.46 H (0.6-1.4) mg/dl Glucose 139 H (70-99(Fasting)) mg/dl Calcium 7.8 L (8.5-10.1) mg/dl Intake and Output 06/26/22 06/27/22 06/27/22 22:59 06:59 14:59 Intake Total 150 / 900 50 / 900 Output Total 100 / 100 100 / 100 Balance 150 / 800 -50 / 800 -100 / -100 Intake: Oral 150 / 200 50 / 200 Output: Urine 100 / 100 100 / 100 Other: Weight 77.4 kg 74.9 kg Weight Measurement Method Built [facility] Diagnostic Findings Telemetry: Ventricular paced at 80 bpm since AV rosa ablation yesterday. No ventricular arrhythmias. PG Care Time/CCT Total # of Minutes Spent Total Time Spent with Patient: Total time spent is greater than 50% in coordination of care (as documented) at patient's floor/unit and/or counseling patient: Coding Level of Care Code 91963 Subseq Hosp Care Lvl 3 Diagnoses Presence of single chamber implantable cardioverter-defibrillator (ICD) Z95.810 Atrial flutter I48.3 Atrial flutter type: typical Cardiomyopathy I42.9 (1) Atrial flutter Atrial flutter type: typical Qualified Code(s): I48.3 - Typical atrial flutter
[2022-06-27] MEDS: HEPARIN 100 UNIT/ML 5ML FLUSH FLUSH PRN (09:32)
[2022-06-27] MEDS: FUROSEMIDE 20 MG TAB PO SCH (10:04)
[2022-06-27] MEDS: SPIRONOLACTONE 25 MG TAB PO SCH (10:04)
--- NOTE | 2022-06-27 10:06 | Palliative Care Consultation ---
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 He has trouble with the supplements because he feels they are too thick. I have suggested he poor them over a cup of ice to help dilute/thin it then sip it along with his meals and then in between meals to boost caloric intake. Present on Admission?: Yes (8) Anorexia: Plan I met/spoke with pt at bedside for approx 50 min during which time he shared his extensive cardiac hx, events of this past years, weight loss, 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 and worries about not improving. He admits to feeling depressed. He lives in [place] in a private home with his . He is frustrated by how he is feeling/failure to improve but then states "but I'm not ready to take my final rest yet either. I want to keep on keeping on. I have things I want to do." We discussed the overall chronic progression of his underlying medical illnesses lb his HF which has been the longest medical illness he has had. we spoke about how accurate prognostication is virtually impossible in HF. While this uncertainty is frustrating for providers, it provides a basis for initiating end-of-life discussions. I reviewed with pt the [place] [employer] scientific statement to help us clinicians best guide patients: Initiate yearly heart failure reviews or advance care planning discussions. Utilize a HF hospitalization (which triples one-year mortality) as a bridge to either optimizing medical therapy or palliative care. Educate patients and families about the unpredictable, but usually terminal nature of HF, and the ever present danger of sudden cardiac (even when feeling well). Ascertain specific goals of care (e.g. quality of life vs. length of life, living/dying at home vs. hospital) Assess options for achieving these goals (e.g. initiating/handling device therapies including when and how to deactivate, hospice vs. serial hospital/critical care unit admissions). Assess resuscitation preferences at every hospitalizations and with declines in performance status. A free advance care planning packet for HF patients is available through the Heart Failure Society of [place] website at: http://www.hfsa.org/pdf/module9.pdf Pt then asked me why I was seeing him. We spoke about Palliative medicine, specialized medical care for people living with a serious illness. This type of care is focused on providing relief from the symptoms and stress of the illness., with goals to improve quality of life for both the patient and the family. Further, I clarified that Palliative Care is a medicine subspecialty and specifically, it is not hospice (which is a visiting nurse service.) I shared with him that his advancing medical issues warrant him a candidate for pall med eval and advised him of the Heart failure triggers for palliative care integration include the following 1. Symptomatic in spite of optimal therapy (diuretics, ACEi, b lina, nitrates, digoxin, opioids, biventricular pacemaker) 2. Repeated hospital admissions 3. Intractable hypotension 4. Renal failure 5. Intractable hyponatremia 6. Cardiac cachexia 7. Cognitive impairment 8. Atrial fibrillation 9. Increasing frailty and dependence Of these triggers, pt was items # 1,4,6,8,9. Mr. Carroll believes "I have a lot of life to live yet." He wants every chance to recover including CPR/vent but he very adamantly "does not ever want feeding tubes of any sort." He believes he would survive and benefit from CPR. We discussed that only about 10% of patients who have [id number] sudden cardiac arrest survive to hospital discharge, with many survivors having neurologic impairment. This rate is even lower among patients with serious coexisting conditions: the chance of survival to hospital discharge for in- hospital CPR in older people is low to moderate (15%) and decreases with age, comorbidities, performance status and frailty: for pts > 70 yo, more than half of the patients who initially survived resuscitation in the hospital before hospital discharge. The pooled survival to discharge after in-hospital CPR was 18% for patients between 70 and 79 years old, 15% for patients between 80 and 89 years old and 11% for patients of 90 years and older. (from Gera FORTE, Alexandre MORENO, Tao F, et al. Trends in short- and long-term survival among [id number] cardiac arrest patients alive at hospital arrival. Circulation 2014;130:1883- 1890. AND Kal Martinez, Javier T, Mp R, et al. Performance of clinical risk scores to predict mortality and neurological outcome in cardiac arrest patients. Resuscitation 2019;136:21-29.) No change to code status. He IS willing to go to rehab. He would like a facility close to home so can easily visit. He hopes to get OOB and ambulate with PT today. Mr. Carroll is cognitively intact and decisionally intact. He has some wishful thinking/adhere to conviction that he can will himself to improve vs accepting the realistic implications of medical frailty. So long as medical interventions are offered, he will accept. He feels we would not offer interventions of limited or low yield potential. If we as medical teams feel he is no longer a candidate for therapies to "fix/cure" the problems then he wants to hear that from us clearly. Would suggest that all future discussions about interventions be couched in this perspective per patient request. If he is in an end of life or dying situation, or if things are heading that way, he wants to be told this clearly so that he can make the decision about where t be at that junction. He notes being with family matters the most but he is also as equally earful of dying/facing mortality. Ellie desires all aggressive continued care. He is not a hospice candidate. We were asked to see pt for GOC, which have been clarified as documented above. We will sign off. Thank you for this interesting consult. Blanca Rose DNP Clinical Director, Palliative Medicine History of Present Illness Reason for Consultation: "Goals of care, progressive decline." Requesting Physician: Dalton Jones Attending Physician: Jam Kohler MD History of Present Illness Mr Carroll is an 81yo male admitted with progressive abd pain and sistension, fuond to have ascites. Signif cardiac hx with triple bypass in 1998. reports hvaing an eventful year wih testicular cancer (completed tx Apr 2022), falls/admmission, declining strength, ?jaw abscess s/p surgery, and now this admission. States he has lost over 30 lb since the summer. States he was doing well he thought and tolerating chemo but then once therapy was completed, he started feeling weaker, less energetic, declining apetite and more weight loss. His dental issues created more issues with his nutrition because he has not been able to use his dentures so he has to chew food with front teeth. Allergies Allergy/AdvReac Type Severity Reaction Status Date / Time No Known Drug Allergies Allergy nkda Verified 06/15/22 17:02 Home Medications Medication Instructions Recorded Confirmed Type cyanocobalamin (vitamin B-12) 5,000 mcg PO QPM 11/13/18 06/08/22 History 5,000 mcg capsule multivitamin 1 tab PO QPM 03/04/19 06/08/22 History aspirin 81 mg tablet,delayed 81 mg PO QAM 07/05/20 06/08/22 History release lutein 25 mg-zeaxanthin 5 mg 1 cap PO HS 11/05/20 06/08/22 History capsule krill oil 500 mg capsule 500 mg PO QPM 07/18/21 06/08/22 History carvedilol 12.5 mg tablet 12.5 mg PO BID #180 tabs 08/29/21 06/08/22 Rx amiodarone 200 mg tablet 200 mg PO BID #180 tabs 11/04/21 06/08/22 Rx pen needle,diabetic dual safty 30 #100 ea 11/07/21 06/08/22 Rx gauge x 3/16" (BD AutoShield Duo Pen Needle) tamsulosin 0.4 mg capsule 0.4 mg PO HS #30 caps 11/08/21 06/08/22 Rx ondansetron 4 mg disintegrating 4 mg PO Q8H PRN nausea and 11/11/21 06/08/22 Rx tablet vomiting #30 tabs prochlorperazine maleate 10 mg 10 mg PO Q6H PRN Nausea 12/16/21 06/08/22 History tablet liraglutide 0.6 mg/0.1 mL (18 mg/3 See Rx Instructions .Route 04/18/22 06/08/22 Rx mL) subcutaneous pen injector .COMPLEX #18 mL (Victoza 2-Ronen) acetaminophen 500 mg tablet 1,000 mg PO Q6H PRN Pain 04/19/22 06/08/22 History (Tylenol Extra Strength) BiPap Machine #1 ea 05/23/22 06/08/22 Rx Marijuana-Medical Card 1 inh inhalation UD PRN Nausea 05/29/22 06/08/22 History chlorhexidine gluconate 0.12 % 15 ml buccal HS 05/29/22 06/08/22 History mouthwash (Paroex Oral Rinse) furosemide 20 mg tablet (Lasix) 20 mg PO QAM 05/29/22 06/08/22 History hydrocodone 5 mg-acetaminophen 325 1 tab PO Q4H PRN pain #20 tabs 06/05/22 06/08/22 Rx mg tablet ondansetron HCl 8 mg tablet 8 mg PO Q8H PRN nausea and 06/05/22 06/08/22 Rx vomiting #14 tabs mirtazapine 15 mg tablet 15 mg PO DAILY #30 tabs 06/15/22 06/15/22 Rx silver sulfadiazine 1 % topical 1 applic topical ONCE #50 grams 06/15/22 06/15/22 Rx cream (Silvadene) albuterol sulfate 90 mcg/actuation 2 inh inhalation Q6H PRN shortness 06/23/22 Rx aerosol inhaler of breath or wheezing #6.7 grams amoxicillin 875 mg-potassium 1 tab PO Q12H #7 tabs 06/23/22 Rx clavulanate 125 mg tablet azithromycin 250 mg tablet 250 mg PO DAILY #2 tabs 06/23/22 Rx spironolactone 25 mg tablet 25 mg PO DAILY #30 tabs 06/23/22 Rx Patient History Medical History Abdominal pain Atrial flutter Presented to the emergency room on August 16, 2020 after syncopal episode; arrhythmia identified on arrival- based on his ICD evaluation, converted with an ICD shock and "seems to have remained in sinus rhythm. His current interrogation demonstrates no further atrial flutter since that shock." No sycnope since that time (Per cardio note 07/18/21) Benign prostatic hyperplasia CAD (coronary artery disease) H/O PR 1988, S/P CABG 3 vessel 1998 Chronic kidney disease, stage 4 (severe) Chronic kidney disease, stage III (moderate) Dehydration Depression HX Diabetes mellitus, type 2 Germ cell cancer Reason for port placement -CHEMO COMPLETED 04/17/2022 H/O acute myocardial infarction 1988 History of bladder stone History of cancer chemotherapy History of kidney stones History of subarachnoid hemorrhage History of ventricular fibrillation s/p ICD EYAK (hard of hearing) Hyperlipidemia Hyponatremia ICD (implantable cardioverter-defibrillator) in place INITIALLY IMPLANTED 2002 ; GENERATOR CHANGE 2011 AND DECEMBER 02, 2019- [employer] Ischemic cardiomyopathy (Unknown) S/p ICD implantation EF 40% per most recent echo 08/2020 Retroperitoneal lymphadenopathy SNHL (sensorineural hearing loss) Testicular cancer with mets to the lymph nodes. Needle biopsy at [facility] dx 11/2021. Surgical History Difficult airway for intubation PT REPORTS WAS TOLD PT WAS DIFFICULT INTUBATION - UNKNOWN FURTHER DETAILS - ? SURGERY WAS TOLD THIS- POSSIBLY BYPASS SURGERY PER -PER PT 30+ YRS AGO?-NO RECENT ISSUES PER PT H/O tympanomastoidectomy RIGHT 11/12/20 [facility] History of adenoidectomy History of cardiac cath PRIOR TO HEART SURGERY, [facility] - NO STENT(S) History of cataract surgery R/L History of colonoscopy History of coronary artery bypass graft 3 VESSELS 1998 History of cystoscopy REMOVAL KIDNEY STONE History of laminectomy History of nasal septoplasty History of tonsillectomy History of tonsillectomy and adenoidectomy History of tympanomastoidectomy (~12/2020) LEFT Hx of oral surgery (06/05/22) Removal of Infected Necrotic Bone Right Posterior Mandible and Infected Bone Screw and Fractured Teeth(Right) - Smooth Zuniga, DMD Implantation of internal cardiac defibrillator (05/02/12) Port-A-Cath in place (12/22/21) Insertion of Access Port Right Subclavian with Fluoroscopy(Right) - Ivan Peacock, 12/22/2021 S/P ICD (internal cardiac defibrillator) procedure Placed 2002, generator change 2011 and 2019 Status post chemotherapy Family History Mother Breast cancer Family history of diabetes mellitus Grandmother (Maternal) No problems noted. Grandmother (Paternal) Myocardial infarction Breast cancer Father Myocardial infarction Brother Brain cancer Sister Cancer Denies family history of Ovarian cancer Prostate cancer Colorectal cancer Social History Smoking Status: Former smoker Tobacco Type: Cigarettes packs per day: 2; Years Smoked: 31; Cigarettes Per Day: 2.5; Second Hand Exposure: No; Hx Alcohol Use: Yes Hx Substance Use: No Preferred Language: [place] Citizen Communication Ability: Effective Visual Impairment: No Limitations Hearing Ability: Normal Internal Security Manager Required: No Beliefs That Will Affect Care: None marital status: Current Living Situation: Spouse current occupational status: retired current occupation: How many Children do You have: 1 Feels Safe at Home: Yes Childhood Exposure to Second-Hand Smoke: No Diet Comment: "go low" Dental Care, Regularly: Yes Physical Activity Frequency: 1-2 Times per Week Seatbelt Use: always Sunscreen Use: No Assistive Devices: Walker Review of Systems Review of Systems: weight loss, 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, poor intake, dentition issues Constitutional: + fatigue, + weakness, + anorexia, + weight loss and + insomnia Eyes: + corrective lenses and + decreased night vision Ear, Nose, Mouth, Throat: + nasal congestion, + dental pain, + dental abscess, + loose teeth and + change in voice Respiratory: + dyspnea Cardiovascular: + dyspnea, + orthopnea, + palpitations, + lightheadedness and + syncope Gastrointestinal: + abdominal pain and + bloating (distension, +ascites) Musculoskeletal: + stiffness, + limited range of motion, + muscle weakness and + muscle atrophy Integumentary: as per Subjective / HPI (easy bruising) Neurologic: + gait abnormality, + unsteadiness, + generalized weakness and + headache(s) Psychiatric: + depression and + abnormal sleep pattern Endocrine: as per Subjective / HPI (no new complaints) Physical Exam Physical Exam: bitemporal wasting Constitutional: + thin, + frail appearing and + underweight Eyes: PERRL and EOM intact bilaterally ENMT: Nose: + facial tenderness (right jaw line) mucus membranes slightly dry, dentition fait, some advanced dental disease noted. Neck: normal visual inspection and trachea midline Thyroid: normal thyroid Respiratory: anterior chest wall non tender. breath sounds diminished Cardiovascular: irreg irreg Gastrointestinal (Abdomen): firm, distended, +fluid shift Skin: scatt ecchymoses, thin/frail skin -stretched thin over bony prominences Neurologic: AAOx3, following commands, generlized weakness Psychiatric: Orientation: oriented x 3 and cooperative Eye Contact: good eye contact Mood: + depressed mood Thought Process: + tangential thought process and + perseveration Thought Content: + loneliness Cognition: recent memory grossly intact, remote memory grossly intact, attention grossly intact and language grossly intact Insight: good insight Judgement: good judgement Results & Data ([facility]) Vital Signs (Past 12 Hours) Vital Signs Temp Pulse Pulse Resp BP Pulse Ox O2 Del Method 06/27/22 07:42 36.6 C 80 16 100/63 100 Room Air 06/27/22 00:00 80 06/27/22 03:20 36.3 C L 76 20 90/59 L 97 Room Air 06/27/22 02:46 80 06/26/22 23:40 36.3 C L 80 20 93/60 L 99 Room Air PG Care Time/CCT Total # of Minutes Spent Total Time Spent with Patient: Total time spent is greater than 50% in coordination of care (as documented) at patient's floor/unit and/or counseling patient: [place] [address] Inpt Consult Level 5 Patient Type New Medical Decision Making Moderate Complexity Diagnoses Palliative care encounter Z51.5 Advanced care planning/counseling discussion Z71.89 Ascites R18.8 Ventricular tachyarrhythmia I47.20 Germ cell cancer C80.1 Chronic renal failure, stage 3b N18.32 Severe protein-calorie malnutrition E43 Anorexia R63.0 Time Spent (min) 75 Comment total time 75 min, greater than half in face to face discussions.
--- NOTE | 2022-06-27 10:35 | Gastroenterology Progress Note ---
Date of Service June 27, 2022 Assessment & Plan (1) Cirrhosis: (2) Ascites: Plan -Resume diuretics when able; will defer timing to primary team/cardiology/nephrology as he has other non-GI related issues ongoing. -If ascites worsens/patient cannot begin diuretics today, could consider a repeat therapeutic paracentesis, however would not favor this as the primary method of ascites management moving forward as this increases his risk for infection. -Re-consult GI with acute changes. Further cirrhosis management as outpatient. Admission and Anticipated Discharge Date Admission Date: June 19, 2022 Supervising Physician Co-Signing Physician Notes Agree with ROBERT Davila as above Abd: Soft, NT, Distended, +Fluid wave, +BS Continue current therapy and supportive care Will defer to Nephrology and Cardiology as to when we can resume Aldactone/Furosemide therapy Will follow clinical course and make further recommendations as needed. Subjective Patient is an 81 yo male with multiple ongoing medical issues. GI is following for ascites/cirrhosis. Still not on diuretics at present. Moderate ascites noted on CT imaging. Patient denies pain or discomfort--endorses a fullness. Last paracentesis on 06/19/22. No acute GI concerns today. Review of Systems Constitutional: no fever and no chills Respiratory: no cough and no dyspnea Cardiovascular: no chest pain Gastrointestinal: + bloating (fullness) Physical Exam Constitutional: well developed Respiratory: normal respiratory effort Cardiovascular: Rate/Rhythm: regular rate Gastrointestinal (Abdomen): Inspection/Auscultation: abdomen normal to inspection Musculoskeletal: Head/Neck/Chest: normocephalic Psychiatric: Orientation: alert and oriented x 3 Results & Data Results & Data ([facility]) Vital Signs (Past 12 Hours) Vital Signs Temp Pulse Pulse Resp BP Pulse Ox O2 Del Method 06/27/22 07:42 36.6 C 80 16 100/63 100 Room Air 06/27/22 00:00 80 06/27/22 03:20 36.3 C L 76 20 90/59 L 97 Room Air 06/27/22 02:46 80 06/26/22 23:40 36.3 C L 80 20 93/60 L 99 Room Air PG Care Time/CCT Total # of Minutes Spent Total Time Spent with Patient: Total time spent is greater than 50% in coordination of care (as documented) at patient's floor/unit and/or counseling patient: Coding Level of Care Code 65803 Subseq Hosp Care Lvl 3 Diagnoses Cirrhosis K74.60 Ascites R18.8
--- NOTE | 2022-06-27 14:32 | Electrocardiogram Report ---
Test Reason : Blood Pressure : / mmHG Vent. Rate : 080 BPM Atrial Rate : 086 BPM P-R Int : 000 ms QRS Dur : 166 ms QT Int : 530 ms P-R-T Axes : 000 -78 104 degrees QTc Int : 611 ms Ventricular-paced rhythm Abnormal ECG When compared with ECG of 24-JUN-2022 11:49, Electronic ventricular pacemaker has replaced Atrial fibrillation Confirmed by Jaime Serra ([id number]) on 06/27/2022 2:31:45 PM Referred By: REFERRED SELF Confirmed By:Jaime Serra
--- NOTE | 2022-06-27 17:11 | Hospitalist Progress Note ---
Date of Service June 27, 2022 Assessment & Plan (1) Ventricular tachyarrhythmia: Plan: 81-year-old male with history of metastatic testicular cancer presenting with progressive abdominal pain and distention. Found to have large amount of ascites which was removed via paracentesis in the ER. Moved to telemetry after planned d/c to [facility] after ICD shock/fall from chair to ground. CT head negative Mildly reduced LV systolic function based on recent echo. Likely ischemic in origin. No CP reported but baseline SOB Additional shocks provided however per Dr Mcnair not all true Vtach, some supraventricular arrhythmia Most recent ICD firing AM 06/24, complex tachycardia. Gets diaphoretic sensation/lightheadedness right before shock They did not want to disable ICD therapy for him which would put him obviously at risk for not shocking a true Vtach Had remained on IV amiodarone (TSH now elevated? was normal earlier in stay? playing role in cirrhosis?/GI side effects). Amiodarone level pending -- send out test Started on Cardizem 30mg TID, has been held for hypotension and systolic BP <90 on accession Patient s/p AV rosa ablation with Dr Mcnair 06/26. Paced @ 80 this afternoon, tolerated procedure well Discussed with Dr Mcnair, d/c amiodarone gtt and diltiazem but was still on medication list *Patient reported feeling lightheaded slightly following procedure and appears his diltiazem 30mg was given and BP 106/78 in room. Discontinued diltiazem moving forward but continue the PO amiodarone and carvedilol for now Continue to monitor on telemetry -> Since ablation, no further runs of NSVT or VT. (2) Ascites: Plan: Paracentesis performed with 4L ascitis fluid removed, WBC 71 in ER 06/19 Cytology sent -- without evidence for malignancy. No pain, or evidence for infection or need to cover for SBP Completed 4 cycles of chemo in the summer recent PET scan with improvement in lymphadenopathy, discussed with Dr Morris Patient did have marked ascites on PET scan, only recently placed on lasix, not been on spironolactone but was to d/c on spironolactone 50mg daily per ER discussion with Dr Ledezma following paracentesis in ER for 4L ascitic fluid Patient previously on 40mg daily in the past, recently decreased to 20mg Portal US without evidence of obstruction as done in patient without evicence for liver mets on imaging ?if amiodarone contributing to liver dz/cirrhosis. patient without reported etoh use in >20-30 years GI on consult -- will need outpt f/u Hoping to resume lasix 20mg in AM Aldactone 25mg and titrate up as tolerating regarding his BP which had been hypotensive due to elevated HR/volume overload but difficulty with diuresis as was started on aldactone close to dc to [facility] and had ICD shock/fall as above 10/7 If not able to tolerate diuresis/becomes uncomfortable consider repeat para but wanting to limit development of SBP in patient with multiple comorbidities Continue to monitor Appreciate continued GI f/u -> Plan for paracentesis tomorrow. (3) Cirrhosis: Plan: noted mod-marked abdominal and pelvic ascites on March PET scan. No drinking 20- 30yrs, ?medication related/macias. US portal vein w/o obstruction LFTs wnl, INR 1.1 on recent check Diuretics hopefully to resume AM 10/11 as outlined above GI consulted/follow up Ammonia wnl (4) Weakness: Plan: Progressive weakness over the last several months, likely 2nd to development of ascites and chronic illness/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 from recent chemo this summer and possibly in/out elevated HR/afib/flutter 40lb weight loss R sided pneumonia on admit --> received abx, augmentin/azithromycin. completed more than 7 days, stopped Resume lasix/spironolactone in AM as above for BP, improved since AV ablation this morning Emergency Room Physician Assistant consulted, continue protein supplementation CT head negative for CVA, bleeding (hx brain bleeding) PT/OT consulted, planned for [facility]. may not be good candidate for intensive therapy but will monitor Also consulted palliative for goals of care given complex medical nature /progressive decline over the past two years (5) Pneumonia: Plan: CT of the chest with small patchy ground-glass and nodular densities within the right lower lobe and right middle lobe which is new from prior study. Favoring pneumonia. Patient is afebrile, nontoxic in appearance Placed on Ceftriaxone/Azithro, switched to Augmentin for anaerobic coverage and also to cover prior hip infxn (enteroccocus, sent on keflex outpatient). Completed course inpatient On room air Stated breathing about the same sob, suspect rhtyhm control/volume overload contributing BNP elevated Diuretics to resume in AM Monitor response, albuterol HFA available (6) Atrial flutter: Plan: Patient with history of atrial flutter. Continue amiodarone 200 mg p.o. twice daily, carvedilol See #1 Keep K~4, mag ~2 Monitor on telemetry --> paced following ablation@ 80 (7) Diabetes mellitus: Plan: Chronic. Blood sugar = 193 at present. Last hemoglobin A1c on 04/20/2022 = 5.1% Insulin sliding scale, accu checks AC/HS Monitor BSGs (8) Chronic kidney disease, stage III (moderate): Plan: Renal function at baseline 1.24 --> elevated to 1.47 Gentle IV this morning with 250cc while npo for procedure/low BP lightheadedness , no further also suspect degree ATN from low BPs w/ elevated HRs Nephrology on consult, rec resuming diuretics, plan to do so AM 06/27 (9) CAD (coronary atherosclerotic disease): Plan: Chronic. 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 -- continue supplementation (12) Pressure ulcer: Plan: right hip, seen at PCP, cx enterococcus sensitive to PCNs also topical silver cream per PCP sleeps on that side c/w stage III pressure injury schedule for wound care f/u 06/28 -- can be seen inpatient also has scab to R knee and RLE (scabbed over, nonpainful, no drainage) suspect drainage/scabbing from excessive fluids/ascites --> NONE FURTHER swelling resolved and has remained stable Nonpainful on exam, no erythema/drainage expressed augmentin as outlined above now completed Monitor/frequent turns (13) S/P CABG (coronary artery bypass graft): Plan: noted (14) Hyponatremia: Plan: stable compared to prior values, likely from volume overload BNP elevated but multiple reasons for such planning to resume diuretics in AM monitor Bmp (15) Cardiomyopathy: (16) Atrial fibrillation: Plan: now paced Plan continued inpatient stay, s/p AV rosa ablation stopping IV amiodarone gtt, diltiazem BP improved --> plans to resume lasix/aldactone in AM. Monitor for need for repeat paracentesis Palliative consulted for goals of care [facility] planned initially when medically stable Admission and Anticipated Discharge Date Admission Date: June 19, 2022 Subjective Doing well today. Stomach is still pushing on her. Reports no fevers/chills, chest pain, nausea, or vomiting. Physical Exam Constitutional: WD/WN, vitals as above Eyes: EOM intact bilaterally; no conjunctival abnormality ENMT: external ear and nose normal, oropharynx normal Neck: trachea midline, no thyromegaly normal visual inspection Respiratory: normal respiratory effort, lungs clear to auscultation no respiratory distress Cardiovascular: RRR, no murmur, no edema Gastrointestinal (Abdomen): Inspection/Auscultation: + abdomen distended Percussion/Palpation: abdomen soft and + ascites; abdomen nontender, no guarding and abdomen not rigid Musculoskeletal: no cyanosis or clubbing, extremities motor strength 5/5 Skin: no rashes, warm and dry Neurologic: moves all extremities and awake Psychiatric: Orientation: alert, oriented to person and cooperative Results & Data Results & Data ([facility]) Vital Signs (Past 12 Hours) Vital Signs Temp Pulse Resp BP Pulse Ox O2 Del Method 06/27/22 15:40 36.5 C 80 15 96/63 L 100 Room Air 06/27/22 11:54 36.3 C L 80 18 94/60 L 99 Room Air 06/27/22 07:42 36.6 C 80 16 100/63 100 Room Air PG Care Time/CCT Total # of Minutes Spent Total Time Spent with Patient: Total time spent is greater than 50% in coordination of care (as documented) at patient's floor/unit and/or counseling patient: Coding Level of Care Code 43204 Subseq Hosp Care Lvl 2 Diagnoses Ventricular tachyarrhythmia I47.20 Ascites R18.8 Cirrhosis K74.60 Weakness R53.1 Pneumonia J18.9 Atrial flutter I48.3 Atrial flutter type: typical Diabetes mellitus E11.22; N18.3 Chronic kidney disease stage: stage 3 (moderate) Diabetes mellitus complication detail: with chronic kidney disease Diabetes mellitus complication status: with kidney complications 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 termite insulin use: without [facility] use Diabetes mellitus type: type 2 Chronic kidney disease, stage III (moderate) N18.3 CAD (coronary atherosclerotic disease) I25.10 Germ cell cancer C80.1 Pancytopenia due to antineoplastic chemotherapy D61.810; T45.1X5A Pressure ulcer L89.90 S/P CABG (coronary artery bypass graft) Z95.1 Hyponatremia E87.1 Cardiomyopathy I42.9 Atrial fibrillation I48.91 (1) Diabetes mellitus Chronic kidney disease stage: stage 3 (moderate) Diabetes mellitus complication detail: with chronic kidney disease Diabetes mellitus complication status: with kidney complications Diabetes mellitus [facility] insulin use: without [employer] termite use Diabetes mellitus type: type 2 Qualified Code(s): E11.22 - Type 2 diabetes mellitus with diabetic chronic kidney disease; N18.3 - Chronic kidney disease, stage 3 (moderate) (2) Atrial flutter Atrial flutter type: typical Qualified Code(s): I48.3 - Typical atrial flutter
[2022-06-27] MEDS: TAMSULOSIN HCL 0.4 MG CAP PO SCH (20:14)
[2022-06-27] MEDS: MIRTAZAPINE TAB 15 MG TAB PO SCH (20:14)
[2022-06-28] MEDS: carvediloL 12.5 MG TAB PO SCH ×2 (08:33→20:33)
[2022-06-28] MEDS: FUROSEMIDE 20 MG TAB PO SCH (08:34)
[2022-06-28] MEDS: SPIRONOLACTONE 25 MG TAB PO SCH (08:34)
[2022-06-28 08:37] LABS: Hematocrit (blood only) 33.5 % (40.1-51.0); Hemoglobin 11.2 g/dl (14.0-18.0); White Blood Count 4.11 K/ul (4.8-10.8)
[2022-06-28] MEDS: ASPIRIN 81 MG ECTAB PO SCH (08:51)
[2022-06-28] MEDS: AMIODARONE 200 MG TAB PO SCH ×2 (08:51→17:15)
[2022-06-28 09:00] LABS: Albumin Globulin Ratio 0.7 (0.9-2); Albumin Level 2.6 gm/dl (3.4-5.0); Bilirubin,Total 0.7 mg/dl (0.2-1.0); Calcium 8.2 mg/dl (8.5-10.1); Creatinine Clr Calc Pharmacy 38.5 ml/min; Est GFR (African American) 45.8 ml/min; Est GFR (Non-African American) 39.5 ml/min; Globulin 3.5 gm/dl (2.5-4.0); Magnesium 2.1 mg/dl (1.7-2.4); Potassium 4.1 mmol/L (3.5-5.1); Total Protein 6.1 gm/dl (6.0-8.3)
[2022-06-28 09:02] LABS: INR 1.2 (0.9-1.1); Partial Thromboplastin Ratio 2.6; Prothrombin Time 12.4 Seconds (9.0-12.0)
[2022-06-28 09:06] LABS: Partial Thromboplastin Time 71.1 Seconds (21.0-31.0)
[2022-06-28] MEDS: INSULIN ASPART PER UNIT SC SCH ×4 (09:10→20:31)
[2022-06-28 09:22] LABS: Mean Corpuscular Hgb Conc 33.4 g/dL (32.0-36.0); Mean Corpuscular Volume 95.7 fL (80.0-100.0); Platelet Count 88 K/uL (130-400); RDW Coefficient of Variation 16.9 % (11.5-14.5); RDW Standard Deviation 59.6 fL (36.4-46.3)
--- NOTE | 2022-06-28 09:48 | Cardiology Progress Note ---
Date of Service June 28, 2022 Assessment & Plan (1) Presence of single chamber implantable cardioverter-defibrillator (ICD): (2) Atrial flutter: (3) Cardiomyopathy: Plan 1. Single-chamber ICD: His ICD had been working properly to convert his ventricular tachycardia, however it was detecting his atrial arrhythmia as a ventricular arrhythmia and I had not been able to program around that. Since his VT rate is about the same as his conducted flutter rate when it goes fast I couldn't change rates without potentially missing his VT. Now following ablation he is pacing all the time in the ventricle as expected. He has had no further VT. I discontinued his intravenous amiodarone and if his amiodarone level (which is still pending) is high I would decrease his amiodarone from 400 mg daily to 200 mg daily. I believe his atrial flutter and antitachycardia pacing was inducing ventricular tachycardia and hopefully he will not have much of it going forward with rate control even with reduction in amiodarone, which was not helping very much. 2. Atrial flutter and atrial fibrillation: I believe his rapid heart rates requiring cardioversion started out as atrial flutter and degenerate to VT, now with AV block this should not happen although he may have intrinsic VT. He is now dependent on his pacemaker but this is acceptable. So far his VT has been under good control once we eliminated AV conduction. 3. Cardiomyopathy: His last echocardiogram showed moderate left ventricular dysfunction and he does not have evidence of heart failure on Opti[employer] recordings in his ICD. We have not done an echocardiogram this visit. Although we will now be pacing him in the ventricle consistently following ablation this is preferable. In the future if it is necessary due to development of a pacemaker induced cardiomyopathy we can consider adding a coronary sinus lead and using biventricular pacing. I hope that is not going to be necessary and certainly would not consider it now. I do want to repeat his echocardiogram however and I will order a limited exam for left ventricular function for tomorrow morning. Admission and Anticipated Discharge Date Admission Date: June 19, 2022 Subjective He is feeling well today, he has no palpitations. He is laying supine without shortness of breath. He would like to be able to get out of bed. Physical Exam Physical Exam: Constitutional: Alert, cooperative and in no distress. He is laying supine in bed. HEENT: Unremarkable Neck: No jugular venous distention, carotid pulses are normal and equal bilaterally without bruits. Pulmonary: Clear to auscultation bilaterally. Cardiac: Regular rhythm with a soft holosystolic murmur at the apex, no gallop or rub. Abdomen: Soft, nontender with normal bowel sounds. Extremities: No edema. Distal pulses intact. Neurologic: No focal findings. Gait was not tested. Skin: No rash, ecchymoses or petechiae. Results & Data ([facility]) Vital Signs (Past 12 Hours) Vital Signs Temp Pulse Pulse Resp BP Pulse Ox O2 Del Method 06/28/22 07:30 36.4 C L 80 10 L 93/58 L 96 Room Air 06/28/22 00:00 80 06/28/22 03:00 36.4 C L 80 18 95/59 L 98 Room Air 06/27/22 23:00 36.4 C L 80 18 85/54 L 98 Room Air Laboratory Results Cardiac Enzymes 06/28/22 Range/Units 08:03 AST 20 (13-39) U/L Coagulation 06/28/22 Range/Units 08:03 PT 12.4 H (9.0-12.0) Seconds APTT 71.1 H* (21.0-31.0) Seconds CBC 06/28/22 Range/Units 08:03 WBC 4.11 L (4.8-10.8) K/ul RBC 3.50 L (4.63-6.08) M/uL Hgb 11.2 L (14.0-18.0) g/dl Hct 33.5 L (40.1-51.0) % Plt Count 88 L (130-400) K/uL Comprehensive Metabolic Panel 06/28/22 Range/Units 08:03 Sodium 133 L (136-145) mmol/L Potassium 4.1 (3.5-5.1) mmol/L Chloride 105 (98-107) mmol/L Carbon Dioxide 22 (21-32) mmol/L BUN 26 H (6-23) mg/dl Creatinine 1.62 H (0.6-1.4) mg/dl Glucose 177 H (70-99(Fasting)) mg/dl Calcium 8.2 L (8.5-10.1) mg/dl AST 20 (13-39) U/L ALT 11 (7-52) U/L Alkaline Phosphatase 82 (34-104) U/L Total Protein 6.1 (6.0-8.3) gm/dl Albumin 2.6 L (3.4-5.0) gm/dl Intake and Output 06/27/22 06/28/22 06/28/22 22:59 06:59 14:59 Intake Total 240 / 290 50 / 290 Output Total 300 / 400 Balance -60 / -110 50 / -110 Intake: Oral 240 / 290 50 / 290 Output: Urine 300 / 400 Diagnostic Findings Telemetry: Ventricular pacing throughout, no ventricular arrhythmias since AV rosa ablation. PG Care Time/CCT Total # of Minutes Spent Total Time Spent with Patient: Total time spent is greater than 50% in coordination of care (as documented) at patient's floor/unit and/or counseling patient: Coding Level of Care Code 85485 Subseq Hosp Care Lvl 3 Diagnoses Presence of single chamber implantable cardioverter-defibrillator (ICD) Z95.810 Atrial flutter I48.3 Atrial flutter type: typical Cardiomyopathy I42.9 (1) Atrial flutter Atrial flutter type: typical Qualified Code(s): I48.3 - Typical atrial fl utter
--- NOTE | 2022-06-28 13:34 | Hospitalist Progress Note ---
Date of Service June 28, 2022 Assessment & Plan (1) Ventricular tachyarrhythmia: Plan: 81-year-old male with history of metastatic testicular cancer presenting with progressive abdominal pain and distention. Found to have large amount of ascites which was removed via paracentesis in the ER. Moved to telemetry after planned d/c to [facility] after ICD shock/fall from chair to ground. CT head negative Mildly reduced LV systolic function based on recent echo. Likely ischemic in origin. No CP reported but baseline SOB Additional shocks provided however per Dr Mcnair not all true Vtach, some supraventricular arrhythmia Most recent ICD firing AM 10, complex tachycardia. Gets diaphoretic sensation/lightheadedness right before shock They did not want to disable ICD therapy for him which would put him obviously at risk for not shocking a true Vtach Had remained on IV amiodarone (TSH now elevated? was normal earlier in stay? playing role in cirrhosis?/GI side effects). Amiodarone level pending -- send out test Started on Cardizem 30mg TID, has been held for hypotension and systolic BP <90 on accession Patient s/p AV rosa ablation with Dr Mcnair 06/26. Paced @ 80 this afternoon, tolerated procedure well Discussed with Dr Mcnair, d/c amiodarone gtt and diltiazem but was still on medication list *Patient reported feeling lightheaded slightly following procedure and appears his diltiazem 30mg was given and BP 106/78 in room. Discontinued diltiazem moving forward but continue the PO amiodarone and carvedilol for now Continue to monitor on telemetry -> Since ablation, no further runs of NSVT or VT. (2) Ascites: Plan: Paracentesis performed with 4L ascitis fluid removed, WBC 71 in ER 06/19 Cytology sent -- without evidence for malignancy. No pain, or evidence for infection or need to cover for SBP. Completed 4 cycles of chemo in the summer Recent PET scan with improvement in lymphadenopathy, discussed with Dr Morris Patient did have marked ascites on PET scan, only recently placed on Lasix, not been on spironolactone but was to d/c on spironolactone 50mg daily per ER discussion with Dr Ledezma following paracentesis in ER for 4L ascitic fluid. Patient previously on 40mg daily in the past, recently decreased to 20mg Portal US without evidence of obstruction as done in patient without evidence for liver mets on imaging. ?if amiodarone contributing to liver dz/cirrhosis. patient without reported etoh use in >20-30 years GI on consult -- will need outpt f/u Hoping to resume lasix 20mg in AM Aldactone 25mg and titrate up as tolerating regarding his BP which had been hypotensive due to elevated HR/volume overload but difficulty with diuresis as was started on Aldactone close to dc to [facility] and had ICD shock/fall as above 06/23 (3) Cirrhosis: Plan: Noted mod-marked abdominal and pelvic ascites on March PET scan. No drinking 20- 30yrs, ?medication related/macias. US portal vein w/o obstruction. LFTs wnl, INR 1.1 on recent check Diuretics hopefully to resume AM 06/29 as outlined above GI consulted/follow up Ammonia wnl (4) Weakness: Plan: Progressive weakness over the last several months, likely 2nd to development of ascites and chronic illness/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 from recent chemo this summer and possibly in/out elevated HR/afib/flutter 40lb weight loss R sided pneumonia on admit --> received abx, augmentin/azithromycin. completed more than 7 days, stopped Chief Resource Officer consulted, continue protein supplementation CT head negative for CVA, bleeding (hx brain bleeding) (5) Pneumonia: Plan: CT of the chest with small patchy ground-glass and nodular densities within the right lower lobe and right middle lobe which is new from prior study. Favoring pneumonia. Patient is afebrile, nontoxic in appearance Placed on Ceftriaxone/Azithro, switched to Augmentin for anaerobic coverage and also to cover prior hip infxn (enteroccocus, sent on keflex outpatient). Completed course inpatient On room air Stated breathing about the same sob, suspect rhtyhm control/volume overload contributing BNP elevated Diuretics to resume in AM Monitor response, albuterol HFA available (6) Atrial flutter: Plan: Patient with history of atrial flutter. Continue amiodarone 200 mg p.o. twice daily, carvedilol See #1 Keep K~4, mag ~2 Monitor on telemetry --> paced following ablation@ 80 (7) Diabetes mellitus: Plan: Chronic. Blood sugar = 193 at present. Last hemoglobin A1c on 04/20/2022 = 5.1% Insulin sliding scale, accu checks AC/HS Monitor BSGs (8) Chronic kidney disease, stage III (moderate): Plan: Renal function at baseline 1.24 --> elevated to 1.47 Gentle IV this morning with 250cc while npo for procedure/low BP lightheadedness , no further also suspect degree ATN from low BPs w/ elevated HRs Nephrology on consult, rec resuming diuretics, plan to do so AM 06/27 (9) CAD (coronary atherosclerotic disease): Plan: Chronic. 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 -- continue supplementation (12) Pressure ulcer: Plan: right hip, seen at PCP, cx enterococcus sensitive to PCNs also topical silver cream per PCP sleeps on that side c/w stage III pressure injury schedule for wound care f/u 06/28 -- can be seen inpatient also has scab to R knee and RLE (scabbed over, nonpainful, no drainage) suspect drainage/scabbing from excessive fluids/ascites --> NONE FURTHER swelling resolved and has remained stable Nonpainful on exam, no erythema/drainage expressed augmentin as outlined above now completed Monitor/frequent turns (13) S/P CABG (coronary artery bypass graft): Plan: noted (14) Hyponatremia: Plan: stable compared to prior values, likely from volume overload BNP elevated but multiple reasons for such planning to resume diuretics in AM monitor Bmp (15) Cardiomyopathy: (16) Atrial fibrillation: Plan: now paced Admission and Anticipated Discharge Date Admission Date: June 19, 2022 Subjective Stable today. No major change. Physical Exam Constitutional: WD/WN, vitals as above Eyes: EOM intact bilaterally; no conjunctival abnormality ENMT: external ear and nose normal, oropharynx normal Neck: trachea midline, no thyromegaly normal visual inspection Respiratory: normal respiratory effort, lungs clear to auscultation no respiratory distress Cardiovascular: RRR, no murmur, no edema Gastrointestinal (Abdomen): Inspection/Auscultation: + abdomen distended Percussion/Palpation: abdomen soft and + ascites; abdomen nontender, no guarding and abdomen not rigid Musculoskeletal: no cyanosis or clubbing, extremities motor strength 5/5 Skin: no rashes, warm and dry Neurologic: moves all extremities and awake Psychiatric: Orientation: alert, oriented to person and cooperative Results & Data Results & Data ([facility]) Vital Signs (Past 12 Hours) Vital Signs Temp Pulse Resp BP Pulse Ox O2 Del Method 06/28/22 07:30 36.4 C L 80 10 L 93/58 L 96 Room Air 06/28/22 03:00 36.4 C L 80 18 95/59 L 98 Room Air PG Care Time/CCT Total # of Minutes Spent Total Time Spent with Patient: Total time spent is greater than 50% in coordination of care (as documented) at patient's floor/unit and/or counseling patient: Coding Level of Care Code 45948 Subseq Hosp Care Lvl 2 Diagnoses Ventricular tachyarrhythmia I47.20 Ascites R18.8 Cirrhosis K74.60 Weakness R53.1 Pneumonia J18.9 Atrial flutter I48.3 Atrial flutter type: typical Diabetes mellitus E11.22; N18.3 Diabetes mellitus type: type 2 Diabetes mellitus intermediate insulin use: without intermediate use Diabetes mellitus complication status: with kidney complications Diabetes mellitus complication detail: with chronic kidney disease Chronic kidney disease stage: stage 3 (moderate) Chronic kidney disease, stage III (moderate) N18.3 CAD (coronary atherosclerotic disease) I25.10 Germ cell cancer C80.1 Pancytopenia due to antineoplastic chemotherapy D61.810; T45.1X5A Pressure ulcer L89.90 S/P CABG (coronary artery bypass graft) Z95.1 Hyponatremia E87.1 Cardiomyopathy I42.9 Atrial fibrillation I48.91 (1) Atrial flutter Atrial flutter type: typical Qualified Code(s): I48.3 - Typical atrial flutter (2) Diabetes mellitus Diabetes mellitus type: type 2 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
--- NOTE | 2022-06-28 14:05 | Ultrasound Report ---
US paracentesis abd w/image CLINICAL HISTORY: 81 years-old Male with Symptomatic improvement; no samples needed. Cirrhosis with ascites COMPARISON: Abdominal ultrasound 06/25/2022 PROCEDURE: The procedure was explained to the patient in the care including the benefits and possible risks/complications. The patient gave verbal understanding and written consent was obtained. A time -out was performed prior to the start of the procedure. The patient was placed on the ultrasound table in the supine position. Using ultrasound guidance, an appropriate procedure site in the right lower abdomen was marked. This area was then prepped and drap ed in the usual sterile fashion. Local anesthesia was achieved within 1% lidocaine. An 8-Tamazight cente sis catheter was then inserted. Approximately 8.0 liters of clear, yellowish fluid was removed for th erapeutic purposes only. The catheter was removed and external pressure was held to achieve hemostasis. A sterile dressing was applied to the procedure site. The patient tolerated the procedure well without immediate complicati ons. IMPRESSION: Successful ultrasound-guided paracentesis with removal of 8 L ascitic fluid ACT 112: Negative or not required by law. The above report was generated using voice recognition software. It may contain grammatical, syntax o r spelling errors. Electronically signed by: Marquis Cullen M.D. 06/28/2022 2:03 PM
[2022-06-28] MEDS: ALBUMIN 25% 100 mL 25 GM/100 ML VIAL IV SCH ×2 (16:49→18:20)
[2022-06-28] MEDS: TAMSULOSIN HCL 0.4 MG CAP PO SCH (20:34)
[2022-06-28] MEDS: MIRTAZAPINE TAB 15 MG TAB PO SCH (20:34)
[2022-06-29 06:19] LABS: Hemoglobin 9.9 g/dl (14.0-18.0); White Blood Count 4.26 K/ul (4.8-10.8)
[2022-06-29 06:42] LABS: Mean Corpuscular Hemoglobin 32.5 pg (25.0-34.0); Mean Corpuscular Hgb Conc 34.1 g/dL (32.0-36.0); Mean Corpuscular Volume 95.1 fL (80.0-100.0); Mean Platelet Volume 13.4 fL (9.4-12.4); Platelet Count 77 K/uL (130-400); RDW Coefficient of Variation 16.6 % (11.5-14.5); RDW Standard Deviation 57.6 fL (36.4-46.3); Red Blood Count 3.05 M/uL (4.63-6.08)
[2022-06-29 07:29] LABS: Calcium 8.1 mg/dl (8.5-10.1); Creatinine Clr Calc Pharmacy 40.8 ml/min; Est GFR (Non-African American) 42.3 ml/min; Potassium 3.9 mmol/L (3.5-5.1)
[2022-06-29] MEDS: ASPIRIN 81 MG ECTAB PO SCH (08:40)
[2022-06-29] MEDS: AMIODARONE 200 MG TAB PO SCH ×2 (08:40→16:40)
[2022-06-29] MEDS: INSULIN ASPART PER UNIT SC SCH ×4 (09:03→19:42)
[2022-06-29] MEDS: SPIRONOLACTONE 25 MG TAB PO SCH (09:07)
[2022-06-29] MEDS: carvediloL 12.5 MG TAB PO SCH ×2 (09:07→19:43)
[2022-06-29] MEDS: FUROSEMIDE 20 MG TAB PO SCH (09:07)
--- NOTE | 2022-06-29 09:42 | Cardiology Progress Note ---
Date of Service June 29, 2022 Assessment & Plan (1) Presence of single chamber implantable cardioverter-defibrillator (ICD): (2) Atrial fibrillation: (3) Ventricular tachyarrhythmia: Plan 1. Single-chamber ICD: His ICD had been working properly to convert his ventricular tachycardia, however it was detecting his atrial arrhythmia as a ventricular arrhythmia and I had not been able to program around that. Since his VT rate is about the same as his conducted flutter rate when it goes fast I couldn't change rates without potentially missing his VT. Now following ablation he is pacing all the time in the ventricle as expected. He has had no further VT. I discontinued his intravenous amiodarone and if his amiodarone level (which is still pending) is high I would decrease his amiodarone from 400 mg daily to 200 mg daily. I believe his atrial flutter and antitachycardia pacing was inducing ventricular tachycardia and hopefully he will not have much of it going forward with rate control even with reduction in amiodarone, which was not helping very much. 2. Atrial flutter and atrial fibrillation: I believe his rapid heart rates requiring cardioversion started out as atrial flutter and degenerate to VT, now with AV block this should not happen although he may have intrinsic VT. He is now dependent on his pacemaker but this is acceptable. So far his VT has been under good control once we eliminated AV conduction. 3. Cardiomyopathy: His last echocardiogram showed moderate left ventricular dysfunction and he does not have evidence of heart failure on OptiVol recordings in his ICD. We have not done an echocardiogram this visit, that was done this morning and is pending. Although we will now be pacing him in the ventricle consistently following ablation this is preferable. In the future if it is necessary due to development of a pacemaker induced cardiomyopathy we can consider adding a coronary sinus lead and using biventricular pacing. I hope that is not going to be necessary and certainly would not consider it now. Admission and Anticipated Discharge Date Admission Date: June 19, 2022 Subjective He is complaining of dizziness today, I do not remember him complaining of that before. He is not short of breath. I believe he is still not very active. He also believes that his belly is becoming filled up with fluid again, based on how he feels. No palpitations or chest discomfort. Physical Exam Physical Exam: Constitutional: Alert, cooperative and in no distress. HEENT: Unremarkable Neck: No jugular venous distention, carotid pulses are normal and equal bilaterally without bruits. Pulmonary: Clear to auscultation bilaterally. Cardiac: Regular rhythm with no murmur, gallop or rub. Abdomen: Soft, nontender with normal bowel sounds. I suspect ascites. Extremities: No edema. Distal pulses intact. Neurologic: No focal findings. Gait was not tested. Skin: No rash, ecchymoses or petechiae. The right groin catheter insertion site looks good with no hematoma, erythema or tenderness. Results & Data ([facility]) Vital Signs (Past 12 Hours) Vital Signs Temp Pulse Pulse Resp BP Pulse Ox O2 Del Method 06/29/22 03:33 36.4 C L 80 18 93/59 L 100 06/29/22 00:39 36.4 C L 80 20 90/56 L 99 Room Air 06/28/22 23:28 80 Laboratory Results CBC 06/29/22 Range/Units 05:37 WBC 4.26 L (4.8-10.8) K/ul RBC 3.05 L (4.63-6.08) M/uL Hgb 9.9 L (14.0-18.0) g/dl Hct 29.0 L (40.1-51.0) % Plt Count 77 L (130-400) K/uL Comprehensive Metabolic Panel 06/29/22 Range/Units 05:37 Sodium 137 (136-145) mmol/L Potassium 3.9 (3.5-5.1) mmol/L Chloride 107 (98-107) mmol/L Carbon Dioxide 24 (21-32) mmol/L BUN 23 (6-23) mg/dl Creatinine 1.53 H (0.6-1.4) mg/dl Glucose 123 H (70-99(Fasting)) mg/dl Calcium 8.1 L (8.5-10.1) mg/dl Intake and Output 06/28/22 06/29/22 06/29/22 22:59 06:59 14:59 Intake Total 295.833 / 295.833 Output Total 200 / 200 Balance 95.833 / 95.833 Intake: IV 145.833 / 145.833 ALBUMIN 25% 100 mL 25 gm In 100 145.833 / 145.833 ml @ 50 mls/hr IV Q2H JANEEN Rx#: [id number] Oral 150 / 150 Output: Urine 200 / 200 Other: Other Intake Source sips # Unmeasured Voids 2 Diagnostic Findings Telemetry: Ventricular paced rhythm, no ventricular tachycardia Echocardiogram this morning: Pending PG Care Time/CCT Total # of Minutes Spent Total Time Spent with Patient: Total time spent is greater than 50% in coordination of care (as documented) at patient's floor/unit and/or counseling patient: Coding Level of Care Code 62622 Subseq Hosp Care Lvl 2 Diagnoses Presence of single chamber implantable cardioverter-defibrillator (ICD) Z95.810 Atrial fibrillation I48.91 Ventricular tachyarrhythmia I47.20
[2022-06-29] MEDS: HEPARIN 100 UNIT/ML 5ML FLUSH FLUSH PRN (10:33)
--- NOTE | 2022-06-29 14:59 | Hospitalist Progress Note ---
Date of Service June 29, 2022 Assessment & Plan (1) Cirrhosis: Plan: Possibly cardiogenic? The ascites was first noted on March PET scan. Nothing noted prior to that. Discussed whether it could be from carboplatin/etoposide, but this seems highly unlikely per GI and oncology as neither has reports of long-term liver injury. GI points out that cirrhosis stems from long-standing, low-level liver damage, not from acute insult, and therefore, chemotherapy- induced would be unlikely. - Possibly NELSON? - GI asked multiple times to weigh in and feel outpatient work-up is most appropriate. - Resumed diuretics on 06/29 - O/p f/u with GI planned (2) Ascites: Plan: Paracentesis performed with 4L ascitis fluid removed on 06/19. Paracentesis with 8L removed (followed by albumin) on 06/28. Cytology sent -- without evidence for malignancy. No pain, or evidence for infection or need to cover for SBP. - Diuretics as above - Hope to avoid chronic paracenteses, but will likely need further as his kidney function precludes aggressive duiuretics. (3) Chronic kidney disease, stage III (moderate): Plan: Renal function at baseline ~1.3 --> elevated to 1.5 recently. Some concern for hepatorenal syndrome. - Resumed Lasix/spironolactone on 06/29 to hopefully avoid ascites build-up - Monitor BMP daily (4) Ventricular tachyarrhythmia: Plan: Had several ICDs fires on 06/23. Most recent ICD firing AM 06/24, wide-complex tachycardia. Per Dr. Mcnair, he was having some SVT with aberrancy which device was interpreting as VT, but then additionally, some episodes of VT triggered by the SVT. - Underwent AV rosa ablation with Dr Mcnair 06/26. Since ablation, no further runs of NSVT or VT. - Continue amiodarone 200 mg PO BID - Consider starting anticoagulation per Dr. Mcnair as his atrial rhythm remains afib (5) Atrial flutter: Plan: Patient with history of atrial flutter. - Continue amiodarone as above - Switch carvedilol to Toprol XL for continued low BPs (6) Weakness: Plan: Progressive weakness over the last several months, likely 2nd to development of ascites and chronic illness/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 from recent chemo this summer and possibly in/out elevated HR/afib/flutter. - PT/OT - Plan for rehab (7) Pneumonia: Plan: CT of the chest with small patchy ground-glass and nodular densities within the right lower lobe and right middle lobe which is new from prior study. Favoring pneumonia. - Finished ceftriaxone/azithro, then Augmentin while in the hospital. (8) Diabetes mellitus: Plan: Chronic. Blood sugar = 193 at present. Last hemoglobin A1c on 04/20/2022 = 5.1%. - Sliding scale insulin -> Blood sugars 100 - 120 in last 24 hours. (9) CAD (coronary atherosclerotic disease): Plan: Chronic. Recent ECHo does show slightly reduced EF. Hx cardiomyopathy, possible ischemic basis. 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 Recent PET scan with resolution of cancer. Discussed with Dr Morris, recs for the cytology from pleural fluid to ensure not malignancy --> negative. 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 Also with severe protein calorie malnutrition with recent weight loss/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. - Research Intern on consult -- continue supplementation (12) Pressure ulcer: Plan: Right hip, seen at PCP, cx enterococcus sensitive to PCNs. Sleeps on that side. - Also topical silver cream per PCP c/w stage III pressure injury schedule for wound care f/u 06/28 -- can be seen inpatient also has scab to R knee and RLE (scabbed over, nonpainful, no drainage) suspect drainage/scabbing from excessive fluids/ascites --> NONE FURTHER swelling resolved and has remained stable - Augmentin as outlined above now completed Plan DVT ppx: Will start anticoagulation for his afib/flutter FULL CODE: In discussion with palliative care. Wants to be full code; just does not want artificial nutrition. Admission and Anticipated Discharge Date Admission Date: June 19, 2022 Subjective Reports some dizziness today. Reports no fevers/chills, chest pain, shortness of breath, abdominal pain, nausea, or vomiting. Physical Exam Constitutional: WD/WN, vitals as above Eyes: EOM intact bilaterally; no conjunctival abnormality ENMT: external ear and nose normal, oropharynx normal Neck: trachea midline, no thyromegaly normal visual inspection Respiratory: normal respiratory effort, lungs clear to auscultation no respiratory distress Cardiovascular: RRR, no murmur, no edema Gastrointestinal (Abdomen): Inspection/Auscultation: + abdomen distended Percussion/Palpation: abdomen soft and + ascites; abdomen nontender, no guarding and abdomen not rigid Musculoskeletal: no cyanosis or clubbing, extremities motor strength 5/5 Skin: no rashes, warm and dry Neurologic: moves all extremities and awake Psychiatric: Orientation: alert, oriented to person and cooperative Results & Data Results & Data ([facility]) Vital Signs (Past 12 Hours) Vital Signs Temp Pulse Resp BP BP Pulse Ox O2 Del Method 06/29/22 11:38 36.5 C 88 18 104/60 97 06/29/22 10:42 Room Air 06/29/22 03:33 36.4 C L 80 18 93/59 L 100 PG Care Time/CCT Total # of Minutes Spent Total Time Spent with Patient: Total time spent is greater than 50% in coordination of care (as documented) at patient's floor/unit and/or counseling patient: Coding Level of Care Code 96003 Subseq Hosp Care Lvl 3 Diagnoses Cirrhosis K74.60 Ascites R18.8 Chronic kidney disease, stage III (moderate) N18.3 Ventricular tachyarrhythmia I47.20 Atrial flutter I48.3 Atrial flutter type: typical Weakness R53.1 Pneumonia J18.9 Diabetes mellitus E11.22; N18.3 Diabetes mellitus type: type 2 Diabetes mellitus detention insulin use: without 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 Diabetes mellitus complication status: with kidney complications Diabetes mellitus complication detail: with chronic kidney disease Chronic kidney disease stage: stage 3 (moderate) CAD (coronary atherosclerotic disease) I25.10 Germ cell cancer C80.1 Pancytopenia due to antineoplastic chemotherapy D61.810; T45.1X5A Pressure ulcer L89.90 (1) Atrial flutter Atrial flutter type: typical Qualified Code(s): I48.3 - Typical atrial flutter (2) Diabetes mellitus Diabetes mellitus type: type 2 Diabetes mellitus detention insulin use: without detention use Diabetes mellitus complication status: with kidney complications Diabetes mellitus complication detail: with chronic kidney disease Chronic kidney disease stage: stage 3 (moderate) Qualified Code(s): E11.22 - Type 2 diabetes mellitus with diabetic chronic kidney disease; N18.3 - Chronic kidney disease, stage 3 (moderate)
--- NOTE | 2022-06-29 18:18 | XCELERA ---
[id number]
[2022-06-29] MEDS: TAMSULOSIN HCL 0.4 MG CAP PO SCH (19:34)
[2022-06-29] MEDS: MIRTAZAPINE TAB 15 MG TAB PO SCH (19:34)
[2022-06-30 06:17] LABS: Hematocrit (blood only) 31.8 % (40.1-51.0); Hemoglobin 10.7 g/dl (14.0-18.0); White Blood Count 4.78 K/ul (4.8-10.8)
[2022-06-30 06:35] LABS: Mean Corpuscular Hemoglobin 32.2 pg (25.0-34.0); Mean Corpuscular Hgb Conc 33.6 g/dL (32.0-36.0); Mean Corpuscular Volume 95.8 fL (80.0-100.0); Mean Platelet Volume 13.2 fL (9.4-12.4); Platelet Count 89 K/uL (130-400); RDW Coefficient of Variation 16.6 % (11.5-14.5); RDW Standard Deviation 58.6 fL (36.4-46.3); Red Blood Count 3.32 M/uL (4.63-6.08)
[2022-06-30 06:49] LABS: Albumin Level 2.7 gm/dl (3.4-5.0); BUN Creatinine Ratio 18.8 (10-20); Bilirubin,Total 0.9 mg/dl (0.2-1.0); Creatinine Clr Calc Pharmacy 41.1 ml/min; Est GFR (African American) 55.6 ml/min; Est GFR (Non-African American) 47.9 ml/min; Globulin 2.7 gm/dl (2.5-4.0); Magnesium 1.8 mg/dl (1.7-2.4); Potassium 3.8 mmol/L (3.5-5.1); Total Protein 5.4 gm/dl (6.0-8.3)
[2022-06-30] MEDS: INSULIN ASPART PER UNIT SC SCH ×4 (07:59→20:11)
[2022-06-30] MEDS: AMIODARONE 200 MG TAB PO SCH (08:00)
[2022-06-30] MEDS: SPIRONOLACTONE 25 MG TAB PO SCH (08:21)
[2022-06-30] MEDS: ASPIRIN 81 MG ECTAB PO SCH (08:21)
[2022-06-30] MEDS: FUROSEMIDE 20 MG TAB PO SCH (08:21)
[2022-06-30] MEDS: carvediloL 12.5 MG TAB PO SCH ×2 (08:21→20:06)
--- NOTE | 2022-06-30 08:29 | Cardiology Progress Note ---
Date of Service June 30, 2022 Assessment & Plan (1) Presence of single chamber implantable cardioverter-defibrillator (ICD): (2) Atrial fibrillation: (3) Ventricular tachyarrhythmia: (4) On amiodarone therapy: (5) Dizziness: Plan 1. Single-chamber ICD: His ICD had been working properly to convert his ventricular tachycardia, however it was detecting his atrial arrhythmia as a ventricular arrhythmia (since it was a single-chamber device) and I had not been able to program around that. Since his VT rate is about the same as his conducted flutter rate when it goes fast I couldn't change detection rates without potentially missing his VT. Now following ablation he is pacing all the time in the ventricle as expected. He has had no further VT. I believe his atrial flutter and antitachycardia pacing was inducing ventricular tachycardia and hopefully he will not have much of it going forward with rate control even with reduction in amiodarone, which was not helping very much for his atrial arrhythmia. 2. Atrial flutter and atrial fibrillation: I believe his rapid heart rates requiring cardioversion started out as atrial flutter and degenerated to VT, now with AV block this should not happen although he may have intrinsic VT. He is now dependent on his pacemaker but this is acceptable. So far his VT has been under good control once we eliminated AV conduction. 3. Cardiomyopathy: His last echocardiogram showed moderate left ventricular dysfunction however his echocardiogram on June 29, 2022 shows severe left ventricular dysfunction. This is not too surprising considering how ill he has been, I am not sure how much of a contribution right ventricular apex pacing has to this finding. And he has not had evidence of heart failure on OptiVol recordings in his ICD. In the future if it is necessary due to development of a pacemaker induced cardiomyopathy and heart failure symptoms we can consider adding a coronary sinus lead and using biventricular pacing. I hope that is not going to be necessary and certainly would not consider it now. 4. Amiodarone: He has been on amiodarone therapy for about 4 years I believe, his amiodarone level has never been excessive and his amiodarone level last week was not in the toxic range (1.5 with a desethyl amiodarone of less than 1). I cannot exclude the possibility that the cirrhosis is due to amiodarone but I do not know of any way to prove it. It would be safe to discontinue the amiodarone now, perhaps with heart rate control and regularization of his rhythm he will not have frequent episodes of ventricular arrhythmias even off of amiodarone. I am going to discontinue his oral amiodarone today. 5. Dizziness: He has been having some dizziness, even lying in bed, although he describes specific discrete times when he had it yesterday. He thought it might of been associated with an arrhythmia but there was no arrhythmia on monitoring. His blood pressure is no better today than it has been, I do not know if low blood pressure is a cause of the symptoms. If we feel dizziness is due to hypotension we can decrease his carvedilol with the understanding that that may be detrimental to his cardiomyopathy. I have not done that. Admission and Anticipated Discharge Date Admission Date: June 19, 2022 Subjective He tells me he is feeling better today, he reports several distinct episodes of dizziness yesterday afternoon and he has not had any today. Of note his blood pressure appears no better today than yesterday. He does not have shortness of breath, chest discomfort or palpitations. Physical Exam Physical Exam: Constitutional: Alert, cooperative and in no distress. HEENT: Unremarkable Neck: No jugular venous distention, carotid pulses are normal and equal bilaterally without bruits. Pulmonary: Clear to auscultation bilaterally. Cardiac: Regular rhythm with no murmur, gallop or rub. Abdomen: Soft, nontender with normal bowel sounds. I suspect ascites. Extremities: No edema. Distal pulses intact. Neurologic: No focal findings. Gait was not tested. Skin: No rash, ecchymoses or petechiae. Results & Data ([facility]) Vital Signs (Past 12 Hours) Vital Signs Temp Pulse Resp BP BP Pulse Ox O2 Del Method 06/30/22 07:32 36.7 C 81 19 91/56 L 100 Room Air 06/30/22 03:00 36.4 C L 80 18 91/53 L 97 Room Air 06/29/22 23:00 36.6 C 87 18 90/46 L 95 Nasal Cannula Laboratory Results Cardiac Enzymes 06/30/22 Range/Units 05:21 AST 16 (13-39) U/L CBC 06/30/22 Range/Units 05:21 WBC 4.78 L (4.8-10.8) K/ul RBC 3.32 L (4.63-6.08) M/uL Hgb 10.7 L (14.0-18.0) g/dl Hct 31.8 L (40.1-51.0) % Plt Count 89 L (130-400) K/uL Comprehensive Metabolic Panel 06/30/22 Range/Units 05:21 Sodium 135 L (136-145) mmol/L Potassium 3.8 (3.5-5.1) mmol/L Chloride 105 (98-107) mmol/L Carbon Dioxide 24 (21-32) mmol/L BUN 26 H (6-23) mg/dl Creatinine 1.38 (0.6-1.4) mg/dl Glucose 146 H (70-99(Fasting)) mg/dl Calcium 8.0 L (8.5-10.1) mg/dl AST 16 (13-39) U/L ALT 9 (7-52) U/L Alkaline Phosphatase 66 (34-104) U/L Total Protein 5.4 L (6.0-8.3) gm/dl Albumin 2.7 L (3.4-5.0) gm/dl Intake and Output 06/29/22 06/30/22 06/30/22 22:59 06:59 14:59 Intake Total 0 / 200 200 / 200 Output Total 550 / 900 350 / 900 100 / 100 Balance -550 / -700 -150 / -700 -100 / -100 Intake: IV 0 / 0 ALBUMIN 25% 100 mL 25 gm In 100 0 / 0 ml @ 50 mls/hr IV Q2H [facility] Rx#: [id number] Oral 200 / 200 Output: Urine 550 / 900 350 / 900 100 / 100 Other: Other Intake Source sips Weight 74.9 kg 68 kg Weight Measurement Method Built in [facility] Diagnostic Findings Telemetry: Ventricular pacing throughout, no ventricular arrhythmias Echocardiogram yesterday: Severe left ventricular dysfunction, worse than on his prior echocardiogram. PG Care Time/CCT Total # of Minutes Spent Total Time Spent with Patient: Total time spent is greater than 50% in coordination of care (as documented) at patient's floor/unit and/or counseling patient: Coding Level of Care Code 84469 Subseq Hosp Care Lvl 3 Diagnoses Presence of single chamber implantable cardioverter-defibrillator (ICD) Z95.810 Atrial fibrillation I48.91 Ventricular tachyarrhythmia I47.20 On amiodarone therapy Z79.899 Dizziness R42
[2022-06-30 12:13] LABS: Ferritin 109.6 ng/ml (8-388)
--- NOTE | 2022-06-30 16:59 | Hospitalist Progress Note ---
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 The ascites was first noted on March PET scan. Nothing noted prior to that. Discussed whether it could be from carboplatin/etoposide, but this seems highly unlikely per GI and oncology as neither has reports of long-term liver injury. - Ferritin and transferrin saturation both too low for hemochromatosis. - A1-AT and ceruloplasmin pending. - Hepatitis panel pending - Resumed diuretics on 06/29 - O/p f/u with GI planned (2) Ascites: Plan: Paracentesis performed with 4L ascites fluid removed on 06/19. Paracentesis with 8L removed (followed by albumin) on 06/28. Cytology sent -- without evidence for malignancy. No pain, or evidence for infection or need to cover for SBP. - Diuretics as above - Hope to avoid chronic paracenteses, but will likely need further as his kidney function precludes aggressive diuretics. (3) Chronic kidney disease, stage III (moderate): Plan: Renal function at baseline ~1.3 --> elevated to 1.5 recently. Some concern for hepatorenal syndrome. - Resumed Lasix/spironolactone on 06/29 to hopefully avoid ascites build-up - Monitor BMP daily -> 1.4 today. (4) Ventricular tachyarrhythmia: Plan: Had several ICDs fires on 06/23. Most recent ICD firing AM 06/24, wide-complex tachycardia. Per Dr. Mcnair, he was having some SVT with aberrancy which device was interpreting as VT, but then additionally, some episodes of VT triggered by the SVT. - Stopped amiodarone on 06/29 given some concern for amiodarone-related liver injury - Underwent AV rosa ablation with Dr Mcnair 06/26. Since ablation, no further runs of NSVT or VT. - Consider starting anticoagulation per Dr. Mcnair as his atrial rhythm remains afib. Will (5) Atrial flutter: Plan: Patient with history of atrial flutter. - Stopped amiodarone as above - Continue carvedilol (6) Weakness: Plan: Progressive weakness over the last several months, likely 2nd to development of ascites and chronic illness/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 from recent chemo this summer and possibly in/out elevated HR/afib/flutter. - PT/OT - Plan for rehab when able. (7) Pneumonia: Plan: CT of the chest with small patchy ground-glass and nodular densities within the right lower lobe and right middle lobe which is new from prior study. Favoring pneumonia. - Finished ceftriaxone/azithro, then Augmentin while in the hospital. (8) Diabetes mellitus: Plan: Chronic. Blood sugar = 193 at present. Last hemoglobin A1c on 04/20/2022 = 5.1%. - Sliding scale insulin -> Blood sugars 100 - 120 in last 24 hours. (9) CAD (coronary atherosclerotic disease): Plan: Chronic. Recent ECHo does show slightly reduced EF. Hx cardiomyopathy, possible ischemic basis. 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 Recent PET scan with resolution of cancer. Discussed with randal Watts for the cytology from pleural fluid to ensure not malignancy --> negative. 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 Also with severe protein calorie malnutrition with recent weight loss/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. - Radio Operator Ground on consult -- continue supplementation (12) Pressure ulcer: Plan: Right hip, seen at PCP, cx enterococcus sensitive to PCNs. Sleeps on that side. - Also topical silver cream per PCP c/w stage III pressure injury schedule for wound care f/u 06/28 -- can be seen inpatient also has scab to R knee and RLE (scabbed over, nonpainful, no drainage) suspect drainage/scabbing from excessive fluids/ascites --> NONE FURTHER swelling resolved and has remained stable - Augmentin as outlined above now completed Plan DVT ppx: Will start anticoagulation for his afib/flutter FULL CODE: In discussion with palliative care. Wants to be full code; just does not want artificial nutrition. Admission and Anticipated Discharge Date Admission Date: June 19, 2022 Subjective Some dizziness off and on today. He feels it is still there when lying down. Stomach has re-accumulated some of the pressure, but he reports it is not significantly worse than yesterday. Reports no fevers/chills, chest pain, shortness of breath, abdominal pain, nausea, or vomiting. Physical Exam Constitutional: WD/WN, vitals as above Eyes: EOM intact bilaterally; no conjunctival abnormality ENMT: external ear and nose normal, oropharynx normal Neck: trachea midline, no thyromegaly normal visual inspection Respiratory: normal respiratory effort, lungs clear to auscultation no respiratory distress Cardiovascular: RRR, no murmur, no edema Gastrointestinal (Abdomen): Inspection/Auscultation: + abdomen distended Percussion/Palpation: abdomen soft and + ascites; abdomen nontender, no guarding and abdomen not rigid Musculoskeletal: no cyanosis or clubbing, extremities motor strength 5/5 Skin: no rashes, warm and dry Neurologic: moves all extremities and awake Psychiatric: Orientation: alert, oriented to person and cooperative Results & Data Results & Data ([facility]) Vital Signs (Past 12 Hours) Vital Signs Temp Pulse Resp BP Pulse Ox O2 Del Method 06/30/22 16:11 36.4 C L 80 19 93/56 L 96 Room Air 06/30/22 11:20 36.3 C L 80 18 95/60 L 98 Room Air 06/30/22 08:25 Room Air 06/30/22 07:32 36.7 C 81 19 91/56 L 100 Room Air PG Care Time/CCT Total # of Minutes Spent Total Time Spent with Patient: Total time spent is greater than 50% in coordination of care (as documented) at patient's floor/unit and/or counseling patient: Coding Level of Care Code 15063 Subseq Hosp Care Lvl 3 Diagnoses Cirrhosis K74.60 Ascites R18.8 Chronic kidney disease, stage III (moderate) N18.3 Ventricular tachyarrhythmia I47.20 Atrial flutter I48.3 Atrial flutter type: typical Weakness R53.1 Pneumonia J18.9 Diabetes mellitus E11.22; N18.3 Diabetes mellitus type: type 2 Diabetes mellitus technician terminal and repeater insulin use: without fci use Diabetes mellitus complication status: with kidney complications Diabetes mellitus complication detail: with chronic kidney disease Chronic kidney disease stage: stage 3 (moderate) CAD (coronary atherosclerotic disease) I25.10 Germ cell cancer C80.1 Pancytopenia due to antineoplastic chemotherapy D61.810; T45.1X5A Pressure ulcer L89.90 (1) Atrial flutter Atrial flutter type: typical Qualified Code(s): I48.3 - Typical atrial flutter (2) Diabetes mellitus Diabetes mellitus type: type 2 Diabetes mellitus fci insulin use: without technician terminal and repeater use Diabetes mellitus complication status: with kidney complications Diabetes mellitus complication detail: with chronic kidney disease Chronic kidney disease stage: stage 3 (moderate) Qualified Code(s): E11.22 - Type 2 diabetes mellitus with diabetic chronic kidney disease; N18.3 - Chronic kidney disease, stage 3 (moderate)
[2022-06-30] MEDS: TAMSULOSIN HCL 0.4 MG CAP PO SCH (20:07)
[2022-06-30] MEDS: MIRTAZAPINE TAB 15 MG TAB PO SCH (20:07)
[2022-06-30] MEDS: ENOXAPARIN 80 MG/0.8 ML SYR SQ SCH (20:28)
[2022-07-01 06:21] LABS: Hematocrit (blood only) 32.7 % (40.1-51.0); Hemoglobin 11.2 g/dl (14.0-18.0); White Blood Count 4.58 K/ul (4.8-10.8)
[2022-07-01 06:46] LABS: Mean Corpuscular Hemoglobin 32.4 pg (25.0-34.0); Mean Corpuscular Hgb Conc 34.3 g/dL (32.0-36.0); Mean Corpuscular Volume 94.5 fL (80.0-100.0); Mean Platelet Volume 13.1 fL (9.4-12.4); Platelet Count 95 K/uL (130-400); RDW Coefficient of Variation 16.5 % (11.5-14.5); RDW Standard Deviation 56.9 fL (36.4-46.3); Red Blood Count 3.46 M/uL (4.63-6.08)
[2022-07-01 07:25] LABS: Albumin Globulin Ratio 0.9 (0.9-2); Albumin Level 2.7 gm/dl (3.4-5.0); BUN Creatinine Ratio 19.9 (10-20); Calcium 7.9 mg/dl (8.5-10.1); Creatinine Clr Calc Pharmacy 36.2 ml/min; Est GFR (African American) 49.8 ml/min; Globulin 2.9 gm/dl (2.5-4.0); Magnesium 1.8 mg/dl (1.7-2.4); Potassium 3.5 mmol/L (3.5-5.1); Total Protein 5.6 gm/dl (6.0-8.3)
[2022-07-01] MEDS: SPIRONOLACTONE 25 MG TAB PO SCH (09:08)
[2022-07-01] MEDS: INSULIN ASPART PER UNIT SC SCH ×4 (09:08→21:03)
[2022-07-01] MEDS: FUROSEMIDE 20 MG TAB PO SCH (09:08)
[2022-07-01] MEDS: ENOXAPARIN 80 MG/0.8 ML SYR SQ SCH ×2 (09:08→20:08)
[2022-07-01] MEDS: carvediloL 12.5 MG TAB PO SCH ×2 (09:08→20:08)
[2022-07-01] MEDS: ASPIRIN 81 MG ECTAB PO SCH (09:08)
--- NOTE | 2022-07-01 14:01 | Hospitalist Progress Note ---
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 The ascites was first noted on March PET scan. Nothing noted prior to that. Discussed whether it could be from carboplatin/etoposide, but this seems highly unlikely per GI and oncology as neither has reports of long-term liver injury. - Ferritin and transferrin saturation both too low for hemochromatosis. - A1-AT and ceruloplasmin pending. - Hepatitis panel pending - Resumed diuretics (Lasix 20 mg daily & spironolactone 25 mg daily) on 06/29 - Slight rise in Cr, but likely expected from spironolactone. - O/p f/u with GI planned (2) Ascites: Plan: Paracentesis performed with 4L ascites fluid removed on 06/19. Paracentesis with 8L removed (followed by albumin) on 06/28. Cytology sent -- without evidence for malignancy. No pain, or evidence for infection or need to cover for SBP. - Diuretics as above - Hope to avoid chronic paracenteses, but will likely need further as his kidney function precludes aggressive diuretics. (3) Chronic kidney disease, stage III (moderate): Plan: Renal function at baseline ~1.3 --> elevated to 1.5 recently. Some concern for hepatorenal syndrome. - Resumed Lasix/spironolactone on 06/29 to hopefully avoid ascites build-up - Monitor BMP daily -> 1.5 today. (4) Ventricular tachyarrhythmia: Plan: Had several ICDs fires on 06/23. Most recent ICD firing AM 06/24, wide-complex tachycardia. Per Dr. Mcnair, he was having some SVT with aberrancy which device was interpreting as VT, but then additionally, some episodes of VT triggered by the SVT. - Stopped amiodarone on 06/29 given some concern for amiodarone-related liver injury - Underwent AV rosa ablation with Dr Mcnair 06/26. Since ablation, no further runs of NSVT or VT. - Consider starting anticoagulation per Dr. Mcnair as his atrial rhythm remains afib. Discussed with pharmacy - Started Lovenox 70 mg SQ BID on 06/30 as best option. DOACs contraindicated with cirrhosis. (5) Atrial flutter: Plan: Patient with history of atrial flutter. None since ablation on 06/26/2022. - Stopped amiodarone as above - Continue carvedilol (6) Weakness: Plan: Progressive weakness over the last several months, likely 2nd to development of ascites and chronic illness/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 from recent chemo this summer and possibly in/out elevated HR/afib/flutter. - PT/OT - Plan for rehab when able. Presently not even able to stand more than 1 minute. (7) Pneumonia: Plan: CT of the chest with small patchy ground-glass and nodular densities within the right lower lobe and right middle lobe which is new from prior study. Favoring pneumonia. - Finished ceftriaxone/azithro, then Augmentin while in the hospital. (8) Diabetes mellitus: Plan: Chronic. Blood sugar = 193 at present. Last hemoglobin A1c on 04/20/2022 = 5.1%. - Sliding scale insulin -> Blood sugars 120 - 190 in last 24 hours. (9) CAD (coronary atherosclerotic disease): Plan: Chronic. Recent ECHo does show slightly reduced EF. Hx cardiomyopathy, possible ischemic basis. 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 Recent PET scan with resolution of cancer. Discussed with randal Watts for the cytology from pleural fluid to ensure not malignancy --> negative. 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 Also with severe protein calorie malnutrition with recent weight loss/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. - Landscaping Specialist on consult -- continue supplementation (12) Pressure ulcer: Plan: Right hip, seen at PCP, cx enterococcus sensitive to PCNs. Sleeps on that side. - Also topical silver cream per PCP c/w stage III pressure injury schedule for wound care f/u 06/28 -- can be seen inpatient also has scab to R knee and RLE (scabbed over, nonpainful, no drainage) suspect drainage/scabbing from excessive fluids/ascites --> NONE FURTHER swelling resolved and has remained stable - Augmentin as outlined above now completed Plan DVT ppx: Lovenox for his afib/flutter FULL CODE: In discussion with palliative care. Wants to be full code; just does not want artificial nutrition. Admission and Anticipated Discharge Date Admission Date: June 19, 2022 Subjective Some dizziness off and on today. This is still not changing unfortunately. Stomach has re-accumulated some of the pressure, but he reports it is not significantly worse than yesterday. Reports no fevers/chills, chest pain, shortness of breath, abdominal pain, nausea, or vomiting. Physical Exam Constitutional: WD/WN, vitals as above Eyes: EOM intact bilaterally; no conjunctival abnormality ENMT: external ear and nose normal, oropharynx normal Neck: trachea midline, no thyromegaly normal visual inspection Respiratory: normal respiratory effort, lungs clear to auscultation no respiratory distress Cardiovascular: RRR, no murmur, no edema Gastrointestinal (Abdomen): Inspection/Auscultation: + abdomen distended Percussion/Palpation: abdomen soft and + ascites; abdomen nontender, no guarding and abdomen not rigid Musculoskeletal: no cyanosis or clubbing, extremities motor strength 5/5 Skin: no rashes, warm and dry Neurologic: moves all extremities and awake Psychiatric: Orientation: alert, oriented to person and cooperative Results & Data Results & Data ([facility]) Vital Signs (Past 12 Hours) Vital Signs Temp Pulse Resp BP Pulse Ox O2 Del Method 07/01/22 10:34 36.4 C L 80 18 98/63 L 97 Room Air 07/01/22 09:14 Room Air 07/01/22 07:36 36.5 C 81 20 108/69 95 Room Air 07/01/22 03:52 36.5 C 80 18 96/66 L 95 Room Air PG Care Time/CCT Total # of Minutes Spent Total Time Spent with Patient: Total time spent is greater than 50% in coordination of care (as documented) at patient's floor/unit and/or counseling patient: Coding Level of Care Code 35212 Subseq Hosp Care Lvl 2 Diagnoses Cirrhosis K74.60 Ascites R18.8 Chronic kidney disease, stage III (moderate) N18.3 Ventricular tachyarrhythmia I47.20 Atrial flutter I48.3 Atrial flutter type: typical Weakness R53.1 Pneumonia J18.9 Diabetes mellitus E11.22; N18.3 Diabetes mellitus type: type 2 Diabetes mellitus alf insulin use: without alf use Diabetes mellitus complication status: with kidney complications Diabetes mellitus complication detail: with chronic kidney disease Chronic kidney disease stage: stage 3 (moderate) CAD (coronary atherosclerotic disease) I25.10 Germ cell cancer C80.1 Pancytopenia due to antineoplastic chemotherapy D61.810; T45.1X5A Pressure ulcer L89.90 (1) Atrial flutter Atrial flutter type: typical Qualified Code(s): I48.3 - Typical atrial flutter (2) Diabetes mellitus Diabetes mellitus type: type 2 Diabetes mellitus alf insulin use: without termite helper use Diabetes mellitus complication status: with kidney complications Diabetes mellitus complication detail: with chronic kidney disease Chronic kidney disease stage: stage 3 (moderate) Qualified Code(s): E11.22 - Type 2 diabetes mellitus with diabetic chronic kidney disease; N18.3 - Chronic kidney disease, stage 3 (moderate)
[2022-07-01] MEDS: MIRTAZAPINE TAB 15 MG TAB PO SCH (20:08)
[2022-07-01] MEDS: TAMSULOSIN HCL 0.4 MG CAP PO SCH (20:08)
[2022-07-01] MEDS: ACETAMINOPHEN 325 MG TAB PO PRN (20:13)
[2022-07-02 05:49] LABS: Hematocrit (blood only) 32.1 % (40.1-51.0); Hemoglobin 10.8 g/dl (14.0-18.0); White Blood Count 4.35 K/ul (4.8-10.8)
[2022-07-02 06:02] LABS: BUN Creatinine Ratio 23.8 (10-20); Calcium 7.9 mg/dl (8.5-10.1); Creatinine Clr Calc Pharmacy 39.7 ml/min; Est GFR (African American) 53.2 ml/min; Est GFR (Non-African American) 45.9 ml/min; Magnesium 1.7 mg/dl (1.7-2.4); Potassium 3.7 mmol/L (3.5-5.1)
[2022-07-02 06:33] LABS: Mean Corpuscular Hemoglobin 31.9 pg (25.0-34.0); Mean Corpuscular Hgb Conc 33.6 g/dL (32.0-36.0); Mean Corpuscular Volume 94.7 fL (80.0-100.0); Mean Platelet Volume 13.5 fL (9.4-12.4); Platelet Count 96 K/uL (130-400); RDW Coefficient of Variation 15.7 % (11.5-14.5); RDW Standard Deviation 54.3 fL (36.4-46.3); Red Blood Count 3.39 M/uL (4.63-6.08)
[2022-07-02] MEDS: SPIRONOLACTONE 25 MG TAB PO SCH (08:46)
[2022-07-02] MEDS: carvediloL 12.5 MG TAB PO SCH ×2 (08:46→20:29)
[2022-07-02] MEDS: FUROSEMIDE 20 MG TAB PO SCH (08:46)
[2022-07-02] MEDS: ASPIRIN 81 MG ECTAB PO SCH (08:47)
[2022-07-02] MEDS: ENOXAPARIN 80 MG/0.8 ML SYR SQ SCH ×2 (08:47→20:37)
[2022-07-02] MEDS: INSULIN ASPART PER UNIT SC SCH ×4 (08:49→21:01)
[2022-07-02] MEDS ORDERED: MECLIZINE 12.5 MG TAB PO PRN (16:06)
--- NOTE | 2022-07-02 16:16 | Hospitalist Progress Note ---
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 The ascites was first noted on March PET scan. Nothing noted prior to that. Discussed whether it could be from carboplatin/etoposide, but this seems highly unlikely per GI and oncology as neither has reports of long-term liver injury. - Ferritin and transferrin saturation both too low for hemochromatosis. - A1-AT and ceruloplasmin pending. - Hepatitis panel pending - Resumed diuretics (Lasix 20 mg daily & spironolactone 25 mg daily) on 06/29 - Cr overall stable, and ascites does seem to be stable over last 2-3 days. - O/p f/u with GI planned (2) Dizziness: Plan: Ongoing dizziness x 3-4 days. Transient. Worse with sitting up/standing, though orthostatics were not positive on 07/01. Sometimes worse with looking to the right, though no nystagmus noted. Does have hx of mastoid surgery with Dr. Lynn. 1) Trial meclizine as low-risk intervention 2) Ask PT to attempt [place]-Hallpike/Robert if able to do so safely. 3) will bring in pacemaker card to see if pacemaker is MR-compatible. If so, could consider MRI of acoustic nerves to ensure no indolent infection/issue. CT head was normal on 06/23, and I do not see advantage of repeating it. (3) Ascites: Plan: Paracentesis performed with 4L ascites fluid removed on 06/19. Paracentesis with 8L removed (followed by albumin) on 06/28. Cytology sent -- without evidence for malignancy. No pain, or evidence for infection or need to cover for SBP. - Diuretics as above - Hope to avoid chronic paracenteses, but will likely need further as his kidney function precludes aggressive diuretics. (4) Chronic kidney disease, stage III (moderate): Plan: Renal function at baseline ~1.3 --> elevated to 1.5 recently. Some concern for hepatorenal syndrome. - Resumed Lasix/spironolactone on 06/29 to hopefully avoid ascites build-up - Monitor BMP daily -> 1.4 today. (5) Ventricular tachyarrhythmia: Plan: Had several ICDs fires on 06/23. Most recent ICD firing AM 10/08, wide-complex tachycardia. Per Dr. Mcnair, he was having some SVT with aberrancy which device was interpreting as VT, but then additionally, some episodes of VT triggered by the SVT. - Stopped amiodarone on 06/29 given some concern for amiodarone-related liver injury - Underwent AV rosa ablation with Dr Mcnair 06/26. Since ablation, no further runs of NSVT or VT. - Consider starting anticoagulation per Dr. Mcnair as his atrial rhythm remains afib. Discussed with pharmacy - Started Lovenox 70 mg SQ BID on 06/30 as best option. DOACs contraindicated with cirrhosis. (6) Atrial flutter: Plan: Patient with history of atrial flutter. None since ablation on 06/26/2022. - Stopped amiodarone as above - Continue carvedilol (7) Weakness: Plan: Progressive weakness over the last several months, likely 2nd to development of ascites and chronic illness/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 from recent chemo this summer and possibly in/out elevated HR/afib/flutter. - PT/OT - Plan for rehab when able. Presently not even able to stand more than 1 minute. (8) Pneumonia: Plan: CT of the chest with small patchy ground-glass and nodular densities within the right lower lobe and right middle lobe which is new from prior study. Favoring pneumonia. - Finished ceftriaxone/azithro, then Augmentin while in the hospital. (9) Diabetes mellitus: Plan: Chronic. Blood sugar = 193 at present. Last hemoglobin A1c on 04/20/2022 = 5.1%. - Sliding scale insulin -> Blood sugars 120 - 190 in last 24 hours. (10) CAD (coronary atherosclerotic disease): Plan: Chronic. Recent ECHo does show slightly reduced EF. Hx cardiomyopathy, possible ischemic basis. 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 Recent PET scan with resolution of cancer. Discussed with Dr Morris, recs for the cytology from pleural fluid to ensure not malignancy --> negative. - Outpatient f/u (12) Pancytopenia due to antineoplastic chemotherapy: Plan: Stable. Also with severe protein calorie malnutrition with recent weight loss/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. - Broadcast Transmitter Operator on consult -- continue supplementation (13) Pressure ulcer: Plan: Right hip, seen at PCP, cx enterococcus sensitive to PCNs. Sleeps on that side. - Also topical silver cream per PCP c/w stage III pressure injury schedule for wound care f/u 06/28 -- can be seen inpatient also has scab to R knee and RLE (scabbed over, nonpainful, no drainage) suspect drainage/scabbing from excessive fluids/ascites --> NONE FURTHER swelling resolved and has remained stable - Augmentin as outlined above now completed Plan DVT ppx: Lovenox for his afib/flutter FULL CODE: In discussion with palliative care. Wants to be full code; just does not want artificial nutrition. Admission and Anticipated Discharge Date Admission Date: June 19, 2022 Subjective Some dizziness off and on today. This is still not changing unfortunately. Stomach has re-accumulated some of the pressure, but he reports it is not s ignificantly worse than last few days. Reports no fevers/chills, chest pain, shortness of breath, abdominal pain, nausea, or vomiting. Physical Exam Constitutional: WD/WN, vitals as above Eyes: EOM intact bilaterally; no conjunctival abnormality ENMT: external ear and nose normal, oropharynx normal Neck: trachea midline, no thyromegaly normal visual inspection Respiratory: normal respiratory effort, lungs clear to auscultation no respiratory distress Cardiovascular: RRR, no murmur, no edema Gastrointestinal (Abdomen): Inspection/Auscultation: + abdomen distended Percussion/Palpation: abdomen soft and + ascites; abdomen nontender, no guarding and abdomen not rigid Musculoskeletal: no cyanosis or clubbing, extremities motor strength 5/5 Skin: no rashes, warm and dry Neurologic: moves all extremities and awake Psychiatric: Orientation: alert, oriented to person and cooperative Results & Data Results & Data ([facility]) Vital Signs (Past 12 Hours) Vital Signs Temp Pulse Resp BP BP Pulse Ox O2 Del Method 07/02/22 16:04 36.6 C 80 86/57 L 100 Room Air 07/02/22 12:00 35.7 C L 80 98/63 L 100 Room Air 07/02/22 08:26 36.8 C 80 13 91/60 L 99 Room Air PG Care Time/CCT Total # of Minutes Spent Total Time Spent with Patient: Total time spent is greater than 50% in coordination of care (as documented) at patient's floor/unit and/or counseling patient: Coding Level of Care Code 46420 Subseq Hosp Care Lvl 3 Diagnoses Cirrhosis K74.60 Dizziness R42 Ascites R18.8 Chronic kidney disease, stage III (moderate) N18.3 Ventricular tachyarrhythmia I47.20 Atrial flutter I48.3 Atrial flutter type: typical Weakness R53.1 Pneumonia J18.9 Diabetes mellitus E11.22; N18.3 Diabetes mellitus type: type 2 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 termite insulin use: without exterminator termite use Diabetes mellitus complication status: with kidney complications Diabetes mellitus complication detail: with chronic kidney disease Chronic kidney disease stage: stage 3 (moderate) CAD (coronary atherosclerotic disease) I25.10 Germ cell cancer C80.1 Pancytopenia due to antineoplastic chemotherapy D61.810; T45.1X5A Pressure ulcer L89.90 (1) Atrial flutter Atrial flutter type: typical Qualified Code(s): I48.3 - Typical atrial flutter (2) Diabetes mellitus Diabetes mellitus type: type 2 Diabetes mellitus fci insulin use: without fci use Diabetes mellitus complication status: with kidney complications Diabetes mellitus complication detail: with chronic kidney disease Chronic kidney disease stage: stage 3 (moderate) Qualified Code(s): E11.22 - Type 2 diabetes mellitus with diabetic chronic kidney disease; N18.3 - Chronic kidney disease, stage 3 (moderate)
[2022-07-02] MEDS: ACETAMINOPHEN 325 MG TAB PO PRN (20:38)
[2022-07-02] MEDS: TAMSULOSIN HCL 0.4 MG CAP PO SCH (20:38)
[2022-07-02] MEDS: MIRTAZAPINE TAB 15 MG TAB PO SCH (20:38)
[2022-07-03 06:16] LABS: Hematocrit (blood only) 31.6 % (40.1-51.0); Hemoglobin 10.8 g/dl (14.0-18.0); White Blood Count 4.37 K/ul (4.8-10.8)
[2022-07-03 06:35] LABS: Mean Corpuscular Hemoglobin 32.7 pg (25.0-34.0); Mean Corpuscular Hgb Conc 34.2 g/dL (32.0-36.0); Mean Corpuscular Volume 95.8 fL (80.0-100.0); Mean Platelet Volume 13.1 fL (9.4-12.4); Platelet Count 92 K/uL (130-400); RDW Coefficient of Variation 16.2 % (11.5-14.5); RDW Standard Deviation 56.7 fL (36.4-46.3)
[2022-07-03 06:39] LABS: Albumin Globulin Ratio 0.9 (0.9-2); Albumin Level 2.6 gm/dl (3.4-5.0); BUN Creatinine Ratio 25.3 (10-20); Bilirubin,Total 0.8 mg/dl (0.2-1.0); Calcium 7.9 mg/dl (8.5-10.1); Creatinine Clr Calc Pharmacy 36.9 ml/min; Est GFR (African American) 48.7 ml/min; Magnesium 1.7 mg/dl (1.7-2.4); Potassium 3.6 mmol/L (3.5-5.1); Total Protein 5.6 gm/dl (6.0-8.3)
[2022-07-03] MEDS: INSULIN ASPART PER UNIT SC SCH ×4 (08:20→21:31)
[2022-07-03] MEDS: SPIRONOLACTONE 25 MG TAB PO SCH ×2 (08:21→21:30)
[2022-07-03] MEDS: ENOXAPARIN 80 MG/0.8 ML SYR SQ SCH ×2 (08:21→21:30)
[2022-07-03] MEDS: FUROSEMIDE 20 MG TAB PO SCH (08:21)
[2022-07-03] MEDS: carvediloL 12.5 MG TAB PO SCH ×2 (08:21→21:29)
[2022-07-03] MEDS: ASPIRIN 81 MG ECTAB PO SCH (08:21)
--- NOTE | 2022-07-03 11:20 | Cardiology Progress Note ---
Date of Service July 03, 2022 Assessment & Plan (1) Ventricular tachyarrhythmia: (2) Atrial fibrillation: (3) Presence of single chamber implantable cardioverter-defibrillator (ICD): (4) Cirrhosis: (5) Dizziness: Plan Patient with atrial and ventricular dysrhythmias with single-chamber ICD who is status post AV rosa ablation 06/26/2022. No recurrence of ventricular dysrhythmia. Amiodarone was discontinued on 06/30/2022 due to concerns of liver toxicity. Underlying rhythm likely remains atrial fibrillation, as per Dr. Marcial would consider anticoagulation. I believe you could use apixaban, since his ChildPugh classification is not C (which would be a contraindication), he is more likely Class A or B, and therefore could be given apixaban. Given his age of 81 and creatinine 1.5, would use reduced dose apixaban (2.5 mg twice daily). Although his ascites may be progressive, systemically still appears mildly hypovolemic or euvolemic, this will need to be closely monitored as he receives his daily diuretic (furosemide 20 mg p.o. daily). Etiology of dizziness seems noncardiac, will seek to determine whether his ICD is MRI compatible. Admission and Anticipated Discharge Date Admission Date: June 19, 2022 Subjective He notes persistent dizziness which may have been positional but not necessarily orthostatic component, also present without motion. He denies chest pain, dyspnea, or subjective palpitations. Telemetry shows consistently paced rhythm, no significant dysrhythmias. Physical Exam Physical Exam: Appears chronically ill but not acutely distressed. BP 94/58 mmHg Pulse 80 bpm and regular. Skin: no ecchymoses or generalized lesions. HEENT: unremarkable. Neck: Jugular venous pulse below the clavicle, no carotid bruits. Lungs: clear. Cardiac: regular rhythm, no murmur or gallop. Abdomen: Protuberant but nontense. . Extremities: no edema, pulses intact. Neurologic: normal affect, nonfocal. Results & Data ([facility]) Vital Signs (Past 12 Hours) Vital Signs Temp Pulse Resp BP Pulse Ox O2 Del Method 07/03/22 08:00 Room Air 07/03/22 08:15 97.9 F 80 17 94/58 L 98 Room Air 07/03/22 02:58 98.2 F 79 18 93/59 L 97 Room Air Laboratory Results Normal electrolytes, BUN 39, creatinine 1.54. PG Care Time/CCT Total # of Minutes Spent Total Time Spent with Patient: Total time spent is greater than 50% in coordination of care (as documented) at patient's floor/unit and/or counseling patient: Coding Level of Care Code 76013 Subseq Hosp Care Lvl 3 Diagnoses Ventricular tachyarrhythmia I47.20 Atrial fibrillation I48.91 Presence of single chamber implantable cardioverter-defibrillator (ICD) Z95.810 Cirrhosis K74.60 Dizziness R42
[2022-07-03] MEDS: HEPARIN 100 UNIT/ML 5ML FLUSH FLUSH PRN (11:30)
--- NOTE | 2022-07-03 12:44 | Hospitalist Progress Note ---
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 The ascites was first noted on March PET scan. Nothing noted prior to that. Discussed whether it could be from carboplatin/etoposide, but this seems highly unlikely per GI and oncology as neither has reports of long-term liver injury. - Ferritin and transferrin saturation both too low for hemochromatosis. - A1-AT and ceruloplasmin pending. - Hepatitis panel pending but unlikely - Resumed diuretics (Lasix 20 mg daily & spironolactone 25 mg daily) on 06/29 - Cr overall stable, and ascites does seem to be stable over last 2-3 days. Spironolactone uptitrated to twice daily dosing today, July 03. - O/p f/u with GI planned (2) Dizziness: Plan: Ongoing dizziness for several days. Transient. Worse with sitting up/standing, though orthostatics were not positive on 07/01. Sometimes worse with looking to the right, though no nystagmus noted. Does have hx of mastoid surgery with Dr. Lynn. 1) Trial meclizine as low-risk intervention 2) Ask PT to attempt [place]-Hallpike/Robert if able to do so safely. 3) will bring in pacemaker card to see if pacemaker is MR-compatible. If so, could consider MRI of acoustic nerves to ensure no indolent infection/issue. CT head was normal on 06/23 (3) Ascites: Plan: Paracentesis performed with 4L ascites fluid removed on 06/19. Paracentesis with 8L removed (followed by albumin) on 06/28. Cytology sent -- without evidence for malignancy. No pain, or evidence for infection or need to cover for SBP. Continue Diuretics as above. He may eventually need chronic intermittent paracenteses (4) Chronic kidney disease, stage III (moderate): Plan: Renal function at baseline ~1.3 --> elevated to 1.5 recently. Resumed Lasix/spironolactone on 06/29 to hopefully avoid ascites build-up. Spironolactone uptitrated to twice daily dosing today, July 03. (5) Ventricular tachyarrhythmia: Plan: Had several ICD firing episodes on 06/23. Most recent ICD firing AM 06/24 due to wide-complex tachycardia. Per Dr. Mcnair, he was having some SVT with aberrancy which device was interpreting as VT, but then additionally, some episodes of VT triggered by the SVT. Stopped amiodarone on 06/29 given some concern for amiodarone-related liver injury. Underwent AV rosa ablation with Dr Mcnair 06/26. Since ablation, no further runs of NSVT or VT. Started Lovenox 70 mg SQ BID on 06/30 as best option for anticoagulation. DOACs contraindicated with cirrhosis. (6) Atrial flutter: Plan: Patient with history of atrial flutter. None since ablation on 06/26/2022. Stopped amiodarone as above. Continue carvedilol (7) Weakness: Plan: Progressive weakness over the last several months, likely 2nd to development of ascites and chronic illness/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 from recent chemo this summer and possibly in/out elevated HR/afib/flutter. Continue PT/OT. Plan for rehab at discharge. (8) Pneumonia: Plan: CT of the chest with small patchy ground-glass and nodular densities within the right lower lobe and right middle lobe which is new from prior study. Favoring pneumonia. Finished IV ceftriaxone/azithro, then Augmentin while in the hospital. (9) Diabetes mellitus: Plan: Chronic. Hemoglobin A1c on 04/20/2022 = 5.1%. ADA diet. Sliding scale insulin. (10) CAD (coronary atherosclerotic disease): Plan: Chronic. Recent ECHo does show slightly reduced EF. Hx cardiomyopathy, possible ischemic basis. 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 Recent PET scan with resolution of cancer. Discussed with Dr Morris, recs for the cytology from pleural fluid to ensure not malignancy --> negative. Outpatient f/u (12) Pancytopenia due to antineoplastic chemotherapy: Plan: Stable. Also with severe protein calorie malnutrition with recent weight loss/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. Chief Scientist on consult -- continue supplementation. Serial labs (13) Pressure ulcer: Plan: Right hip, seen at PCP, cx enterococcus sensitive to PCNs. Sleeps on that side. - Also topical silver cream per PCP c/w stage III pressure injury. Continue wound care. Augmentin as outlined abo ve now completed Plan DVT ppx: Lovenox for his afib/flutter FULL CODE: In discussion with palliative care. Wants to be full code; just does not want artificial nutrition. Disposition: IPR or SNF at discharge Admission and Anticipated Discharge Date Admission Date: June 19, 2022 Subjective Alert and oriented. No complaints. Abdomen is soft. He probably will benefit from up titration of spironolactone to twice daily dosing. Eventual discharge to [facility] pending. Review of Systems Review of Systems: Constitutional-no fever or chills ENT-no blurred vision, no double vision, no epistaxis, no sore throat Respiratory-no cough, no wheezing, no shortness of breath Cardiac-no palpitations, no chest pain, no syncope GI-no nausea, vomiting, diarrhea, melena, hematochezia -no urinary retention, no urinary incontinence, no dysuria, no hematuria Musculoskeletal-no joint pain, no muscle tenderness Skin-no bruising, no rashes, no pruritus Neuro-no isolated weakness, no paresthesia, no weakness Psych-no depression, no anxiety Physical Exam Physical Exam: General-alert and oriented x3, no fevers, no chills HEENT-head atraumatic and normocephalic, pupils equal and reactive to light, extraocular muscles intact Neck-no lymphadenopathy or thyromegaly, trachea midline Chest-clear to auscultation percussion. No rales wheezing or rhonchi Cardiac-regular rate and rhythm, normal S1 and S2, no murmurs Abdomen-normal bowel sounds, nontender, no hepatosplenomegaly Extremities-no cyanosis, clubbing, or edema Neuro-cranial nerves II through XII intact, motor and sensory function within normal limits, strength symmetrical , no focal deficits Psych-normal affect, normal mood Results & Data Results & Data ([facility]) Vital Signs (Past 12 Hours) Vital Signs Temp Pulse Resp BP Pulse Ox O2 Del Method 07/03/22 11:33 36.6 C 80 17 91/60 L 99 Room Air 07/03/22 08:00 Room Air 07/03/22 08:15 36.6 C 80 17 94/58 L 98 Room Air 07/03/22 02:58 36.8 C 79 18 93/59 L 97 Room Air Laboratory Results 07/03/22 05:57 07/03/22 05:57 PG Care Time/CCT Total # of Minutes Spent Total Time Spent with Patient: Total time spent is greater than 50% in coordination of care (as documented) at patient's floor/unit and/or counseling patient: Coding Level of Care Code 74030 Subseq Hosp Care Lvl 3 Diagnoses Cirrhosis K74.60 Dizziness R42 Ascites R18.8 Chronic kidney disease, stage III (moderate) N18.3 Ventricular tachyarrhythmia I47.20 Atrial flutter I48.3 Atrial flutter type: typical Weakness R53.1 Pneumonia J18.9 Diabetes mellitus E11.22; N18.3 Diabetes mellitus type: type 2 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: without [facility] use Diabetes mellitus complication status: with kidney complications Diabetes mellitus complication detail: with chronic kidney disease Chronic kidney disease stage: stage 3 (moderate) CAD (coronary atherosclerotic disease) I25.10 Germ cell cancer C80.1 Pancytopenia due to antineoplastic chemotherapy D61.810; T45.1X5A Pressure ulcer L89.90 (1) Atrial flutter Atrial flutter type: typical Qualified Code(s): I48.3 - Typical atrial flutter (2) Diabetes mellitus Diabetes mellitus type: type 2 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
[2022-07-03 12:57] LABS: Alpha 1 Antitrypsin 169 mg/dL (83-199); Ceruloplasmin 28 mg/dL (18-36); HBSAG NON-REACTIVE (NON-REACTIVE); Hepatitis A Antibody Total NON-REACTIVE (NON-REACTIVE)
[2022-07-03] MEDS: TAMSULOSIN HCL 0.4 MG CAP PO SCH (21:29)
[2022-07-03] MEDS: MIRTAZAPINE TAB 15 MG TAB PO SCH (21:29)
[2022-07-04] MEDS: INSULIN ASPART PER UNIT SC SCH ×2 (07:53→11:54)
[2022-07-04] MEDS: SPIRONOLACTONE 25 MG TAB PO SCH (08:33)
[2022-07-04] MEDS: ASPIRIN 81 MG ECTAB PO SCH (08:34)
[2022-07-04] MEDS: carvediloL 12.5 MG TAB PO SCH (08:34)
[2022-07-04] MEDS: FUROSEMIDE 20 MG TAB PO SCH (08:34)
[2022-07-04] MEDS: ENOXAPARIN 80 MG/0.8 ML SYR SQ SCH (08:34)
[2022-07-04] MEDS: ACETAMINOPHEN 325 MG TAB PO PRN (10:21)
[2022-07-04] MEDS ORDERED: HYDROCODONE/ACETAMOPHEN 5/325MG TAB PO PRN (10:33)
--- NOTE | 2022-07-04 10:49 | Discharge Summary ---
Date of Service July 04, 2022 Principal Diagnosis Cirrhosis with recurrent ascites, dizziness, paroxysmal ventricular tachycardia, suspected right middle lobe/right lower lobe pneumonia Discharge Exam General-alert and oriented x3, no fevers, no chills. Chronically ill-appearing HEENT-head atraumatic and normocephalic, pupils equal and reactive to light, extraocular muscles intact Neck-no lymphadenopathy or thyromegaly, trachea midline Chest-clear to auscultation percussion. No rales wheezing or rhonchi Cardiac-regular rate and rhythm, normal S1 and S2, no murmurs Abdomen-normal bowel sounds, nontender, no hepatosplenomegaly Extremities-no cyanosis, clubbing, or edema Neuro-cranial nerves II through XII intact, motor and sensory function within normal limits, strength symmetrical with generalized weakness, no focal deficits Psych-normal affect, normal mood Discharge Data Allergies Allergy/AdvReac Type Severity Reaction Status Date / Time No Known Drug Allergies Allergy nkda Verified 06/15/22 17:02 Consultations 06/19/22 19:45 ED Decision to Admit Stat 06/23/22 18:04 Consult Cardiology Routine 06/25/22 08:54 Consult Nephrology Routine 06/25/22 19:49 Consult Gastroenterology Routine 06/25/22 20:03 Consult Palliative Care Routine Procedures Performed Operation Date: 06/26/22 15:00 Actual Procedures p AV Node Ablation - Rojelio Mcnair MD s Pacer Interrogation - Rojelio Mcnair MD Ordered Studies 06/19/22 16:42 CT abd pelvis wo con Stat CT chest diagnostic wo con Stat 06/21/22 09:06 US duplex portal hepatic veins Urgent 06/23/22 18:04 CT head/brain wo con Urgent 06/25/22 13:53 US abdomen ltd ascites Routine 06/26/22 11:15 EP Lab Images for PACS ONCE 06/28/22 07:26 US paracentesis abd w/image Routine Hospital Course (1) Cirrhosis: 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 The ascites was first noted on March PET scan. Nothing noted prior to that. Discussed whether it could be from carboplatin/etoposide, but this seems highly unlikely per GI and oncology as neither has reports of long-term liver injury. - Ferritin and transferrin saturation both too low for hemochromatosis. - A1-AT and ceruloplasmin pending. - Hepatitis panel pending but unlikely - Resumed diuretics (Lasix 20 mg daily & spironolactone 25 mg daily) on 06/29 - Cr overall stable, and ascites does seem to be stable over last 2-3 days. Spironolactone uptitrated to twice daily dosing today, July 03. - O/p f/u with GI planned (2) Dizziness: Ongoing dizziness for several days. Transient. Worse with sitting up/standing, though orthostatics were not positive on 07/01. Sometimes worse with looking to the right, though no nystagmus noted. Does have hx of mastoid surgery with Dr. Lynn. 1) treated with meclizine 2) Asked PT to attempt [place]-[facility] if able to do so so (3) Ascites: Paracentesis performed with 4L ascites fluid removed on 06/19. Paracentesis with 8L removed (followed by albumin) on 06/28. Cytology sent -- without evidence for malignancy. No pain, or evidence for infection or need to cover for SBP. Continue Diuretics as above. He may eventually need chronic intermittent paracenteses (4) Chronic kidney disease, stage III (moderate): Renal function now at baseline. Resumed Lasix/spironolactone on 06/29 to hopefully avoid ascites build-up. Spironolactone uptitrated to twice daily dosing on July 03. (5) Ventricular tachyarrhythmia: Had several ICD firing episodes on 06/23. Most recent ICD firing AM 06/24 due to wide-complex tachycardia. Per Dr. Mcnair, he was having some SVT with aberranc y which device was interpreting as VT, but then additionally, some episodes of VT triggered by the SVT. Stopped amiodarone on 06/29 given some concern for amiodarone-related liver injury. Underwent AV rosa ablation with Dr Mcnair 06/26. Since ablation, no further runs of NSVT or VT. Started Lovenox 70 mg SQ BID on 06/30 as best option for anticoagulation. DOACs contraindicated with cirrhosis. (6) Atrial flutter: Patient with history of atrial flutter. None since ablation on 06/26/2022. Stopped amiodarone as above. Continue carvedilol (7) Weakness: Progressive weakness over the last several months, likely 2nd to development of ascites and chronic illness/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 from recent chemo this summer and pos sibly in/out elevated HR/afib/flutter. Continue PT/OT. Plan for rehab at discharge. (8) Pneumonia: CT of the chest with small patchy ground-glass and nodular densities within the right lower lobe and right middle lobe which is new from prior study. Favoring pneumonia. Finished IV ceftriaxone/azithro, then Augmentin while in the hospital. (9) Diabetes mellitus: Chronic. Hemoglobin A1c on 04/20/2022 = 5.1%. ADA diet. Sliding scale insulin. (10) CAD (coronary atherosclerotic disease): Chronic. Recent echo does show slightly reduced EF. Hx cardiomyopathy, possible ischemic basis. 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 Recent PET scan with resolution of cancer. Discussed with randal Watts for the cytology from pleural fluid to ensure not malignancy --> negative. Outpatient f/u (12) Pancytopenia due to antineoplastic chemotherapy: Stable. Also with severe protein calorie malnutrition with recent weight loss/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. [employer] on consult -- continue supplementation. Serial labs (13) Pressure ulcer: Right hip, seen at PCP, cx enterococcus sensitive to PCNs. Sleeps on that side. - Also topical silver cream per PCP c/w stage III pressure injury. Continue wound care. Augmentin as outlined above now completed Plan DVT ppx: Lovenox for his afib/flutter FULL CODE: In discussion with palliative care. Wants to be full code; just does not want artificial nutrition. Disposition: Discharge to [facility] today, July 04 Total Time Total Time Spent Total Time Spent (In Minutes): 35 minutes Discharge Plan Discharge Items Patient Disposition: Transfer Inpatient Rehab Fac Reason For Visit: WEAKNESS Discharge Diagnosis: Weakness, Ascites, Pneumonia Goals: You have been hospitalized for an acute medical problem. During your stay at [facility], we have made an effort to correct the problem that brought you to the hospital while keeping you as comfortable as possible. Medications were used to bring your condition under control and your discharge instructions will include directions for any medications you should take after leaving the hospital. Please make sure you see your Primary Care Provider as part of your follow up plan. Activity: Resume your previous activity Non-emergency contact: Primary Care Provider and Oncologist Call non-emergency contact if: you have any medication questions and your symptoms worsen Follow-up/Referrals: Josafat Kohler, [Primary Care Provider] - Smooth Zuniga, DMD [Physician] - (as needed) Candi Morris MD [Physician] - Diet: Carb Consistent or DM2 and Heart Healthy Addtl Attending Provider Instructions: You have been hospitalized for weakness and found to have large amount of ascites (fluid in your abdominal cavity) They performed a paracentesis to remove the fluid. Analysis was negative for malignancy or infection thankfully. Imaging showed underlying cirrhosis, which could be from alcohol or more likely fatty liver disease, but can also be caused by medications. You had previously been on Lasix, which is continued at 20mg daily. This is continued, however treatment includes spironolactone and this was started and increased to 25mg daily. Ideally they will be able to titrate this up at [facility] to 50mg daily in the next couple of days but I would recommend monitoring of your kidney function and such while on this medication. You were also found to have a possible pneumonia and you were treated with IV antibiotics but given your groin lesion on the right, this area is typical to have anaerobic bacteria and you were restarted on Augmentin. You have an additional 7 doses (3.5 days) of Augmentin and will have another two doses of Azithromycin to complete treatment for pneumonia. You should continue incentive spirometer and inhaler as needed for shortness of breath. Please follow up with PCP in next 7-10 days. Please return to ER with any increased abdominal pain, shortness of breath, chest pain, or for any other symptoms concerning for you. It has been a pleasure being a part of the medical team providing for you while you have been in the hospital. Take care! Pending Studies at Discharge: Yes Studies:: Blood cultures -- no growth to date Stand-Alone Forms: My [facility] [address] Skilled Items Patient informed of condition?: Yes DNR: Yes Discharge Level of Care: Acute rehab Communicable Disease: No Discharge Prognosis: Improving Lines: None Urinary Catheter: No Medications and DC Order Prescriptions: New spironolactone 25 mg Tablet 25 mg PO DAILY Qty: 30 0RF azithromycin 250 mg tablet 250 mg PO DAILY Qty: 2 0RF albuterol sulfate 90 mcg/actuation HFA aerosol inhaler 2 inh inhalation Q6H PRN (Reason: shortness of breath or wheezing) Qty: 6.7 0RF hydrocodone-acetaminophen 5-325 mg tablet 1 tab PO Q6H PRN (Reason: pain) Qty: 10 0RF Continued carvedilol 12.5 mg tablet 12.5 mg PO BID Qty: 180 3RF Rx Instructions: must administer with a meal/food amiodarone 200 mg tablet 200 mg PO BID Qty: 180 3RF (DME) BD AutoShield Duo Pen Needle 30 gauge x 3/16" needle See Rx Instructions .ROUTE .MEDSUPPLY Qty: 100 1RF Rx Instructions: Use once daily to inject Victoza. DX E11.22 tamsulosin 0.4 mg capsule 0.4 mg PO HS Qty: 30 5RF ondansetron 4 mg tablet,disintegrating 4 mg PO Q8H PRN (Reason: nausea and vomiting) Qty: 30 1RF prochlorperazine maleate 10 mg tablet 10 mg PO Q6H PRN (Reason: Nausea) Victoza 2-Ronen 0.6 mg/0.1 mL (18 mg/3 mL) pen injector See Rx Instructions .ROUTE .COMPLEX Qty: 18 3RF Dose Instruction: INJECT 0.2ML (=1.2MG) SUBCUTANEOUSLY EVERY MORNING Rx Instructions: INJECT 0.2ML (=1.2MG) SUBCUTANEOUSLY EVERY MORNING hydrocodone-acetaminophen 5-325 mg tablet 1 tab PO Q4H PRN (Reason: pain) Qty: 20 0RF ondansetron HCl 8 mg tablet 8 mg PO Q8H PRN (Reason: nausea and vomiting) Qty: 14 0RF (DME) BiPap Machine Misc See Rx Instructions .MEDSUPPLY Qty: 1 0RF Rx Instructions: BIPAP 08/25 with heated humidification, tubing, and supplies. JANNIE: 99+ years. mirtazapine 15 mg tablet 15 mg PO DAILY Qty: 30 2RF silver sulfadiazine [Silvadene] 1 % cream 1 applic topical ONCE Qty: 50 1RF Rx Instructions: apply a 1.5 mm thickness lutein-zeaxanthin 25-5 mg capsule 1 cap PO HS cyanocobalamin (vitamin B-12) 5,000 mcg Capsule 5,000 mcg PO QPM Rx Instructions: @ lunch multivitamin tablet 1 tab PO QPM krill oil 500 mg capsule 500 mg PO QPM aspirin 81 mg Tablet,Delayed Release (Dr/Ec) 81 mg PO QAM furosemide [Lasix] 20 mg tablet 20 mg PO QAM chlorhexidine gluconate [Paroex Oral Rinse] 0.12 % mouthwash 15 ml buccal HS Marijuana-Medical Card 1 inh inhalation UD PRN (Reason: Nausea) amoxicillin-pot clavulanate 875-125 mg tablet 1 tab PO Q12H Qty: 7 0RF acetaminophen [Tylenol Extra Strength] 500 mg Tablet 1,000 mg PO Q6H PRN (Reason: Pain) Discontinued amoxicillin-pot clavulanate 875-125 mg tablet 1 tab PO Q12H Qty: 20 0RF Discharge Orders: Discharge Order (Routine); Ordered 07/04/22 Ordered By: Vazquez Recinos Admission Data Admit Date/Time: 06/19/22 20:41 Attending Provider: Vazquez Recinos Admit Provider: Monica Lizarraga Primary Care Provider: Josafat Kohler [facility] ; Monica Lizarraga ; Rojelio Mcnair ; Mary Grace Hurd ; Keena Miranda ; Karen Jackson Other Interventions: Discharge Summary Assessment (RN) Last Done: 06/23/22 15:38 Coding Level of Care Code D/C DAY MANAGEMENT >30 MINS Diagnoses Cirrhosis K74.60 Dizziness R42 Ascites R18.8 Chronic kidney disease, stage III (moderate) N18.3 Ventricular tachyarrhythmia I47.20 Atrial flutter I48.3 Atrial flutter type: typical Weakness R53.1 Pneumonia J18.9 Diabetes mellitus E11.22; N18.3 Diabetes mellitus type: type 2 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
--- NOTE | 2022-07-04 11:37 | Cardiology Progress Note ---
Date of Service July 04, 2022 Assessment & Plan (1) Ventricular tachyarrhythmia: (2) Atrial fibrillation: (3) Presence of single chamber implantable cardioverter-defibrillator (ICD): (4) Cirrhosis: (5) Dizziness: Plan Patient with atrial and ventricular dysrhythmias with single-chamber ICD who is status post AV rosa ablation 06/26/2022. No recurrence of ventricular dysrhythmia. Amiodarone was discontinued on 06/30/2022 due to concerns of liver toxicity. Underlying rhythm likely remains atrial fibrillation, as per Dr. Marcial would consider anticoagulation. I believe you could use apixaban, since his ChildPugh classification is not C (which would be a contraindication), he is more likely Class A or B, and therefore could be given apixaban. Given his age of 81 and creatinine 1.5, would use reduced dose apixaban (2.5 mg twice daily). Although his ascites may be progressive, systemically still appears mildly hypovolemic or euvolemic, this will need to be closely monitored as he receives his daily diuretic (furosemide 20 mg p.o. daily and spironolactone just increased to 25 mg twice daily). He is planned for transfer to rehabilitation facility. Cardiology follow-up with Dr. Marcial. Admission and Anticipated Discharge Date Admission Date: June 19, 2022 Subjective Complains of moderate intensity sharp pain right upper quadrant region, mildly tender to palpation. No chest pain, dyspnea, or palpitations. Telemetry showed paced rhythm at appropriate heart rate. No dysrhythmias. Physical Exam Physical Exam: Appears chronically ill but not acutely distressed. BP 101/65 mmHg Pulse 80 bpm and regular. Skin: no ecchymoses or generalized lesions. HEENT: unremarkable. Neck: Jugular venous pulse below the clavicle, no carotid bruits. Lungs: clear. Cardiac: regular rhythm, no murmur or gallop. Abdomen: Protuberant but non-tense. Extremities: no edema, pulses intact. Neurologic: normal affect, nonfocal. Results & Data ([facility]) Vital Signs (Past 12 Hours) Vital Signs Temp Pulse Pulse Resp BP Pulse Ox O2 Del Method 07/04/22 08:00 80 07/04/22 07:28 97.9 F 80 18 101/65 100 Room Air 07/04/22 01:58 80 07/04/22 01:55 97.9 F 80 16 96/60 L 98 PG Care Time/CCT Total # of Minutes Spent Total Time Spent with Patient: Total time spent is greater than 50% in coordination of care (as documented) at patient's floor/unit and/or counseling patient: Coding Level of Care Code 92431 Subseq Hosp Care Lvl 3 Diagnoses Ventricular tachyarrhythmia I47.20 Atrial fibrillation I48.91 Presence of single chamber implantable cardioverter-defibrillator (ICD) Z95.810 Cirrhosis K74.60 Dizziness R42
== END 2022-07-04 17:13 | DRG 981 ==
LOC: ED 13:19 → SUATTDRO 20:41 → 3W 20:41 → 2S 06-23 16:49
DX: C79.89 Secondary malignant neoplasm of other specified sites; I48.92 Unspecified atrial flutter; I47.20 Ventricular tachycardia, unspecified; E43 Unspecified severe protein-calorie malnutrition; Z95.1 Presence of aortocoronary bypass graft; J18.9 Pneumonia, unspecified organism; T46.2X5A Adverse effect of other antidysrhythmic drugs, initial encounter; L89.213 Pressure ulcer of right hip, stage 3; Z87.891 Personal history of nicotine dependence; Z79.82 Long term (current) use of aspirin; K70.31 Alcoholic cirrhosis of liver with ascites; H90.5 Unspecified sensorineural hearing loss; I25.5 Ischemic cardiomyopathy; I48.91 Unspecified atrial fibrillation; E11.22 Type 2 diabetes mellitus with diabetic chronic kidney disease; R42 Dizziness and giddiness; Z95.810 Presence of automatic (implantable) cardiac defibrillator; C62.92 Malignant neoplasm of left testis, unspecified whether descended or undescended; D61.810 Antineoplastic chemotherapy induced pancytopenia; I25.2 Old myocardial infarction; N18.32 Chronic kidney disease, stage 3b; Y92.009 Unspecified place in unspecified non-institutional (private) residence as the place of occurrence of the external cause; K74.69 Other cirrhosis of liver

== ENCOUNTER 2022-08-14 16:41 | Inpatient (IN) ==
--- NOTE | 2022-08-14 17:27 | ED Triage Note ---
Date of Service August 14, 2022 History of Present Illness This patient was briefly evaluated while in triage. An abbreviated physical exam was performed. This patient is a 81-year-old Male with past medical history of prostate cancer, CKD, DM, who presents to the ED for evaluation of shortness of breath, had an outpatient routine abdominal CT scan today that showed blood clots in his lungs. History of prostate cancer, currently in recovery and not on any active treatments. Possibly already on blood thinners, but patient is unsure. Physical Exam CONSTITUTIONAL: No acute distress. Well appearing. RESPIRATORY: Diminished in bases with some coarse crackles. Nonlabored breathing. Equal expansion bilaterally. CARDIOVASCULAR: Regular rate and rhythm with no murmurs, rubs or gallops. Normal peripheral perfusion. GASTROINTESTINAL: Soft, nontender, distended. NEUROLOGIC: Alert and oriented X 4 with normal affect. Initial orders for labs and / or imaging were placed and patient was placed in the waiting area until a bed is available. Please see further documentation for the full ED course. 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
--- NOTE | 2022-08-14 21:49 | Emergency Department Note ---
Impression & Plan Pulmonary embolism, Ascites, Liver cirrhosis secondary to NLESON, CKD (chronic kidney disease) ED Provider Note Provider: Rory Foote MD DATE OF SERVICE: 08/14/2022 CHIEF COMPLAINT: Shortness of breath, abnormal CT HISTORY OF PRESENT ILLNESS: Patient is a 81-year-old gentleman past medical history of metastatic testicular cancer, CAD with AICD, CKD, BPH, diabetes, and cirrhosis presenting here today referred after abnormal abdominal CT. Patient has been following with oncology and was having an outpatient abdominal CT scan. Has reported some increasing shortness of breath. Had prior abdominal paracentesis as well as prior recent admission in June of this year. No draining since then and after discharge from here went to [facility] for rehab. Patient states his abdomen is swollen up again. Called by radiology after his abdominal CT for referral here due to abnormal finding. Patient with some trace leg and feet swelling but minimal. Denies significant fever. More short of breath particular when going up stairs or with exertion. Has not been eating or drinking that well. Distant history in July 2020 of a subarachnoid hemorrhage after syncope. Patient and report he is not on anticoagulants currently. REVIEW OF SYSTEMS: A total of 10 review of systems was obtained and negative except as stated above in the HPI. PAST MEDICAL HISTORY: As noted above MEDICATIONS: Reviewed home medication list SOCIAL HISTORY: Lives with at home which includes aspirin. PHYSICAL EXAM: GENERAL: alert and oriented in no acute distress on stretcher fatigued in a ppearance and thin Head: normocephalic and atraumatic EYES: No injection, discharge or icterus. NECK: Trachea midline. Supple. ENT: Mucous membranes pink and moist. LUNGS: Airway patent. No retractions. Breath sounds clear with good air entry bilaterally. HEART: Regular rate and rhythm. No chest wall tenderness with right upper chest wall port accessed and bandaged. ABDOMEN: Soft and moderately distended without significant tenderness. SKIN: Acyanotic, warm, dry, without rashes EXTREMITIES: 1+ bilateral lower extremity edema. NEUROLOGICAL: No focal deficits. No aphasia. No facial droop or slurred speech. EK bpm ventricular paced rhythm with PVC. Branch block consistent with pacing. No obvious acute ST segment elevation with diffuse T wave inversions. Compared to previous from June 26 with some PVCs otherwise similar CONTINUOUS CARDIAC MONITORING: was ordered and showed a heart rate of 80s bpm in a ventricularly paced rhythm with occasional PVCs Patient's laboratory studies and imaging reviewed. Differential includes Reactive airway disease, pneumonia, pneumothorax, COPD, CHF, infections, cardiac ischemia, pulmonary embolism, musculoskeletal, gastrointestinal, as well as other pathologies. IMPRESSION/MEDICAL DECISION MAKING: Abdominal CT today showed evidence of bilateral pulmonary embolisms. Patient not significantly hypoxic at rest. Does have significant abdominal ascites which is also likely contributing some to his shortness of breath. Does have unfortunate history of CKD and given poor creatinine will not repeat a formal CTA of the chest at this point. Labs and troponin were sent. Mild hypokalemia. Stable CKD. Mild leukopenia stable. Cirrhotic liver findings are noted. COVID test sent. Distant history of subarachnoid hemorrhage. Believe given the pulmonary embolism found today however do need to cautiously anticoagulate. May require additional abdominal drainage but lower suspicion for SBP or sepsis at this time. Has chronically low blood pressures. In light of the need for possible therapeutic paracentesis as well as his history of prior head bleed leave starting with a heparin drip as appropriate as well as further observation overnight with his multiple comorbidities. Patient agreeable. Hospitalist contacted. In discussion we will start a heparin drip without bolus given the clinical history. DIAGNOSIS: Bilateral pulmonary embolism, shortness of breath, CKD, abdominal ascites DISPOSITION: Hospitalist will evaluate Patient was agreeable with this plan. Critical Care I have personally spent 32 minutes of critical care time in the direct management of this patient. This includes bedside care, interpretation of diagnostic studies, and testing, discussion with consultants, patient, and family members, and other required patient management activities. These 32 minutes is in excess of all separately billable procedures. Past Med/Surg History Medical History Abdominal pain Atrial flutter Presented to the emergency room on August 16, 2020 after syncopal episode; arrhythmia identified on arrival- based on his ICD evaluation, converted with an ICD shock and "seems to have remained in sinus rhythm. His current interrogation demonstrates no further atrial flutter since that shock." No sycnope since that time (Per cardio note 07/18/21) Benign prostatic hyperplasia CAD (coronary artery disease) H/O SC 1988, S/P CABG 3 vessel 1998 Chronic kidney disease, stage 4 (severe) Chronic kidney disease, stage III (moderate) Dehydration Depression HX Diabetes mellitus, type 2 Germ cell cancer Reason for port placement -CHEMO COMPLETED 04/17/2022 H/O acute myocardial infarction 1988 History of bladder stone History of cancer chemotherapy History of kidney stones History of subarachnoid hemorrhage History of ventricular fibrillation s/p ICD LYTTON (hard of hearing) Hyperlipidemia Hyponatremia ICD (implantable cardioverter-defibrillator) in place INITIALLY IMPLANTED 2002 ; GENERATOR CHANGE 2011 AND DECEMBER 02, 2019- MEDTR[employer] JANY Ischemic cardiomyopathy (Unknown) S/p ICD implantation EF 40% per most recent echo 08/2020 Retroperitoneal lymphadenopathy SNHL (sensorineural hearing loss) Testicular cancer with mets to the lymph nodes. Needle biopsy at [facility] dx 11/2021. Surgical History Difficult airway for intubation PT REPORTS WAS TOLD PT WAS DIFFICULT INTUBATION - UNKNOWN FURTHER DETAILS - ? SURGERY WAS TOLD THIS- POSSIBLY BYPASS SURGERY PER -PER PT 30+ YRS AGO?-NO RECENT ISSUES PER PT H/O tympanomastoidectomy RIGHT 11/12/20 [facility] History of adenoidectomy History of cardiac cath PRIOR TO HEART SURGERY, [facility] - NO STENT(S) History of cataract surgery R/L History of colonoscopy History of coronary artery bypass graft 3 VESSELS 1998 History of cystoscopy REMOVAL KIDNEY STONE History of laminectomy History of nasal septoplasty History of tonsillectomy History of tonsillectomy and adenoidectomy History of tympanomastoidectomy (~12/2020) LEFT Hx of oral surgery (06/05/22) Removal of Infected Necrotic Bone Right Posterior Mandible and Infected Bone Screw and Fractured Teeth(Right) - Smooth Zuniga, MYRON Implantation of internal cardiac defibrillator (05/02/12) Port-A-Cath in place (12/22/21) Insertion of Access Port Right Subclavian with Fluoroscopy(Right) - Ivan Peacock DO 12/22/2021 S/P ICD (internal cardiac defibrillator) procedure Placed 2002, generator change 2011 and 2019 Status post chemotherapy Family History Mother Breast cancer Family history of diabetes mellitus Grandmother (Maternal) No problems noted. Grandmother (Paternal) Myocardial infarction Breast cancer Father Myocardial infarction Brother Brain cancer Sister Cancer Denies family history of Ovarian cancer Prostate cancer Colorectal cancer Social History Smoking Status: Never smoker Tobacco Type: Cigarettes packs per day: 2; Cigarettes Per Day: 2.5; Second Hand Exposure: No; Hx Alcohol Use: Yes Hx Substance Use: No Preferred Language: Syriac Communication Ability: Effective Visual Impairment: No Limitations Hearing Ability: Normal Packer Insulation Required: No Beliefs That Will Affect Care: None marital status: Current Living Situation: Spouse current occupational status: retired current occupation: How many Children do You have: 1 Feels Safe at Home: Yes Childhood Exposure to Second-Hand Smoke: No Diet Comment: "go low" Dental Care, Regularly: Yes Physical Activity Frequency: 1-2 Times per Week Seatbelt Use: always Sunscreen Use: No Assistive Devices: Walker Allergies Allergies Allergy/AdvReac Type Severity Reaction Status Date / Time No Known Drug Allergies Allergy nkda Verified 07/24/22 09:01 Home Meds Home Medications Medication Instructions Recorded Confirmed cyanocobalamin (vitamin B-12) 5,000 mcg PO QPM 11/13/18 07/24/22 5,000 mcg capsule multivitamin 1 tab PO QPM 03/04/19 07/24/22 aspirin 81 mg tablet,delayed 81 mg PO QAM 07/05/20 07/24/22 release lutein 25 mg-zeaxanthin 5 mg 1 cap PO HS 11/05/20 07/24/22 capsule krill oil 500 mg capsule 500 mg PO QPM 07/18/21 07/24/22 prochlorperazine maleate 10 mg 10 mg PO Q6H PRN Nausea 12/16/21 07/24/22 tablet Marijuana-Medical Card 1 inh inhalation UD PRN Nausea 05/29/22 07/24/22 Previous Rx's Medication Instructions Recorded carvedilol 12.5 mg tablet 12.5 mg PO BID #180 tabs 08/29/21 pen needle,diabetic dual safty 30 #100 ea 11/07/21 gauge x 3/16" (BD AutoShield Duo Pen Needle) tamsulosin 0.4 mg capsule 0.4 mg PO HS #30 caps 11/08/21 ondansetron 4 mg disintegrating 4 mg PO Q8H PRN nausea and 11/11/21 tablet vomiting #30 tabs liraglutide 0.6 mg/0.1 mL (18 mg/3 See Rx Instructions .Route 04/18/22 mL) subcutaneous pen injector .COMPLEX #18 mL (Victoza 2-Ronen) BiPap Machine #1 ea 05/23/22 ondansetron HCl 8 mg tablet 8 mg PO Q8H PRN nausea and 06/05/22 vomiting #14 tabs mirtazapine 15 mg tablet 15 mg PO DAILY #30 tabs 06/15/22 silver sulfadiazine 1 % topical 1 applic topical ONCE #50 grams 06/15/22 cream (Silvadene) albuterol sulfate 90 mcg/actuation 2 inh inhalation Q6H PRN shortness 06/23/22 aerosol inhaler of breath or wheezing #6.7 grams spironolactone 25 mg tablet 25 mg PO DAILY #30 tabs 06/23/22 enoxaparin 80 mg/0.8 mL 70 mg (0.7 mL) subcut Q12H #8 mL 07/04/22 subcutaneous syringe (Lovenox) hydrocodone 5 mg-acetaminophen 325 1 tab PO Q6 PRN pain #10 tabs 07/04/22 mg tablet hydrocodone 5 mg-acetaminophen 325 1 tab PO Q6H PRN pain #10 tabs 07/04/22 mg tablet hydrocodone 5 mg-acetaminophen 325 1 tab PO Q6H PRN pain #20 tabs 07/04/22 mg tablet meclizine 12.5 mg tablet 12.5 mg PO TID PRN dizziness #14 07/04/22 tabs mirtazapine 15 mg tablet 15 mg PO HS #10 tabs 07/04/22 benzonatate 200 mg capsule 200 mg PO TID PRN cough #30 caps 07/24/22 chlorhexidine gluconate 0.12 % 15 ml buccal HS #473 mL 08/04/22 mouthwash (Paroex Oral Rinse) furosemide 20 mg tablet (Lasix) 40 mg PO QAM #60 tabs 08/04/22 Results & Data (ED) Vital Signs Vital Signs - 24 hr 08/14/22 17:23 08/14/22 17:23 08/14/22 21:02 Temperature 36 C L Temperature Source Temporal Artery Scan Pulse Rate 81 Pulse Rate [Finger] 80 Respiratory Rate 18 20 Respiratory Effort / Characteristics Non-Labored Spontaneous Non-Labored Spontaneous Respiratory Depth Normal Blood Pressure 87/60 L Blood Pressure [Right Arm] 84/64 L Blood Pressure Mean 69 Blood Pressure Mean [Right Arm] 70 Pulse Oximetry 97 100 Oxygen Delivery Method Room Air Room Air Sepsis Recent Fever Within 48 Hours No Sepsis New/Unexplained Change in Mental Status No Sepsis Action Taken by Nursing No Action Required 08/14/22 21:04 Temperature Temperature Source Pulse Rate Pulse Rate [Finger] Respiratory Rate Respiratory Effort / Characteristics Respiratory Depth Blood Pressure Blood Pressure [Right Arm] Blood Pressure Mean Blood Pressure Mean [Right Arm] Pulse Oximetry 100 Oxygen Delivery Method Room Air Sepsis Recent Fever Within 48 Hours Sepsis New/Unexplained Change in Mental Status Sepsis Action Taken by Nursing Laboratory Data Result diagrams: 08/14/22 21:15 08/14/22 21:15 Lab Results 08/14/22 08/14/22 08/14/22 Range/Units 21:15 21:15 21:15 WBC 4.67 L (4.8-10.8) K/ul RBC 3.44 L (4.63-6.08) M/uL Hgb 11.2 L (14.0-18.0) g/dl Hct 34.1 L (40.1-51.0) % MCV 99.1 (80.0-100.0) fL MCH 32.6 (25.0-34.0) pg MCHC 32.8 (32.0-36.0) g/dL RDW Std Deviation 58.5 H (36.4-46.3) fL RDW Coeff of David 16.2 H (11.5-14.5) % Plt Count 105 L (130-400) K/uL MPV 13.6 H (9.4-12.4) fL PT 11.9 (9.0-12.0) Seconds INR 1.1 (0.9-1.1) APTT 30.6 (21.0-31.0) Seconds PTT Ratio 1.1 Sodium 139 (136-145) mmol/L Potassium 3.0 L (3.5-5.1) mmol/L Chloride 110 H (98-107) mmol/L Carbon Dioxide 20 L (21-32) mmol/L Anion Gap 9 (3-11) BUN 39 H (6-23) mg/dl Creatinine 1.69 H (0.6-1.4) mg/dl Est Cr Clr Drug Dosing Not Reportable Est GFR ( Amer) 43.5 ml/min Est GFR (Non-Af Amer) 37.5 ml/min BUN/Creatinine Ratio 23.1 H (10-20) Glucose 103 H (70-99(Fasting)) mg/dl Calcium 8.2 L (8.5-10.1) mg/dl Magnesium 2.3 (1.7-2.4) mg/dl Total Bilirubin 0.9 (0.2-1.0) mg/dl AST 21 (13-39) U/L ALT 13 (7-52) U/L Alkaline Phosphatase 86 (34-104) U/L Troponin I High Sens 10.1 D (0-20) pg/ml Total Protein 6.8 (6.0-8.3) gm/dl Albumin 2.8 L (3.4-5.0) gm/dl Globulin 4.0 (2.5-4.0) gm/dl Albumin/Globulin Ratio 0.7 L (0.9-2) Discharge Plan Visit Data Chief Complaint: Shortness of Breath/Dyspnea Stated Complaint: REF FROM ONCOLOGY, BLOOD CLOT IN LUNGS FROM CT ED Provider: Rory Foote Discharge Problem: Pulmonary embolism, Ascites, Liver cirrhosis secondary to NELSON, CKD (chronic kidney disease) Patient Disposition: Being Evaluated by Hospitalist Forms Stand Alone Forms: My [facility] Prescriptions Prescriptions: No Action carvedilol 12.5 mg tablet 12.5 mg PO BID Qty: 180 3RF Rx Instructions: must administer with a meal/food (DME) BD AutoShield Duo Pen Needle 30 gauge x 3/16" needle See Rx Instructions .ROUTE .MEDSUPPLY Qty: 100 1RF Rx Instructions: Use once daily to inject Victoza. DX E11.22 tamsulosin 0.4 mg capsule 0.4 mg PO HS Qty: 30 5RF ondansetron 4 mg tablet,disintegrating 4 mg PO Q8H PRN (Reason: nausea and vomiting) Qty: 30 1RF prochlorperazine maleate 10 mg tablet 10 mg PO Q6H PRN (Reason: Nausea) Victoza 2-Ronen 0.6 mg/0.1 mL (18 mg/3 mL) pen injector See Rx Instructions .ROUTE .COMPLEX Qty: 18 3RF Dose Instruction: INJECT 0.2ML (=1.2MG) SUBCUTANEOUSLY EVERY MORNING Rx Instructions: INJECT 0.2ML (=1.2MG) SUBCUTANEOUSLY EVERY MORNING ondansetron HCl 8 mg tablet 8 mg PO Q8H PRN (Reason: nausea and vomiting) Qty: 14 0RF chlorhexidine gluconate [Paroex Oral Rinse] 0.12 % mouthwash 15 ml buccal HS Qty: 473 0RF furosemide [Lasix] 20 mg tablet 40 mg PO QAM Qty: 60 0RF (DME) BiPap Machine Misc See Rx Instructions .MEDSUPPLY Qty: 1 0RF Rx Instructions: BIPAP 08/25 with heated humidification, tubing, and supplies. JANNIE: 99+ years. mirtazapine 15 mg tablet 15 mg PO DAILY Qty: 30 2RF silver sulfadiazine [Silvadene] 1 % cream 1 applic topical ONCE Qty: 50 1RF Rx Instructions: apply a 1.5 mm thickness benzonatate 200 mg capsule 200 mg PO TID PRN (Reason: cough) Qty: 30 0RF lutein-zeaxanthin 25-5 mg capsule 1 cap PO HS cyanocobalamin (vitamin B-12) 5,000 mcg Capsule 5,000 mcg PO QPM Rx Instructions: @ lunch multivitamin tablet 1 tab PO QPM krill oil 500 mg capsule 500 mg PO QPM aspirin 81 mg Tablet,Delayed Release (Dr/Ec) 81 mg PO QAM Marijuana-Medical Card 1 inh inhalation UD PRN (Reason: Nausea) spironolactone 25 mg Tablet 25 mg PO DAILY Qty: 30 0RF albuterol sulfate 90 mcg/actuation HFA aerosol inhaler 2 inh inhalation Q6H PRN (Reason: shortness of breath or wheezing) Qty: 6.7 0RF hydrocodone-acetaminophen 5-325 mg tablet 1 tab PO Q6H PRN (Reason: pain) Qty: 10 0RF enoxaparin [Lovenox] 80 mg/0.8 mL Syringe 70 mg subcut Q12H Qty: 8 0RF hydrocodone-acetaminophen 5-325 mg Tablet 1 tab PO Q6 PRN (Reason: pain) Qty: 10 0RF mirtazapine 15 mg Tablet 15 mg PO HS Qty: 10 0RF meclizine 12.5 mg Tablet 12.5 mg PO TID PRN (Reason: dizziness) Qty: 14 0RF hydrocodone-acetaminophen 5-325 mg tablet 1 tab PO Q6H PRN (Reason: pain) Qty: 20 0RF Referrals Referrals: Josafat Kohler DO [Primary Care Provider] -
[2022-08-14 21:57] LABS: Hematocrit (blood only) 34.1 % (40.1-51.0); Hemoglobin 11.2 g/dl (14.0-18.0); White Blood Count 4.67 K/ul (4.8-10.8)
[2022-08-14 22:01] LABS: INR 1.1 (0.9-1.1); Partial Thromboplastin Ratio 1.1; Partial Thromboplastin Time 30.6 Seconds (21.0-31.0); Prothrombin Time 11.9 Seconds (9.0-12.0)
[2022-08-14 22:07] LABS: Alanine Aminotransferase 13 U/L (7-52); Albumin Globulin Ratio 0.7 (0.9-2); Albumin Level 2.8 gm/dl (3.4-5.0); Alkaline Phosphatase 86 U/L (34-104); Anion Gap 9 (3-11); Aspartate Aminotransferase 21 U/L (13-39); BUN Creatinine Ratio 23.1 (10-20); Bilirubin,Total 0.9 mg/dl (0.2-1.0); Blood Urea Nitrogen 39 mg/dl (6-23); Calcium 8.2 mg/dl (8.5-10.1); Carbon Dioxide 20 mmol/L (21-32); Chloride 110 mmol/L (98-107); Est GFR (African American) 43.5 ml/min; Est GFR (Non-African American) 37.5 ml/min; Glucose 103 mg/dl (70-99(Fasting)); Magnesium 2.3 mg/dl (1.7-2.4); Sodium 139 mmol/L (136-145); Total Protein 6.8 gm/dl (6.0-8.3)
[2022-08-14 22:12] LABS: Troponin I High Sensitivity 10.1 pg/ml (0-20)
[2022-08-14 22:18] LABS: Mean Corpuscular Hemoglobin 32.6 pg (25.0-34.0); Mean Corpuscular Hgb Conc 32.8 g/dL (32.0-36.0); Mean Corpuscular Volume 99.1 fL (80.0-100.0); Mean Platelet Volume 13.6 fL (9.4-12.4); Platelet Count 105 K/uL (130-400); RDW Coefficient of Variation 16.2 % (11.5-14.5); RDW Standard Deviation 58.5 fL (36.4-46.3); Red Blood Count 3.44 M/uL (4.63-6.08)
[2022-08-14] MEDS ORDERED: Heparin IV Adult Wt-Based Standard *NO* Bolus Protocol IV ONE (22:23)
[2022-08-14] MEDS ORDERED: HEPARIN SODIUM/DEXTROSE 25,000 UNITS/500 ML BAG IV SCH (22:45)
--- NOTE | 2022-08-14 22:47 | History & Physical Report ---
Date of Service August 14, 2022 Assessment & Plan (1) Bilateral pulmonary embolism: Plan: Patient is an 81-year-old male with a history of metastatic testicular cancer presenting with abnormal CT scan findings on routine check for metastases consistent with bilateral pulmonary emboli. Patient additionally is having worsening ascites. Patient has been started on heparin drip and is currently hemodynamically stable. -Likely secondary to metastatic disease -Started on heparin drip without bolus due to concern of bleeding with history of SAH in 2019. -Ordered dedicated pulmonary embolism chest CT angio, pending -Patient will likely require oral anticoagulation long-term -Consider goals of care discussion as well as involving palliative due to frequent hospitalizations (2) Ascites: Plan: -Ordered therapeutic paracentesis with cytology with albumin replacement protocol ordered -Nursing after care ordered as well -Lasix on the hold in the setting of hypokalemia (see below) -Continue spironolactone (3) Pacemaker: Plan: -In place secondary to nonsustained V. tach since 2002 and has been replaced twice -Stable, no further intervention (4) Diabetes mellitus, type 2: Plan: -A1c pending -On daily Victoza injections, will hold for now, consider discontinuing given patient's poor p.o. intake -Last A1c in April was 5.1 -We will hold off sliding scale insulin for now given poor p.o. intake and A1c being 5.1 just 4 months ago. Adjust if blood sugars become elevated (5) Severe protein-calorie malnutrition: Plan: -Unfortunately due to malignancy, patient has had poor p.o. intake for the past few months and has lost a significant amount of weight. 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 Diet: Low sodium/ carb consistent Dispo: Admit to Med surg w/ tele DVT Proph: heparin drip Code Status: DNR/ DNI History of Present Illness Chief Complaint: CT abnormality Primary Care Provider: Josafat Kohler DO Patient is an 81-year-old male with past medical history of metastatic testicular cancer, CAD with AICD, CKD 4, BPH, diabetes, and cirrhosis secondary to NELSON presenting to the hospital for having a CT scan of the abdomen ordered by his oncologist in the outpatient setting for abdominal swelling which inadvertently had shown bilateral pulmonary emboli. Does report that he has been short of breath especially with exertion and going up stairs. Otherwise patient has been participating in physical therapy due to prolonged hospital stays causing him to become weak. Reports substantial weight loss, poor appetite and decreased oral intake. Patient lives at home with his and has difficulty with ambulation and requires the use of a walker for the majority of his activity. ED course: Patient was brought to the emergency department by private vehicle and was evaluated by her ED provider who ordered blood work and reviewed imaging that was taken earlier today. Blood work included CBC which was significant for mild anemia. Otherwise Heparin was started without bolus due to the concern for previous SAH in 2019. Allergies Allergy/AdvReac Type Severity Reaction Status Date / Time No Known Drug Allergies Allergy nkda Verified 07/24/22 09:01 Home Medications Medication Instructions Recorded Confirmed Type cyanocobalamin (vitamin B-12) 5,000 mcg PO QPM 11/13/18 07/24/22 History 5,000 mcg capsule multivitamin 1 tab PO QPM 03/04/19 07/24/22 History aspirin 81 mg tablet,delayed 81 mg PO QAM 07/05/20 07/24/22 History release lutein 25 mg-zeaxanthin 5 mg 1 cap PO HS 11/05/20 07/24/22 History capsule krill oil 500 mg capsule 500 mg PO QPM 07/18/21 07/24/22 History carvedilol 12.5 mg tablet 12.5 mg PO BID #180 tabs 08/29/21 07/24/22 Rx pen needle,diabetic dual safty 30 #100 ea 11/07/21 07/24/22 Rx gauge x 3/16" (BD AutoShield Duo Pen Needle) tamsulosin 0.4 mg capsule 0.4 mg PO HS #30 caps 11/08/21 07/24/22 Rx ondansetron 4 mg disintegrating 4 mg PO Q8H PRN nausea and 11/11/21 07/24/22 Rx tablet vomiting #30 tabs prochlorperazine maleate 10 mg 10 mg PO Q6H PRN Nausea 12/16/21 07/24/22 History tablet liraglutide 0.6 mg/0.1 mL (18 mg/3 See Rx Instructions .Route 04/18/22 07/24/22 Rx mL) subcutaneous pen injector .COMPLEX #18 mL (Victoza 2-Ronen) BiPap Machine #1 ea 05/23/22 07/24/22 Rx Marijuana-Medical Card 1 inh inhalation UD PRN Nausea 05/29/22 07/24/22 History ondansetron HCl 8 mg tablet 8 mg PO Q8H PRN nausea and 06/05/22 07/24/22 Rx vomiting #14 tabs mirtazapine 15 mg tablet 15 mg PO DAILY #30 tabs 06/15/22 07/24/22 Rx silver sulfadiazine 1 % topical 1 applic topical ONCE #50 grams 06/15/22 07/24/22 Rx cream (Silvadene) albuterol sulfate 90 mcg/actuation 2 inh inhalation Q6H PRN shortness 06/23/22 07/24/22 Rx aerosol inhaler of breath or wheezing #6.7 grams spironolactone 25 mg tablet 25 mg PO DAILY #30 tabs 06/23/22 07/24/22 Rx enoxaparin 80 mg/0.8 mL 70 mg (0.7 mL) subcut Q12H #8 mL 07/04/22 07/24/22 Rx subcutaneous syringe (Lovenox) hydrocodone 5 mg-acetaminophen 325 1 tab PO Q6 PRN pain #10 tabs 07/04/22 07/20/22 Rx mg tablet hydrocodone 5 mg-acetaminophen 325 1 tab PO Q6H PRN pain #10 tabs 07/04/22 07/24/22 Rx mg tablet hydrocodone 5 mg-acetaminophen 325 1 tab PO Q6H PRN pain #20 tabs 07/04/22 07/20/22 Rx mg tablet meclizine 12.5 mg tablet 12.5 mg PO TID PRN dizziness #14 07/04/22 07/24/22 Rx tabs mirtazapine 15 mg tablet 15 mg PO HS #10 tabs 07/04/22 07/24/22 Rx benzonatate 200 mg capsule 200 mg PO TID PRN cough #30 caps 07/24/22 07/24/22 Rx chlorhexidine gluconate 0.12 % 15 ml buccal HS #473 mL 08/04/22 Rx mouthwash (Paroex Oral Rinse) furosemide 20 mg tablet (Lasix) 40 mg PO QAM #60 tabs 08/04/22 Rx Past Med/Surg History Medical History (Updated 08/14/22 @ 23:53 by Daniel Lawrence DO) Abdominal pain Atrial fibrillation Atrial flutter Presented to the emergency room on August 16, 2020 after syncopal episode; arrhythmia identified on arrival- based on his ICD evaluation, converted with an ICD shock and "seems to have remained in sinus rhythm. 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 -CHEMO COMPLETED 04/17/2022 H/O acute myocardial infarction 1988 History of bladder stone History of cancer chemotherapy History of kidney stones History of subarachnoid hemorrhage History of ventricular fibrillation s/p ICD [place] (hard of hearing) Hyperlipidemia Hyponatremia ICD (implantable cardioverter-defibrillator) in place INITIALLY IMPLANTED 2002 ; GENERATOR CHANGE 2011 AND DECEMBER 02, 2019- [employer] Ischemic cardiomyopathy (Unknown) S/p ICD implantation EF 40% per most recent echo 08/2020 Pneumonia Retroperitoneal lymphadenopathy SNHL (sensorineural hearing loss) Testicular cancer with mets to the lymph nodes. Needle biopsy at [facility] dx 11/2021. Surgical History (Updated 07/06/22 @ 00:08 by Tk Rodríguez) Difficult airway for intubation PT REPORTS WAS TOLD PT WAS DIFFICULT INTUBATION - UNKNOWN FURTHER DETAILS - ? SURGERY WAS TOLD THIS- POSSIBLY BYPASS SURGERY PER -PER PT 30+ YRS AGO?-NO RECENT ISSUES PER PT H/O tympanomastoidectomy RIGHT 11/12/20 [facility] History of adenoidectomy History of cardiac cath PRIOR TO HEART SURGERY, [facility] - NO STENT(S) History of cataract surgery R/L History of colonoscopy History of coronary artery bypass graft 3 VESSELS 1998 History of cystoscopy REMOVAL KIDNEY STONE History of laminectomy History of nasal septoplasty History of tonsillectomy History of tonsillectomy and adenoidectomy History of tympanomastoidectomy (~12/2020) LEFT Hx of oral surgery (06/05/22) Removal of Infected Necrotic Bone Right Posterior Mandible and Infected Bone Screw and Fractured Teeth(Right) - Smooth Zuniga, DMD Implantation of internal cardiac defibrillator (05/02/12) Port-A-Cath in place (12/22/21) Insertion of Access Port Right Subclavian with Fluoroscopy(Right) - Ivan Peacock DO 12/22/2021 Presence of single chamber implantable cardioverter-defibrillator (ICD) S/P CABG (coronary artery bypass graft) S/P ICD (internal cardiac defibrillator) procedure Placed 2002, generator change 2011 and 2019 Status post chemotherapy Family History Mother Breast cancer Family history of diabetes mellitus Grandmother (Maternal) No problems noted. Grandmother (Paternal) Myocardial infarction Breast cancer Father Myocardial infarction Brother Brain cancer Sister Cancer Denies family history of Ovarian cancer Prostate cancer Colorectal cancer Social History Smoking Status: Never smoker Tobacco Type: Cigarettes packs per day: 2; Cigarettes Per Day: 2.5; Second Hand Exposure: No; Hx Alcohol Use: Yes Hx Substance Use: No Preferred Language: Bengali Communication Ability: Effective Visual Impairment: No Limitations Hearing Ability: Normal Loan Officer Assistant Required: No Beliefs That Will Affect Care: None marital status: Current Living Situation: Spouse current occupational status: retired current occupation: How many Children do You have: 1 Feels Safe at Home: Yes Childhood Exposure to Second-Hand Smoke: No Diet Comment: "go low" Dental Care, Regularly: Yes Physical Activity Frequency: 1-2 Times per Week Seatbelt Use: always Sunscreen Use: No Assistive Devices: Walker Review of Systems Review of Systems: All systems reviewed & are unremarkable except as noted in HPI & below Physical Exam Constitutional: + cachectic, cooperative and comfortable; no acute distress Eyes: + anicteric sclerae Neck: trachea midline, no thyromegaly Respiratory: normal respiratory effort, lungs clear to auscultation Cardiovascular: Rate/Rhythm: regular rate and regular rhythm Heart Sounds: + murmur (2/6 systolic) Chest (Breasts): Chest: + pacemaker (L chest) and + vascular access device or port (R chest) Gastrointestinal (Abdomen): Percussion/Palpation: abdomen soft and + ascites; abdomen nontender Musculoskeletal: Head/Neck/Chest: normocephalic and head atraumatic Skin: no rashes, warm and dry Neurologic: CN's II-XI intact bilaterally and moves all extremities Psychiatric: A+Ox3, euthymic affect Results & Data Results & Data ([facility]) Vital Signs (Past 12 Hours) Vital Signs Temp Pulse Pulse Resp BP BP Pulse Ox 08/14/22 21:04 100 08/14/22 21:02 80 20 84/64 L 100 08/14/22 17:23 36 C L 81 18 87/60 L 97 08/14/22 17:23 O2 Del Method 08/14/22 21:04 Room Air 08/14/22 21:02 08/14/22 17:23 Room Air 08/14/22 17:23 Room Air Laboratory Results Laboratory Results WBC 4.67 K/ul (4.8-10.8) L 08/14/22 21:15 RBC 3.44 M/uL (4.63-6.08) L 08/14/22 21:15 Hgb 11.2 g/dl (14.0-18.0) L 08/14/22 21:15 Hct 34.1 % (40.1-51.0) L 08/14/22 21:15 MCV 99.1 fL (80.0-100.0) 08/14/22 21:15 MCH 32.6 pg (25.0-34.0) 08/14/22 21:15 MCHC 32.8 g/dL (32.0-36.0) 08/14/22 21:15 RDW Std Deviation 58.5 fL (36.4-46.3) H 08/14/22 21:15 RDW Coeff of David 16.2 % (11.5-14.5) H 08/14/22 21:15 Plt Count 105 K/uL (130-400) L 08/14/22 21:15 MPV 13.6 fL (9.4-12.4) H 08/14/22 21:15 Immature Gran % (Auto) 0.2 % 08/14/22 21:15 Neut % (Auto) 55.1 % 08/14/22 21:15 Lymph % (Auto) 26.3 % 08/14/22 21:15 Wayne % (Auto) 16.7 % 08/14/22 21:15 Eos % (Auto) 1.3 % 08/14/22 21:15 Baso % (Auto) 0.4 % 08/14/22 21:15 Neut # (Auto) 2.57 K/uL (1.4-6.5) 08/14/22 21:15 Lymph # (Auto) 1.23 K/uL (1.2-3.4) 08/14/22 21:15 Wayne # (Auto) 0.78 K/uL (0.24-0.82) 08/14/22 21:15 Eos # (Auto) 0.06 K/uL (0-0.50) 08/14/22 21:15 Baso # (Auto) 0.02 K/uL (0-0.2) 08/14/22 21:15 Immature Gran # (Auto) 0.01 K/uL (0.00-0.02) 08/14/22 21:15 PT 11.9 Seconds (9.0-12.0) 08/14/22 21:15 INR 1.1 (0.9-1.1) 08/14/22 21:15 APTT 30.6 Seconds (21.0-31.0) 08/14/22 21:15 PTT Ratio 1.1 08/14/22 21:15 Sodium 139 mmol/L (136-145) 08/14/22 21:15 Potassium 3.0 mmol/L (3.5-5.1) L 08/14/22 21:15 Chloride 110 mmol/L (98-107) H 08/14/22 21:15 Carbon Dioxide 20 mmol/L (21-32) L 08/14/22 21:15 Anion Gap 9 (3-11) 08/14/22 21:15 BUN 39 mg/dl (6-23) H 08/14/22 21:15 Creatinine 1.69 mg/dl (0.6-1.4) H 08/14/22 21:15 Est Cr Clr Drug Dosing Not Reportable 08/14/22 21:15 Est GFR ( Amer) 43.5 ml/min 08/14/22 21:15 Est GFR (Non-Af Amer) 37.5 ml/min 08/14/22 21:15 BUN/Creatinine Ratio 23.1 (10-20) H 08/14/22 21:15 Glucose 103 mg/dl (70-99(Fasting)) H 08/14/22 21:15 Calcium 8.2 mg/dl (8.5-10.1) L 08/14/22 21:15 Ionized Calcium 1.13 mmol/L (1.12-1.32) 08/15/22 00:00 Magnesium 2.3 mg/dl (1.7-2.4) 08/14/22 21:15 Total Bilirubin 0.9 mg/dl (0.2-1.0) 08/14/22 21:15 AST 21 U/L (13-39) 08/14/22 21:15 ALT 13 U/L (7-52) 08/14/22 21:15 Alkaline Phosphatase 86 U/L (34-104) 08/14/22 21:15 Troponin I High Sens 10.1 pg/ml (0-20) D 08/14/22 21:15 Total Protein 6.8 gm/dl (6.0-8.3) 08/14/22 21:15 Albumin 2.8 gm/dl (3.4-5.0) L 08/14/22 21:15 Globulin 4.0 gm/dl (2.5-4.0) 08/14/22 21:15 Albumin/Globulin Ratio 0.7 (0.9-2) L 08/14/22 21:15 SARS-CoV-2, RNA, NAAT NEGATIVE (NEGATIVE) 08/14/22 21:55 Supervising Physician Co-Signing Physician Notes Patient seen and examined, chart reviewed, case discussed with Dr. Lawrence and I agree with the assessment and plan as above. In brief, patient is an 81yo male with history of metastatic testicular cancer presenting with ascites and bilateral PE. On exam he is cachectic, chronically ill in appearance Skin - +pallor, bruising located on forearms HEENT - MMM, Neck supple Heart - +S1/S2, regular, no m/r/g Lungs - CTA Abd - +ascites with fluid wave, nontender to palpation Ext - +pitting edema Labs and images reviewed Assessment/Plan: PE - patient HD stable, adequate oxygenation on room air. Heparin gtt started in ER, will continue Ascites - therapeutic paracentesis ordered Remainder as above
[2022-08-14 22:49] LABS: Basophils # (auto) 0.02 K/uL (0-0.2); Basophils % (auto) 0.4 %; Eosinophils # (auto) 0.06 K/uL (0-0.50); Eosinophils % (auto) 1.3 %; Immature Granulocytes # (auto) 0.01 K/uL (0.00-0.02); Immature Granulocytes % (auto) 0.2 %; Lymphocytes # (auto) 1.23 K/uL (1.2-3.4); Lymphocytes % (auto) 26.3 %; Monocytes # (auto) 0.78 K/uL (0.24-0.82); Monocytes % (auto) 16.7 %; Neutrophils # (auto) 2.57 K/uL (1.4-6.5); Neutrophils % (auto) 55.1 %
[2022-08-14] MEDS ORDERED: POTASSIUM CHLORIDE CRTAB 20 MEQ TABCR PO STA (23:21)
[2022-08-14] MEDS ORDERED: OPTIRAY 320 500ml IV ONE (23:33)
[2022-08-15] MEDS ORDERED: ALBUTEROL HFA 8 GM INHALER INH PRN (01:55)
[2022-08-15] MEDS ORDERED: ACETAMINOPHEN 325 MG TAB PO PRN (01:55)
[2022-08-15] MEDS ORDERED: ALBUMIN 25% 12.5 GM/50 ML VIAL IV PRN (01:55)
[2022-08-15] MEDS ORDERED: ONDANSETRON 4 MG OD TAB PO PRN (01:55)
[2022-08-15] MEDS ORDERED: DEXTROSE 50% 50 ML SYRINGE IV PRN (01:55)
[2022-08-15] MEDS ORDERED: CARBOHYDRATES FOR HYPOGLYCEMIA PO PRN (01:55)
[2022-08-15] MEDS ORDERED: GLUCOSE 40% GEL 15 GM TUBE PO PRN (01:55)
[2022-08-15] MEDS ORDERED: HYDROCODONE/ACETAMOPHEN 5/325MG TAB PO PRN (01:55)
[2022-08-15] MEDS ORDERED: SODIUM CHLORIDE 0.9% 1000ML 1,000 ML IV SCH (01:55)
[2022-08-15] MEDS ORDERED: POLYETHYLENE (MIRALAX) 17 GM PACK PO PRN (01:55)
[2022-08-15] MEDS ORDERED: GLUCOSE 10 TAB/TUBE PO PRN (01:55)
[2022-08-15] MEDS ORDERED: GLUCAGON FOR INJ 1 MG VIAL SQ PRN (01:55)
--- NOTE | 2022-08-15 04:14 | Billing Data ---
Date of Service August 14, 2022 Coding Level of Care Code 08724 Initial Inpt Care Lvl 3
[2022-08-15 06:43] LABS: Hematocrit (blood only) 32.8 % (40.1-51.0); Hemoglobin 10.9 g/dl (14.0-18.0); White Blood Count 3.88 K/ul (4.8-10.8)
[2022-08-15 07:04] LABS: Albumin Globulin Ratio 0.7 (0.9-2); Albumin Level 2.6 gm/dl (3.4-5.0); BUN Creatinine Ratio 21.7 (10-20); Bilirubin,Total 0.9 mg/dl (0.2-1.0); Calcium 7.7 mg/dl (8.5-10.1); Creatinine Clr Calc Pharmacy 35.2 ml/min; Est GFR (African American) 41.7 ml/min; Globulin 3.8 gm/dl (2.5-4.0); Magnesium 2.3 mg/dl (1.7-2.4); Mean Corpuscular Hemoglobin 32.4 pg (25.0-34.0); Mean Corpuscular Hgb Conc 33.2 g/dL (32.0-36.0); Mean Corpuscular Volume 97.6 fL (80.0-100.0); Mean Platelet Volume 13.1 fL (9.4-12.4); Phosphorus 4.1 mg/dl (2.5-4.9); Platelet Count 90 K/uL (130-400); Potassium 3.1 mmol/L (3.5-5.1); RDW Standard Deviation 56.8 fL (36.4-46.3); Red Blood Count 3.36 M/uL (4.63-6.08); Total Protein 6.4 gm/dl (6.0-8.3)
[2022-08-15 07:19] LABS: Partial Thromboplastin Ratio > 5.1
[2022-08-15 07:26] LABS: Partial Thromboplastin Time > 139.0 Seconds (21.0-31.0)
[2022-08-15 08:20] LABS: Acanthocytes 1+; Basophils # (auto) 0.02 K/uL (0-0.2); Basophils % (auto) 0.5 %; Eosinophils # (auto) 0.06 K/uL (0-0.50); Eosinophils % (auto) 1.5 %; Immature Granulocytes # (auto) 0.01 K/uL (0.00-0.02); Immature Granulocytes % (auto) 0.3 %; Lymphocytes % (auto) 28.4 %; Monocytes # (auto) 0.66 K/uL (0.24-0.82); Neutrophils # (auto) 2.03 K/uL (1.4-6.5); Neutrophils % (auto) 52.3 %; Ovalocytes 1+; Polychromasia 1+
[2022-08-15] MEDS: carvediloL 12.5 MG TAB PO SCH ×2 (08:44→21:02)
[2022-08-15] MEDS: ASPIRIN 81 MG ECTAB PO SCH (08:45)
[2022-08-15] MEDS: SPIRONOLACTONE 25 MG TAB PO SCH (08:45)
--- NOTE | 2022-08-15 08:56 | CT Scan Report ---
CT angio chest PE protocol CT DOSE: 362.45 mGy.cm HISTORY: 81 years-old Male with PE. Acute shortness of breath with cough. History of testicular car cinoma TECHNIQUE: Multiple CTA images of the chest were obtained after the intravenous administration of 96 ml Optiray. Coronal and sagittal MIPS were obtained from the axial data set and were submitted for [employer]. All measurements were obtained according to NASCET criteria. A dose lowering technique was ut ilized adhering to the principles of ALARA. COMPARISON: CT abdomen and pelvis of same day, chest CT 06/19/2022 FINDINGS: CTA: Moderate cardiomegaly. Prior median sternotomy and CABG with extensive port lions coronary artery calcifi cations. Atherosclerosis of the thoracic aorta without aneurysm. Lobar, segmental and subsegmental pu lmonary emboli of the lingula and left upper lobe with additional lobar, segmental and subsegmental p ulmonary bladder within the right lower lobe. No central pulmonary embolus. CT CHEST: Unremarkable thyroid. No lymphadenopathy identified. There is no pneumothorax or pleural effusion kayli ntified. Mild pulmonary emphysema. Dependent bibasilar atelectasis. 1.5 cm wedge-shaped consolidative opacity of the basal right lower lobe on image 117. There is a new 9 mm solid nodule present within the basal right lower lobe on image 81. Pleural calcifications of the lung apices. There are a few sc attered ill-defined subcentimeter groundglass nodular opacities of the lungs measuring up to 8 mm wit hin the right upper lobe which are new from prior. Central airways appear patent. Large volume of upper abdominal ascites with cirrhosis. Gynecomastia. Healing partially imaged procedure manager ior right 12th rib fracture. Chronic appearing nondisplaced left-sided rib fractures. IMPRESSION: 1. Bilateral pulmonary emboli as above. No evidence of right heart strain. 2. No pleural effusion. There is however a small wedge-shaped consolidative opacity of the basal righ t lower lobe suspicious for a developing pulmonary infarct. 3. 9 mm solid nodule of the basal right lower lobe is noted in addition to a few scattered subcentime ter groundglass nodular opacities, notably within the right upper lobe. These may be on an infectious or inflammatory basis, however attention at follow-up is recommended to exclude metastasis. 4. Cirrhosis with large volume abdominal ascites. ACT 112: Negative or not required by law. The above report was generated using voice recognition software. It may contain grammatical, syntax o r spelling errors. Electronically signed by: Marquis Cullen M.D. 08/15/2022 8:54 AM
--- NOTE | 2022-08-15 09:19 | Electrocardiogram Report ---
Test Reason : Blood Pressure : / mmHG Vent. Rate : 081 BPM Atrial Rate : 074 BPM P-R Int : 000 ms QRS Dur : 166 ms QT Int : 492 ms P-R-T Axes : 000 -76 101 degrees QTc Int : 571 ms Ventricular-paced rhythm with fusion beats and PVCs Abnormal ECG When compared with ECG of 26-JUN-2022 20:58, No significant change was found Confirmed by Lalit Lisa ([id number]) on 08/15/2022 9:19:17 AM Referred By: Perlita Maciel Confirmed By:Cody Lisa
[2022-08-15 10:31] LABS: Partial Thromboplastin Ratio 1.9
[2022-08-15 10:47] LABS: Partial Thromboplastin Time 53.2 Seconds (21.0-31.0)
[2022-08-15] MEDS ORDERED: CYANOCOBALAMIN (B-12) 2,500 MCG TABLET SL SCH (12:00)
--- NOTE | 2022-08-15 15:29 | Ultrasound Report ---
ULTRASOUND-GUIDED THERAPEUTIC PARACENTESIS: HISTORY: Ascites. Procedure: The procedure and its risks, benefits and alternatives were discussed with the patient and written informed consent was obtained. Preliminary ultrasound of the abdomen was performed to determ ine a safe needle entry site. The right lower quadrant was prepped and draped in the usual sterile fashion. 1% Lidocaine was used f or local anesthesia. A paracentesis needle-sheath was inserted into the peritoneal space using ultras ound guidance. The needle was removed and the sheath was connected to tubing and a vacuum suction dev ice. A total of 4 liters of yellow ascites was aspirated. The sheath was removed and a sterile dressi ng applied. The patient tolerated the procedure well and there were no immediate complications. IMPRESSION: Ultrasound-guided therapeutic paracentesis with aspiration of 4 liters of ascites. ACT 112: Negative or not required by law. Electronically signed by: Jhoan Alvarez M.D. 08/15/2022 3:28 PM
[2022-08-15 16:28] LABS: Partial Thromboplastin Ratio 1.1; Partial Thromboplastin Time 30.2 Seconds (21.0-31.0)
--- NOTE | 2022-08-15 16:55 | Hospitalist Progress Note ---
Date of Service August 15, 2022 Assessment & Plan (1) Bilateral pulmonary embolism: Plan: doing pretty well. Hard to discern if his dyspnea on exertion was related to the PEs, the ascites, or both. Currently on heparin dripafter discussion of risk/benefit, transition to Eliquis. Discussed with pharmacy given his age and creatininebut with acute PE, guidelines remain 10 mg twice daily, 5 mg twice daily thereafter on clinical judgment,probably would reduce to 2.5 twice daily once he is clearly stable in the future (2) Ascites: Plan: status post 4 L therapeutic paracentesis, cytology ordered. (3) Pacemaker: Plan: -In place secondary to nonsustained V. tach since 2002 and has been replaced twice -Stable, no further intervention (4) Diabetes mellitus, type 2: Plan: - A1c 5.8, sugars have been reasonable (5) Severe protein-calorie malnutrition: Plan: -Unfortunately due to malignancy, patient has had poor p.o. intake for the past few months and has lost a significant amount of weight. 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 still too soon to tell if breathing feeling better post para or not. discussed blood thinners - notes that he's not too good with shots so after discussion of risk/benefit and track record of different blood thinners - he would prefer PO over SQ. otherwise no complaints. Discussed possibly going homehe feels up to it, would prefer to stay overnight to ensure that he continues to do well. Review of Systems Review of Systems: All systems reviewed & are unremarkable except as noted in HPI & below Physical Exam Physical Exam: In general he is awake and alert fatigued but no distress. HEENT normocephalic atraumatic mucous membranes moist. Breathing unlabored no accessory muscle use good effort. Skin shows no rashes no pallor or icterus. Neuro without focal deficits. Abdomen soft still moderately distended with a mild fluid wave nontender no guarding rebound or rigidity Results & Data Results & Data ([facility]) Vital Signs (Past 12 Hours) Vital Signs Pulse Pulse Resp BP BP Pulse Ox O2 Del Method 08/15/22 15:34 98 08/15/22 15:00 82 15 90 08/15/22 14:56 85 15 08/15/22 13:30 80 15 08/15/22 13:30 104/70 08/15/22 13:00 80 14 100 08/15/22 13:00 92/64 L 08/15/22 12:30 80 22 99 08/15/22 12:30 98/71 L 08/15/22 12:00 80 16 99 08/15/22 12:00 92/65 L 08/15/22 11:30 79 12 100 08/15/22 11:30 94/65 L 08/15/22 11:00 82 08/15/22 10:30 80 15 99 08/15/22 10:30 97/67 L 08/15/22 10:09 93 H 12 08/15/22 09:30 80 14 99 08/15/22 09:30 84/61 L 08/15/22 09:00 80 17 99 08/15/22 09:00 111/74 08/15/22 08:48 80 12 98 08/15/22 08:48 106/72 08/15/22 08:31 82 15 08/15/22 08:00 80 13 08/15/22 08:00 91/63 L 08/15/22 07:30 80 23 99 08/15/22 07:30 99/69 L 08/15/22 07:00 80 20 98 08/15/22 07:00 90/68 L 08/15/22 06:30 80 19 100 08/15/22 06:30 100/68 08/15/22 06:00 80 14 100 08/15/22 05:37 80 21 100 08/15/22 05:37 90/67 L 08/15/22 05:30 80 12 99 08/15/22 05:00 80 12 88 L 08/15/22 05:00 84/60 L 08/15/22 05:39 80 17 90/67 L 99 Room Air PG Care Time/CCT Total # of Minutes Spent Total Time Spent with Patient: Total time spent is greater than 50% in coordination of care (as documented) at patient's floor/unit and/or counseling patient: Coding Level of Care Code 82470 Subseq Hosp Care Lvl 3 Diagnoses Bilateral pulmonary embolism I26.99 Ascites R18.8 Pacemaker Z95.0 Diabetes mellitus, type 2 E11.9 Severe protein-calorie malnutrition E43 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
[2022-08-15] MEDS ORDERED: Heparin IVP from UFH Protocol (WITH Bolus) IV ONE (17:00)
[2022-08-15] MEDS ORDERED: POTASSIUM CHLORIDE CRTAB 20 MEQ TABCR PO STA (17:03)
[2022-08-15] MEDS ORDERED: TAMSULOSIN HCL 0.4 MG CAP PO SCH (21:00)
[2022-08-15] MEDS ORDERED: CHLORHEXIDINE GLUCONATE 0.12% 480 ML MT SCH (21:00)
[2022-08-15] MEDS: APIXABAN 5 MG TABLET PO SCH (21:01)
[2022-08-16] MEDS: carvediloL 12.5 MG TAB PO SCH ×2 (07:42→07:48)
[2022-08-16] MEDS: SPIRONOLACTONE 25 MG TAB PO SCH (07:43)
[2022-08-16] MEDS: APIXABAN 5 MG TABLET PO SCH (07:43)
[2022-08-16] MEDS: ASPIRIN 81 MG ECTAB PO SCH (07:43)
[2022-08-16 10:49] LABS: BUN Creatinine Ratio 20.6 (10-20); Creatinine Clr Calc Pharmacy 35.7 ml/min; Est GFR (African American) 43.2 ml/min; Est GFR (Non-African American) 37.3 ml/min; Potassium 4.5 mmol/L (3.5-5.1)
--- NOTE | 2022-08-16 16:23 | Discharge Summary ---
Date of Service August 16, 2022 Admission HPI Per Admitting Provider Patient is an 81-year-old male with past medical history of metastatic testicular cancer, CAD with AICD, CKD 4, BPH, diabetes, and cirrhosis secondary to NELSON presenting to the hospital for having a CT scan of the abdomen ordered by his oncologist in the outpatient setting for abdominal swelling which inadvertently had shown bilateral pulmonary emboli. Does report that he has been short of breath especially with exertion and going up stairs. Otherwise patient has been participating in physical therapy due to prolonged hospital stays causing him to become weak. Reports substantial weight loss, poor appetite and decreased oral intake. Patient lives at home with his and has difficulty with ambulation and requires the use of a walker for the majority of his activity. ED course: Patient was brought to the emergency department by private vehicle and was evaluated by her ED provider who ordered blood work and reviewed imaging that was taken earlier today. Blood work included CBC which was significant for mild anemia. Otherwise Heparin was started without bolus due to the concern for previous SAH in 2019. Principal Diagnosis PE Discharge Exam In general he is awake and alert pleasant no distress. HEENT normocephalic atraumatic mucous membranes moist. Breathing unlabored no accessory muscle use good effort. Skin shows no rashes no pallor or icterus. Abdomen soft mildly distended with a fluid wave, no tenderness. Skin shows no rashes or pallor. Discharge Data Allergies Allergy/AdvReac Type Severity Reaction Status Date / Time No Known Drug Allergies Allergy nkda Verified 08/15/22 11:42 Consultations 08/14/22 22:24 ED Decision to Admit Stat Ordered Studies 08/14/22 22:58 CT for pulmonary embolism PE [CT angio chest PE protocol] Urgent 08/15/22 US paracentesis abd w/image Routine Hospital Course (1) Bilateral pulmonary embolism: doing pretty well. Hard to discern if his dyspnea on exertion was related to the PEs, the ascites, or both. Discussed risks and benefits of different methods of anticoagulation in the context of cancerand he opted for oral anticoagulation with Eliquis. Discussed with pharmacy given his age and creatininebut with acute PE, guidelines remain 10 mg twice daily, 5 mg twice daily thereafter on clinical judgment,probably would reduce to 2.5 twice daily once he is clearly stable in the future (2) Ascites: status post 4 L therapeutic paracentesis, cytology ordered. 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 intake for the past few months and has lost a significant amount of weight. 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 anticoagulation, close outpatient PCP and oncology follow-up. Total Time Total Time Spent Total Time Spent (In Minutes): Greater than 30 Discharge Plan Discharge Items Patient Disposition: Home - Self-Care Reason For Visit: ABNORMAL CTS FINDING Discharge Diagnosis: blood clot, abdominal fluid (ascites) see below Activity: Resume your previous activity Non-emergency contact: Primary Care Provider and Oncologist Call non-emergency contact if: you have any medication questions and your symptoms worsen Follow-up/Referrals: Josafat Kohler, [Primary Care Provider] - 08/17/22 3:40 pm (Please arrive 15 minutes prior to appoinment time.) Diet: Low Sodium (2gm) Addtl Attending Provider Instructions: Pulmonary emboli (blood clots) -You were admitted due to a new finding of blood clots on a CT scanthis was done due to worsening shortness of breath when you are walking. As we discussed, it is quite common for people to develop clots in the context of cancer. Fortunately you are doing very wellyour breathing looks good and stable, and your vital signs are very reassuring. -It appears quite safe to let you go home -As we discussed, there are multiple ways to use blood thinners in the context of blood clots, particularly as it relates to cancer. After discussion, we have moved forward with Eliquis (apixaban)which is a pill blood thinner that you will take twice a day indefinitely. For the first week, you should take 10 mg twice a day. After that, for the next several months, you will take 5 mg twice a day. After about 3 months, if you are doing really well, you and Dr. Kohler, and your oncologist can talk about possibly reducing to 2.5 mg twice a day -Somewhere in your journey, a prescription for an injectable blood thinner called Lovenox and (enoxaparin) was sent inonce we discussed her situation, and you noted that you would prefer to avoid shots if you could, we switched things over to the Eliquis. To be cleardo not take both. When you go to the pharmacy, if they were to try to fill the Lovenox (enoxaparin), simply tell them "thanks but no thanks" and only take the Eliquis -Of course, when you are on a blood thinner, you are going to be more prone to bleedingbut the only alternative would be to not treat the clots. Fortunately, with blood thinners like Eliquis, we see much less serious bleeding than we used to with some of the other, older, blood thinners. Typically what we will see is more in the range of what is labeled as "nuisance bleeding" (it can be more than just a nuisancebut it is labeled as such because it is not life-threatening). What this usually means is if you cut your finger it could be a gusher rather than the news, and the same thing with a nosebleed. Is a nice rule for safety, if you have bleeding that you can put pressure on, put pressure on it (putting a paper towel on the cut and holding pressure, or pinching the nose bleed/leaning/putting pressure on it) and then look at the clock. Typically bleeding does not require further evaluation if it resolves within about 10 minutes. The reason to look at the clock is that for most people, 2 minutes will feel like 10, and 10 will feel like forever. The other thing to keep in mind is holding 10 minutes of continuous pressure (20 separate 32nd intervals when you peak over and over is very different from 10 minutes of continuous pressure when it relates to stopping bleeding). That said, if it is bleeding that does not respond to 10 minutes of pressurethe nosebleed might need packed or cauterized/the cut might need a stitch thrown in it. Similarly, if its bleeding that you cannot put pressure on (such as vomiting blood or pooping blood)then this becomes a rule for safety because you know that he should be checked out right away. Again, fortunately, we see serious bleeds much less often with Eliquis type of blood thinners compared to the older ones -As we discussed also, the cost/coverage situation for the Eliquis is a bit "silly" because of time of year and insurance bureaucracy. Use the coupon to have your Eliquis covered for the month of August. In September, hopefully it will be a very reasonable co-pay; if not Dr. Kohler can look at possibly having coupons to continue coverage, dispensing samples if he has them, or if neither option are availablethen considering a switch to a different but very similar blood thinner such as Xarelto. Dr. Kohler will be aware that this is a "up in the air" situation so do not worry about itjust make sure that you do not run out of a blood thinner altogether Abdominal fluid (ascites) -Given how much fluid was in your abdomen, its just as possible that the short of breath with exertion was because of pressure from your abdomen onto the bottom of your lungs, as well as simply carrying around much more weight from the fluid. We had them drained about 4 L of fluid, which seems to have helped a good bit. The fluid appears really to relate more back to your liver, than any findings that seem clearly related to any new cancerous findings, which is reassuring that nothing looks new/progressed. Of course, this fluid can reaccumulate over time, and Dr. Kohler could get she set up to have things drained again in the future if you need to for symptom relief. Pending Studies at Discharge: No Stand-Alone Forms: [facility], Smoking Cessation Medications and DC Order Prescriptions: New Eliquis 5 mg tablet 5 mg PO BID Qty: 70 0RF Rx Instructions: 10mg (2 pills) PO BID x 6 days, then 5mg (1 pill) po bid Continued carvedilol 12.5 mg tablet 12.5 mg PO BID Qty: 180 3RF Rx Instructions: must administer with a meal/food (DME) BD AutoShield Duo Pen Needle 30 gauge x 3/16" needle See Rx Instructions .ROUTE .MEDSUPPLY Qty: 100 1RF Rx Instructions: Use once daily to inject Victoza. DX E11.22 tamsulosin 0.4 mg capsule 0.4 mg PO HS Qty: 30 5RF ondansetron 4 mg tablet,disintegrating 4 mg PO Q8H PRN (Reason: nausea and vomiting) Qty: 30 1RF Victoza 2-Ronen 0.6 mg/0.1 mL (18 mg/3 mL) pen injector See Rx Instructions .ROUTE .COMPLEX Qty: 18 3RF Dose Instruction: INJECT 0.2ML (=1.2MG) SUBCUTANEOUSLY EVERY MORNING Rx Instructions: INJECT 0.2ML (=1.2MG) SUBCUTANEOUSLY EVERY MORNING chlorhexidine gluconate [Paroex Oral Rinse] 0.12 % mouthwash 15 ml buccal HS Qty: 473 0RF furosemide [Lasix] 20 mg tablet 40 mg PO QAM Qty: 60 0RF (DME) BiPap Machine Misc See Rx Instructions .MEDSUPPLY Qty: 1 0RF Rx Instructions: BIPAP 08/25 with heated humidification, tubing, and supplies. JANNIE: 99+ years. silver sulfadiazine [Silvadene] 1 % cream 1 applic topical ONCE Qty: 50 1RF Rx Instructions: apply a 1.5 mm thickness benzonatate 200 mg capsule 200 mg PO TID PRN (Reason: cough) Qty: 30 0RF cyanocobalamin (vitamin B-12) 5,000 mcg Capsule 5,000 mcg PO QPM Rx Instructions: @ lunch multivitamin tablet 1 tab PO QPM krill oil 500 mg capsule 500 mg PO QPM PRN (Reason: Dry Eye(S)) aspirin 81 mg Tablet,Delayed Release (Dr/Ec) 81 mg PO QAM Marijuana-Medical Card 1 inh inhalation UD PRN (Reason: Nausea) spironolactone 25 mg Tablet 25 mg PO DAILY Qty: 30 0RF mirtazapine 15 mg Tablet 15 mg PO HS Qty: 10 0RF Discontinued enoxaparin [Lovenox] 80 mg/0.8 mL Syringe 70 mg subcut Q12H Qty: 8 0RF Discharge Orders: Discharge Order (Routine); Ordered 08/16/22 Ordered By: Flakito Crowell Admission Data Admit Date/Time: 08/14/22 23:19 Attending Provider: Flakito Crowell Admit Provider: Daniel Lawrence Primary Care Provider: Josafat Kohler Other Providers: [facility] ; Monica Lizarraga Coding Level of Care Code D/C DAY MANAGEMENT >30 MINS Diagnoses Bilateral pulmonary embolism I26.99 Ascites R18.8 Pacemaker Z95.0 Diabetes mellitus, type 2 E11.9 Severe protein-calorie malnutrition E43 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
== END 2022-08-16 12:21 | disposition home or self-care (01) | DRG 175 ==
LOC: ED 16:41 → EDINP 23:19 → SUATTDRO 23:19 → 2N 08-16 01:15

== ENCOUNTER 2022-12-30 10:20 | Inpatient (IN) ==
[2022-12-30] MEDS ORDERED: CEFEPIME 2,000 MG/20 ML VIAL IV STA (11:13)
[2022-12-30] MEDS ORDERED: BACITRACIN OINT 15 GM TUBE EXT ONE (11:13)
[2022-12-30] MEDS ORDERED: SODIUM CHLORIDE 0.9% 1000ML 1,000 ML IV ONE (11:15)
[2022-12-30 11:16] LABS: Basophils # (auto) 0.02 K/uL (0-0.2); Basophils % (auto) 0.5 %; Eosinophils # (auto) 0.09 K/uL (0-0.50); Eosinophils % (auto) 2.2 %; Hematocrit (blood only) 25.2 % (42.0-52.0); Hemoglobin 8.3 g/dl (14.0-18.0); Immature Granulocytes # (auto) 0.02 K/uL (0.01-0.20); Immature Granulocytes % (auto) 0.5 %; Lymphocytes # (auto) 0.99 K/uL (1.2-3.4); Mean Corpuscular Hemoglobin 33.9 pg (25.0-34.0); Mean Corpuscular Hgb Conc 32.9 g/dL (32.0-36.0); Mean Corpuscular Volume 102.9 fL (80.0-100.0); Mean Platelet Volume 13.7 fL (9.4-12.4); Monocytes # (auto) 0.61 K/uL (0.11-0.59); Monocytes % (auto) 14.8 %; Nucleated RBC # (auto) 0.02 K/uL (0-0.12); Nucleated RBC % (auto) 0.5 %; Platelet Count 71 K/uL (130-400); RDW Coefficient of Variation 16.9 % (11.5-14.5); Red Blood Count 2.45 M/uL (4.70-6.10); White Blood Count 4.13 K/ul (4.8-10.8)
[2022-12-30 11:23] LABS: Albumin Globulin Ratio 0.9 (0.9-2); Albumin Level 2.8 gm/dl (3.4-5.0); Bilirubin,Total 0.7 mg/dl (0.2-1.0); C Reactive Protein 1.08 mg/dl (0-0.5); Calcium 8.1 mg/dl (8.6-10.3); Creatinine Clr Calc Pharmacy 39.4 ml/min; Est GFR (African American) 49.9 ml/min; Globulin 3.1 gm/dl (2.5-4.0); Potassium 4.4 mmol/L (3.5-5.1); Total Protein 5.9 gm/dl (6.0-8.3)
[2022-12-30] MEDS ORDERED: SODIUM CHLORIDE 0.9% 1000ML 500 ML IV ONE (12:34)
--- NOTE | 2022-12-30 13:13 | History & Physical Report ---
Date of Service December 30, 2022 Assessment & Plan (1) Cellulitis of left lower extremity: Plan: attending: Dr. Moy impression: 82-year-old male with complex past medical history as outlined above. Patient presents with worsening left lower extremity c ellulitis. He was previously seen in the emergency department 12/22/2022. Since that time areas become more erythematous and is now with purulent secretions. Patient has good sensation of his lower extremity. There is no streaking. Good pedal pulses are appreciated. Patient denies any fever, chills, sweats, rigors. No other other acute findings. Patient would benefit from inpatient stay for IV antibiotic biotics. Wound care nurse will be consulted. Patient most likely will need outpatient wound care following. Left lower extremity cellulitis * no history of MRSA in the past. Prior cultures revealed. No other bacteremia noted. Previous tissue culture of hip with enterococcus * Lactate improved from 4.3 to 2.3 after 1st liter * Will not follow sepsis protocol for fluid rescuctation due to heart failure and CAD history * Procalcitonin and wbc not elevated.Afebrile. CRP sl;ightly elevated at 1.08 * Follow inflammatory markers * Wound care nurse consulted. Appreciate their help (2) High serum lactate: Plan: * Most likely multifactorial to acute infection, CKD, Cirrhosis * improved from 4.3-2.3 with 1 L fluid * we will follow serial labs and continue to treat for left lower extremity cellulitis (3) Acute hypotension: Plan: * systolic blood pressure typically runs 87-93 * Low BP on arrival at 71/42 * Corrected to baseline after 500 cc NSS * Continue to monitor vitals per protocol * Admit to med surg telemetry (4) Hyponatremia: Plan: * sodium level 131 * baseline sodium is closer to 140 * repeat BMP at 1600 today * no aggressive treatment at this time but monitor closely (5) Obstructive sleep apnea: Plan: * patient follows with sleep disorder clinic and was most recently seen in May 2022 * most recent compliance report reviewed. Continue BiPAP at 08/25. Patient's AHI is 5.1 (6) Paroxysmal ventricular tachycardia: Plan: * follows with Dr. Mcnair * previous placement of ICD * continue with carvedilol and apixaban * monitor on telemetry (7) Lymphadenopathy, abdominal: Plan: * secondary to recurrent metastatic testicular mixed cell carcinoma * currently receiving salvage radiation therapy * patient does require routine paracentesis approximately every 10 days. Most recent paracentesis performed 12/28/2022. No previous history of SBP (8) Nocturnal hypoxemia: Plan: * patient with obstructive sleep apnea requiring BiPAP at 08/25 * bleeding supplemental oxygen to maintain SaO2 above 90% (9) Prolonged QT interval: Plan: * avoid QT prolonging agents. * EKG with QTc of 571 ms (10) Atrial flutter: Plan: * continue with beta-lina and anticoagulation * monitor on telemetry (11) Benign prostatic hyperplasia: Plan: * patient chronically on tamsulosin * no prior history of indwelling catheter (12) CKD (chronic kidney disease): Plan: * creatinine currently 1.5 which is within the baseline parameters for this patient * continue to monitor serial labs (13) Diabetes mellitus, type 2: Plan: * continue the patient's Victoza injection subcutaneously every morning * for now we will also start patient on protocol for NovoLog sliding scale insulin * follow BSG's as well as random glucose. If they tend to trend upward, hold Victoza and start twice daily Lantus with sliding scale insulin with NovoLog * most recent hemoglobin A1c is 5.8%. We will repeat hemoglobin A1c with morning labs * no indication for pharmacy hypoglycemic consult at this time but if patient's cellulitis worsens or he is proven to have bacteremia, low threshold for glycemic management consult Plan DVT prophylaxis: Continue apixaban 5 mg p.o. twice daily. Avoid SCDs and AMITA hose secondary to lower extremity cellulitis and peripheral neuropathy. Ambulate as tolerated CODE STATUS: Patient states that he has a living will and advanced directive and does not want cardiopulmonary resuscitation or mechanical ventilation or tube feeding. Palliative care note from last fall completed by Taty Rose DNP stated the patient would want to have resuscitation. I clearly discussed this with the patient and he was clear that he would not want heroic measures.. Okay to give IV antibiotics and discuss other interventions with his should he not be able to make decisions. Please refer to Dr. Moy's addendum for further recommendations and corrections. History of Present Illness Chief Complaint: left lower extremity cellulitis Primary Care Provider: Josafat Kohler DO attending: Dr. Moy this is an 82-year-old male that presents with left lower extremity cellulitis. He had previously been seen by the emergency department on where he had a large bullae that was popped. Underlying tissue at that time was reported to be not concerning for infection. He was not discharged on antibiotics and instructed to report with his PCP. Patient did well until this morning when his noticed that the area seemed to be much more red and warm to touch. There was also a significant amount of purulence. Patient was brought to the emergency department evaluated by the ER physician who agreed that the areas seem to be more purulent and concerning for infection. Patient's procalcitonin was negative. However, patient's lactic acid was elevated at 4.3 and his C-reactive protein was 1.08. Patient was given IV fluid, cefepime, daptomycin. Although the patient did have a lower than usual blood pressure, he typically has a systolic pressure between 88 and 93. Consequently, he was not given a fluid challenge as this did not appear to be sepsis. After the first liter of fluid, the lactic acid dropped to 2.3. Patient had no hypoxia, no fever, no diaphoresis, and no rigors. Concern was limited to the left lower extremity cellulitis. Patient does have a complicated past medical history including recurrent testicular cancer for which he is receiving salvage radiation therapy. Patient has cirrhosis and typically has paracentesis every 10 days. His most recent paracentesis was on 12/28/2022 with 4.5 L evacuated. Patient has no history of SBP. Patient also has had an EGD in the past which failed to show any evidence of esophageal varices. He does follow regularly with gastroenterology. Regarding the patient's retroperitoneal adenopathy, this is secondary to recurrent testicular mixed cell carcinoma. 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 twice daily. He denies any history of DVT or pulmonary emboli. Patient denies any chest pain or tightness. He is not aware of any cardiac arrhythmias. He does have history of paroxysmal atrial fibrillation, placement of implanted ICD, prolonged QTc of 571 ms, CHF/CAD with Lasix 20 mg p.o. twice daily and carvedilol for treatment. As previously mentioned the patient has a relatively low blood pressure as a rule. Currently blood pressure is 91/59 patient has a history of obstructive sleep apnea and follows with the sleep disorder clinic. He is on BiPAP therapy at home at 08/25. he most recently saw Winnie Cobb PA-C in May 2022. He reports compliance with his BiPAP. Patient also reports diabetes mellitus. He is on liraglutide once daily with no insulin use. Patient reports that he does have an advanced directive and states that he would be a DNR/DNI with no heroics. Case reviewed with Dr. Moy. Patient will be admitted to the [facility] telemetry unit for IV antibiotics and monitoring of blood pressure, lactic acid, CRP. Allergies Allergy/AdvReac Type Severity Reaction Status Date / Time No Known Drug Allergies Allergy nkda Verified 12/26/22 13:00 Home Medications Medication Instructions Recorded Confirmed Type cyanocobalamin (vitamin B-12) 5,000 mcg PO QPM 11/13/18 12/30/22 History 5,000 mcg capsule multivitamin 1 tab PO DAILY 03/04/19 12/30/22 History krill oil 500 mg capsule 500 mg PO QPM PRN Dry Eye(S) 07/18/21 12/30/22 History BiPap Machine #1 ea 05/23/22 12/21/22 Rx carvedilol 12.5 mg tablet 12.5 mg PO BID #180 tabs 09/15/22 12/30/22 Rx tamsulosin 0.4 mg capsule 0.4 mg PO HS #30 caps 09/19/22 12/30/22 Rx pen needle,diabetic dual safty 30 #100 ea 10/06/22 12/21/22 Rx gauge x 3/16" (BD AutoShield Duo Pen Needle) furosemide 20 mg tablet (Lasix) 20 mg PO BID 12/18/22 12/30/22 History cholestyramine-aspartame 4 gram 4 g PO BIDWMEAL 12/20/22 12/30/22 History oral powder for susp in a packet apixaban 5 mg tablet (Eliquis) 5 mg PO BID 12/30/22 12/30/22 History liraglutide 0.6 mg/0.1 mL (18 mg/3 1.2 mg subcut QAM 12/30/22 12/30/22 History mL) subcutaneous pen injector (Victoza 2-Ronen) silver sulfadiazine 1 % topical 1 applic topical DAILY PRN Wound 12/30/22 12/30/22 History cream (Silvadene) Care Past Med/Surg History Medical History (Updated 12/30/22 @ 14:51 by Forrest Prieto PA-C) Abdominal pain Atrial fibrillation FOLLOWED BY DR. RIOS Atrial flutter Presented to the emergency room on August 16, 2020 after syncopal episode; arrhythmia identified on arrival- based on his ICD evaluation, converted with an ICD shock and "seems to have remained in sinus rhythm. 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 H/O acute myocardial infarction 1988 History of abdominal paracentesis "GETS EVERY 10 DAYS" History of bladder stone History of cancer chemotherapy History of depression History of kidney stones History of subarachnoid hemorrhage History of ventricular fibrillation s/p ICD TE-MOAK (hard of hearing) Hyperlipidemia Hyponatremia ICD (implantable cardioverter-defibrillator) in place INITIALLY IMPLANTED 2002 ; GENERATOR CHANGE 2011 AND DECEMBER 02, 2019- [employer] Ischemic cardiomyopathy (Unknown) S/p ICD implantation EF 40% per most recent echo 08/2020 Obstructive sleep apnea CPAP>NOT USING D/T "CAN'T GET A GOOD FIT" Retroperitoneal lymphadenopathy SNHL (sensorineural hearing loss) Testicular cancer with mets to the lymph nodes. Needle biopsy at [facility] dx 11/2021.>TREATED BY CHEMO, GETTING READY TO HAVE RADIATION TX AT [facility] Surgical History Difficult airway for intubation PT REPORTS WAS TOLD PT WAS DIFFICULT INTUBATION - UNKNOWN FURTHER DETAILS - ? SURGERY WAS TOLD THIS- POSSIBLY BYPASS SURGERY PER -PER PT 30+ YRS AGO?-NO RECENT ISSUES PER PT H/O cardiac radiofrequency ablation DONE AT [facility]>DR. RIOS H/O tympanomastoidectomy RIGHT 11/12/20 [facility] History of adenoidectomy History of cardiac cath PRIOR TO HEART SURGERY, [facility] - NO STENT(S) History of cataract surgery R/L History of colonoscopy History of coronary artery bypass graft 3 VESSELS 1998 History of cystoscopy REMOVAL KIDNEY STONE History of laminectomy History of nasal septoplasty History of tonsillectomy and adenoidectomy History of tympanomastoidectomy (~12/2020) LEFT Hx of oral surgery (06/05/22) Removal of Infected Necrotic Bone Right Posterior Mandible and Infected Bone Screw and Fractured Teeth(Right) - Smooth Zuniga, MYRON Implantation of internal cardiac defibrillator (05/02/12) Port-A-Cath in place (12/22/21) Insertion of Access Port Right Subclavian with Fluoroscopy(Right)>POWER PORT Presence of single chamber implantable cardioverter-defibrillator (ICD) BEING MONITORED BY DR. RIOS S/P CABG (coronary artery bypass graft) S/P ICD (internal cardiac defibrillator) procedure Placed 2002, generator change 2011 and 2019 Family History Mother Family history of diabetes mellitus Breast cancer Grandmother (Maternal) No problems noted. Grandmother (Paternal) Myocardial infarction Breast cancer Father Myocardial infarction Brother Brain cancer Sister Cancer Other No family history of adverse response to anesthesia Denies family history of Ovarian cancer Prostate cancer Colorectal cancer Social History Smoking Status: Former smoker Tobacco Type: Cigarettes packs per day: 2; Cigarettes Per Day: 2.5; Second Hand Exposure: No; Hx Alcohol Use: No Hx Substance Use: No Preferred Language: Kiswahili Communication Ability: Effective Communication Ability Comment: very TE-MOAK Visual Impairment: No Limitations Hearing Ability: Normal Business Development Coordinator Required: No Beliefs That Will Affect Care: None marital status: Current Living Situation: Spouse current occupational status: retired 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 How many Children do You have: 1 Feels Safe at Home: Yes Childhood Exposure to Second-Hand Smoke: No Diet Comment: "go low" during the past year weight has: decreased > 10 lbs Dental Care, Regularly: Yes Physical Activity Frequency: 1-2 Times per Week Seatbelt Use: always Sunscreen Use: No Assistive Devices: Denture - Upper, Denture - Lower, Glasses, Hearing Aid - Bilateral and Walker Review of Systems Review of Systems: A total of 10 systems was reviewed and is negative other than as listed in the HPI Physical Exam Physical Exam: GENERAL : No acute distress EYES: No icterus, gaze conjugate NOSE: No evidence of epistaxis MOUTH: No lesions or candidiasis NECK: Supple LUNGS: CTA B/L, no wheezes, rales or rhonchi. Good inspiratory effort CHEST: Mediport placed in the right subclavicular region and is currently accessed. HEART: Regular, rate controlled ABDOMEN: Soft, NT, ND, BS Present EXTREMITIES: Trace bilateral symmetrical LE edema, pedal pulses intact and equal bilaterally. Dressing taken down from the left rivas area. Wound is open and appears to have good granulomatous tissue. It is red and inflamed and warm. There is some minimal erythema around the area. It is tender to light palpation. Dressing that was removed had yellow purulent secretions on it. Secretions were adequately contained by the dressing. NEURO: A&OX3. Hard of hearing. No other focal deficits appreciated Results & Data Results & Data Vital Signs (Past 12 Hours) Vital Signs Temp Pulse Pulse Resp BP BP Pulse Ox 12/30/22 12:15 81 16 91/59 L 97 12/30/22 11:52 80 12/30/22 11:10 80 16 87/52 L 100 12/30/22 10:29 36.6 C 95 H 16 71/42 L 100 O2 Del Method 12/30/22 12:15 Room Air 12/30/22 11:52 12/30/22 11:10 Room Air 12/30/22 10:29 Room Air Critical Care Results & Data Vital Signs (Past 12 Hours) Vital Signs Temp Pulse Pulse Resp BP BP Pulse Ox 12/30/22 13:00 80 16 91/61 L 100 12/30/22 12:15 81 16 91/59 L 97 12/30/22 11:52 80 12/30/22 11:10 80 16 87/52 L 100 12/30/22 10:29 36.6 C 95 H 16 71/42 L 100 O2 Del Method 12/30/22 13:00 Room Air 12/30/22 12:15 Room Air 12/30/22 11:52 12/30/22 11:10 Room Air 12/30/22 10:29 Room Air Lab & Micro Results (Past 24 Hours) RBC 2.45 M/uL (4.70-6.10) L 12/30/22 WBC 4.13 K/ul (4.8-10.8) L 12/30/22 Hgb 8.3 g/dl (14.0-18.0) L 12/30/22 Hct 25.2 % (42.0-52.0) L 12/30/22 MCV 102.9 fL (80.0-100.0) H 12/30/22 MCH 33.9 pg (25.0-34.0) 12/30/22 MCHC 32.9 g/dL (32.0-36.0) 12/30/22 RDW Standard Deviation 61.0 fL (36.4-46.3) H 12/30/22 RDW Coefficient of Variation 16.9 % (11.5-14.5) H 12/30/22 Plt Count 71 K/uL (130-400) L 12/30/22 MPV 13.7 fL (9.4-12.4) H 12/30/22 Nucleated Red Blood Cells % (auto) 0.5 % 12/30 Nucleated RBC Absolute Count (auto) 0.02 K/uL (0-0.12) 12/16 02/06 Neutrophils (%) (Auto) 58.0 % 12/30/22 Lymphocytes (%) (Auto) 24.0 % 12/30/22 Monocytes # (Auto) 0.61 K/uL (0.11-0.59) H 12/30/22 Eosinophils # (Auto) 0.09 K/uL (0-0.50) 12/30/22 Immature Granulocyte % (Auto) 0.5 % 12/30/22 Neutrophils # (Auto) 2.40 K/uL (1.40-6.50) 12/30/22 Lymphocytes # (Auto) 0.99 K/uL (1.2-3.4) L 12/30/22 Monocytes # (Auto) 0.61 K/uL (0.11-0.59) H 12/30/22 Eosinophils # (Auto) 0.09 K/uL (0-0.50) 12/30/22 Basophils # (Auto) 0.02 K/uL (0-0.2) 12/30/22 Immature Granulocyte # (Auto) 0.02 K/uL (0.01-0.20) 3 Na 131 mmol/L (136-145) L 12/30/22 K 4.4 mmol/L (3.5-5.1) 12/30/22 Cl 107 mmol/L (98-107) 12/30/22 CO2 17 mmol/L (21-32) L 12/30/22 Anion Gap 7 (3-11) 12/30/22 BUN 24 mg/dl (6-23) H 12/30/22 Creatinine 1.50 mg/dl (0.6-1.4) H 12/30/22 Estimated GFR ( Amer) 49.9 ml/min 12/30/22 Estimated GFR (Non-Af Amer) 43.0 ml/min 12/30/22 BUN/Creatinine Ratio 16.0 (10-20) 12/30/22 Glu 207 mg/dl (70-99(Fasting)) H 12/30/22 Ca 8.1 mg/dl (8.6-10.3) L 12/30/22 Total Bilirubin 0.7 mg/dl (0.2-1.0) 12/30/22 AST 13 U/L (13-39) 12/30/22 ALT 6 U/L (7-52) L 12/30/22 Alkaline Phosphatase 60 U/L (34-104) 12/30/22 TP 5.9 gm/dl (6.0-8.3) L 12/30/22 Albumin 2.8 gm/dl (3.4-5.0) L 12/30/22 Globulin 3.1 gm/dl (2.5-4.0) 12/30/22 Albumin/Globulin Ratio 0.9 (0.9-2) 12/30/22 Calcium Level 8.1 mg/dl (8.6-10.3) L 12/30/22 10:52 I & O Totals 24 Hours 12/29/22 12/30/22 12/31/22 06:59 06:59 06:59 Intake Total 1000 / 1000 Balance 1000 / 1000 Cumulative 12/30/22 10:20 thru 12/30/22 13:55 Intake Total 1000 Balance 1000 RT Ventilator Mngmt (Last Documented) Ventilator Ordered Settings Respiratory Rate 16 12/30/22 13:00 Ventilator - PT Measurements Respiratory Rate 16 Code Status & VTE Plan Code Status DNR/DNI per discussion with patient VTE Prophylaxis Plan VTE Prophylaxis will be ordered: Yes Supervising Physician Co-Signing Physician Notes Patient seen and examined, chart reviewed, case discussed with Forrest Prieto PA-C and I agree with the assessment and plan as above except as otherwise noted Labs and images reviewed Tony is an 82-year-old male with a past medical history of CKD 4, CRF, DM 2, heart failure with ICD placement, cirrhosis 2/2 [place], testicular cancer with retroperitoneal rosa metastasis s/p 4 cycles of cisplatin/etoposide, bilateral PE on anticoagulation, EGD 12/26/2022 with no varices/stomach abnormalities noted who presents with hypotension, elevated lactate, and a left lower extremity wound/blister with clear fluid and bleeding which was seen 12/22/22 and was without erythema/infectious signs. Does not have leukocytosis, slightly neutropenic. Hemoglobin 8.3 from baseline around 9, procalcitonin is normal, CRP 1.08, lactate 4.3. Patient initially hypotensive with systolic in the 80s, improved following 2 systolic 90s which is near his normal baseline after 1 L fluid. Aggressive 30 cc/kg bolus was deferred due to history of heart failure with EF 25%. Prior culture positive 12/22/22 of the left leg was positive for coag negative staph, although this was a surface culture at time of collection was not associated with surrounding erythema/warmth/tenderness. At bedside patient alert, awake, nondistressed. He has bilateral pitting edema 12+ of the rivas and feet. Left rivas with warm, tender, mildly erythematous surface ulceration, on rewrap dressing is C/D/I. Heart rate is regular. No acute distress, answers all questions appropriately Left lower extremity cellulitis: Patient is with a warm, tender, erythematous wound and elevated lactate. Pro-Ashvin is not elevated, no leukocytosis. Suspect mild lower extremity cellulitis, no history of MRSA. Will cover with Rocephin, distant history of otic Pseudomonas otherwise no pseudomonal/resistant gram- negative history. CRP trended. Lactate is now downtrending, cautious fluid boluses as needed given history of reduced EF. Agree with management of chronic issues as above. PG Care Time/CCT Total # of Minutes Spent Total Time Spent with Patient: Total time spent is greater than 50% in coordination of care (as documented) at patient's floor/unit and/or counseling patient: 60 minutes [place] [address] INT INP/OBS CARE 3/75MIN Patient Type New Diagnoses Cellulitis of left lower extremity L03.116 High serum lactate R79.89 Acute hypotension I95.9 Hyponatremia E87.1 Obstructive sleep apnea G47.33 Paroxysmal ventricular tachycardia I47.2 Lymphadenopathy, abdominal R59.0 Nocturnal hypoxemia G47.34 Prolonged QT interval R94.31 Atrial flutter I48.3 Atrial flutter type: typical Benign prostatic hyperplasia N40.0 CKD (chronic kidney disease) N18.9 Diabetes mellitus, type 2 E11.9 Time Spent (min) 60 (10) Atrial flutter Atrial flutter type: typical Qualified Code(s): I48.3 - Typical atrial flutter
--- NOTE | 2022-12-30 13:50 | Emergency Department Note ---
Impression & Plan Cellulitis, High serum lactate, Acute hypotension ED Provider Note INFORMANT: Patient ED PROVIDER(S): Tony Sher MD CHIEF COMPLAINT: Leg pain PLAN: Disposition: Admitted Condition: Good Outpatient prescription management: none Referral: None MEDICAL DECISION MAKING: Patient presented to emergency department complaining of leg pain and concern for Possible infected wound. Physical examination was concerning for cellulitis. The wound was cleansed and dressed. Blood work was obtained. The patient's initial blood pressure was mildly low. He typically does have blood pressures in the 80s and 90s. Because of this fluids were initiated. Patient was found to have a normal white blood cell count and was afebrile but had a high lactate and CRP. In light of his liver disease the significance of the elevated lactate is somewhat clouded. Procalcitonin was negative. Remainder of labs were unremarkable. Patient was not administered a 30 mL/kg fluid bolus as usual for patients with findings concerning for sepsis. Clinically the patient does not appear septic. His liver disease, problems with anasarca, cardiac issues, and advanced kidney disease raised concerns for his ability to tolerate rapid fluid administration. He was hydrated and with minimal fluid administration his blood pressure and vital signs normalized. Fluids are still administered at a more cautious rate. Patient did receive IV cefepime after cultures and due to his history of gram-positive bacteremia he was also given a dose of IV daptomycin. Overall the patient is doing well at this point but should have further management and treatment in the hospital. Consultation was made with the [facility]. The case was discussed and diagnostics were reviewed. They agreed with the careful fluid administration and will bring in the patient for IV antibiotics and monitoring. Patient and significant other were comfortable with the plan and pleased with the treatment. Discussed with manager icu After review of the information above and other included data, I feel the patient requires admission. Triage Nursing notes reviewed and agree them. Vital Signs: reviewed and remarkable for mild hypotension Prior /Outside records reviewed: Prior hospitalization record reviewed. Differential diagnosis: Cellulitis, abscess, MRSA infection, DVT, necrotizing fasciitis, dermatitis, drug eruption, allergic reaction, as well as other pathologies. Diagnostics, as interpreted by me: ECG: none Cardiac Monitoring: Cardiac monitoring ordered by me: The patient was placed on continuous cardiac monitoring and observed. It revealed a paced rhythm at 82 bpm Medical decision rules: none Imaging studies: Deferred HPI: The patient is a 82 year old male who presents to the Emergency Room with complaints of leg pain. Earlier this week patient developed a blister on the rivas spontaneously. He was seen in the ER. No signs of infection. Blister was drained. The superficial skin sloughed off and patient has been using Silvadene cream. The area around the large blister seem to be getting erythematous and uncomfortable. Patient noted some purulent like discharge as well. Patient states he feels generally tired and weak. Current pain is rated as 5/10. Pt denies LOC, headache, fevers, chills, diaphoresis, chest pain, breathing difficulties, nausea, vomiting, abdominal pain, urinary symptoms, numbness, or other complaints. PAST MEDICAL HISTORY: See Below, ventricular tachycardia, chronic kidney disease, anasarca, pancytopenia, cirrhosis PAST SURGICAL HISTORY: See Below, pacemaker SOCIAL HISTORY: See Below, HOME MEDICATIONS: See Below ALLERGIES: See Below VITALS: See Below PHYSICAL EXAMINATION: GENERAL: Awake, alert, chronically ill-appearing, in no distress HENT: Normocephalic, atraumatic. Oropharynx unremarkable. EYES: Normal conjunctiva. Sclera non-icteric. NECK: Inspection normal. Non-tender. Supple. No nuchal rigidity. FROM. No masses. RESPIRATORY: Clear to auscultation. No wheezes. No rales. Normal respiratory effort. CARDIAC: Normal rate. Normal rhythm. No murmurs. No rubs. Extremities warm and well perfused. Pulses equal. No JVD. GI: Soft, mildly-distended. No tenderness to palpation. No rebound or guarding. No masses. RECTAL: Deferred. MUSCULOSKELETAL: Atraumatic. Chest examination reveals no tenderness. The back is symmetrical on inspection without obvious abnormality. There is no CVA tenderness to palpation. No joint edema. LOWER EXTREMITIES: Calves are equal size bilaterally and non-tender. 1+ edema. There is erythematous discoloration surrounding a large open wound on the anterior rivas. Surrounding cellulitis present. Mild purulent exudate present that was mixed with Silvadene. This was removed and no deep extension was appre ciated. No crepitus noted. NEURO: Normal sensorium. No motor deficits noted. SKIN: No rash or jaundice noted. Past Med/Surg History Medical History (Updated 12/30/22 @ 14:51 by Forrest Prieto PA-C) Abdominal pain Atrial fibrillation FOLLOWED BY DR. RIOS Atrial flutter Presented to the emergency room on August 16, 2020 after syncopal episode; arrhythmia identified on arrival- based on his ICD evaluation, converted with an ICD shock and "seems to have remained in sinus rhythm. 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 H/O acute myocardial infarction 1988 History of abdominal paracentesis "GETS EVERY 10 DAYS" History of bladder stone History of cancer chemotherapy History of depression History of kidney stones History of subarachnoid hemorrhage History of ventricular fibrillation s/p ICD SYCUAN (hard of hearing) Hyperlipidemia Hyponatremia ICD (implantable cardioverter-defibrillator) in place INITIALLY IMPLANTED 2002 ; GENERATOR CHANGE 2011 AND DECEMBER 02, 2019- [employer] Ischemic cardiomyopathy (Unknown) S/p ICD implantation EF 40% per most recent echo 08/2020 Obstructive sleep apnea CPAP>NOT USING D/T "CAN'T GET A GOOD FIT" Retroperitoneal lymphadenopathy SNHL (sensorineural hearing loss) Testicular cancer with mets to the lymph nodes. Needle biopsy at [facility] dx 11/2021.>TREATED BY [facility], GETTING READY TO HAVE RADIATION TX AT [facility] Surgical History Difficult airway for intubation PT REPORTS WAS TOLD PT WAS DIFFICULT INTUBATION - UNKNOWN FURTHER DETAILS - ? SURGERY WAS TOLD THIS- POSSIBLY BYPASS SURGERY PER -PER PT 30+ YRS AGO?-NO RECENT ISSUES PER PT H/O cardiac radiofrequency ablation DONE AT [facility]>DR. RIOS H/O tympanomastoidectomy RIGHT 11/12/20 [facility] History of adenoidectomy History of cardiac cath PRIOR TO HEART SURGERY, [facility] - NO STENT(S) History of cataract surgery R/L History of colonoscopy History of coronary artery bypass graft 3 VESSELS 1998 History of cystoscopy REMOVAL KIDNEY STONE History of laminectomy History of nasal septoplasty History of tonsillectomy and adenoidectomy History of tympanomastoidectomy (~12/2020) LEFT Hx of oral surgery (06/05/22) Removal of Infected Necrotic Bone Right Posterior Mandible and Infected Bone Screw and Fractured Teeth(Right) - Smooth Zuniga DMD Implantation of internal cardiac defibrillator (05/02/12) Port-A-Cath in place (12/22/21) Insertion of Access Port Right Subclavian with Fluoroscopy(Right)>POWER PORT Presence of single chamber implantable cardioverter-defibrillator (ICD) BEING MONITORED BY DR. RIOS S/P CABG (coronary artery bypass graft) S/P ICD (internal cardiac defibrillator) procedure Placed 2002, generator change 2011 and 2019 Family History Mother Family history of diabetes mellitus Breast cancer Grandmother (Maternal) No problems noted. Grandmother (Paternal) Myocardial infarction Breast cancer Father Myocardial infarction Brother Brain cancer Sister Cancer Other No family history of adverse response to anesthesia Denies family history of Ovarian cancer Prostate cancer Colorectal cancer Social History Smoking Status: Former smoker Tobacco Type: Cigarettes packs per day: 2; Cigarettes Per Day: 2.5; Second Hand Exposure: Yes; Do You Dip or Chew Tobacco: Yes; Tobacco Cessation Education Requested by Patient: Yes Hx Alcohol Use: No (pt quit in 1976) Hx Substance Use: Yes Last Used Substance: Days (ago) Last Used Substance Other:: 04/18/2022 Substance Use Type Other:: MEDICAL MARIJUANA CARD-INH Q 1-2 DAYS PRN FOR NAUSEA Preferred Language: Vietnamese Communication Ability: Effective Communication Ability Comment: very SYCUAN Visual Impairment: No Limitations Hearing Ability: Normal Mechanical Technician Required: No Beliefs That Will Affect Care: Yazdanism Yazdanism Beliefs: SAMARITAN marital status: Current Living Situation: Spouse Current Living Situation Comment: Helen Carroll current occupational status: retired 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 How many Children do You have: 1 Feels Safe at Home: Yes Safety Concerns: Feels Safe At This Time Childhood Exposure to Second-Hand Smoke: No Diet Comment: "go low" during the past year weight has: decreased > 10 lbs Dental Care, Regularly: Yes Physical Activity Frequency: 1-2 Times per Week Seatbelt Use: always Sunscreen Use: No Assistive Devices: Denture - Upper, Denture - Lower, Glasses, Hearing Aid - Bilateral and Walker Allergies Allergies Allergy/AdvReac Type Severity Reaction Status Date / Time No Known Drug Allergies Allergy nkda Verified 12/26/22 13:00 Home Meds Home Medications Medication Instructions Recorded Confirmed cyanocobalamin (vitamin B-12) 5,000 mcg PO QPM 11/13/18 12/30/22 5,000 mcg capsule multivitamin 1 tab PO DAILY 03/04/19 12/30/22 krill oil 500 mg capsule 500 mg PO QPM PRN Dry Eye(S) 07/18/21 12/30/22 furosemide 20 mg tablet (Lasix) 20 mg PO BID 12/18/22 12/30/22 cholestyramine-aspartame 4 gram 4 g PO BIDWMEAL 12/20/22 12/30/22 oral powder for susp in a packet apixaban 5 mg tablet (Eliquis) 5 mg PO BID 12/30/22 12/30/22 liraglutide 0.6 mg/0.1 mL (18 mg/3 1.2 mg subcut QAM 12/30/22 12/30/22 mL) subcutaneous pen injector (Nanalysis 2-Ronen) silver sulfadiazine 1 % topical 1 applic topical DAILY PRN Wound 12/30/22 12/30/22 cream (Silvadene) Care Previous Rx's Medication Instructions Recorded BiPap Machine #1 ea 05/23/22 carvedilol 12.5 mg tablet 12.5 mg PO BID #180 tabs 09/15/22 tamsulosin 0.4 mg capsule 0.4 mg PO HS #30 caps 09/19/22 pen needle,diabetic dual safty 30 #100 ea 10/06/22 gauge x 3/16" (BD AutoShield Duo Pen Needle) Results & Data (ED) Vital Signs Vital Signs - 24 hr 12/30/22 10:29 12/30/22 11:10 12/30/22 11:52 Temperature 36.6 C Temperature Source Temporal Artery Scan Pulse Rate 95 H 80 Pulse Rate [Apical] 80 Pulse Rhythm [Apical] Regular Respiratory Rate 16 16 Respiratory Effort / Characteristics Non-Labored Non-Labored Respiratory Depth Normal Normal Respiratory Pattern Regular Blood Pressure 71/42 L Blood Pressure [Right Arm] 87/52 L Blood Pressure Mean 51 Blood Pressure Mean [Right Arm] 63 Blood Pressure Position Sitting Pulse Oximetry 100 100 Oxygen Delivery Method Room Air Room Air Sepsis Recent Fever Within 48 Hours No Sepsis New/Unexplained Change in Mental Status No Sepsis Action Taken by Nursing No Action Required 12/30/22 12:15 12/30/22 13:00 Temperature Temperature Source Pulse Rate Pulse Rate [Apical] 81 80 Pulse Rhythm [Apical] Regular Respiratory Rate 16 16 Respiratory Effort / Characteristics Non-Labored Spontaneous Non-Labored Respiratory Depth Normal Normal Respiratory Pattern Blood Pressure Blood Pressure [Right Arm] 91/59 L 91/61 L Blood Pressure Mean Blood Pressure Mean [Right Arm] 69 71 Blood Pressure Position Pulse Oximetry 97 100 Oxygen Delivery Method Room Air Room Air Sepsis Recent Fever Within 48 Hours Sepsis New/Unexplained Change in Mental Status Sepsis Action Taken by Nursing Laboratory Data 12/30/22 10:52 12/30/22 10:52 Lab Results 12/30/22 12/30/22 12/30/22 Range/Units 10:52 10:52 10:52 WBC 4.13 L (4.8-10.8) K/ul RBC 2.45 L (4.70-6.10) M/uL Hgb 8.3 L (14.0-18.0) g/dl Hct 25.2 L (42.0-52.0) % MCV 102.9 H (80.0-100.0) fL MCH 33.9 (25.0-34.0) pg MCHC 32.9 (32.0-36.0) g/dL RDW Std Deviation 61.0 H (36.4-46.3) fL RDW Coeff of David 16.9 H (11.5-14.5) % Plt Count 71 L (130-400) K/uL MPV 13.7 H (9.4-12.4) fL Immature Gran % (Auto) 0.5 % Neut % (Auto) 58.0 % Lymph % (Auto) 24.0 % [place] % (Auto) 14.8 % Eos % (Auto) 2.2 % Baso % (Auto) 0.5 % Neut # (Auto) 2.40 (1.40-6.50) K/uL Lymph # (Auto) 0.99 L (1.2-3.4) K/uL [place] # (Auto) 0.61 H (0.11-0.59) K/uL Eos # (Auto) 0.09 (0-0.50) K/uL Baso # (Auto) 0.02 (0-0.2) K/uL Immature Gran # (Auto) 0.02 (0.01-0.20) K/uL Absolute Nucleated RBC 0.02 (0-0.12) K/uL Nucleated RBC % (auto) 0.5 % ESR (0-20) mm/hr Sodium 131 L (136-145) mmol/L Potassium 4.4 (3.5-5.1) mmol/L Chloride 107 (98-107) mmol/L Carbon Dioxide 17 L (21-32) mmol/L Anion Gap 7 (3-11) BUN 24 H (6-23) mg/dl Creatinine 1.50 H (0.6-1.4) mg/dl Est Cr Clr Drug Dosing 39.4 ml/min Est GFR ( Amer) 49.9 ml/min Est GFR (Non-Af Amer) 43.0 ml/min BUN/Creatinine Ratio 16.0 (10-20) Glucose 207 H (70-99(Fasting)) mg/dl Lactate (0.4-2.0) mmol/L Calcium 8.1 L (8.6-10.3) mg/dl Total Bilirubin 0.7 (0.2-1.0) mg/dl AST 13 (13-39) U/L ALT 6 L (7-52) U/L Alkaline Phosphatase 60 (34-104) U/L C-Reactive Protein 1.08 H (0-0.5) mg/dl Total Protein 5.9 L (6.0-8.3) gm/dl Albumin 2.8 L (3.4-5.0) gm/dl Globulin 3.1 (2.5-4.0) gm/dl Albumin/Globulin Ratio 0.9 (0.9-2) Procalcitonin < 0.05 (0-0.5) ng/ml SARS-CoV-2, RNA, NAAT (NEGATIVE) 12/30/22 12/30/22 12/30/22 Range/Units 10:52 10:52 13:22 WBC (4.8-10.8) K/ul RBC (4.70-6.10) M/uL Hgb (14.0-18.0) g/dl Hct (42.0-52.0) % MCV (80.0-100.0) fL MCH (25.0-34.0) pg MCHC (32.0-36.0) g/dL RDW Std Deviation (36.4-46.3) fL RDW Coeff of David (11.5-14.5) % Plt Count (130-400) K/uL MPV (9.4-12.4) fL Immature Gran % (Auto) % Neut % (Auto) % Lymph % (Auto) % [place] % (Auto) % Eos % (Auto) % Baso % (Auto) % Neut # (Auto) (1.40-6.50) K/uL Lymph # (Auto) (1.2-3.4) K/uL [place] # (Auto) (0.11-0.59) K/uL Eos # (Auto) (0-0.50) K/uL Baso # (Auto) (0-0.2) K/uL Immature Gran # (Auto) (0.01-0.20) K/uL Absolute Nucleated RBC (0-0.12) K/uL Nucleated RBC % (auto) % ESR 5 (0-20) mm/hr Sodium (136-145) mmol/L Potassium (3.5-5.1) mmol/L Chloride (98-107) mmol/L Carbon Dioxide (21-32) mmol/L Anion Gap (3-11) BUN (6-23) mg/dl Creatinine (0.6-1.4) mg/dl Est Cr Clr Drug Dosing ml/min Est GFR ( Amer) ml/min Est GFR (Non-Af Amer) ml/min BUN/Creatinine Ratio (10-20) Glucose (70-99(Fasting)) mg/dl Lactate 4.3 H* 2.3 H* (0.4-2.0) mmol/L Calcium (8.6-10.3) mg/dl Total Bilirubin (0.2-1.0) mg/dl AST (13-39) U/L ALT (7-52) U/L Alkaline Phosphatase (34-104) U/L C-Reactive Protein (0-0.5) mg/dl Total Protein (6.0-8.3) gm/dl Albumin (3.4-5.0) gm/dl Globulin (2.5-4.0) gm/dl Albumin/Globulin Ratio (0.9-2) Procalcitonin (0-0.5) ng/ml SARS-CoV-2, RNA, NAAT (NEGATIVE) 12/30/22 Range/Units 13:23 WBC (4.8-10.8) K/ul RBC (4.70-6.10) M/uL Hgb (14.0-18.0) g/dl Hct (42.0-52.0) % MCV (80.0-100.0) fL MCH (25.0-34.0) pg MCHC (32.0-36.0) g/dL RDW Std Deviation (36.4-46.3) fL RDW Coeff of Dvaid (11.5-14.5) % Plt Count (130-400) K/uL MPV (9.4-12.4) fL Immature Gran % (Auto) % Neut % (Auto) % Lymph % (Auto) % [place] % (Auto) % Eos % (Auto) % Baso % (Auto) % Neut # (Auto) (1.40-6.50) K/uL Lymph # (Auto) (1.2-3.4) K/uL [place] # (Auto) (0.11-0.59) K/uL Eos # (Auto) (0-0.50) K/uL Baso # (Auto) (0-0.2) K/uL Immature Gran # (Auto) (0.01-0.20) K/uL Absolute Nucleated RBC (0-0.12) K/uL Nucleated RBC % (auto) % ESR (0-20) mm/hr Sodium (136-145) mmol/L Potassium (3.5-5.1) mmol/L Chloride (98-107) mmol/L Carbon Dioxide (21-32) mmol/L Anion Gap (3-11) BUN (6-23) mg/dl Creatinine (0.6-1.4) mg/dl Est Cr Clr Drug Dosing ml/min Est GFR ( Amer) ml/min Est GFR (Non-Af Amer) ml/min BUN/Creatinine Ratio (10-20) Glucose (70-99(Fasting)) mg/dl Lactate (0.4-2.0) mmol/L Calcium (8.6-10.3) mg/dl Total Bilirubin (0.2-1.0) mg/dl AST (13-39) U/L ALT (7-52) U/L Alkaline Phosphatase (34-104) U/L C-Reactive Protein (0-0.5) mg/dl Total Protein (6.0-8.3) gm/dl Albumin (3.4-5.0) gm/dl Globulin (2.5-4.0) gm/dl Albumin/Globulin Ratio (0.9-2) Procalcitonin (0-0.5) ng/ml SARS-CoV-2, RNA, NAAT NEGATIVE (NEGATIVE) Administered Medications Acetaminophen (Acetaminophen 325 Mg Tab) 650 mg PO Q4H PRN PRN Reason: Pain or Fever Stop: 01/29/23 16:45 Last Admin: 12/31/22 01:08 Dose: 650 mg Documented By: Admin: 12/30/22 21:03 Dose: 650 mg Documented By: MADELINE Apixaban (Apixaban 5 Mg Tablet) 5 mg PO BID [facility] Stop: 01/29/23 20:59 Last Admin: 12/31/22 08:15 Dose: 5 mg Documented By: Admin: 12/30/22 20:18 Dose: 5 mg Documented By: MADELINE Carvedilol (Carvedilol 12.5 Mg Tab) 12.5 mg PO BIDM JANEEN Stop: 01/29/23 16:59 Last Admin: 12/31/22 08:16 Dose: Not Given Documented By: GENohelia Admin: 12/30/22 17:38 Dose: Not Given Documented By: MARISSA Cholestyramine Resin (Cholestyramine Light 4 Gm Pkt) 4 gm PO 0900,2000 JANEEN Stop: 01/29/23 19:59 Last Admin: 12/31/22 08:17 Dose: 4 gm Documented By: Admin: 12/30/22 19:06 Dose: 4 gm Documented By: MADELINE Cyanocobalamin (Cyanocobalamin (B-12) 2,500 Mcg Tablet) 5,000 mcg PO QPM JANEEN Stop: 01/29/23 20:59 Last Admin: 12/30/22 20:18 Dose: 5,000 mcg Documented By: MADELINE Daptomycin 300 mg/ Syringe 6 mls @ 3 mls/min IV Q24H JANEEN; Protocol Stop: 01/01/23 12:44 Last Admin: 12/30/22 14:44 Dose: 3 mls/min Documented By: GAURANG Insulin Aspart (Insulin Aspart Per Unit Charge) 0 units SC ACHS JANEEN Stop: 01/29/23 16:45 Last Admin: 12/31/22 08:14 Dose: 9 units Documented By: KYLEE Co-signed By: ELEN Admin: 12/30/22 20:19 Dose: Not Given Documented By: Admin: 12/30/22 17:33 Dose: 6 units Documented By: MARISSA Co-signed By: LUH Miscellaneous (Liraglutide: Order Awaiting Action) 1 each N/A QS [facility] Stop: 01/30/23 00:00 Last Admin: 12/31/22 08:23 Dose: Not Given Documented By: Admin: 12/30/22 23:21 Dose: Not Given Documented By: MADELINE Multivitamins (Multivitamin Tab) 1 tab PO QAM [facility] Stop: 01/30/23 08:59 Last Admin: 12/31/22 08:15 Dose: 1 tab Documented By: KYLEE Tamsulosin HCl (Tamsulosin Hcl 0.4 Mg Cap) 0.4 mg PO HS [facility] Stop: 01/29/23 20:59 Last Admin: 12/30/22 20:19 Dose: 0.4 mg Documented By: MADELINE Discontinued Medications Bacitracin (Bacitracin Oint 15 Gm Tube) 1 appln EXT NOW ONE Stop: 12/30/22 11:14 Last Admin: 12/30/22 11:23 Dose: 1 appln Documented By: GAURANG Cefepime HCl (Maxipime) 2,000 mg in 20 mls @ 5 mls/min IV NOW STA; Protocol Stop: 12/30/22 11:16 Last Admin: 12/30/22 11:22 Dose: 5 mls/min Documented By: GAURANG Sodium Chloride (Nss 1000ml) 1,000 mls @ 999 mls/hr IV .Q1H1M ONE Stop: 12/30/22 12:15 Last Infusion: 12/30/22 13:55 Dose: 0 mls/hr Documented By: Admin: 12/30/22 11:22 Dose: 999 mls/hr Documented By: GAURANG Sodium Chloride (Nss 1000ml) 500 mls @ 999 mls/hr IV .Q31M ONE Stop: 12/30/22 13:04 Last Infusion: 12/30/22 16:28 Dose: 0 mls/hr Documented By: Admin: 12/30/22 14:44 Dose: 999 mls/hr Documented By: GAURANG Discharge Plan Visit Data Chief Complaint: Leg Injury/Pain Stated Complaint: L LEG PAIN ED Provider: Tony Sher Discharge Problem: Cellulitis, High serum lactate, Acute hypotension Patient Disposition: Admitted As Inpatient Discharge Instructions Interventions: ED Discharge Assessment Last Done: 12/30/22 16:29
[2022-12-30] MEDS: DAPTOmycin 300 MG in SYRINGE 0 ML IV SCH (14:44)
[2022-12-30] MEDS ORDERED: SILVER SULFADIAZINE 1% CR 50 GM JAR TOP PRN (16:46)
[2022-12-30] MEDS ORDERED: ALUMINUM/MAGNESIUM SUSP 30 ML UDC PO PRN (16:46)
[2022-12-30] MEDS ORDERED: GLUCOSE 10 TAB/TUBE PO PRN (16:46)
[2022-12-30] MEDS ORDERED: GLUCOSE 40% GEL 15 GM TUBE PO PRN (16:46)
[2022-12-30] MEDS ORDERED: MAGNESIUM HYDROXIDE SUSP 30 ML UDC PO PRN (16:46)
[2022-12-30] MEDS ORDERED: DEXTROSE 50% 50 ML SYRINGE IV PRN (16:46)
[2022-12-30] MEDS ORDERED: GLUCAGON FOR INJ 1 MG VIAL SQ PRN (16:46)
[2022-12-30] MEDS ORDERED: NON-FORMULARY MEDICATION (Krill Oil 500 mg capsule) PO PRN (16:46)
[2022-12-30] MEDS: INSULIN ASPART PER UNIT CHARGE SC SCH ×2 (17:33→20:19)
[2022-12-30] MEDS: carvediloL 12.5 MG TAB PO SCH (17:38)
[2022-12-30 17:42] LABS: BUN Creatinine Ratio 18.8 (10-20); Calcium 7.7 mg/dl (8.6-10.3); Creatinine Clr Calc Pharmacy 53.8 ml/min; Est GFR (Non-African American) 61.3 ml/min; Potassium 4.2 mmol/L (3.5-5.1)
[2022-12-30] MEDS: CHOLESTYRAMINE LIGHT 4 GM PKT PO SCH (19:06)
[2022-12-30] MEDS: APIXABAN 5 MG TABLET PO SCH (20:18)
[2022-12-30] MEDS: CYANOCOBALAMIN (B-12) 2,500 MCG TABLET PO SCH (20:18)
[2022-12-30] MEDS: TAMSULOSIN HCL 0.4 MG CAP PO SCH (20:19)
[2022-12-30] MEDS: ACETAMINOPHEN 325 MG TAB PO PRN (21:03)
[2022-12-31] MEDS: ACETAMINOPHEN 325 MG TAB PO PRN ×2 (01:08→20:57)
[2022-12-31 06:49] LABS: Hematocrit (blood only) 24.7 % (42.0-52.0); Hemoglobin 8.2 g/dl (14.0-18.0); Mean Corpuscular Hemoglobin 33.7 pg (25.0-34.0); Mean Corpuscular Hgb Conc 33.2 g/dL (32.0-36.0); Mean Corpuscular Volume 101.6 fL (80.0-100.0); Mean Platelet Volume 13.3 fL (9.4-12.4); Platelet Count 61 K/uL (130-400); RDW Coefficient of Variation 16.9 % (11.5-14.5); RDW Standard Deviation 61.1 fL (36.4-46.3); Red Blood Count 2.43 M/uL (4.70-6.10); White Blood Count 3.63 K/ul (4.8-10.8)
[2022-12-31 07:14] LABS: BUN Creatinine Ratio 16.8 (10-20); C Reactive Protein 1.11 mg/dl (0-0.5); Calcium 7.7 mg/dl (8.6-10.3); Creatinine Clr Calc Pharmacy 49.1 ml/min; Est GFR (African American) 62.2 ml/min; Est GFR (Non-African American) 53.7 ml/min; Magnesium 1.9 mg/dl (1.7-2.4); Potassium 4.1 mmol/L (3.5-5.1)
--- NOTE | 2022-12-31 07:21 | Electrocardiogram Report ---
Test Reason : Blood Pressure : / mmHG Vent. Rate : 080 BPM Atrial Rate : 094 BPM P-R Int : 000 ms QRS Dur : 168 ms QT Int : 486 ms P-R-T Axes : 000 -79 097 degrees QTc Int : 560 ms Ventricular-paced rhythm Abnormal ECG When compared with ECG of 14-AUG-2022 21:00, No significant change was found Confirmed by Lalit Lisa ([id number]) on 12/31/2022 7:21:06 AM Referred By: REFERRED SELF Confirmed By:Cody Lisa
--- NOTE | 2022-12-31 07:54 | Hospitalist Progress Note ---
Date of Service December 31, 2022 Assessment & Plan (1) Cellulitis of left lower extremity: Plan: Pt is an 82 yo male with complex PMH including afib, BPH, testicular cancer in current chemo tx, CAD s/p CABG (1998), HLD, and CKDpresenting with worsening left lower extremity cellulitis. He was recently seen in the ED 12/22/2022 with similar complaints. Left lower extremity cellulitis - afebrile, no leukocytosis, CRP slightly elevated - MRSA nares neg; blood cx neg - s/p cefepime x1, bacitracin x1, daptomycin x2, and ceftriaxone x1 - in the setting of a stable patient, narrow ABX to keflex 500 mg QID for at least 5 days - wound care consulted Chronic hypotension - systolic blood pressure typically runs 80s-90s - Low BP on arrival at 71/42; corrected to baseline after 500 cc NSS; has been stable since - continue to monitor High serum lactate - Most likely multifactorial in the setting of acute infection, CKD - improved from 4.3-2.3 with 1 L fluid Hyponatremia - sodium level 131 upon admission; baseline sodium is closer to 140 - improving, continue to monitor Obstructive sleep apnea - patient follows with sleep disorder clinic and was most recently seen in May 2022 - Continue BiPAP Paroxysmal ventricular tachycardia/Atrial fibrillation - follows with Dr. 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/2022) - currently receiving radiation therapy - pt has routine paracentesis approximately every 10 days; most recent paracentesis performed 12/28/2022; no hx of SBP Prolonged QT interval - EKG with QTc of 571 ms; avoid QT prolonging agents BPH - continue tamsulosin CKD - Cr 1.5 upon admission, which is at his baseline - continue to monitor Diabetes mellitus - continue the patient's Victoza injection subcutaneously every morning - pt also on sliding scale insulin - most recent hemoglobin A1c is 5.8%; repeat A1c pending (2) High serum lactate: (3) Paroxysmal ventricular tachycardia: (4) SHARON (acute kidney injury): (5) Anemia: (6) Lymphadenopathy, abdominal: (7) Diabetes mellitus, type 2: (8) Prolonged QT interval: (9) Testicular cancer: Plan Fluids, electrolytes: none Diet: heart healthy, carb consistent DVT ppx: eliquis 5 mg BID Consults: wound care PT/OT: no Dispo: med/surg Code status: DNR/DNI Admission and Anticipated Discharge Date Admission Date: December 30, 2022 Supervising Physician Co-Signing Physician Notes I personally examined the patient and verified all lawrence points of history and exam, discussed case, and agree with decision making with Dr Elmore Legs feeling a lot better. Notes that his blood pressure always runs low. Has radiation therapy tomorrow at 4:00. Vitals noted, in general he is awake and alert pleasant no distress. HEENT norm ocephalic atraumatic mucous membranes moist. Breathing unlabored no accessory muscle use good effort. Left lower extremity with large area where blister was with deeper skin appearing red but overall healthy, no real tracking erythema or exudate. CBC, BMP noted. Left lower extremity cellulitisin the absence of severe sepsis/septic shocktransition to first generation cephalosporin. If he is doing well on this, probably home tomorrow. Of notefor multiple counts I believe his low blood pressures are his baseline: He notes that he typically runs like this, he is totally asymptomatic from hypotension, he is not tachycardic, his mean arterial pressures are perfusing, his creatinine is near his baseline, and nothing else about his situation appears consistent with sepsis. Testicular cancerradiation treatment tomorrow at 4 PM. I discussed with the way his leg is looking there is a high probability that we will be out again about at the hospital tomorrowin which case the plan would probably be to discharge him and then have him go over for his radiation treatment appointment prior to going home. On the off chance that he does require prolonged inpatient stay, we can inform radiation oncology of his presenceas his current infection would certainly not be a contraindication for treatment. Subjective Pt seen at bedside. He is feeling much better than yesterday. He denies pain in his left leg. He denies fevers, chills, chest pain, N/V, SOB, and leg pains. Review of Systems Review of Systems: All systems reviewed & are unremarkable except as noted in HPI & below Physical Exam Physical Exam: Constitutional: cachectic, chronically ill appearing, no acute distress HEENT: normocephalic, no conjunctival injection CV: RRR, no murmur, bilateral 2+ pitting LE edema from feet to mid calf Respiratory: CTA bilaterally. No rhonchi, wheezes, or crackles. No increased work of breathing MSK: no gross deformities noted Skin: warm, dry. Brawny induration of bilateral LE. Wound of left lower leg covered and dry. Neuro: alert, oriented, no FND noted Psych: mood and affect congruent Results & Data Results & Data Vital Signs (Past 12 Hours) Vital Signs Temp Pulse Pulse Resp BP Pulse Ox O2 Del Method 12/31/22 07:08 80 12/31/22 04:43 36.5 C 80 20 102/65 97 Room Air 12/30/22 23:42 36.5 C 80 20 94/62 L 99 Room Air 12/30/22 23:36 94 H 26 H 99 12/30/22 22:56 80 FiO2 12/31/22 07:08 12/31/22 04:43 12/30/22 23:42 12/30/22 23:36 21 12/30/22 22:56 Resident Activity Tracking Resident Involvement: Resident Care Provided Care Provided: Adult Hospital Medicine (5) Anemia Anemia type: unspecified type Qualified Code(s): D64.9 - Anemia, unspecified
[2022-12-31] MEDS: INSULIN ASPART PER UNIT CHARGE SC SCH ×3 (08:14→17:24)
[2022-12-31] MEDS: MULTIVITAMIN TAB PO SCH (08:15)
[2022-12-31] MEDS: APIXABAN 5 MG TABLET PO SCH ×2 (08:15→20:52)
[2022-12-31] MEDS: carvediloL 12.5 MG TAB PO SCH ×2 (08:16→17:59)
[2022-12-31] MEDS: CHOLESTYRAMINE LIGHT 4 GM PKT PO SCH ×2 (08:17→19:35)
[2022-12-31] MEDS ORDERED: cefTRIAXone SODIUM 2,000 MG in DEXTROSE 5% 50 ML IV SCH (09:00)
[2022-12-31] MEDS: HEPARIN 100 UNIT/ML 5ML FLUSH FLUSH PRN ×2 (11:38→13:08)
[2022-12-31] MEDS: DAPTOmycin 300 MG in SYRINGE 0 ML IV SCH (13:08)
[2022-12-31] MEDS: CARBOHYDRATES FOR HYPOGLYCEMIA PO PRN ×3 (16:32→17:35)
--- NOTE | 2022-12-31 17:33 | Billing Data ---
Date of Service December 31, 2022 Coding Level of Care Code 41086 SUB INP/OBS CARE MIN
[2022-12-31] MEDS: CYANOCOBALAMIN (B-12) 2,500 MCG TABLET PO SCH (20:52)
[2022-12-31] MEDS: TAMSULOSIN HCL 0.4 MG CAP PO SCH (20:53)
[2023-01-01] MEDS: ACETAMINOPHEN 325 MG TAB PO PRN (02:48)
[2023-01-01 08:10] LABS: Hematocrit (blood only) 25.6 % (42.0-52.0); Hemoglobin 8.4 g/dl (14.0-18.0); Mean Corpuscular Hemoglobin 33.2 pg (25.0-34.0); Mean Corpuscular Hgb Conc 32.8 g/dL (32.0-36.0); Mean Corpuscular Volume 101.2 fL (80.0-100.0); Mean Platelet Volume 12.4 fL (9.4-12.4); Platelet Count 65 K/uL (130-400); RDW Coefficient of Variation 16.9 % (11.5-14.5); Red Blood Count 2.53 M/uL (4.70-6.10); White Blood Count 3.74 K/ul (4.8-10.8)
[2023-01-01] MEDS: cephALEXin 500 MG CAP PO SCH ×2 (08:15→12:16)
[2023-01-01] MEDS: MULTIVITAMIN TAB PO SCH (08:15)
[2023-01-01] MEDS: carvediloL 12.5 MG TAB PO SCH (08:15)
[2023-01-01] MEDS: CHOLESTYRAMINE LIGHT 4 GM PKT PO SCH (08:16)
[2023-01-01 08:34] LABS: Estimated Average Glucose 117 mg/dl; Hemoglobin A1C 5.7 % (4.5-5.6)
[2023-01-01] MEDS: APIXABAN 5 MG TABLET PO SCH (08:41)
--- NOTE | 2023-01-01 09:42 | Discharge Summary ---
Date of Service January 01, 2023 Admission HPI Per Admitting Provider attending: Dr. Moy this is an 82-year-old male that presents with left lower extremity cellulitis. He had previously been seen by the emergency department on where he had a large bullae that was popped. Underlying tissue at that time was reported to be not concerning for infection. He was not discharged on antibiotics and instructed to report with his PCP. Patient did well until this morning when his noticed that the area seemed to be much more red and warm to touch. There was also a significant amount of purulence. Patient was brought to the emergency department evaluated by the ER physician who agreed that the areas seem to be more purulent and concerning for infection. Patient's procalcitonin was negative. However, patient's lactic acid was elevated at 4.3 and his C-reactive protein was 1.08. Patient was given IV fluid, cefepime, daptomycin. Although the patient did have a lower than usual blood pressure, he typically has a systolic pressure between 88 and 93. Consequently, he was not given a fluid challenge as this did not appear to be sepsis. After the first liter of fluid, the lactic acid dropped to 2.3. Patient had no hypoxia, no fever, no diaphoresis, and no rigors. Concern was limited to the left lower extremity cellulitis. Patient does have a complicated past medical history including recurrent testicular cancer for which he is receiving salvage radiation therapy. Patient has cirrhosis and typically has paracentesis every 10 days. His most recent paracentesis was on 12/28/2022 with 4.5 L evacuated. Patient has no history of SBP. Patient also has had an EGD in the past which failed to show any evidence of esophageal varices. He does follow regularly with gastroenterology. Regarding the patient's retroperitoneal adenopathy, this is secondary to recurrent testicular mixed cell carcinoma. 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 twice daily. He denies any history of DVT or pulmonary emboli. Patient denies any chest pain or tightness. He is not aware of any cardiac arrhythmias. He does have history of paroxysmal atrial fibrillation, placement of implanted ICD, prolonged QTc of 571 ms, CHF/CAD with Lasix 20 mg p.o. twice daily and carvedilol for treatment. As previously mentioned the patient has a relatively low blood pressure as a rule. Currently blood pressure is 91/59 patient has a history of obstructive sleep apnea and follows with the sleep disorder clinic. He is on BiPAP therapy at home at 08/25. he most recently saw Winnie Cobb PA-C in May 2022. He reports compliance with his BiPAP. Patient also reports diabetes mellitus. He is on liraglutide once daily with no insulin use. Patient reports that he does have an advanced directive and states that he would be a DNR/DNI with no heroics. Case reviewed with Dr. Moy. Patient will be admitted to the [facility] telemetry unit for IV antibiotics and monitoring of blood pressure, lactic acid, CRP. Admission Exam Per Admitting Provider GENERAL : No acute distress EYES: No icterus, gaze conjugate NOSE: No evidence of epistaxis MOUTH: No lesions or candidiasis NECK: Supple LUNGS: CTA B/L, no wheezes, rales or rhonchi. Good inspiratory effort CHEST: Mediport placed in the right subclavicular region and is currently accessed. HEART: Regular, rate controlled ABDOMEN: Soft, NT, ND, BS Present EXTREMITIES: Trace bilateral symmetrical LE edema, pedal pulses intact and equal bilaterally. Dressing taken down from the left rivas area. Wound is open and appears to have good granulomatous tissue. It is red and inflamed and warm. There is some minimal erythema around the area. It is tender to light palpation. Dressing that was removed had yellow purulent secretions on it. Secretions were adequately contained by the dressing. NEURO: A&OX3. Hard of hearing. No other focal deficits appreciated Principal Diagnosis LLE Cellulitis Discharge Exam Constitutional: cachectic, chronically ill, no acute distress HEENT: normocephalic, no conjunctival injection CV: RRR, no murmur, bilateral 2+ pitting LE edema from feet to mid calf Respiratory: CTA bilaterally. No rhonchi, wheezes, or crackles. No increased work of breathing MSK: No gross deformities noted Skin: warm, dry. Brawny induration of bilateral LE. Wound of left lower leg covered and dry, no surrounding erythema. - Wound clean, w/o purulence, draining scant serous fluid (per wound care/nursing) Neuro: alert, oriented, no FND noted Psych: mood and affect congruent Discharge Data Allergies Allergy/AdvReac Type Severity Reaction Status Date / Time No Known Drug Allergies Allergy nkda Verified 12/26/22 13:00 Consultations 12/30/22 13:59 ED Decision to Admit Stat Hospital Course (1) Cellulitis of left lower extremity: Pt is an 82 yo male with complex PMH including afib, BPH, testicular cancer in current radiation tx, CAD s/p CABG (1998), HLD, and CKDpresenting with worsening left lower extremity cellulitis. He was recently seen in the ED 12/22/2022 with similar complaints. Left lower extremity cellulitis - afebrile, no leukocytosis, CRP slightly elevated - MRSA nares neg; blood cx neg - s/p cefepime x1, bacitracin x1, daptomycin x2, and ceftriaxone x1 - in the setting of a stable patient, narrow ABX to keflex 500 mg QID for at least 5 days - wound care consulted --- Continue home wound care, keep area clean and dry --- Continue Keflex 500 mg PO QID for 4 more days upon discharge, Rx sent Chronic hypotension - systolic blood pressure typically runs 80s-90s - Low BP on arrival at 71/42; corrected to baseline after 500 cc NSS; has been stable since - continue to monitor --- Stable at discharge, patient's diuretic held on admission d/t hypotension, will restart upon discharge High serum lactate - Most likely multifactorial in the setting of acute infection, CKD - improved from 4.3-2.3 with 1 L fluid Hyponatremia - sodium level 131 upon admission; baseline sodium is closer to 140 - improving, continue to monitor --- Slight improvement to 132, stable for discharge, patient asymptomatic --- Recommending BMP check 1 week after discharge --- Encouraged adequate PO intake Obstructive sleep apnea - patient follows with sleep disorder clinic and was most recently seen in May 2022 - Continue BiPAP Paroxysmal ventricular tachycardia/Atrial fibrillation - follows with Dr. 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/2022) - currently receiving radiation therapy - pt has routine paracentesis approximately every 10 days; most recent paracentesis performed 12/28/2022; no hx of SBP Prolonged QT interval - EKG with QTc of 571 ms; avoid QT prolonging agents BPH - continue tamsulosin CKD - Cr 1.5 upon admission, which is at his baseline - continue to monitor Diabetes mellitus - continue the patient's Victoza injection subcutaneously every morning - pt also on sliding scale insulin - most recent hemoglobin A1c is 5.8%; repeat A1c pending --- Repeat A1c 5.7, continue Victoza at this time, discuss with PCP given age and well controlled A1c (2) High serum lactate: (3) Paroxysmal ventricular tachycardia: (4) SHARON (acute kidney injury): (5) Anemia: (6) Lymphadenopathy, abdominal: (7) Diabetes mellitus, type 2: (8) Prolonged QT interval: (9) Testicular cancer: Plan Diet: heart healthy, carb consistent DVT ppx: Eliquis 5 mg BID Consults: Wound care PT/OT: None Dispo: Home w/ spouse Code status: DNR/DNI Total Time Total Time Spent Total Time Spent (In Minutes): 30 mins seeing patient, reviewing data, and docmentation Discharge Plan Discharge Items Patient Disposition: Home - Self-Care Reason For Visit: L LEG PAIN Discharge Diagnosis: LLE Cellulitis Activity: Resume your previous activity Non-emergency contact: Primary Care Provider Call non-emergency contact if: you have any medication questions, your pain is not controlled, your rectal temperature is above 100.4 and your wound has in creased drainage Follow-up/Referrals: Josafat Kohler, [Primary Care Provider] - 01/08/23 9:20 am Diet: Regular Addtl Attending Provider Instructions: You were admitted to the hospital for left leg cellulitis (which is an infection of the top layer of your skin). When you presented to the hospital, your lower extremity wound was draining purulent (pus filled) fluid. You were admitted for management and received antibiotics. You will be sent home on oral antibiotics (Keflex) that you will continue for the next 4 days. Please continue to keep the wound clean and dry when you are home. Your chronic medical history was discussed during your admission, following our inpatient discussion it was recommended that you re-start your home dose of Lasix for symptomatic improvement of your lower extremity swelling, this was briefly stopped on admission due to hypotension (low blood pressure) in the ED. You will be discharged today to continue your radiation therapy as an outpatient. A discharge summary will be sent to your primary care physician to ensure continuity of care. Please bring this discharge summary with you to your next office appointment so that your provider can review it at that time. Follow-up appointments: - Make a follow-up appointment with your PCP within the next week. It is very important that you follow up with them shortly after discharge from the hospital. We have requested a follow-up appointment with your primary care physician within one week of discharge. Please call their office if you do not hear from them. - Recommending BMP (lab work) one week following discharge, follow with PCP Medications: - Your medication list has been reviewed and reconciled upon discharge to ensure accuracy and continuity of care. An updated list of all your medications is included with your hospital discharge paperwork. Please review this list closely, and make note of any changes. - We sent a new medication called Cephalexin (Keflex). Please take 500 mg four times a day for the next 4 days. - Take your medications as instructed; do not skip a dose of your medicines. Make sure all of your doctors know every medicine you are taking (including wiaf-[id number] medicines, vitamins, and supplements). - Call your primary care provider before taking any new medicines (including over- the-counter medicines, vitamins, and supplements), because some of these may interact with your current medications, or may make your symptoms worse. - Tell your primary care provider if you cannot afford your medications. Contact your Primary Care Provider if you experience: - Worsening redness of your lower extremity - Increased drainage from your wound - Difficulty following your treatment plan or taking medications Call 911 or go to the emergency department if you experience: - Sudden, severe abdominal pain or nausea/vomiting - Severe chest pain, or chest pain that radiates (moves) to your jaw or arm - Sudden, severe shortness of breath or difficulty breathing It was a pleasure to be a part of your care, Dr. Ry Bal Pending Studies at Discharge: No Stand-Alone Forms: My mydeco, Smoking Cessation Medications and DC Order Prescriptions: New cephalexin 500 mg Capsule 500 mg PO QID 4 Days Qty: 16 0RF Continued carvedilol 12.5 mg tablet 12.5 mg PO BID Qty: 180 3RF Rx Instructions: must administer with a meal/food tamsulosin 0.4 mg capsule 0.4 mg PO HS Qty: 30 5RF (DME) BD AutoShield Duo Pen Needle 30 gauge x 3/16" needle See Rx Instructions .ROUTE .MEDSUPPLY Qty: 100 1RF Rx Instructions: Use once daily to inject Victoza. DX E11.22 (DME) BiPap Machine Misc See Rx Instructions .MEDSUPPLY Qty: 1 0RF Rx Instructions: BIPAP 08/25 with heated humidification, tubing, and supplies. JANNIE: 99+ years. cyanocobalamin (vitamin B-12) 5,000 mcg Capsule 5,000 mcg PO QPM Rx Instructions: @ lunch multivitamin tablet 1 tab PO DAILY Patient Comments: lunch time krill oil 500 mg capsule 500 mg PO QPM PRN (Reason: Dry Eye(S)) silver sulfadiazine [Silvadene] 1 % cream 1 applic topical DAILY PRN (Reason: Wound Care) Patient Comments: uses prn Rx Instructions: apply a 1.5 mm thickness Victoza 2-Ronen 0.6 mg/0.1 mL (18 mg/3 mL) pen injector 1.2 mg subcut QAM Rx Instructions: INJECT 0.2ML (=1.2MG) SUBCUTANEOUSLY EVERY MORNING Eliquis 5 mg tablet 5 mg PO BID Rx Instructions: TAKE 1 TABLET TWICE A DAY cholestyramine-aspartame 4 gram Powder In Packet 4 g PO BIDWMEAL Rx Instructions: no meds 1 hr before/4-6 hr after dose furosemide [Lasix] 20 mg tablet 20 mg PO BID Discharge Orders: Discharge Order (Routine); Ordered 01/01/23 Ordered By: Ry Garcias/Other Patient Handouts: Understanding Pouchitis, Cancer: Preventing Infections, ED Cellulitis Admission Data Admit Date/Time: 12/30/22 14:15 Attending Provider: Jan Villeda Admit Provider: Gavin Moy Primary Care Provider: Josafat Kohler Other Providers: Gavin Moy ; Flakito Crowell Other Interventions: Discharge Summary Assessment (RN) Last Done: 01/01/23 13:57 Supervising Physician Co-Signing Physician Notes ATTESTATION I also saw the patient and confirmed lawrence portions of the history and exam. I agree with the impression and plan in the resident documentation, and as summarized below. No complaints this morning. Feels well. Wound team was in this morning and noted interval improvement. EXAM 106/70, 82, 18, 36.4, 99% on room air Alert and oriented. No distress. Heart is regular; lungs are clear, respirations nonlabored Extremities with bilateral, 1+ edema, distal third of lower extremities bilaterally DATA Labs Hemoglobin 8.4 WBC 3.74 Platelet count 65 Sodium 132 Micro Blood cultures collected 12/30/2022 showed no growth at 48 hours. IMPRESSION & PLAN Left lower extremity cellulitis Improved Continue Keflex at home Follow-up with PCP Hyponatremia Recheck BMP in 1 week We will resume home dose of Lasix today Antineoplastic chemotherapy induced pancytopenia Monitor CBC; recheck 1 week Additional per resident documentation Resident Activity Tracking Resident Involvement: Resident Care Provided Care Provided: Adult Hospital Medicine
[2023-01-01 10:08] LABS: BUN Creatinine Ratio 16.4 (10-20); Calcium 7.9 mg/dl (8.6-10.3); Creatinine Clr Calc Pharmacy 43.8 ml/min; Est GFR (African American) 54.2 ml/min; Est GFR (Non-African American) 46.8 ml/min; Potassium 4.2 mmol/L (3.5-5.1)
[2023-01-01] MEDS ORDERED: FUROSEMIDE 20 MG TAB PO STA (12:08)
[2023-01-01] MEDS: HEPARIN 100 UNIT/ML 5ML FLUSH FLUSH PRN (14:01)
--- NOTE | 2023-01-01 17:43 | Electrocardiogram Report ---
Test Reason : Blood Pressure : / mmHG Vent. Rate : 082 BPM Atrial Rate : 072 BPM P-R Int : 000 ms QRS Dur : 198 ms QT Int : 486 ms P-R-T Axes : 000 -76 092 degrees QTc Int : 567 ms Ventricular-paced rhythm with occasional Premature ventricular complexes Abnormal ECG When compared with ECG of 31-DEC-2022 05:31, Premature ventricular complexes are now Present Vent. rate has increased BY 2 BPM Confirmed by Lalit Lisa ([id number]) on 01/01/2023 5:43:16 PM Referred By: REFERRED SELF Confirmed By:Cody Lisa
--- NOTE | 2023-01-05 08:35 | Coding Query ---
PRESENT ON ADMISSION QUERY To promote full compliance with coding requirements relating to pateint care, physician participation is requested in all cases of lead etl developer uncertainty. Please assist us with the question(s) below: Please place an X within the parenthesis (x). The following diagnosis listed in this patient's medical record require physician assistance to determine if they were present on admission (POA) or not. Please advise for each diagnosis whether it was present on admission, not present on admission, or if it was clinically undetermined. 1. ANTINEOPLASTIC CHEMOTHERAPY INDUCED PANCYTOPENIA (documented on the Discharge Summary) (x ) Present On Admission ( ) Not Present On Admission ( ) Clinically Undetermined Thank you Kerri Jones *Definition of the present on admission (POA)-Present on admission is defined as present at the time the order for inpatient admission occurs. Conditions that develop during an outpatient encounter prior to a written order for inpatient admission (including emergency department, observation, or outpatient surgery) are considered present on admission. MTDD
--- NOTE | 2023-01-05 08:40 | Coding Query ---
CODING QUERY To promote full compliance with coding requirements relating to patient care, provider participation is requested in all cases of visual merchandise manager uncertainty. 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 twice daily". Please specify below, in your clinical opinion, regarding inferior vena cava thrombosis: (x ) Chronic inferior vena cava thrombosis was treated/monitored during this admission ( ) Acute inferior vena cava thrombosis was teated/monitored during this admission ( ) Inferior Vena Cava Thrombosis was not treated/monitored during this admission ( ) Other: Please Specify Physician's Response(s): Thank you Kerri Jones Principal Diagnosis: "that condition established after study, to be chiefly responsible for occasioning the admission of the patient to the hospital for care." Co-Existing Principal Diagnosis: "when two or more diagnoses equally meet the criteria for principal diagnosis as determined by the circumstances of admission, diagnostic work up, and/or therapy provided, and the Alphabetic Index, Tabular List, or another coding guideline does not provide sequencing direction, any one of the diagnoses may be sequenced first." "When the physician has documented what appears to be a current diagnosis in the body of the record, but has not included the diagnosis in the final diagnostic statement, the physician should be asked whether the diagnosis should be added." (Source Coding Clinic 2 QTR90. p3-4) HEIDI
== END 2023-01-01 15:28 | disposition home or self-care (01) | DRG 602 ==
LOC: ED 10:20 → 2N 14:15 → SUATTDRO 14:15 → 2N 16:29